=== PATIENT | male | born 1950 | race Caucasian/White ===

== ENCOUNTER → 2018-04-21 19:35 | Outpatient (CLI) | payer MEDICARE, SELFPAY ==
[2018-04-21 11:25] VITALS: BMI 24.0
[2018-04-21 19:42] LABS: Absolute Lymphocyte Count 1.43 X10^3/ul (0.83-4.51); Absolute Neutrophil Count 2.9 X10^3/uL (2.0-7.7); Basophil# 0.02 X10^3/uL; Basophil% 0.4 % (0-1); Eosinophil# 0.09 X10^3/uL; Eosinophils% 1.8 % (0-5); Hematocrit 44.3 % (40-54); Hemoglobin 14.5 g/dl (13.0-16.5); Lymphocyte # 1.43 X10^3/ul (4.0); Lymphocyte % 28.2 % (19-41); Mean Corp Hgb Conc 32.7 g/gl (32-36); Mean Corpuscular Hgb 29.1 pg (27.0-32.0); Mean Platelet Vol. 9.9 fl (6.2-12.0); Monocyte# 0.58 X10^3/uL; Monocyte% 11.4 % (0-10); Neutrophil # 2.93 X10^3/uL (2.7-7.7); Neutrophil % 57.8 % (47-70); Platelet Count 171 K/mm3 (150-450); RBC Distribution Width CV 12.4 % (11.6-14.6); RBC Distribution Width SD 39.4 fl (35.1-43.9); Red Blood Count 4.98 M/mm3 (4.6-6.2); White Blood Count 5.1 K/mm3 (4.4-11.0)
[2018-04-21 19:46] LABS: POSITIVE COUNT NO; POSITIVE DIFFERENTIAL NO; POSITIVE MORPHOLOGY NO
[2018-04-21 20:10] LABS: ALB/GLOB Ratio 1.3 RATIO (0.9-2.4); AST(SGOT) 25 U/L (15-37); Alanine Aminotransfer ALT/SGPT 36 U/L (16-61); Albumin, Serum 4.1 g/dL (3.2-5.0); Alkaline Phosphatase 85 U/L (45-117); Anion Gap 8 (5-15); BUN 16 mg/dL (7-18); BUN/Creat Ratio 10.7 RATIO (10-20); Calcium,Total 8.9 mg/dL (8.5-10.1); Chloride 105 mmol/L (98-107); Cholesterol 156 mg/dL (200); Creatinine, Serum 1.49 mg/dL (0.70-1.30); EST Glomerular Filtration Rate 50 mL/min (>60); Est Glom Filt Rate - Afr Amer 60 mL/min (>60); Globulin 3.2 g/dL (2.2-4.2); Glucose 101 mg/dL (74-106); High Density Lipoprotein 38 mg/dL; PSA,Total - Annual Screen 3.44 ng/mL (0.00-4.00); Potassium 4.5 mmol/L (3.5-5.1); Protein, Total 7.3 g/dL (6.4-8.2); Sodium Level 142 mmol/L (136-145); Triglycerides 148 mg/dL; Very Low Density Lipoprotein 30 mg/dL (5-40)
== END ==
PROVIDERS: Visit Provider Nurse Practitioner
DX: Z12.5 Encounter for screening for malignant neoplasm of prostate (principal); R35.0 Frequency of micturition; I10 Essential (primary) hypertension
CPT/HCPCS: 80053; 80061; 84153; 85025; G0103

== ENCOUNTER → 2018-07-18 | Outpatient (CLI) | payer MEDICARE, SELFPAY ==
[2018-05-19 12:24] VITALS: BMI 24.3
--- NOTE | 2018-07-18 10:24 | NEURO ---
NCS and/or EMG Patient Report Ordering Doctor: Saranya Bennett DATE OF SERVICE: 07/18/18 This is a left upper extremity EMG and nerve conduction study performed on this 67-year-old male who is right-handed but has had left-sided symptoms for 2 to 3 years including pain numbness tingling and burning which awakens the patient at night. This causes difficulty lying flat. There is also a history of rotator cuff repair on the left and a history of diabetes however this appears to be well controlled. He says all fingers are affected. Left upper extremity sensory and motor nerve conduction studies performed. The median motor and sensory distal latency is moderate to severely prolonged with severe reduction of amplitude and conduction velocity. The ulnar motor and sensory and radial sensory response is unremarkable. The median F wave is prolonged. Left upper extremity needle electromyography is performed. Muscles evaluate included the first interosseous, abductor pollicis brevis, brachial radialis, biceps, triceps and deltoid muscles. The abductor pollicis brevis muscle did demonstrate large motor units with early recruitment, increased insertional activity and 1+ fibrillation potentials. All other muscles including other C8 muscles demonstrated normal insertional activity with absence of pathologic spontaneous activity, normal motor unit recruitment pattern amplitude was otherwise noted. Impression: This is an abnormal elective physiologic study of left upper extremity consistent with severe carpal tunnel syndrome at the left wrist.
== END | disposition home or self-care (01) ==
LOC: PSN 06:47
PROVIDERS: Family Provider Nurse Practitioner; PCP Nurse Practitioner; Referring Provider Nurse Practitioner; Visit Provider Nurse Practitioner
DX: M79.2 Neuralgia and neuritis, unspecified (principal); R20.0 Anesthesia of skin
CPT/HCPCS: 95886; 95909

== ENCOUNTER → 2018-07-31 | Outpatient (CLI) | payer MEDICARE, SELFPAY ==
[2018-07-31 10:31] VITALS: BMI 24.3
--- NOTE | 2018-07-31 10:40 | RAD_ITS ---
STUDY: X-RAY - CERVICAL SPINE REASON FOR EXAM: Male, 67 years old. Neck pain. TECHNIQUE: 4 view(s) of the cervical spine were obtained. COMPARISON: None FINDINGS: Normal anterior atlantoaxial articulation. Normal odontoid process. Straightening of normal cervical lordosis compatible with muscle spasm or patient positioning. No significant motion in flexion or extension. Disc space narrowing C3-C4 to C6-C7 with small marginal osteophytes at several levels. Multilevel uncovertebral joint hypertrophy. The soft tissue structures are unremarkable. RAD/Cerv Spine 4 or 5 Views IMPRESSION: Multilevel degenerative changes of the cervical spine. No significant motion in flexion or extension. Electronically Signed: Carloz Patterson MD at 5:31 EDT , Service support ,
== END | disposition home or self-care (01) ==
LOC: HPRAD 10:39
PROVIDERS: Family Provider Nurse Practitioner; PCP Nurse Practitioner; Referring Provider Orthopaedic Surgery; Visit Provider Orthopaedic Surgery
DX: M54.2 Cervicalgia (principal); R20.0 Anesthesia of skin
CPT/HCPCS: 72050

== ENCOUNTER → 2019-09-11 20:52 | Outpatient (CLI) | payer MEDICARE, SELFPAY ==
[2019-09-11 15:21] VITALS: BMI 22.9
[2019-09-11 21:10] LABS: Absolute Lymphocyte Count 1.61 X10^3/uL (0.83-4.51); Absolute Neutrophil Count 3.8 X10^3/uL (2.0-7.7); Basophil# 0.03 X10^3/uL; Basophil% 0.5 % (0-1); Eosinophil# 0.11 X10^3/uL; Eosinophils% 1.8 % (0-5); Hematocrit 43.1 % (40-54); Lymphocyte # 1.61 X10^3/ul (4.0); Lymphocyte % 26.5 % (19-41); Mean Corp Hgb Conc 32.5 g/dL (32-36); Mean Corpuscular Hgb 29.3 pg (27.0-32.0); Mean Corpuscular Volume 90.2 fL (80-94); Mean Platelet Vol. 10.6 fl (6.2-12.0); Monocyte# 0.53 X10^3/uL; Monocyte% 8.7 % (0-10); NRBC Flagged by Analyzer 0 % (0-5); Neutrophil # 3.77 X10^3/uL (2.7-7.7); Neutrophil % 62.2 % (47-70); Platelet Count 155 K/mm3 (150-450); RBC Distribution Width CV 12.3 % (11.6-14.6); RBC Distribution Width SD 40.9 fl (35.1-43.9); Red Blood Count 4.78 M/mm3 (4.6-6.2); White Blood Count 6.1 K/mm3 (4.4-11.0)
[2019-09-11 21:26] LABS: ALB/GLOB Ratio 1.4 RATIO (0.9-2.4); AST(SGOT) 19 U/L (15-37); Alanine Aminotransfer ALT/SGPT 41 U/L (16-61); Albumin, Serum 4.1 g/dL (3.2-5.0); Alkaline Phosphatase 72 U/L (45-117); Anion Gap 4 (5-15); BUN 16 mg/dL (7-18); BUN/Creat Ratio 15.1 RATIO (10-20); Calcium,Total 9.1 mg/dL (8.5-10.1); Chloride 109 mmol/L (98-107); Cholesterol 162 mg/dL (200); Creatinine, Serum 1.06 mg/dL (0.70-1.30); EST Glomerular Filtration Rate 74 mL/min (>60); Est Glom Filt Rate - Afr Amer 89 mL/min (>60); Glucose 122 mg/dL (74-106); High Density Lipoprotein 35 mg/dL; Potassium 3.9 mmol/L (3.5-5.1); Protein, Total 7.1 g/dL (6.4-8.2); Sodium Level 141 mmol/L (136-145); Triglycerides 328 mg/dL; Very Low Density Lipoprotein 66 mg/dL (5-40)
== END ==
PROVIDERS: PCP Nurse Practitioner; Referring Provider Nurse Practitioner; Visit Provider Nurse Practitioner
DX: I10 Essential (primary) hypertension (principal)
CPT/HCPCS: 80053; 80061; 85025

== ENCOUNTER → 2020-10-30 | Outpatient (CLI) | payer MEDICARE, OTHER, SELFPAY ==
[2020-10-30 23:37] LABS: Absolute Lymphocyte Count 1.31 X10^3/uL (0.83-4.51); Absolute Neutrophil Count 5.5 X10^3/uL (2.0-7.7); Basophil# 0.05 X10^3/uL; Basophil% 0.7 % (0-1); Eosinophil# 0.05 X10^3/uL; Eosinophils% 0.7 % (0-5); Hematocrit 42.9 % (40-54); Hemoglobin 14.2 g/dL (13.0-16.5); Lymphocyte # 1.31 X10^3/ul (0.83-4.51); Lymphocyte % 17.8 % (19-41); Mean Corp Hgb Conc 33.1 g/dL (32-36); Mean Corpuscular Hgb 29.8 pg (27.0-32.0); Mean Corpuscular Volume 89.9 fL (80-94); Mean Platelet Vol. 9.9 fl (6.2-12.0); Monocyte# 0.41 X10^3/uL; Monocyte% 5.6 % (0-10); NRBC Flagged by Analyzer 0 % (0-5); Neutrophil % 74.8 % (47-70); Platelet Count 156 K/mm3 (150-450); RBC Distribution Width CV 12.3 % (11.6-14.6); Red Blood Count 4.77 M/mm3 (4.6-6.2); White Blood Count 7.4 K/mm3 (4.4-11.0)
[2020-10-31 00:04] LABS: ALB/GLOB Ratio 1.1 RATIO (0.9-2.4); AST(SGOT) 20 U/L (15-37); Alanine Aminotransfer ALT/SGPT 44 U/L (16-61); Albumin, Serum 3.8 g/dL (3.2-5.0); Alkaline Phosphatase 75 U/L (45-117); Anion Gap 3 (5-15); BUN 22 mg/dL (7-18); BUN/Creat Ratio 21.6 RATIO (10-20); Calcium,Total 8.7 mg/dL (8.5-10.1); Chloride 105 mmol/L (98-107); Cholesterol 151 mg/dL (200); Creatinine, Serum 1.02 mg/dL (0.70-1.30); EST Glomerular Filtration Rate 77 mL/min (>60); Est Glom Filt Rate - Afr Amer 93 mL/min (>60); Globulin 3.6 g/dL (2.2-4.2); Glucose 194 mg/dL (74-106); High Density Lipoprotein 47 mg/dL; PSA,Total- Diagnostic 4.31 ng/mL (0.0-4.0); Potassium 4.2 mmol/L (3.5-5.1); Protein, Total 7.4 g/dL (6.4-8.2); Sodium Level 137 mmol/L (136-145); Triglycerides 117 mg/dL; Very Low Density Lipoprotein 23 mg/dL (5-40)
== END | disposition home or self-care (01) ==
PROVIDERS: PCP Nurse Practitioner; Referring Provider Nurse Practitioner; Visit Provider Nurse Practitioner
DX: I10 Essential (primary) hypertension (principal); E11.65 Type 2 diabetes mellitus with hyperglycemia; R35.0 Frequency of micturition
CPT/HCPCS: 80053; 80061; 83036; 84153; 85025

== ENCOUNTER → 2021-11-16 | Outpatient (CLI) | payer MEDICARE, OTHER, SELFPAY ==
[2021-11-16 22:30] LABS: Absolute Lymphocyte Count 1.71 X10^3/uL (0.83-4.51); Absolute Neutrophil Count 4.4 X10^3/uL (2.0-7.7); Basophil# 0.04 X10^3/uL; Basophil% 0.6 % (0-1); Eosinophil# 0.07 X10^3/uL; Hematocrit 42.9 % (40-54); Hemoglobin 14.3 g/dL (13.0-16.5); Lymphocyte # 1.71 X10^3/ul (0.83-4.51); Lymphocyte % 24.7 % (19-41); Mean Corp Hgb Conc 33.3 g/dL (32-36); Mean Corpuscular Hgb 30.2 pg (27.0-32.0); Mean Corpuscular Volume 90.5 fL (80-94); Mean Platelet Vol. 10.4 fl (6.2-12.0); Monocyte# 0.57 X10^3/uL; Monocyte% 8.2 % (0-10); NRBC Flagged by Analyzer 0 % (0-5); Neutrophil # 4.43 X10^3/uL (2.7-7.7); Neutrophil % 64.2 % (47-70); Platelet Count 164 K/mm3 (150-450); RBC Distribution Width CV 12.2 % (11.6-14.6); RBC Distribution Width SD 40.5 fl (35.1-43.9); Red Blood Count 4.74 M/mm3 (4.6-6.2); White Blood Count 6.9 K/mm3 (4.4-11.0)
[2021-11-16 22:55] LABS: ALB/GLOB Ratio 1.1 RATIO (0.9-2.4); AST(SGOT) 18 U/L (15-37); Alanine Aminotransfer ALT/SGPT 36 U/L (16-61); Alkaline Phosphatase 97 U/L (45-117); Anion Gap 7 (5-15); BUN 26 mg/dL (7-18); BUN/Creat Ratio 22.6 RATIO (10-20); Chloride 105 mmol/L (98-107); Cholesterol 175 mg/dL (200); Creatinine, Serum 1.15 mg/dL (0.70-1.30); EST Glomerular Filtration Rate 67 mL/min (>60); Est Glom Filt Rate - Afr Amer 81 mL/min (>60); Globulin 3.6 g/dL (2.2-4.2); Glucose 112 mg/dL (74-106); High Density Lipoprotein 38 mg/dL; PSA,Total - Annual Screen 5.96 ng/mL (0.00-4.00); Potassium 4.5 mmol/L (3.5-5.1); Protein, Total 7.6 g/dL (6.4-8.2); Sodium Level 139 mmol/L (136-145); Thyroid Stim Hormone (TSH) 4.63 uIU/mL (0.358-3.74); Triglycerides 248 mg/dL; Very Low Density Lipoprotein 50 mg/dL (5-40)
== END | disposition home or self-care (01) ==
PROVIDERS: PCP Nurse Practitioner; Visit Provider Nurse Practitioner
DX: I10 Essential (primary) hypertension (principal); E11.65 Type 2 diabetes mellitus with hyperglycemia; R97.20 Elevated prostate specific antigen [PSA]
CPT/HCPCS: 80053; 80061; 84153; 84443; 85025; G0103

== ENCOUNTER → 2022-01-11 | Outpatient (CLI) | payer MEDICARE, OTHER, SELFPAY ==
[2022-01-11 23:45] LABS: PSA,Total- Diagnostic 7.03 ng/mL (0.0-4.0); Thyroid Stim Hormone (TSH) 2.06 uIU/mL (0.358-3.74)
[2022-01-14 15:29] LABS: PSA, Free 0.67 ng/mL; PSA, Free % 11.7 % (.)
== END | disposition home or self-care (01) ==
PROVIDERS: PCP Nurse Practitioner; Visit Provider Nurse Practitioner
DX: R35.0 Frequency of micturition (principal); E11.65 Type 2 diabetes mellitus with hyperglycemia; E03.9 Hypothyroidism, unspecified; R97.20 Elevated prostate specific antigen [PSA]
CPT/HCPCS: 84153; 84154; 84443

== ENCOUNTER → 2023-01-06 | Outpatient (CLI) | payer MEDICARE, OTHER, SELFPAY ==
[2023-01-06 21:34] LABS: Absolute Lymphocyte Count 1.85 X10^3/uL (0.83-4.51); Absolute Neutrophil Count 4.2 X10^3/uL (2.0-7.7); Basophil# 0.05 X10^3/uL; Basophil% 0.7 % (0-1); Eosinophil# 0.29 X10^3/uL; Eosinophils% 4.2 % (0-5); Hematocrit 43.7 % (40-54); Hemoglobin 14.2 g/dL (13.0-16.5); Lymphocyte # 1.85 X10^3/ul (0.83-4.51); Lymphocyte % 26.7 % (19-41); Mean Corp Hgb Conc 32.5 g/dL (32-36); Mean Corpuscular Hgb 29.5 pg (27.0-32.0); Mean Corpuscular Volume 90.9 fL (80-94); Mean Platelet Vol. 10.2 fl (6.2-12.0); Monocyte# 0.52 X10^3/uL; Monocyte% 7.5 % (0-10); NRBC Flagged by Analyzer 0 % (0-5); Neutrophil # 4.16 X10^3/uL (2.7-7.7); Platelet Count 181 K/mm3 (150-450); RBC Distribution Width CV 12.6 % (11.6-14.6); RBC Distribution Width SD 42.3 fl (35.1-43.9); Red Blood Count 4.81 M/mm3 (4.6-6.2); White Blood Count 6.9 K/mm3 (4.4-11.0)
[2023-01-06 21:55] LABS: ALB/GLOB Ratio 1.1 RATIO (0.9-2.4); AST(SGOT) 29 U/L (15-37); Alanine Aminotransfer ALT/SGPT 61 U/L (16-61); Alkaline Phosphatase 86 U/L (45-117); Anion Gap 4 (5-15); BUN 22 mg/dL (7-18); BUN/Creat Ratio 21.6 RATIO (10-20); Calcium,Total 9.1 mg/dL (8.5-10.1); Chloride 107 mmol/L (98-107); Cholesterol 255 mg/dL (200); Creatinine, Serum 1.02 mg/dL (0.70-1.30); EST Glomerular Filtration Rate 76 mL/min (>60); Est Glom Filt Rate - Afr Amer 92 mL/min (>60); Globulin 3.5 g/dL (2.2-4.2); Glucose 113 mg/dL (74-106); High Density Lipoprotein 37 mg/dL; Magnesium 2.3 mg/dL (1.6-2.6); Potassium 4.7 mmol/L (3.5-5.1); Protein, Total 7.5 g/dL (6.4-8.2); Sodium Level 140 mmol/L (136-145); Thyroid Stim Hormone (TSH) 4.13 uIU/mL (0.358-3.74); Triglycerides 389 mg/dL; Very Low Density Lipoprotein 78 mg/dL (5-40)
[2023-01-06 22:30] LABS: Hemoglobin A1c 6.1 % (3.8-5.6)
== END | disposition home or self-care (01) ==
PROVIDERS: PCP Nurse Practitioner; Referring Provider Nurse Practitioner; Visit Provider Nurse Practitioner
DX: E11.65 Type 2 diabetes mellitus with hyperglycemia (principal); G25.81 Restless legs syndrome; E03.9 Hypothyroidism, unspecified; I10 Essential (primary) hypertension
CPT/HCPCS: 80053; 80061; 83036; 83735; 84443; 85025

== ENCOUNTER → 2023-03-24 | Outpatient (CLI) | payer MEDICARE, OTHER, SELFPAY ==
--- OUTSIDE RECORDS SUMMARY | 2023-03-24 20:52 | XMS RPT_ITS | CCD ---
Author Name Unknown Address [address] [place] [address] Organization [facility] Care Team Providers Care 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 Name Role Phone Donald AGENCY CASHIER.Jerel EID Primary Care Provide r Radha Lazo DO Unavailable None, No PCP Unavailable Unavailable Unavailable Unavailable Donald AGENCY CASHIER.Jerel EID Primary Care Provide r Radha Lazo DO Unavailable Jerel Clemens Unavailable [phone] Donald AGENCY CASHIER.Jerel EID Primary Care Provide r YUSUF ODEN Referring Unavailable Donald, . Jerel L Primary Care Unavailab YUSUF Salazar Attending Unavailable Donald, Ms. Beaver L Primary Care Unavailab thuan Clemens, Ms. Beaver L Referring Unavailab YUSUF Salazar Attending Unavailable YUSUF ODEN Referring Unavailable YUSUF ODEN Attending Unavailable YUSUF ODEN Attending Unavailable YUSUF ODEN Attending Unavailable PCP, Pt States None Referring Unavailable Donald AGENCY CASHIER-Jerel EID Primary Care Provide r ALFREDO MARIE Attending Unavail able Zeina Chaparro Referring Unavailable Zeina Chaparro Attending Unavailable HANNAH WAY Attending Unavailable JEREL CLEMENS Primary Care Unavailable BRAYDON TELLEZ Attending Unavailable ERIN COE Referring Unavailable BRAYDON TELLEZ Referring Unavailable DESI NICOLAS Attending Unavailable DESI NICOLAS Referring Unavailable Allergies Allergy Classification Reported Allergen(s) Allergy Type Date of Onset Reaction(s) Facility (12 sources) Acetaminophen / HYDROcodone; Translations: [HYDROCODONE-ACETA MINOPHEN] Drug Allergy 1 Other: See Comments, Unknown [facility] (15 sources) Acetaminophen / oxyCODONE; Translations: [Percocet TABS] Drug Allergy 1 Intolerance, Unknown [facility] (12 sources) traMADol; Translations: [TRAMADOL HCL] Drug Allergy 1 Intolerance, Unknown [facility] (2 sources) Acetaminophen / HYDROcodone; Translations: [Vicodin TABS] Drug Allergy KF-Nfpuqcw-Su rma 411 DO Work Phone: (2 sources) Acetaminophen / traMADol; Translations: [traMADol-Acetamin ophen TABS] Drug Allergy [facility]Zuddhg[facility]-No rma 411 DO Work Phone: Medications Current Medications Medication Drug Class(es) Dates Sig (Normalized) Sig (Original) polyethylene glycol 3350 204376 mg / potassium chloride 2970 mg / sodium bicarbonate 6740 mg / sodium chloride 5860 mg / sodium sulfate 44335 mg powder for oral solution (1 source) Osmotic Laxative Start: 12-08-2022 End: 12-08-2022 peg 3350-Electrolytes (GOLYTELY) 236-22.74-6.74 -5.86 gram suspension Indications: Colon cancer screening Take 4,000 mL by mouth one time only for 1 dose. Refer to printed prep instructions from your provider. 4000 mL 0 12/08/2022 12/08/2022 Active Completed/Discontinued Medications Medication Drug Class(es) Dates Sig (Normalized) Sig (Original) ascorbic acid 500 mg chewable tablet (2 sources) Vitamin C Ascorbic Acid (STRAWBERRY C) 500 mg chew Take by mouth. 0 Active Problems Active Problems Problem Classification Problem Date Documented Date Episodic/Chronic Anxiety disorders (1 source) Anxiety disorder, unspecified; Translations: [Anxiety] Onset: 03-15-2023 Chronic Diabetes mellitus with complications (10 sources) Type 2 diabetes mellitus; Translations: [Type 2 diabetes mellitus with diabetic polyneuropathy] Onset: 12-20-2021 Chronic Diabetes mellitus without complication (1 source) Latent autoimmune diabetes mellitus in adult; Translations: [Other specified diabetes mellitus without complications] Onset: 12-02-2022 12-08-2022 Chronic Disorders of lipid metabolism (6 sources) Hyperlipidemia; Translations: [Hyperlipidemia, unspecified] Onset: 02-09-2012 02-09-2012 Chronic Esophageal disorders (1 source) Gastroesophageal reflux disease; Translations: [Gastro-esophageal reflux disease without esophagitis] 01-02-2023 Chronic Essential hypertension (6 sources) Hypertensive disorder; Translations: [Essential (primary) hypertension] Onset: 10-18-2010 10-18-2010 Chronic Headache; including migraine (6 sources) Migraine with aura; Translations: [Migraine with aura, not intractable, without status migrainosus] Onset: 05-16-2012 05-16-2012 Chronic Miscellaneous mental health disorders (1 source) Globus sensation; Translations: [Globus sensation] Onset: 02-17-2023 Chronic Non-Hodgkin`s lymphoma (2 sources) Unspecified B-cell lymphoma, extranodal and solid organ sites; Translations: [Cutaneous B-cell lymphoma (HCC)] Onset: 03-07-2023 Chronic Other endocrine disorders (6 sources) Male hypogonadism; Translations: [Testicular hypofunction] Onset: 10-20-2011 10-20-2011 Chronic Other male genital disorders (3 sources) Male erectile dysfunction, unspecified; Translations: [Erectile dysfunction] Onset: 12-08-2022 12-08-2022 Chronic Other nervous system disorders (9 sources) Mortons neuroma of right foot; Translations: [Lesion of plantar nerve, right lower limb] Onset: 12-20-2021 Chronic Other nutritional; endocrine; and metabolic disorders (6 sources) Metabolic syndrome X; Translations: [Metabolic syndrome] Onset: 02-09-2012 02-09-2012 Chronic Other screening for suspected conditions (not mental disorders or infectious disease) (8 sources) Raised prostate specific antigen; Translations: [Elevated prostate specific antigen [PSA]] Onset: 02-05-2022 Episodic Other upper respiratory disease (6 sources) Allergic rhinitis; Translations: [Allergic rhinitis, unspecified] Onset: 10-18-2010 10-18-2010 Chronic Other upper respiratory disease (1 source) Feeling of lump in throat; Translations: [Globus sensation] 12-08-2022 Episodic Residual codes; unclassified (6 sources) Obstructive sleep apnea syndrome; Translations: [Obstructive sleep apnea (adult) (pediatric)] Onset: 02-07-2012 02-07-2012 Chronic Thyroid disorders (1 source) Hypothyroidism; Translations: [Hypothyroidism, unspecified] Onset: 12-02-2022 12-08-2022 Chronic Past or Other Problems Problem Classification Problem Date Documented Date Episodic/Chronic Calculus of urinary tract (6 sources) Kidney stone; Translations: [Calculus of kidney] Onset: 1 10-18-2010 Episodic Diabetes mellitus without complication (6 sources) Impaired fasting glycemia; Translations: [Impaired fasting glucose] Onset: 2 02-09-2012 Episodic Malaise and fatigue (6 sources) Fatigue; Translations: [Other fatigue] Onset: 2 10-20-2011 Episodic Mycoses (6 sources) Onychomycosis; Translations: [Tinea unguium] Onset: 2 Episodic Other connective tissue disease (9 sources) Capsulitis of metatarsophalangeal joint of right foot; Translations: [Other enthesopathy of right foot and ankle] Onset: 2 Episodic Other connective tissue disease (9 sources) Pain in right foot; Translations: [Pain in right foot] Onset: 2 Episodic Other injuries and conditions due to external causes (6 sources) Corneal foreign body; Translations: [Foreign body in cornea, unspecified eye, initial encounter] Onset: 7 04-22-2016 Episodic Other skin disorders (6 sources) Asteatosis cutis; Translations: [Xerosis cutis] Onset: 2 Episodic Residual codes; unclassified (6 sources) Family history of diabetes mellitus; Translations: [Family history of diabetes mellitus] Onset: 1 02-15-2021 Episodic Residual codes; unclassified (6 sources) Family history of prostate cancer; Translations: [Family history of malignant neoplasm of prostate] Onset: 2 10-20-2011 Episodic Results Test Name Value Interpretation Reference Range Facil ity Vital Signs Date Time Vital Sign Value Performing Clinician Facility 03-24-2022 08:16-0500 Body weight 72.58 kg Jerel Clemens Work Phone: QL-Vxwuqwn-Axwxhgh nd Work Phone: 03-24-2022 08:16-0500 Diastolic blood pressure 84 mm[Hg] Jerel Clemens Work Phone: HV-Zyfouff-Xpvmkoy nd Work Phone: 03-24-2022 08:16-0500 Heart rate 64 /min Jerel Clemens Work Phone: DT-Lhkxckl-Nivjuly nd Work Phone: 03-24-2022 08:16-0500 Systolic blood pressure 138 mm[Hg] Jerel Clemens Work Phone: PJ-Ixfmumy-Jccpqda nd Work Phone: 01-21-2022 09:59-0500 Body height 175.3 cm Yusuf Luo DPM Work Phone: [facility] 01-21-2022 09:59-0500 Body temperature 98.6 [degF] Yusuf Luo DPM Work Phone: [facility] 01-21-2022 09:59-0500 Body weight 77.11 kg Yusuf Luo DPM Work Phone: [facility] 01-18-2022 10:42-0500 Body temperature 96.3 [degF] No PCP None KL-Hcvucfb-Jyix a 411 DO Work Phone: 01-18-2022 10:42-0500 Body weight 68.04 kg No PCP None BJ-Zjgmvfv-Raior 411 DO Work Phone: 01-18-2022 10:42-0500 Diastolic blood pressure 68 mm[Hg] No PCP None SY-Ghjjhde-Adsgu 411 DO Work Phone: 01-18-2022 10:42-0500 Heart rate 64 /min No PCP None WE-Roimbfr-Kwqgu 411 DO Work Phone: 01-18-2022 10:42-0500 Systolic blood pressure 124 mm[Hg] No PCP None TY-Yycgvou-Eixsj 411 DO Work Phone: 12-29-2021 08:28-0500 Body height 175.3 cm Yusuf Luo DPM Work Phone: [facility] 12-29-2021 08:28-0500 Body temperature 98.91 [degF] Yusuf Luo DPM Work Phone: [facility] 12-29-2021 08:28-0500 Body weight 77.11 kg Yusuf Luo DPM Work Phone: [facility] 12-20-2021 11:18-0400 Body height 175.3 cm Yusuf Luo DPM Work Phone: [facility] 12-20-2021 11:18-0400 Body temperature 98.4 [degF] Yusuf Luo DPM Work Phone: [facility] 12-20-2021 11:18-0400 Body weight 77.11 kg Yusuf Luo DPM Work Phone: [facility] Encounters Encounter Date Encounter Type Care Provider Facility Start: 03-15-2023 End: 03-16-2023 ambulatory DESI NICOLAS Facility:[facility] Start: 03-15-2023 End: 03-16-2023 ambulatory DESI NICOLAS Facility:[facility] Start: 03-07-2023 End: 03-08-2023 ambulatory BRAYDON TELLEZ Facility:[facility] Start: 03-07-2023 End: 03-07-2023 ambulatory BRAYDON Huynh ROSALINDA Facility:[facility] Start: 02-17-2023 End: 02-17-2023 ambulatory ALFREDO SULLIVAN Facility:[facility] Start: 01-05-2023 End: 01-05-2023 Office outpatient visit 15 minutes Yusuf Oden MD Work Phone: [facility] Procedures Date Procedure Procedure Detail Performing Clinician Start: 11-16-2022 Follow-up visit Start: 03-31-2022 Follow-up visit Start: 02-17-2022 Follow-up visit Start: 11-28-2016 Colonoscopy Yusuf dietrich DPM Work Phone: Plan of Treatment Date Care Activity Detail Author Start: 11-10-2023 Annual PCP Team Chronic Disease Visit Annual PCP Team Chronic Disease Visit [facility] Start: 01-04-2023 3 comp foot exam completed DIABETIC FOOT EXAM [facility] Start: 10-21-2022 Influenza vaccination [facility] Start: 03-31-2022 VANESSA, Provider: Yusuf Oden, Status: Shamir, Time: 1:20 PM VANESSA, Provider: Yusuf Oden, Status: Shamir, Time: 1:20 PM EW-Sfowhdr-Gigkeezof Work Phone: Start: 02-20-2022 ADVANCE DIRECTIVE DISCUSSION ADVANCE DIRECTIVE DISCUSSION [facility] Start: 02-20-2022 DEPRESSION ASSESSMENT DEPRESSION ASSESSMENT [facility] Start: 02-17-2022 VANESSA, Provider: Yusuf Oden, Status: Shamir, Time: 9:50 AM VANESSA, Provider: Yusuf Oden, Status: Pen, Time: 9:50 AM HU-Pllhyui-Dsyhm 411 DO Work Phone: Start: 10-21-2021 Influenza vaccination INFLUENZA (#1) [facility] Start: 05-23-2021 Urine microalbumin profile [facility] Start: 02-20-2021 ADVANCE DIRECTIVE DISCUSSION ADVANCE DIRECTIVE DISCUSSION [facility] Start: 02-20-2021 DEPRESSION ASSESSMENT DEPRESSION ASSESSMENT [facility] Start: 11-28-2017 Colonoscopy COLONOSCOPY [facility] Start: 11-28-2017 COLORECTAL CANCER SCREENING COLORECTAL CANCER SCREENING [facility] Start: 06-22-2015 Hepatitis B surface antibody level LDL CHOLESTEROL [facility] Start: 12-22-2014 Hemoglobin A1c/Hemoglobin.total in Blood HBA1C [facility] Start: 2010 Hepatitis B Vaccine (1 of 3 - Risk 3-dose series) Hepatitis B Vaccine (1 of 3 - Risk 3-dose series) [facility] Start: 2010 RSV Vaccine (1 - 1-dose 60+ series) RSV Vaccine (1 - 1-dose 60+ series) [facility] Start: 2000 SHINGRIX VACCINE (1 of 2) SHINGRIX VACCINE (1 of 2) [facility] Start: 2000 Zoster Vaccines (1 of 2) Zoster Vaccines (1 of 2) [facility] Start: 12-26-1995 COLOGUARD (FIT-DNA) COLOGUARD (FIT-DNA) [facility] Start: 12-26-[address] COLONOGRAPHY [facility] Start: 12-26-1995 FECAL OCCULT BLOOD FECAL OCCULT BLOOD [facility] Start: 12-26-1995 SIGMOIDOSCOPY SIGMOIDOSCOPY [facility] Start: 1972 DTaP/Tdap/Td Vaccines (1 - Tdap) DTaP/Tdap/Td Vaccines (1 - Tdap) [facility] Start: 1969 Urine screening for protein Diabetes: Urine Protein Screening [facility] Start: 1968 ANNUAL PCP TEAM CHRONIC DISEASE VISIT ANNUAL PCP TEAM CHRONIC DISEASE VISIT [facility] Start: 1968 BP CONTROLLED (<130/80) BP CONTROLLED (<130/80) [facility] Start: 1968 Hepatitis C screening Hepatitis C Screening [facility] Start: 1960 3 comp foot exam completed DIABETIC FOOT EXAM [facility] Start: 1960 Diabetic foot examination Diabetes: Foot Exam [facility] Start: 1960 Glaucoma screening Diabetes: Retinopathy Screening [facility] Start: 1960 Hepatitis B screening URINE ALBUMIN:CREATININE RATIO [facility] Start: 1960 Hepatitis C antibody, confirmatory test DILATED RETINAL EXAM [facility] Start: 1956 Pneumococcal Vaccine: 65+ (1 - PCV) Pneumococcal Vaccine: 65+ (1 - PCV) [facility] Start: 1956 Pneumococcal Vaccine: 65+ Years (1 - PCV) Pneumococcal Vaccine: 65+ Years (1 - PCV) [facility] Start: 1956 PNEUMOCOCCAL: 65+ (1 - PCV) PNEUMOCOCCAL: 65+ (1 - PCV) [facility] Start: 06-25-1951 COVID-19 VACCINE (#1) COVID-19 VACCINE (#1) [facility] Start: 1950 Cyanocobalamin vitamin b-12 Vitamin B-12 [facility] Start: 1950 Diabetes: Celiac Disease Screening Diabetes: Celiac Disease Screening [facility] Start: 1950 Hemoglobin A1c measurement Diabetes: Hemoglobin A1C [facility] Start: 1950 Lipid panel Lipid Panel [facility] Start: 1950 Medicare Annual Wellness Visit Medicare Annual Wellness Visit (AWV) [facility] Start: 1950 Screening for malignant neoplasm of colon [facility] Start: 1950 Thyroid stimulating hormone measurement TSH Level [facility] End: 12-09-2023 EGD DIAGNOSTIC EGD DIAGNOSTIC Endoscopy Routine Globus sensation 1 Occurrences starting 12/08/2022 until 12/09/2023 [facility] Work Phone: Immunizations Immunization Date Immunization Notes Care Provider Fa cili 12-20-2019 influenza, high dose seasonal, preservative-free Zeina LEWIS-Tamiko Work Phone: [facility] 12-20-2019 influenza virus vacc ine, unspecified formulation Zeina LEWIS-Tamiko Work Phone: [facility] 05-24-2011 tetanus toxoid, redu tiffanie diphtheria toxoid, and acellular pertussis vaccine, adsorbed Yusuf Luo DPM Work Phone: [facility] Payers Date Payer Category Payer Unknown [id number] 2017 Medicare [id number] 2017 Medicare [id number] 2016 Unknown [id number] 1950 Unknown [id number] [id number]. [id number] 1950 Unknown [id number] [id number]. [id number] 1950 Unknown [id number] 2.16. [id number] 1950 Unknown [id number] 2.16. [id number] 1950 Unknown [id number] 2.16. [id number] Self-pay [id number] Social History Date Type Detail Facility Start: 10-19-2011 Tobacco smoking status NHIS Never smoked tobacco [facility] Start: 10-19-2011 Tobacco use and exposure Smokeless tobacco non-user [facility] Start: 12-20-2021 End: 11-09-2022 Alcohol intake Current drinker of alcohol (finding) [facility] Start: 12-20-2021 End: 08-22-2022 Alcohol intake [facility] Start: 03-18-2013 Alcohol Comment occasionally [facility] Start: 1950 Sex Assigned At Not on file [facility] Start: 01-04-2022 End: 01-14-2022 Exposure to SARS-CoV-2 (event) Not sure [facility] Start: 08-22-2022 End: 11-08-2022 [facility] [employer] [facility] Has the Ongo, IMANIN, or water [employer] threatened to shut off services in your home in past 12Mo No [facility] Do you belong to any clubs or organizations such as mu-ism groups, unions, fraternal or athletic groups, or school groups? Yes [facility] How often do you att end meetings of the clubs or organizations you belong to? Patient refused [facility] Are you now , , , , never or living with a partner? Living with partner [facility] Do you feel stress - tense, restless, nervous, or anxious, or unable to sleep at night because your mind is troubled all the time - these days [OSQ] Not at all [facility] (I/We) worried whesevero er (my/our) food would run out before (I/we) got money to buy more. Never true [facility] The food that (I/we) bought just didn't last, and (I/we) didn't have money to get more. DK or Refused [facility] Tobacco smoking stat us WVIS Tobacco smoking consumption unknown [facility] Work Phone: Medical Equipment Procedure Code Equipment Code Equipment Origin al Text Equipment Identifier Dates Start: 07-16-2014 Clinical Notes 10-20-2011 to 03-15-2023 Yusuf Oden MD - 01/05/2023 8:10 AM ESTPatient InstructionsZeina Chaparro PA-C - 12/08/2022 12:22 PM Abram Luo DPM - 01/21/2022 10:04 AM EST Note Date & Type Note Facility 03-15-2023 Note HNO ID: [id number] Author: DESI NICOLAS APRN.CNP Service: ? Author Type: Nurse Practitioner Type: Procedures Filed: 03/15/2023 10:27 Note Text: BEDSIDE PROCEDURE NOTE BONE MARROW BIOPSY Performed by: Desi Nicolas APRN.AMBULANCE DISPATCHER Authorized by: Desi Nicolas APRN.CNP Where was Patient When this Procedure was Performed [facility] Ambulatory Informed Consent Consent Obtained: Written [place] Protocol A moment to CARE was completed. SIGN IN Personnel directly involved with the procedure wore the appropriate PPE. Special Equipment: Yes (Power Drill) Patient/Surrogate Stated/Verified: Patient name, Date of , Relevant allergies and Intended procedure TIME OUT Intended patient and procedure match the source document(s). Consent documented and matches the intended procedure. Relevant labs, photos, and/or imaging studies have been reviewed. Correct side/site marked and visible. Medications required for procedure verified. No fire risk assessment and interventions applicable. No implant(s) inserted. Pre-procedure Details: The area was prepped with povidone Iodine (Betadine) and allowed to dry. A sterile partial body drape was applied following the usual aseptic technique. Medications: Local Anesthesia (see MAR): Lidocaine 2% (5 mL) Procedure Details: Patient Position: Left lateral decubitus Aspiration Laterality: Unilateral Aspiration Site: Right posterior superior iliac crest Biopsy Laterality: Unilateral Biopsy Site: Right posterior sperior iliac crest . Hubsphere biopsy system was used. Using aseptic technique, bone marrow aspiration was performed. A touch prep was taken. Core biopsy was obtained 1.1 cm. The core biopsy was confirmed. Pressure dressing applied to Bone Marrow site(s). Hemostasis maintained. Assisting Clinician(s): Kasey (Dunamu) Tatiana AVELAR Post-procedure Details: Patient tolerated the procedure well with no immediate complications Immediate Complications: None Estimated Blood Loss: none Specimens Sent: bone marrow analysis, bone marrow chromosome analysis, flow cytometry and DNA extraction Teaching Complete: Bone Marrow Biopsy Post-procedure teaching complete Post-procedure care was reviewed and explained. Patient instructed to communicate complaints of redness, swelling, increased or unresolved pain, bleeding chills, bruising, and/or fever. Patient verbalized understanding. SIGN OUT All instruments, equipment, possible retained foreign bodies accounted for. SIGNATURE: Desi Nicolas APRN.CNP PATIENT NAME: Jennifer Fraser DATE: March 15, 2023 TIME: 10:15 AM [facility] 03-15-2023 Note HNO ID: [id number] Author: DESI NICOLAS APRN.CNP Service: ? Author Type: Nurse Practitioner Type: Progress Notes Filed: 03/15/2023 10:27 Note Text: UNIVERSAL PROTOCOL / SAFETY CHECKLIST Procedure to be Performed: Bone marrow biopsy and aspirate Sign In: A Moment of CARE was completed. Personnel directly involved with the procedure wore the appropriate PPE (Personal Protective Equipment). Special equipment: On control drill Patient/Surrogate Stated/Verified: PATIENT VERIFIED(optional for EMERGENT procedures): Patient name, Date of , Relevant allergies, and The intended procedure Time Out Communication: Intended patient and procedure match the source documents. Consent documented and matches the intended procedure. Relevant labs, photos, and/or imaging studies have been reviewed. Correct side/site marked and visible. Medications required for procedure verified. No fire risk assessment and interventions applicable. No implant(s) inserted. Sign Out: SIGN OUT (optional for EMERGENT procedures): All specimen containers correctly labeled. All instruments, equipment, possible retained foreign bodies accounted for. Post-procedure follow-up management communicated and Plan of Care Visit completed when applicable. Desi Nicolas APRN.CNP March 15, 2023 10:06 AM [facility] 03-07-2023 Note HNO ID: [id number] Author: BRAYDON TELLEZ MD Service: ? Author Type: Physician Type: Progress Notes Filed: 03/07/2023 10:55 Note Text: Jennifer Fraser is a 72 year old male who has been sent by Erin Gomez MD for my opinion regarding gastric MALT lymphoma. My final recommendations will be communicated back to the requesting physician by way of shared Medical record or letter via US mail. History of Present Illness: 72 year old male who has been sent by Erin Gomez MD for my opinion regarding gastric MALT lymphoma. He has had gastric pain at [facility] for years aggravated by spicy foods treated with Pepto-Bismol. He also had throat irritation/hoarseness. He lost about 10 pounds in 2021. He is eating healthy now-several small meals. EGD/colon performed 02/17/[address] Coe. Per Dr. Coe: Treatment for H pylori was sent to his preferred pharmacy 02/24/23: bismuth subsalicylate 262 mg po qid; doxycycline hyclate 100 mg po bid; metronidazole 250 mg po qid; pantoprazole 40 mg po bid. The patient did not take bismuth subsalicylate (only a few doses b/o he is diabetic. Cardiology referral also placed, given atrial fibrillation noted during the procedure. PAST MEDICAL HISTORY Diagnosis Date Allergic rhinitis 10/18/2010 Diabetes mellitus (HCC) 2014 HTN (hypertension) 10/18/2010 Migraine with visual aura 05/16/2012 Renal stone 2009 Sleep apnea PAST SURGICAL HISTORY Procedure Laterality Date EXERCISE STRESS TEST WITH NUCLEAR IMAGES PANEL 2013 abnormal execise stress NUCLEAR EXERCISE STRESS TEST 2013 normal PAST SURGICAL HISTORY OF 2 arthroscopies of the L knee, and open surgeries for intrinsic derangement PAST SURGICAL HISTORY OF removal of renal stone ( not sure of the method) PAST SURGICAL HISTORY OF fibula-tibiaotomy of the L PAST SURGICAL HISTORY OF right knee arthroscopy and reconstruction RECONSTRUCTION ROTATOR CUFF AVULSION CHRONIC 07/2010 left Current Outpatient Medications Medication Sig pantoprazole DR (PROTONIX) 40 mg tablet Take 1 tablet by mouth two times a day for 10 days. bismuth subsalicylate (PEPTO-BISMOL) 262 mg chewable tablet Take 1 tablet by mouth four times daily for 10 days. doxycycline hyclate (VIBRAMYCIN) 100 mg capsule Take 1 capsule by mouth two times a day for 10 days. metroNIDAZOLE (FLAGYL) 250 mg tablet Take 1 tablet by mouth four times daily for 10 days. Ascorbic Acid (STRAWBERRY C) 500 mg chew Take by mouth. cholecalciferol, vitamin D3, (VITAMIN D3 ORAL) Take 2,000 Units by mouth once daily. VITAMIN K2 ORAL Take by mouth. multivit with iron,hematinic (SUPER B-COMPLEX ORAL) Take by mouth. OTC NUTRITIONAL SUPPLEMENT once daily. QC Turmeric Apolic Acid Bererdine with Cylon Cinnamon Zinc MCT Oil blood sugar diagnostic (BLOOD GLUCOSE TEST) test strip Use as instructed twice daily 250.0 Blood-Glucose Meter misc 1 Each once daily. Lancets lancets Use as instructed once daily 250.0 metFORMIN (GLUCOPHAGE) 500 mg tablet Take 1 tablet by mouth daily with breakfast. No current facility-administered medications for this visit. 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 FAMILY HISTORY Problem Relation Age of Onset Blood Disease Mother leukemia--age 53 Cancer Mother removal of a large tumor from the abdomen Prostate Cancer Father to the bone. at age 84 None Sister Diabetes Brother Diabetes Father Carotid occlusion Diabetes Sister Review Of Systems: All systems reviewed with pertinent positives and negatives as outlined in the HPI. Physical Examination: BP 131/81 Pulse 63 Ht 175.3 cm (5' 9 ) Wt 68.9 kg (152 lb) SpO2 98% BMI 22.45 kg/m? PHYSICAL EXAMINATION: General appearance: Well appearing, alert, in no acute distress, well-hydrated, well nourished. Skin: Skin color, texture, turgor normal, no suspicious rashes or lesions Head: Normocephalic, no masses, lesions, tenderness or abnormalities Eyes: Anicteric sclera. Pupils equal round and reactive to light. Extraocular movements intact. Oropharynx: Lips, mucosa, and tongue normal, teeth and gums normal, oropharynx normal Neck: Supple, no adenopathy; thyroid symmetric, normal size Lungs: Lungs clear to auscultation. No wheezing, rhonchi, rales. Heart: RRR without murmur, gallop, or rubs. Abdomen: soft, non-tender. Bowel sounds normal. No masses, organomegaly Extremities: No deformities, edema, skin discoloration, clubbing or cyanosis. (more content not included)... [facility] [place] 01-05-2023 History of Present illness Narrative Virtual or Telephone Consent A telephone visit (audio only) between the patient (at the originating site) and the provider (at the distant site) was utilized to provide this telehealth service. Verbal consent was requested and obtained from Jennifer Fraser on this date, 01/05/23 for a telehealth visit. HPI 72 y.o. male presents today with elevated PSA. Was put on cipro last year when PSa was initially high. Family history includes father had prostate ca at 83 and bone marrow ca. Denies any urinary concerns. He is diabetic. PVR 93cc. ED are adequate, on and off, would like to try medication for this. Will start him on Sildenafil 100mg. Seen for consult 01/18/22. 03/24/22 - Did not get an MRI because he is claustrophobic. ExoDx was obtained instead. 03/31/22 - seen over [facility]. in [place] currently ExoDx 03/2021 24 PSA history 03/2022 - 4.1 12/2021 - 7.03 (11% free) 10/2021 - 5.96 01/05/2023 - seen [facility] via [facility] for a psa check. Doing well. Lab Results Component Value Date PSA 5.27 (H) 11/18/2022 PSA 4.11 (H) 03/24/2022 Current Medications: Current Outpatient Medications Medication Sig Dispense Refill sildenafil (Viagra) 100 mg tablet Take 1 tablet (100 mg) by mouth once daily. 1 HOUR BEFORE NEEDED No current facility-administered medications for this visit. Active Problems: Jennifer Fraser is a 72 y.o. male with the following Problems and Medications. Patient Active Problem List Diagnosis Diabetes 1.5, managed as type 2 ([facility]) Elevated PSA Erectile dysfunction Hypothyroidism Current Outpatient Medications Medication Sig Dispense Refill sildenafil (Viagra) 100 mg tablet Take 1 tablet (100 mg) by mouth once daily. 1 HOUR BEFORE NEEDED No current facility-administered medications for this visit. PMH: No past medical history on file. PSH: No past surgical history on file. FMH: No family history on file. Allergies: Allergies Allergen Reactions Oxycodone-Acetaminophen Unknown Physical Exam: General: Well developed, well nourished, alert and cooperative, appears in no acute distress Eyes: Non-injected conjunctiva, sclera clear, no proptosis Cardiac: Extremities appear well perfused. No edema, cyanosis or pallor. Lungs: Breathing is easy, non-labored. Speaking in clear and complete sentences. Normal diaphragmatic movement. MSK: Ambulatory with steady gait, unassisted Neuro: alert and oriented to person, place and time Psych: Demonstrates good judgement and reason, without hallucinations, abnormal affect or abnormal behaviors. Skin: no obvious lesions, no rashes. Assesment/Plan PSA up from earlier this year, down from year prior. Clearly some degree of artifactual elevation, but cannot definitively rule out a prostate cancer at this time with elevation since 03/2022. Will check again in 6 mo and see back over [facility] at that time. Scribe Attestation By signing my name below, I, Jessica Jack , Scribe attest that this documentation has been prepared under the direction and in the presence of Yusuf Oden MD. documented in this encounter [facility] Work Phone: 12-08-2022 Note HNO ID: [id number] Author: Zeina Chaparro PA-C Service: ? Author Type: Physician Sand Caster Apprentice Type: Progress Notes Filed: 12/08/2022 1:05 PM Note Text: VIRTUAL VISIT NEW PATIENT NAME: Jennifer Fraser [facility] NO: [id number] DATE: 12/08/2022 REASON FOR VISIT Jennifer Fraser [id number] 1950 has requested a video telemedicine initial consultation at the request of Self. Jennifer Fraser verbalized informed consent to proceed with the video telemedicine initial consultation. Jennifer Fraser was informed that the details of this video visit would be recorded as part of their electronic medical record. My recommendations will be conveyed to the consulting provider by way of shared electronic medical record, fax, or U.S. Mail. Patient location at time of call: [place] This visit was conducted as a virtual visit. I have communicated my name and active licensure. The patient's identity and physical location were verified at the time of this visit. Either the patient or their legal enrollment eligibility representative has been informed of the risks and benefits of -- and alternatives to -- treatment through a remote evaluation and consents to proceed with the evaluation remotely. No chief complaint on file. PRESENTING COMPLAINT Jennifer Fraser is a 71 year old male with PMHx of Migraines, DM2, HTN, HLD, ALLISON who presents for colonoscopy and EGD consult. Patient due for screening colonoscopy. States he saw PCP recently and mentioned feeling burning/coughing sensation in his throat with coffee or other triggers. Denies dysphagia or odynphagia. Denies smoking, reports occasional etoh use and denies illicit drug use. Denies family hx of GI malignancy. Denies heartburn/reflux. Denies chronic NSAID use. Denies fevers/chills, chest pain, sob, n/v, abdominal pain, hematemesis, hematochezia, melena or unintentional weight loss at this time. Colonoscopy 11/2016: - Three diminutive polyps in the rectum and in the transverse colon, removed with a cold biopsy forceps. Resected and retrieved. - One 5 mm polyp in the ascending colon, removed with a cold snare. Resected and retrieved. - Internal hemorrhoids. Bx: 1. Colon, ascending, polypectomy (A) - Tubular adenoma. 2. Colon, transverse, polyps x 2, polypectomies (B) - Multiple fragments of adenoma. 3. Rectum, polypectomy (C) - Hyperplastic polyp. Bx: 1. Colon, ascending, polypectomy (A) - Tubular adenoma. 2. Colon, transverse, polyps x 2, polypectomies (B) - Multiple fragments of tubular adenoma. 3. Rectum, polypectomy (C) - Hyperplastic polyp Answers submitted by the patient for this visit: Review of Systems Gastroenterology (Submitted on 12/01/2022) Fever: No Chills: No Night Sweats: No Unitentional Weight Change: No A Cough: Yes Difficulty Breathing: No Chest Pain: No Belly pain: No A feeling of fullness or have belly pain after eating: No Food getting stuck in your throat or chest after eating: No Nausea - that is, a feeling like you could vomit: No Regurgitation - that is, food or liquid coming back up into your throat or mouth without vomiting, or feel burning behind your breast bone: No Loss of appetite: No To throw up or vomit: No Blood in your stools: No Black tarry stools: No Loose or watery stools: No The feeling like you need to empty your bowels right away - that is, feel as if you would have an accident: No Bowel incontinence - that is, have an accident because you cannot make it to the bathroom in time: No Problems with straining while having bowel movements , hard or lumpy stools, or feel unfinished (that you have not passed all your stool): No Pain in rectum or anus during bowel movements: No Problems with jaundice - that is, yellow discoloration of your skin or eyes, now or in the past: No Problems with having to flush the toilet more than two times due to oily stool, or see stool floating with oil: No CURRENT MEDICATIONS Current Outpatient Medications Medication Sig Dispense Refill Ascorbic Acid (STRAWBERRY C) 500 mg chew Take by mouth. cholecalciferol, vitamin D3, (VITAMIN D3 ORAL) Take 2,000 Units by mouth once daily. VITAMIN K2 ORAL Take by mouth. multivit with iron,hematinic (SUPER B-COMPLEX ORAL) Take by mouth. OTC NUTRITIONAL SUPPLEMENT once daily. QC Turmeric Apolic Acid Bererdine with Cylon Cinnamon Zinc MCT Oil blood sugar diagnostic (BLOOD GLUCOSE TEST) test strip Use as instructed twice daily 250.0 2 Bottle 11 Blood-Glucose Meter misc 1 Each once daily. 1 Each 0 Lancets lancets Use as instructed once daily 250.0 100 Each 3 metFORMIN (GLUCOPHAGE) 500 mg tablet Take 1 tablet by mouth daily with breakfast. 30 tablet 11 No current facility-administered medications for this visit. Percocet [Oxycodone-Acetaminophen], Ultram [Tramadol Hcl], and Vicodin [Hydrocodone-Acetaminophen] Recent Labs: CBC: WBC (k/uL) Date Value 08/06/2014 5.22 06/21/2014 6.56 Hematocrit (%) (more content not included)... [facility] 12-08-2022 Instructions Zeina Chaparro PA-C - 12/08/2022 12:43 PM EDT Images from the original note were not included. Please call [phone] to schedule your EGD and colonoscopy Please apple picker your colonoscopy prep at your earliest convenience Bowel Preparation Instructions for: Golytely, Nulytely, Trilyte or Colyte (polyethylene glycol 3350 and electrolytes) IF YOU DO NOT FOLLOW THESE DIRECTIONS, YOUR COLONOSCOPY WILL BE CANCELLED. [place] Instructions: Your bowel must be empty so that your doctor can clearly view your colon. Follow all of the instructions in this handout EXACTLY as they are written. Do NOT eat any solid food the ENTIRE day before your colonoscopy. Drink only clear liquids. Buy your bowel preparation at least 5 days before your colonoscopy. TRANSPORTATION on the Day of Your Exam A responsible person MUST be present with you at Check In prior to your colonoscopy and REMAIN in the endoscopy area until you are discharged. You are NOT ALLOWED to drive, take a taxi or bus, or leave the Endoscopy Center ALONE. If you do not have a responsible cdl team truck driver (family member or friend) with you to take you home, your exam cannot be done with sedation and will be cancelled. Please bring a list of all of your current medications, including any Over-the Counter medications with you. Medications If you take insulin, diabetic medications or blood thinners such as Coumadin (warfarin), Plavix (clopidogrel), Ticlid (ticlopidine hydrochloride), Agrylin (anagrelide), Xarelto (Rivaroxaban), Pradaxa (Dabigatran), Eliquis (Apixaban), and Effient (Prasugrel). You MUST call the doctors who orders those medicines for instructions on altering the dosage before your colonoscopy. All other medications should be taken the day of the exam with a sip of water including ASPIRIN. Five (5) Days Before Your Colonoscopy Do NOT take medicines that stop diarrhea - such as Imodium, Kaopectate, or Pepto Bismol. Do NOT take fiber supplements - such as Metamucil, Citrucel, or Perdiem. Do NOT take products that contain iron - such as multi-vitamins (the label lists what is in the products). Do NOT take Vitamin E. Buy the prescription bowel preparation solution at your local pharmacy or drugstore pharmacy. 01/2019 Bowel Preparation Instructions for: Golytely, Nulytely, Trilyte or Colyte (polyethylene glycol 3350 and electrolytes) Three (3) Days Before Your Colonoscopy Do NOT eat high-fiber foods - such as popcorn, beans, seeds (flax, sunflower, quinoa), multigrain bread, nuts, salad/vegetables, or fresh and dried fruit. One (1) Day Before Your Colonoscopy Only drink clear liquids the ENTIRE DAY before your colonoscopy. Do NOT eat any solid foods. Drink at least 8 ounces of clear liquids every hour after waking up. The clear liquids you can drink include: Clear Liquid (NO RED LIQUIDS) DO NOT DRINK Gatorade, Pedialyte or Powerade Clear broth or bouillon Coffee or tea (no milk or non-dairy creamer) Carbonated and non-carbonated soft drinks Dilip-Aid or other fruit flavored drinks Strained fruit juices (no pulp) Jell-O, popsicles, hard candy Water Alcohol Milk or non-dairy creamers Noodles or vegetables in soup Juice with pulp Liquid you cannot see through Do not use tobacco/vaping products The bowel preparation solution will be consumed in two parts. Mix the solution the evening before your colonoscopy and refrigerate before drinking. You may add the flavor pack that came with the bowel preparation. Do NOT add ice, sugar or any other flavorings to the solution. Part 1 At 6:00 PM - Evening before your colonoscopy Drink an 8-oz glass of bowel preparation every 10 minutes for a total of 8 glasses. You may continue to drink clear liquids until midnight. Part 2 On the day of your colonoscopy you may drink clear liquids up to (three) 3 hours before your procedure. 4 1/2 hours before your colonoscopy Drink an 8-oz glass of bowel preparation every 10 minutes for a total of 8 glasses. Fifteen (15) minutes later, drink an 8-oz glass of clear liquids every 15 minutes for a total of 2 glasses. You may continue to drink clear liquids up to (three) 3 hours before your exam. 2 01/2019 documented in this encounter [facility] 12-08-2022 History of Present illness Narrative VIRTUAL VISIT NEW PATIENT NAME: Jennifer Fraser [facility] NO: [id number] DATE: 12/08/2022 REASON FOR VISIT Jennifer Fraser [id number] 1950 has requested a video telemedicine initial consultation at the request of Self. Jennifer Fraser verbalized informed consent to proceed with the video telemedicine initial consultation. Jennifer Fraser was informed that the details of this video visit would be recorded as part of their electronic medical record. My recommendations will be conveyed to the consulting provider by way of shared electronic medical record, fax, or U.S. Mail. Patient location at time of call: [place] This visit was conducted as a virtual visit. I have communicated my name and active licensure. The patient's identity and physical location were verified at the time of this visit. Either the patient or their legal enrollment eligibility representative has been informed of the risks and benefits of -- and alternatives to -- treatment through a remote evaluation and consents to proceed with the evaluation remotely. No chief complaint on file. PRESENTING COMPLAINT Jennifer Fraser is a 71 year old male with PMHx of Migraines, DM2, HTN, HLD, ALLISON who presents for colonoscopy and EGD consult. Patient due for screening colonoscopy. States he saw PCP recently and mentioned feeling burning/coughing sensation in his throat with coffee or other triggers. Denies dysphagia or odynphagia. Denies smoking, reports occasional etoh use and denies illicit drug use. Denies family hx of GI malignancy. Denies heartburn/reflux. Denies chronic NSAID use. Denies fevers/chills, chest pain, sob, n/v, abdominal pain, hematemesis, hematochezia, melena or unintentional weight loss at this time. Colonoscopy 11/2016: - Three diminutive polyps in the rectum and in the transverse colon, removed with a cold biopsy forceps. Resected and retrieved. - One 5 mm polyp in the ascending colon, removed with a cold snare. Resected and retrieved. - Internal hemorrhoids. Bx: 1. Colon, ascending, polypectomy (A) - Tubular adenoma. 2. Colon, transverse, polyps x 2, polypectomies (B) - Multiple fragments of adenoma. 3. Rectum, polypectomy (C) - Hyperplastic polyp. Bx: 1. Colon, ascending, polypectomy (A) - Tubular adenoma. 2. Colon, transverse, polyps x 2, polypectomies (B) - Multiple fragments of tubular adenoma. 3. Rectum, polypectomy (C) - Hyperplastic polyp Answers submitted by the patient for this visit: Review of Systems Gastroenterology (Submitted on 12/01/2022) Fever: No Chills: No Night Sweats: No Unitentional Weight Change: No A Cough: Yes Difficulty Breathing: No Chest Pain: No Belly pain: No A feeling of fullness or have belly pain after eating: No Food getting stuck in your throat or chest after eating: No Nausea - that is, a feeling like you could vomit: No Regurgitation - that is, food or liquid coming back up into your throat or mouth without vomiting, or feel burning behind your breast bone: No Loss of appetite: No To throw up or vomit: No Blood in your stools: No Black tarry stools: No Loose or watery stools: No The feeling like you need to empty your bowels right away - that is, feel as if you would have an accident: No Bowel incontinence - that is, have an accident because you cannot make it to the bathroom in time: No Problems with straining while having bowel movements , hard or lumpy stools, or feel unfinished (that you have not passed all your stool): No Pain in rectum or anus during bowel movements: No Problems with jaundice - that is, yellow discoloration of your skin or eyes, now or in the past: No Problems with having to flush the toilet more than two times due to oily stool, or see stool floating with oil: No CURRENT MEDICATIONS Current Outpatient Medications Medication Sig Dispense Refill Ascorbic Acid (STRAWBERRY C) 500 mg chew Take by mouth. cholecalciferol, vitamin D3, (VITAMIN D3 ORAL) Take 2,000 Units by mouth once daily. VITAMIN K2 ORAL Take by mouth. multivit with iron,hematinic (SUPER B-COMPLEX ORAL) Take by mouth. OTC NUTRITIONAL SUPPLEMENT once daily. QC Turmeric Apolic Acid Bererdine with Cylon Cinnamon Zinc MCT Oil blood sugar diagnostic (BLOOD GLUCOSE TEST) test strip Use as instructed twice daily 250.0 2 Bottle 11 Blood-Glucose Meter misc 1 Each once daily. 1 Each 0 Lancets lancets Use as instructed once daily 250.0 100 Each 3 metFORMIN (GLUCOPHAGE) 500 mg tablet Take 1 tablet by mouth daily with breakfast. 30 tablet 11 No current facility-administered medications for this visit. Percocet [Oxycodone-Acetaminophen], Ultram [Tramadol Hcl], and Vicodin [Hydrocodone-Acetaminophen] Recent Labs: CBC: WBC (k/uL) Date Value 08/06/2014 5.22 06/21/2014 6.56 Hematocrit (%) Date Value 08/06/2014 41.6 MCV (fL) Date Value 08/06/2014 87.8 Platelet Count (k/uL) Date Value 08/06/2014 173 Lymph% (%) Date Value 08/06/2014 27.6 Hepatic Function Panel: Albumin (g/dL) Date Value 06/21/2014 4.0 Bilirubin, Total (mg/dL) Date Value 06/21/2014 0.6 Alkaline Phosphatase (U/L) Date Value 06/21/2014 73 AST (U/L) Date Value 06/21/2014 29 ALT (U/L) Date Value 06/21/2014 33 Protein, Total (g/dL) Date Value 06/21/2014 7.0 PAST MEDICAL HISTORY PAST MEDICAL HISTORY Diagnosis Date Allergic rhinitis 10/18/2010 Diabetes mellitus (HCC) 2014 HTN (hypertension) 10/18/2010 Migraine with visual aura 05/16/2012 Renal stone 2009 Sleep apnea PAST SURGICAL HISTORY PAST SURGICAL HISTORY Procedure Laterality Date EXERCISE STRESS TEST WITH NUCLEAR IMAGES PANEL 2014 abnormal execise stress NUCLEAR EXERCISE STRESS TEST 2014 normal PAST SURGICAL HISTORY OF 2 arthroscopies of the L knee, and open surgeries for intrinsic derangement PAST SURGICAL HISTORY OF removal of renal stone ( not sure of the method) PAST SURGICAL HISTORY OF fibula-tibiaotomy of the L PAST SURGICAL HISTORY OF right knee arthroscopy and reconstruction RECONSTRUCTION ROTATOR CUFF AVULSION CHRONIC 07/2010 left FAMILY HISTORY FAMILY HISTORY Problem Relation Age of Onset Blood Disease Mother leukemia--age 53 Cancer Mother removal of a large tumor from the abdomen Prostate Cancer Father to the bone. at age 84 None Sister Diabetes Brother Diabetes Father Carotid occlusion Diabetes Sister SOCIAL HISTORY Social History Tobacco Use Smoking status: Never Smokeless tobacco: Never Vaping Use Vaping Use: Never used Substance Use Topics Alcohol use: Yes Alcohol/week: 35.0 standard drinks of alcohol Types: 14 Cans of Beer (12oz) per week Comment: occasionally Drug use: No ROS EyesNegative for vision changes, diplopia or epiphora. Ears, Mouth, nose, throat:No problems Cardiovascular: No Problems Respiratory: Negative for cough, wheezing and shortness of breath Gastrointestinal : SEE HPI Genitourinary: Negative Musuloskeletal: Normal Integumentary: no rashes, lesions, or jaundice Neurological: No history of neurologic problems Endocrine: Negative for cold or heat intolerance, polyuria, polydipsia and goiter. Psychiatric: Cooperative and agreeable Allergic/ Immunologic: Negative All others negative PHYSICAL EXAMINATION Unable to perform, patient unable to connect to video on zoom Assessment IMPRESSION Jennifer Fraser is a 71 year old male with PMHx of Migraines, DM2, HTN, HLD, ALLISON who presents for colonoscopy and EGD consult. Patient due for screening colonoscopy. Also mentions globus sensation? When drinking coffee, reports significant sinus issues, unsure if related to post nasal drip though PCP referred for EGD in addition. NO reflux. No chronic NSAID use. No other acute GI complaints at this time. PLAN EGD and colonoscopy ordered Risks/benefits/procedure discussed Red flags for in person care discussed Follow up prn I spent a total of 25 minutes on the date of the service which included [id number] patient care, completing clinical documentation, counseling and educating the patient/family/caregiver, and ordering medications, tests, or procedures. Zeina Chaparro PA-C December 08, 2022 12:29 PM documented in this encounter [facility] 11-09-2022 Note HNO ID: [id number] Author: Hannah Way MD Service: ? Author Type: Physician Type: Progress Notes Filed: 11/09/2022 10:57 AM Note Text: Jennifer Fraser is a 71 year old male who presents for wants to be part of the [facility] study Sees an provider in the [place] of [facility] Traveled here as a friend mentioned about the diabetes study being done here Is interested as patient is looking to try and get a cgm He is only no once a day metformin His last a1c was 6 He watches his diet closely Denies any other reason for being seen here in [place] He has had diabetes for the last 10yrs Current Outpatient Medications on File Prior to Visit Medication Sig Ascorbic Acid (STRAWBERRY C) 500 mg chew Take by mouth. cholecalciferol, vitamin D3, (VITAMIN D3 ORAL) Take 2,000 Units by mouth once daily. VITAMIN K2 ORAL Take by mouth. multivit with iron,hematinic (SUPER B-COMPLEX ORAL) Take by mouth. OTC NUTRITIONAL SUPPLEMENT once daily. QC Turmeric Apolic Acid Bererdine with Cylon Cinnamon Zinc MCT Oil blood sugar diagnostic (BLOOD GLUCOSE TEST) test strip Use as instructed twice daily 250.0 Blood-Glucose Meter misc 1 Each once daily. Lancets lancets Use as instructed once daily 250.0 metFORMIN (GLUCOPHAGE) 500 mg tablet Take 1 tablet by mouth daily with breakfast. tobramycin (TOBREX) 0.3 % ophthalmic solution ibuprofen (MOTRIN) 800 mg tablet Take 1 tablet by mouth every 8 hours as needed for Pain. (Patient not taking: Reported on 11/09/2022) No current facility-administered medications on file prior to visit. BP 130/72 Pulse 60 Ht 174 cm (5' 8.5 ) Wt 69.4 kg (153 lb) BMI 22.93 kg/m? PHYSICAL EXAM: General Appearance: Well appearing, alert, in no acute distress, well-hydrated, well nourished. ASSESSMENT/PLAN: 1. Type 2 diabetes mellitus with peripheral neuropathy (HCC) - ICD9: 250.60, 357.2, ICD10: E11.42 Patient advised that the study has stopped recruiting patient at this point Discussed that he does have a well controlled diabetes and he is doing what he is supposed to do and cgm is not indicated He will continue to Follow up with his [place] provider Hannah Way MD . [facility] 01-21-2022 History of Present illness Narrative Patient: Jennifer Fraser Date: January 21, 2022 PCP: Jerel Clemens APRN.AMBULANCE DISPATCHER Subjective: Jennifer Fraser is a 71 year old male who presents for dispensing of diabetic shoes and custom molded inserts. Patient admits to regular care with his PCP and states his fasting blood glucose was 120mg/dL this morning. Patient denies paresthesias in the bl feet. Patient admits to n/v/f/c/sob/cp/abdominal pain, and denies any other lower extremity complaints. Past Medical History: PAST MEDICAL HISTORY Diagnosis Date Allergic rhinitis 10/18/2010 Diabetes mellitus (HCC) 2015 HTN (hypertension) 10/18/2010 Migraine with visual aura 05/16/2012 Renal stone 2009 Sleep apnea Past Surgical History: PAST SURGICAL HISTORY Procedure Laterality Date EXERCISE STRESS TEST WITH NUCLEAR IMAGES PANEL 2014 abnormal execise stress NUCLEAR EXERCISE STRESS TEST 2014 normal PAST SURGICAL HISTORY OF 2 arthroscopies of the L knee, and open surgeries for intrinsic derangement PAST SURGICAL HISTORY OF removal of renal stone ( not sure of the method) PAST SURGICAL HISTORY OF fibula-tibiaotomy of the L PAST SURGICAL HISTORY OF right knee arthroscopy and reconstruction RECONSTRUCTION ROTATOR CUFF AVULSION CHRONIC 07/2010 left Allergies: Percocet [Oxycodone-Acetaminophen], Percocet [Oxycodone-Acetaminophen], Ultram [Tramadol Hcl], Ultram [Tramadol Hcl], Vicodin [Hydrocodone-Acetaminophen], and Vicodin [Hydrocodone-Acetaminophen] Current Outpatient Medications Medication Sig atorvastatin (LIPITOR) 40 mg tablet ibuprofen (MOTRIN) 600 mg tablet lisinopril (ZESTRIL, PRINIVIL) 5 mg tablet LORazepam (ATIVAN) 0.5 mg tab metFORMIN (GLUCOPHAGE) 500 mg tablet tobramycin (TOBREX) 0.3 % ophthalmic solution ibuprofen (MOTRIN) 800 mg tablet Take 1 tablet by mouth every 8 hours as needed for Pain. blood sugar diagnostic (BLOOD GLUCOSE TEST) test strip Use as instructed twice daily 250.0 Blood-Glucose Meter misc 1 Each once daily. Lancets lancets Use as instructed once daily 250.0 metFORMIN (GLUCOPHAGE) 500 mg tablet Take 1 tablet by mouth daily with breakfast. atorvastatin (LIPITOR) 40 mg tablet Take 1 tablet by mouth once daily. aspirin, enteric coated (ECOTRIN LOW STRENGTH) 81 mg EC tablet Take 1 tablet by mouth once daily. lisinopril (ZESTRIL, PRINIVIL) 5 mg tablet Take 1 tablet by mouth once daily. fluticasone 50 mcg/actuation nasal spray Use 2 Sprays in each nostril daily at bedtime. No current facility-administered medications for this visit. Review of Systems Constitutional: Negative for fatigue, fever and unexpected weight change. Respiratory: Negative for cough, shortness of breath and wheezing. Cardiovascular: Negative for chest pain, palpitations and leg swelling. Gastrointestinal: Negative for diarrhea, nausea and vomiting. Endocrine: Negative for cold intolerance, heat intolerance, polydipsia and polyuria. Musculoskeletal: Positive for arthralgias and back pain. Negative for gait problem. Skin: Negative for rash and wound. Neurological: Negative for dizziness, syncope, weakness and headaches. Objective: Physical Exam Temp 37 C (98.6 F) Ht 175.3 cm (5' 9 ) Wt 77.1 kg (170 lb) BMI 25.10 kg/m BMI 25.10 kg/(m^2) DP and PT arteries palpable 1+/4+. CFT< 5 seconds. Skin temperature is Warm to cool. Negative hair growth. Skin is thin and shiny. Mild xerosis to bl lower extremities. 1+ pitting edema to bl lower extremities. Vibratory sensation diminished to hallucal IPJ bl. Protective sensation intact as tested to bl lower extremities with 5.07 [place] monofilament. Positive samia's sign 3rd interspace right foot Range of motion to the ankle joint, subtalar joint, midtarsal joint, and 1st metatarsophalangeal joint is reduced bilateral. Muscle strength against resistance to all lower extremity mm. groups supplying the foot and ankle is 5/5 bilateral. Minimal pain on palpation with focal edema sub 3rd and 4th MPJ right foot. Minimal pain on palpation 3rd interspace between 3rd and 4th Metatarsals distally right foot. Toenails 1-5 bl are discolored, elongated, and thickened, and clinically consistent with onychomycosis. Webspaces 1-4 bl are clean, dry, and intact. No interdigital maceration, no masses, no open lesions. There is certification of therapeutic necessity from the physician managing the patient s diabetes within the last three months in the chart as well as documentation of a physician visit in the past six months that documents presence of Medicare qualifying conditions. The inserts comply with all [facility] requirements for custom molded inserts and they are noted to have total contact between the plantar surface of patient foot, including the arch and the inserts. There is adequate space between the end of the longest toe and the distal end of the shoes, no excessive pressure on the tops or side of the feet and no heel slippage. Procedures: - Dispensed one pair diabetic shoes with three pair custom molded inserts Hemoglobin A1C (%) Date Value 06/21/2014 7.5 Assessment: Saha neuroma, right (primary encounter diagnosis) Capsulitis of metatarsophalangeal (mtp) joint of right foot Pain in right foot Type 2 diabetes mellitus with peripheral neuropathy (hcc) Plan: -Patient examined and evaluated -Diabetic shoes and inserts noted to fit well. Patient indicated that the shoes and inserts were comfortable. -Fitting performed today of depth shoes and custom molded inserts to prevent diabetic ulceration. Proper use and care was reviewed. All questions were answered. The shoes and inserts are suitable for the patient s condition and not substandard. No guarantees were given. Precautions were reviewed. Written instructions, warranty information and a copy of the current [employer] Supplier Standards was provided. -Instructed to contact our office if any foot problems or issues with new diabetic shoes and/or inserts develop before next visit. Return for Appointment as previously scheduled. Yusuf Luo DPM documented in this encounter [facility] 01-04-2022 History of Present illness Narrative Patient: Jennifer Fraser Date: January 04, 2022 PCP: Jerel Clemens APRN.AMBULANCE DISPATCHER Subjective: Jennifer Fraser is a 71 year old male who presents for follow up pain to the right forefoot as well diabetic foot exam and discolored, thickened, elongated toenails. Patient states he has followed all instructions for the right foot pain and this pain is now 1/10. He also states the nails are causing pain and pressure in shoe gear, and is unable to safely manage these nails on their own. Patient admits to regular care with his PCP and states his fasting blood glucose was 125mg/dL this morning. Patient denies paresthesias in the bl feet. Patient admits to n/v/f/c/sob/cp/abdominal pain, and denies any other lower extremity complaints. Past Medical History: PAST MEDICAL HISTORY Diagnosis Date Allergic rhinitis 10/18/2010 Diabetes mellitus (HCC) 2015 HTN (hypertension) 10/18/2010 Migraine with visual aura 05/16/2012 Renal stone 2009 Sleep apnea Past Surgical History: PAST SURGICAL HISTORY Procedure Laterality Date EXERCISE STRESS TEST WITH NUCLEAR IMAGES PANEL 2014 abnormal execise stress NUCLEAR EXERCISE STRESS TEST 2013 normal PAST SURGICAL HISTORY OF 2 arthroscopies of the L knee, and open surgeries for intrinsic derangement PAST SURGICAL HISTORY OF removal of renal stone ( not sure of the method) PAST SURGICAL HISTORY OF fibula-tibiaotomy of the L PAST SURGICAL HISTORY OF right knee arthroscopy and reconstruction RECONSTRUCTION ROTATOR CUFF AVULSION CHRONIC 07/2010 left Allergies: Percocet [Oxycodone-Acetaminophen], Percocet [Oxycodone-Acetaminophen], Ultram [Tramadol Hcl], Ultram [Tramadol Hcl], Vicodin [Hydrocodone-Acetaminophen], and Vicodin [Hydrocodone-Acetaminophen] Current Outpatient Medications Medication Sig atorvastatin (LIPITOR) 40 mg tablet ibuprofen (MOTRIN) 600 mg tablet lisinopril (ZESTRIL, PRINIVIL) 5 mg tablet LORazepam (ATIVAN) 0.5 mg tab metFORMIN (GLUCOPHAGE) 500 mg tablet tobramycin (TOBREX) 0.3 % ophthalmic solution ibuprofen (MOTRIN) 800 mg tablet Take 1 tablet by mouth every 8 hours as needed for Pain. blood sugar diagnostic (BLOOD GLUCOSE TEST) test strip Use as instructed twice daily 250.0 Blood-Glucose Meter misc 1 Each once daily. Lancets lancets Use as instructed once daily 250.0 metFORMIN (GLUCOPHAGE) 500 mg tablet Take 1 tablet by mouth daily with breakfast. atorvastatin (LIPITOR) 40 mg tablet Take 1 tablet by mouth once daily. aspirin, enteric coated (ECOTRIN LOW STRENGTH) 81 mg EC tablet Take 1 tablet by mouth once daily. lisinopril (ZESTRIL, PRINIVIL) 5 mg tablet Take 1 tablet by mouth once daily. fluticasone 50 mcg/actuation nasal spray Use 2 Sprays in each nostril daily at bedtime. No current facility-administered medications for this visit. Review of Systems Constitutional: Negative for fatigue, fever and unexpected weight change. Respiratory: Negative for cough, shortness of breath and wheezing. Cardiovascular: Negative for chest pain, palpitations and leg swelling. Gastrointestinal: Negative for diarrhea, nausea and vomiting. Endocrine: Negative for cold intolerance, heat intolerance, polydipsia and polyuria. Musculoskeletal: Positive for arthralgias and back pain. Negative for gait problem. Skin: Negative for rash and wound. Neurological: Negative for dizziness, syncope, weakness and headaches. Objective: Physical Exam Temp 37.2 C (98.9 F) Ht 175.3 cm (5' 9 ) Wt 77.1 kg (170 lb) BMI 25.10 kg/m BMI 25.10 kg/(m^2) DP and PT arteries palpable 1+/4+. CFT< 5 seconds. Skin temperature is Warm to cool. Negative hair growth. Skin is thin and shiny. Mild xerosis to bl lower extremities. 1+ pitting edema to bl lower extremities. Vibratory sensation diminished to hallucal IPJ bl. Protective sensation intact as tested to bl lower extremities with 5.07 [place] monofilament. Positive samia's sign 3rd interspace right foot Range of motion to the ankle joint, subtalar joint, midtarsal joint, and 1st metatarsophalangeal joint is reduced bilateral. Muscle strength against resistance to all lower extremity mm. groups supplying the foot and ankle is 5/5 bilateral. Minimal pain on palpation with focal edema sub 3rd and 4th MPJ right foot. Minimal pain on palpation 3rd interspace between 3rd and 4th Metatarsals distally right foot. Toenails 1-5 bl are discolored, elongated, and thickened, and clinically consistent with onychomycosis. Webspaces 1-4 bl are clean, dry, and intact. No interdigital maceration, no masses, no open lesions. Procedures: - Toenails 1-5 bl sharply debrided in length and thickness without incident: Meets Q9 - Patients feet measured, foam impressions of bilateral feet taken, and ordered one pair diabetic shoes with three pair custom molded inserts Hemoglobin A1C (%) Date Value 06/21/2014 7.5 Assessment: Onychomycosis (primary encounter diagnosis) Xerosis of skin Saha neuroma, right Capsulitis of metatarsophalangeal (mtp) joint of right foot Pain in right foot Type 2 diabetes mellitus with peripheral neuropathy (hcc) Plan: Comprehensive Diabetic lower extremity examination and evaluation was performed. All findings and treatment recommendations were reviewed with the patient and family member/healthcare network consultant (if present). A detailed history and examination was obtained. I reviewed all pertinent Lab results, Diagnostic & imaging results, Other practitioners charts, and took into consideration Labs or diagnostics that need to be performed. Reviewed the extensive management options for diagnosis or treatment of the above conditions. - Patient is a candidate for the diabetic shoe program at this time, and is educated of the benefits of joining the diabetic shoe program. -patient educated of the etiology of nail fungus. Treatment options of nail fungus explained in detail including risks and benefits. Deferred Lamisil, Penlac, Topical Anitfungals, and an over the counter topical antifungal. -Patient defers biopsy at this point -I reviewed the importance of daily lower extremity inspections and the need for the patient to contact the office with any changes or injury that might occur. Patient is to continue with daily lower extremity inspections and tight blood glucose control. -Patient instructed to use OTC lotion to bl lower extremities daily, and avoid application to webspace's -Patient instructed not to go barefoot and to wear good supportive shoe gear. -patient capsulitis and neuroma pain significantly improved -patient instructed to continue rest, ice, elevate -patient to continue use shoes as modified with felt met pad offloading at all times ambulating -patient WBAT -patient instructed not to go barefoot -Instructed to contact our office if any lower extremity problems develop before next visit Return in about 9 weeks (around 03/08/2022). Yusuf Luo DPM documented in this encounter [facility] 12-20-2021 History of Present illness Narrative Patient: Jennifer Fraser Date: December 20, 2021 PCP: Jerel Clemens APRN.AMBULANCE DISPATCHER Subjective: Jennifer Fraser is a 70 year old male who presents for pain to the right forefoot. Patient states this pain has been present for 15 years, and rates the pain as 6/10 on the pain scale. Patient states the pain is worse with with regular activity, and alleviated by rest. Patient denies injury that preceded this pain. Patient admits to use of OTC topical pain medication with minimal improvement. Patient admits to n/v/f/c/sob/cp/abdominal pain, and denies any other lower extremity complaints. Past Medical History: PAST MEDICAL HISTORY Diagnosis Date Allergic rhinitis 10/18/2010 Diabetes mellitus (HCC) 2015 HTN (hypertension) 10/18/2010 Migraine with visual aura 05/16/2012 Renal stone 2009 Sleep apnea Past Surgical History: PAST SURGICAL HISTORY Procedure Laterality Date EXERCISE STRESS TEST WITH NUCLEAR IMAGES PANEL 2014 abnormal execise stress NUCLEAR EXERCISE STRESS TEST 2014 normal PAST SURGICAL HISTORY OF 2 arthroscopies of the L knee, and open surgeries for intrinsic derangement PAST SURGICAL HISTORY OF removal of renal stone ( not sure of the method) PAST SURGICAL HISTORY OF fibula-tibiaotomy of the L PAST SURGICAL HISTORY OF right knee arthroscopy and reconstruction RECONSTRUCTION ROTATOR CUFF AVULSION CHRONIC 07/2010 left Allergies: Percocet [Oxycodone-Acetaminophen], Percocet [Oxycodone-Acetaminophen], Ultram [Tramadol Hcl], Ultram [Tramadol Hcl], Vicodin [Hydrocodone-Acetaminophen], and Vicodin [Hydrocodone-Acetaminophen] Current Outpatient Medications Medication Sig atorvastatin (LIPITOR) 40 mg tablet ibuprofen (MOTRIN) 600 mg tablet lisinopril (ZESTRIL, PRINIVIL) 5 mg tablet LORazepam (ATIVAN) 0.5 mg tab metFORMIN (GLUCOPHAGE) 500 mg tablet tobramycin (TOBREX) 0.3 % ophthalmic solution ibuprofen (MOTRIN) 800 mg tablet Take 1 tablet by mouth every 8 hours as needed for Pain. blood sugar diagnostic (BLOOD GLUCOSE TEST) test strip Use as instructed twice daily 250.0 Blood-Glucose Meter misc 1 Each once daily. Lancets lancets Use as instructed once daily 250.0 metFORMIN (GLUCOPHAGE) 500 mg tablet Take 1 tablet by mouth daily with breakfast. atorvastatin (LIPITOR) 40 mg tablet Take 1 tablet by mouth once daily. aspirin, enteric coated (ECOTRIN LOW STRENGTH) 81 mg EC tablet Take 1 tablet by mouth once daily. lisinopril (ZESTRIL, PRINIVIL) 5 mg tablet Take 1 tablet by mouth once daily. fluticasone 50 mcg/actuation nasal spray Use 2 Sprays in each nostril daily at bedtime. No current facility-administered medications for this visit. Review of Systems Constitutional: Negative for fatigue, fever and unexpected weight change. Respiratory: Negative for cough, shortness of breath and wheezing. Cardiovascular: Negative for chest pain, palpitations and leg swelling. Gastrointestinal: Negative for diarrhea, nausea and vomiting. Endocrine: Negative for cold intolerance, heat intolerance, polydipsia and polyuria. Musculoskeletal: Positive for arthralgias and back pain. Negative for gait problem. Skin: Negative for rash and wound. Neurological: Negative for dizziness, syncope, weakness and headaches. Objective: Physical Exam Temp 36.9 C (98.4 F) Ht 175.3 cm (5' 9 ) Wt 77.1 kg (170 lb) BMI 25.10 kg/m BMI 25.10 kg/(m^2) DP and PT arteries palpable 1+/4+. CFT< 5 seconds. Skin temperature is Warm to cool. Negative hair growth. Skin is thin and shiny. Mild xerosis to bl lower extremities. 1+ pitting edema to bl lower extremities. Epicritic sensation grossly intact. Positive samia's sign 3rd interspace right foot Range of motion to the ankle joint, subtalar joint, midtarsal joint, and 1st metatarsophalangeal joint is reduced bilateral. Muscle strength against resistance to all lower extremity mm. groups supplying the foot and ankle is 5/5 bilateral. Pain on palpation with focal edema sub 3rd and 4th MPJ right foot. Pain on palpation 3rd interspace between 3rd and 4th Metatarsals distally right foot. Toenails 1-5 bl are discolored, elongated, and thickened. Webspaces 1-4 bl are clean, dry, and intact. No interdigital maceration, no masses, no open lesions. Procedures: - Patient elected to proceed with an injection to the 3rd MPJ capsule today. The risks, benefits, and alternatives to this were discussed. All questions were answered and no guarantee were given. Under aseptic technique an injection was given using a mixture of 0.25 cc 1% lidocaine plain, 0.5cc of Dexamethasone Sodium Phosphate 4mg/mL, and 0.25cc of kenalog 40. This was tolerated well without complications. Injection # 1 to this area. - Patient elected to proceed with an injection to the 3rd interspace saha neuroma today. The risks, benefits, and alternatives to this were discussed. All questions were answered and no guarantee were given. Under aseptic technique an injection was given using a mixture of 0.25 cc 1% lidocaine plain, 0.5cc of Dexamethasone Sodium Phosphate 4mg/mL, and 0.25cc of kenalog 40. This was tolerated well without complications. Injection # 1 to this area. - felt metatarsal pads added to underside of ladle liner in shoes for offloading Hemoglobin A1C (%) Date Value 06/21/2014 7.5 Assessment: Saha neuroma, right (primary encounter diagnosis) Capsulitis of metatarsophalangeal (mtp) joint of right foot Pain in right foot Plan: -patient examined and evaluated -patient was educated on the diagnosis etiology and treatment options -patient elected to have injection performed as noted above, patient will monitor for any possible complications as instructed including but not limited to post injection steroid flare. -patient instructed to rest, ice, elevate -patient to use shoes as modified with felt met pad offloading at all times ambulating -patient WBAT -patient instructed not to go barefoot -Instructed to contact our office if any lower extremity problems develop before next visit Return in about 1 week (around 12/27/2021). Yusuf Luo DPM documented in this encounter [facility] 03-24-2021 History of Present illness Narrative 71 years old male presents today with elevated PSA. Was put on cipro last year when PSa was initially high. Family history includes father had prostate ca at 83 and bone marrow ca. Denies any urinary concerns. He is diabetic. PVR 93cc. ED are adequate, on and off, would like to try medication for this. Will start him on Sildenafil 100mg. Seen for consult 01/18/22.03/24/22 - Did not get an MRI because he is claustrophobic. ExoDx was obtained instead.ExoDx 03/2021 24PSA gplxpyr14/2022 - 7.03 (11% free)10/2021 - 5.96 [id number] Work Phone: documented as of this encounter (statuses as of 12/20/2021) [facility] History of Past illness Narrative* Problem Noted Date Resolved Date Low serum cortisol level 10/20/2011 013 documented as of this encounter (statuses as of 01/04/2022) [facility] History of Past illness Narrative* Problem Noted Date Resolved Date Low serum cortisol level 10/20/2011 013 documented as of this encounter (statuses as of 01/21/2022) [facility] History of Past illness Narrative* Problem Noted Date Resolved Date Low serum cortisol level 10/20/2011 013 documented as of this encounter (statuses as of 05/02/2022) [facility] History of Past illness Narrative* Problem Noted Date Diagnosed Date Resolved Date Low serum cortisol level 10/20/2011 documented as of this encounter (statuses as of 12/08/2022) [address]30-2012 History of Past illness Narrative* Problem Noted Date Diagnosed Date Resolved Date Low serum cortisol level 10/20/2011 documented as of this encounter (statuses as of 01/04/2023) [facility] Diagnosis Saha neuroma, right- Primary Capsulitis of metatarsophalangeal (MTP) joint of right foot Pain in right foot Pain in limb Type 2 diabetes mellitus with peripheral neuropathy (HCC) [facility] Diagnosis Onychomycosis- Primary Dermatophytosis of nail Xerosis of skin Other specified disease of sebaceous glands Saha neuroma, right Capsulitis of metatarsophalangeal (MTP) joint of right foot Pain in right foot Pain in limb Type 2 diabetes mellitus with peripheral neuropathy (HCC) [facility] Diagnosis Saha neuroma, right- Primary Capsulitis of metatarsophalangeal (MTP) joint of right foot Pain in right foot Pain in limb Type 2 diabetes mellitus with peripheral neuropathy (HCC) [facility] Diagnosis Colon cancer screening- Primary Special screening for malignant neoplasms, colon Globus sensation Gastrointestinal malfunction arising from mental factors documented in this encounter [facility] note* Diagnosis Gastroesophageal reflux disease, unspecified whether esophagitis present- Primary documented in this encounter [facility] note* Diagnosis Elevated PSA- Primary Elevated prostate specific antigen (PSA) documented in this encounter [facility] Work Phone: Reason for referral (narrative)* Outpatient Procedure (Routine) - Pending Review Specialty Diagnoses / Procedures Referred By Yesi farooq Referred To [facility] Diagnoses Colon cancer screening Procedures COLONOSCOPY SCREENING COLONOSCOPY FLX DX W/COLLJ SPEC WHEN PFRMD Zeina Chaparro PA-C [address] [id number] [facility] [place] [facility] [place] [address] Referral ID Status Reason Start Date Expiration Date Visits Requested Visits Authorized [id number] Pending Review Auto-Generat ed Referral 3 12/09/2023 1 1 * Outpatient Procedure (Routine) - Pending Review Specialty Diagnoses / Procedures Referred By Yesi farooq Referred To Contact [facility] Diagnoses Globus sensation Procedures EGD DIAGNOSTIC ESOPHAGOGASTRODUODENOSC OPY TRANSORAL DIAGNOSTIC Zeina Chaparro PA-C [address] [place] [address] [facility] [place] [address] [place] [address] Referral ID Status Reason Start Date Expiration Date Visits Requested Visits Authorized [id number] Pending Review Auto-Generat ed Referral 3 12/09/2023 1 1 [facility] Summary Purpose Family History No Family History Records FoundNo Family History Records FoundNo Family History Records FoundNo Family History Records FoundNo Family History Records Found Advance Directives No Advanced Directives Records FoundNo Advanced Directives Records FoundNo Advanced Directives Records FoundNo Advanced Directives Records FoundNo Advanced Directives Records Found Chief Complaint * FUV * ED, ExoDx Additional Source Comments (unrecognized sect ion and content) No Status Records FoundNo Status Records FoundNo Status Records FoundNo Status Records FoundNo Status Records Found INFORMATION SOURCE (unrecogn ized section and content) DATE CREATED AUTHOR AUTHOR'S ORGANIZ ATION 11/25/2022 [employer] DATE CREATED AUTHOR AUTHOR'S ORGANIZ ATION 11/25/2022 [facility] DATE CREATED AUTHOR AUTHOR'S ORGANIZ ATION 03/17/2023 [facility] DATE CREATED AUTHOR AUTHOR'S ORGANIZ ATION 03/23/2023 [facility] Source Comments (unrecognize d section and content) In the event this informatio n is protected by the Federal Confidentiality of Alcohol and Drug Abuse Patient Records regulations: The Federal rules restrict any use of the information to criminally investigate or prosecute any alcohol or drug abuse patient.[facility] the event this information is protected by the Federal Confidentiality of Alcohol and Drug Abuse Patient Records regulations: The Federal rules restrict any use of the information to criminally investigate or prosecute any alcohol or drug abuse patient.[facility] the event this information is protected by the Federal Confidentiality of Alcohol and Drug Abuse Patient Records regulations: The Federal rules restrict any use of the information to criminally investigate or prosecute any alcohol or drug abuse patient.[facility] the event this information is protected by the Federal Confidentiality of Alcohol and Drug Abuse Patient Records regulations: The Federal rules restrict any use of the information to criminally investigate or prosecute any alcohol or drug abuse patient.[facility] the event this information is protected by the Federal Confidentiality of Alcohol and Drug Abuse Patient Records regulations: The Federal rules restrict any use of the information to criminally investigate or prosecute any alcohol or drug abuse patient.[facility] the event this information is protected by the Federal Confidentiality of Alcohol and Drug Abuse Patient Records regulations: The Federal rules restrict any use of the information to criminally investigate or prosecute any alcohol or drug abuse patient.[facility] Care Teams (unrecognized sec tion and content) 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 Relationship Specialty Start Date End Date Jerel Clemens, AGENCY CASHIER.AMBULANCE DISPATCHER PCP - General Family Medicine 04/22/16 [place] [address] [place] [address] Internal Medicine 04/22/16 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 Relationship Specialty Start Date End Date Jerel Clemens, AGENCY CASHIER.AMBULANCE DISPATCHER PCP - General Family Medicine 04/22/16 [place] [address] [place] [address] Internal Medicine 04/22/16 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 Relationship Specialty Start Date End Date Jerel Clemens, AGENCY CASHIER.AMBULANCE DISPATCHER [address] [address] PCP - General Family Medicine 04/22/16 [place] [address] [place] [address] Internal Medicine 04/22/16 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 Relationship Specialty Start [place] [address] [place] [address] Internal Medicine 04/22/16 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 Relationship Specialty Start [place] [address] [place] [address] Internal Medicine 04/22/16 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 Relationship Specialty Start Date End Date Donald Jerel Bee, AGENCY CASHIER-RAGINI [address] [facility] [place] [address] PCP - General 03/24/22 Reason for Visit (unrecogniz ed section and content) Reason Comments colonoscopy consultation FOR RECORDS PERTAINING TO PATIENTS WHO ARE OR HAVE BEEN ENROLLED IN A CHEMICAL DEPENDENCY/SUBSTANCEABUSE PROGRAM, SOME INFORMATION MAY BE OMITTED. This clinical summary was aggregated from multiple sources. Caution should be exercised in using it in the provision of clinical care. This summary normalizes information from multiple sources, and as a consequence, information in this document may materially change the coding, format and clinical context of patient data. In addition, data may be omitted in some cases. CLINICAL DECISIONS SHOULD BE BASED ON THE PRIMARY CLINICAL RECORDS. [employer] [facility]. provides no warranty or guarantee of the accuracy or completeness of information in this document.
[2023-03-24 21:34] LABS: Thyroid Stim Hormone (TSH) 1.16 uIU/mL (0.358-3.74)
== END | disposition home or self-care (01) ==
PROVIDERS: PCP Nurse Practitioner; Referring Provider Nurse Practitioner; Visit Provider Nurse Practitioner
DX: E03.9 Hypothyroidism, unspecified (principal)
CPT/HCPCS: 84443

== ENCOUNTER → 2023-08-22 | Outpatient (CLI) | payer MEDICARE, OTHER, SELFPAY ==
[2023-08-22 21:06] LABS: Thyroid Stim Hormone (TSH) 2.22 uIU/mL (0.358-3.74)
[2023-08-22 21:29] LABS: Hemoglobin A1c 5.8 % (3.8-5.6)
== END | disposition home or self-care (01) ==
PROVIDERS: PCP Nurse Practitioner; Visit Provider Nurse Practitioner
DX: E11.65 Type 2 diabetes mellitus with hyperglycemia (principal); E03.9 Hypothyroidism, unspecified
CPT/HCPCS: 83036; 84443

== ENCOUNTER → 2023-11-21 | Outpatient (CLI) | payer MEDICARE, OTHER, SELFPAY ==
[2023-11-21 21:50] LABS: Absolute Lymphocyte Count 1.44 X10^3/uL (0.83-4.51); Absolute Neutrophil Count 3.9 X10^3/uL (2.0-7.7); Basophil# 0.03 X10^3/uL; Basophil% 0.5 % (0-1); Eosinophils% 1.7 % (0-5); Hematocrit 40.6 % (40-54); Lymphocyte # 1.44 X10^3/ul (0.83-4.51); Lymphocyte % 23.8 % (19-41); Mean Corpuscular Volume 90.4 fL (80-94); Mean Platelet Vol. 10.3 fl (6.2-12.0); Monocyte# 0.51 X10^3/uL; Monocyte% 8.4 % (0-10); NRBC Flagged by Analyzer 0 % (0-5); Neutrophil # 3.93 X10^3/uL (2.7-7.7); Neutrophil % 65.1 % (47-70); Platelet Count 167 K/mm3 (150-450); RBC Distribution Width CV 12.3 % (11.6-14.6); RBC Distribution Width SD 40.7 fl (35.1-43.9); Red Blood Count 4.49 M/mm3 (4.6-6.2)
[2023-11-21 22:20] LABS: Hemoglobin A1c 5.9 % (3.8-5.6)
[2023-11-21 22:21] LABS: ALB/GLOB Ratio 1.1 RATIO (0.9-2.4); AST(SGOT) 24 U/L (15-37); Alanine Aminotransfer ALT/SGPT 54 U/L (16-61); Albumin, Serum 3.9 g/dL (3.2-5.0); Alkaline Phosphatase 84 U/L (45-117); Anion Gap 4 (5-15); BUN 32 mg/dL (7-18); BUN/Creat Ratio 32.4 RATIO (10-20); Calcium,Total 9.8 mg/dL (8.5-10.1); Chloride 108 mmol/L (98-107); Cholesterol 171 mg/dL (200); Creatinine, Serum 0.99 mg/dL (0.70-1.30); EST Glomerular Filtration Rate 79 mL/min (>60); Est Glom Filt Rate - Afr Amer 96 mL/min (>60); Globulin 3.5 g/dL (2.2-4.2); Glucose 117 mg/dL (74-106); High Density Lipoprotein 36 mg/dL; Potassium 4.4 mmol/L (3.5-5.1); Protein, Total 7.4 g/dL (6.4-8.2); Sodium Level 140 mmol/L (136-145); Triglycerides 204 mg/dL; Very Low Density Lipoprotein 41 mg/dL (5-40)
== END | disposition home or self-care (01) ==
LOC: LABSPEC 21:31
PROVIDERS: PCP Nurse Practitioner; Referring Provider Nurse Practitioner; Visit Provider Nurse Practitioner
DX: E03.9 Hypothyroidism, unspecified (principal); E11.65 Type 2 diabetes mellitus with hyperglycemia; R97.20 Elevated prostate specific antigen [PSA]; E78.5 Hyperlipidemia, unspecified
CPT/HCPCS: 80053; 80061; 83036; 84153; 84443; 85025; G0103

== ENCOUNTER → 2024-03-28 | Outpatient (CLI) | payer MEDICARE, OTHER, SELFPAY ==
[2024-03-28 23:19] LABS: PSA,Total- Diagnostic 7.97 ng/mL (0.0-4.0)
== END | disposition home or self-care (01) ==
PROVIDERS: PCP Nurse Practitioner; Referring Provider Nurse Practitioner; Visit Provider Nurse Practitioner
DX: E03.9 Hypothyroidism, unspecified (principal); R89.7 Abnormal histological findings in specimens from other organs, systems and tissues; R97.20 Elevated prostate specific antigen [PSA]
CPT/HCPCS: 84153; 84443

== ENCOUNTER → 2024-08-21 | Outpatient (CLI) | payer MEDICARE, OTHER, SELFPAY ==
[2024-08-21 23:07] LABS: PSA,Total- Diagnostic 8.56 ng/mL (0.00-4.00)
== END | disposition home or self-care (01) ==
PROVIDERS: PCP Nurse Practitioner; Referring Provider Nurse Practitioner; Visit Provider Nurse Practitioner
DX: E11.65 Type 2 diabetes mellitus with hyperglycemia (principal); R89.7 Abnormal histological findings in specimens from other organs, systems and tissues; R97.20 Elevated prostate specific antigen [PSA]; E03.9 Hypothyroidism, unspecified
CPT/HCPCS: 83036; 84153; 84443

== ENCOUNTER → 2024-11-26 | Outpatient (CLI) | payer MEDICARE, OTHER, SELFPAY ==
[2024-11-26 22:46] LABS: Hematocrit 40.1 % (40-54); Hemoglobin 13.4 g/dL (13.0-16.5); Immature Granulocytes Count 0.030 X10^3/uL (0.0-0.0); Mean Corp Hgb Conc 33.4 g/dL (32-36); Mean Corpuscular Volume 87.9 fL (80-94); Mean Platelet Vol. 10.1 fl (6.2-12.0); NRBC Flagged by Analyzer 0 % (0-5); Platelet Count 171 K/mm3 (150-450); RBC Distribution Width CV 12.2 % (11.6-14.6); RBC Distribution Width SD 39.4 fl (35.1-43.9); Red Blood Count 4.56 M/mm3 (4.6-6.2); White Blood Count 6.6 K/mm3 (4.4-11.0)
[2024-11-26 23:08] LABS: AST(SGOT) 21 U/L (<=37); Alanine Aminotransfer ALT/SGPT 25 U/L (<=46); Albumin, Serum 4.5 g/dL (3.4-4.8); Alkaline Phosphatase 69 U/L (40-129); Anion Gap 11 (5-15); BUN 19 mg/dL (4-19); BUN/Creat Ratio 21.3 RATIO (10-20); Calcium,Total 9.7 mg/dL (7.6-11.0); Carbon Dioxide 26.6 mmol/L (21.0-32.0); Chloride 102 mmol/L (98-108); Cholesterol 217 mg/dL (<=200); Globulin 3.1 g/dL (2.2-4.2); Glucose 104 mg/dL (70-99); Low Density Lipoprotein Calc. 144 mg/dL; PSA,Total - Annual Screen 10.40 ng/mL (0.02-4.00); Potassium 4.4 mmol/L (3.3-5.1); Triglycerides 167 mg/dL; Very Low Density Lipoprotein 33 mg/dL (5-40); cholesterol:hdl ratio screen 5.44
== END | disposition home or self-care (01) ==
PROVIDERS: PCP Nurse Practitioner; Visit Provider Nurse Practitioner
DX: E11.65 Type 2 diabetes mellitus with hyperglycemia (principal); E78.5 Hyperlipidemia, unspecified; R97.20 Elevated prostate specific antigen [PSA]; E03.9 Hypothyroidism, unspecified; Z12.5 Encounter for screening for malignant neoplasm of prostate
CPT/HCPCS: 80053; 80061; 83036; 84153; 84443; 85025; G0103

== ENCOUNTER → 2025-01-01 | Outpatient (CLI) | payer MEDICARE, OTHER, SELFPAY | END | disposition home or self-care (01) | PROVIDERS: PCP Nurse Practitioner; Referring Provider Nurse Practitioner; Visit Provider Nurse Practitioner | DX: E03.9 Hypothyroidism, unspecified (principal) | CPT/HCPCS: 84443 ==

== ENCOUNTER 2025-01-28 21:52 | Outpatient (CLI) | payer MEDICARE, OTHER, SELFPAY ==
--- OUTSIDE RECORDS SUMMARY | 2025-01-28 21:56 | XMS RPT_ITS | CCD ---
Author Organization [facility] Care Team Providers Care Operating Room Rn Name Role Phone Donald COLD STRIP ROLLER.Jerel EID L Primary Care Provide r [place] GUEVARA, Radha Unavailable None, No PCP Unavailable Unavailable Unavailable Unavailable Donald COLD STRIP ROLLER.RAGINI, Jerel L Primary Care Provide r [place] GUEVARA, Radha Unavailable Jerel Bennett Unavailable [phone] Donald COLD STRIP ROLLER.RAGINI Jerel L Primary Care Provide r YUSUF BUSBY Referring Unavailable Bennett, . Jerel L Primary Care Unavailab YUSUF Salazar Attending Unavailable Bennett, . Jerel L Primary Care Unavailab le Bennett, . Jerel L Referring Unavailab YUSUF Salazar Attending Unavailable KEHINDE, YUSUF Referring Unavailable KEHINDE, YUSUF Attending Unavailable KEHINDE, YUSUF Attending Unavailable KEHINDE, YUSUF Attending Unavailable PCP, Pt States None Referring Unavailable Bennett COLD STRIP ROLLER-RAGINI, Jerel L Primary Care Provide r BRAYDON TELLEZ Referring Unavailable BRAYDON TELLEZ Referring Unavailable Bennett COLD STRIP ROLLER.RAGINI Jerel L Primary Care Provide r Iris Nava MD Unavailable Braydon Tellez MD Unavailable Unavailable Donald EID Jerel L Primary Care Provider Donald COLD STRIP ROLLER.RAGINI Jerel L Primary Care Provide r Lopez Hollis MD Unavailable Jerel Bennett CNP Primary Care Provider BENNETT, JEREL L Primary Care Unavailable BENNETT, JERLE L Primary Care Unavailable BRAYDON TELLEZ Attending Unavailable ERIN RIVERA Referring Unavailable BRAYDON TELLEZ Referring Unavailable KORIN NICOLAS Attending Unavailable KORIN NICOLAS Referring Unavailable Bennett COLD STRIP ROLLER-YARD CALLER, Jerel L Primary Care Provide r BENNETT, JEREL L Primary Care Unavailable CEFERINO LOPEZ Attending Unavailable YUSUF BUSBY Referring Unavailable BENNETT, JEREL L Referring Unavailable BENNETT, JEREL L Primary Care Unavailable IRIS NAVA Attending Unavailable BENNETT, JEREL L Primary Care Unavailable SELF, SELF Referring Unavailable IRIS NAVA Attending Unavailable Bennett COLD STRIP ROLLER-YARD CALLER, Jerel L Primary Care Provide r Bennett DESK MAKER-C, Jerel Primary Care Provider [phone] Donald DESK MAKER-C, Jerel Attending Provider Donald DESK MAKER-C, Jerel Referring Provider BRAYDON TELLEZ Attending Unavailable BENNETT, JEREL L Primary Care Unavailable YUSUF DEAN Referring Unavailable BENNETT, JEREL L Primary Care Unavailable Erin Rivera Referring Unavailable BENNETT, JEREL L Primary Care Unavailable BEV GAYTAN Attending Unavailable Erin Rivera Referring Unavailable BENNETT, JEREL L Primary Care Unavailable BRAYDON TELLEZ Referring Unavailable BENNETT, JEREL L Primary Care Unavailable BRAYDON TELLEZ Attending Unavailable BENNETT, JEREL L Primary Care Unavailable ADRYAN ROGEL Attending Unavailable BRAYDON TELLEZ Referring Unavailable BENNETT, JEREL L Primary Care Unavailable BENNETT, JEREL L Primary Care Unavailable [place] COLD STRIP ROLLER - YARD CALLER, Marion Primary Care Provider PALACIOS Attending Unavailable MARION FRITZ Primary Care Unavailable YUSUF BUSBY Referring Unavailable BENNETT, JEREL L Primary Care Unavailable YUSUF BUSBY Attending Unavailable BENNETT, JEREL L Primary Care Unavailable YUSUF BUSBY Attending Unavailable BENNETT, JEREL L Primary Care Unavailable RUSSELL GALE Admitting Unavailable RUSSELL GALE Attending Unavailable BENNETT, JEREL L Primary Care Unavailable YUSUF BUSBY Attending Unavailable BENNETT, JEREL L Primary Care Unavailable KEHINDE, RIKA Attending Unavailable BENNETT, JEREL L Primary Care Unavailable Bennett DESK MAKER, Jerel Primary Care Unavailable Bennett DESK MAKER, Jerel Referring Unavailable Bennett DESK MAKER, Jerel Attending Unavailable Bennett DESK MAKER, Jerel Primary Care Unavailable Bennett DESK MAKER, Jerel Referring Unavailable Bennett DESK MAKER, Jerel Attending Unavailable Bennett DESK MAKER, Jerel Attending Unavailable Bennett DESK MAKER, Jerel Primary Care Unavailable Allergies Allergy Classification Reported Allergen(s) Allergy Type Date of Onset Reaction(s) Facility Acetaminophen / HYDROcodone (2 sources) Acetaminophen / HYDROcodone Drug Allergy 1 Other: See Comments [facility] Acetaminophen / oxyCODONE (2 sources) Acetaminophen / oxyCODONE Drug Allergy 1 Intolerance [facility] Opioid Agonists (2 sources) traMADol Drug Allergy 1 Intolerance [facility] (15 sources) HYDROcodone; Translations: [HYDROCODONE] Drug Allergy 8 Anxiety, Rash, Unknown [facility] (5 sources) oxyCODONE Drug Allergy 9 rash [facility] (17 sources) traMADol; Translations: [TRAMADOL] Drug Allergy 1 Rash, Dizzy/Vertigo, Anxiety, Dizziness or Vertigo [facility] (20 sources) Acetaminophen / HYDROcodone; Translations: [HYDROCODONE-ACET AMINOPHEN] Drug Allergy 1 Other: See Comments, Unknown, Hives, Rash [facility] (20 sources) Acetaminophen / oxyCODONE; Translations: [Percocet TABS] Drug Allergy 1 Intolerance, Unknown, Rash, Anxiety, Dizziness or Vertigo [facility] (20 sources) traMADol; Translations: [TRAMADOL HCL] Drug Allergy 1 Intolerance, Unknown [facility] (2 sources) Acetaminophen / HYDROcodone; Translations: [Vicodin TABS] Drug Allergy NQ-Iklgtzl-Ug rma 411 DO Work Phone: (2 sources) Acetaminophen / traMADol; Translations: [traMADol-Acetami nophen TABS] Drug Allergy JK-Wdhzgmr-Qk rma 411 DO Work Phone: (3 sources) guaiFENesin / HYDROcodone Drug Allergy 4 Dizzy/Vertigo [facility] Work Phone: (3 sources) Kdc:Ci Pigment Blue 63+Acetaminophen+ Oxycodone Propensity to adverse reactions to drug 4 Dizzy/Vertigo [facility] (1 source) HYDROcodone Drug Allergy 9 [facility] (1 source) oxyCODONE Drug Allergy 9 [facility] (1 source) traMADol Drug Allergy 9 [facility] Rep[facility] Medications Current Medications Medication Drug Class(es) Dates Sig (Normalized) Sig (Original) Apple Cider Vinegar (20 sources) APPLE CIDER VINE GAR ORAL Take by mouth. Active APPLE CIDER VINE GAR ORAL Take by mouth. 0 Active B Tnvguus-Trnxlq-BW (SUPER B -COMPLEX) CAPS (1 source) B Complex-Biotin -FA (SUPER B-COMPLEX) CAPS Take by mouth Active Barberry-Oreg Grape-Goldense al (BERBERINE COMPLEX) 200-200-50 MG CAPS (1 source) Barberry-Oreg Gr ape-Goldenseal (BERBERINE COMPLEX) 200-200-50 MG CAPS Take by mouth Active BLUEBERRY (20 sources) BLUEBERRY Active BLUEBERRY C/sourcherry/celery/grape se ed (TART ACOSTA ORAL) (20 sources) C/sourcherry/vin marcin/grape seed (TART ACOSTA ORAL) Take by mouth. Active C/sourcherry/vin marcin/grape seed (TART ACOSTA ORAL) Take by mouth. 0 Active calcium chloride 0.0014 meq/ml / potassium chloride 0.004 meq/ml / sodium chloride 0.103 meq/ml / sodium lactate 0.028 meq/ml injectable solution (3 sources) Start: 11-14-2023 take 100 mL intravenously every hour 100 mL/hr, intravenous, Continuous, Starting on Mon11/14/23 at 0930, Recovery (only) Start: 07-24-2023 End: 07-25-2023 lactated ringers iv infusion cholecalciferol, vitD3,/vit K2 (VITAMIN D3-VITAMIN K2 ORAL) (20 sources) cholecalciferol, vitD3,/vit K2 (VITAMIN D3-VITAMIN K2 ORAL) Take by mouth. Active cholecalciferol, vitD3,/vit K2 (VITAMIN D3-VITAMIN K2 ORAL) Take by mouth. 0 Active cinnamon bark 500 mg oral capsule (5 sources) Start: 11-29-2017 Cinnamon Bark (Cinnamon) 500 mg capsule Active mg PO 0 November 29, 2017 12:00am diazePAM 5 mg oral tablet (3 sources) Benzodiazepine Start: 09-05-2024 diazePAM (Valium) 5 mg tablet Indications: Prostate CA (Multi) Take 1 tablet (5 mg) by mouth 1 time if needed for anxiety for up to 1 dose. 30 mins prior to MRI 1 tablet 09/05/2024 Active docosahexaenoic acid/epa (FISH OIL ORAL) (6 sources) docosahexaenoic acid/epa (FISH OIL ORAL) Take by mouth. Active enteric contrast (will be provided with radiology test) (1 source) Start: 09-06-2024 End: 09-07-2024 enteric contrast (will be provided with radiology test) For CT CHESTABD/PEL W IVCON Routine order Administer, As Directed One Time Only, via Oral, Rectal, both Oral and Rectal, Enteric Tube, Stoma or Indwelling Catheter, Enteric Contrast as designated per enteric contrast guidelines 1 each 09/06/2024 09/07/2024 Active fluticasone propionate 0.05 mg/actuat metered dose nasal spray (5 sources) Corticosteroid Start: 03-12-2024 take 2 spray(s) nasal route twice daily fluticasone (FLONASE) 50 MCG/ACT nasal spray 2 sprays by Nasal route 2 times daily To each nostril 03/12/2024 Active Start: 04-23-2012 take 2 spray(s) nasa l route once daily at bedtime fluticasone 50 mcg/actuation nasal spray Indications: Allergic rhinitis Use 2 Sprays in each nostril daily at bedtime. 1 Bottle 12 04/23/2012 Active Comment on above: Use 2 Sprays in each nostril daily at bedtime. 0.5 ml HYDROmorphone hydrochloride 1 mg/ml prefilled syringe (2 sources) Opioid Agonist Start: 11-14-2023 0.5 mg, intravenous, Every 5 min PRN, pain severe (7-10), first line, Starting on Mon11/14/23 at 0902, Recovery (only), Max total of 4 mg regardless of dose. Start: 11-14-2023 0.2 mg, intrav enous, Every 5 min PRN, pain moderate (4-6), first line, Starting on Mon11/14/23 at 0902, Recovery (only), Max total of 4 mg regardless of dose. iv contrast (will be provided with radiology test) (1 source) Start: 09-06-2024 End: 09-07-2024 iv contrast (will be provided with radiology test) CT Chest ABD/PEL-Inject, intravenously, once for 1 dose.No IV access, insert saline lock prior to the beginning of sedation, infusion, injection of imaging exam. Discontinue saline lock post exam. If Pt. has a central line or IVAD, may access for administration according to line specific nursing protocol. Once exam is complete flush line and de-access according to line specific nursing protocol in the CT contrast administration guidelines link. 1 each 09/06/2024 09/07/2024 Active 1 ml ketorolac tromethamine 15 mg/ml cartridge (2 sources) Nonsteroidal Anti-inflammatory Drug, Cyclooxygenase Inhibitor Start: 09-16-2024 15 mg, IntraVENous, ONCE, 1 dose, On Mon09/16/24 at 2130, Do not administer for more than 5 days. Start: 09-16-2024 take 1 tablet by catrachito th every six hours as needed for pain ketorolac (TORADOL) 10 MG tablet Take 1 tablet by mouth every 6 hours as needed for Pain 20 tablet 09/16/2024 Active levothyroxine sodium 0.05 mg oral tablet (20 sources) l-Thyroxine Start: 11-23-2021 End: 11-27-2023 take 1 tablet by mouth once daily levothyroxine (SYNTHROID) 50 MCG tablet Take 1 tablet by mouth Daily 04/01/2023 Active Comment on above: Take 50 mcg by mouth once daily. lidocaine 0.05 mg/mg medicated patch (1 source) Antiarrhythmic, Amide Local Anesthetic Start: 09-16-2024 apply 1 dose transdermal route once daily lidocaine (LIDODERM) 5 % Place 1 patch onto the skin daily 12 hours on, 12 hours off. 30 patch 09/16/2024 Active LORazepam 0.5 mg oral tablet (5 sources) Benzodiazepine Start: 03-29-2023 End: 03-30-2023 LORazepam (ATIVAN) 0.5 mg Indications: Anxiety Take 1 tablet by mouth as needed (You may take one tablet 60-90 minutes before the PET scan, you may repeat this dose 15-30 minutes prior to the scan if you are still experiencing anxiety with the PET scan. Please take with water only.) for up to 2 doses. Do not start before March 29, 2023. 2 tablet 0 03/29/2023 03/30/2023 Active Start: 04-19-2016 LORazepam (ATI VAN) 0.5 mg tab Comment on above: Take 1 tablet by catrachito th as needed (You may take one tablet 60- 90 minutes before the PET scan, you may repeat this dose 15-30 minutes prior to the scan if you are still experiencing anxiety with the PET scan. Please take with water only.) for up to 2 doses. Do not start before March 29, 2023. Magnesium (1 source) Magnesium 400 MG TABS Take by mouth Active multivit, calcium and minerals-vitamin D3-herbal#181 1,000 unit tablet (4 sources) Start: 11-29-2017 take 1 tablet by mouth once daily multivit, calcium and minerals-vitamin D3-herbal#181 1,000 unit tablet Active UNIT PO DAILY November 28, 2017 11:00pm Start: 11-29-2017 take 1 tablet by catrachito th once daily multivit, calcium and minerals-vitamin D3-herbal#181 1,000 unit tablet Active UNIT PO DAILY November 29, 2017 12:00am Multivit,Ca,Nji-W4-Okihuz #1 81 1,000 unit tablet (1 source) Start: 11-29-2017 Multivit,Ca,Mi n-D3-Herbal #181 1,000 unit tablet Active U PO DAILY 0 November 29, 2017 12:00am OTC NUTRITIONAL SUPPLEMENT (20 sources) OTC NUTRITIONAL SUPPLEMENT once daily. QC Turmeric Apolic Acid Bererdine with Cylon Cinnamon Zinc MCT Oil Active OTC NUTRITIONAL SUPPLEMENT once daily. QC Turmeric Apolic Acid Bererdine with Cylon Cinnamon Zinc MCT Oil 0 Active Comment on above: once daily. QC Turme paulette Apolic Acid Bererdine with Cylon Cinnamon Zinc MCT Oil oxyCODONE hydrochloride 5 mg oral tablet (2 sources) Opioid Agonist Start: 024 take 1 tablet by mouth every four hours as needed 5 mg, oral, Every 4 hours PRN, pain severe (7-10), second line, Starting on Mon11/14/23 at 0902, Recovery (only), When able to take oral medications., If ordered PRN for pain, nurse is permitted to administer this medication for higher pain scores based on patient preference? Yes oxygen (O2) therapy (1 source) Start: 024 inhalation, Continuous PRN - O2/gases, other, Starting on Mon11/14/23 at 09, Recovery (only), Device: Nasal Cannula, Rate in liters per minute: 2 LPM, Keep O2 Sat Above: 92% polyethylene glycol 3350 826842 mg / potassium chloride 2970 mg / sodium bicarbonate 6740 mg / sodium chloride 5860 mg / sodium sulfate 43910 mg powder for oral solution (1 source) Osmotic Laxative Start: End: peg 3350-Electrolytes (GOLYTELY) 236-22.74-6.74 -5.86 gram suspension Indications: Colon cancer screening Take 4,000 mL by mouth one time only for 1 dose. Refer to printed prep instructions from your provider. 4000 mL 0 12/08/2022 12/08/2022 Active Comment on above: Take 4,000 mL by catrachito one time only for 1 dose. Refer to printed prep instructions from your provider. promethazine (Phenergan) 6.25 mg in sodium chloride 0.9% 50 mL IV (1 source) Start: 6.25 mg, intravenous, Administer over 15 Minutes, Once as needed, Nausea/vomiting, second line, Starting on Mon11/14/23 at 0902, For 1 dose, Recovery (only) sildenafil 100 mg oral tablet (12 sources) Phosphodiesterase 5 Inhibitor Start: take 1 tablet by mouth once daily sildenafil (Viagra) 100 mg tablet Take 1 tablet (100 mg) by mouth once daily. 1 HOUR BEFORE NEEDED 01/18/2022 Active Turmeric extract (7 sources) turmeric (QC TUMERIC COMPLEX) 500 MG CAPS Take by mouth Active TURMERIC ORAL Ta ke by mouth. Active VITAMIN B COMPLEX ORAL (20 sources) VITAMIN B COMPLE X ORAL Take by mouth. Active VITAMIN B COMPLE X ORAL Take by mouth. 0 Active vitamin e 450 mg oral capsule (7 sources) take 1 capsule by mo [facility] once daily vitamin E 450 mg (1000 unit) capsule Take 100 Units by mouth once daily. Active zinc sulfate 66 mg oral tablet (1 source) Zinc Sulfate 66 MG TABS Take by mouth Active Completed/Discontinued Medications Medication Drug Class(es) Dates Sig (Normalized) Sig (Original) liana green (5 sources) Start: 09-11-2019 End: 08-22-2023 liana green Discontinued PO 0 September 11, 2019 12:00am August 22, 2023 3:34pm Start: 09-11-2019 liana green Act jovan PO September 10, 2019 11:00pm Start: 09-11-2019 liana green Act jovan PO September 11, 2019 12:00am amoxicillin 875 mg / clavulanate 125 mg oral tablet (5 sources) Penicillin-class Antibacterial Start: 11-14-2018 End: 09-11-2019 Amoxicillin-Pot Clavulanate 875-125 mg tablet Discontinued 1 {tbl} PO TWICE A DAY November 14, 2018 12:00am September 11, 2019 3:27pm Start: 11-14-2018 End: 09-11-2019 take 1 tablet by mouth twice daily Amoxicillin-Pot Clavulanate Discontinued 1 TABLET PO TWICE A DAY November 13, 2018 11:00pm September 11, 2019 2:27pm ascorbic acid 500 mg oral tablet (20 sources) Vitamin C Start: 10-30-2017 End: 11-29-2017 take 1 tablet by mouth once daily Ascorbic Acid (Vitamin C) 500 mg tablet Discontinued 500 mg PO DAILY October 30, 2017 12:00am November 29, 2017 3:27pm take 1 tablet by [facility] once daily ascorbic acid (Vitamin C) 1,000 mg tablet Take 1 tablet (1,000 mg) by mouth once daily. Active Bioflavonoid Pro ducts (VITAMIN C) CHEW Take by mouth Active ascorbic acid (V ITAMIN C ORAL) Take by mouth. Active End: 06-13-2023 Ascorbic Acid (STRAWBERRY C) 500 mg chew Take by mouth. 0 06/13/2023 Discontinued ascorbic acid (V ITAMIN C ORAL) Take by mouth. 0 Active Comment on above: Take by mouth. aspirin 81 mg delayed release oral tablet (4 sources) Platelet Aggregation Inhibitor, Nonsteroidal Anti-inflammatory Drug Start: 05-27-20 15 take 1 tablet by mouth once daily aspirin, enteric coated (ECOTRIN LOW STRENGTH) 81 mg EC tablet Indications: Newly diagnosed diabetes (HCC) Take 1 tablet by mouth once daily. 0 07/16/2014 Active Comment on above: Take 1 tablet by [facility] once daily. atorvastatin 40 mg oral tablet (20 sources) HMG-CoA Reductase Inhibitor Start: 07-17-19 End: 11-17-19 take 1 tablet by mouth once daily Atorvastatin 40 mg tablet Discontinued 40 mg PO DAILY 90 0 September 20, 2019 12:00am November 16, 2021 3:34pm Comment on above: Take 1 tablet by catrachito once daily. azithromycin 250 mg oral tablet (1 source) Macrolide Antimicrobial Start: 03-28-19 End: 04-02-19 take 2 tablets by mouth once daily, then take 1 tablet by mouth once daily at mealtime Azithromycin 250 mg tablet Discontinued 250 mg PO daily 6 5 0 March 28, 2024 1:00am April 01, 2024 1:00am April 02, 2024 1:09am 2 po qd for 1 day then 1 po qd for 4 days with food or after eating bismuth subsalicylate 262 mg chewable tablet (4 sources) Bismuth Start: 02-24-19 End: 06-13-19 take 1 tablet by mouth four times daily bismuth subsalicylate (PEPTO-BISMOL) 262 mg chewable tablet Indications: Helicobacter pylori infection Take 1 tablet by mouth four times daily for 10 days. 40 tablet 0 02/24/2023 06/13/2023 Discontinued Comment on above: Take 1 tablet by [facility] four times daily for 10 days. Blood Sugar Diagnostic (12 sources) Start: 05-12-19 End: 11-17-19 Blood Sugar Diagnostic Discontinued 0 .ROUTE .MEDSUPPLY 180 May 11, 2021 7:06pm November 16, 2021 2:51pm 2 x a day for BS checks Start: 05-11-2021 End: 11-16-2021 Blood Sugar Diagnostic Disco ntinued 0 .ROUTE .MEDSUPPLY 180 May 11, 2021 8:06pm November 16, 2021 3:51pm 2 x a day for BS checks Start: 11-06-2020 End: 05-11-2021 Blood Sugar Diagnostic Disco ntinued 0 .ROUTE .MEDSUPPLY 180 November 06, 2020 4:44pm May 11, 2021 7:06pm 2 x a day for BS checks Start: 11-06-2020 End: 05-11-2021 Blood Sugar Diagnostic Disco ntinued 0 .ROUTE .MEDSUPPLY 180 November 06, 2020 5:44pm May 11, 2021 8:06pm 2 x a day for BS checks Start: 10-30-2017 End: 11-16-2021 Blood Sugar Diagnostic Disco ntinued 0 .ROUTE .MEDSUPPLY October 29, 2017 11:00pm November 16, 2021 2:50pm As directed Start: 10-30-2017 End: 11-16-2021 Blood Sugar Diagnostic Disco ntinued 0 .ROUTE .MEDSUPPLY October 30, 2017 12:00am November 16, 2021 3:50pm As directed Blood-Glucose Meter misc (11 sources) Start: 07-16-2014 End: 06-13-2023 Blood-Glucose Meter misc Ind ications: Newly diagnosed diabetes (HCC) 1 Each once daily. 1 Each 0 07/16/2014 06/13/2023 Discontinued Start: 07-16-2014 Blood-Glucose Meter misc Indications: Newly diagnosed diabetes (HCC) 1 Each once daily. 1 Each 0 07/16/2014 Active Comment on above: 1 Each once daily. cefTRIAXone 1000 mg injection (2 sources) Cephalosporin Antibacterial Start: 10-18-2023 End: 10-18-2023 cefTRIAXone (Rocephin) vial 1 g Start: 10-18-2023 End: 10-18-2023 1 g, intramuscular, Once, On Mon10/18/23 at 1145, For 1 dose, For IV use, Suspected Indication (Select all that apply): Medical Prophylaxis, Indications: Medical Prophylaxis cefuroxime 500 mg oral tablet (5 sources) Cephalosporin Antibacterial Start: 11-29-2017 End: 12-09-2017 take 1 tablet by mouth every twelve hours Cefuroxime Axetil 500 mg tablet Discontinued 500 mg PO Q12H November 29, 2017 12:00am December 08, 2017 12:00am December 09, 2017 12:09am cholecalciferol, vitamin D3, (VITAMIN D3 ORAL) (7 sources) End: 06-13-2023 take 2000 [IU] by mouth once daily cholecalciferol, vitamin D3, (VITAMIN D3 ORAL) Take 2,000 Units by mouth once daily. 0 06/13/2023 Discontinued take 2000 [IU] by mouth once shashank ly cholecalciferol, vitamin D3, (VITAMIN D3 ORAL) Take 2,000 Units by mouth once daily. 0 Active Comment on above: Take 2,000 Units by mouth once daily. ciprofloxacin 500 mg oral tablet (9 sources) Quinolone Antimicrobial Start: 11-24-19 End: 01-12-20 take 1 tablet by mouth twice daily Ciprofloxacin Hcl (Cipro) 500 mg tablet Discontinued 500 mg PO TWICE A DAY 60 0 November 23, 2021 12:00am January 11, 2022 5:04pm Start: 11-03-2020 End: 11-24-2020 take 1 tablet by mouth twice daily Ciprofloxacin Hcl 500 mg tablet Discontinued 500 mg PO TWICE A DAY 42 21 0 November 03, 2020 12:00am November 23, 2020 12:00am November 24, 2020 12:01am clarithromycin 500 mg oral tablet (5 sources) Macrolide Antimicrobial Start: 01-01-2018 End: 07-31-2018 take 1 tablet by mouth twice daily Clarithromycin 500 mg tablet Discontinued 500 mg PO TWICE A DAY 20 0 January 01, 2018 1:00am July 31, 2018 10:33am gabapentin 100 mg oral capsule (5 sources) Anti-epileptic Agent Start: 11-12-2018 End: 09-11-2019 take 2 capsules by mouth three times daily Gabapentin 100 mg capsule Discontinued 200 mg PO THREE TIMES A DAY 180 0 November 12, 2018 12:00am September 11, 2019 3:27pm Start: 11-12-2018 End: 09-11-2019 take 200 mg by mouth three times daily Gabapentin Discontinued 200 MG PO THREE TIMES A DAY 180 November 11, 2018 11:00pm September 11, 2019 2:27pm gadoterate meglumine (Dotarem) 0.5 mmol/mL contrast injection 13.5 mL (1 source) Start: 10-23-2024 End: 10-23-2024 13.5 mL (rounded from 13.6 mL = 0.2 mL/kg 68 kg Order-specific weight), intravenous, Once in imaging, Starting on Mon10/23/24 at 0858, For 1 dose, Administer undiluted as rapid I.V. bolus injection ibuprofen 600 mg oral tablet (8 sources) Nonsteroidal Anti-inflammatory Drug Start: 12-28-2015 ibuprofen (MOTRIN ) 600 mg tablet Start: 09-16-2014 take 1 tablet by catrachito every eight hours as needed for pain ibuprofen (MOTRIN) 800 mg tablet Indications: Migraine with visual aura Take 1 tablet by mouth every 8 hours as needed for Pain. 90 tablet 3 09/16/2014 Active Comment on above: Take 1 tablet by catrachtio every 8 hours as needed for Pain. iopamidol (ISOVUE-370) 76 % injection 75 mL (1 source) Start: 025 End: take 1 dose intravenously once 75 mL, IntraVENous, IMG ONCE PRN, 1 dose, Starting on Mon09/16/24 at 2114, Until Mon09/16/24 at 2116, Other lisinopril 5 mg oral tablet (20 sources) Angiotensin Converting Enzyme Inhibitor Start: 015 End: take 1 tablet by mouth once daily Lisinopril 5 mg tablet Discontinued 5 mg PO DAILY 90 September 11, 2019 3:29pm November 16, 2021 3:34pm Comment on above: Take 1 tablet by catrachito once daily. magnesium oxide 400 mg oral capsule (5 sources) Start: 018 End: take 1 capsule by mouth once daily Magnesium Oxide 400 mg capsule Discontinued 400 mg PO DAILY November 29, 2017 12:00am July 31, 2018 10:33am metFORMIN hydrochloride 500 mg oral tablet (20 sources) Biguanide Start: 017 End: take 1 tablet by mouth twice daily Metformin 500 mg tablet Discontinued 500 mg PO TWICE A DAY 180 November 05, 2020 12:27pm November 16, 2021 3:35pm Start: 07-16-2014 End: 06-13-2023 take 1 tablet by mouth once daily Metformin 500 mg tablet Discontinued 500 mg PO DAILY 90 November 16, 2021 3:48pm November 14, 2022 4:42pm Comment on above: Take 1 tablet by catrachito daily with breakfast. multivit with iron,hematinic (SUPER B-COMPLEX ORAL) (7 sources) End: 06-13-2023 multivit with iron,hematinic (SUPER B-COMPLEX ORAL) Take by mouth. 0 06/13/2023 Discontinued multivit with ir on,hematinic (SUPER B-COMPLEX ORAL) Take by mouth. 0 Active Comment on above: Take by mouth. 2 ml ondansetron 2 mg/ml injection (2 sources) Serotonin-3 Receptor Antagonist Start: 09-16-2024 End: 09-16-2024 4 mg, IntraVENous, ONCE, 1 dose, On Mon09/16/24 at 2130 Start: 11-14-2023 4 mg, intraven ous, Once as needed, nausea/vomiting, first line, Starting on Mon11/14/23 at 0902, For 1 dose, Recovery (only), When administering via IV Push, administer over 3-5 minutes. pantoprazole 40 mg delayed release oral tablet (8 sources) Proton Pump Inhibitor Start: 02-24-2023 End: 06-13-2023 take 1 tablet by mouth twice daily pantoprazole DR (PROTONIX) 40 mg tablet Take 1 tablet by mouth two times a day for 14 days. 28 tablet 0 03/07/2023 06/13/2023 Discontinued Comment on above: Take 1 tablet by catrachito th two times a day for 10 days. Take 1 tablet by catrachito th two times a day for 14 days. predniSONE 10 mg oral tablet (5 sources) Start: 05-19-2018 End: 05-27-2018 take 2 tablets by mouth twice daily as needed, then take 1 tablet by mouth twice daily as needed, then take 0.5 tablet by mouth once daily as needed Prednisone 10 mg tablet Discontinued 20 mg PO TWICE A DAY as needed for numbness 30 4 May 19, 2018 12:00am May 26, 2018 12:00am May 27, 2018 12:07am 2 po bid 4D,1 po bid for 4 D, 1 po qd for 4D 1/2 po qd for2 D Start: 05-19-2018 End: 05-27-2018 Prednisone Discontinued 20 M G PO TWICE A DAY 30 4 May 18, 2018 11:00pm May 26, 2018 11:07pm 2 po bid 4D,1 po bid for 4 D, 1 po qd for 4D 1/2 po qd for2 D tobramycin 3 mg/ml ophthalmic solution (4 sources) Aminoglycoside Antibacterial Start: 04-20-2016 tobramycin (TOBREX) 0.3 % ophthalmic solution TUMERIC W/50MG RICARDO (5 sources) Start: 11-29-2017 End: 07-31-2018 TUMERIC W/50MG RICARDO Discontinued PO 0 November 29, 2017 12:00am July 31, 2018 10:33am Start: 11-29-2017 End: 07-31-2018 TUMERIC W/50MG RICARDO Discon tinued PO November 28, 2017 11:00pm July 31, 2018 9:33am Start: 11-29-2017 End: 07-31-2018 TUMERIC W/50MG RICARDO Discon tinued PO November 29, 2017 12:00am July 31, 2018 10:33am VITAMIN K2 ORAL (7 sources) End: 06-13-2023 VITAMIN K2 ORAL Take by mout h. 0 06/13/2023 Discontinued VITAMIN K2 ORAL Take by mouth. 0 Active Comment on above: Take by mouth. 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-12-2024 Chronic Cardiac dysrhythmias (1 source) Atrial fibrillation; Translations: [Unspecified atrial fibrillation] 06-13-2023 Chronic Coagulation and hemorrhagic disorders (20 sources) Platelet count below reference range; Translations: [Thrombocytopenia, unspecified] Onset: 4 04-06-2023 Chronic Diabetes mellitus with complications (20 sources) Type II diabetes mellitus uncontrolled; Translations: [Uncontrolled type 2 diabetes mellitus] Onset: 2 Chronic Diabetes mellitus without complication (14 sources) Latent autoimmune diabetes mellitus in adult; Translations: [Other specified diabetes mellitus without complications] Onset: 3 Resolved: 5 12-08-2022 Chronic Disorders of lipid metabolism (20 sources) Hyperlipidemia; Translations: [Hyperlipidemia, unspecified] Onset: 2 02-09-2012 Chronic Esophageal disorders (1 source) Gastroesophageal reflux disease; Translations: [Gastro-esophageal reflux disease without esophagitis] 01-02-2023 Chronic Essential hypertension (20 sources) Hypertensive disorder; Translations: [Essential (primary) hypertension] Onset: 1 10-18-2010 Chronic Genitourinary symptoms and ill-defined conditions (5 sources) Increased frequency of urination; Translations: [Frequency of micturition] 10-30-2020 Episodic Headache; including migraine (20 sources) Migraine with aura; Translations: [Migraine with aura, not intractable, without status migrainosus] Onset: 3 05-16-2012 Chronic Heart valve disorders (1 source) Heart murmur; Translations: [Cardiac murmur, unspecified] 03-31-2023 Episodic Intestinal infection (9 sources) Infection caused by Helicobacter pylori; Translations: [Other specified bacterial intestinal infections] Onset: 5 04-06-2023 Episodic Mycoses (20 sources) Onychomycosis; Translations: [Tinea unguium] Onset: 2 Episodic Neoplasms of unspecified nature or uncertain behavior (5 sources) Monoclonal gammopathy of uncertain significance; Translations: [Monoclonal gammopathy] Onset: 5 07-06-2023 Chronic Non-Hodgkin`s lymphoma (20 sources) B-cell lymphoma (clinical); Translations: [Unspecified B-cell lymphoma, extranodal and solid organ sites] Onset: 4 03-29-2023 Chronic Osteoarthritis (19 sources) 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; Translations: [Primary osteoarthritis, right ankle and foot] Onset: 4 09-08-2023 Chronic Other acquired deformities (17 sources) Equinus contracture of the ankle; Translations: [Contracture, unspecified ankle] Onset: 4 12-15-2023 Chronic Other connective tissue disease (20 sources) Pain in right foot; Translations: [Pain in right foot] Onset: 2 Episodic Other connective tissue disease (20 sources) Pain of toes of bilateral feet; Translations: [Pain in right toe(s)] Onset: 4 08-01-2023 Episodic Other ear and sense organ disorders (5 sources) Impacted cerumen; Translations: [Impacted cerumen, bilateral] 11-29-2017 Episodic Other ear and sense organ disorders (1 source) Hearing loss of right ear; Translations: [Impacted cerumen, right ear] 06-03-2024 Episodic Other endocrine disorders (20 sources) Male hypogonadism; Translations: [Testicular hypofunction] Onset: 2 10-20-2011 Chronic Other gastrointestinal disorders (3 sources) Dysphagia; Translations: [Dysphagia, unspecified] 11-15-2022 Episodic Other hereditary and degenerative nervous system conditions (3 sources) Restless legs; Translations: [Restless legs syndrome] 01-06-2023 Chronic Other infections; including parasitic (1 source) History of Helicobacter pylori infection; Translations: [Personal history of other infectious and parasitic diseases] 02-26-2024 Episodic Other lower respiratory disease (5 sources) Cough; Translations: [Cough] 01-01-2018 Episodic Other male genital disorders (16 sources) Male erectile dysfunction, unspecified; Translations: [Erectile dysfunction] Onset: 3 12-08-2022 Chronic Other nervous system disorders (20 sources) Mortons neuroma of right foot; Translations: [Lesion of plantar nerve, right lower limb] Onset: 2 Chronic Other nervous system disorders (10 sources) Numbness of upper limb; Translations: [Anesthesia of skin] 11-12-2018 Episodic Other nutritional; endocrine; and metabolic disorders (20 sources) Metabolic syndrome X; Translations: [Metabolic syndrome] Onset: 2 02-09-2012 Chronic Other nutritional; endocrine; and metabolic disorders (3 sources) Abnormal weight loss; Translations: [Abnormal weight loss] 11-15-2022 Episodic Other skin disorders (20 sources) Asteatosis cutis; Translations: [Xerosis cutis] Onset: 2 Episodic Other upper respiratory disease (20 sources) Allergic rhinitis; Translations: [Allergic rhinitis, unspecified] Onset: 1 10-18-2010 Chronic Other upper respiratory disease (1 source) Feeling of lump in throat; Translations: [Globus sensation] 12-08-2022 Episodic Other upper respiratory infections (5 sources) Maxillary sinusitis; Translations: [Chronic maxillary sinusitis] 11-14-2018 Chronic Naomi-; endo-; and myocarditis; cardiomyopathy (except that caused by tuberculosis or sexually transmitted disease) (1 source) Heart valve disorder; Translations: [Endocarditis, valve unspecified] 03-31-2023 Chronic Residual codes; unclassified (20 sources) Obstructive sleep apnea syndrome; Translations: [Obstructive sleep apnea (adult) (pediatric)] Onset: 2 02-07-2012 Chronic Residual codes; unclassified (1 source) Pain; Translations: [Pain, unspecified] 10-03-2023 Episodic Spondylosis; intervertebral disc disorders; other back problems (6 sources) Neck pain; Translations: [Cervicalgia] 05-19-2018 Episodic Superficial injury; contusion (1 source) Subungual hematoma of great toe of left foot; Translations: [Contusion of left great toe with damage to nail, initial encounter] 02-23-2024 Episodic Thyroid disorders (20 sources) Hypothyroidism; Translations: [Hypothyroidism, unspecified] Onset: 3 12-08-2022 Chronic Unclassified (1 source) Radiology NM Onset: 4 Unclassified (1 source) MALT lymphoma (HCC); Translations: [MALT lymphoma (HCC)] Onset: 4 Unclassified (1 source) MALT (mucosa associated lymphoid tissue); Translations: [MALT (mucosa associated lymphoid tissue)] Onset: 4 Unclassified (1 source) MALT lymphoma; Translations: [MALT lymphoma] Onset: 4 Unclassified (1 source) Low back pain, unspecified; Translations: [Low back pain, unspecified] Onset: 5 Past or Other Problems Problem Classification Problem Date Documented Date Episodic/Chronic Calculus of urinary tract (20 sources) Kidney stone; Translations: [Calculus of kidney] Onset: 1 10-18-2010 Episodic Diabetes mellitus without complication (20 sources) Impaired fasting glycemia; Translations: [Impaired fasting glucose] Onset: 2 02-09-2012 Episodic Malaise and fatigue (20 sources) Fatigue; Translations: [Other fatigue] Onset: 2 10-20-2011 Episodic Mood disorders (1 source) Mood disorders Onset: 5 04-08-2024 Other connective tissue disease (20 sources) Capsulitis of metatarsophalangeal joint of right foot; Translations: [Other enthesopathy of right foot and ankle] Onset: 2 Episodic Other injuries and conditions due to external causes (20 sources) Corneal foreign body; Translations: [Foreign body in cornea, unspecified eye, initial encounter] Onset: 7 04-22-2016 Episodic Other screening for suspected conditions (not mental disorders or infectious disease) (20 sources) Raised prostate specific antigen; Translations: [Elevated prostate specific antigen [PSA]] Onset: 2 Resolved: 3 Episodic Comment on above: Wound was unable to differentiate. And the rest were Milford's scores of 6 Residual codes; unclassified (20 sources) Family history of diabetes mellitus; Translations: [Family history of diabetes mellitus] Onset: 1 02-15-2021 Episodic Residual codes; unclassified (20 sources) Family history of prostate cancer; Translations: [Family history of malignant neoplasm of prostate] Onset: 2 10-20-2011 Episodic Residual codes; unclassified (1 source) Pain, unspecified; Translations: [Pain] Onset: 4 Episodic Unclassified (5 sources) FIBULA TIBIA OSTEOTOMY FOR BOW LEGGEDNESS 09-20-2021 Unclassified (5 sources) L KNEE SURERY 09-20-2021 Unclassified (5 sources) LIPSOTRIPSY 200609-20-2021 Unclassified (5 sources) R KNEE RECONSTRUCTION 09-20-2021 Unclassified (5 sources) ekg wnl 09-20-2021 Comment on above: 2013 Unclassified (5 sources) rotator cuff 09-20-2021 Unclassified (5 sources) sleep apnea unable to use machine done by Dr Chris Vega 09-20-2021 Unclassified (5 sources) Onset: 5 Resolved: 5 06-06-2024 Results Test Name Value Interpretation Reference Range Facility CBC W/Diff, Automatedon 10-0 Absolute Lymph 1.42 X10 3/uL Normal 0.83-4.51 [facility] Comment on above: Performed By: #### L [id number], L500.4100, L501.9520, L501.9985, L100.0100, L500.4050 #### [facility] [address] [place], [address] Absolute Neut 4.5 X10 3/uL Normal 2.0-7.7 [facility] Comment on above: Performed By: #### L [id number], L500.4100, L501.9520, L501.9985, L100.0100, L500.4050 #### [facility] [address] [place], [address] Basophils/100 WBC (Bld) 0.5 % Normal 0-1 [facility] Comment on above: Performed By: #### L [id number], L500.4100, [id number], L501.9985, L100.0100, L500.4050 #### [facility] [address] [place], [address] Eosinophils/100 WBC (Bld) 1.1 % Normal 0-5 [facility] Comment on above: Performed By: #### L [id number], L500.4100, [id number], L501.9985, L100.0100, L500.4050 #### [facility] [address] [place], [address] Erythrocyte distribution width (RBC) [Ratio] 12.2 % Normal 11.6-14.6 [facility] Comment on above: Performed By: #### L [id number], L500.4100, L501.9520, L501.9985, L100.0100, L500.4050 #### [facility] [address] [place], [address] Hematocrit (Bld) [Volume fraction] 40.1 % Normal 40-54 [facility] Comment on above: Performed By: #### L [id number], L500.4100, L501.9520, L501.9985, L100.0100, L500.4050 #### [facility] [address] [place], [address] Hemoglobin (Bld) [Mass/Vol] 13.4 g/dL Normal 13.0-16.5 [facility] Comment on above: Performed By: #### L [id number], L500.4100, L501.9520, L501.9985, L100.0100, L500.4050 #### [facility] [address] [place], [address] IG% 0.500 Normal 0.0-0.9 [facility] Comment on above: Result Comment: IG% - Immature Granulocytes (promyelocytes, myelocytes and metamyelocytes) > 1% indicates that a LEFT SHIFT is Present. Performed By: #### L [id number], L500.4100, L501.9520, L501.9985, L100.0100, L500.4050 #### [facility] [address] [place], [address] Lymphocytes/100 WBC (Bld) 21.7 % Normal 19-41 [facility] Comment on above: Performed By: #### L [id number], L500.4100, L501.9520, L501.9985, L100.0100, L500.4050 #### [facility] [address] [place], [address] MCH (RBC) [Entitic mass] 29.4 pg Normal 27.0-32.0 [facility] Comment on above: Performed By: #### L [id number], L500.4100, L501.9520, L501.9985, L100.0100, L500.4050 #### [facility] [address], [address] MCHC (RBC) [Mass/Vol] 33.4 g/dL Normal 32-36 [facility] Comment on above: Performed By: #### L [id number], L500.4100, L501.9520, L501.9985, L100.0100, L500.4050 #### [facility] [address] [place], [address] MCV (RBC) [Entitic vol] 87.9 fL Normal 80-94 [facility] Comment on above: Performed By: #### L [id number], L500.4100, L501.9520, L501.9985, L100.0100, L500.4050 #### [facility] [address] [place], [address] Monocytes/100 WBC (Bld) 7.8 % Normal 0-10 [facility] Comment on above: Performed By: #### L [id number], L500.4100, L501.9520, L501.9985, L100.0100, L500.4050 #### [facility] [address] [place], [address] Neutrophils/100 WBC (Bld) 68.4 % Normal 47-70 [facility] Comment on above: Performed By: #### L [id number], L500.4100, L501.9520, L501.9985, L100.0100, L500.4050 #### [facility] [address] [place], [address] Nucleated RBC (Bld) [#/Vol] 0 10*3/uL Normal 0-5 [facility] Comment on above: Performed By: #### L [id number], L500.4100, L501.9520, L501.9985, L100.0100, L500.4050 #### [facility] [address] [place], [address] Platelet mean volume (Bld) [Entitic vol] 10.1 fL Normal 6.2-12.0 [facility] Comment on above: Performed By: #### L [id number], L500.4100, L501.9520, L501.9985, L100.0100, L500.4050 #### [facility] [address] [place], [address] Platelets (Bld) [#/Vol] 171 10*3/uL Normal 150-450 [facility] Comment on above: Performed By: #### L [id number], L500.4100, L501.9520, L501.9985, L100.0100, L500.4050 #### [facility] [address] [place], [address] RBC (Bld) [#/Vol] 4.56 10*6/uL Low 4.6-6.[address] [facility] Comment on above: Performed By: #### L [id number], L500.4100, L501.9520, L501.9985, L100.0100, L500.4050 #### [facility] [address] [place], [address] RDW SD 39.4 fl Normal 35.1-43.9 [facility] Comment on above: Performed By: #### L [id number], L500.4100, L501.9520, L501.9985, L100.0100, L500.4050 #### [facility] [address] [place], [address] WBC (Bld) [#/Vol] 6.6 10*3/uL Normal 4.4-11.0 [facility] Comment on above: Performed By: #### L [id number], L500.4100, L501.9520, L501.9985, L100.0100, L500.4050 #### [facility] [address] [place], [address] Comprehensive Metabolic Prof ilon 11-26-2024 Albumin [Mass/Vol] 4.5 g/dL Normal 3.4-4.8 [facility] Comment on above: Performed By: #### L [id number], L500.4100, L501.9520, L501.9985, L100.0100, L500.4050 #### [facility] [address] [place], [address] Albumin/Globulin [Mass ratio] 1.4 {ratio} Normal 0.9-2.4 [facility] Comment on above: Performed By: #### L [id number], L500.4100, L501.9520, L501.9985, L100.0100, L500.4050 #### [facility] [address] [place], [address] ALK PHOS 69 U/L Normal 40-129 [facility] Comment on above: Performed By: #### L 501.9910, L500.4100, L501.9520, L501.9985, L100.0100, L500.4050 #### [facility] [address] [place], [address] ALT [Catalytic activity/Vol] 25 U/L Normal <=46 [facility] Comment on above: Performed By: #### L [id number], L500.4100, L501.9520, L501.9985, L100.0100, L500.4050 #### [facility] [address] [place], [address] AST [Catalytic activity/Vol] 21 U/L Normal <=37 [facility] Comment on above: Performed By: #### L 501.9910, L500.4100, L501.9520, L501.9985, L100.0100, L500.4050 #### [facility] [address] [place], [address] Bilirubin [Mass/Vol] 0.48 mg/dL Normal 0.00-1.30 [facility] Comment on above: Performed By: #### L 501.9910, L500.4100, L501.9520, L501.9985, L100.0100, L500.4050 #### [facility] [address] [place], [address] BUN/CRE 21.3 RATIO High 10-20 [facility] Comment on above: Performed By: #### L 501.9910, L500.4100, L501.9520, L501.9985, L100.0100, L500.4050 #### [facility] [address] [place], [address] Calcium [Mass/Vol] 9.7 mg/dL Normal 7.6-11.0 [facility] Comment on above: Performed By: #### L 501.9910, L500.4100, L501.9520, L501.9985, L100.0100, L500.4050 #### [facility] [address] [place], [address] Chloride [Moles/Vol] 102 mmol/L Normal 98-108 [facility] Comment on above: Performed By: #### L 501.9910, L500.4100, L501.9520, L501.9985, L100.0100, L500.4050 #### [facility] [address] [place], [address] CO2 [Moles/Vol] 26.6 mmol/L Normal 21.0-32.0 [facility] Comment on above: Performed By: #### L 501.9910, L500.4100, L501.9520, L501.9985, L100.0100, L500.4050 #### [facility] [address] [place], [address] Creatinine [Mass/Vol] 0.89 mg/dL Normal 0.70-1.20 [facility] Comment on above: Performed By: #### L 501.9910, L500.4100, L501.9520, L501.9985, L100.0100, L500.4050 #### [facility] [address] [place], [address] GAP 11 Normal 5-15 [facility] Comment on above: Performed By: #### L 501.9910, L500.4100, L501.9520, L501.9985, L100.0100, L500.4050 #### [facility] [address] [place], [address] GFR/1.73 sq M.predicted among non-blacks MDRD (S/P/Bld) [Vol rate/Area] 90 mL/min/{1.73_m2} Normal >60 [facility] Comment on above: Result Comment: mL/m in/1.73m2 CKD-EPI Creatinine Equation (2020) Performed By: #### L [id number], L500.4100, L501.9520, L501.9985, L100.0100, L500.4050 #### [facility] [address] [place], [address] Globulin (S) [Mass/Vol] 3.1 g/dL Normal 2.2-4.2 [facility] Comment on above: Performed By: #### L 501.9910, L500.4100, L501.9520, L501.9985, L100.0100, L500.4050 #### [facility] [address] [place], [address] Glucose [Mass/Vol] 104 mg/dL High 70-99 [facility] Comment on above: Performed By: #### L 501.9910, L500.4100, L501.9520, L501.9985, L100.0100, L500.4050 #### [facility] [address] [place], [address] Potassium [Moles/Vol] 4.4 mmol/L Normal 3.3-5.1 [facility] Comment on above: Performed By: #### L 501.9910, L500.4100, L501.9520, L501.9985, L100.0100, L500.4050 #### [facility] [address] [place], [address] Sodium [Moles/Vol] 139 mmol/L Normal 133-145 [facility] Comment on above: Performed By: #### L 501.9910, L500.4100, L501.9520, L501.9985, L100.0100, L500.4050 #### [facility] [address] [place], [address] T PROT 7.5 g/dL Normal 5.9-8.4 [facility] Comment on above: Performed By: #### L 501.9910, L500.4100, L501.9520, L501.9985, L100.0100, L500.4050 #### [facility] [address] [place], [address] Urea nitrogen [Mass/Vol] 19 mg/dL Normal 4-19 [facility] Comment on above: Performed By: #### L 501.9910, L500.4100, L501.9520, L501.9985, L100.0100, L500.4050 #### [facility] [address] [place], [address] Hemoglobin A1con 11-26-2024 HbA1c (Bld) [Mass fraction] 6.1 % High <=5.6 [facility] Comment on above: Result Comment: Norm al < 5.7 % Prediabetic 5.7 - 6.4 % Diabetic >or= 6.5 % Please note range changes. Performed By: #### L 501.9985, L501.9940, L501.9520 #### [facility] [address] [place], [address] Lipid Profileon 11-26-2024 CHOL:HDL 5.44 Normal [facility] Comment on above: Performed By: #### L [id number], L500.4100, L501.9520, L501.9985, L100.0100, L500.4050 #### [facility] [address] [place], [address] Cholesterol [Mass/Vol] 217 mg/dL High <=200 [facility] Comment on above: Result Comment: Chol esterol level, Desirable <200 mg/dL Borderline high cholesterol 200-239 mg/dL High cholesterol >=240 mg/dL Recommendations of the NCEP Adult Treatment Panel for the following risk-cutoff thresholds for the [place] population. Performed By: #### L 501.9910, L500.4100, L501.9520, L501.9985, L100.0100, L500.4050 #### [facility] [address] [place], [address] Cholesterol in HDL [Mass/Vol] 40 mg/dL Normal [facility] Comment on above: Result Comment: Anna onal Cholesterol Education Program (NCEP) guidelines: <40 mg/dL: Low HDL-cholesterol (major risk factor for CHD) >= 60 mg/dL: High HDL-cholesterol (negative risk factor for CHD) HDL-cholesterol is affected by a number of factors, e.g. smoking, exercise, hormones, sex and age. Performed By: #### L [id number], L500.4100, L501.9520, L501.9985, L100.0100, L500.4050 #### [facility] [address] [place], [address] Cholesterol in LDL [Mass/Vol] 144 mg/dL Normal [facility] Comment on above: Result Comment: Bord llqnsz=363-584 mg/dL Higher Oilo=036 mg/dL or greater Friedwald Equation for LDL-C Performed By: #### L 501.9910, L500.4100, L501.9520, L501.9985, L100.0100, L500.4050 #### [facility] [address] [place], [address] Cholesterol in VLDL [Mass/Vol] 33 mg/dL Normal 5-40 [facility] Comment on above: Performed By: #### L 501.9910, L500.4100, L501.9520, L501.9985, L100.0100, L500.4050 #### [facility] [address] [place], [address] Triglyceride [Mass/Vol] 167 mg/dL Normal [facility] Comment on above: Result Comment: The drugs N-Acetylcysteine and Metamizole may falsely depress this assay. Normal range: <150 mg/dL Borderline High: 150-199 mg/dL High: 200-499 mg/dL Very High: >500 mg/dL Performed By: #### L 501.9910, L500.4100, L501.9520, L501.9985, L100.0100, L500.4050 #### [facility] [address] [place], [address] PSA,Total - Annual Screenon 11-26-2024 PSA,TOT SCREEN 10.40 ng/mL High 0.02-4.00 [facility] Comment on above: Result Comment: This test was performed using the [employer] tPSA method. Measured values of a patient??sample can vary depending on the testing procedure used. PSA values determined on patient samples by different testing procedures cannot be used interchangeably. If there is a change in PSA assays while monitoring therapy, sequential testing should be performed to confirm baseline values. Performed By: #### L 501.9910, L500.4100, L501.9520, L501.9985, L100.0100, L500.4050 #### [facility] [address] [place], [address] Thyroid Stim Hormone (TSH)on 11-26-2024 TSH 1.170 uIU/mL Normal 0.300-4.200 [facility] Comment on above: Performed By: #### L 501.9910, L500.4100, L501.9520, L501.9985, L100.0100, L500.4050 #### [facility] [address] [place], [address] MR PROSTATE WITH BESSY BOUNDAR IES IF PIRADS 3 OR ABOVEon 10-23-2024 MR PROSTATE WITH BESSY BOUNDARIES IF PIRADS 3 OR ABOVE Interpreted By: Ravin Devi, and Shahana Melgar STUDY: MR PROSTATE WITH BESSY BOUNDARIES IF PIRADS 3 OR ABOVE; 10/23/2024 10:15 am INDICATION: Signs/Symptoms:Elevated PSA. PSA 8.29 ,R97.20 Elevated prostate specific antigen (PSA) COMPARISON: None. ACCESSION NUMBER(S): [id number] ORDERING CLINICIAN: YUSUF BUSBY TECHNIQUE: Multiplanar MRI of the pelvis was obtained including axial, sagittal and coronal T2 weighted SSFSE, axial and sagittal T2 FSE, axial DWI, pre and post gadolinium dynamic T1 GRE sequences. Multiparametric analysis was performed. 13.5 ML of Dotarem was administered intravenously without immediate complications. FINDINGS: PROSTATE VOLUME: The prostate measures 4.9 x 3.8 x 3.3 cm in [id number], anterior-posterior and craniocaudal dimension. Prostate weight is estimated at 32.2g. PSA density is 0.258 ng/mL/g. PROSTATE PARENCHYMA: There is heterogeneous enlargement of the transition zone, consistent with benign prostatic hyperplasia. The peripheral zone is diffusely heterogenous on T2WI, with bilateral polygonal and wedge-shaped T2-hypointense areas, that show no signs of abnormally restricted diffusion (PI-RADS 2). There is no evidence of clinically significant neoplasm. EXTRACAPSULAR EXTENSION: None. SEMINAL VESICLES: Within normal limits. PELVIC LYMPH NODES: No abnormally enlarged pelvic lymph nodes are identified. PERITONEUM: No free or loculated fluid collections are evident in the pelvis. OTHER ORGANS: Diverticulosis of the sigmoid colon without evidence to suggest acute diverticulitis. There is mild circumferential thickening of the bladder, with prominent trabeculation, likely sequela of chronic outlet obstruction. BONES: No focal lesions are noted in the bone. Exam Quality: Is T2WI weighted imaging of diagnostic quality: Yes. T2WI assessment: Adequate. Is DWI of diagnostic quality: Yes. DWI assessment: Adequate. Is DCE of diagnostic quality: Yes. DCE assessment: Adequate. PI-QUAL score: All sequences are of optimal diagnostic quality Comments: IMPRESSION: 1. There is no evidence of clinically significant neoplasm. 2. BPH changes of the transition zone. Diffuse non nodular hypointensities within the peripheral zone, without evidence of focally restricted diffusion ( PI-RADS 2). PI-RADS 2 - Low (clinically significant cancer is unlikely to be present). I personally reviewed the images/study and I agree with the findings as stated above by resident physician, Dr. Ramón Harkins. MACRO: None Signed by: Ravin Devi 10/24/2024 6:46 PM Dictation workstation: [id number] [facility] CBC W Auto Differential pane l (Bld)on 09-16-2024 Basophils (Bld) [#/Vol] 0 10*3/uL 0.0 - 0.2 K/uL [facility] MCH (RBC) [Entitic mass] 30 pg 27.0 - 31.3 pg [facility] MCHC (RBC) [Mass/Vol] 33.3 % 33.0 - 37.0 % [facility] Segmented neutrophils/100 WBC (Bld) 77.7 % [facility] CBC With Platelet and Differ entialon 09-16-2024 Basophils (Bld) [#/Vol] 0.0 10*3/uL Normal 0.0-0.2 [facility] Comment on above: Performed By: #### C BCWD #### [facility] [address] [facility] [address] Basophils/100 WBC (Bld) 0.3 % Normal [facility] Comment on above: Performed By: #### C BCWD #### [facility] [address] [place] [address] Eosinophils (Bld) [#/Vol] 0.1 10*3/uL Normal 0.0-0.7 [facility] Comment on above: Performed By: #### C BCWD #### [facility] [address] [place] [address] Eosinophils/100 WBC (Bld) 0.6 % Normal [facility] Comment on above: Performed By: #### C BCWD #### [facility] [address] [place] [address] Erythrocyte distribution width (RBC) [Ratio] 12.3 % Normal 11.5-14.5 [facility] Comment on above: Performed By: #### C BCWD #### [facility] [address] [place] [address] Hematocrit (Bld) [Volume fraction] 40.8 % Low 42.0-52.0 [facility] Comment on above: Performed By: #### C BCWD #### [facility] [address] [place] [address] Hemoglobin (Bld) [Mass/Vol] 13.6 g/dL Low 14.0-18.0 [facility] Comment on above: Performed By: #### C BCWD #### [facility] [address] [place] [address] Lymphocytes (Bld) [#/Vol] 1.2 10*3/uL Normal 1.0-4.8 [facility] Comment on above: Performed By: #### C BCWD #### [facility] [address] [place] [address] Lymphocytes/100 WBC (Bld) 12.6 % Normal [facility] Comment on above: Performed By: #### C BCWD #### [facility] [address] [place] [address] MCH (RBC) [Entitic mass] 30.0 pg Normal 27.0-31.3 [facility] Comment on above: Performed By: #### C BCWD #### [facility] [address] [place] [address] MCHC 33.3 % Normal 33.0-37.0 [facility] Comment on above: Performed By: #### C BCWD #### [facility] [address] [place] [address] MCV (RBC) [Entitic vol] 89.9 fL Normal 79.0-92.2 [facility] Comment on above: Performed By: #### C BCWD #### [facility] [address] [place] [address] Monocytes (Bld) [#/Vol] 0.8 10*3/uL Normal 0.2-0.8 [facility] Comment on above: Performed By: #### C BCWD #### [facility] [address] [place] [address] Monocytes/100 WBC (Bld) 8.4 % Normal [facility] Comment on above: Performed By: #### C BCWD #### [facility] [address] [place] [address] Neutrophils (Bld) [#/Vol] 7.5 10*3/uL Critically high 1.4-6.5 [facility] Comment on above: Performed By: #### C BCWD #### [facility] [address] [place] [address] Neutrophils/100 WBC (Bld) 77.7 % Normal [facility] Comment on above: Performed By: #### C BCWD #### [facility] [address] [place] [address] Platelets (Bld) [#/Vol] 166 10*3/uL Normal 130-400 [facility] Comment on above: Performed By: #### C BCWD #### [facility] [address] [place] [address] RBC (Bld) [#/Vol] 4.54 10*6/uL Low 4.70-6.10 [facility] Comment on above: Performed By: #### C BCWD #### [facility] [address] [place] [address] WBC (Bld) [#/Vol] 9.7 10*3/uL Normal 4.8-10.8 [facility] Comment on above: Performed By: #### C BCWD #### [facility] [address] [place] [address] CT ABDOMEN PELVIS W IV CONTR Jimmy 09-16-2024 CT ABDOMEN PELVIS W IV CONTRAST EXAMINATION: CT OF THE ABDOMEN AND PELVIS WITH CONTRAST 09/16/2024 9:16 pm TECHNIQUE: CT of the abdomen and pelvis was performed with the administration of intravenous contrast. Multiplanar reformatted images are provided for review. Automated exposure control, iterative reconstruction, and/or weight based adjustment of the mA/kV was utilized to reduce the radiation dose to as low as reasonably achievable. COMPARISON: None. HISTORY: ORDERING SYSTEM PROVIDED HISTORY: LLQ abd pain, extends into L flank TECHNOLOGIST PROVIDED HISTORY: Additional Contrast?->None Reason for exam:->LLQ abd pain, extends into L flank Decision Support Exception - unselect if not a suspected or confirmed emergency medical condition->Emergency Medical Condition (MA) What reading provider will be dictating this exam?->CRC FINDINGS: Lower Chest: Visualized portion of the lower chest demonstrates no acute abnormality. Organs: The liver, gallbladder, spleen, pancreas, adrenals are within normal limits. Bilateral kidneys are grossly unremarkable. No hydronephrosis. No radiopaque renal stone. GI/Bowel: There is no evidence of bowel obstruction. No evidence of abnormal bowel wall thickening or distension. The appendix is normal. Pelvis: The urinary bladder is mildly distended. The prostate is unremarkable. Peritoneum/Retroperiton eum: No evidence of ascites or free air. No evidence of lymphadenopathy. Aorta is normal in caliber. Bones/Soft Tissues: No acute abnormality of the visualized osseous structures. No focal soft tissue abnormality. IMPRESSION: No acute intra-abdominal or pelvic process. Interpreted by: Rafaela Campuzano MD Signed by: Rafaela Campuzano MD 09/16/24 Final result Normal [facility] CT Abdomen and Pelvis W cont rast Vagras 09-16-2024 No acute intra-abdominal or pelvic process. [facility] RADIOLOGY EXAMINATION: CT OF THE ABDOMEN AND PELVIS WITH CONTRAST 09/16/2024 9:16 pm TECHNIQUE: CT of the abdomen and pelvis was performed with the administration of intravenous contrast. Multiplanar reformatted images are provided for review. Automated exposure control, iterative reconstruction, and/or weight based adjustment of the mA/kV was utilized to reduce the radiation dose to as low as reasonably achievable. COMPARISON: None. HISTORY: ORDERING SYSTEM PROVIDED HISTORY: LLQ abd pain, extends into L flank TECHNOLOGIST PROVIDED HISTORY: Additional Contrast?->None Reason for exam:->LLQ abd pain, extends into L flank Decision Support Exception - unselect if not a suspected or confirmed emergency medical condition->Emergency Medical Condition (MA) What reading provider will be dictating this exam?->CRC FINDINGS: Lower Chest: Visualized portion of the lower chest demonstrates no acute abnormality. Organs: The liver, gallbladder, spleen, pancreas, adrenals are within normal limits. Bilateral kidneys are grossly unremarkable. No hydronephrosis. No radiopaque renal stone. GI/Bowel: There is no evidence of bowel obstruction. No evidence of abnormal bowel wall thickening or distension. The appendix is normal. Pelvis: The urinary bladder is mildly distended. The prostate is unremarkable. Peritoneum/Retroperiton eum: No evidence of ascites or free air. No evidence of lymphadenopathy. Aorta is normal in caliber. Bones/Soft Tissues: No acute abnormality of the visualized osseous structures. No focal soft tissue abnormality. [facility] Rafaela Campuzano MD - 09/16/2024 EXAMINATION: CT OF THE ABDOMEN AND PELVIS WITH CONTRAST 09/16/2024 9:16 pm TECHNIQUE: CT of the abdomen and pelvis was performed with the administration of intravenous contrast. Multiplanar reformatted images are provided for review. Automated exposure control, iterative reconstruction, and/or weight based adjustment of the mA/kV was utilized to reduce the radiation dose to as low as reasonably achievable. COMPARISON: None. HISTORY: ORDERING SYSTEM PROVIDED HISTORY: LLQ abd pain, extends into L flank TECHNOLOGIST PROVIDED HISTORY: Additional Contrast?->None Reason for exam:->LLQ abd pain, extends into L flank Decision Support Exception - unselect if not a suspected or confirmed emergency medical condition->Emergency Medical Condition (MA) What reading provider will be dictating this exam?->CRC FINDINGS: Lower Chest: Visualized portion of the lower chest demonstrates no acute abnormality. Organs: The liver, gallbladder, spleen, pancreas, adrenals are within normal limits. Bilateral kidneys are grossly unremarkable. No hydronephrosis. No radiopaque renal stone. GI/Bowel: There is no evidence of bowel obstruction. No evidence of abnormal bowel wall thickening or distension. The appendix is normal. Pelvis: The urinary bladder is mildly distended. The prostate is unremarkable. Peritoneum/Retroperiton eum: No evidence of ascites or free air. No evidence of lymphadenopathy. Aorta is normal in caliber. Bones/Soft Tissues: No acute abnormality of the visualized osseous structures. No focal soft tissue abnormality. IMPRESSION: No acute intra-abdominal or pelvic process. [facility] Radiology Study observation (narrative) [facility] CT Abdomen and Pelvis W cont rast IVOrdered By: Rafaela Campuzano on 09-16-2024 [facility] Work Phone: Comprehensive Metabolic Pane teofilo 09-16-2024 Anion gap [Moles/Vol] 10 mmol/L Normal 9-15 [facility] Comment on above: Performed By: #### C MP #### [facility] [address] [place] [address] Albumin [Mass/Vol] 4.4 g/dL Normal 3.5-4.6 [facility] Comment on above: Performed By: #### C MP #### [facility] [address] [place] [address] ALP [Catalytic activity/Vol] 76 U/L Normal 35-104 [facility] Comment on above: Performed By: #### C MP #### [facility] [address] [place] [address] ALT [Catalytic activity/Vol] 17 U/L Normal 0-41 [facility] Comment on above: Performed By: #### C MP #### [facility] [address] [place] [address] AST [Catalytic activity/Vol] 15 U/L Normal 0-40 [facility] Comment on above: Performed By: #### C MP #### [facility] [address] [place] [address] Bilirubin [Mass/Vol] 0.4 mg/dL Normal 0.2-0.7 [facility] Comment on above: Performed By: #### C MP #### [facility] [address] [place] [address] Calcium [Mass/Vol] 9.2 mg/dL Normal 8.5-9.9 [facility] Comment on above: Performed By: #### C MP #### [facility] [address] [place] [address] Chloride [Moles/Vol] 102 mmol/L Normal 95-107 [facility] Comment on above: Performed By: #### C MP #### [facility] [address] [place] [address] CO2 [Moles/Vol] 25 mmol/L Normal 20-31 [facility] Comment on above: Performed By: #### C MP #### [facility] [address] [place] [address] Creatinine [Mass/Vol] 0.96 mg/dL Normal 0.70-1.20 [facility] Comment on above: Performed By: #### C MP #### [facility] [address] [place] [address] GFR 83.1 Normal >60 [facility] Comment on above: Result Comment: Buffyi atric calculator link https://www.kidney.org/professionals/kdoqi/gfr_calculatorped Effective Nov 22, 2021 These results are not intended for use in patients <18 years of age. eGFR results are calculated without a race factor using the 2020 CKD-EPI equation. Careful clinical correlation is recommended, particularly when comparing to results calculated using previous equations. The CKD-EPI equation is less accurate in patients with extremes of muscle mass, extra-renal metabolism of creatinine, excessive creatinine ingestion, or following therapy that affects renal tubular secretion. Performed By: #### C MP #### [facility] [address] [place] [address] Globulin (S) [Mass/Vol] 2.7 g/dL Normal 2.3-3.5 [facility] Comment on above: Performed By: #### C MP #### [facility] [address] [place] [address] Glucose [Mass/Vol] 124 mg/dL Critically high 70-99 [facility] Comment on above: Performed By: #### C MP #### [facility] [address] [place] [address] Potassium [Moles/Vol] 4.7 mmol/L Normal 3.4-4.9 [facility] Comment on above: Performed By: #### C MP #### [facility] [address] [place] [address] Protein [Mass/Vol] 7.1 g/dL Normal 6.3-8.0 [facility] Comment on above: Performed By: #### C MP #### [facility] [address] [place] [address] Sodium [Moles/Vol] 137 mmol/L Normal 135-144 [facility] Comment on above: Performed By: #### C MP #### [facility] [address] [place] [address] Urea nitrogen [Mass/Vol] 24 mg/dL Critically high 8-23 [facility] Comment on above: Performed By: #### C MP #### [facility] [address] [place] [address] Comprehensive metabolic 2000 panelon 09-16-2024 Albumin [Mass/Vol] 4.4 g/dL 3.5 - 4.6 g/dL [facility] ALP [Catalytic activity/Vol] 76 U/L 35 - 104 U/L [facility] ALT [Catalytic activity/Vol] 17 U/L 0 - 41 U/L [facility] AST [Catalytic activity/Vol] 15 U/L 0 - 40 U/L [facility] Bilirubin [Mass/Vol] 0.4 mg/dL 0.2 - 0 .7 mg/dL [facility] Calcium [Mass/Vol] 9.2 mg/dL 8.5 - 9.9 mg/dL [facility] Chloride [Moles/Vol] 102 mmol/L [facility] CO2 [Moles/Vol] 25 mmol/L [facility] Creatinine [Mass/Vol] 0.96 mg/dL 0.70 - 1.20 mg/dL [facility] GFR/1.73 sq M.predicted among non-blacks MDRD (S/P/Bld) [Vol rate/Area] 83.1 mL/min/{1.73_m2} 60 - PINF [facility] Comment on above: Pediatric calculator link https://www.kidney.org/professionals/kdoqi/gfr_calculatorped Effective Nov 22, 2021 These results are not intended for use in patients <18 years of age. eGFR results are calculated without a race factor using the 2020 CKD-EPI equation. Careful clinical correlation is recommended, particularly when comparing to results calculated using previous equations. The CKD-EPI equation is less accurate in patients with extremes of muscle mass, extra-renal metabolism of creatinine, excessive creatinine ingestion, or following therapy that affects renal tubular secretion. Globulin (S) [Mass/Vol] 2.7 g/dL 2.3 - 3.5 g/dL [facility] Glucose [Mass/Vol] 124 mg/dL High 70 - 99 mg/dL [facility] Interpretation and review of laboratory results Abnormal [facility] Potassium [Moles/Vol] 4.7 mmol/L [facility] Protein [Mass/Vol] 7.1 g/dL 6.3 - 8.0 g/dL [facility] Sodium [Moles/Vol] 137 mmol/L [facility] Urea nitrogen [Mass/Vol] 24 mg/dL High 8 - 23 mg/dL [facility] Lactic Acidon 09-16-2024 Lactate (BldV) [Moles/Vol] 1.0 mmol/L 0.5 - 2.2 mmol/L [facility] Lactate [Moles/Vol] 1.0 mmol/L Normal 0.5-2.2 [facility] Comment on above: Performed By: #### L ACID #### [facility] [address] [place] [address] Lipaseon 09-16-2024 Lipase [Catalytic activity/Vol] 21 U/L 12 - 95 U/L [facility] Lipase [Catalytic activity/Vol] 21 U/L Normal 12-95 [facility] Comment on above: Performed By: #### L IPAS #### [facility] [address] [place] [address] No Panel Informationon 09-16 Interpretation and review of laboratory results Abnormal [facility] Urinalysis with Reflex to Cu ltureon 09-16-2024 Glucose Test strip (U) [Mass/Vol] Negative Negative mg/dL [facility] Ketones (U) [Mass/Vol] TRACE Abnormal Negative mg/dL [facility] Protein (U) [Mass/Vol] Negative Negative mg/dL [facility] Urine Reflex to Culture Not Indicated [facility] Urobilinogen Qn (U) 0.2 NINF [facility] Urinalysis, reflex to cultur emil 09-16-2024 Bilirubin Ql (U) Negative Normal Negative [facility] Comment on above: Performed By: #### U AR #### [facility] [address] [place] [address] Clarity (U) Clear Normal Clear [facility] Comment on above: Performed By: #### U AR #### [facility] [address] [place] [address] Color (U) Yellow Normal Straw/Baldwin [facility] Comment on above: Performed By: #### U AR #### [facility] [address] [place] [address] Glucose Ql (U) Negative Normal Negative [facility] Comment on above: Performed By: #### U AR #### [facility] [address] [place] [address] Hemoglobin Ql (U) Negative Normal Negative [facility] Comment on above: Performed By: #### U AR #### [facility] [address] [place] [address] Ketones Ql (U) TRACE Abnormal Negative [facility] Comment on above: Performed By: #### U AR #### [facility] [address] [place] [address] Leukocyte esterase Test strip Ql (U) Negative Normal Negative [facility] Comment on above: Performed By: #### U AR #### [facility] [address] [place] [address] Nitrite Ql (U) Negative Normal Negative [facility] Comment on above: Performed By: #### U AR #### [facility] [address] [place] [address] pH (U) 5.5 [pH] Normal 5.0-9.0 [facility] Comment on above: Performed By: #### U AR #### [facility] [address] [place] [address] Protein Ql (U) Negative Normal Negative [facility] Comment on above: Performed By: #### U AR #### [facility] [address] [place] [address] Specific gravity (U) [Rel density] 1.014 Normal 1.005-1.03 [facility] Comment on above: Performed By: #### U AR #### [facility] [address] [place] [address] Urine Reflexed to Culture Not Indicated Normal [facility] Comment on above: Performed By: #### U AR #### [facility] [address] [place] [address] Urobilinogen Qn (U) 0.2 {Bonnie'U}/dL Normal < 2.0 [facility] Comment on above: Performed By: #### U AR #### [facility] [address] [place] [address] CNOVSPon 09-06-2024 CNOVSP Visit (SP) Office ([facility]) JENNIFER TIDWELL ([id number]) [address] [facility] Date Time Provider Department 09/06/24 9:20 AM BRAYDON TELLEZ [facility] During your visit today, we recorded the following information about you: Temperature Pulse Respiration Blood pressure 97.5 degrees 57/minute 16/minute 120/74 Weight 69.6 kg Braydon Tellez MD 09/06/2024 9:54 AM Signed HEMATOLOGY/ONCOLOGY Jennifer Tidwell returns for a follow up EGD/colon performed 02/17/[address] Rivera who ordered Treatment for H pylori 02/24/23: bismuth subsalicylate 262 mg po qid; doxycycline hyclate 100 mg po bid; metronidazole 250 mg po qid; pantoprazole 40 mg po bid. The patient did not take bismuth subsalicylate (only a few doses b/o he is diabetic); therefore he then took Clarithromycin triple therapy 03/07/23. Cardiology referral for atrial fibrillation noted during the procedure. He states he has new diagnosis of prostate cancer [place] 3+3 in October 2023, Dr. Busby (). He is on surveillance. Interim history: Denies bleeding, CP, abdominal pain, headaches, fevers, night sweats or unwanted weight loss. No nausea, vomiting, diarrhea or GI bleed. PMHx, PSHX, FHx and ROS are documented in Epic. All of these were reviewed and verified with patient. Review Of Systems: All systems reviewed with pertinent positives and negatives as outlined in the HPI. Physical Examination: On exam, he appears to be comfortable, in no acute distress. Vitals: see above. Alert and oriented x3. Heart with regular rhythm. No enlarged lymphadenopathy. Abdomen is soft. No hepatosplenomegaly. Lower extremities: No edema. Neuro exam: Nonfocal Labs: 09/02/24 MPA: IgG kappa; UMPA: negative; Latest Reference Range AND Units 03/07/23 11:32 07/06/23 12:05 09/02/24 09:04 M-Protein Concentration <=0.00 g/dL 0.42 (H) 0.37 (H) 0.43 (H) Latest Reference Range AND Units 02/16/24 11:21 09/02/24 09:04 WBC 3.70 - 11.00 k/uL 6.63 5.82 RBC 4.20 - 6.00 m/uL 4.79 4.69 Hemoglobin 13.0 - 17.0 g/dL 14.3 13.7 Hematocrit 39.0 - 51.0 % 42.5 41.9 Platelet Count 150 - 400 k/uL 164 139 (L) MCV 80.0 - 100.0 fL 88.7 89.3 MCH 26.0 - 34.0 pg 29.9 29.2 MCHC 30.5 - 36.0 g/dL 33.6 32.7 MPV 9.0 - 12.7 fL 9.4 9.4 RDW-CV 11.5 - 15.0 % 12.8 12.5 DTYPE Auto Auto Neut% % 62.1 63.1 Abs Neut (ANC) 1.45 - 7.50 k/uL 4.12 3.67 Lymph% % 26.2 24.7 Abs Lymph 1.00 - 4.00 k/uL 1.74 1.44 Rhea% % 8.9 8.6 Abs Rhea <0.87 k/uL 0.59 0.50 Eosin% % 1.7 1.9 Abs Eosin <0.46 k/uL 0.11 0.11 Baso% % 0.5 0.7 Abs Baso <0.11 k/uL 0.03 0.04 Latest Reference Range AND Units 02/16/24 11:21 09/02/24 09:04 Sodium 136 - 144 mmol/L 138 140 Potassium 3.7 - 5.1 mmol/L 4.5 4.7 Chloride 98 - 107 mmol/L 105 106 CO2 22 - 30 mmol/L 30 30 BUN 9 - 24 mg/dL 27 (H) 22 Creatinine 0.73 - 1.22 mg/dL 1.00 0.96 Glucose 74 - 99 mg/dL 121 (H) 124 (H) Protein, Total 6.3 - 8.0 g/dL 6.3 - 8.0 g/dL 7.1 6.5 7.0 Calcium 8.5 - 10.2 mg/dL 9.7 9.7 Albumin 3.9 - 4.9 g/dL 4.4 4.3 Bilirubin, Total 0.2 - 1.3 mg/dL 0.7 0.6 Alkaline Phosphatase 38 - 113 U/L 59 56 ALT 10 - 54 U/L 43 16 AST 14 - 40 U/L 27 14 Anion Gap 8 - 15 mmol/L 3 (L) 4 (L) eGFR >=60 mL/min/1.73m? 79 83 03/15/23 Bone marrow, aspirate, touch imprint, clot section and core biopsy: - Normocellular marrow (30%) with trilineage hematopoiesis. - Adequate megakaryocytes. - Stainable iron present without ring sideroblasts. - Plasma cell hyperplasia with slightly increased kappa:lambda ratio (see comment). - No evidence of marrow involvement by lymphoma (see comment). There is no evidence of involvement by a lymphoproliferative disorder or abnormal blast population. Correlation with the clinical and bone marrow histopathologic findings is suggested. 02/17/23 A. 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 - Gastric antral mucosa with chronic active gastritis. - Positive for H. pylori microorganisms (morphologically confirmed on ANDREY sections). Interphase fluorescence in situ hybridization (FISH) was negative for a rearrangement involving the MALT1 gene (18q21.32). Diagnosis Comment ANDREY-stained sections in part A reveal gastric antral mucosa with chronic active gastritis and a diffuse vaguely nodular lymphoid infiltrate composed of small mature lymphocytes with abundant cytoplasm, slightly irregular nuclear contours, and intermixed plasma cells. Multifocally, these lymphocytes are infiltrating mucus glands, compatible with lymphoepithelial lesions. H. pylori organisms are also identified on the ANDREY section. Immunohistochemical stains were performed at [facility] on block A1. A significant majority (80%) of the lymphocytes are atypical B cells, positive for CD20 and CD43. CD3 and CD5 highlight (more content not included)... Normal [facility] CBC W Auto Differential pane l (Bld)on 09-02-2024 Basophils (Bld) [#/Vol] 0.04 10*3/uL Normal <0.11 [facility] Comment on above: Order Comment: Speci men Type: BLOOD SPECIMENOrdering Facility: [facility] Address: [address] [place] [address] Performed By: #### 5 7021-8 ####[facility] LABCLIA [id number] [place] [address] [place] Basophils/100 WBC (Bld) 0.7 % Normal [facility] Comment on above: Order Comment: Speci men Type: BLOOD SPECIMENOrdering Facility: [facility] Address: [address] [place] [address] Performed By: #### 5 7021-8 ####[facility] LABCLIA [id number] [place] [address] [place] Differential cell count method Nom (Bld) Auto Normal [facility] Comment on above: Order Comment: Speci men Type: BLOOD SPECIMENOrdering Facility: [facility] Address: [address] [place] [address] Performed By: #### 5 7021-8 ####[facility]ENTERP[facility] LABCLIA [id number] [place] [id number] [place] Eosinophils (Bld) [#/Vol] 0.11 10*3/uL Normal <0.46 [facility] Comment on above: Order Comment: Speci men Type: BLOOD SPECIMENOrdering Facility: [facility] Address: [address] [place] [address] Performed By: #### 5 7021-8 ####[facility]ENTER[facility] LABCLIA [id number] [place] [id number] [place] Eosinophils/100 WBC (Bld) 1.9 % Normal [facility] Comment on above: Order Comment: Speci men Type: BLOOD SPECIMENOrdering Facility: [facility] Address: [address] [place] [address] Performed By: #### 5 7021-8 ####MERRY [facility] LABCLIA [id number] [place] [address] [place] Erythrocyte distribution width (RBC) [Ratio] 12.5 % Normal 11.5-15.0 [facility] Comment on above: Order Comment: Speci men Type: BLOOD SPECIMENOrdering Facility: [facility] Address: [address] [place] [address] Performed By: #### 5 7021-8 ####[facility] LABIA [id number] [place] [id number] [place] Hematocrit (Bld) [Volume fraction] 41.9 % Normal 39.0-51.0 [facility] Comment on above: Order Comment: Speci men Type: BLOOD SPECIMENOrdering Facility: [facility] Address: [address] [place] [address] Performed By: #### 5 7021-8 ####[facility]ENTERP[facility] LABIA [id number] [place] [id number] [place] Hemoglobin (Bld) [Mass/Vol] 13.7 g/dL Normal 13.0-17.0 [facility] Comment on above: Order Comment: Speci men Type: BLOOD SPECIMENOrdering Facility: [facility] Address: [address] [place] [address] Performed By: #### 5 7021-8 ####[facility] LABIA [id number] [place] [id number] [place] Immature granulocytes (Bld) [#/Vol] 0.06 10*3/uL Normal <0.10 [facility] Comment on above: Order Comment: Speci men Type: BLOOD SPECIMENOrdering Facility: [facility] Address: [address] [place] [address] Performed By: #### 5 7021-8 ####[facility] LABIA [id number] [place] [id number] [place] Immature granulocytes/100 WBC (Bld) 1.0 % Normal [facility] Comment on above: Order Comment: Speci men Type: BLOOD SPECIMENOrdering Facility: [facility] Address: [address] [place] [address] Performed By: #### 5 7021-8 ####[facility]ENTERP[facility]et [facility] LABCLIA [id number] [place] [address] [place] Lymphocytes (Bld) [#/Vol] 1.44 10*3/uL Normal 1.00-4.00 [facility] Comment on above: Order Comment: Speci men Type: BLOOD SPECIMENOrdering Facility: [facility] Address: [address] [place] [address] Performed By: #### 5 7021-8 ####[facility] LABIA [id number] [place] [id number] [place] Lymphocytes/100 WBC (Bld) 24.7 % Normal [facility] Comment on above: Order Comment: Speci men Type: BLOOD SPECIMENOrdering Facility: [facility] Address: [address] [place] [address] Performed By: #### 5 7021-8 ####[facility]ENTERP[facility]et [facility] LABIA [id number] [place] [id number] [place] MCH (RBC) [Entitic mass] 29.2 pg Normal 26.0-34.0 [facility] Comment on above: Order Comment: Speci men Type: BLOOD SPECIMENOrdering Facility: [facility] Address: [address] [place] [address] Performed By: #### 5 7021-8 ####[facility] LABIA [id number] [place] [address] [place] MCHC (RBC) [Mass/Vol] 32.7 g/dL Normal 30.5-36.0 [facility] Comment on above: Order Comment: Speci men Type: BLOOD SPECIMENOrdering Facility: [facility] Address: [address] [place] [address] Performed By: #### 5 7021-8 ####[facility]ERT [facility] LABCLIA [id number] [place] [id number] [place] MCV (RBC) [Entitic vol] 89.3 fL Normal 80.0-100.0 [facility] Comment on above: Order Comment: Speci men Type: BLOOD SPECIMENOrdering Facility: [facility] Address: [address] [place] [address] Performed By: #### 5 7021-8 ####[facility] LABCLIA [id number] [place] [id number] [place] Monocytes (Bld) [#/Vol] 0.50 10*3/uL Normal <0.87 [facility] Comment on above: Order Comment: Speci men Type: BLOOD SPECIMENOrdering Facility: [facility] Address: [address] [place] [address] Performed By: #### 5 7021-8 ####[facility] LABIA [id number] [place] [id number] [place] Monocytes/100 WBC (Bld) 8.6 % Normal [facility] Comment on above: Order Comment: Speci men Type: BLOOD SPECIMENOrdering Facility: [facility] Address: [address] [place] [address] Performed By: #### 5 7021-8 ####[facility] LABIA [id number] [place] [id number] [place] Neutrophils (Bld) [#/Vol] 3.67 10*3/uL Normal 1.45-7.50 [facility] Comment on above: Order Comment: Speci men Type: BLOOD SPECIMENOrdering Facility: [facility] Address: [address] [place] [address] Performed By: #### 5 7021-8 ####[facility] LABIA [id number] [place] [id number] [place] Neutrophils/100 WBC (Bld) 63.1 % Normal [facility] Comment on above: Order Comment: Speci men Type: BLOOD SPECIMENOrdering Facility: [facility] Address: [address] [place] [address] Performed By: #### 5 7021-8 ####[facility] LABCLIA [id number] [place] [address] [place] Nucleated RBC (Bld) [#/Vol] 10*3/uL Normal <0.01 [facility] Comment on above: Order Comment: Speci men Type: BLOOD SPECIMENOrdering Facility: [facility] Address: [address] [place] [address] Performed By: #### 5 7021-8 ####[facility] LABIA [id number] [place] [id number] [place] Nucleated RBC/100 WBC (Bld) [Ratio] 0.0 /100 WBC Normal [facility] Comment on above: Order Comment: Speci men Type: BLOOD SPECIMENOrdering Facility: [facility] Address: [address] [place] [address] Performed By: #### 5 7021-8 ####[facility]ENTERPuneet [facility] LABIA [id number] [place] [id number] [place] Platelet mean volume (Bld) [Entitic vol] 9.4 fL Normal 9.0-12.7 [facility] Comment on above: Order Comment: Speci men Type: BLOOD SPECIMENOrdering Facility: [facility] Address: [address] [place] [address] Performed By: #### 5 7021-8 ####[facility]ENTERPuneet [facility] LABIA [id number] [place] [address] [place] Platelets (Bld) [#/Vol] 139 10*3/uL Low 150-400 [facility] Comment on above: Order Comment: Speci men Type: BLOOD SPECIMENOrdering Facility: [facility] Address: [address] [place] [address] Performed By: #### 5 7021-8 ####[facility] LABCLIA [id number] [place] [address] [place] RBC (Bld) [#/Vol] 4.69 10*6/uL Normal 4.20-6.00 [facility] Comment on above: Order Comment: Speci men Type: BLOOD SPECIMENOrdering Facility: [facility] Address: [address] [place] [address] Performed By: #### 5 7021-8 ####MERRY [facility] LABCLIA [id number] [place] [address] [place] WBC (Bld) [#/Vol] 5.82 10*3/uL Normal 3.70-11.00 [facility] Comment on above: Order Comment: Speci men Type: BLOOD SPECIMENOrdering Facility: [facility] Address: [address] [place] [address] Performed By: #### 5 7021-8 ####[facility] LABCLIA [id number] [place] [id number] [place] Comprehensive metabolic 2000 panelon 09-02-2024 Albumin [Mass/Vol] 4.3 g/dL Normal 3.9-4.9 [facility] Comment on above: Order Comment: Speci men Type: BLOOD SPECIMEN [facility]ing Facility: [facility] Address: [address] [place] [address] Performed By: #### 5 7021-8 #### MERRY [facility] LAB CLIA [id number] [address] [place] [address] [place] ALP [Catalytic activity/Vol] 56 U/L Normal 38-113 [facility] Comment on above: Order Comment: Speci men Type: BLOOD SPECIMEN [facility]ing Facility: [facility] Address: [address] [place] [address] Performed By: #### 5 7021-8 #### [facility]HCLEOPATRAT [facility] LAB CLIA [id number] [address] [place] [address] [place] ALT [Catalytic activity/Vol] 16 U/L Normal 10-54 [facility] Comment on above: Order Comment: Speci men Type: BLOOD SPECIMEN [facility]ing Facility: [facility] Address: [address] [place] [address] Performed By: #### 5 7021-8 #### AMHRAINER [facility] LAB CLIA [id number] [address] [place] [address] [place] Anion gap [Moles/Vol] 4 mmol/L Low 8-15 [facility] Comment on above: Order Comment: Speci men Type: BLOOD SPECIMEN [facility]ing Facility: [facility] Address: [address] [place] [address] Performed By: #### 5 7021-8 #### [facility] LAB CLIA [id number] [address] [place] [address] [place] AST [Catalytic activity/Vol] 14 U/L Normal 14-40 [facility] Comment on above: Order Comment: Speci men Type: BLOOD SPECIMEN [facility]ing Facility: [facility] Address: [address] [place] [address] Performed By: #### 5 7021-8 #### [facility] LAB CLIA [id number] [address] [place] [address] [place] Bilirubin [Mass/Vol] 0.6 mg/dL Normal 0.2-1.3 [facility] Comment on above: Order Comment: Speci men Type: BLOOD SPECIMEN [facility]ing Facility: [facility] Address: [address] [place] [address] Performed By: #### 5 7021-8 #### [facility] LAB CLIA [id number] [address] [place] [address] [place] Calcium [Mass/Vol] 9.7 mg/dL Normal 8.5-10.2 [facility] Comment on above: Order Comment: Speci men Type: BLOOD SPECIMEN [facility]ing Facility: [facility] Address: [address] [place], [place] [address] Performed By: #### 5 7021-8 #### [facility] LAB CLIA [id number] [address] [place] [address] [place] Chloride [Moles/Vol] 106 mmol/L Normal 98-107 [facility] Comment on above: Order Comment: Speci men Type: BLOOD SPECIMEN [facility]ing Facility: [facility] Address: [address] [place] [address] Performed By: #### 5 7021-8 #### [facility] CLIA [id number] [address] [place] [address] [place] CO2 [Moles/Vol] 30 mmol/L Normal 22-30 [facility] Comment on above: Order Comment: Speci men Type: BLOOD SPECIMEN [facility]ing Facility: [facility] Address: [address] [place] [address] Performed By: #### 5 7021-8 #### [facility] CLIA [id number] [address] [place] [address] [place] Creatinine [Mass/Vol] 0.96 mg/dL Normal 0.73-1.22 [facility] Comment on above: Order Comment: Speci men Type: BLOOD SPECIMEN [facility]ing Facility: [facility] Address: [address] [place] [address] Performed By: #### 5 7021-8 #### [facility] CLIA [id number] [address] [place] [address] [place] Creatinine and Glomerular filtration rate.predicted panel (S/P/Bld) 83 mL/min/1.73m??? Normal >=60 [facility] Comment on above: Order Comment: Speci men Type: BLOOD SPECIMEN Ordering Facility: [facility] Address: [address] [place] [address] Result Comment: Tami mated Glomerular Filtration Rate (eGFR) is calculated using the 2020 CKD-EPI creatinine equation. This equation utilizes serum creatinine, sex, and age as parameters. The creatinine assay has traceable calibration to isotope dilution-mass spectrometry. Refer to KDIGO guidelines for clinical interpretation. In patients with unstable renal function, e.g. those with acute kidney injury, the eGFR may not accurately reflect actual GFR. Performed By: #### 5 7021-8 #### AMHERST [facility] CLIA [id number] [address] [place] [address] [place] Glucose [Mass/Vol] 124 mg/dL High 74-99 [facility] Comment on above: Order Comment: Speci men Type: BLOOD SPECIMEN [facility]ing Facility: [facility] Address: [address] [place], [place] [address] Result Comment: The [place] Diabetes Association (ADA) provides guidance for cutoff values for fasting glucose and random glucose. The ADA defines fasting as no caloric intake for at least 8 hours. Fasting plasma glucose results between 100 to 125 mg/dL indicate increased risk for diabetes (prediabetes). Fasting plasma glucose results greater than or equal to 126 mg/dL meet the criteria for diagnosis of diabetes. In the absence of unequivocal hyperglycemia, results should be confirmed by repeat testing. In a patient with classic symptoms of hyperglycemia or hyperglycemic crisis, random plasma glucose results greater than or equal to 200 mg/dL meet the criteria for diagnosis of diabetes. Reference: Standards of Medical Care in Diabetes 2016, [place] [employer] Association. Diabetes Care. 2016.39(Suppl 1). Performed By: #### 5 7021-8 #### [facility]ITAL[facility]OP[facility]RAT [facility] CLIA [id number] [address] [place] [address] [place] Potassium [Moles/Vol] 4.7 mmol/L Normal 3.7-5.1 [facility] Comment on above: Order Comment: Sachini men Type: BLOOD SPECIMEN Ordering Facility: [facility] Address: [address] [place] [address] Performed By: #### 5 7021-8 #### [facility]ST [facility] CLIA [id number] [address] [place] [address] [place] Protein [Mass/Vol] 7.0 g/dL Normal 6.3-8.0 [facility] Comment on above: Order Comment: Speci men Type: BLOOD SPECIMEN Ordering Facility: [facility] Address: [address] [place], [place] [address] Performed By: #### 5 7021-8 #### [facility] CLIA [id number] [address] [place], [place] [address] [place] Sodium [Moles/Vol] 140 mmol/L Normal 136-144 [facility] Comment on above: Order Comment: Speci men Type: BLOOD SPECIMEN [facility]ing Facility: [facility] Address: [address] [place] [address] Performed By: #### 5 7021-8 #### [facility] CLIA [id number] [address] [place] [address] [place] [facility] Urea nitrogen [Mass/Vol] 22 mg/dL Normal 9-24 [facility] Comment on above: Order Comment: Speci men Type: BLOOD SPECIMEN Ordering Facility: [facility] Address: [address] [place] [address] Performed By: #### 5 7021-8 #### [facility] CLIA [id number] [address] [place] [address] IMMUNOFIXATION SCREEN, SERUM on 09-02-2024 INTERPRETATION (MPA) Normal [facility] Comment on above: Order Comment: Speci men Type: BLOOD SPECIMEN Ordering Facility: [facility] Address: [address] [place] [address] Result Comment: Atyp ical restricted bands are present in the IgG and kappa regions. Consistent with IgG kappa monoclonal gammopathy. Poorly defined region of restricted mobility in IgM and kappa lanes. Pattern is less well defined or fainter than typically seen in monoclonal gammopathy. This could represent either an atypical presentation of polyclonal immunoglobulins or the presence of a low level IgM kappa monoclonal gammopathy. Performed By: #### 5 7021-8 #### [facility] CLIA [id number] [address] [place] [address] [facility] MPA RESULT M protein is present. Abnormal No M p rotein is identified. [facility] Comment on above: Order Comment: Speci men Type: BLOOD SPECIMEN Ordering Facility: [facility] Address: [address] [place], [place] [address] Performed By: #### 5 7021-8 #### [facility] CLIA [id number] [address] [place] [address] STAFF REVIEW (MPA) Reviewed by Dr. Luisito Gonzalez MD Normal [facility] Comment on above: Order Comment: Speci men Type: BLOOD SPECIMEN Ordering Facility: [facility] Address: [address] [place] [address] Performed By: #### 5 7021-8 #### [facility] CLIA [id number] [address] [place], [place] [address] [place] IMMUNOGLOBULINS,IGG,IGA,IGMo n 09-02-2024 IgA [Mass/Vol] 124 mg/dL Normal 70-400 [facility] Comment on above: Order Comment: Speci men Type: BLOOD SPECIMEN Ordering Facility: [facility] Address: [address] [place] [address] Performed By: #### 5 7021-8 #### [facility] CLIA [id number] [address] [place] [address] [place] IgG [Mass/Vol] 1041 mg/dL Normal 700-1600 [facility] Comment on above: Order Comment: Speci men Type: BLOOD SPECIMEN Ordering Facility: [facility] Address: [address] [place] [address] Performed By: #### 5 7021-8 #### [facility] CLIA [id number] [address] [place] [address] [place] IgM [Mass/Vol] 105 mg/dL Normal 40-230 [facility] Comment on above: Order Comment: Speci men Type: BLOOD SPECIMEN Ordering Facility: [facility] Address: [address] [place] [address] Performed By: #### 5 7021-8 #### [facility] CLIA [id number] [address] [place], [place] [address] [place] KAPPA/RAJPUT,FREE,SERon 2024 Immunoglobulin light chains.kappa.free (S) [Mass/Vol] 21.9 mg/L High 3.3-19.4 [facility] Comment on above: Order Comment: Speci men Type: BLOOD SPECIMEN Ordering Facility: [facility] Address: [address] [place] [address] Result Comment: Rare ly, increased serum free light chains levels may not be detected or accurately quantified due to prozone phenomenon or in high viscosity samples using this immunoturbidimetric assay. Correlation with other laboratory results and clinical findings is recommended. The [place] Free Light Chain was performed using the Binding Site Optilite immunoturbidimetric method. Result obtained with different assay methods or kits cannot be used interchangeably. Performed By: #### 5 7021-8 #### [facility] CLIA [id number] [address] [place], [place] [address] [place] Immunoglobulin light chains.kappa/Immunogl obulin light chains.lambda (S) [Mass ratio] 2.23 High 0.26-1.65 [facility] Comment on above: Order Comment: Speci men Type: BLOOD SPECIMEN Ordering Facility: [facility] Address: [address] [place] [address] Performed By: #### 5 7021-8 #### [facility] CLIA [id number] [address] [place] [address] [place] Immunoglobulin light chains.lambda.free [Mass/Vol] 9.8 mg/L Normal 5.7-26.3 [facility] Comment on above: Order Comment: Speci men Type: BLOOD SPECIMEN Ordering Facility: [facility] Address: [address] [place] [address] Result Comment: Rare ly, increased serum free light chains levels may not be detected or accurately quantified due to prozone phenomenon or in high viscosity samples using this immunoturbidimetric assay. Correlation with other laboratory results and clinical findings is recommended. The [place] Free Light Chain was performed using the Binding Site Optilite immunoturbidimetric method. Result obtained with different assay methods or kits cannot be used interchangeably. Performed By: #### 5 7021-8 #### [facility] CLIA [id number] [address] [place], [place] [address] [place] MONOCLONAL PROT UR W/INTERPo n 09-02-2024 STAFF REVIEW ([facility] Reviewed by Dr. Luisito Gonzalez MD [facility] Comment on above: Order Comment: Speci men Type: URINE SPECIMENOrdering Facility: [facility] Address: [address] [place] [address] Performed By: #### U RMPA ####[facility] [id number] [place] [address] [place] UMPA RESULT No M protein is identified. Normal No M protein is identified. [facility] Comment on above: Order Comment: Speci men Type: URINE SPECIMENOrdering Facility: [facility] Address: [address] [place] [address] Performed By: #### U RMPA ####[facility] [id number] [place] [address] [place] PROTEIN ELECTROPHORESIS SERU M (P)on 09-02-2024 Albumin [Mass/Vol] 4.18 g/dL Normal 3.43-5.41 [facility] Comment on above: Order Comment: Speci men Type: BLOOD SPECIMEN Ordering Facility: [facility] Address: [address] [place] [address] Performed By: #### 5 7021-8 #### [facility] CLIA [id number] [address] [place] [address] [place] Alpha 1 globulin Elph [Mass/Vol] 0.30 g/dL Normal 0.18-0.43 [facility] Comment on above: Order Comment: Speci men Type: BLOOD SPECIMEN Ordering Facility: [facility] Address: [address] [place] [address] Performed By: #### 5 7021-8 #### [facility] CLIA [id number] [address] [place] [address] [place] Alpha 2 globulin Elph [Mass/Vol] 0.52 g/dL Normal 0.42-0.98 [facility] Comment on above: Order Comment: Speci men Type: BLOOD SPECIMEN Ordering Facility: [facility] Address: [address] [place] [address] Performed By: #### 5 7021-8 #### [facility] CLIA [id number] [address] [place] [address] [place] Beta globulin Elph [Mass/Vol] 0.63 g/dL Normal 0.61-1.17 [facility] Comment on above: Order Comment: Speci men Type: BLOOD SPECIMEN Ordering Facility: [facility] Address: [address] [place] [address] Performed By: #### 5 7021-8 #### [facility] CLIA [id number] [address] [place] [address] [place] Gamma globulin Elph [Mass/Vol] 0.87 g/dL Normal 0.53-1.51 [facility] Comment on above: Order Comment: Speci men Type: BLOOD SPECIMEN Ordering Facility: [facility] Address: [address] [place] [address] Performed By: #### 5 7021-8 #### [facility] CLIA [id number] [address] [place] [address] [place] INTERPRETATION COMMENT FOR PROTEIN ELECTROPHORESIS See separate immunofixation report for characterization of monoclonal gammopathy. Normal [facility] Comment on above: Order Comment: Speci men Type: BLOOD SPECIMEN Ordering Facility: [facility] Address: [address] [place] [address] Performed By: #### 5 7021-8 #### [facility] CLIA [id number] [address] [place] [address] [place] M-PROTEIN LOCATION Gamma Fraction 1 Normal [facility] Comment on above: Order Comment: Speci men Type: BLOOD SPECIMEN Ordering Facility: [facility] Address: [address] [place] [address] Performed By: #### 5 7021-8 #### [facility] CLIA [id number] [address] [place], [place] [address] [place] Protein Fractions [Interp] An M protein is identified on protein electrophoresis. Abnormal No definitive M protein is identified on protein electrophore sis. [facility] Comment on above: Order Comment: Speci men Type: BLOOD SPECIMEN Ordering Facility: [facility] Address: [address] [place] [address] Performed By: #### 5 7021-8 #### [facility] CLIA [id number] [address] [place] [address] [place] Protein.monoclonal Elph [Mass/Vol] 0.43 g/dL High <=0.00 [facility] Comment on above: Order Comment: Speci men Type: BLOOD SPECIMEN Ordering Facility: [facility] Address: [address] [place] [address] Performed By: #### 5 7021-8 #### [facility] CLIA [id number] [address] [place] [address] [place] SPE STAFF REVIEW Reviewed by Dr. Luisito Gonzalez MD [facility] Comment on above: Order Comment: Speci men Type: BLOOD SPECIMEN Ordering Facility: [facility] Address: [address] [place] [address] Performed By: #### 5 7021-8 #### [facility] CLIA [id number] [address] [place] [address] [place] Prot SerPl-mCncon 09-02-2024 Protein [Mass/Vol] 6.5 g/dL Normal 6.3-8.0 [facility] Comment on above: Order Comment: Speci men Type: BLOOD SPECIMENOrdering Facility: [facility] Address: [address] [place] [address] Performed By: #### 2 885-2 ####[facility] [id number] [address] [place] Prot Ur-mCncon 09-02-2024 Protein (U) [Mass/Vol] mg/dL Normal 0-20 [facility] Comment on above: Order Comment: Speci men Type: BLOOD SPECIMEN Ordering Facility: [facility] Address: [address] [place] [address] Performed By: #### 5 7021-8 #### [facility] CLIA [id number] [address] [place] [address] [place] URINE PROTEIN ELECTROPHORESI S RANDOM (P)on 09-02-2024 Albumin Elph (U) [Mass fraction] 43.60 % Normal [facility] Comment on above: Order Comment: Speci men Type: BLOOD SPECIMEN Ordering Facility: [facility] Address: [address] [place] [address] Performed By: #### 5 7021-8 #### [facility] CLIA [id number] [address] [place] [address] [place] Alpha 1 globulin Elph (U) [Mass fraction] 7.19 % Normal [facility] Comment on above: Order Comment: Speci men Type: BLOOD SPECIMEN Ordering Facility: [facility] Address: [address] [place] [address] Performed By: #### 5 7021-8 #### [facility] CLIA [id number] [address] [place] [address] [place] Alpha 2 globulin Elph (U) [Mass fraction] 17.99 % Normal [facility] Comment on above: Order Comment: Speci men Type: BLOOD SPECIMEN Ordering Facility: [facility] Address: [address] [place] [address] Performed By: #### 5 7021-8 #### [facility] CLIA [id number] [address] [place] [address] [place] Beta globulin Elph (U) [Mass fraction] 21.44 % Normal [facility] Comment on above: Order Comment: Speci men Type: BLOOD SPECIMEN Ordering Facility: [facility] Address: [address] [place] [address] Performed By: #### 5 7021-8 #### [facility] CLIA [id number] [address] [place] [address] [place] Gamma globulin Elph (U) [Mass fraction] 9.78 % Normal [facility] Comment on above: Order Comment: Speci men Type: BLOOD SPECIMEN Ordering Facility: [facility] Address: [address] [place] [address] Performed By: #### 5 7021-8 #### [facility] CLIA [id number] [address] [place] [address] [place] Protein Fractions Elph Edward (U) [Interp] No definitive M protein is identified on protein electrophoresis. Normal No definitive M protein is identified on protein electrophore sis. [facility] Comment on above: Order Comment: Speci men Type: BLOOD SPECIMEN Ordering Facility: [facility] Address: [address] [place] [address] Performed By: #### 5 7021-8 #### [facility] CLIA [id number] [address] [place] [address] STAFF REVIEW (URINE ELECTRO) Reviewed by Dr. Rita Gonzalez MD Normal [facility] Comment on above: Order Comment: Speci men Type: BLOOD SPECIMEN Ordering Facility: [facility] Address: [address] [place] [address] Performed By: #### 5 7021-8 #### [facility] CLIA [id number] [address] [place] [address] [place] PSA, TOTALon 08-30-2024 PSA, TOTAL 7.83 ng/mL High < OR = 4.00 [facility] Comment on above: Order Comment: FASTI NG:NO FASTING: NO Result Comment: The total PSA value from this assay system is standardized against the WHO standard. The test result will be approximately 20% lower when compared to the equimolar-standardized total PSA ([place]). Comparison of serial PSA results should be interpreted with this fact in mind. This test was performed using the Siemens chemiluminescent method. Values obtained from different assay methods cannot be used interchangeably. PSA levels, regardless of value, should not be interpreted as absolute evidence of the presence or absence of disease. Performed By: #### 5 363 #### [facility] [address], [address] [place] [address] Plaque Maker: Lucien Morocho MD Hemoglobin A1con 08-21-2024 HbA1c (Bld) [Mass fraction] 6.0 % High <=5.6 [facility] Comment on above: Result Comment: Norm al < 5.7 % Prediabetic 5.7 - 6.4 % Diabetic >or= 6.5 % Please note range changes. Performed By: #### L 501.9985, L501.9940, L501.9520 #### [facility] [address] [place], [place], [id number] Hemoglobin A1c percentageOrd ered By: Jerel Bennett on 08-21-2024 HbA1c (Bld) [Mass fraction] 6.0 % High <5.7 [facility] Comment on above: Normal < 5.7 % Predi abetic 5.7 - 6.4 % Diabetic >or= 6.5 % Please note range changes. PSA,Total- Diagnosticon PSA, DIAGNOSTIC 8.56 ng/mL High 0.00-4.00 [facility] Comment on above: Result Comment: This test was performed using the [employer] tPSA method. Measured values of a patient??sample can vary depending on the testing procedure used. PSA values determined on patient samples by different testing procedures cannot be used interchangeably. If there is a change in PSA assays while monitoring therapy, sequential testing should be performed to confirm baseline values. Performed By: #### L 501.9985, L501.9940, L501.9520 #### [facility] [address] [facility] [address] [place], [place], [address] TSH DL <= 0.005 mIU/L QnOrde red By: Jerel Bennett on 08-21-2024 TSH Qn 1.450 uIU/mL 0.300-4.200 [facility] Thyroid Stim Hormone (TSH)on 08-21-2024 TSH 1.450 uIU/mL Normal 0.300-4.200 [facility] Comment on above: Performed By: #### L 501.9985, L501.9940, L501.9520 #### [facility] [address] [facility] [address] [place], [place], [id number] ANES POSTPROC EVALon 08-12-2 025 ANES POSTPROC EVAL HNO ID: [id number] Author: MARCIAL GREGORIO MD Service: ? 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 PACU/ICU Patient Condition: stable. Neurological Status: aware and responsive. Pulmonary Status: breathing comfortably on supplemental oxygen Airway Control: returned to baseline unsupported. Cardiovascular Status: stable. Pain Management: clinically adequate Postoperative Hydration: acceptable. Intraoperative Events: no significant anesthesia events Post Operative Nausea/Vomiting Status: no significant post operative nausea or vomiting Recommendation: continue current plan of care, further care per PACU/ICU/floor team and pain control. Anesthesia Observations No Documentation SIGNATURE: Marcial Gregorio MD PATIENT NAME: Jennifer Tidwell DATE: August 12, 2024 TIME: 2:21 PM CSN: [id number] Normal [facility] ANES PRE-OPon 08-12-2024 ANES PRE-OP HNO ID: [id number] Author: MARCIAL GREGORIO MD Service: ? Author Type: Anesthesiologist Type: Anesthesia Preprocedure Evaluation Filed: 08/12/2024 12:09 Note Text: ANESTHESIOLOGY DAY OF SURGERY NOTE : 1950 Procedure Information Date/Time: 08/12/24 1300 Scheduled providers: Erin Rivera MD; Adryan Rogel APRN.GLOBE MOUNTER Procedure: EGD DIAGNOSTIC Location: Gastroenterology Estimated body mass index is 22.89 kg/m? as calculated from the following: Height as of 08/05/24: 175.3 cm (5' 9). Weight as of 08/05/24: 70.3 kg (155 lb). Most recent hematocrit and potassium results: Hematocrit 42.5 02/16/2024 Potassium 4.5 02/16/2024 Relevant Problems ANESTHESIA (+) ALLISON (obstructive sleep apnea) CARDIO (+) HTN (hypertension) (+) Migraine with visual aura ENDO (+) Hypothyroidism -RENAL (+) Renal stone NEURO-PSYCH (+) Migraine with visual aura PULMONARY (+) ALLISON (obstructive sleep apnea) Other (+) Arthritis of right foot (+) Capsulitis of metatarsophalangeal (MTP) joint of right foot I - PHYSICAL EVALUATION AIRWAY Patient intubated: No. Tracheostomy tube not present Mallampati: II. TM distance: >3 FB. Neck ROM: full ROM without neurological symptoms. Mouth opening: adequate. Short neck: no. Thick neck: no II - ANESTHESIA PLAN ASA Score: 3 Anesthetic Plan: MAC NPO Status: adequate Beta Dalia Monitoring Plan Monitoring plan: standard ASA. Post Procedure Analgesic Plan Postoperative analgesic plan: multimodal analgesia. Informed Consent Anesthetic risks, benefits, alternatives, personnel and consent discussed: yes. Patient / Responsible Alliance Party agrees to proceed: yes Patient / Surrogate agrees to blood products: blood products not planned DNR status not reviewed with patient and/or family prior to surgery. Significant changes in the patient condition since the History and Physical, not otherwise documented in primary service progress note: no. Potential Anesthesia issues that may suggest increased risk of complications or contraindication to planned procedure: none. No vitals data found for the desired time range. Outpatient Medications as of 08/12/2024 Medication Sig cholecalciferol, vitD3,/vit K2 (VITAMIN D3-VITAMIN K2 ORAL) Take by mouth. ascorbic acid (VITAMIN C ORAL) Take by mouth. C/sourcherry/celery/gra pe seed (TART ACOSTA ORAL) Take by mouth. BLUEBERRY APPLE CIDER VINEGAR ORAL Take by mouth. VITAMIN B COMPLEX ORAL Take by mouth. levothyroxine (SYNTHROID) 50 mcg tablet Take 50 mcg by mouth once daily. OTC NUTRITIONAL SUPPLEMENT once daily. QC Turmeric Apolic Acid Bererdine with Cylon Cinnamon Zinc MCT Oil No current facility-administered medications on file as of 08/12/2024. I have interviewed and examined the patient. I have reviewed the medical record and/or the pre-anesthesia evaluation, pertinent labs, and test results. This contains updated information obtained within 48 hours of Surgery/Procedure. SIGNATURE: Marcial Gregorio MD PATIENT NAME: Jennifer Tidwell DATE: August 12, 2024 TIME: 12:09 PM CSN: [id number] Normal [facility] EGD Study observation Narrat iveon 08-12-2024 [facility] Radiology Study observation (narrative) [facility] GLUCOSE, BLOOD (POC)on 08-12 Glucose [Mass/Vol] 132 mg/dL Abnormal 74 - 99 mg/dL [facility] Comment on above: Location:[place] [address] The Accu-Chek Inform II glucose meter has not been approved for testing on patients receiving intensive medical intervention or therapy and results from this point of care glucose test should not be used for patient management decisions in these cases. Inaccurate results may also occur from other interfering factors, such as N-acetylcysteine (blood concentrations of greater than 5mg/dL), galactose, extremes of hematocrit (<10 or >65), or high doses of ascorbic acid (vitamin C) greater than 3mg/dL. Consider alternate testing mechanisms (e.g. core lab, blood gas instrument) in the above situations. Interpretation and review of laboratory results Abnormal [facility] Glucose [Mass/Vol] 133 mg/dL Abnormal 74 - 99 mg/dL [facility] Comment on above: Location:[place] [address] The Accu-Chek Inform II glucose meter has not been approved for testing on patients receiving intensive medical intervention or therapy and results from this point of care glucose test should not be used for patient management decisions in these cases. Inaccurate results may also occur from other interfering factors, such as N-acetylcysteine (blood concentrations of greater than 5mg/dL), galactose, extremes of hematocrit (<10 or >65), or high doses of ascorbic acid (vitamin C) greater than 3mg/dL. Consider alternate testing mechanisms (e.g. core lab, blood gas instrument) in the above situations. Interpretation and review of laboratory results Abnormal [facility] HISTORY PHYSICALon HISTORY PHYSICAL HNO ID: [id number] Author: ERIN RIVERA MD Service: General Surgery Author Type: Physician Type: H&P Filed: 08/12/2024 12:30 Note Text: ENDOSCOPY HISTORY AND PHYSICAL EXAM Jennifer Tidwell [id number] Subjective HPI: This is a 72 year old male who presents for endoscopy. He has a history of hypertension, diabetes and sleep apnea. He was evaluated outpatient gastroenterology clinic in fall 2022 for a complaint of burning/coughing sensation in his throat with coffee or other triggers but without dysphagia or odynophagia. An EGD in 01/2023 demonstrated H pylori infection and mild MALT lymphoma. He was treated for MALT lymphoma. He has had surveillance EGD in 07/2023, and 01/2024. He returns for surveillance EGD PAST ANESTHESIA HISTORY: stomach cramps with fentanyl PAST MEDICAL HISTORY Diagnosis Date Allergic rhinitis 10/18/2010 Atrial fibrillation (HCC) Diabetes mellitus type 2 (HCC) 02/20/2014 HTN (hypertension) 10/18/2010 Hyperlipidemia MALT lymphoma (HCC) Gastric Migraine with visual aura 05/16/2012 Obstructive sleep apnea Cannot tolerate CPAP Renal stone 02/21/2008 PAST SURGICAL HISTORY Procedure Laterality Date EGD EXERCISE STRESS TEST WITH NUCLEAR IMAGES PANEL 02/20/2013 abnormal execise stress NUCLEAR EXERCISE STRESS TEST 02/20/2013 normal PAST SURGICAL HISTORY OF 2 arthroscopies of the L knee, and open surgeries for intrinsic derangement PAST SURGICAL HISTORY OF removal of renal stone ( not sure of the method) PAST SURGICAL HISTORY OF fibula-tibiaotomy of the L PAST SURGICAL HISTORY OF right knee arthroscopy and reconstruction RECONSTRUCTION ROTATOR CUFF AVULSION CHRONIC 07/21/2010 left Prior to Admission medications as of 08/12/24 1218 Medication Sig Last Dose Taking cholecalciferol, vitD3,/vit K2 (VITAMIN D3-VITAMIN K2 ORAL) Take by mouth. ascorbic acid (VITAMIN C ORAL) Take by mouth. C/sourcherry/celery/gra pe seed (TART ACOSTA ORAL) Take by mouth. BLUEBERRY APPLE CIDER VINEGAR ORAL Take by mouth. VITAMIN B COMPLEX ORAL Take by mouth. levothyroxine (SYNTHROID) 50 mcg tablet Take 50 mcg by mouth once daily. OTC NUTRITIONAL SUPPLEMENT once daily. QC Turmeric Apolic Acid Bererdine with Cylon Cinnamon Zinc MCT Oil ALLERGIES Allergen Reactions Percocet [Oxycodone* Intolerance Ultram [Tramadol Hc* Intolerance Vicodin [Hydrocodon* Other: See Comments Objective PHYSICAL EXAM: The remainder of the physical exam is noncontributory. AIRWAY: LUNGS: Lungs clear to auscultation CARDIAC: Regular rhythm,Regular rate Assessment/Plan ASA Class: Active Problems: * No active hospital problems. * Resolved Problems: * No resolved hospital problems. * Medication and Non-Pharmacologic VTE Prophylaxis/Anticoagula nts VTE Prophylaxis: not indicated for procedure Provisional Diagnosis/Treatment Plan: EGD with biopsy Consent has been signed Sedation Goal: Anesthesia Erin Rivera MD 08/12/2024 12:30 PM Normal [facility] NURSING PROGon 08-12-2024 NURSING PROG HNO ID: [id number] Author: SAMANTHA VARGAS RN Service: ? Author Type: Registered Nurse Type: Nursing Progress Note Filed: 08/12/2024 13:16 Note Text: AMBULATORY PATIENT EDUCATION NOTE TOPIC: GI PROCEDURES: Esophagogastroduodenosc opy(EGD) with or without biopies based on clinical findings, removal of polyps or lesions READINESS TO LEARN INSTRUCTION PROVIDED TO: Patient and family member COGNITIVE ABILITY: Alert and oriented PTED MOTIVATION TO LEARN: Interested FAMILY SUPPORT: High - Very involved in pt care IPATIENT LEARNS BEST BY: Individual Instruction Written Instruction - Hand-outs Verbal Instruction FACTORS AFFECTING LEARNING: None PHYSICAL LIMITATIONS AFFECTING LEARNING: None LEARNING RESPONSE METHOD OF INSTRUCTION: Individual instruction PATIENT / FAMILY RESPONSE: Verbalizes understanding of: WORSENING CONDITION-Signs and symptoms of a worsening condition that warrant a call to the physician FOLLOW-UP PLAN: Patient instructed to call with any further issues Recommend - Recommend continued instruction and follow up as directed Contact information given. SUPPLEMENTAL MATERIAL: Procedure Discharge Instructions REFERRAL (RECOMMENDATION): None Electronically Signed By: Samantha Vragas RN Normal [facility] NURSING PROG HNO ID: [id number] Author: SARITA SAUCEDA RN Service: Gastroenterology Author Type: Registered Nurse Type: Nursing Progress Note Filed: 08/12/2024 12:20 Note Text: PRE OP LEARNING ASSESSMENT PROCEDURE/SURGERY: GI PROCEDURES: EGD READINESS TO LEARN COGNITIVE ABILITY: Alert and oriented MOTIVATION TO LEARN: Eager Interested FAMILY SUPPORT: High - Very involved in pt care PATIENT LEARNS BEST BY: Individual Instruction Written Instruction - Hand-outs Verbal Instruction FACTORS AFFECTING LEARNING: None PHYSICAL LIMITATIONS AFFECTING LEARNING: None Electronically Signed By: SARITA Sauceda RN In Department: GASTROENTEROLOGY Normal [facility] Pathology biopsy report Edward (Tiss)on 08-12-2024 AP DISCLAIMER Normal [facility] Comment on above: Order Comment: Speci men Type: TISSUE SPECIMENOrdering Facility: [facility] Address: [address] [place] [address] Result Comment: Sulma alejandre Developed Test (LDT) Disclaimer: Performance characteristics of immunohistochemical, immunofluorescent, and chromogenic in-situ hybridization tests have been determined by the performing laboratory within [facility] Path[facility] and Laboratory Medicine Department ([facility], [facility], [facility], [facility], [facility], [facility], or [facility]) in a manner consistent with CLIA requirements. One or more of these tests may not have been cleared or approved by the FDA. [facility] is regulated under CLIA as qualified to perform high-complexity testing. These tests are used for clinical purposes. These should not be regarded as investigational or for research. Positive and negative controls stain appropriately. Performed By: #### 6 6121-5 ####[facility] [id number] [place] [address] [place] CASE REPORT Normal [facility] Comment on above: Order Comment: Speci men Type: TISSUE SPECIMENOrdering Facility: [facility] Address: [address] [place] [address] Result Comment: Surg [facility] Pathology Report Case: [id number] Authorizing Provider: Erin Rivera MD Collected: 08/12/2024 12:48 PM Ordering Location: Gastroenterology Received: 08/12/2024 06:01 PM Pathologist: Radha Todd MD Specimens: A) - Stomach, Antrum, Biopsy, Less Curvature, Hx MALT lymphoma B) - Stomach, Antrum, Biopsy, Greater curvature, Hx MALT lymphoma C) - Stomach, Biopsy, Incisura, Hx MALT lymphoma D) - Stomach, Fundus, Biopsy, Greater Curvature, Hx MALT Lymphoma E) - Stomach, Fundus, Biopsy, Less Curvature, Hx MALT lymphoma Performed By: #### 6 6121-5 ####[facility] [id number] [address] DIAGNOSIS COMMENT Normal [facility] Comment on above: Order Comment: Speci yolette Type: TISSUE SPECIMENOrdering Facility: [facility] Address: [address] [place] [address] Result Comment: Ther e is no morphologic evidence of Helicobacter pylori organisms. The findings overall are most consistent with complete histologic remission according to the RADHA histological criteria. Reference: Ebenezer Morrison, Samira KERR, Nato Morrison, et al. RADHA histological scoring system for post-treatment biopsies of patients with gastric MALT lymphoma is feasible and reliable in routine practice. Br J Haematol. 2013;160(1):47-52. Performed By: #### 6 6121-5 ####[id number] [address] FINAL DIAGNOSIS Normal [facility] Comment on above: Order Comment: Speccarolyn de la vega Type: TISSUE SPECIMENOrdering Facility: [facility] Address: [address] [place] [address] Result Comment: A. S tomach, antrum, lesser curvature, biopsy: - Reactive gastropathy with rare plasma cells, lamina propria fibrosis, and focal intestinal metaplasia, negative for dysplasia. B. Stomach, antrum, greater curvature, biopsy: - Reactive gastropathy with rare plasma cells, lamina propria fibrosis, and focal intestinal metaplasia, negative for dysplasia. C. Stomach, incisura, biopsy: - Reactive gastropathy with a single small lymphoid aggregate, negative for intestinal metaplasia. D. Stomach, fundus, grater curvature, biopsy: - Reactive gastropathy with no significant inflammation, negative for intestinal metaplasia. E. Stomach, fundus, lesser curvature, biopsy: - Oxyntic mucosa with mild reactive change and no significant inflammation, negative for intestinal metaplasia. - See comment. at 1641 EDT Performed By: #### 6 6121-5 ####[facility] [id number] [address] OF [facility] FINAL PERFORMING LAB Normal [facility] Comment on above: Order Comment: Speci men Type: TISSUE SPECIMENOrdering Facility: [facility] Address: [address] [place] [address] Result Comment: Diag nostic interpretation performed at: [facility], [address] [place] [address], [facility] [place] [address] CLIA# [id number] Publishing Manager: Ramiro Gutierrez MD Performed By: #### 6 6121-5 ####[facility] [id number] [address] [place] GROSS DESCRIPTION Normal [facility] Comment on above: Order Comment: Speci men Type: TISSUE SPECIMENOrdering Facility: [facility] Address: [address] [place] [address] Result Comment: A. S tomach, Antrum, Biopsy Received in formalin are two pieces of wright, soft tissue aggregating to 0.8 x 0.2 x 0.2 cm. Totally submitted in one cassette. B. Stomach, Antrum, Biopsy Received in formalin are two pieces of wright, soft tissue aggregating to 0.7 x 0.2 x 0.1 cm. Totally submitted in one cassette. C. Stomach, Biopsy Received in formalin is one piece of wright, soft tissue measuring 0.7 x 0.2 x 0.1 cm. Totally submitted in one cassette. D. Stomach, Fundus, Biopsy Received in formalin are multiple pieces of wright, soft tissue aggregating to 1.3 x 0.2 x 0.2 cm. Totally submitted in one cassette. E. Stomach, Fundus, Biopsy Received in formalin are two pieces of wright, soft tissue aggregating to 0.7 x 0.1 x 0.1 cm. Totally submitted in one cassette. Gross examination performed at [facility], [address] [place] [address] FFS 08/13/2024 12:10 AM Performed By: #### 6 6121-5 ####[facility] [id number] [place] [id number] [place] NURSING PROGon 08-05-2024 NURSING PROG HNO ID: [id number] Author: VLADIMIR SARAVIA RN Service: ? Author Type: Registered Nurse Type: Nursing Progress Note Filed: 08/05/2024 17:05 Note Text: Attempted to reach the patient at the contact number that they provided [phone] (home) . Unable to speak with patient so without identifying the patient the following information was left on their voice mail: Date of procedure, location and report time A message was left informing the patient/patient senior sales representative they must have a responsible adult accompany them to their procedure; and remain in the endoscopy area until they are discharged. Failure to have a responsible adult accompany the patient to their procedure appointment prevents the use of sedation or anesthesia for their procedure; and can result in cancellation of the procedure NPO instructions were reviewed. Instructions to contact their primary care provider regarding their medications and which medications to stop in preparation for their procedure Instructions to completely read and follow the written instructions that they recieved regarding their procedure. Number to call with questions or concerns [phone] Number to call to cancel their procedure [phone] Vladimir Saravia RN Normal [facility] PSA, TOTALon 05-21-2024 PSA, TOTAL 8.29 ng/mL High < OR = 4.00 [facility] Comment on above: Order Comment: FASTI NG:NO FASTING: NO Result Comment: The total PSA value from this assay system is standardized against the WHO standard. The test result will be approximately 20% lower when compared to the equimolar-standardized total PSA (Jacklyn Pritesh). Comparison of serial PSA results should be interpreted with this fact in mind. This test was performed using the Siemens chemiluminescent method. Values obtained from different assay methods cannot be used interchangeably. PSA levels, regardless of value, should not be interpreted as absolute evidence of the presence or absence of disease. Performed By: #### 5 363 #### [facility] [address], [address] [place] [address] Plaque Maker: Lucien Morocho MD SURG PATH REQUESTon 03-29-19 Case Report Normal [place] Comment on above: Result Comment: Surg ical Pathology Report Case: [id number] Authorizing Provider: DOMINIC Vigil Collected: 03/29/2024 11:04 AM [facility] Received: 03/29/2024 11:04 AM SHANIA Pathologist: Em Casanova MD Specimen: SURG PATH, Prostate biopsies Performed By: #### S URGP #### [facility] (DEFAULT) [address] [place] [address] Gross Description Normal [facility] Comment on above: Result Comment: The following material(s) are received from [facility], [address] [place] [address] with an identifying Surgical Pathology Report: 24 H&E slide(s), 5 non-H&E slide(s) labeled [id number]. Subsequently received on April 19, 2024 from the same facility are 5 unstained (C1) slides marked [id number], which are submitted to the [facility] histology/IHC laboratory for staining. Outside pathology materials are returned in sixty (60) days under separate cover with our number recorded on them. Grosser for this case was: Zainab Weathers Performed By: #### S URGP #### [facility] (DEFAULT) [address] [place] [address] Microscopic Description Normal [place] Comment on above: Result Comment: A mi croscopic examination was performed. All controls show appropriate reactivity. All immunohistochemistry (IHC), in situ hybridization (GASTON), and histochemical tests were developed by and are performed at the [facility] Clinical Laboratory, Histology and IHC Lab, [address] [place] [address]. All Immunofluorescent (IF) tests were developed by and are performed at the [facility] Laboratory, Renal Division, [address] [place] [address]. All tests reported here, except for PD-L1, have not been cleared by or approved by the US Food and Drug Administration (FDA). The laboratory is regulated under CLIA as qualified to perform high-complexity testing. The tests are used for clinical purposes. They should not be regarded as investigational or for research. Performed By: #### S URGP #### [facility] (DEFAULT) [address] [place] [address], [place] [address] Pathologic Diagnosis Normal [place] Comment on above: Result Comment: Outs franklin Slides: [id number] (11/14/23) Prostate, needle biopsy, left paramedian apex: Prostatic adenocarcinoma, Carlos score 3+3=6, involving 1 of 1 core and 7% of the tissue Prostate, needle biopsy, left paramedian base: Prostatic adenocarcinoma, Carlos score 3+4=7, involving 1 of 1 core and 30% of the tissue (5% of the tumor is Milford pattern 4) Prostate, needle biopsy, left posterior apex: Prostatic adenocarcinoma, Milford score 3+4=7, involving 1 of 1 core and 20% of the tissue (5% of the tumor is Milford pattern 4) Immunohistochemical results: positive AMACR; negative p63, CK5 Prostate, needle biopsy, left posterior base: Prostatic adenocarcinoma, Carlos score 3+3=6, involving 1 of 1 core and 5% of the tissue Prostate, needle biopsy, left lateral: Prostate tissue with no significant pathologic change Prostate, needle biopsy, left anterior: Prostate tissue with no significant pathologic change Prostate, needle biopsy, right paramedian apex: Prostate tissue with no significant pathologic change Prostate, needle biopsy, right paramedian base: Small focus of atypical glands suspicious for prostatic adenocarcinoma Prostate, needle biopsy, right posterior apex: Prostate tissue with no significant pathologic change Prostate, needle biopsy, right posterior base: Prostate tissue with no significant pathologic change Prostate, needle biopsy, right lateral: Prostate tissue with no significant pathologic change Prostate, needle biopsy, right anterior: Prostate tissue with no significant pathologic change Comment: PSA 6.57 ng/mL on 09/05/2023 per the electronic medical record. Dr. Amaya has reviewed senior sales representative slides. at 1232 EST Performed By: #### S URGP #### [facility] (DEFAULT) [address] [place] [address] Professional Interpretation Performed at: [facility] Comment on above: Result Comment: [facility] For Immediate Release to Patient's [facility]? Yes [address] [address] Performed By: #### S URGP #### [facility] (DEFAULT) [address] [address] PSA,Total- Diagnosticon 02- PSA, DIAGNOSTIC 7.97 ng/mL High 0.0-4.0 [facility] Comment on above: Result Comment: This test was performed using the TPSA assay method for the [employer] chemistry system. Values obtained with different assay methods cannot be used interchangably. When changing PSA assays in the course of monitoring a patient, additional sequential testing should be carried out to confirm baseline values. Performed By: #### L 501.9940, L501.9520 #### [facility] [address] [place], [address] Thyroid Stim Hormone (TSH)on 03-28-2024 TSH 3.340 uIU/mL Normal 0.358-3.740 [facility] Comment on above: Performed By: #### L 501.9940, L501.9520 #### [facility] [address] [place], [address] UR Microalbumin/Creatinine R atio Randomon 03-13-2024 Microalbumin/creatini ne Ratio see below Normal 0.0-30.0 [facility] Comment on above: Result Comment: - UR Microalbumin concentration is less than 1.2 mg/dL. - Unable to calculate Microalbumin/Creatinine Ratio without a Microalbumin concentration. Performed By: #### U MACR #### [facility] [address] [place] [address] UR Creatinine Random 64.7 mg/dL Normal Not [facility] Comment on above: Performed By: #### U MACR #### [facility] [address] [place] [address] UR Microalbumin Random <1.20 Normal Not [facility] Comment on above: Performed By: #### U MACR #### [facility] [address] [place] [address] CNOVSPon 02-19-2024 CNOVSP Visit (SP) Office ([facility]) JENNIFER TIDWELL ([id number]) [address] [facility] Date Time Provider Department 02/19/24 11:50 AM BRAYDON TELLEZ During your visit today, we recorded the following information about you: Temperature Pulse Respiration Blood pressure 97.5 degrees 61/minute 16/minute 139/68 Weight 70.7 kg Braydon Tellez MD 02/19/2024 3:52 PM Signed HEMATOLOGY/ONCOLOGY Jennifer Tidwell returns for a follow up EGD/colon performed 02/17/[address] Rivera who ordered Treatment for H pylori 02/24/23: bismuth subsalicylate 262 mg po qid; doxycycline hyclate 100 mg po bid; metronidazole 250 mg po qid; pantoprazole 40 mg po bid. The patient did not take bismuth subsalicylate (only a few doses b/o he is diabetic); therefore he then took Clarithromycin triple therapy 03/07/23. Cardiology referral for atrial fibrillation noted during the procedure. He states he has new diagnosis of prostate cancer Carlos 3+3 in October 2023, Dr. Busby (). He is on surveillance. Interim history: Denies bleeding, CP, abdominal pain, headaches, fevers, night sweats or unwanted weight loss. No nausea, vomiting, diarrhea or GI bleed. PMHx, PSHX, FHx and ROS are documented in Psychiatric. All of these were reviewed and verified with patient. Father had prostate cancer and DM. Denies FH of breast, ovarian, pancreatic cancer. Review Of Systems: All systems reviewed with pertinent positives and negatives as outlined in the HPI. Physical Examination: BP 139/68 Pulse 61 Temp 36.4 ?C (97.5 ?F) (Temporal) Resp 16 Wt 70.7 kg (155 lb 12.1 oz) SpO2 99% BMI 23.00 kg/m? On exam, he appears to be comfortable, in no acute distress. Vitals: see above. Alert and oriented x3. Heart with regular rhythm. No enlarged lymphadenopathy. Abdomen is soft. No hepatosplenomegaly. Lower extremities: No edema. Neuro exam: Nonfocal Labs: Latest Reference Range AND Units Most Recent Interpretation (MPA) Atypical restricted bands are present in the IgG and kappa regions. Consistent with IgG kappa monoclonal gammopathy. 07/06/23 12:05 Interpretation (Prot Electro) No definitive M protein is identified on protein electrophoresis. An M protein is identified on protein electrophoresis. ! 07/06/23 12:05 Interpretation (Urine Electro) No definitive M protein is identified on protein electrophoresis. No definitive M protein is identified on protein electrophoresis. 07/06/23 12:30 Interpretation Comment for Protein Electrophoresis See separate immunofixation report for characterization of monoclonal gammopathy. 07/06/23 12:05 K/L Ratio, Serum 0.26 - 1.65 1.89 (H) 07/06/23 12:05 [place] Free, Serum 3.3 - 19.4 mg/L 20.4 (H) 07/06/23 12:05 Lambda Free, Serum 5.7 - 26.3 mg/L 10.8 07/06/23 12:05 MPA Result No M protein is identified. M protein is present. ! 07/06/23 12:05 M-Protein Concentration <=0.00 g/dL 0.37 (H) 07/06/23 12:05 03/15/23 Bone marrow, aspirate, touch imprint, clot section and core biopsy: - Normocellular marrow (30%) with trilineage hematopoiesis. - Adequate megakaryocytes. - Stainable iron present without ring sideroblasts. - Plasma cell hyperplasia with slightly increased kappa:lambda ratio (see comment). - No evidence of marrow involvement by lymphoma (see comment). There is no evidence of involvement by a lymphoproliferative disorder or abnormal blast population. Correlation with the clinical and bone marrow histopathologic findings is suggested. 02/17/23 A. 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 - Gastric antral mucosa with chronic active gastritis. - Positive for H. pylori microorganisms (morphologically confirmed on ANDREY sections). Interphase fluorescence in situ hybridization (FISH) was negative for a rearrangement involving the MALT1 gene (18q21.32). Diagnosis Comment ANDREY-stained sections in part A reveal gastric antral mucosa with chronic active gastritis and a diffuse vaguely nodular lymphoid infiltrate composed of small mature lymphocytes with abundant cytoplasm, slightly irregular nuclear contours, and intermixed plasma cells. Multifocally, these lymphocytes are infiltrating mucus glands, compatible with lymphoepithelial lesions. H. pylori organisms are also identified on the ANDREY section. Immunohistochemical stains were performed at [facility] on block A1. A significant majority (80%) of the lymphocytes are atypical B cells, positive for CD20 and CD43. CD3 and CD5 highlight far fewer, scattered background T lymphocytes. FISH testing for a MALT1 rearrangement Addendum Interphase fluorescence in situ hybridization (FISH) was negative for a rearrangement involving the MALT1 gene (18q21.32). 02/17/23 EGD: Impression: - Normal hypopharyn (more content not included)... Normal [facility] CBC W Auto Differential pane l (Bld)on 02-16-2024 Basophils (Bld) [#/Vol] 0.03 10*3/uL Normal <0.11 [facility] Comment on above: Order Comment: Speci men Type: BLOOD SPECIMEN Ordering Facility: [facility] Address: [address] [place] [address] Performed By: #### 5 7021-8 #### [facility] CLIA [id number] [address] [place] [address] [place] Basophils/100 WBC (Bld) 0.5 % Normal [facility] Comment on above: Order Comment: Speci men Type: BLOOD SPECIMEN Ordering Facility: [facility] Address: [address] [place] [address] Performed By: #### 5 7021-8 #### [facility] CLIA [id number] [address] [place] [address] [place] Differential cell count method Nom (Bld) Auto Normal [facility] Comment on above: Order Comment: Speci men Type: BLOOD SPECIMEN Ordering Facility: [facility] Address: [address] [place] [address] Performed By: #### 5 7021-8 #### [facility] CLIA [id number] [address] [place] [address] [place] Eosinophils (Bld) [#/Vol] 0.11 10*3/uL Normal <0.46 [facility] Comment on above: Order Comment: Speci men Type: BLOOD SPECIMEN Ordering Facility: [facility] Address: [address] [place] [address] Performed By: #### 5 7021-8 #### [facility] CLIA [id number] [address] [place], [place] [address] [place] Eosinophils/100 WBC (Bld) 1.7 % Normal [facility] Comment on above: Order Comment: Speci men Type: BLOOD SPECIMEN Ordering Facility: [facility] Address: [address] [place] [address] Performed By: #### 5 7021-8 #### [facility] CLIA [id number] [address] [place] [address] [place] Erythrocyte distribution width (RBC) [Ratio] 12.8 % Normal 11.5-15.0 [facility] Comment on above: Order Comment: Speci men Type: BLOOD SPECIMEN Ordering Facility: [facility] Address: [address] [place] [address] Performed By: #### 5 7021-8 #### [facility] CLIA [id number] [address] [place] [address] [place] Hematocrit (Bld) [Volume fraction] 42.5 % Normal 39.0-51.0 [facility] Comment on above: Order Comment: Speci men Type: BLOOD SPECIMEN Ordering Facility: [facility] Address: [address] [place] [address] Performed By: #### 5 7021-8 #### [facility] CLIA [id number] [address] [place] [address] [place] Hemoglobin (Bld) [Mass/Vol] 14.3 g/dL Normal 13.0-17.0 [facility] Comment on above: Order Comment: Speci men Type: BLOOD SPECIMEN Ordering Facility: [facility] Address: [address] [place] [address] Performed By: #### 5 7021-8 #### [facility] CLIA [id number] [address] [place] [address] [place] Immature granulocytes (Bld) [#/Vol] 0.04 10*3/uL Normal <0.10 [facility] Comment on above: Order Comment: Speci men Type: BLOOD SPECIMEN Ordering Facility: [facility] Address: [address] [place] [address] Performed By: #### 5 7021-8 #### [facility] CLIA [id number] [address] [place] [address] [place] Immature granulocytes/100 WBC (Bld) 0.6 % Normal [facility] Comment on above: Order Comment: Speci men Type: BLOOD SPECIMEN Ordering Facility: [facility] Address: [address] [place] [address] Performed By: #### 5 7021-8 #### [facility] CLIA [id number] [address] [place] [address] [place] Lymphocytes (Bld) [#/Vol] 1.74 10*3/uL Normal 1.00-4.00 [facility] Comment on above: Order Comment: Speci men Type: BLOOD SPECIMEN Ordering Facility: [facility] Address: [address] [place] [address] Performed By: #### 5 7021-8 #### [facility] CLIA [id number] [address] [place] [address] [place] Lymphocytes/100 WBC (Bld) 26.2 % Normal [facility] Comment on above: Order Comment: Speci men Type: BLOOD SPECIMEN Ordering Facility: [facility] Address: [address] [place] [address] Performed By: #### 5 7021-8 #### [facility] CLIA [id number] [address] [place], [place] [address] [place] MCH (RBC) [Entitic mass] 29.9 pg Normal 26.0-34.0 [facility] Comment on above: Order Comment: Speci men Type: BLOOD SPECIMEN Ordering Facility: [facility] Address: [address] [place] [address] Performed By: #### 5 7021-8 #### [facility] CLIA [id number] [address] [place] [address] [place] MCHC (RBC) [Mass/Vol] 33.6 g/dL Normal 30.5-36.0 [facility] Comment on above: Order Comment: Speci men Type: BLOOD SPECIMEN Ordering Facility: [facility] Address: [address] [place] [address] Performed By: #### 5 7021-8 #### [facility] CLIA [id number] [address] [place] [address] [place] MCV (RBC) [Entitic vol] 88.7 fL Normal 80.0-100.0 [facility] Comment on above: Order Comment: Speci men Type: BLOOD SPECIMEN Ordering Facility: [facility] Address: [address] [place] [address] Performed By: #### 5 7021-8 #### [facility] CLIA [id number] [address] [place] [address] [place] Monocytes (Bld) [#/Vol] 0.59 10*3/uL Normal <0.87 [facility] Comment on above: Order Comment: Speci men Type: BLOOD SPECIMEN Ordering Facility: [facility] Address: [address] [place] [address] Performed By: #### 5 7021-8 #### [facility] CLIA [id number] [address] [place] [address] [facility] Monocytes/100 WBC (Bld) 8.9 % Normal [facility] Comment on above: Order Comment: Speci men Type: BLOOD SPECIMEN Ordering Facility: [facility] Address: [address] [place] [address] Performed By: #### 5 7021-8 #### [facility] CLIA [id number] [address] [place] [address] [place] Neutrophils (Bld) [#/Vol] 4.12 10*3/uL Normal 1.45-7.50 [facility] Comment on above: Order Comment: Speci men Type: BLOOD SPECIMEN Ordering Facility: [facility] Address: [address] [place] [address] Performed By: #### 5 7021-8 #### [facility] CLIA [id number] [address] [place] [address] [place] Neutrophils/100 WBC (Bld) 62.1 % Normal [facility] Comment on above: Order Comment: Speci men Type: BLOOD SPECIMEN Ordering Facility: [facility] Address: [address] [place] [address] Performed By: #### 5 7021-8 #### [facility] CLIA [id number] [address] [place] [address] [place] Nucleated RBC (Bld) [#/Vol] 10*3/uL Normal <0.01 [facility] Comment on above: Order Comment: Speci men Type: BLOOD SPECIMEN Ordering Facility: [facility] Address: [address] [place] [address] Performed By: #### 5 7021-8 #### [facility] CLIA [id number] [address] [place] [address] [place] Nucleated RBC/100 WBC (Bld) [Ratio] 0.0 /100 WBC Normal [facility] Comment on above: Order Comment: Speci men Type: BLOOD SPECIMEN Ordering Facility: [facility] Address: [address] [place] [address] Performed By: #### 5 7021-8 #### [facility] CLIA [id number] [address] [place] [address] [place] Platelet mean volume (Bld) [Entitic vol] 9.4 fL Normal 9.0-12.7 [facility] Comment on above: Order Comment: Speci men Type: BLOOD SPECIMEN Ordering Facility: [facility] Address: [address] [place] [address] Performed By: #### 5 7021-8 #### [facility] CLIA [id number] [address] [place] [id number] [place] [address] [place] Platelets (Bld) [#/Vol] 164 10*3/uL Normal 150-400 [facility] Comment on above: Order Comment: Speci men Type: BLOOD SPECIMEN Ordering Facility: [facility] Address: [address] [place] [address] Performed By: #### 5 7021-8 #### [facility] CLIA [id number] [address] [place] [address] [place] RBC (Bld) [#/Vol] 4.79 10*6/uL Normal 4.20-6.00 [facility] Comment on above: Order Comment: Speci men Type: BLOOD SPECIMEN Ordering Facility: [facility] Address: [address] [place] [address] Performed By: #### 5 7021-8 #### [facility] CLIA [id number] [address] [place] [address] [place] WBC (Bld) [#/Vol] 6.63 10*3/uL Normal 3.70-11.00 [facility] Comment on above: Order Comment: Speci men Type: BLOOD SPECIMEN Ordering Facility: [facility] Address: [address] [place] [address] Performed By: #### 5 7021-8 #### [facility] CLIA [id number] [address] [place] [address] [facility] [place] Comprehensive metabolic 2000 panelon 02-16-2024 Albumin [Mass/Vol] 4.4 g/dL Normal 3.9-4.9 [facility] Comment on above: Order Comment: Speci men Type: BLOOD SPECIMEN Ordering Facility: [facility] Address: [address] [place] [address] Performed By: #### 5 7021-8 #### [facility] CLIA [id number] [address] [place] [address] [place] ALP [Catalytic activity/Vol] 59 U/L Normal 38-113 [facility] Comment on above: Order Comment: Speci men Type: BLOOD SPECIMEN Ordering Facility: [facility] Address: [address] [place] [address] Performed By: #### 5 7021-8 #### [facility] CLIA [id number] [address] [place] [address] [place] ALT [Catalytic activity/Vol] 43 U/L Normal 10-54 [facility] Comment on above: Order Comment: Speci men Type: BLOOD SPECIMEN Ordering Facility: [facility] Address: [address] [place] [address] Performed By: #### 5 7021-8 #### [facility] CLIA [id number] [address] [place] [address] [place] Anion gap [Moles/Vol] 3 mmol/L Low 8-15 [facility] Comment on above: Order Comment: Speci men Type: BLOOD SPECIMEN Ordering Facility: [facility] Address: [address] [place] [address] Performed By: #### 5 7021-8 #### [facility] CLIA [id number] [address] [place] [address] [place] AST [Catalytic activity/Vol] 27 U/L Normal 14-40 [facility] Comment on above: Order Comment: Speci men Type: BLOOD SPECIMEN Ordering Facility: [facility] Address: [address] [place] [address] Performed By: #### 5 7021-8 #### [facility] CLIA [id number] [address] [place], [place] [address] [place] Bilirubin [Mass/Vol] 0.7 mg/dL Normal 0.2-1.3 [facility] Comment on above: Order Comment: Speci men Type: BLOOD SPECIMEN Ordering Facility: [facility] Address: [address] [place] [address] Performed By: #### 5 7021-8 #### [facility] CLIA [id number] [address] [place] [address] [place] Calcium [Mass/Vol] 9.7 mg/dL Normal 8.5-10.2 [facility] Comment on above: Order Comment: Speci men Type: BLOOD SPECIMEN Ordering Facility: [facility] Address: [address] [place] [address] Performed By: #### 5 7021-8 #### [facility] CLIA [id number] [address] [place] [address] [place] Chloride [Moles/Vol] 105 mmol/L Normal 98-107 [facility] Comment on above: Order Comment: Speci men Type: BLOOD SPECIMEN Ordering Facility: [facility] Address: [address] [place] [address] Performed By: #### 5 7021-8 #### [facility] CLIA [id number] [address] [place] [address] [place] CO2 [Moles/Vol] 30 mmol/L Normal 22-30 [facility] Comment on above: Order Comment: Speci men Type: BLOOD SPECIMEN Ordering Facility: [facility] Address: [address] [place] [id number] Performed By: #### 5 7021-8 #### [facility] CLIA [id number] [address] [place] [address] [place] Creatinine [Mass/Vol] 1.00 mg/dL Normal 0.73-1.22 [facility] Comment on above: Order Comment: Speci men Type: BLOOD SPECIMEN Ordering Facility: [facility] Address: [address] [place] [address] Performed By: #### 5 7021-8 #### [facility] CLIA [id number] [address] [place] [address] [place] Creatinine and Glomerular filtration rate.predicted panel (S/P/Bld) 79 mL/min/1.73m??? Normal >=60 [facility] Comment on above: Order Comment: [place] de [place] vega Type: BLOOD SPECIMEN Ordering Facility: [facility] Address: [address] [place] [address] Result Comment: Tami mated Glomerular Filtration Rate (eGFR) is calculated using the 2020 CKD-EPI creatinine equation. This equation utilizes serum creatinine, sex, and age as parameters. The creatinine assay has traceable calibration to isotope dilution-mass spectrometry. Refer to KDIGO guidelines for clinical interpretation. In patients with unstable renal function, e.g. those with acute kidney injury, the eGFR may not accurately reflect actual GFR. Performed By: #### 5 7021-8 #### [facility] CLIA [id number] [address] [place] [address] [place] Glucose [Mass/Vol] 121 mg/dL High 74-99 [facility] Comment on above: Order Comment: [place] Type: BLOOD SPECIMEN Ordering Facility: [facility] Address: [address] [place] [address] Result Comment: The [place] Diabetes Association (ADA) provides guidance for cutoff values for fasting glucose and random glucose. The ADA defines fasting as no caloric intake for at least 8 hours. Fasting plasma glucose results between 100 to 125 mg/dL indicate increased risk for diabetes (prediabetes). Fasting plasma glucose results greater than or equal to 126 mg/dL meet the criteria for diagnosis of diabetes. In the absence of unequivocal hyperglycemia, results should be confirmed by repeat testing. In a patient with classic symptoms of hyperglycemia or hyperglycemic crisis, random plasma glucose results greater than or equal to 200 mg/dL meet the criteria for diagnosis of diabetes. Reference: Standards of Medical Care in Diabetes 2016, [place] [employer] Association. Diabetes Care. 2016.39(Suppl 1). Performed By: #### 5 7021-8 #### [facility] CLIA [id number] [address] [place] [address] [place] Potassium [Moles/Vol] 4.5 mmol/L Normal 3.7-5.1 [facility] Comment on above: Order Comment: [place] ve[place] Type: BLOOD SPECIMEN Ordering Facility: [facility] Address: [address] [place] [address] Performed By: #### 5 7021-8 #### [facility] CLIA [id number] [address] [place], [place] [address] [place] Protein [Mass/Vol] 7.1 g/dL Normal 6.3-8.0 [facility] Comment on above: Order Comment: Speci men Type: BLOOD SPECIMEN Ordering Facility: [facility] Address: [address] [place] [address] Performed By: #### 5 7021-8 #### [facility] CLIA [id number] [address] [place], [place] [address] [place] Sodium [Moles/Vol] 138 mmol/L Normal 136-144 [facility] Comment on above: Order Comment: Speci men Type: BLOOD SPECIMEN Ordering Facility: [facility] Address: [facility] [place] [address] Performed By: #### 5 7021-8 #### [facility] CLIA [id number] [address] [place] [address] [place] Urea nitrogen [Mass/Vol] 27 mg/dL High 9-24 [facility] Comment on above: Order Comment: Speci men Type: BLOOD SPECIMEN Ordering Facility: [facility] Address: [facility] [place] [address] Performed By: #### 5 7021-8 #### [facility] CLIA [id number] [address] [place], [place] [address] [place] ANES POSTPROC EVALon 024 ANES POSTPROC EVAL HNO ID: [id number] Author: BEV GAYTAN MD Service: ? Author Type: Anesthesiologist Type: Anesthesia Postprocedure Evaluation Filed: 02/05/2024 16:40 Note Text: POST ANESTHESIA EVALUATION NOTE : 1950 Procedure Summary Date: 02/05/24 Room / Location: Gastroenterology Anesthesia Start: 1331 Anesthesia Stop: 1406 Procedure: EGD DIAGNOSTIC Diagnosis: MALT lymphoma (Surveillance procedure) Scheduled Providers: Erin Rivera MD; Drew Johnsno APRN.GLOBE MOUNTER; Bev Gaytan MD Responsible Provider: Bev Gaytan MD Anesthesia Type: general ASA Status: 3 Anesthesia Type: general Airway Type: anesthesia mask, supplemental O2 Last Vitals Vitals Value Taken Time BP 109/62 02/05/24 1420 Temp 36.5 ?C (97.7 ?F) 02/05/24 1406 HR SpO2 61 02/05/24 1423 Resp 16 02/05/24 1420 SpO2 98 % 02/05/24 1423 Vitals shown include unfiled device data. Post Anesthesia Patient Status Patient Evaluation: PACU. PACU/ICU Patient Condition: stable. Neurological Status: aware and responsive. Pulmonary Status: breathing comfortably on supplemental oxygen Airway Control: returned to baseline unsupported. Cardiovascular Status: stable. Pain Management: clinically adequate Postoperative Hydration: acceptable. Intraoperative Events: no significant anesthesia events Post Operative Nausea/Vomiting Status: no significant post operative nausea or vomiting Recommendation: continue current plan of care and further care per PACU/ICU/floor team. Anesthesia Observations No Documentation SIGNATURE: Bev Gaytan MD PATIENT NAME: Jennifer Tidwell DATE: February 05, 2024 TIME: 4:40 PM CSN: [id number] Normal [facility] ANES PRE-OPon 02-05-2024 ANES PRE-OP HNO ID: [id number] Author: BEV GAYTAN MD Service: ? Author Type: Anesthesiologist Type: Anesthesia Preprocedure Evaluation Filed: 02/05/2024 13:22 Note Text: ANESTHESIOLOGY DAY OF SURGERY NOTE : 1950 Procedure Information Date/Time: 02/05/24 1300 Scheduled providers: Erin Rivera MD; Drew Johnson APRN.GLOBE MOUNTER; Bev Gaytan MD Procedure: EGD DIAGNOSTIC Location: Gastroenterology Estimated body mass index is 22.45 kg/m? as calculated from the following: Height as of this encounter: 175.3 cm (5' 9). Weight as of this encounter: 68.9 kg (152 lb). Most recent hematocrit and potassium results: Hematocrit 41.6 07/06/2023 Potassium 4.7 07/06/2023 Relevant Problems ANESTHESIA (+) ALLISON (obstructive sleep apnea) CARDIO (+) HTN (hypertension) (+) Migraine with visual aura ENDO (+) Hypothyroidism -RENAL (+) Renal stone NEURO-PSYCH (+) Migraine with visual aura PULMONARY (+) ALLISON (obstructive sleep apnea) Other (+) Arthritis of right foot (+) Capsulitis of metatarsophalangeal (MTP) joint of right foot I - PHYSICAL EVALUATION AIRWAY Patient intubated: No. Tracheostomy tube not present Mallampati: I. TM distance: >3 FB. Neck ROM: full ROM without neurological symptoms. Mouth opening: adequate. Short neck: no. Thick neck: no DENTAL Dentures, upper: partial. Dentures, lower: partial. Additional exam findings: no II - ANESTHESIA PLAN ASA Score: 3 Anesthetic Plan: general Airway type: anesthesia mask Beta Dalia Monitoring Plan Monitoring plan: standard ASA. Post Procedure Analgesic Plan Informed Consent Anesthetic risks, benefits, alternatives, personnel and consent discussed: yes. Patient / Responsible Alliance Party agrees to proceed: yes Patient / Surrogate agrees to blood products: Yes Significant changes in the patient condition since the History and Physical, not otherwise documented in primary service progress note: no. Vitals Value Taken Time BP 120/81 02/05/24 1253 Pulse 71 02/05/24 1253 Resp 16 02/05/24 1253 Temp 36.4 ?C (97.5 ?F) 02/05/24 1253 SpO2 98 % 02/05/24 1253 Outpatient Medications as of 02/05/2024 Medication Sig cholecalciferol, vitD3,/vit K2 (VITAMIN D3-VITAMIN K2 ORAL) Take by mouth. ascorbic acid (VITAMIN C ORAL) Take by mouth. C/sourcherry/celery/gra pe seed (TART ACOSTA ORAL) Take by mouth. BLUEBERRY APPLE CIDER VINEGAR ORAL Take by mouth. VITAMIN B COMPLEX ORAL Take by mouth. levothyroxine (SYNTHROID) 50 mcg tablet Take 50 mcg by mouth once daily. OTC NUTRITIONAL SUPPLEMENT once daily. QC Turmeric Apolic Acid Bererdine with Cylon Cinnamon Zinc MCT Oil Facility-Administered Medications as of 02/05/2024 Medication Dose Route Frequency lidocaine (PF) 10 mg/mL (1 %) 1-2 mg injection (XYLOCAINE) 0.1-0.2 mL INTRADERMAL PRN lactated ringers iv infusion 30 mL/hr INTRAVENOUS CONTINUOUS I have interviewed and examined the patient. I have reviewed the medical record and/or the pre-anesthesia evaluation, pertinent labs, and test results. This contains updated information obtained within 48 hours of Surgery/Procedure. SIGNATURE: Bev Gaytan MD PATIENT NAME: Jennifer Tidwell DATE: February 05, 2024 TIME: 1:22 PM CSN: [id number] Normal [facility] EGD Study observation Narrat iveon 02-05-2024 [facility] Radiology Study observation (narrative) [facility] GLUCOSE, BLOOD (POC)on 02-04 Glucose [Mass/Vol] 109 mg/dL Abnormal 74 - 99 mg/dL [facility] Comment on above: Location:[facility], [address] [place] [address] The Accu-Chek Inform II glucose meter has not been approved for testing on patients receiving intensive medical intervention or therapy and results from this point of care glucose test should not be used for patient management decisions in these cases. Inaccurate results may also occur from other interfering factors, such as N-acetylcysteine (blood concentrations of greater than 5mg/dL), galactose, extremes of hematocrit (<10 or >65), or high doses of ascorbic acid (vitamin C) greater than 3mg/dL. Consider alternate testing mechanisms (e.g. core lab, blood gas instrument) in the above situations. Interpretation and review of laboratory results Abnormal [facility] HISTORY PHYSICALon HISTORY PHYSICAL HNO ID: [id number] Author: ERIN RIVERA MD Service: General Surgery Author Type: Physician Type: H&P Filed: 02/05/2024 13:12 Note Text: ENDOSCOPY HISTORY AND PHYSICAL EXAM Jennifer Tidwell [id number] Subjective HPI: This is a 72 year old male who presents for endoscopy. He has a history of hypertension, diabetes and sleep apnea. He was evaluated outpatient gastroenterology clinic in fall 2022 for a complaint of burning/coughing sensation in his throat with coffee or other triggers but without dysphagia or odynophagia. An EGD in 01/2023 demonstrated H pylori infection and mild MALT lymphoma. He is due for surveillance endoscopy. PAST ANESTHESIA HISTORY: stomach cramps with fentanyl PAST MEDICAL HISTORY Diagnosis Date Allergic rhinitis 10/18/2010 Atrial fibrillation (HCC) Diabetes mellitus type 2 (HCC) 02/20/2014 HTN (hypertension) 10/18/2010 Hyperlipidemia MALT lymphoma Gastric Migraine with visual aura 05/16/2012 Obstructive sleep apnea Cannot tolerate CPAP Renal stone 02/21/2008 PAST SURGICAL HISTORY Procedure Laterality Date EGD EXERCISE STRESS TEST WITH NUCLEAR IMAGES PANEL 02/20/2013 abnormal execise stress NUCLEAR EXERCISE STRESS TEST 02/20/2013 normal PAST SURGICAL HISTORY OF 2 arthroscopies of the L knee, and open surgeries for intrinsic derangement PAST SURGICAL HISTORY OF removal of renal stone ( not sure of the method) PAST SURGICAL HISTORY OF fibula-tibiaotomy of the L PAST SURGICAL HISTORY OF right knee arthroscopy and reconstruction RECONSTRUCTION ROTATOR CUFF AVULSION CHRONIC 07/21/2010 left Prior to Admission medications as of 02/05/24 1311 Medication Sig Last Dose Taking cholecalciferol, vitD3,/vit K2 (VITAMIN D3-VITAMIN K2 ORAL) Take by mouth. ascorbic acid (VITAMIN C ORAL) Take by mouth. C/sourcherry/celery/gra pe seed (TART ACOSTA ORAL) Take by mouth. BLUEBERRY APPLE CIDER VINEGAR ORAL Take by mouth. VITAMIN B COMPLEX ORAL Take by mouth. levothyroxine (SYNTHROID) 50 mcg tablet Take 50 mcg by mouth once daily. OTC NUTRITIONAL SUPPLEMENT once daily. QC Turmeric Apolic Acid Bererdine with Cylon Cinnamon Zinc MCT Oil ALLERGIES Allergen Reactions Percocet [Oxycodone* Intolerance Ultram [Tramadol Hc* Intolerance Vicodin [Hydrocodon* Other: See Comments Objective PHYSICAL EXAM: The remainder of the physical exam is noncontributory. AIRWAY: LUNGS: Lungs clear to auscultation CARDIAC: Regular rhythm, Assessment/Plan ASA Class: Active Problems: * No active hospital problems. * Resolved Problems: * No resolved hospital problems. * Medication and Non-Pharmacologic VTE Prophylaxis/Anticoagula nts VTE Prophylaxis: not indicated for procedure Provisional Diagnosis/Treatment Plan: EGD with biopsy Consent has been signed Sedation Goal: Anesthesia Erin Rivera MD 02/05/2024 1:12 PM Normal [facility] NURSING PROGon 02-05-2024 NURSING PROG HNO ID: [id number] Author: AFRICA COFFEY, RN Service: Nursing Author Type: Registered Nurse Type: Nursing Progress Note Filed: 02/05/2024 14:11 Note Text: AMBULATORY PATIENT EDUCATION NOTE TOPIC: GI PROCEDURES: Esophagogastroduodenosc opy(EGD) with or without biopies based on clinical findings, removal of polyps or lesions READINESS TO LEARN INSTRUCTION PROVIDED TO: Patient, readness to learn accessed prior to procedure and Family member COGNITIVE ABILITY: Alert and oriented PTED MOTIVATION TO LEARN: Interested FAMILY SUPPORT: High - Very involved in pt care IPATIENT LEARNS BEST BY: Individual Instruction Written Instruction - Hand-outs Verbal Instruction FACTORS AFFECTING LEARNING: None PHYSICAL LIMITATIONS AFFECTING LEARNING: None LEARNING RESPONSE METHOD OF INSTRUCTION: Individual instruction PATIENT / FAMILY RESPONSE: Verbalizes understanding of: WORSENING CONDITION-Signs and symptoms of a worsening condition that warrant a call to the physician FOLLOW-UP PLAN: Patient instructed to call with any further issues Recommend - Recommend continued instruction and follow up as directed Contact information given. SUPPLEMENTAL MATERIAL: Procedure Discharge Instructions REFERRAL (RECOMMENDATION): None Electronically Signed By: Africa Coffey RN Normal [facility] NURSING PROG HNO ID: [id number] Author: JUVENTINO BILL LPN Service: Gastroenterology Author Type: LICENSED NURSE Type: Nursing Progress Note Filed: 02/05/2024 12:55 Note Text: PRE OP LEARNING ASSESSMENT PROCEDURE/SURGERY: GI PROCEDURES: EGD READINESS TO LEARN COGNITIVE ABILITY: Alert and oriented MOTIVATION TO LEARN: Eager FAMILY SUPPORT: High - Very involved in pt care PATIENT LEARNS BEST BY: Individual Instruction FACTORS AFFECTING LEARNING: None PHYSICAL LIMITATIONS AFFECTING LEARNING: None Electronically Signed By: Juventino Bill LPN In Department: GASTROENTEROLOGY Normal [facility] SURGICAL PATHOLOGYon CASE REPORT Normal [facility] Comment on above: Order Comment: Speci men Type: TISSUE SPECIMENOrdering Facility: [facility] Address: [address] [place] [address] Result Comment: Surg ica Pathology Report Case: [id number] Authorizing Provider: Erin Rivera MD Collected: 02/05/2024 01:42 PM Ordering Location: Gastroenterology Received: 02/05/2024 05:49 PM Pathologist: Bernard Horton MD Specimens: A) - Stomach, Antrum, Biopsy, Antrum Lesser Curve B) - Stomach, Antrum, Biopsy, Antrum Greater Curve C) - Stomach, Biopsy, Gastric Body Greater Curvature D) - Stomach, Biopsy, Gastric Body Lesser Curve E) - Stomach, Biopsy, Incisura F) - Stomach, Biopsy, Gastric Body Adjacent to Ulcer Performed By: #### S ####[facility] [id number] [address] DIAGNOSIS COMMENT Normal [facility] Comment on above: Order Comment: Speci men Type: TISSUE SPECIMENOrdering Facility: [facility] Address: [address] [place] [address] Result Comment: A-F. 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 There is no morphologic evidence of lymphoma in these biopsies. F. A gastrin stain is positive, confirming the presence of antral mucosa. A chromogranin stain highlights a normal distribution of endocrine cells within the antrum. An immunostain for Helicobacter is negative. Laboratory Developed Test (LDT) Disclaimer: Performance characteristics of immunohistochemical, immunofluorescent and chromogenic in-situ hybridization tests have been determined by the performing laboratory within [facility]???s Jennifer [facility] ([facility], [facility], [facility], [facility], [facility], [facility], or [facility]) in a manner consistent with CLIA requirements. One or more of these tests have not been cleared or approved by the FDA. [facility] is regulated under CLIA as qualified to perform high-complexity testing. These tests are used for clinical purposes. They should not be regarded as investigational or for research. Positive and negative controls stain appropriately. Performed By: #### S ####[facility] [id number] [address] FINAL DIAGNOSIS Normal [facility] Comment on above: Order Comment: Speci men Type: TISSUE SPECIMENOrdering Facility: [facility] Address: [address] [place] [address] Result Comment: Duy S tomach, antrum, lesser curve, biopsy: - Antral mucosa with reactive gastropathy. - No morphologic evidence of Helicobacter. B. Stomach, antrum, greater curve, biopsy: - Antral mucosa with reactive gastropathy. - No morphologic evidence of Helicobacter. C. Stomach, body, greater curvature, biopsy: - Corpus mucosa with patchy chronic inactive gastritis. - No morphologic evidence of Helicobacter. D. Stomach, body, lesser curve, biopsy: - Corpus mucosa with patchy chronic inactive gastritis. - No morphologic evidence of Helicobacter. E. Stomach, incisura, biopsy: - Antral mucosa with chronic inactive gastritis. - No morphologic evidence of Helicobacter. F. Stomach, 'body adjacent to ulcer,' biopsy: - Antral mucosa with reactive changes. - No morphologic evidence of Helicobacter. Performed By: #### S ####[facility] [id number] [place] [address] [place] [facility] FINAL PERFORMING LAB Normal [facility] Comment on above: Order Comment: Speci men Type: TISSUE SPECIMENOrdering Facility: [facility] Address: [address] [place] [address] Result Comment: Diag nostic interpretation performed at [facility], [address] [place] [address] CLIA# [id number] Publishing Manager: Ramiro Gutierrez M.D. Performed By: #### S ####[facility] [id number] [address] STATES [place] [facility] GROSS DESCRIPTION Normal [facility] Comment on above: Order Comment: Speci men Type: TISSUE SPECIMENOrdering Facility: [facility] Address: [address] [place] [address] Result Comment: A. S tomach, Antrum, Biopsy Received in formalin are two pieces of wright, soft tissue aggregating to 0.8 x 0.3 x 0.1 cm. Totally submitted in one cassette. B. Stomach, Antrum, Biopsy Received in formalin is one piece of wright, soft tissue measuring 0.4 x 0.3 x 0.1 cm. Totally submitted in one cassette. C. Stomach, Biopsy Received in formalin are two pieces of wright, soft tissue aggregating to 0.9 x 0.2 x 0.1 cm. Totally submitted in one cassette. D. Stomach, Biopsy Received in formalin are two pieces of wright, soft tissue aggregating to 0.8 x 0.3 x 0.1 cm. Totally submitted in one cassette. E. Stomach, Biopsy Received in formalin are two pieces of wright, soft tissue aggregating to 0.8 x 0.3 x 0.1 cm. Totally submitted in one cassette. F. Stomach, Biopsy Received in formalin are two pieces of wright, soft tissue aggregating to 0.9 x 0.2 x 0.1 cm. Totally submitted in one cassette. DB February 05, 2024 7:19 PM Gross examination performed at [facility], [facility] [place] [address] Performed By: #### S ####[facility] [id number] [id number] [place] [address] [place] HISTORY PHYSICALon HISTORY PHYSICAL HNO ID: [id number] Author: KAIT MONTIEL APRN.YARD CALLER Service: ? Author Type: Nurse Practitioner Type: H&P Filed: 02/01/2024 13:09 Note Text: [facility] HISTORY AND PHYSICAL EXAMINATION SERVICE DATE: 02/01/2024 SERVICE TIME: 12:52 PM Patient has been identified by name and date of : Yes Reason for contact: PACC visit Accompanied by: Self This is a virtual visit using [employer] Supervisor Video Call. It required patient-provider interaction for the medical decision making as documented below. I have communicated my name and active licensure. The patient's identity and physical location were verified at the time of this visit. Either the patient or their legal senior sales representative has been informed of the risks and benefits of and alternatives to treatment through a remote evaluation and consents to proceed with the evaluation remotely. PRIMARY CARE PHYSICIAN: Jerel Bennett APRN.YARD CALLER REASON FOR VISIT: Jennifer Tidwell is a 73 year old male who is scheduled for at the request of Dr. Erin Rivera for consultation. My final recommendation will be communicated back to the requesting physician by way of shared medical record or letter. 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 Following with gastro and oncology Prostate cancer (HCC) Assessment: Milford 6/grade group 1 pT1c adenocarcinoma the prostate Follows with Dr. Busby at -- active surveillance currently Franco Activity Status Index: METS: Walk indoors, such as around the house (1.75 METs) Do light work around the house, such as dusting or washing dishes (2.70 METs) Take care of self; that is eating, dressing, bathing, using the toilet (2.75 METs) Walk a block or two on level ground (2.75 METs) Do moderate work around the house, such as vacuuming, sweeping floors, or carrying in groceries (3.50 METs) Do yardwork, such as raking leaves, weeding, or pushing a power mower (4.50 METs) Climb a flight of stairs or walk up a hill (5.50 METs) Do heavy work around the house, such as scrubbing floors, lifting or moving heavy furniture (8.00 METs) DASI Score: 31.45 Patient denies any chest pain or undue shortness of breath with the above physical activity. Clinical Frailty Scale: 3. Well, with treated comorbid disease STOP-Bang Score: STOP-Bang Score: (+ ALLISON- does not use CPAP ) [id number] Score: Age: 65-74 Sex: male Diabetes history: Yes [id number] Score: ANESTHESIA FINDINGS: Intubation History: No history of difficult intubation Significant Anesthesia Considerations: none Airway History: No history of difficult airway I - PHYSICAL EVALUATION AIRWAY Patient intubated: No. Tracheostomy tube not present Mallampati: II. TM distance: >3 FB. Neck ROM: full ROM without neurological symptoms. Mouth opening: adequate. Short neck: no. Thick neck: no DENTAL Dentures, upper: partial. Dentures, lower: partial. II - ANESTHESIA PLAN Anesthetic plan additional comments: *PACC/TCI - anesthesia choice. Beta Dalia Monitoring Plan Post Procedure Analgesic Plan Prepared for surgery: This patient is optimally prepared for surgery. CONSULTS: Patient does not require consults for optimization at this time. The Following Tests/Procedures Have Been Initiated: No orders of the defined types were placed in this encounter. Planned Anesthetic: Per anesthesia choice Subjective CHIEF COMPLAINT: Pre-op visit HPI: 73 year old male with gastric MALT associated with lymphoma seen on biopsy 02/17/2023. EGD with biopsy-negative for NHL on 07/24/[address] Rivera. Scheduled for repeat biopsy for evaluation REVIEW OF SYSTEMS: PAIN ASSESSMENT: General: No weight loss, malaise or fevers. Neuro: No history of TIA's, stroke, COUNTY SUPERVISOR tumor, impaired sensorium, hemiplegia, paraplegia or quadraplegia. No neurological symptoms or problems. Respiratory: No history of current cough or dyspnea, or pneumonia in the past 6 weeks. No history of respiratory/pulmonary symptoms or problems. + ALLISON - does not use CPAP Cardiovascular: Negative for Recent DE, CAD, Chest Pain Hx of AFIB during previous EGD GI: See HPI : + prostate cancer - monitored by urology Endocrine: Diabetes Mellitus with diet control Hematology: No history of bleeding or clotting disorder. Pt is not taking anti-coagulation or platelet medications. No history of hematological symptoms or problems. Oncology: See HPI Implanted Devices: No Psych: No history of psychiatr (more content not included)... Normal [facility] NURSING PROGon 01-29-2024 NURSING PROG HNO ID: [id number] Author: JAYNE MARTINEZ RN Service: ? Author Type: Registered Nurse Type: Nursing Progress Note Filed: 01/29/2024 10:45 Note Text: GI Pre-Procedure Spoke with patient: Yes Confirmed date scheduled and patient report time: Yes Procedure Planned:Esophagogastrod uodenoscopy(EGD) with or without biopies based on clinical findings, removal of polyps or lesions Is the patient on blood thinners?no Procedure Instructions given to patient: Yes, and they verbalized their understanding of instructions given Patient instructed to have family/friend present for procedure transport home:Patient/patient senior sales representative was told that if they do not have a responsible adult accompany them to their procedure; and remain in the endoscopy area until they are discharged; that their procedure cannot be done with sedation or anesthesia and may be cancelled. and They verbalized their understanding and agree to have a responsible adult accompany the patient to their procedure and remain in the endoscopy area. Any barriers to Patient learning: Patient/Patient Hide Grader responded appropriately on phone. Type of instruction given: Verbal by telephone contact. Normal [facility] Glucose Test strip manual (B ld) [Mass/Vol]on 11-14-2023 Glucose [Mass/Vol] 113 mg/dL High 74 - 99 mg/dL [facility] Interpretation and review of laboratory results Abnormal [facility] Glucose [Mass/Vol] 113 mg/dL High 74-99 [facility] Comment on above: Performed By: #### 2 341-6 #### LEYLA AGUILAR ([id number]) [facility] ([facility]) [address] [place] [address] Glucose [Mass/Vol] 103 mg/dL High 74 - 99 mg/dL [facility] Interpretation and review of laboratory results Abnormal [facility] Glucose [Mass/Vol] 103 mg/dL High 74-99 [facility] Comment on above: Performed By: #### 2 341-6 #### LEYLA AGUILAR ([id number]) [facility] ([facility]) [address] [place] [address] Surgical pathology studyon 0 11-14-2023 Surgical pathology study Pathology report.total SEE COMMENT Surgical Pathology Case: [id number] Authorizing Provider: Russell Gale MD Collected: 11/14/2023 0852 Ordering Location: [facility] Received: 11/14/2023 1015 Pathologist: Anna De La Rosa MD Specimens: A) - PROSTATE NEEDLE BIOPSY LEFT, Left Paramedian Freedom B) - PROSTATE NEEDLE BIOPSY LEFT, Left Paramedian Base C) - PROSTATE NEEDLE BIOPSY LEFT, Left Posterior Freedom D) - PROSTATE NEEDLE BIOPSY LEFT, Left Posterior Base E) - PROSTATE NEEDLE BIOPSY LEFT, Left Lateral F) - PROSTATE NEEDLE BIOPSY LEFT, Left Anterior G) - PROSTATE NEEDLE BIOPSY RIGHT, Right Paramedian Freedom H) - PROSTATE NEEDLE BIOPSY RIGHT, Right Paramedian Base I) - PROSTATE NEEDLE BIOPSY RIGHT, Right Posterior Freedom J) - PROSTATE NEEDLE BIOPSY RIGHT, Right Posterior Base K) - PROSTATE NEEDLE BIOPSY RIGHT, Right Lateral L) - PROSTATE NEEDLE BIOPSY RIGHT, Right Anterior Path report.final diagnosis SEE COMMENT A. PROSTATE, NEEDLE BIOPSY, LEFT PARAMEDIAN APEX: -- Prostatic adenocarcinoma, Milford score 3+3=6, Grade Group 1, involving 1 of 1 core and approximately 5% of the overall specimen. See note. Note: PIN4 immunostain cocktail (including p63, [id number] and AMACR) shows loss of basal cells, confirming the diagnosis of adenocarcinoma. B. PROSTATE, NEEDLE BIOPSY, LEFT PARAMEDIAN BASE: -- Discontinuous foci of prostatic adenocarcinoma, Carlos score 3+3=6, Grade Group 1, involving 1 of 1 core and approximately 50% of the overall specimen. See note. Note: PIN4 immunostain cocktail (including p63, [id number] and AMACR) shows loss of basal cells, confirming the diagnosis of adenocarcinoma. C. PROSTATE, NEEDLE BIOPSY, LEFT POSTERIOR APEX: -- Prostatic tissue with no evidence of malignancy. D. PROSTATE, NEEDLE BIOPSY, LEFT POSTERIOR BASE: -- Minute focus of prostatic adenocarcinoma, Carlos score 3+3=6, Grade Group 1, involving 1 of 1 core and less than 5% of the overall specimen. See note. Note: PIN4 immunostain cocktail (including p63, [id number] and AMACR) shows loss of basal cells, confirming the diagnosis of adenocarcinoma. E. PROSTATE, NEEDLE BIOPSY, LEFT LATERAL: -- Prostatic tissue with no evidence of malignancy. F. PROSTATE, NEEDLE BIOPSY, LEFT ANTERIOR: -- Prostatic tissue with no evidence of malignancy. G. PROSTATE, NEEDLE BIOPSY, RIGHT PARAMEDIAN APEX: -- Prostatic tissue with no evidence of malignancy. H. PROSTATE, NEEDLE BIOPSY, RIGHT PARAMEDIAN BASE: -- Rare atypical glands, suspicious for adenocarcinoma. See note. Note: A small focus of atypical glands is identified and is devoid of basal cells by immunohistochemistry (PIN4 cocktail including p63, [id number] and AMACR). Although atypical, there is insufficient evidence to establish a definitive diagnosis of adenocarcinoma. I. PROSTATE, NEEDLE BIOPSY, RIGHT POSTERIOR APEX: -- Prostatic tissue with no evidence of malignancy. J. PROSTATE, NEEDLE BIOPSY, RIGHT POSTERIOR BASE: -- Prostatic tissue with no evidence of malignancy. K. PROSTATE, NEEDLE BIOPSY, RIGHT LATERAL: -- Prostatic tissue with no evidence of malignancy. See note. Note: PIN4 immunostain cocktail (including p63, [id number] and AMACR) shows preserved basal cells, confirming the above diagnosis. L. PROSTATE, NEEDLE BIOPSY, RIGHT ANTERIOR: -- Prostatic tissue with no evidence of malignancy. Laboratory comment By the signature on this report, the individual or group listed as making the Final Interpretation/Diagnosi s certifies that they have reviewed this case. Path report.relevant Hx SEE COMMENT Pre-op diagnosis: Elevated PSA [R97.20] Path report.gross observation SEE COMMENT A: Received in formalin, labeled with the patient's name and hospital number and L, paramedian apex, is one cylindrical fragment of wright soft tissue measuring 1.5 cm, in length by less than 0.1 cm in diameter. The specimen is submitted in toto in one cassette. BMG/SBS B: Received in formalin, labeled with the patient's name and hospital number and L, paramedian base, is one cylindrical fragment of wright soft tissue measuring 1.8 cm, in length by less than 0.1 cm in diameter. The specimen is submitted in toto in one cassette. BMG/SBS C: Received in formalin, labeled with the patient's name and hospital number and left posterior apex, is one cylindrical fragment of wright soft tissue measuring 1.6 cm, in length by less than 0.1 cm in diameter. The specimen is submitted in toto in one cassette. BMG/SBS D: Received in formalin, labeled with the patient's name and hospital number and L, left posterior base, is one cylindrical fragment of wright soft tissue measuring 1.7 cm, in length by less than 0.1 cm in diameter. The specimen is submitted in toto in one cassette. BMG/SBS E: Received in formalin, labeled with the patient's name and hospital number and L, left lateral, are two cylindrical fragments of wright soft tissue me (more content not included)... [facility] Comment on above: Order Comment: Pre-o p diagnosis: Elevated PSA [R97.20] XR FOOT 3V AP/LAT/OBL BILon 10-03-2023 XR FOOT 3V AP/LAT/OBL SU * * *Final Report* * * DATE OF EXAM: Oct 03 2023 11:03AM LNX [id number] - XR FOOT 3V AP/LAT/OBL SU / PROCEDURE REASON: Pain * * * * Physician Interpretation * * * * FOOT RADIOGRAPHS - BILATERAL HISTORY: Pain TECHNOLOGIST PROVIDED HISTORY (if applicable): chronic su foot pain rt worse plantar aspect of forefoot unsteady gait TECHNIQUE: XR FOOT 3V AP/LAT/OBL SU COMPARISON: None available RESULT: Bone mineralization appears normal. Right foot: There are no visualized articular erosions in the foot. No focal bony abnormality is identified. Joint spaces are preserved, and there is no soft tissue swelling. Left foot: There are no visualized articular erosions in the foot. No focal bony abnormality is identified. Joint spaces are preserved, and there is no soft tissue swelling. Bilateral pes planus and calcaneal spurs IMPRESSION: 1. No acute radiographic abnormality of the bilateral feet Solid Plasterer: [facility] Transcribe Date/Time: Oct 03 2023 12:17P Dictated by : J CARLOS BARROSO MD This examination was interpreted and the report reviewed and electronically signed by: J CARLOS BARROSO MD on Oct 03 2023 12:18PM EST [id number] Normal [facility] XR Foot - bilateral AP and L ateral and obliqueon 10-03-2023 IMPRESSION: 1. No acute radiographic abnormality of the bilateral feet Solid Plasterer: [facility] Transcribe Date/Time: Oct 03 2023 12:17P Dictated by : J CARLOS BARROSO MD This examination was interpreted and the report reviewed and electronically signed by: J CARLOS BARROSO MD on Oct 03 2023 12:18PM EST DIVISION OF RADIOLOGY * * *Final Report* * * DATE OF EXAM: Oct 03 2023 11:03AM LNX 5555 - XR FOOT 3V AP/LAT/OBL SU / PROCEDURE REASON: Pain * * * * Physician Interpretation * * * * FOOT RADIOGRAPHS - BILATERAL HISTORY: Pain TECHNOLOGIST PROVIDED HISTORY (if applicable): chronic su foot pain rt worse plantar aspect of forefoot unsteady gait TECHNIQUE: XR FOOT 3V AP/LAT/OBL SU COMPARISON: None available RESULT: Bone mineralization appears normal. Right foot: There are no visualized articular erosions in the foot. No focal bony abnormality is identified. Joint spaces are preserved, and there is no soft tissue swelling. Left foot: There are no visualized articular erosions in the foot. No focal bony abnormality is identified. Joint spaces are preserved, and there is no soft tissue swelling. Bilateral pes planus and calcaneal spurs DIVISION OF RADIOLOGY Provider, Yue Dickerson - 10/03/2023 * * *Final Report* * * DATE OF EXAM: Oct 03 2023 11:03AM LNX 5555 - XR FOOT 3V AP/LAT/OBL SU / PROCEDURE REASON: Pain * * * * Physician Interpretation * * * * FOOT RADIOGRAPHS - BILATERAL HISTORY: Pain TECHNOLOGIST PROVIDED HISTORY (if applicable): chronic su foot pain rt worse plantar aspect of forefoot unsteady gait TECHNIQUE: XR FOOT 3V AP/LAT/OBL SU COMPARISON: None available RESULT: Bone mineralization appears normal. Right foot: There are no visualized articular erosions in the foot. No focal bony abnormality is identified. Joint spaces are preserved, and there is no soft tissue swelling. Left foot: There are no visualized articular erosions in the foot. No focal bony abnormality is identified. Joint spaces are preserved, and there is no soft tissue swelling. Bilateral pes planus and calcaneal spurs IMPRESSION IMPRESSION: 1. No acute radiographic abnormality of the bilateral feet Solid Plasterer: MARCO A Transcribe Date/Time: Oct 03 2023 12:17P Dictated by : J CARLOS BARROSO MD This examination was interpreted and the report reviewed and electronically signed by: J CARLOS BARROSO MD on Oct 03 2023 12:18PM [facility] Radiology Study observation (narrative) [facility] XR Foot - bilateral AP and L ateral and obliqueOrdered By: [facility] Provider on 10-03-2023 [facility]BET Information SystemsIsaura) JENNIFER TIDWELL ([id number]) [address] [facility] Date Time Provider Department 09/12/23 ERIN RIVERA During your visit today, we recorded the following information about you: Rajesh Ramos 09/12/2023 1:14 PM Signed Pt called state that insurance advise him that they was not going to pay for the anesthesia and he needs to get a not from Dr. Rivera office say when he needed anesthesia. Return call [phone] Latisha Webster RN 09/14/2023 12:42 PM Signed [facility] COORDINATION TELEPHONE ENCOUNTER CC returned patient's call to address request for letter supporting medical necessity for anesthesia for most recent EGD. Number given to patient for endoscopy to speak with their billing team. Staff message sent to Dr. Rivera to request a letter of medical necessity. Latisha DUONG, RN DDSI/[facility] Surgical Tight Barrel Inspector Allergies As of Date: 09/12/2023 Noted Allergy Reaction PERCOCET (OXYCODONE-ACETAMINOPHE N)10/18/2010 5 - Intolerance ULTRAM (TRAMADOL HCL) 10/18/2010 5 - Intolerance VICODIN (HYDROCODONE-ACETAMINOP HE*10/18/2010 14 - Other: See Comments Date Reviewed: 09/08/2023 Reviewed by: Katt Jimenez DPM - Fully Assessed Reason for Visit: Patient Question [1437] Prescriptions as of 09/14/2023 - cholecalciferol, vitD3,/vit K2 (VITAMIN D3-VITAMIN K2 ORAL) Take by mouth. - ascorbic acid (VITAMIN C ORAL) Take by mouth. - C/sourcherry/celery/gra pe seed (TART ACOSTA ORAL) Take by mouth. - BLUEBERRY - APPLE CIDER VINEGAR ORAL Take by mouth. - VITAMIN B COMPLEX ORAL Take by mouth. - levothyroxine (SYNTHROID) 50 mcg tablet Take 50 mcg by mouth once daily. - OTC NUTRITIONAL SUPPLEMENT once daily. QC Turmeric Apolic Acid Bererdine with Cylon Cinnamon Zinc MCT Oil Meds Comments as of 05/29/2014: saline nasal spray, multi vitamin plus minerals and herbs Problem List As Of Date 09/12/2023 Noted Resolved Allergic rhinitis [J30.9] 10/18/2010 Renal stone [N20.0] 10/18/2010 FH: diabetes mellitus [Z83.3] 10/18/2010 HTN (hypertension) [I10] 10/18/2010 Hypogonadism male [E29.1] 10/20/2011 Fatigue [R53.83] 10/20/2011 Low serum cortisol level [R79.89] 10/20/2011 05/16/2012 Family history of prostate cancer [Z80.42] 10/20/2011 ALLISON (obstructive sleep apnea) [G47.33] 02/07/2012 Impaired fasting glucose [R73.01] 02/09/2012 Other and unspecified hyperlipidemia [E78.5] 02/09/2012 Metabolic syndrome [E88.810] 02/09/2012 Migraine with visual aura [G43.109] 05/16/2012 Corneal foreign body [T15.00XA] 04/22/2016 Haskins neuroma, 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] 12/20/2021 Capsulitis of metatarsophalangeal (MTP) joint o*12/20/2021 Pain in right foot [M79.671] 12/20/2021 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 Values obtained with different assay methods must not be used interchangeably. This test was performed at [facility] using the [employer] PSA assay is a two-site immunoenzymatic sandwich assay. The assay is approved for measurement of prostate-specific antigen (PSA)in serum and may be used in conjunction with a digital rectal examination in men 50 years and older as an aid in detection of prostate cancer. 0-Rhbst-yzxrnezhr inhibitors (e.g. Proscar, Finasteride, Avodart, Dutasteride and Dominique) for the treatment of BPH have been shown to lower PSA levels by an average of 50% after 6 months of treatment. Performed By: #### 2 857-1 #### LUIS FERNANOD DIAS ([id number]) [facility] ([facility]) [address] [place] [address] CBC AND ELECTRONIC DIFFon Basophils (Bld) [#/Vol] 0.04 10*3/uL 0.00 - 0.09 K/uL [facility] Basophils/100 WBC (Bld) 0.6 % [facility] Differential cell count method Nom (Bld) Electronic Differential [facility] Eosinophils (Bld) [#/Vol] 0.15 10*3/uL 0.00 - 0.48 K/uL [facility] Eosinophils/100 WBC (Bld) 2.3 % [facility] Erythrocyte distribution width (RBC) [Ratio] 12.1 % 10.9 - 14.3 % [facility] Hematocrit (Bld) [Volume fraction] 41.9 % 39.6 - 48.8 % [facility] Hemoglobin (Bld) [Mass/Vol] 13.6 g/dL 13.4 - 16.8 g/dL [facility] Immature granulocytes (Bld) [#/Vol] K/uL NINF - 0.07 K/uL [facility] Immature granulocytes/100 WBC (Bld) 0.5 % [facility] Lymphocytes (Bld) [#/Vol] 1.49 10*3/uL 0.83 - 3.57 K/uL [facility] Lymphocytes/100 WBC (Bld) 22.6 % [facility] MCH (RBC) [Entitic mass] 28.9 pg 26.1 - 33.3 pg [facility] MCHC (RBC) [Mass/Vol] 32.5 g/dL 31.9 - 36.5 g/dL [facility] MCV (RBC) [Entitic vol] 89.1 fL 79.0 - 94.5 fL [facility] Monocytes (Bld) [#/Vol] 0.65 10*3/uL 0.24 - 0.93 K/uL [facility] Monocytes/100 WBC (Bld) 9.8 % [facility] Neutrophils (Bld) [#/Vol] 4.24 10*3/uL 1.57 - 6.19 K/uL [facility] Nucleated RBC/100 WBC (Bld) [Ratio] 0.0 % NINF [facility] Platelet mean volume (Bld) [Entitic vol] 9.6 fL 8.7 - 12.3 fL [facility] Platelets (Bld) [#/Vol] 151 10*3/uL 146 - 337 K/uL [facility] RBC (Bld) [#/Vol] 4.70 10*6/uL [facility] Segmented neutrophils/100 WBC (Bld) 64.2 % [facility] WBC (Bld) [#/Vol] 6.60 10*3/uL 3.73 - 10. 10 K/uL [facility] Basophils (Bld) [#/Vol] 0.04 10*3/uL Normal 0.00-0.09 [place] Comment on above: Order Comment: [place] Performed By: #### L [id number] #### [facility] (DEFAULT) [address] [address] Basophils/100 WBC (Bld) 0.6 % Normal [place] Comment on above: Order Comment: [place] Performed By: #### L [id number] #### [facility] (DEFAULT) [address] [address] DIFF STATUS Electronic Differential Normal [place] Comment on above: Order Comment: [place] Performed By: #### L [id number] #### [facility] (DEFAULT) [address] [place] [address] Eosinophils (Bld) [#/Vol] 0.15 10*3/uL Normal 0.00-0.48 [place] Comment on above: Order Comment: [place] Performed By: #### L [id number] #### [facility] (DEFAULT) [address] [address] Eosinophils/100 WBC (Bld) 2.3 % Normal [place] Comment on above: Order Comment: [place] Performed By: #### L [id number] #### [facility] (DEFAULT) [address] [place] [address]01 Hematocrit (Bld) [Volume fraction] 41.9 % Normal 39.6-48.8 [place] Comment on above: Order Comment: [place] Performed By: #### L [id number] #### [facility] (DEFAULT) [address] [place] [address]371 Hemoglobin (Bld) [Mass/Vol] 13.6 g/dL Normal 13.4-16.8 [place] Comment on above: Order Comment: [place] Performed By: #### L AB980 #### [facility] (DEFAULT) [address] [place] [address] 78252 Immature Grans % 0.5 % Normal [facility] Comment on above: Order Comment: [place] Performed By: #### L AB980 #### [facility] (DEFAULT) [address] [place] [address] Immature Grans Absolute < Normal <=0.07 [place] Comment on above: Order Comment: [place] Performed By: #### L [id number] #### [facility] (DEFAULT) [address] [place] [address] 25987 Lymphocytes (Bld) [#/Vol] 1.49 10*3/uL Normal 0.83-3.57 [place] Comment on above: Order Comment: [place] Performed By: #### L AB980 #### [facility] (DEFAULT) [address] [place] [address]13 Lymphocytes/100 WBC (Bld) 22.6 % Normal [place] Comment on above: Order Comment: [place] Performed By: #### L AB980 #### [facility] (DEFAULT) [address] [place] [address] 22178 MCV (RBC) [Entitic vol] 89.1 fL Normal 79.0-94.5 [place] Comment on above: Order Comment: [place] Performed By: #### L AB980 #### [facility] (DEFAULT) [address] [place] [address] 87974 Mean Cell Hgb 28.9 pg Normal 26.1-33.3 [place] Comment on above: Order Comment: [place] Performed By: #### L AB980 #### [facility] (DEFAULT) [address] [place] [address] 21984 Mean Cell Hgb Conc 32.5 g/dL Normal 31.9-36.5 [facility] Comment on above: Order Comment: [place] Performed By: #### L AB980 #### [facility] (DEFAULT) [address] [place] [address]24 Monocytes (Bld) [#/Vol] 0.65 10*3/uL Normal 0.24-0.93 [place] Comment on above: Order Comment: [place] Performed By: #### L AB980 #### [facility] (DEFAULT) [address] [place] [address] 28636 Monocytes/100 WBC (Bld) 9.8 % Normal [place] Comment on above: Order Comment: [place] Performed By: #### L [id number] #### [facility] (DEFAULT) [address] [address] Nucleated RBC 0.0 /100 WBC Normal <=0.2 [facility] Comment on above: Order Comment: [place] Performed By: #### L [id number] #### [facility] (DEFAULT) [address] [place] [address] 04287 Platelet mean volume (Bld) [Entitic vol] 9.6 fL Normal 8.7-12.3 [place] Comment on above: Order Comment: [place] Performed By: #### L [id number] #### [facility] (DEFAULT) [address] [place] [address] 21368 Platelets (Bld) [#/Vol] 151 10*3/uL Normal 146-337 [place] Comment on above: Order Comment: [place] Performed By: #### L [id number] #### [facility] (DEFAULT) [address] [place] [address] 41878 RBC (Bld) [#/Vol] 4.70 10*6/uL Normal 4.38-5.83 [place] Comment on above: Order Comment: [place] Performed By: #### L [id number] #### [facility] (DEFAULT) [address] [place] [address] 11056 RBC Distribution 12.1 % Normal 10.9-14.3 [facility] Comment on above: Order Comment: [place] Performed By: #### L [id number] #### [facility] (DEFAULT) [address] [place] [address] 95693 Segs + Bands Auto 64.2 % Normal [facility] Comment on above: Order Comment: [place] Performed By: #### L [id number] #### [facility] (DEFAULT) [address] [place] [address] 38916 Segs + Bands,Absolute Auto 4.24 K/uL Normal 1.57-6.19 [place] Comment on above: Order Comment: [place] Performed By: #### L [id number] #### [facility] (DEFAULT) [address] [place] [address] 99873 WBC (Bld) [#/Vol] 6.60 10*3/uL Normal 3.73-10.10 [place] Comment on above: Order Comment: [place] Performed By: #### L [id number] #### [facility] (DEFAULT) [address] [place] [address] 05691 COMPREHENSIVE METABOLIC PANE Teofilo 08-16-2023 Albumin [Mass/Vol] 4.4 g/dL 3.5 - 5.0 g/dL [facility] ALP [Catalytic activity/Vol] 52 U/L 32 - 126 U/L [facility] ALT [Catalytic activity/Vol] 22 U/L 10 - 52 U/L [facility] Anion gap [Moles/Vol] 8 mmol/L 7 - 17 mmol/L [facility] AST [Catalytic activity/Vol] 19 U/L 10 - 39 U/L [facility] Bilirubin [Mass/Vol] 0.8 mg/dL NINF - 1.5 mg/dL [facility] Calcium [Mass/Vol] 10.3 mg/dL 8.6 - 10. 5 mg/dL [facility] Chloride [Moles/Vol] 105 mmol/L 98 - 10 8 mmol/L [facility] CO2 [Moles/Vol] 30 mmol/L 21 - 31 mmol/L [facility] Creatinine [Mass/Vol] 0.98 mg/dL 0.70 - 1.30 mg/dL [facility] eGFR, CKD-EPI, Male 82 - PINF [facility] Comment on above: Reported eGFR is bas ed on the CKD-EPI 2020 equation using creatinine, age, and sex. Glucose [Mass/Vol] 116 mg/dL High 70 - 99 mg/dL [facility] Interpretation and review of laboratory results Abnormal [facility] Osmolality Calc [Osmolality] 295 [facility] Potassium [Moles/Vol] 4.1 mmol/L 3.5 - 5.0 mmol/L [facility] Protein [Mass/Vol] 7.2 g/dL 6.4 - 8.3 g/dL [facility] Sodium [Moles/Vol] 139 mmol/L 135 - 145 mmol/L [facility] Urea nitrogen [Mass/Vol] 20 mg/dL 7 - 25 mg/dL [facility] Urea nitrogen/Creatinine [Mass ratio] 20 mg/mg [facility] Albumin [Mass/Vol] 4.4 g/dL Normal 3.5-5.0 [facility] Comment on above: Order Comment: [place] Performed By: #### L DO, CMPN #### [facility] (DEFAULT) [address] [place] [address] ALP [Catalytic activity/Vol] 52 U/L Normal 32-126 [place] Comment on above: Order Comment: [place] Performed By: #### L DO, CMPN #### [facility] (DEFAULT) [address] [place] [address] 26605 ALT [Catalytic activity/Vol] 22 U/L Normal 10-52 [place] Comment on above: Order Comment: [place] Performed By: #### L DO, CMPN #### [facility] (DEFAULT) [address] [place] [address] 28715 Anion gap [Moles/Vol] 8 mmol/L Normal 7-17 [facility] Comment on above: Order Comment: [place] Performed By: #### L DO, CMPN #### [facility] (DEFAULT) [address] [place] [address] 97551 AST [Catalytic activity/Vol] 19 U/L Normal 10-39 [place] Comment on above: Order Comment: [place] Performed By: #### L DO, CMPN #### [facility] (DEFAULT) [address] [place] [address] 50940 Bilirubin [Mass/Vol] 0.8 mg/dL Normal <1.5 [place] Comment on above: Order Comment: [place] Performed By: #### L DO, CMPN #### [facility] (DEFAULT) [address] [place] [address] 55471 Calcium [Mass/Vol] 10.3 mg/dL Normal 8.6-10.5 [facility] Comment on above: Order Comment: [place] Performed By: #### L DO, CMPN #### [facility] (DEFAULT) [address] [place] [address] 23372 Chloride [Moles/Vol] 105 mmol/L Normal 98-108 [place] Comment on above: Order Comment: [place] Performed By: #### L DO, CMPN #### [facility] (DEFAULT) [address] [place] [address]12 CO2 [Moles/Vol] 30 mmol/L Normal 21-31 [facility] Comment on above: Order Comment: [place] Performed By: #### L DO, CMPN #### [facility] (DEFAULT) [address] [place] [address]24 Creatinine [Mass/Vol] 0.98 mg/dL Normal 0.70-1.30 [facility] Comment on above: Order Comment: [place] Performed By: #### L DO, CMPN #### [facility] (DEFAULT) [address] [place] [address] 47888 GFR/1.73 sq M.predicted among non-blacks MDRD (S/P/Bld) [Vol rate/Area] 82 mL/min/{1.73_m2} Normal >=60 [place] Comment on above: Order Comment: [place] Result Comment: Repo rted eGFR is based on the CKD-EPI 2020 equation using creatinine, age, and sex. Performed By: #### L DO, CMPN #### [facility] (DEFAULT) [address] [place] [address]11 Glucose [Mass/Vol] 116 mg/dL High 70-99 [facility] Comment on above: Order Comment: [place] Performed By: #### L DO, CMPN #### [facility] (DEFAULT) [address] [place] [address] 04876 Osmolality [Osmolality] 295 mosm/kg Normal 278-305 [place] Comment on above: Order Comment: [place] Performed By: #### L DO, CMPN #### [facility] (DEFAULT) [address] [place] [address] 37947 Potassium [Moles/Vol] 4.1 mmol/L Normal 3.5-5.0 [facility] Comment on above: Order Comment: [place] Performed By: #### L DO, CMPN #### [facility] (DEFAULT) [address] [place] [address] 16178 Protein [Mass/Vol] 7.2 g/dL Normal 6.4-8.3 [facility] Comment on above: Order Comment: [place] Performed By: #### L DO, CMPN #### [facility] (DEFAULT) [address] [place] [address] 81467 Sodium [Moles/Vol] 139 mmol/L Normal 135-145 [facility] Comment on above: Order Comment: [place] Performed By: #### L DO, CMPN #### [facility] (DEFAULT) [address] [place] [address] 93751 Urea nitrogen [Mass/Vol] 20 mg/dL Normal 7-25 [place] Comment on above: Order Comment: [place] Performed By: #### L DO, CMPN #### [facility] (DEFAULT) [address] [place] [address] 43316 Urea nitrogen/Creatinine [Mass ratio] 20 mg/mg Normal [place] Comment on above: Order Comment: [place] Performed By: #### L DO, CMPN #### [facility] (DEFAULT) [address] [place] [address] 35305 LACTATE DEHYDROGENASEon 07-22 Interpretation and review of laboratory results Normal [facility] LDH Lactate to pyruvate reaction [Catalytic activity/Vol] 147 U/L 100 - 190 U/L [facility] LD Total 147 U/L Normal 100-190 [place] Comment on above: Order Comment: [place] Performed By: #### L DO, CMPN #### [facility] (DEFAULT) [address] [place] [id number] No Panel Informationon 08-15 [facility] EGD Study observation Narrat iveon 07-24-2023 [facility] Radiology Study observation (narrative) [facility] GLUCOSE, BLOOD (POC)on 07-23 Glucose [Mass/Vol] 117 mg/dL Abnormal 74 - 99 mg/dL [facility] Comment on above: Location:[facility], [address] [place] [address], [id number] The Accu-Chek Inform II glucose meter has not been approved for testing on patients receiving intensive medical intervention or therapy and results from this point of care glucose test should not be used for patient management decisions in these cases. Inaccurate results may also occur from other interfering factors, such as N-acetylcysteine (blood concentrations of greater than 5mg/dL), galactose, extremes of hematocrit (<10 or >65), or high doses of ascorbic acid (vitamin C) greater than 3mg/dL. Consider alternate testing mechanisms (e.g. core lab, blood gas instrument) in the above situations. Interpretation and review of laboratory results Abnormal [facility] Prostate specific Agon 07-17 Prostate specific Ag [Mass/Vol] 6.17 ng/mL High <=4.00 [facility] Comment on above: Order Comment: The DA requires that the method used for PSA assay be reported to the physician. Values obtained with different assay methods must not be used interchangeably. This test was performed at [facility] using the [employer] PSA assay is a two-site immunoenzymatic sandwich assay. The assay is approved for measurement of prostate-specific antigen (PSA)in serum and may be used in conjunction with a digital rectal examination in men 50 years and older as an aid in detection of prostate cancer. 9-Cajpk-lgppaxsfd inhibitors (e.g. Proscar, Finasteride, Avodart, Dutasteride and Dominique) for the treatment of BPH have been shown to lower PSA levels by an average of 50% after 6 months of treatment. Performed By: #### 2 [id number] #### LUIS FERNANDO DIAS ([id number]) [facility] ([facility]) [address] [place] [address] CBC W Auto Differential pane l (Bld)on 07-06-2023 Basophils (Bld) [#/Vol] 0.03 10*3/uL [facility] Basophils/100 WBC (Bld) 0.4 % [facility] Differential cell count method Nom (Bld) Auto [facility] Eosinophils (Bld) [#/Vol] 0.09 10*3/uL [facility] Eosinophils/100 WBC (Bld) 1.3 % [facility] Erythrocyte distribution width (RBC) [Ratio] 12.4 % 11.5 - 15.0 % [facility] Hematocrit (Bld) [Volume fraction] 41.6 % 39.0 - 51.0 % [facility] Hemoglobin (Bld) [Mass/Vol] 14.2 g/dL 13.0 - 17.0 g/dL [facility] Immature granulocytes (Bld) [#/Vol] 0.04 10*3/uL [facility] Immature granulocytes/100 WBC (Bld) 0.6 % [facility] Lymphocytes (Bld) [#/Vol] 1.58 10*3/uL [facility] Lymphocytes/100 WBC (Bld) 23.5 % [facility] MCH (RBC) [Entitic mass] 30.0 pg 26.0 - 34.0 pg [facility] MCHC (RBC) [Mass/Vol] 34.1 g/dL 30.5 - 36.0 g/dL [facility] MCV (RBC) [Entitic vol] 87.8 fL 80.0 - 100.0 fL [facility] Monocytes (Bld) [#/Vol] 0.60 10*3/uL [facility] Monocytes/100 WBC (Bld) 8.9 % [facility] Neutrophils (Bld) [#/Vol] 4.37 10*3/uL [facility] Neutrophils/100 WBC (Bld) 65.3 % [facility] Nucleated RBC (Bld) [#/Vol] [facility] Nucleated RBC/100 WBC (Bld) [Ratio] 0.0 % /100 WBC [facility] Platelet mean volume (Bld) [Entitic vol] 9.0 fL 9.0 - 12.7 fL [facility] Platelets (Bld) [#/Vol] 164 10*3/uL [facility] RBC (Bld) [#/Vol] 4.74 10*6/uL 4.20 - 6.0 0 m/uL [facility] WBC (Bld) [#/Vol] 6.71 10*3/uL [facility] Comprehensive metabolic 2000 panelon 07-06-2023 Albumin [Mass/Vol] 4.6 g/dL 3.9 - 4.9 g/dL [facility] ALP [Catalytic activity/Vol] 61 U/L 38 - 113 U/L [facility] ALT [Catalytic activity/Vol] 21 U/L 10 - 54 U/L [facility] Anion gap [Moles/Vol] 7 mmol/L Low 9 - 18 mmol/L [facility] AST [Catalytic activity/Vol] 18 U/L 14 - 40 U/L [facility] Bilirubin [Mass/Vol] 0.7 mg/dL 0.2 - 1 .3 mg/dL [facility] Calcium [Mass/Vol] 9.9 mg/dL 8.5 - 10. 2 mg/dL [facility] Chloride [Moles/Vol] 102 mmol/L 97 - 10 5 mmol/L [facility] CO2 [Moles/Vol] 29 mmol/L 22 - 30 mmol/L [facility] Creatinine [Mass/Vol] 1.06 mg/dL 0.73 - 1.22 mg/dL [facility] GFR/1.73 sq M.predicted among non-blacks MDRD (S/P/Bld) [Vol rate/Area] 75 mL/min/{1.73_m2} - PINF [facility] Comment on above: Estimated Glomerular Filtration Rate (eGFR) is calculated using the 2020 CKD-EPI creatinine equation. This equation utilizes serum creatinine, sex, and age as parameters. The creatinine assay has traceable calibration to isotope dilution-mass spectrometry. Refer to KDIGO guidelines for clinical interpretation. In patients with unstable renal function, e.g. those with acute kidney injury, the eGFR may not accurately reflect actual GFR. Glucose [Mass/Vol] 109 mg/dL High 74 - 99 mg/dL [facility] Comment on above: The [place] Diab[employer] Association (ADA) provides guidance for cutoff values for fasting glucose and random glucose. The ADA defines fasting as no caloric intake for at least 8 hours. Fasting plasma glucose results between 100 to 125 mg/dL indicate increased risk for diabetes (prediabetes). Fasting plasma glucose results greater than or equal to 126 mg/dL meet the criteria for diagnosis of diabetes. In the absence of unequivocal hyperglycemia, results should be confirmed by repeat testing. In a patient with classic symptoms of hyperglycemia or hyperglycemic crisis, random plasma glucose results greater than or equal to 200 mg/dL meet the criteria for diagnosis of diabetes. Reference: Standards of Medical Care in Diabetes 2016, [place] [employer]. Diabetes Care. 2016.39(Suppl 1). Interpretation and review of laboratory results Abnormal [facility] Potassium [Moles/Vol] 4.7 mmol/L 3.7 - 5.1 mmol/L [facility] Protein [Mass/Vol] 7.0 g/dL 6.3 - 8.0 g/dL [facility] Sodium [Moles/Vol] 138 mmol/L 136 - 144 mmol/L [facility] Urea nitrogen [Mass/Vol] 26 mg/dL High 9 - 24 mg/dL [facility] BETA 2 MICROGLOBULIN SERUMOr dered By: Analy Perdue on 06-01-2023 [id number] [Mass/Vol] 1.65 ug/mL 0.80 - 2.34 mg/L [facility] Interpretation and review of laboratory results Normal [facility] BETA 2 MICROGLOBULIN SERUMon 05-31-2023 Beta 2 Microglobulin 1.65 mg/L Normal 0.80-2.34 [place] Comment on above: Performed By: #### B 2M #### [facility] (DEFAULT) [address] [place] [address] CBC AND ELECTRONIC DIFFon Basophils (Bld) [#/Vol] K/uL 0.00 - 0.09 K/uL [facility] Basophils/100 WBC (Bld) 0.5 % [facility] Differential cell count method Nom (Bld) Electronic Differential [facility] Eosinophils (Bld) [#/Vol] 0.10 10*3/uL 0.00 - 0.48 K/uL [facility] Eosinophils/100 WBC (Bld) 1.6 % [facility] Erythrocyte distribution width (RBC) [Ratio] 12.7 % 10.9 - 14.3 % [facility] Hematocrit (Bld) [Volume fraction] 43.1 % 39.6 - 48.8 % [facility] Hemoglobin (Bld) [Mass/Vol] 14.3 g/dL 13.4 - 16.8 g/dL [facility] Immature granulocytes (Bld) [#/Vol] 0.04 10*3/uL NINF - 0.07 K/uL [facility] Immature granulocytes/100 WBC (Bld) 0.6 % [facility] Lymphocytes (Bld) [#/Vol] 1.35 10*3/uL 0.83 - 3.57 K/uL [facility] Lymphocytes/100 WBC (Bld) 21.8 % [facility] MCH (RBC) [Entitic mass] 29.4 pg 26.1 - 33.3 pg [facility] MCHC (RBC) [Mass/Vol] 33.2 g/dL 31.9 - 36.5 g/dL [facility] MCV (RBC) [Entitic vol] 88.7 fL 79.0 - 94.5 fL [facility] Monocytes (Bld) [#/Vol] 0.45 10*3/uL 0.24 - 0.93 K/uL [facility] Monocytes/100 WBC (Bld) 7.3 % [facility] Neutrophils (Bld) [#/Vol] 4.23 10*3/uL 1.57 - 6.19 K/uL [facility] Nucleated RBC/100 WBC (Bld) [Ratio] 0.0 % [facility] Platelet mean volume (Bld) [Entitic vol] 9.2 fL 8.7 - 12.3 fL [facility] Platelets (Bld) [#/Vol] 153 10*3/uL 146 - 337 K/uL [facility] RBC (Bld) [#/Vol] 4.86 10*6/uL [facility] Segmented neutrophils/100 WBC (Bld) 68.2 % [facility] WBC (Bld) [#/Vol] 6.20 10*3/uL 3.73 - 10. 10 K/uL [facility] Abs Baso Auto < Normal 0.00-0.09 [place] Comment on above: Performed By: #### L AB980 #### [facility] (DEFAULT) [address] [place] [address] Basophils/100 WBC (Bld) 0.5 % Normal [place] Comment on above: Performed By: #### L AB980 #### [facility] (DEFAULT) [address] [address] DIFF STATUS Electronic Differential Normal [place] Comment on above: Performed By: #### L AB980 #### [facility] (DEFAULT) [address] [address] Eosinophils (Bld) [#/Vol] 0.10 10*3/uL Normal 0.00-0.48 [place] Comment on above: Performed By: #### L AB980 #### [facility] (DEFAULT) [address] [address] Eosinophils/100 WBC (Bld) 1.6 % Normal [place] Comment on above: Performed By: #### L AB980 #### [facility] (DEFAULT) [address] [address] Hematocrit (Bld) [Volume fraction] 43.1 % Normal 39.6-48.8 [place] Comment on above: Performed By: #### L AB980 #### [facility] (DEFAULT) [address] [address] Hemoglobin (Bld) [Mass/Vol] 14.3 g/dL Normal 13.4-16.8 [place] Comment on above: Performed By: #### L AB980 #### [facility] (DEFAULT) [address] [address] Immature Grans % 0.6 % Normal [facility] Comment on above: Performed By: #### L AB980 #### [facility] (DEFAULT) [address] [address] Immature Grans Absolute 0.04 K/uL Normal <=0.07 [place] Comment on above: Performed By: #### L AB980 #### [facility] (DEFAULT) [address] [address] Lymphocytes (Bld) [#/Vol] 1.35 10*3/uL Normal 0.83-3.57 [place] Comment on above: Performed By: #### L AB980 #### [facility] (DEFAULT) [address] [address] Lymphocytes/100 WBC (Bld) 21.8 % Normal [place] Comment on above: Performed By: #### L AB980 #### [facility] (DEFAULT) [address] [address] MCV (RBC) [Entitic vol] 88.7 fL Normal 79.0-94.5 [place] Comment on above: Performed By: #### L AB980 #### [facility] (DEFAULT) [address] [address] Mean Cell Hgb 29.4 pg Normal 26.1-33.3 [place] Comment on above: Performed By: #### L AB980 #### [facility] (DEFAULT) [address] [address] Mean Cell Hgb Conc 33.2 g/dL Normal 31.9-36.5 [facility] Comment on above: Performed By: #### L AB980 #### [facility] (DEFAULT) [address] [address] Monocytes (Bld) [#/Vol] 0.45 10*3/uL Normal 0.24-0.93 [place] Comment on above: Performed By: #### L AB980 #### [facility] (DEFAULT) [address] [address] Monocytes/100 WBC (Bld) 7.3 % Normal [place] Comment on above: Performed By: #### L AB980 #### [facility] (DEFAULT) [address] [address] Nucleated RBC 0.0 /100 WBC Normal <=0.2 [facility] Comment on above: Performed By: #### L AB980 #### [facility] (DEFAULT) [address] [place] [address] Platelet mean volume (Bld) [Entitic vol] 9.2 fL Normal 8.7-12.3 [place] Comment on above: Performed By: #### L AB980 #### [facility] (DEFAULT) [address] [place] [address] Platelets (Bld) [#/Vol] 153 10*3/uL Normal 146-337 [place] Comment on above: Performed By: #### L AB980 #### [facility] (DEFAULT) [address] [address] RBC (Bld) [#/Vol] 4.86 10*6/uL Normal 4.38-5.83 [place] Comment on above: Performed By: #### L AB980 #### [facility] (DEFAULT) [address] [place] [address] RBC Distribution 12.7 % Normal 10.9-14.3 [facility] Comment on above: Performed By: #### L AB980 #### [facility] (DEFAULT) [address] [address] Segs + Bands Auto 68.2 % Normal [facility] Comment on above: Performed By: #### L AB980 #### [facility] (DEFAULT) [address] [place] [address] Segs + Bands,Absolute Auto 4.23 K/uL Normal 1.57-6.19 [place] Comment on above: Performed By: #### L AB980 #### [facility] (DEFAULT) [address] [place] [address] WBC (Bld) [#/Vol] 6.20 10*3/uL Normal 3.73-10.10 [place] Comment on above: Performed By: #### L AB980 #### [facility] (DEFAULT) [address] [place] [address] COMPREHENSIVE METABOLIC PANE Teofilo 04-10-2024 Albumin [Mass/Vol] 4.8 g/dL 3.5 - 5.0 g/dL [facility] ALP [Catalytic activity/Vol] 62 U/L 32 - 126 U/L [facility] ALT [Catalytic activity/Vol] 31 U/L 10 - 52 U/L [facility] Anion gap [Moles/Vol] 10 mmol/L 7 - 17 mmol/L [facility] AST [Catalytic activity/Vol] 24 U/L 10 - 39 U/L [facility] Bilirubin [Mass/Vol] 0.8 mg/dL NINF - 1.5 mg/dL [facility] Calcium [Mass/Vol] 10.2 mg/dL 8.6 - 10. 5 mg/dL [facility] Chloride [Moles/Vol] 103 mmol/L 98 - 10 8 mmol/L [facility] CO2 [Moles/Vol] 29 mmol/L 21 - 31 mmol/L [facility] Creatinine [Mass/Vol] 0.98 mg/dL 0.70 - 1.30 mg/dL [facility] eGFR, CKD-EPI, Male 82 - PINF [facility] Comment on above: Reported eGFR is bas ed on the CKD-EPI 2020 equation using creatinine, age, and sex. Glucose [Mass/Vol] 127 mg/dL High 70 - 99 mg/dL [facility] Interpretation and review of laboratory results Abnormal [facility] Osmolality Calc [Osmolality] 296 [facility] Potassium [Moles/Vol] 4.4 mmol/L 3.5 - 5.0 mmol/L [facility] Protein [Mass/Vol] 7.7 g/dL 6.4 - 8.3 g/dL [facility] Sodium [Moles/Vol] 138 mmol/L 135 - 145 mmol/L [facility] Urea nitrogen [Mass/Vol] 25 mg/dL 7 - 25 mg/dL [facility] Urea nitrogen/Creatinine [Mass ratio] 26 mg/mg [facility] Albumin [Mass/Vol] 4.8 g/dL Normal 3.5-5.0 [facility] Comment on above: Performed By: #### C MPN, LDO #### [facility] (DEFAULT) [address] [place] [address] ALP [Catalytic activity/Vol] 62 U/L Normal 32-126 [place] Comment on above: Performed By: #### C MPN, LDO #### [facility] (DEFAULT) [address] [place] [address] ALT [Catalytic activity/Vol] 31 U/L Normal 10-52 [place] Comment on above: Performed By: #### C MPN, LDO #### [facility] (DEFAULT) [address] [place] [address] Anion gap [Moles/Vol] 10 mmol/L Normal 7-17 [facility] Comment on above: Performed By: #### C MPN, LDO #### [facility] (DEFAULT) [address] [place] [address] AST [Catalytic activity/Vol] 24 U/L Normal 10-39 [place] Comment on above: Performed By: #### C MPN, LDO #### [facility] (DEFAULT) [address] [place] [address] Bilirubin [Mass/Vol] 0.8 mg/dL Normal <1.5 [place] Comment on above: Performed By: #### C MPN, LDO #### [facility] (DEFAULT) [address] [place] [address] Calcium [Mass/Vol] 10.2 mg/dL Normal 8.6-10.5 [facility] Comment on above: Performed By: #### C MPN, LDO #### [facility] (DEFAULT) [address] [place] [address] Chloride [Moles/Vol] 103 mmol/L Normal 98-108 [place] Comment on above: Performed By: #### C MPN, LDO #### [facility] (DEFAULT) [address] [place] [address] CO2 [Moles/Vol] 29 mmol/L Normal 21-31 [facility] Comment on above: Performed By: #### C MPN, LDO #### [facility] (DEFAULT) [address] [place] [address] Creatinine [Mass/Vol] 0.98 mg/dL Normal 0.70-1.30 [facility] Comment on above: Performed By: #### C MPN, LDO #### [facility] (DEFAULT) [address] [place] [address] GFR/1.73 sq M.predicted among non-blacks MDRD (S/P/Bld) [Vol rate/Area] 82 mL/min/{1.73_m2} Normal >=60 [place] Comment on above: Result Comment: Repo rted eGFR is based on the CKD-EPI 2020 equation using creatinine, age, and sex. Performed By: #### C MPN, LDO #### [facility] (DEFAULT) [address] [place] [address] Glucose [Mass/Vol] 127 mg/dL High 70-99 [facility] Comment on above: Performed By: #### C MPN, LDO #### [facility] (DEFAULT) [address] [place] [address] Osmolality [Osmolality] 296 mosm/kg Normal 278-305 [place] Comment on above: Performed By: #### C MPN, LDO #### [facility] (DEFAULT) [address] [place] [address] Potassium [Moles/Vol] 4.4 mmol/L Normal 3.5-5.0 [facility] Comment on above: Performed By: #### C MPN, LDO #### [facility] (DEFAULT) [address] [place] [address] Protein [Mass/Vol] 7.7 g/dL Normal 6.4-8.3 [facility] Comment on above: Performed By: #### C MPN, LDO #### [facility] (DEFAULT) [address] [place] [address] Sodium [Moles/Vol] 138 mmol/L Normal 135-145 [facility] Comment on above: Performed By: #### C MPN, LDO #### [facility] (DEFAULT) [address] [place] [address] Urea nitrogen [Mass/Vol] 25 mg/dL Normal 7-25 [place] Comment on above: Performed By: #### C MPN, LDO #### [facility] (DEFAULT) [address] [place] [address] Urea nitrogen/Creatinine [Mass ratio] 26 mg/mg Normal [place] Comment on above: Performed By: #### C MPN, LDO #### [facility] (DEFAULT) [address] [place] [address] LACTATE DEHYDROGENASEon - Interpretation and review of laboratory results Normal [facility] LDH Lactate to pyruvate reaction [Catalytic activity/Vol] 165 U/L 100 - 190 U/L [facility] LD Total 165 U/L Normal 100-190 [place] Comment on above: Performed By: #### C MPN, LDO #### [facility] (DEFAULT) [address] [place] [address] No Panel Informationon 05-30 [facility] NM PET/CT WHOLE BODY INITon 03-29-2023 NM PET/CT WHOLE BODY INIT * * *Final Report* * * DATE OF EXAM: Mar 29 2023 10:08AM [facility] 0061 - NM PET/CT WHOLE BODY INIT / PROCEDURE REASON: 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 INDICATION: Initial treatment strategy. TECHNIQUE: Radiotracer was administered IV followed about 60 minutes later by PET imaging from eyes to proximal thighs. Free breathing, low dose CT of the same body region was acquired without IV contrast for attenuation correction and anatomic localization. * CT Dose-Length Product (DLP): 282 mGy*cm * CT Dose Reduction Employed: Yes * Blood glucose (mg/dL): - * Dose (mCi): 11.2 * Radiotracer: [id number] COMPARISON: No previous FDG PET/CT available CORRELATION: No relevant imaging available RESULTS: REFERENCES: SUV reference values: * Blood pool (descending aorta) activity: SUVmax 2.5 * Background liver activity: SUVmax 2.8; SUVmean 2.1 Knitted Garment Finisher (topogram) images: No additional findings. Notes and limitations: * Standardized uptake values (SUVs) are normalized to patient body weight and indicate the highest activity concentration (SUVmax) at a given site of pathology but can be variable and are not absolute. * Physiologic/non-neoplas tic uptake is common in the brain, extraocular muscles, oral cavity, tonsils, salivary glands, vocal cords, myocardium, liver, GI tract, urinary tract, and bone marrow among others. Certain regions and organ systems can have more intense uptake, which could confound or obscure some pathology. * Unenhanced imaging is limited for the evaluation of some pathology and the acquired CT was not designed to produce, and cannot replace, diagnostic CT scan quality. * PET-CT is often not sensitive for pulmonary nodules less than 8 mm. HEAD AND NECK: Head (imaged): No abnormal uptake. Left maxillary sinus mucus retention cyst. Neck and Lymph Nodes: No abnormal uptake. Thyroid: No abnormal uptake. CHEST: Lungs and Airways: No abnormal uptake. Pleura and Pericardium: No abnormal uptake. Cardiovascular: No abnormal uptake. Coronary and aortic calcifications. Mediastinum and Lymph Nodes: No abnormal uptake. ABDOMEN AND PELVIS: Hepatobiliary: No abnormal uptake. Spleen: No abnormal uptake. Pancreas: No abnormal uptake. Adrenals: No abnormal uptake. Urinary Tract: No abnormal uptake. GI Tract: No abnormal uptake. Specifically, no suspicious focus of FDG uptake in the stomach. No measurable gastric lesion. Colonic diverticulosis. Peritoneum: No abnormal uptake. No ascites. Vasculature: No abnormal uptake. Atherosclerotic calcifications without an abdominal aortic aneurysm. Retroperitoneum and Lymph Nodes: No abnormal uptake. Pelvis: No abnormal uptake. MUSCULOSKELETAL: Osseous: No abnormal uptake. Degenerative changes. Prominent Schmorl's node L3 superior endplate with mild associated degenerative/inflammato ry FDG uptake. Soft Tissues: No abnormal uptake. There is retained radiotracer along the right antecubital injection site and vein. IMPRESSION: HEAD/NECK: * No FDG avid neoplastic process. CHEST: * No FDG avid neoplastic process. ABDOMEN/PELVIS: * No FDG avid neoplastic process. Specifically, no FDG avid gastric abnormality is apparent. MUSCULOSKELETAL: * No FDG avid neoplastic process. Solid Plasterer: PSCB Transcribe Date/Time: Mar 30 2023 8:39A Dictated by : ERIN DUEAÑS MD This examination was interpreted and the report reviewed and electronically signed by: ANUJA JIMENES MD on Mar 30 2023 11:04AM EST [id number] Normal [facility] Serum or plasma thyroid stim ulating hormone (TSH) measurement (units/volume)Ordered By: Jerel Bennett on 03-24-2023 TSH Qn 1.16 uIU/mL 0.358-3.74 [facility] BONE MARROW ANALYSISon 03-15 CASE REPORT [facility] Comment on above: Order Comment: Keaton de la vega Type: BLOOD SPECIMEN Ordering Facility: [facility] Address: [address] [place] [address] Result Comment: Bone Marrow Pathology Report Case: [id number] Authorizing Provider: Braydon Tellez MD Collected: 03/15/2023 09:22 AM Ordering Location: Hematology/Medical Received: 03/15/2023 11:49 AM Oncology Pathologist: Mike Carlin MD Specimens: A) - BONE MARROW ASPIRATE RIGHT POSTERIOR ILIAC CREST B) - BONE MARROW BIOPSY RIGHT POSTERIOR ILIAC CREST C) - BONE MARROW CLOT RIGHT POSTERIOR ILIAC CREST Performed By: #### L [id number] #### 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 Flow cytometry of the marrow aspirate showed no evidence of an abnormal T- or monoclonal B-lymphocyte population or increased blasts. Immunostains for CD138 and kappa and lambda cytoplasmic immunoglobulin were performed on the core biopsy to better quantify plasma cells and evaluate for clonality, and showed scattered CD138+ plasma cells estimated at 5% of cellularity; the plasma cells are polytypic with a slightly increased kappa:lambda ratio. A low level kappa-restricted plasma cell population as may be seen with monoclonal gammopathy of undetermined significance cannot be ruled out. Please correlate with other clinical, laboratory and radiographic findings to further classify this process. Immunostains for CD3 and CD20 were performed on the core biopsy to rule out lymphoid infiltrates, and showed scattered small CD3+ T-cells and scattered small CD20+ B-cells distributed as single cells in normal numbers. There is no evidence of marrow involvement by lymphoma. Laboratory Developed Test (LDT) Disclaimer: Performance characteristics of immunohistochemical, immunofluorescent and chromogenic in-situ hybridization tests have been determined by the performing laboratory within [facility]???s Jennifer Vizcarra [facility] Pathology and Laboratory Medicine [facility] ([facility], [facility], [facility], [facility], [facility], [facility], or [facility]) in a manner consistent with CLIA requirements. One or more of these tests have not been cleared or approved by the FDA. [facility] is regulated under CLIA as qualified to perform high-complexity testing. These tests are used for clinical purposes. They should not be regarded as investigational or for research. Positive and negative controls stain appropriately. Performed By: #### L [id number] #### [facility] CLIA [id number] [address] [facility] DESK [id number] [address] [place] FINAL DIAGNOSIS [facility] Comment on above: Order Comment: Speci men Type: BLOOD SPECIMEN Ordering Facility: [facility] Address: [address] [place] [address] Result Comment: A-C. Bone marrow, aspirate, touch imprint, clot section and core biopsy: - Normocellular marrow (30%) with trilineage hematopoiesis. - Adequate megakaryocytes. - Stainable iron present without ring sideroblasts. - Plasma cell hyperplasia with slightly increased kappa:lambda ratio (see comment). - No evidence of marrow involvement by lymphoma (see comment). KST/ 03/16/2023 Performed By: #### L [id number] #### [facility] CLIA [id number] [address] [place] [address] FINAL PERFORMING LAB [facility] Comment on above: Order Comment: Speci men Type: BLOOD SPECIMEN Ordering Facility: [facility] Address: [address] [place] [address] Result Comment: Diag nostic interpretation performed at [facility], [address] [place] [address] CLIA# [id number] Publishing Manager: Ramiro Gutierrez M.D. Performed By: #### L [id number] #### [facility] CLIA [id number] [address] [place] [address] GROSS DESCRIPTION [facility] Comment on above: Order Comment: Speci men Type: BLOOD SPECIMEN Ordering Facility: [facility] Address: [address] [place] [address] Result Comment: A. B ONE MARROW ASPIRATE RIGHT POSTERIOR ILIAC CREST Received are air-dried bone marrow aspirate smears. Submitted for light microscopy. B. BONE MARROW BIOPSY RIGHT POSTERIOR ILIAC CREST Received in formalin is one segment of cylindrical tissue measuring 1.4 x 0.3 x 0.3 cm, wright-brown and of a firm consistency. Totally submitted in one cassette after decalcification. C. BONE MARROW CLOT RIGHT POSTERIOR ILIAC CREST Received in formalin is one segment of red, hemorrhagic material measuring 2.0 x 1.0 x 0.8 cm. Totally submitted in one cassette. Performed By: #### L [id number] #### [facility] CLIA [id number] [facility] [address] [facility] MICROSCOPIC DESCRIPTION [facility] Comment on above: Order Comment: Speci men Type: BLOOD SPECIMEN Ordering Facility: [facility] Address: [address] [place] [address] Result Comment: NAOMI PHERAL BLOOD: CBC (03/15/2023) Differential Count WBC 6.06 k/uL Neutrophil 71.0% Hemoglobin 14.4 g/dL Lymphocyte 19.5% MCV 89.0 fL Monocyte 7.3% RDW-CV 12.0% Eosinophil 1.2% Platelet Count 144 k/uL Basophil 0.5% Immature granulocyte 0.5% Morphology/Interpretation: The slide was not available for review. There is mild thrombocytopenia. BONE MARROW ASPIRATE: Result Normal Range 0 % Blasts 0-2 1 % Promyelocytes 1-5 61 % Myelos/Metas/Bands/Segs 32-72 0 % Eosinophils 1-6 0 % Basophils 0-1 1 % Monocytes 0-4 26 % Erythroid precursors 13-37 5 % Lymphocytes 7-23 6 % Plasma cells 0-2 Myeloid/Erythro (1.5-4): 2.4 Cells counted: 300. Iron stain result: Stainable iron is present without ring sideroblasts. Specimen Quality: Spicular, cellular. Megakaryocytes: Present, with normal morphology. Erythropoiesis: Progressive maturation. Granulopoiesis: Progressive maturation. BONE MARROW BIOPSY: Adequacy: Adequate. Cellularity: Normal for age (30%). ME ratio: Normal. Hematopoiesis: Trilineage maturation. Megakaryocytes: Adequate. Megakaryocyte morphology: Normal. Lymphoid infiltrate: None present. Bone trabeculae: Normal. CLOT SECTION: Marrow particles: Few. Morphology: Similar to biopsy. ANCILLARY TESTS: Flow cytometry: Performed. Cytogenetics: Pending. FISH: NA. Molecular: Buffy coat stored. Note: Immunohistochemical stains were performed in addition to flow cytometry in this case to further characterize the hematolymphoid elements in the context of cell morphology and tissue architecture. Discrepancies between flow cytometric results and morphology can occur due to sampling differences, preferential loss of specific cell populations, or hemodilution. KST/ 03/16/2023 Performed By: #### L [id number] #### [facility] CLIA [id number] [address] [facility] DES[id number] [place] [address] [place] BONE MARROW CHROMOSOME ANALo n 03-15-2023 CHROMOSOME BM [facility] Comment on above: Order Comment: Order ing Facility: [facility] Address: [address] [place] [address] Result Comment: Sulma alejandre Accession Number: [id number] Doctor: BRAYDON TELLEZ Pathologist: [facility] No: [id number] Clinical diagnosis: B-cell Lymphoma Specimen Type: Bone Marrow Received Date: 03/15/2023 Number of cells counted: 20 Number of cells analyzed: 20 Number of cells karyotyped: 20 Banding resolution: 400 Banding method: G-banding DIAGNOSIS: 45,X,-Y[12]/46,XY[8] INTERPRETATION: Abnormal, male karyotype COMMENT: Ten metaphase cells were analyzed from the culture stimulated with ODN and ten metaphase cells were analyzed from the 24 hour unstimulated culture. A mixture of apparently normal cells and an abnormal clone was observed. Eight out of the 20 cells analyzed showed a 46,XY karyotype. In the remaining twelve cells there was an abnormal clone characterized by the loss of the Y chromosome. Loss of the Y chromosome has been reported in several myeloid diseases, but it is also associated with normal aging. Studies have suggested that when loss of the Y chromosome is seen in 75-100% of cells analyzed (PMID: [id number]), it is more likely to be associated with disease. Loss of the Y chromosome was observed in 60% of the cells analyzed in this 72-year-old individual and it is likely, therefore, that it is an age-related phenomenon. Clinical and pathologic correlation is recommended. As reviewed by Mike Carlin MD Performed by [facility] Pathology and Laboratory Medicine [facility] Division of Molecular Pathology [facility], [address] [facility] [place] [address] Toll free: Performed By: #### C [facility] #### [facility] CLIA [id number] [address] [facility] [place] [address] [place] CBC W Auto Differential pane l (Bld)on 03-15-2023 Basophils (Bld) [#/Vol] 0.03 10*3/uL Normal <0.11 [facility] Comment on above: Order Comment: Speci men Type: BLOOD SPECIMEN Ordering Facility: [facility] Address: [address] [place] [address] Performed By: #### L [id number] #### [facility] CLIA [id number] [address] [place] [address] [place] Basophils/100 WBC (Bld) 0.5 % [facility] Comment on above: Order Comment: Speci men Type: BLOOD SPECIMEN Ordering Facility: [facility] Address: [address] [place] [address] Performed By: #### L [id number] #### [facility] CLIA [id number] [address] [place] [address] [place] Differential cell count method Nom (Bld) Auto Normal [facility] Comment on above: Order Comment: Speci men Type: BLOOD SPECIMEN Ordering Facility: [facility] Address: [address] [place] [address] Performed By: #### L [id number] #### [facility] CLIA [id number] [address] [place] [address] [place] Eosinophils (Bld) [#/Vol] 0.07 10*3/uL Normal <0.46 [facility] Comment on above: Order Comment: Speci men Type: BLOOD SPECIMEN Ordering Facility: [facility] Address: [address] [place] [address] Performed By: #### L [id number] #### [facility] CLIA [id number] [address] [place] [address] [place] Eosinophils/100 WBC (Bld) 1.2 % [facility] Comment on above: Order Comment: Speci men Type: BLOOD SPECIMEN Ordering Facility: [facility] Address: [address] [place] [address] Performed By: #### L [id number] #### [facility] CLIA [id number] [address] [place] [address] [place] Erythrocyte distribution width (RBC) [Ratio] 12.0 % Normal 11.5-15.0 [facility] Comment on above: Order Comment: Speci men Type: BLOOD SPECIMEN Ordering Facility: [facility] Address: [address] [place] [address] Performed By: #### L [id number] #### [facility] CLIA [id number] [address] [place] [address] [place] Hematocrit (Bld) [Volume fraction] 43.5 % Normal 39.0-51.0 [facility] Comment on above: Order Comment: Speci men Type: BLOOD SPECIMEN Ordering Facility: [facility] Address: [address] [place] [address] Performed By: #### L [id number] #### [facility] CLIA [id number] [address] [place] [address] [place] Hemoglobin (Bld) [Mass/Vol] 14.4 g/dL Normal 13.0-17.0 [facility] Comment on above: Order Comment: Speci men Type: BLOOD SPECIMEN Ordering Facility: [facility] Address: [address] [place] [address] Performed By: #### L [id number] #### [facility] CLIA [id number] [address] [place] [address] [place] Immature granulocytes (Bld) [#/Vol] 0.03 10*3/uL Normal <0.10 [facility] Comment on above: Order Comment: Speci men Type: BLOOD SPECIMEN Ordering Facility: [facility] Address: [address] [place] [address] Performed By: #### L [id number] #### [facility] CLIA [id number] [address] [place] [address] [place] Immature granulocytes/100 WBC (Bld) 0.5 % Normal [facility] Comment on above: Order Comment: Speci men Type: BLOOD SPECIMEN Ordering Facility: [facility] Address: [address] [place] [address] Performed By: #### L [id number] #### [facility] CLIA [id number] [address] [place] [address] [place] Lymphocytes (Bld) [#/Vol] 1.18 10*3/uL Normal 1.00-4.00 [facility] Comment on above: Order Comment: Speci men Type: BLOOD SPECIMEN Ordering Facility: [facility] Address: [address] [place] [address] Performed By: #### L [id number] #### [facility] CLIA [id number] [address] [place] [address] [place] Lymphocytes/100 WBC (Bld) 19.5 % Normal [facility] Comment on above: Order Comment: Speci men Type: BLOOD SPECIMEN Ordering Facility: [facility] Address: [address] [place] [address] Performed By: #### L [id number] #### [facility] CLIA [id number] [address] [place] [address] [place] MCH (RBC) [Entitic mass] 29.4 pg Normal 26.0-34.0 [facility] Comment on above: Order Comment: Speci men Type: BLOOD SPECIMEN Ordering Facility: [facility] Address: [address] [place] [address] Performed By: #### L [id number] #### [facility] CLIA [id number] [address] [place] [address] [place] MCHC (RBC) [Mass/Vol] 33.1 g/dL Normal 30.5-36.0 [facility] Comment on above: Order Comment: Speci men Type: BLOOD SPECIMEN Ordering Facility: [facility] Address: [address] [place] [address] Performed By: #### L [id number] #### [facility] CLIA [id number] [address] [place] [address] [place] MCV (RBC) [Entitic vol] 89.0 fL Normal 80.0-100.0 [facility] Comment on above: Order Comment: Speci men Type: BLOOD SPECIMEN Ordering Facility: [facility] Address: [address] [place] [address] Performed By: #### L [id number] #### [facility] CLIA [id number] [address] [place] [address] [place] Monocytes (Bld) [#/Vol] 0.44 10*3/uL Normal <0.87 [facility] Comment on above: Order Comment: Speci men Type: BLOOD SPECIMEN Ordering Facility: [facility] Address: [address] [place] [address] Performed By: #### L [id number] #### [facility] CLIA [id number] [address] [place] [address] [place] Monocytes/100 WBC (Bld) 7.3 % Normal [facility] Comment on above: Order Comment: Speci men Type: BLOOD SPECIMEN Ordering Facility: [facility] Address: [address] [place] [address] Performed By: #### L [id number] #### [facility] CLIA [id number] [address] [place] [address] [place] Neutrophils (Bld) [#/Vol] 4.31 10*3/uL Normal 1.45-7.50 [facility] Comment on above: Order Comment: Speci men Type: BLOOD SPECIMEN Ordering Facility: [facility] Address: [address] [place] [address] Performed By: #### L [id number] #### [facility] CLIA [id number] [address] [place] [address] [place] Neutrophils/100 WBC (Bld) 71.0 % Normal [facility] Comment on above: Order Comment: Speci men Type: BLOOD SPECIMEN Ordering Facility: [facility] Address: [address] [place] [address] Performed By: #### L [id number] #### [facility] CLIA [id number] [address] [place] [address] [place] Nucleated RBC (Bld) [#/Vol] 10*3/uL Normal <0.01 [facility] Comment on above: Order Comment: Speci men Type: BLOOD SPECIMEN Ordering Facility: [facility] Address: [address] [place] [address] Performed By: #### L [id number] #### [facility] CLIA [id number] [address] [place] [address] [place] Nucleated RBC/100 WBC (Bld) [Ratio] 0.0 /100 WBC Normal [facility] Comment on above: Order Comment: Speci men Type: BLOOD SPECIMEN Ordering Facility: [facility] Address: [address] [place] [address] Performed By: #### L [id number] #### [facility] CLIA [id number] [address] [place] [address] [place] Platelet mean volume (Bld) [Entitic vol] 10.0 fL Normal 9.0-12.7 [facility] Comment on above: Order Comment: Speci men Type: BLOOD SPECIMEN Ordering Facility: [facility] Address: [address] [place] [address] Performed By: #### L [id number] #### [facility] CLIA [id number] [address] [place] [address] [place] Platelets (Bld) [#/Vol] 144 10*3/uL Low 150-400 [facility] Comment on above: Order Comment: Speci men Type: BLOOD SPECIMEN Ordering Facility: [facility] Address: [address] [place] [address] Performed By: #### L [id number] #### [facility] CLIA [id number] [address] [place] [address] [place] RBC (Bld) [#/Vol] 4.89 10*6/uL Normal 4.20-6.00 [facility] Comment on above: Order Comment: Speci men Type: BLOOD SPECIMEN Ordering Facility: [facility] Address: [address] [place] [id number] Performed By: #### L [id number] #### [facility] CLIA [id number] [address] [place] [address] [place] WBC (Bld) [#/Vol] 6.06 10*3/uL Normal 3.70-11.00 [facility] Comment on above: Order Comment: Speci men Type: BLOOD SPECIMEN Ordering Facility: [facility] Address: [address] [facility] [address] Performed By: #### L [id number] #### [facility] CLIA [id number] [address] [place] CNOVSPon 03-15-2023 CNOVSP Visit (SP) Office ([place]) JENNIFER TIDWELL ([id number]) [address] [facility] Date Time Provider Department 03/15/23 8:30 AM KORIN NICOLAS During your visit today, we recorded the following information about you: Pulse Respiration Blood pressure Weight 73/minute 19/minute 117/74 70 kg Korin Nicolas, COLD STRIP ROLLER.YARD CALLER 03/15/2023 9:55 AM Addendum Bone Marrow Aspiration and Biopsy Discharge Instructions Care of the Biopsy/Aspiration Site Leave your pressure bandage on for 24 hours. Keep it clean and dry. You may carefully remove the dressing after 24 hours to shower. Do not scrub at the procedure site. Allow the soapy water just to run over and then pat the area dry. Apply a dry Band-Aid to the area until a scab forms, usually in 3-4 days. Do not use any ointments on the area. Do not take a bath, sit in a hot tub, or go swimming for 48 hours. If bleeding occurs, hold firm pressure to the area for 10 minutes. If bleeding does not stop, call our office ([phone], option 1). If it is after 5 pm go to the nearest emergency room. Some bruising at the site is to be expected. Take Tylenol 650 mg every four hours as needed for discomfort. Do not take any aspirin-containing medications or non-steroidal medications (like Ibuprofen or Aleve) for 24 hours following the procedure. If pain is not controlled with Tylenol, call our office ([phone], option 1). You may continue all previous medications as ordered. Call your doctor for: Excessive bleeding A temperature great than 100.5 degrees Fahrenheit Swelling Drainage What is H. pylori infection? -- Helicobacter pylori infection occurs when a type of bacteria called H. pylori infects a person's stomach. Many people have H. pylori infection. In some cases, H. pylori infection can lead to problems that can cause symptoms. These problems can include: ?Open sores, called ulcers, on the lining of a person's stomach or duodenum - The duodenum is the first part of the small intestine (figure 1). ?Stomach cancer These conditions can sometimes cause pain or discomfort in the upper belly, nausea, or vomiting. Doctors do not know why H. pylori infection leads to problems in some people and not others. What are the symptoms of H. pylori infection? -- Most people with H. pylori infection have no symptoms. But people who have ulcers can have symptoms that are caused by the ulcers. Common symptoms of ulcers can include: ?Pain or discomfort in the upper belly ?Feeling full after eating a small amount of food ?Not feeling hungry ?Nausea or vomiting ?Dark or black-colored bowel movements ?Feeling more tired than usual Not all ulcers are caused by H. pylori infection. For example, people can get ulcers from taking certain pain-relieving medicines. But if you have the symptoms listed above, let your doctor or nurse know. Is there a test for H. pylori infection? -- Yes. Doctors can do different tests to diagnose H. pylori infection. These can include: ?Blood tests ?Breath tests - These tests measure substances in a person's breath after they drink a special liquid. ?Stool tests - These are tests to check a sample of a bowel movement, or stool, for H. pylori infection. ?Biopsy - For this test, a doctor takes a small piece of tissue from the lining of the stomach. Then, they look at the tissue under a microscope. A doctor can do a biopsy during an endoscopy. An endoscopy is a procedure that lets a doctor look at the inside lining of the esophagus, stomach, and duodenum. Should I be tested for H. pylori infection? -- You should be tested for H. pylori infection if you have symptoms and: ?Have an ulcer in the stomach or duodenum ?Have had ulcers in the past ?Have had stomach cancer ?Need to take an antiinflammatory medicine or aspirin for a long time Doctors also sometimes test people with symptoms who have never had an ulcer. How is H. pylori infection treated? -- H. pylori infection is treated with medicines. Most people need to take 3 or more medicines for 2 weeks. These can include: ?Medicines to reduce the amount of acid that the stomach makes - This can help cure the infection and help ulcers heal. ?Different types of antibiotics People who are diagnosed with H. pylori infection should get treated, because treatment can: ?Help ulcers heal ?Keep ulcers from coming back ?Reduce the chance that an ulcer will get worse or lead to cancer Follow all of your doctor's instructions about taking your medicines. Let your doctor or nurse know if you have any side effects or problems with your medicines. What happens after treatment? -- After treatment, most people have follow-up tests to check that the H. pylori infection went away. Follow-up tests can include: ?Breath tests ?Lab tests that check a sample of a bowel movement ?Upper en (more content not included)... [facility] DNA EXTRACTION BONE MARROW ( BUFFY COAT)on 03-15-2023 DNA EXTRACTION BONE MARROW (BUFFY COAT) [facility] Comment on above: Order Comment: Speci men Type: BONE MARROW SPECIMEN Ordering Facility: [facility] Address: [address] [facility] [place] [address] Result Comment: This specimen was received and successfully processed for future DNA purification should molecular testing be needed. Specimens will be available for 3 years from date of collection. To order testing on this specimen for [facility] patients, please place an Psychiatric order for DNA and RNA Clinical Testing ([id number]). To order testing for patients outside of the [facility] system, please request DNA and RNA for Clinical Testing, order code [id number]. If additional paperwork is required for testing, please send completed forms via secure email to [facility] . Performed By: #### N UCBUF #### [facility] CLIA [id number] [address] [place] [address] FLOW CYTOMETRY FOR LEUKEMIA/ LYMPHOMA (FCLL) PERFORMABLEon 03-15-2023 FLOW CYTOMETRY ORDER STATUS See Results in chart under F case ID [facility] Comment on above: Order Comment: Speccarolyn de la vega Type: BLOOD SPECIMEN Ordering Facility: [facility] Address: [address] [place] [address] Performed By: #### L [id number] #### [facility] CLIA [id number] [address] [place] [address] FLOW CYTOMETRY FOR LEUKEMIA/ LYMPHOMA (FCLL) REFLEXon 03-15-2023 DIAGNOSIS COMMENT [facility] Comment on above: Order Comment: Keaton de la vega Type: BLOOD SPECIMEN Ordering Facility: [facility] Address: [address] [place] [address] Result Comment: This assay is not designed to detect minimal residual disease, plasma cell neoplasms, or myeloid antigen maturational patterns. This test was developed and its performance characteristics determined by [facility]'s Jennifer JSara [facility] Pathology and Laboratory Medicine [facility] ([facility]). It has not been cleared or approved by the FDA. -[facility] is regulated under CLIA as qualified to perform high-complexity testing. This test is used for clinical purposes. It should not be regarded as investigational or for research. Performed By: #### L [id number] #### [facility] CLIA [id number] [address] [place] [address] [facility]FORM[facility] Comment on above: Order Comment: Sachini yolette Type: BLOOD SPECIMEN Ordering Facility: [facility] Address: [address] [place] [address] Result Comment: Diag nostic interpretation performed at [facility], [address] [place] [address] CLIA# [id number] Publishing Manager: Ramiro Gutierrez M.D. Performed By: #### L [id number] #### [facility] CLIA [id number] [facility] [place] [address] [place] FLOW CYTOMETRY RESULTS Normal [facility] Comment on above: Order Comment: Speci men Type: BLOOD SPECIMEN Ordering Facility: [facility] Address: [address] [place] [address] Result Comment: Spec imen type: Bone Marrow Aspirate. Viability: 98%. Flow Cytometry Bone Marrow Immunophenotyping Marker Normal Cell Type Result (Lymphocytes) CD3 T-cells Normal Pattern CD4 T-cell subset Normal Pattern CD5 T-cells Normal Pattern CD7 T/NK-cells Normal Pattern CD8 T-cell subset Normal Pattern CD13 Myeloid Normal Pattern CD16/56 NK cells Normal Pattern CD19 B-cells Normal Pattern CD34 Blasts Normal Pattern CD45 Walter-leukocyte Normal Pattern kappa/lambda B-cells Polytypic Flow cytometric analysis of the bone marrow aspirate reveals that 18% of total events have the CD45 and light scatter properties of lymphocytes. The lymphocytes are composed of T-cells (57%, CD4:CD8 ratio = 1.97), NK cells (30%), and polytypic B-cells (8% with a kappa:lambda ratio of 1.19). Granulocytic elements are 69% of events. Blasts are not increased. KST/ 03/16/2023 Performed By: #### L [id number] #### [facility] IA [id number] [address] [place] [address] [place] GROSS DESCRIPTION A. Bone Marrow Normal [facility] Comment on above: Order Comment: Speci men Type: BLOOD SPECIMEN Ordering Facility: [facility] Address: [address] [place] [address] Result Comment: RECE IVED 3 MLS BONE MARROW IN HEPARIN Performed By: #### L [id number] #### [facility] IA [id number] [address] [place] [address] [place] INTERPRETATION Normal [facility] Comment on above: Order Comment: Speci [facility] Type: BLOOD SPECIMEN Ordering Facility: [facility] Address: [address] [place] [address] Result Comment: Ther e is no evidence of involvement by a lymphoproliferative disorder or abnormal blast population. Correlation with the clinical and bone marrow histopathologic findings is suggested. Performed By: #### L [id number] #### [facility] CLIA [id number] [address] [facility] [place] [place] [address] [place] CBC W Auto Differential pane l (Bld)on 03-07-2023 Basophils (Bld) [#/Vol] 0.04 10*3/uL Normal <0.11 [facility] Comment on above: Order Comment: Speci men Type: BLOOD SPECIMEN Ordering Facility: [facility] Address: [address] [place] [address] Performed By: #### 5 7021-8 #### [facility] CLIA [id number] [address] [place] [address] [place] Basophils/100 WBC (Bld) 0.7 % Normal [facility] Comment on above: Order Comment: Speci men Type: BLOOD SPECIMEN Ordering Facility: [facility] Address: [address] [place] [address] Performed By: #### 5 7021-8 #### [facility] CLIA [id number] [address] [place] [address] [place] Differential cell count method Nom (Bld) Auto Normal [facility] Comment on above: Order Comment: Speci men Type: BLOOD SPECIMEN Ordering Facility: [facility] Address: [address] [place] [address] Performed By: #### 5 7021-8 #### [facility] CLIA [id number] [address] [place] [address] [place] Eosinophils (Bld) [#/Vol] 0.09 10*3/uL Normal <0.46 [facility] Comment on above: Order Comment: Speci men Type: BLOOD SPECIMEN Ordering Facility: [facility] Address: [address] [place] [address] Performed By: #### 5 7021-8 #### [facility] CLIA [id number] [address] [place] [address] [place] Eosinophils/100 WBC (Bld) 1.6 % Normal [facility] Comment on above: Order Comment: Speci men Type: BLOOD SPECIMEN Ordering Facility: [facility] Address: [address] [place] [address] Performed By: #### 5 7021-8 #### [facility] CLIA [id number] [address] [place] [address] [place] Erythrocyte distribution width (RBC) [Ratio] 12.1 % Normal 11.5-15.0 [facility] Comment on above: Order Comment: Speci men Type: BLOOD SPECIMEN Ordering Facility: [facility] Address: [address] [place] [address] Performed By: #### 5 7021-8 #### [facility] CLIA [id number] [address] [place] [address] [place] Hematocrit (Bld) [Volume fraction] 44.7 % Normal 39.0-51.0 [facility] Comment on above: Order Comment: Speci men Type: BLOOD SPECIMEN Ordering Facility: [facility] Address: [address] [place] [address] Performed By: #### 5 7021-8 #### [facility] CLIA [id number] [address] [place] [address] [place] Hemoglobin (Bld) [Mass/Vol] 14.7 g/dL Normal 13.0-17.0 [facility] Comment on above: Order Comment: Speci men Type: BLOOD SPECIMEN Ordering Facility: [facility] Address: [address] [place] [address] Performed By: #### 5 7021-8 #### [facility] CLIA [id number] [address] [place] [address] [place] Immature granulocytes (Bld) [#/Vol] 10*3/uL Normal <0.10 [facility] Comment on above: Order Comment: Speci men Type: BLOOD SPECIMEN Ordering Facility: [facility] Address: [address] [place] [address] Performed By: #### 5 7021-8 #### [facility] CLIA [id number] [address] [place] [address] [place] Immature granulocytes/100 WBC (Bld) 0.4 % Normal [facility] Comment on above: Order Comment: Speci men Type: BLOOD SPECIMEN Ordering Facility: [facility] Address: [address] [place] [address] Performed By: #### 5 7021-8 #### [facility] CLIA [id number] [address] [place] [address] [place] Lymphocytes (Bld) [#/Vol] 1.15 10*3/uL Normal 1.00-4.00 [facility] Comment on above: Order Comment: Speci men Type: BLOOD SPECIMEN Ordering Facility: [facility] Address: [address] [place] [address] Performed By: #### 5 7021-8 #### [facility] IA [id number] [address] [place] [address] [place] Lymphocytes/100 WBC (Bld) 20.9 % Normal [facility] Comment on above: Order Comment: Speci men Type: BLOOD SPECIMEN Ordering Facility: [facility] Address: [address] [place] [address] Performed By: #### 5 7021-8 #### [facility] IA [id number] [address] [place] [address] [place] MCH (RBC) [Entitic mass] 29.4 pg Normal 26.0-34.0 [facility] Comment on above: Order Comment: Speci men Type: BLOOD SPECIMEN Ordering Facility: [facility] Address: [address] [place] [address] Performed By: #### 5 7021-8 #### [facility] CLIA [id number] [address] [place] [address] [place] MCHC (RBC) [Mass/Vol] 32.9 g/dL Normal 30.5-36.0 [facility] Comment on above: Order Comment: Speci men Type: BLOOD SPECIMEN Ordering Facility: [facility] Address: [address] [place] [address] Performed By: #### 5 7021-8 #### [facility] CLIA [id number] [address] [place] [address] [place] MCV (RBC) [Entitic vol] 89.4 fL Normal 80.0-100.0 [facility] Comment on above: Order Comment: Speci men Type: BLOOD SPECIMEN Ordering Facility: [facility] Address: [address] [place] [address] Performed By: #### 5 7021-8 #### [facility] CLIA [id number] [address] [place] [address] [place] Monocytes (Bld) [#/Vol] 0.57 10*3/uL Normal <0.87 [facility] Comment on above: Order Comment: Speci men Type: BLOOD SPECIMEN Ordering Facility: [facility] Address: [address] [place] [address] Performed By: #### 5 7021-8 #### [facility] CLIA [id number] [address] [place] [address] [place] Monocytes/100 WBC (Bld) 10.4 % Normal [facility] Comment on above: Order Comment: Speci men Type: BLOOD SPECIMEN Ordering Facility: [facility] Address: [address] [place] [address] Performed By: #### 5 7021-8 #### [facility] IA [id number] [address] [place] [address] [place] Neutrophils (Bld) [#/Vol] 3.62 10*3/uL Normal 1.45-7.50 [facility] Comment on above: Order Comment: Speci men Type: BLOOD SPECIMEN Ordering Facility: [facility] Address: [address] [place] [address] Performed By: #### 5 7021-8 #### [facility] CLIA [id number] [address] [place] [address] [place] Neutrophils/100 WBC (Bld) 66.0 % Normal [facility] Comment on above: Order Comment: Speci men Type: BLOOD SPECIMEN Ordering Facility: [facility] Address: [address] [facility] [place] [address] Performed By: #### 5 7021-8 #### [facility] CLIA [id number] [address] [place], [place] [address] [place] Nucleated RBC (Bld) [#/Vol] 10*3/uL Normal <0.01 [facility] Comment on above: Order Comment: Speci men Type: BLOOD SPECIMEN Ordering Facility: [facility] Address: [address] [place] [address] Performed By: #### 5 7021-8 #### [facility] CLIA [id number] [address] [place], [place] [address] [place] Nucleated RBC/100 WBC (Bld) [Ratio] 0.0 /100 WBC Normal [facility] Comment on above: Order Comment: Speci men Type: BLOOD SPECIMEN Ordering Facility: [facility] Address: [address] [place] [address] Performed By: #### 5 7021-8 #### [facility] CLIA [id number] [address] [place] [address] [place] Platelet mean volume (Bld) [Entitic vol] 9.9 fL Normal 9.0-12.7 [facility] Comment on above: Order Comment: Speci men Type: BLOOD SPECIMEN Ordering Facility: [facility] Address: [address] [place] [address] Performed By: #### 5 7021-8 #### [facility] CLIA [id number] [address] [place], [place] [address] [place] Platelets (Bld) [#/Vol] 151 10*3/uL Normal 150-400 [facility] Comment on above: Order Comment: Speci men Type: BLOOD SPECIMEN Ordering Facility: [facility] Address: [address] [place] [address] Performed By: #### 5 7021-8 #### [facility] CLIA [id number] [address] [place], [place] [address] [place] RBC (Bld) [#/Vol] 5.00 10*6/uL Normal 4.20-6.00 [facility] Comment on above: Order Comment: Speccarolyn de la vega Type: BLOOD SPECIMEN Ordering Facility: [facility] Address: [address] [place] [address] Performed By: #### 5 7021-8 #### [facility] [id number] [address] [place], [place] [address] [place] WBC (Bld) [#/Vol] 5.49 10*3/uL Normal 3.70-11.00 [facility] Comment on above: Order Comment: Speci men Type: BLOOD SPECIMEN Ordering Facility: [facility] Address: [address] [place] [address] Performed By: #### 5 7021-8 #### [facility] [id number] [address] [place], [place] [address] [facility] CNOVSPon 03-07-2023 CNOVSP Visit (SP) Office ([place]) JENNIFER TIDWELL ([id number]) [address] [facility] Date Time Provider Department 03/07/23 9:30 AM BRAYDON TELLEZ During your visit today, we recorded the following information about you: Pulse Blood pressure Weight Height 63/minute 131/81 68.9 kg 1.753 m Braydon Tellez MD 03/07/2023 10:55 AM Signed Jennifer Tidwell is a 72 year old male who [...] small meals. EGD/colon performed 02/17/[address] Rivera[address] Per Dr. Rivera: Treatment for H pylori was sent to [...] facility-administered medications for this visit. 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 Drink beer or bourbon-occasionally He smoked when [...] 131/81 Pulse 63 Ht 175.3 cm (5' 9) Wt 68.9 kg (152 lb) SpO2 98% [...] normal Neck: Supple, no adenopathy; thyroid symmetric, (more content not included)... Normal [facility] Comprehensive metabolic 2000 panelon 03-07-2023 Albumin [Mass/Vol] 4.4 g/dL Normal 3.9-4.9 [facility] Comment on above: Order Comment: Speci men Type: BLOOD SPECIMEN Ordering Facility: [facility] Address: [address] [place] [address] Performed By: #### 2 4323-8 #### [facility] CLIA [id number] [address] [place] [address] [place] ALP [Catalytic activity/Vol] 64 U/L Normal 38-113 [facility] Comment on above: Order Comment: Speci men Type: BLOOD SPECIMEN Ordering Facility: [facility] Address: [address] [place] [address] Performed By: #### 2 4323-8 #### [facility] CLIA [id number] [address] [place] [address] [place] ALT [Catalytic activity/Vol] 26 U/L Normal 10-54 [facility] Comment on above: Order Comment: Speci men Type: BLOOD SPECIMEN Ordering Facility: [facility] Address: [address] [place] [address] Performed By: #### 2 4323-8 #### [facility] CLIA [id number] [address] [place] [address] STATES [facility] Anion gap [Moles/Vol] 9 mmol/L Normal 9-18 [facility] Comment on above: Order Comment: Speci men Type: BLOOD SPECIMEN Ordering Facility: [facility] Address: [address] [place] [address] Performed By: #### 2 4323-8 #### [facility] CLIA [id number] [address] [place] [address] STATES [facility] AST [Catalytic activity/Vol] 22 U/L Normal 14-40 [facility] Comment on above: Order Comment: Speci men Type: BLOOD SPECIMEN Ordering Facility: [facility] Address: [address] [place] [address] Performed By: #### 2 4323-8 #### [facility] CLIA [id number] [address] [place] [address] [place] Bilirubin [Mass/Vol] 0.5 mg/dL Normal 0.2-1.3 [facility] Comment on above: Order Comment: Speci men Type: BLOOD SPECIMEN Ordering Facility: [facility] Address: [address] [place] [address] Performed By: #### 2 4323-8 #### [facility] CLIA [id number] [address] [place] [address] [place] Calcium [Mass/Vol] 9.4 mg/dL Normal 8.5-10.2 [facility] Comment on above: Order Comment: Speci men Type: BLOOD SPECIMEN Ordering Facility: [facility] Address: [address] [place] [address] Performed By: #### 2 4323-8 #### [facility] CLIA [id number] [address] [place] [address] [place] Chloride [Moles/Vol] 104 mmol/L Normal 97-105 [facility] Comment on above: Order Comment: Speci men Type: BLOOD SPECIMEN Ordering Facility: [facility] Address: [address] [place] [address] Performed By: #### 2 4323-8 #### [facility] CLIA [id number] [address] [place] [address] [place] CO2 [Moles/Vol] 26 mmol/L Normal 22-30 [facility] Comment on above: Order Comment: Speci men Type: BLOOD SPECIMEN Ordering Facility: [facility] Address: [address] [place] [address] Performed By: #### 2 4323-8 #### [facility] CLIA [id number] [address] [place] [address] [place] Creatinine [Mass/Vol] 1.00 mg/dL Normal 0.73-1.22 [facility] Comment on above: Order Comment: Speci men Type: BLOOD SPECIMEN Ordering Facility: [facility] Address: [address] [place] [address] Performed By: #### 2 4323-8 #### [facility] CLIA [id number] [address] [place] [address] [place] Creatinine and Glomerular filtration rate.predicted panel (S/P/Bld) 80 mL/min/1.73m??? Normal >=60 [facility] Comment on above: Order Comment: Speci men Type: BLOOD SPECIMEN Ordering Facility: [facility] Address: [address] [place] [address] Result Comment: Tami mated Glomerular Filtration Rate (eGFR) is calculated using the 2020 CKD-EPI creatinine equation. This equation utilizes serum creatinine, sex, and age as parameters. The creatinine assay has traceable calibration to isotope dilution-mass spectrometry. Refer to KDIGO guidelines for clinical interpretation. In patients with unstable renal function, e.g. those with acute kidney injury, the eGFR may not accurately reflect actual GFR. Performed By: #### 2 4323-8 #### [facility] CLIA [id number] [address] [place] [id number] [place] Glucose [Mass/Vol] 125 mg/dL High 74-99 [facility] Comment on above: Order Comment: Keaton de la vega Type: BLOOD SPECIMEN Ordering Facility: [facility] Address: [address] [place] [address] Result Comment: The [place] Diabetes Association (ADA) provides guidance for cutoff values for fasting glucose and random glucose. The ADA defines fasting as no caloric intake for at least 8 hours. Fasting plasma glucose results between 100 to 125 mg/dL indicate increased risk for diabetes (prediabetes). Fasting plasma glucose results greater than or equal to 126 mg/dL meet the criteria for diagnosis of diabetes. In the absence of unequivocal hyperglycemia, results should be confirmed by repeat testing. In a patient with classic symptoms of hyperglycemia or hyperglycemic crisis, random plasma glucose results greater than or equal to 200 mg/dL meet the criteria for diagnosis of diabetes. Reference: Standards of Medical Care in Diabetes 2016, [employer]. Diabetes Care. 2016.39(Suppl 1). Performed By: #### 2 4323-8 #### [facility] CLIA [id number] [address] [place], [place] [id number] [place] Potassium [Moles/Vol] 4.5 mmol/L Normal 3.7-5.1 [facility] Comment on above: Order Comment: Keaton de la vega Type: BLOOD SPECIMEN Ordering Facility: [facility] Address: [address] [place] [address] Performed By: #### 2 4323-8 #### [facility] CLIA [id number] [address] [place], [place] [id number] [place] Protein [Mass/Vol] 7.2 g/dL Normal 6.3-8.0 [facility] Comment on above: Order Comment: Speci men Type: BLOOD SPECIMEN Ordering Facility: [facility] Address: [address] [place] [address] Performed By: #### 2 4323-8 #### [facility] [place] [id number] [address] [place], [place] [address] [place] Sodium [Moles/Vol] 139 mmol/L Normal 136-144 [facility] Comment on above: Order Comment: Speci men Type: BLOOD SPECIMEN Ordering Facility: [facility] Address: [address] [place] [address] Performed By: #### 2 4323-8 #### [facility] [place] [id number] [address] [place], [place] [address] [place] Urea nitrogen [Mass/Vol] 26 mg/dL High 9-24 [facility] Comment on above: Order Comment: Keaton yolette Type: BLOOD SPECIMEN Ordering Facility: [facility] Address: [address] [place] [address] Performed By: #### 2 4323-8 #### [facility] [place] [id number] [address] [place], [place] [address] [place] HBV core Ab Ser Qlon 024 HBV core Ab Ql (S) Negative Normal Negative [facility] Comment on above: Order Comment: Keaton yolette Type: BLOOD SPECIMEN Ordering Facility: [facility] Address: [address] [place] [address] Result Comment: No e vidence of current or past infection with Hepatitis B virus. Should recent infection be suspected, repeat testing may be considered 3-4 weeks after this draw. Performed By: #### 1 6933-4, 5195-3, 53389-6 #### [facility] CLIA [id number] [address] [facility] [id number] [place] [address] [place] HBV surface Ab Ql (S)on 02-20 HBV surface Ab Qn (S) <8.00 Normal [facility] Comment on above: Order Comment: Speci yolette Type: BLOOD SPECIMEN Ordering Facility: [facility] Address: [address] [place] [address] Result Comment: <8 m IU/mL: No serological evidence of immunity to Hepatitis B Virus. >/= 8 to <12 mIU/mL: No serological evidence of immunity to Hepatitis B Virus. >/= 12 mIU/mL: Consistent with serological evidence of immunity to Hepatitis B Virus. Performed By: #### 1 6933-4, 5195-3, 77344-9 #### [facility] CLIA [id number] [address] [place] [address] [place] HBV surface Ab Ser Qlon 02-20 HBV surface Ab Ql (S) Negative Normal [facility] Comment on above: Order Comment: Speci men Type: BLOOD SPECIMEN Ordering Facility: [facility] Address: [address] [place] [address] Result Comment: No s erological evidence of immunity to Hepatitis B Virus. Performed By: #### 1 6933-4, 5195-3, 32317-6 #### [facility] CLIA [id number] [address] [place] [address] [place] HBV surface Ag Ser Qlon 02-20 HBV surface Ag Ql (S) Negative Normal Negative [facility] Comment on above: Order Comment: Speci men Type: BLOOD SPECIMEN Ordering Facility: [facility] Address: [address] [place] [address] Performed By: #### 1 6933-4, 5195-3, 90871-6 #### [facility] CLIA [id number] [address] [place] [address] [facility] HCV Ab Ser Qlon 03-07-2023 HCV Ab Ql (S) Negative Normal Negative [facility] Comment on above: Order Comment: Speci men Type: BLOOD SPECIMEN Ordering Facility: [facility] Address: [address] [place] [address] Result Comment: The result suggests no evidence of active infection with Hepatitis C virus. Should recent infection be suspected, repeat testing may be considered 4-6 weeks after this draw. Performed By: #### L [id number] #### [facility] CLIA [id number] [address] [place] [address] [place] LDH SerPl-cCncon 03-07-2023 LDH [Catalytic activity/Vol] 181 U/L Normal 135-225 [facility] Comment on above: Order Comment: Speci men Type: BLOOD SPECIMEN Ordering Facility: [facility] Address: [address] [place] [address] Performed By: #### L [id number] #### [facility] CLIA [id number] [address] [place] [address] [place] PROTEIN ELECTROPHORESIS SERU M (P)on 03-07-2023 Albumin [Mass/Vol] 4.60 g/dL Normal 3.43-5.41 [facility] Comment on above: Order Comment: Speci men Type: BLOOD SPECIMEN Ordering Facility: [facility] Address: [address] [place] [address] Performed By: #### L [id number] #### [facility] CLIA [id number] [address] [place] [address] [place] Alpha 1 globulin Elph [Mass/Vol] 0.26 g/dL Normal 0.18-0.43 [facility] Comment on above: Order Comment: Speci men Type: BLOOD SPECIMEN Ordering Facility: [facility] Address: [address] [place] [address] Performed By: #### L [id number] #### [facility] CLIA [id number] [address] [place] [address] [place] Alpha 2 globulin Elph [Mass/Vol] 0.52 g/dL Normal 0.42-0.98 [facility] Comment on above: Order Comment: Speci men Type: BLOOD SPECIMEN Ordering Facility: [facility] Address: [address] [place] [address] Performed By: #### L [id number] #### [facility] CLIA [id number] [address] [place] [address] [place] Beta globulin Elph [Mass/Vol] 0.55 g/dL Low 0.61-1.17 [facility] Comment on above: Order Comment: Speci men Type: BLOOD SPECIMEN Ordering Facility: [facility] Address: [address] [place] [address] Performed By: #### L [id number] #### [facility] CLIA [id number] [address] [place] [address] [place] Gamma globulin Elph [Mass/Vol] 0.96 g/dL Normal 0.53-1.51 [facility] Comment on above: Order Comment: Speci men Type: BLOOD SPECIMEN Ordering Facility: [facility] Address: [address] [place] [address] Performed By: #### L [id number] #### [facility] CLIA [id number] [facility] [place] [address] [place] INTERPRETATION COMMENT FOR PROTEIN ELECTROPHORESIS Recommend monoclonal protein analysis to further characterize the M protein. [facility] Comment on above: Order Comment: Speci men Type: BLOOD SPECIMEN Ordering Facility: [facility] Address: [address] [place] [address] Performed By: #### L [id number] #### [facility] CLIA [id number] [address] [place] [address] [place] M-PROTEIN LOCATION Gamma Fraction 1 Normal [facility] Comment on above: Order Comment: Speci men Type: BLOOD SPECIMEN Ordering Facility: [facility] Address: [address] [place] [address] Performed By: #### L [id number] #### [facility] CLIA [id number] [facility] [place] [address] [place] Protein Fractions [Interp] An M protein is identified on protein electrophoresis. Abnormal No definitive M protein is identified on protein electrophore sis. [facility] Comment on above: Order Comment: Speci men Type: BLOOD SPECIMEN Ordering Facility: [facility] Address: [address] [place] [address] Performed By: #### L [id number] #### [facility] CLIA [id number] [address] [place] [address] [place] Protein.monoclonal Elph [Mass/Vol] 0.42 g/dL High <=0.00 [facility] Comment on above: Order Comment: Speci men Type: BLOOD SPECIMEN Ordering Facility: [facility] Address: [address] [place] [address] Performed By: #### L [id number] #### [facility] CLIA [id number] [address] [place] [address] [place] SPE STAFF REVIEW Reviewed by Jane Mcconnell M.D., Ph.D [facility] Comment on above: Order Comment: Speci men Type: BLOOD SPECIMEN Ordering Facility: [facility] Address: [address] [place] [address] Performed By: #### L [id number] #### [facility] CLIA [id number] [address] [place] [address] [place] Prot SerPl-mCncon 03-07-2023 Protein [Mass/Vol] 6.9 g/dL Normal 6.3-8.0 [facility] Comment on above: Order Comment: Speci men Type: BLOOD SPECIMEN Ordering Facility: [facility] Address: [address] [place] [address] Performed By: #### L [id number] #### [facility] CLIA [id number] [address] [place] [address] [place] Absolute lymphocyte countOrd ered By: Jerel Bennett on 01-06-2023 Lymphocytes Auto (Unsp spec) [#/Vol] 1.85 10*3/uL 0.83-4.51 [facility] Basophil percentageOrdered B y: Jerel Bennett on 01-06-2023 Basophils/100 WBC (Bld) 0.7 % 0-1 [facility] Bilirubin [Mass/Vol] 0.40 mg/dL 0.20-1.00 [facility] Comment on above: For patients on eltr ombopag therapy, use of Dimension Pearson TBIL is not recommended. Chloride [Moles/Vol] 107 mmol/L 98-107 [facility] Cholesterol [Mass/Vol] 255 mg/dL <200 [facility] Comment on above: <200 mg/dL Desirable 200-240 mg/dL Borderline >240 mg/dL High Risk Eosinophils/100 WBC (Bld) 4.2 % 0-5 [facility] Glucose [Mass/Vol] 113 mg/dL 74-106 [facility] Comment on above: Fasting Glucose resu lt from 100 to 125 mg/dL suggests IMPAIRED HOMEOSTASIS per A.D.A. criteria. Neutrophils (Bld) [#/Vol] 4.2 10*3/uL 2.0-7.7 [facility] Neutrophils/100 WBC (Bld) 60.0 % 47-70 [facility] Potassium [Moles/Vol] 4.7 mmol/L 3.5-5.1 [facility] Protein [Mass/Vol] 7.5 g/dL 6.4-8.2 [facility] Sodium [Moles/Vol] 140 mmol/L 136-145 [facility] Triglyceride [Mass/Vol] 389 mg/dL <199 [facility] Comment on above: The drugs N-Acetylcy steine and Metamizole may falsely depress this assay.Serum Triglycerides Reference Interval Normal <150 mg/dL Borderline high 150 - 199 mg/dL High 200 - 499 mg/dL Very High > or = 500 mg/dL WBC (Bld) [#/Vol] 6.9 10*3/uL 4.4-11.0 [facility] Blood erythrocytes count (nu mber/volume)Ordered By: Jerel Bennett on 01-06-2023 RBC (Bld) [#/Vol] 4.81 10*6/uL 4.6-6.[address] [facility] Blood hemoglobin measurement (mass/volume)Ordered By: Jerel Bennett on 01-06-2023 Hemoglobin (Bld) [Mass/Vol] 14.2 g/dL 13.0-16.5 [facility] Blood lymphocytes/100 leukoc ytesOrdered By: Jerel Bennett on 01-06-2023 Lymphocytes/100 WBC (Bld) 26.7 % 19-41 [facility] Blood monocytes/100 leukocyt esOrdered By: Jerel Bennett on 01-06-2023 Monocytes/100 WBC (Bld) 7.5 % 0-10 [facility] Blood platelet mean volumeOr dered By: Jerel Bennett on 01-06-2023 Platelet mean volume (Bld) [Entitic vol] 10.2 fL 6.2-12.0 [facility] Determination of erythrocyte mean corpuscular volume (MCV)Ordered By: Jerel Bennett on 01-06-2023 MCV (RBC) [Entitic vol] 90.9 fL 80-94 [facility] Hematocrit Auto (Bld) [Volum e fraction]Ordered By: Jerel Bennett on 01-06-2023 Hematocrit (Bld) [Volume fraction] 43.7 % 40-54 [facility] Laboratory - Chemistry and C hemistry - challengeOrdered By: Jerelhector Bennett on 01-06-2023 ALP [Catalytic activity/Vol] 86 U/L 45-117 [facility] ALT [Catalytic activity/Vol] 61 U/L 16-61 [facility] CO2 [Moles/Vol] 29.0 mmol/L 21.0-32.0 [facility] Globulin (S) [Mass/Vol] 3.5 g/dL 2.2-4.2 [facility] Magnesium [Mass/Vol] 2.3 mg/dL 1.6-2.6 [facility] Urea nitrogen/Creatinine [Mass ratio] 21.6 mg/mg 10-20 [facility] Laboratory - Hematology and Cell countsOrdered By: Jerel Bennett on 01-06-2023 Erythrocyte distribution width (RBC) [Entitic vol] 42.3 fL 35.1-43.9 [facility] Erythrocyte distribution width (RBC) [Ratio] 12.6 % 11.6-14.6 [facility] Immature granulocytes/100 WBC (Bld) 0.900 % 0.0-0.9 [facility] Comment on above: IG% - Immature Granu locytes (promyelocytes, myelocytes and metamyelocytes) > 1% indicates that a LEFT SHIFT is Present. MCH (RBC) [Entitic mass] 29.5 pg 27.0-32.0 [facility] Nucleated RBC/100 WBC (Bld) [Ratio] 0 % 0-5 [facility] [Mass/Vol]Or dered By: Jerel Bennett on 01-06-2023 MCHC (RBC) [Mass/Vol] 32.5 g/dL 32-36 [facility] No Panel InformationOrdered By: Jerel Bennett on 01-06-2023 Estimated GFR (MDRD) Amer 92 mL/min >60 [facility] Comment on above: GFR Calc Estimated GFR (MDRD) Non-Af Amer 76 mL/min >60 [facility] Comment on above: Non- GFR Calc Thyroid Stimulating Hormone (TSH) 4.13 uIU/mL 0.358-3.74 [facility] Platelets bldOrdered By: Bhargav Bennett on 01-06-2023 Platelets (Bld) [#/Vol] 181 10*3/uL 150-450 [facility] Serum or plasma albumin jasper urement (mass/volume)Ordered By: Jerel Bennett on 01-06-2023 Albumin [Mass/Vol] 4.0 g/dL 3.2-5.0 [facility] Serum or plasma albumin/glob ulin mass ratioOrdered By: Jerel Bennett on 01-06-2023 Albumin/Globulin [Mass ratio] 1.1 {ratio} 0.9-2.4 [facility] Serum or plasma calcium jasper urement (mass/volume)Ordered By: Jerel Bennett on 01-06-2023 Calcium [Mass/Vol] 9.1 mg/dL 8.5-10.1 [facility] Serum or plasma cholesterol in HDL measurement (mass/volume)Ordered By: Jerel Bennett on 01-06-2023 Cholesterol in HDL [Mass/Vol] 37 mg/dL >40 [facility] Comment on above: The drugs N-Acetylcy steine and Metamizole may falsely depress this assay. Reference Range HDL <40 mg/dL Low HDL Cholesterol HDL >or= 60 mg/dL High HDL Cholesterol Serum or plasma cholesterol in VLDL measurement (mass/volume)Ordered By: Jerel Bennett on 01-06-2023 Cholesterol in VLDL [Mass/Vol] 78 mg/dL 5-40 [facility] Serum or plasma creatinine m easurement (mass/volume)Ordered By: Jerel Bennett on 01-06-2023 Creatinine [Mass/Vol] 1.02 mg/dL 0.70-1.30 [facility] Comment on above: The validity of the calculated GFR & GFRAA in patients over 70 years has not been determined. Clinical correlation is essential. Serum or plasma low density lipoprotein (LDL) cholesterol measurement (mass/volume)Ordered By: Jerel Bennett on 01-06-2023 Cholesterol in LDL [Mass/Vol] 140 mg/dL 0-130 [facility] Serum or plasma urea nitroge n measurement (mass/volume)Ordered By: Jerle Bennett on 01-06-2023 Urea nitrogen [Mass/Vol] 22 mg/dL 7-18 [facility] Thin prep Papanicolaou smear with manual screeningOrdered By: Jerel Bennett on 01-06-2023 Thin prep Papanicolaou smear with manual screening 29 U/L 15-37 [facility] Thin prep Papanicolaou smear with manual screening 4 5-15 [facility] Whole blood hemoglobin A1c/t otal hemoglobin ratio (mass fraction)Ordered By: Jerel Bennett on 01-06-2023 HbA1c (Bld) [Mass fraction] 6.1 % 3.8-5.6 [facility] Comment on above: Normal < 5.7 % Predi abetic 5.7 - 6.4 % Diabetic >or= 6.5 % Please note range changes. PROSTATE SPECIFIC AGon 11-18 Prostate specific Ag [Mass/Vol] 5.27 ng/mL High 0.00 - 4.00 [facility] Comment on above: Result Comment: The FDA requires that the method used for PSA assay be reported to the physician. Values obtained with different assay methods must not be used interchangeably. This test was performed at [facility] using the [employer] PSA assay is a two-site immunoenzymatic sandwich assay. The assay is approved for measurement of prostate-specific antigen (PSA)in serum and may be used in conjunction with a digital rectal examination in men 50 years and older as an aid in detection of prostate cancer. 8-Wyvnb-ljoxsgstq inhibitors (e.g. Proscar, Finasteride, Avodart, Dutasteride and Dominique) for the treatment of BPH have been shown to lower PSA levels by an average of 50% after 6 months of treatment. Performed By: #### P #### [address] [id number] Laboratory - Hematology and Cell countson 11-14-2022 HbA1c (Bld) [Mass fraction] 6.0 % 4.2-6.3 [facility] Office Visit (Urology)on Follow-up visit Diagnoses/Problems Assessed Elevated PSA (790.93) (R97.20) Patient Discussion/Summary PSA has come down significantly, very reassuring. He would like to keep a close eye on things given his family hx. Will get a PSA in 6 mo and see over that time via [facility]. I spent 12 minutes of dedicated EANDM time, including preparation and review of records/notes/data, time spent with patient/family, and documentation Chief Complaint A telephone visit (audio only) between the patient (at the originating site) and the provider (at the distant site) was utilized to provide this telehealth service. Verbal consent was requested and obtained from JENNIFER TIDWELL on this date, 03/31/2022 01:20 PM , for a telehealth visit. ePSA History of Present I[age]bue24 years old male presents today with elevated [...] was obtained instead. 03/31/22 - seen over [facility]. in [place] currently ExoDx 03/2021 24 PSA history 03/2022 - 4.1 12/2021 - 7.03 (11% free) 10/2021 - 5.96 Active Problems Problems Elevated PSA (790.93) (R97.20) Erectile dysfunction (607.84) (N52.9) Allergies Medication Percocet TABS Recorded By: Brii Barajas; 01/18/2022 10:47:19 AM traMADol-Acetaminophen TABS Recorded By: Brii Barajas; 01/18/2022 10:47:51 AM Vicodin TABS Recorded By: Brii Barajas; 01/18/2022 10:47:19 AM Current Meds Medication NameInstruction Sildenafil Citrate 100 MG Oral TabletTAKE 1 TABLET DAILY 1 HOUR BEFORE NEEDED Signatures Electronically signed by : Yusuf Busby MD; Mar 31 2022 1:29PM EST (Author) Normal [facility] Office Visit (Urology)on Follow-up visit Diagnoses/Problems Assessed Elevated PSA (790.93) (R97.20) Orders Elevated PSA Prostate Specific Antigen; Status:In Progress - Specimen/Data Collected; Done: 24Mar2022 Perform:Lab Services - Lab To Draw (Blood Test); Due:22Jun2022;Ordered; For:Elevated PSA; Ordered By:Yusuf Busby; Patient Discussion/Summary Discussed his PSA trend, I recommend proceeding with repeat PSa since it has been about 3 months. If it continues to rise, will then get a biopsy. If the PSa stays the same or goes down, will hold off. He will get his PSA test done today. Will follow up with results in 1 week over V By signing my name below, I, Ileana Espinosaibe, attest that this documentation has been prepared under the direction and in the presence of Dr. Yusuf Busby. All medical record entries made by the Scribe were at my direction and personally dictated by me. I have reviewed the chart and agree that the record accurately reflects my personal performance of the history, physical exam, discussion and plan. Chief Complaint [facility] ED, ExoDx History of Present Ok[place]31 years old male presents today with elevated [...] he is claustrophobic. ExoDx was obtained instead. ExoDx 03/2021 24 PSA history 12/2021 - 7.03 (11% free) 10/2021 - 5.96 Active Problems Problems Elevated PSA (790.93) (R97.20) Erectile dysfunction (607.84) (N52.9) Allergies Medication Percocet TABS Recorded By: Brii Barajas; 01/18/2022 10:47:19 AM traMADol-Acetaminophen TABS Recorded By: Brii Barajas; 01/18/2022 10:47:51 AM Vicodin TABS Recorded By: Brii Barajas; 01/18/2022 10:47:19 AM Current Meds Medication NameInstruction Sildenafil Citrate 100 MG Oral TabletTAKE 1 TABLET DAILY 1 HOUR BEFORE NEEDED Signatures Electronically signed by : Yusuf Busby MD; Mar 24 2022 9:08AM EST (Author) Normal [facility] PROSTATE SPECIFIC AGon 03-24 Prostate specific Ag [Mass/Vol] 4.11 ng/mL High 0.00 - 4.00 [facility] Comment on above: Result Comment: The FDA requires that the method used for PSA assay be reported to the physician. Values obtained with different assay methods must not be used interchangeably. This test was performed at [facility] using the [employer] PSA assay is a two-site immunoenzymatic sandwich assay. The assay is approved for measurement of prostate-specific antigen (PSA)in serum and may be used in conjunction with a digital rectal examination in men 50 years and older as an aid in detection of prostate cancer. 6-Eajdl-zhwyeiwdv inhibitors (e.g. Proscar, Finasteride, Avodart, Dutasteride and Dominique) for the treatment of BPH have been shown to lower PSA levels by an average of 50% after 6 months of treatment. Performed By: #### P SA #### [address] [id number] Prostate Specific Antigenon 03-24-2022 Prostate specific Ag [Mass/Vol] 4.11 ng/mL above high threshold See Below [facility] Work Phone: Comment on above: Reference Range: 0.0 0 - 4.00The FDA requires that the method used for PSA assay be reported to the physician. Values obtained with different assay methods must not be used interchangeably. This testwas performed at [facility] using the [employer] PSA assay is a two-site immunoenzymatic sandwich assay. The assay is approved for measurement of prostate-specific antigen (PSA)in serum and may be used in conjunction with a digital rectal examination in men 50 years and older as an aid in detection of prostate cancer.7-Jhwks-kbllatkpb inhibitors (e.g. Proscar, Finasteride, Avodart, Dutasteride and Dominique) for the treatment of BPH have been shown to lower PSA levels by an average of 50% after 6 months of treatment. Tobacco Screening.on 023 Fall risk assessment a) No falls within the last year [facility]-Aiejtkr-Pr avelina Work Phone: Tobacco use status CPHS b) No JE-Dcakuor-Nl [employer] Work Phone: IO Ultrasound, measurement p ost-void resid urine and/or bl cap; no imagon 01-18-2022 IO Ultrasound, measurement post-void resid urine and/or bl cap; no imag 93 mL BS-Dilncok-Ms rma 411 DO Work Phone: Office Visit (Urology)on Follow-up visit Diagnoses/Problems Assessed Elevated PSA (790.93) (R97.20) Erectile dysfunction (607.84) (N52.9) Orders Elevated PSA MRI Prostate Screening (Self Pay Exam); Status:Hold For - Scheduling,Retrospectiv e By Protocol Authorization; Requested for:18Jan2022; Perform: Radiology Services Imaging; Due:[id number]; Last Updated By:Ani Sena; 01/18/2022 11:23:36 AM;Ordered; For:Elevated PSA; Ordered By:Yusuf Busby; Radiologist to Determine Optimal Study : Y Does the patient have a Cochlear Implant, Pacemaker, Defibrilator, Pacing Wire, Brain Aneurysm Clip, Implanted Nerve or Bone Graft Simulator, Implanted Breast Tissue Technology Architect, Glucose Monitor, or Neulasta Device? : No What are the patient's signs and symptoms? : elevated PSA Erectile dysfunction Start: Sildenafil Citrate 100 MG Oral Tablet; TAKE 1 TABLET DAILY 1 HOUR BEFORE NEEDED Rx By: Yusuf Busby; Dispense: 30 Days ; #:30 Tablet; Refill: 11;For: Erectile dysfunction; VANGIE = N; Verified Transmission to [employer] [facility]; Last Updated By: Jacob Dick; 01/18/2022 11:31:53 AM Health Maintenance IO Ultrasound, measurement post-void resid urine and/or bl cap; no imag; Status:Resulted - Requires Verification,Retrospect jovan Authorization; Done: 18Jan2022 10:54AM Performed:In Office; Due:[id number]; Last Updated By:Brii Barajas; 01/18/2022 10:55:45 AM;Ordered; For:Health Maintenance; Ordered By:Yusuf Busby; Patient Discussion/Summary I reviewed the AUA guideline on the early detection of prostate cancer with the patient. I discussed that PSA screening, or early detection, is done for the purpose of reducing prostate cancer mortality. I reviewed the possible causes for elevated PSA, including inflammation, infection, prostate cancer, etc. His PSA is elevated from baseline and persistently elevated on follow up testing. Given his expected life expectancy over 15 years, I recommended we proceed with further evaluation with TRUS biopsy, either preceded by an MRI or without pre-biopsy MRI. I reviewed the literature regarding pre-biopsy MRI to increase the yield of clinically significant prostate cancers on biopsy and potentially avoid an unnecessary biopsy. We discussed the risks of biopsy including infection, bleeding, retention. We discussed the risk of transient hematuria, hematochezia, and hematospermia. He would like to proceed with MRI, discussed possible out of pocket cost. For ED, he would like to try medication. Will start him on sildenafil 100mg prn. s/e and contraindication to nitrates discussed. Will follow up in 1 month over [facility] to reassess and discuss results. By signing my name below, I, Vince Espinosa, attest that this documentation has been prepared under the direction and in the presence of Dr. Yusuf Busby. All medical record entries made by the Scribmei were at my direction and personally dictated by me. I have reviewed the chart and agree that the record accurately reflects my personal performance of the history, physical exam, discussion and plan. Chief Complaint evaluate psa History of Present Knnfokd52 years old male presents today with elevated PSA. Was put on cipro last year when PSa was initially high. Family history includes father had prostate ca at 83 and bone marrow ca. Denies any urinary concerns. He is diabetic. PVR 93cc. ED are adequate, on and off, would like to try medication for this. PSA history 12/2021 - 7.03 (11% free) 10/2021 - 5.96 Active Problems Problems Elevated PSA (790.93) (R97.20) Erectile dysfunction (607.84) (N52.9) Allergies Medication Percocet TABS Recorded By: Brii Barajas; 01/18/2022 10:47:19 AM traMADol-Acetaminophen TABS Recorded By: Brii Barajas; 01/18/2022 10:47:51 AM Vicodin TABS Recorded By: Brii Barajas; 01/18/2022 10:47:19 AM Vitals Vital Signs Recorded: 18Jan2022 10:42AM Soruwggptxm15.3 F Heart Rate64 [id number] Klvldtdpo23 Kmtmrd445 lb Physical Exam 1. Constitutional: Vitals reviewed as above, NAD, Well-developed, Well-nourished 2. Respiratory: Unlabored breathing, no audible wheezes, no use of accessory muscles 3. Cardiovascular: No JVD, extremities perfused, no edema 4. Abdomen: Soft, non-tender, non-distended, no masses or hernia. No CVA tenderness. 5. Skin: no visible lesions, plaque, rashes, jaundice 6. Neuro: Gait normal, no focal neurologic deficit 7. Psychiatric: Mood and affect normal and appropriate, alert and oriented 8. : Phallus: normal Circumcised phallus, no lesions, no plaques. Meatus: Orthotopic and patent. Testes: Right Side - Testicle descended, without tenderness or mass. Epididymis is normal, non-tender. No hydrocele. No varicocele. Left Side - Testicle descended, without tenderness or mass. Epididymis is normal, non-tender. No hydrocele. No varicocele. Scrotum: No lesions or erythema. Inguinal canal: No hernia or tenderness. Prostate: Grade 3, asymmetric enlargement on L, but not firm Results/Data IO Ultrasou (more content not included)... Normal [facility] No Panel Informationon 01-11 Percent Free Prostate Specific Ag 0.67 ng/mL N/A [facility] Work Phone: Comment on above: Roxy ECLIA methodol ogy. Prostate Specific Ag, Ultra-Sensitv 5.740 ng/mL 0.000-4.000 [facility] Work Phone: Comment on above: Roxy ECLIA methodol ogy.According to the [place] [employer], Serum PSAshould decrease and remain at undetectable levels afterradical prostatectomy. The AUA defines biochemicalrecurrence as an initial PSA value 0.200 ng/mL or greaterfollowed by a subsequent confirmatory PSA value 0.200 ng/mLor greater. Values obtained with different assay methods orkits cannot be used interchangeably. Results cannot beinterpreted as absolute evidence of the presence or absenceof malignant disease. Prostate Specific Antigen Total 7.03 ng/mL 0.0-4.0 [facility] Work Phone: Comment on above: This test was perfor med using the TPSA assay method for [employer] chemistry system. Values obtained with differentassay methods cannot be used interchangably.When changing PSA assays in the course of monitoring apatient, additional sequential testing should be carriedout to confirm baseline values. Thyroid Stimulating Hormone (TSH) 2.06 uIU/mL 0.358-3.74 [facility] Work Phone: Serum or plasma free prostat e specific antigen/total prostate specific antigen ratioon 01-11-2022 Free PSA/Total PSA [Mass fraction] 11.7 % . [facility] Work Phone: Comment on above: The table below list s the probability of prostate cancer formen with non-suspicious GAIL results and total PSA between4 and 10 ng/mL, by patient age (Shelia et al, RENETTA 1998,[id number]). % Free PSA 50-64 yr 65-75 yr 0.00-10.00% 56% 55% 10.01-15.00% 24% 35% 15.01-20.00% 17% 23% 20.01-25.00% 10% 20% >25.00% 5% 9%Please note: Shelia et al did not make specific recommendations regarding the use of percent free PSA for any other population of men.Performed at: [facility] [id number] Director: Andrade Walker PhD, Phone: [phone] Absolute lymphocyte counton 11-16-2021 Lymphocytes Auto (Unsp spec) [#/Vol] 1.71 10*3/uL 0.83-4.51 [facility] Work Phone: Basophil percentageon 2021 Basophils/100 WBC (Bld) 0.6 % 0-1 [facility] Work Phone: Bilirubin [Mass/Vol] 0.40 mg/dL 0.20-1.00 [facility] Work Phone: Comment on above: For patients on eltr ombopag therapy, use of Dimension Pearson TBIL is not recommended. Chloride [Moles/Vol] 105 mmol/L 98-107 [facility] Work Phone: Cholesterol [Mass/Vol] 175 mg/dL <200 [facility] Work Phone: Comment on above: <200 mg/dL Desirable 200-240 mg/dL Borderline >240 mg/dL High Risk Eosinophils/100 WBC (Bld) 1.0 % 0-5 [facility] Work Phone: Glucose [Mass/Vol] 112 mg/dL 74-106 [facility] Work Phone: Comment on above: Fasting Glucose resu lt from 100 to 125 mg/dL suggests IMPAIRED HOMEOSTASIS per A.D.A. criteria. Neutrophils (Bld) [#/Vol] 4.4 10*3/uL 2.0-7.7 [facility] Work Phone: Neutrophils/100 WBC (Bld) 64.2 % 47-70 [facility] Work Phone: Potassium [Moles/Vol] 4.5 mmol/L 3.5-5.1 [facility] Work Phone: Protein [Mass/Vol] 7.6 g/dL 6.4-8.2 [facility] Work Phone: Sodium [Moles/Vol] 139 mmol/L 136-145 [facility] Work Phone: Triglyceride [Mass/Vol] 248 mg/dL <199 [facility] Work Phone: Comment on above: The drugs N-Acetylcy steine and Metamizole may falsely depress this assay.Serum Triglycerides Reference Interval Normal <150 mg/dL Borderline high 150 - 199 mg/dL High 200 - 499 mg/dL Very High > or = 500 mg/dL WBC (Bld) [#/Vol] 6.9 10*3/uL 4.4-11.0 [facility] Work Phone: Blood erythrocytes count (nu mber/volume)on 11-16-2021 RBC (Bld) [#/Vol] 4.74 10*6/uL 4.6-6.[address] [facility] Work Phone: Blood hemoglobin measurement (mass/volume)on 11-16-2021 Hemoglobin (Bld) [Mass/Vol] 14.3 g/dL 13.0-16.5 [facility] Work Phone: Blood lymphocytes/100 leukoc yteson 11-16-2021 Lymphocytes/100 WBC (Bld) 24.7 % 19-41 [facility] Work Phone: Blood monocytes/100 leukocyt eson 11-16-2021 Monocytes/100 WBC (Bld) 8.2 % 0-10 [facility] Work Phone: Blood platelet mean volumeon 11-16-2021 Platelet mean volume (Bld) [Entitic vol] 10.4 fL 6.2-12.0 [facility] Work Phone: Determination of erythrocyte mean corpuscular volume (MCV)on 11-16-2021 MCV (RBC) [Entitic vol] 90.5 fL 80-94 [facility] Work Phone: Hematocrit Auto (Bld) [Volum e fraction]on 11-16-2021 Hematocrit (Bld) [Volume fraction] 42.9 % 40-54 [facility] Work Phone: Laboratory - Chemistry and C hemistry - challengeon 11-16-2021 ALP [Catalytic activity/Vol] 97 U/L 45-117 [facility] Work Phone: ALT [Catalytic activity/Vol] 36 U/L 16-61 [facility] Work Phone: CO2 [Moles/Vol] 27.0 mmol/L 21.0-32.0 [facility] Work Phone: Globulin (S) [Mass/Vol] 3.6 g/dL 2.2-4.2 [facility] Work Phone: Urea nitrogen/Creatinine [Mass ratio] 22.6 mg/mg 10-20 [facility] Work Phone: [phone] Laboratory - Hematology and Cell countson 11-16-2021 HbA1c (Bld) [Mass fraction] 5.9 % 4.2-6.3 [facility] Work Phone: Erythrocyte distribution width (RBC) [Entitic vol] 40.5 fL 35.1-43.9 [facility] Work Phone: Erythrocyte distribution width (RBC) [Ratio] 12.2 % 11.6-14.6 [facility] Work Phone: Immature granulocytes/100 WBC (Bld) 1.300 % 0.0-0.9 [facility] Work Phone: Comment on above: IG% - Immature Granu locytes (promyelocytes, myelocytes and metamyelocytes) > 1% indicates that a LEFT SHIFT is Present. MCH (RBC) [Entitic mass] 30.2 pg 27.0-32.0 [facility] Work Phone: Nucleated RBC/100 WBC (Bld) [Ratio] 0 % 0-5 [facility] Work Phone: MCHC Auto (RBC) [Mass/Vol]on 11-16-2021 MCHC (RBC) [Mass/Vol] 33.3 g/dL 32-36 [facility] Work Phone: No Panel Informationon 11-16 Estimated GFR (MDRD) Amer 81 mL/min >60 [facility] Work Phone: Comment on above: GFR Calc Estimated GFR (MDRD) Non-Af Amer 67 mL/min >60 [facility] Work Phone: Comment on above: Non- GFR Calc Prostate Specific Antigen Screen 5.96 ng/mL 0.00-4.00 [facility] Work Phone: Comment on above: This test was perfor med using the TPSA assay method for [employer] chemistry system. Values obtained with differentassay methods cannot be used interchangably.When changing PSA assays in the course of monitoring apatient, additional sequential testing should be carriedout to confirm baseline values. Thyroid Stimulating Hormone (TSH) 4.63 uIU/mL 0.358-3.74 [facility] Work Phone: Platelets bldon 11-16-2021 Platelets (Bld) [#/Vol] 164 10*3/uL 150-450 [facility] Work Phone: Serum or plasma albumin jasper urement (mass/volume)on 11-16-2021 Albumin [Mass/Vol] 4.0 g/dL 3.2-5.0 [facility] Work Phone: Serum or plasma albumin/glob ulin mass ratioon 11-16-2021 Albumin/Globulin [Mass ratio] 1.1 {ratio} 0.9-2.4 [facility] Work Phone: Serum or plasma calcium jasper urement (mass/volume)on 11-16-2021 Calcium [Mass/Vol] 9.0 mg/dL 8.5-10.1 [facility] Work Phone: Serum or plasma cholesterol in HDL measurement (mass/volume)on 11-16-2021 Cholesterol in HDL [Mass/Vol] 38 mg/dL >40 [facility] Work Phone: Comment on above: The drugs N-Acetylcy steine and Metamizole may falsely depress this assay. Reference Range HDL <40 mg/dL Low HDL Cholesterol HDL >or= 60 mg/dL High HDL Cholesterol Serum or plasma cholesterol in VLDL measurement (mass/volume)on 11-16-2021 Cholesterol in VLDL [Mass/Vol] 50 mg/dL 5-40 [facility] Work Phone: Serum or plasma creatinine m easurement (mass/volume)on 11-16-2021 Creatinine [Mass/Vol] 1.15 mg/dL 0.70-1.30 [facility] Work Phone: Comment on above: The validity of the calculated GFR & GFRAA in patients over 70 years has not been determined. Clinical correlation is essential. Serum or plasma low density lipoprotein (LDL) cholesterol measurement (mass/volume)on 11-16-2021 Cholesterol in LDL [Mass/Vol] 87 mg/dL 0-130 [facility] Work Phone: Serum or plasma urea nitroge n measurement (mass/volume)on 11-16-2021 Urea nitrogen [Mass/Vol] 26 mg/dL 7-18 [facility] Work Phone: Thin prep Papanicolaou smear with manual screeningon 11-16-2021 Thin prep Papanicolaou smear with manual screening 18 U/L 15-37 [facility] Work Phone: Thin prep Papanicolaou smear with manual screening 7 5-15 [facility] Work Phone: Amb Office-Progress Notes-Pr ovideron 11-30-2020 Amb Office-Progress Notes-Provider Patient: JENNIFER TIDWELL Age: 69 years Sex: Male : 1950 Associated Diagnoses: None Author: GWENDOLYN PAVON, GEN Visit Information Visit type: Scheduled follow-up. Accompanied by: No one. Source of history: Self. Referral source: Self. History limitation: None. Chief Complaint Referred by Jerel Bennett for cardiovascular evaluation. Patient was told to have a heart murmur and was advised to be evaluated. He denies any cardiac symptoms and very active, rides bike 15 miles in a stretch approximately every other day. He is known to have hypertension hyperlipidemia and type 2 diabetes mellitus but with the diet and exercise he stopped taking lisinopril and atorvastatin and only taking half tablet of Metformin. His blood test which was done recently revealed hemoglobin A1c of 6 and normal lipid profile. Patient is a non-smoker and does not consume alcohol. Father had enlarged heart but no other family history of coronary artery disease. Chart and medications reviewed. Review of Systems Constitutional: No fever, No chills, No sweats. Eye: Negative. Ear/Nose/Mouth/Throat: Negative. Respiratory: No shortness of breath, No cough. Cardiovascular: No chest pain, No syncope. Gastrointestinal: No nausea, No vomiting. Genitourinary: Negative. Gynecologic Hematology/Lymphatics: No bruising tendency, No bleeding tendency. Endocrine: Negative. Musculoskeletal: Negative. Integumentary: No rash, No abrasions. Psychiatric: No anxiety, No depression. Health Status Allergies: Allergies (2) Active Reaction Hydrocodone-PPA None Documented traMADol None Documented Current medications: Home Medications (1) Active metFORMIN 500 mg oral tablet 500 mg = 1 tabs, ORAL, BID Problem list: Active Problems (4) Hypertension Mixed hyperlipidemia due to type 2 diabetes mellitus ALLISON (obstructive sleep apnea) Type 2 diabetes mellitus Histories Past Medical History: No qualifying data available Family History: Brother Diabetes.. Sister Diabetes.. Father Diabetes.. High blood pressure.... Procedure history: No active procedure history items have been selected or recorded. Social History Social & Psychosocial History Social History Alcohol Current Substance Abuse Denies Substance Abuse Tobacco Denies Tobacco Use Psychosocial History No active psychosocial history has been recorded. Physical Examination Temperature 97.8 (14:36) Systolic Blood Pressure 120 (14:47) Diastolic Blood Pressure 70 (14:47) Pulse 57 (14:36) SpO2 No result Respiratory Rate No result VS/Measurements Documented vital signs, Vital Signs (last 24 hrs) Last Charted Heart Rate Apical L 57bpm (NOV 30 14:36) SBP 120 mmHg (NOV 30 14:47) DBP 70 mmHg (NOV 30 14:47) BMI 22.2 (NOV 30 14:36) General: Alert and oriented, No acute distress. Skin: No cyanosis, Not jaundiced. Eye: Normal conjunctiva. HENT: Normocephalic. Neck: Supple, Non-tender, No carotid bruit, No jugular venous distention, No lymphadenopathy, No thyromegaly. Respiratory: Symmetrical chest wall expansion, No chest wall tenderness. Breath sounds: Bilateral, Anterior, Posterior, No wheezing, No crackles present. Cardiovascular: Normal rate, Regular rhythm, No murmur, No gallop, Good pulses equal in all extremities, Normal peripheral perfusion, No edema. Gastrointestinal: Soft, Non-tender, Normal bowel sounds, No organomegaly. Genitourinary: No costovertebral angle tenderness. Lymphatics: No lymphadenopathy neck, axilla, groin. Musculoskeletal: Normal range of motion, Normal strength, No tenderness, No deformity. Integumentary: Warm. Neurologic: Alert, Oriented, No focal deficits. Psychiatric: Cooperative, Normal judgment. Review / Management No qualifying data available Impression and Plan 1. Blood pressure is controlled without any medications. 2. Hyperlipidemia good control with the diet and exercise. 3. Type 2 diabetes mellitus good control. 4. No cardiac murmur heard. Plan. 1. ECG done today normal sinus rhythm with heart rate of 57 and within normal limits. 2. Reassured the patient, has normal cardiovascular examination. 3. No further cardiac work-up needed at this point. 4. Follow-up appointment with me as needed. Normal [facility] Discharge Educationon 2020 Discharge Education Diabetes and Endocrinology Diabetes: Basic Care Regular tests and vaccinations can help you stay healthy and prevent problems caused by your diabetes. Ask your doctor about what care you need and what to expect. A1c This blood test checks your average blood sugar for the past 3 months. It can help keep track of long-term control of your blood sugar levels. Most doctors think the A1c test is the best way to see how well you are controlling diabetes. You may get tested when you are first diagnosed with diabetes and then 2 or more times a year after that. You do not have to go without eating before getting an A1c test. Foot inspection Over time, high blood sugar can damage the nerves in your feet and blood vessels all through your body, and affect how well you fight infection. Treating a minor foot injury early can keep it from becoming a serious problem. Inspect your feet at least one time a day with a mirror. If you cannot see well, have someone help you. Check for discolored skin, blisters, peeling or broken skin, corns, calluses, moisture, sores, and ingrown toenails. Note any areas that tingle or are numb. Ask your doctor to check your feet during each visit. He or she may notice a foot problem you have missed. If you have any questions about a foot problem, call your doctor right away. Your hands also can be easily injured. To protect them, use pot holders and avoid hot water when cooking. Always check the temperature of your bath or shower with a part of your body that has normal temperature sensation, such as your elbow. Do not use your feet to check the temperature. Foot exam You'll need a foot exam by your doctor at least one time a year. Your doctor will check whether you can sense light touch or pressure. If you cannot feel anything in certain spots, you may be at higher risk for a sore (ulcer) on your foot. Dilated eye exam Everyone with diabetes should have regular eye exams (also called dilated retinal exams). Diabetes can lead to eye problems that cause vision loss or blindness. By the time you notice any vision problems, your eyes may already be seriously damaged. This exam can help detect symptoms early, and early treatment may help protect your vision. If you have diabetes, have this test every year, or more often if your doctor says to. If your eye exam results are normal, your doctor may consider follow-up exams every 2 years instead of every year. Cholesterol and triglyceride test Your doctor will want to routinely check the amount of fat, or cholesterol, in your blood. High cholesterol raises your risk of a heart attack and stroke. People who have diabetes are at high risk for heart disease. And a person who has diabetes and high cholesterol has an even greater risk. The level of triglycerides, another type of fat, may be higher in patients with diabetes. This may cause serious problems such as damage to the pancreas (pancreatitis). The link between high triglycerides and heart disease is not as clear. Albumin test This is a urine test that can detect kidney damage caused by diabetes. Microalbuminuria means you have small amounts of albumin in your urine. This is an early sign that you may have a problem with your kidneys. You may need more than one test to find out how well your kidneys are working. The [place] [employer] recommends yearly urine tests for people with diabetes. ? With type 2 diabetes, you should have the test when first diagnosed, and then each year. ? With type 1 diabetes, you should have the test each year starting 5 years after diagnosis. ? If you have either type of diabetes and are , you may need testing. Your doctor also may want to measure how well your kidneys are filtering blood. This is called glomerular filtration rate (GFR). Your doctor may give you a yearly creatinine test to estimate your GFR. Creatinine is a chemical that builds up in your blood when your kidneys are not working well. Your doctor may have you collect your urine for a 24-hour period. Dental exam If you have diabetes, you need to take good care of your mouth to avoid problems such as infections or gum disease. Have a dental exam every 6 months, or more often if your doctor or dentist says to. If you have any problems with your teeth or gums, talk to your dentist. Vaccines Certain vaccines are recommended for people who have diabetes: ? Flu shot. A yearly dose prepares your body to fight the flu (influenza) virus if you are exposed. If you are older or your immune system is not working well, the vaccine may not work as well. But even if the vaccine does not stop you from getting the flu, you may not be as sick if you do get it. ? Pneumococcal vaccine. Two different types of pneumococcal shots are recommended for people ages 65 and older. People younger than 65 may need only one type of vaccine. People with diabetes, especially those with heart or kidney disease, are at high risk for serious problems, hospitalizatio (more content not included)... Normal [facility] Provider Letter - Ambulatory on 11-30-2020 Provider Letter - Ambulatory JEREL BENNETT, [address] [place] [address] RE: JENNIFER TIDWELL - 1950 Dear JEREL BENNETT This document is confidential and intended solely for the use of the individual or entity to which they are addressed. If you are not the named addressee, please disregard and do not disseminate, distribute or copy this information. If you are not the intended recipient you are notified that any disclosure of this information and its contents are strictly prohibited. If you have any questions about this document, please contact the office. Sincerely, GWENDOLYN PAVON, [facility] The following document(s) were included in the letter: November 30, 2020 14:47:00 EDT - (11/30/2020) Cardiology Office Note with BMI Normal [facility] Vital Signs Date Time Vital Sign Value Performing Clinician Facility 09-16-2024 18:06-0400 Body height 175.3 cm [facility] 09-16-2024 18:06-0400 Body mass index (BMI) [Ratio] 22.15 kg/m2 Th[facility] 09-16-2024 18:06-0400 Body temperature 97.59 [degF] [facility] 09-16-2024 18:06-0400 Body weight 68.04 kg Th[facility] 09-16-2024 18:06-0400 Diastolic blood pressure 70 mm[Hg] Thacker MD Work [facility]: [facility] [facility] 09-16-2024 18:06-0400 Heart rate 68 /min Thacker MD Work Phone: [facility] 09-16-2024 18:06-0400 Respiratory rate 20 /min Thacker MD Work Phone: [facility] 09-16-2024 18:06-0400 SaO2% (BldA) [Mass fraction] 97 % Thacker MD Work Phone: [facility] 09-16-2024 18:06-0400 Systolic blood pressure 121 mm[Hg] Thacker MD Work Phone: [facility] 09-13-2024 09:01-0400 Body height 175.3 cm Yusuf Dean DPM Work Phone: [facility] 09-13-2024 09:01-0400 Body mass index (BMI) [Ratio] 22.59 kg/m2 Yusuf Dean DPM Work Phone: [facility] 09-13-2024 09:01-0400 Body temperature 98.6 [degF] Yusuf Dean DPM Work Phone: [facility] 09-13-2024 09:01-0400 Body weight 69.4 kg Yusuf Dean DPM Work Phone: [facility] 09-06-2024 08:59-0400 Body mass index (BMI) [Ratio] 22.66 kg/m2 Braydon Tellez MD Work Phone: [facility] 09-06-2024 08:59-0400 Body temperature 97.5 [degF] Braydon Tellez MD Work Phone: [facility] 09-06-2024 08:59-0400 Body weight 69.6 kg Braydon Tellez MD Work Phone: [facility] 09-06-2024 08:59-0400 Diastolic blood pressure 74 mm[Hg] Braydon Tellez MD Work Phone: [facility] 09-06-2024 08:59-0400 Heart rate 57 /min Braydon Tellez MD Work Phone: [facility] 09-06-2024 08:59-0400 Respiratory rate 16 /min Braydon Tellez MD Work Phone: [facility] 09-06-2024 08:59-0400 SaO2% (BldA) [Mass fraction] 96 % Braydon Tellez MD Work Phone: [facility] 09-06-2024 08:59-0400 Systolic blood pressure 120 mm[Hg] Braydon Tellez MD Work Phone: [facility] 08-21-2024 15:35-0400 Body height 177.8 cm Jerel RAMOS Work Phone: [facility] 08-12-2024 13:30-0400 Diastolic blood pressure 58 mm[Hg] Erin Rivera MD Work Phone: [facility] 08-12-2024 13:30-0400 Heart rate 53 /min Erin Rivera MD Work Phone: [facility] 08-12-2024 13:30-0400 Respiratory rate 18 /min Erin Rivera MD Work Phone: [facility] 08-12-2024 13:30-0400 SaO2% (BldA) [Mass fraction] 96 % Erin Rivera MD Work Phone: [facility] 08-12-2024 13:30-0400 Systolic blood pressure 110 mm[Hg] Erin Rivera MD Work Phone: [facility] 08-12-2024 13:07-0400 Body temperature 96.8 [degF] Erin Rivera MD Work Phone: [facility] 08-12-2024 12:20-0400 Body height 175.3 cm Erin Rivera MD Work Phone: [facility] 08-12-2024 12:20-0400 Body mass index (BMI) [Ratio] 22.89 kg/m2 Erin Rivrea MD Work Phone: [facility] 08-12-2024 12:20-0400 Body weight 70.31 kg Erin Rivera MD Work Phone: [facility] 07-05-2024 08:57-0400 Body height 175.3 cm Yusuf Dean DPM Work Phone: [facility] 07-05-2024 08:57-0400 Body mass index (BMI) [Ratio] 22.89 kg/m2 Yusuf Dean DPM Work Phone: [facility] 07-05-2024 08:57-0400 Body temperature 98.6 [degF] Yusuf Dean DPM Work Phone: [facility] 07-05-2024 08:57-0400 Body weight 70.31 kg Yusuf Dean DPM Work Phone: [facility] 06-03-2024 15:49-0400 Body mass index (BMI) [Ratio] 21.5 kg/m2 Jerel RAMOS Work Phone: [facility] 06-03-2024 15:49-0400 Body temperature 97.7 [degF] Jerel Bennett DESK MAKER-C Work Phone: [facility] 06-03-2024 15:49-0400 Body weight 68.03 kg Jerel Bennett [employer]C Work Phone: [facility] 06-03-2024 15:49-0400 Diastolic blood pressure 70 mm[Hg] Jerel Bennett [employer]C Work Phone: [facility] 06-03-2024 15:49-0400 Heart rate 63 /min Jerel Bennett [employer] Work Phone: [facility] 06-03-2024 15:49-0400 Respiratory rate 18 /min Jerel Bennett [employer]C Work Phone: [facility] 06-03-2024 15:49-0400 SaO2% (BldA) [Mass fraction] 97 % Jerel Bennett [employer]C Work Phone: [facility] 06-03-2024 15:49-0400 Systolic blood pressure 136 mm[Hg] Jerel Bennett [employer]C Work Phone: [facility] 04-26-2024 09:32-0500 Body height 175.3 cm Yusuf Dean DPM Work Phone: [facility] 04-26-2024 09:32-0500 Body mass index (BMI) [Ratio] 22.89 kg/m2 Yusuf Dean DPM Work Phone: [facility] 04-26-2024 09:32-0500 Body temperature 97.9 [degF] Yusuf Dean DPM Work Phone: [facility] 04-26-2024 09:32-0500 Body weight 70.31 kg Yusuf Dean DPM Work Phone: [facility] 04-08-2024 13:24-0500 Body height 175.3 cm Ceferino Lopez MD Work Phone: [facility] 04-08-2024 13:24-0500 Body mass index (BMI) [Ratio] 22.06 kg/m2 Ceferino Lopez MD Work Phone: [facility] 04-08-2024 13:24-0500 Body weight 67.77 kg Ceferino Lopez MD Work Phone: [facility] 04-08-2024 13:24-0500 Diastolic blood pressure 68 mm[Hg] Ceferino Lopez MD Work Phone: [facility] 04-08-2024 13:24-0500 Heart rate 75 /min Ceferino Lopez MD Work Phone: [facility] 04-08-2024 13:24-0500 Respiratory rate 18 /min Ceferino Lopez MD Work Phone: [facility] 04-08-2024 13:24-0500 SaO2% (BldA) [Mass fraction] 97 % Ceferino Lopez MD Work Phone: [facility] 04-08-2024 13:24-0500 Systolic blood pressure 121 mm[Hg] Ceferino Lopez MD Work Phone: [facility] 02-19-2024 11:31-0500 Body mass index (BMI) [Ratio] 23 kg/m2 Braydon Tellez MD Work Phone: [facility] 02-19-2024 11:31-0500 Body temperature 97.5 [degF] Braydon Tellez MD Work Phone: [facility] 02-19-2024 11:31-0500 Body weight 70.65 kg Braydon Tellez MD Work Phone: [facility] 02-19-2024 11:31-0500 Diastolic blood pressure 68 mm[Hg] Braydon Tellez MD Work Phone: [facility] 02-19-2024 11:31-0500 Heart rate 61 /min Braydon Tellez MD Work Phone: [facility] 02-19-2024 11:31-0500 Respiratory rate 16 /min Braydon Tellez MD Work Phone: [facility] 02-19-2024 11:31-0500 SaO2% (BldA) [Mass fraction] 99 % Braydon Tellez MD Work Phone: [facility] 02-19-2024 11:31-0500 Systolic blood pressure 139 mm[Hg] Braydon Tellez MD Work Phone: [facility] 02-16-2024 14:22-0500 Body height 175.3 cm Yusuf Dean DPM Work Phone: [facility] 02-16-2024 14:22-0500 Body mass index (BMI) [Ratio] 22.45 kg/m2 Yusuf Dean DPM Work Phone: [facility] 02-16-2024 14:22-0500 Body temperature 98.1 [degF] Yusuf Dean DPM Work Phone: [facility] 02-16-2024 14:22-0500 Body weight 68.95 kg Yusuf Dean DPM Work Phone: [facility] 02-05-2024 14:20-0500 Diastolic blood pressure 62 mm[Hg] Erin Rivera MD Work Phone: [facility] 02-05-2024 14:20-0500 Heart rate 68 /min Erin Rivera MD Work Phone: [facility] 02-05-2024 14:20-0500 Respiratory rate 16 /min Erin Rivera MD Work Phone: [facility] 02-05-2024 14:20-0500 SaO2% (BldA) [Mass fraction] 97 % Erin Rivera MD Work Phone: [facility] 02-05-2024 14:20-0500 Systolic blood pressure 109 mm[Hg] Erin Rivera MD Work Phone: [facility] 02-05-2024 14:06-0500 Body temperature 97.7 [degF] Erin Rivera MD Work Phone: [facility] 02-05-2024 12:53-0500 Body height 175.3 cm Erin Rivera MD Work Phone: [facility] 02-05-2024 12:53-0500 Body mass index (BMI) [Ratio] 22.45 kg/m2 Erin Rivera MD Work Phone: [facility] 02-05-2024 12:53-0500 Body weight 68.95 kg Erin Rivera MD Work Phone: [facility] 02-01-2024 12:52-0500 Body height 175.3 cm [facility] 02-01-2024 12:52-0500 Body mass index (BMI) [Ratio] 22.45 kg/m2 [facility] 02-01-2024 12:52-0500 Body weight 68.95 kg [facility] 02-01-2024 12:52-0500 Respiratory rate 18 /min [facility] 12-13-2023 08:26-0400 Body height 175.3 cm Yusuf Dean DPM Work Phone: [facility] 12-13-2023 08:26-0400 Body mass index (BMI) [Ratio] 23.33 kg/m2 Yusuf Dean DPM Work Phone: [facility] 12-13-2023 08:26-0400 Body temperature 97.2 [degF] Yusuf Dean DPM Work Phone: [facility] 12-13-2023 08:26-0400 Body weight 71.67 kg Yusuf Dean DPM Work Phone: [facility] 11-14-2023 09:30-0400 Body temperature 97.7 [degF] Russell Gale MD Work Phone: [facility] 11-14-2023 09:30-0400 Diastolic blood pressure 69 mm[Hg] Russell Gale MD Work Phone: [facility] 11-14-2023 09:30-0400 Heart rate 67 /min Russell Gale MD Work Phone: [facility] 11-14-2023 09:30-0400 Respiratory rate 15 /min Russell Gale MD Work Phone: [facility] 11-14-2023 09:30-0400 SaO2% (BldA) [Mass fraction] 97 % Russell Gale MD Work Phone: [facility] 11-14-2023 09:30-0400 Systolic blood pressure 125 mm[Hg] Russell Gale MD Work Phone: [facility] 11-14-2023 07:31-0400 Body height 175.3 cm Russell Gale MD Work Phone: [facility] 11-14-2023 07:31-0400 Body mass index (BMI) [Ratio] 22.11 kg/m2 Russell Gale MD Work Phone: [facility] 11-14-2023 07:31-0400 Body weight 67.9 kg Russell Gale MD Work Phone: [facility] 11-13-2023 07:55-0400 Body height 175.3 cm Yusuf PATELM Work Phone: [facility] 11-13-2023 07:55-0400 Body mass index (BMI) [Ratio] 23.33 kg/m2 Yusuf PATELM Work Phone: [facility] 11-13-2023 07:55-0400 Body temperature 98.6 [degF] Yusuf PATELM Work Phone: [facility] 11-13-2023 07:55-0400 Body weight 71.67 kg Yusuf PATELM Work Phone: [facility] 09-28-2023 14:47-0400 Body height 175.3 cm Yusuf Dean DPM Work Phone: [facility] 09-28-2023 14:47-0400 Body mass index (BMI) [Ratio] 23.33 kg/m2 Yusuf Dean DPM Work Phone: [facility] 09-28-2023 14:47-0400 Body temperature 98.6 [degF] Yusuf Dean DPM Work Phone: [facility] 09-28-2023 14:47-0400 Body weight 71.67 kg Yusuf Dean DPM Work Phone: [facility] 09-08-2023 14:18-0400 Body height 175.3 cm Katt Fernandezlson DPM Work Phone: [facility] 09-08-2023 14:18-0400 Body mass index (BMI) [Ratio] 23.33 kg/m2 Katt Nichelson DPM Work Phone: [facility] 09-08-2023 14:18-0400 Body temperature 98.6 [degF] Katt Nichelson DPM Work Phone: [facility] 09-08-2023 14:18-0400 Body weight 71.67 kg Katt Nichelson DPM Work Phone: [facility] 08-16-2023 10:41-0400 Body height 175.3 cm Iris Nava MD Work Phone: [facility] 08-16-2023 10:41-0400 Body mass index (BMI) [Ratio] 23.67 kg/m2 Iris Nava MD Work Phone: [facility] 08-16-2023 10:41-0400 Body temperature 97.81 [degF] Iris Nava MD Work Phone: [facility] 08-16-2023 10:41-0400 Body weight 72.71 kg Iris Nava MD Work Phone: [facility] 08-16-2023 10:41-0400 Diastolic blood pressure 66 mm[Hg] Iris Nava MD Work Phone: [facility] 08-16-2023 10:41-0400 Heart rate 55 /min Iris Nava MD Work Phone: [facility] 08-16-2023 10:41-0400 Respiratory rate 16 /min Iris Nava MD Work Phone: [facility] 08-16-2023 10:41-0400 SaO2% (BldA) [Mass fraction] 98 % Iris Nava MD Work Phone: [facility] 08-16-2023 10:41-0400 Systolic blood pressure 145 mm[Hg] Iris Nava MD Work Phone: [facility] 08-03-2023 11:07-0400 Body mass index (BMI) [Ratio] 23.46 kg/m2 Braydon Tellez MD Work Phone: [facility] 08-03-2023 11:07-0400 Body temperature 97 [degF] Braydon Tellez MD Work Phone: [facility] 08-03-2023 11:07-0400 Body weight 72.05 kg Braydon Tellez MD Work Phone: [facility] 08-03-2023 11:07-0400 Diastolic blood pressure 67 mm[Hg] Braydon Tellez MD Work Phone: [facility] 08-03-2023 11:07-0400 Heart rate 55 /min Braydon Tellez MD Work Phone: [facility] 08-03-2023 11:07-0400 SaO2% (BldA) [Mass fraction] 97 % Braydon Tellez MD Work Phone: [facility] 08-03-2023 11:07-0400 Systolic blood pressure 143 mm[Hg] Braydon Tellez MD Work Phone: [facility] 07-26-2023 11:22-0400 Body height 175.3 cm Yusuf Dean DPM Work Phone: [facility] 07-26-2023 11:22-0400 Body mass index (BMI) [Ratio] 23.63 kg/m2 Yusuf Dean DPM Work Phone: [facility] 07-26-2023 11:22-0400 Body temperature 98.71 [degF] Yusuf Dean DPM Work Phone: [facility] 07-26-2023 11:22-0400 Body weight 72.58 kg Yusuf Dean DPM Work Phone: [facility] 07-24-2023 14:10-0400 Heart rate 51 /min Erin Rivera MD Work Phone: [facility] 07-24-2023 14:10-0400 SaO2% (BldA) [Mass fraction] 97 % Erin Rivera MD Work Phone: [facility] 07-24-2023 14:00-0400 Diastolic blood pressure 55 mm[Hg] Erin Rivera MD Work Phone: [facility] 07-24-2023 14:00-0400 Respiratory rate 18 /min Erin Rivera MD Work Phone: [facility] 07-24-2023 14:00-0400 Systolic blood pressure 100 mm[Hg] Erin Rivera MD Work Phone: [facility] 07-24-2023 13:36-0400 Body temperature 97.2 [degF] Erin Rivera MD Work Phone: [facility] 07-06-2023 11:27-0400 Diastolic blood pressure 73 mm[Hg] Braydon Tellez MD Work Phone: [facility] 07-06-2023 11:27-0400 Systolic blood pressure 130 mm[Hg] Braydon Tellez MD Work Phone: [facility] 07-06-2023 11:26-0400 Body mass index (BMI) [Ratio] 23.7 kg/m2 Braydon Tellez MD Work Phone: [facility] 07-06-2023 11:26-0400 Body weight 72.8 kg Braydon Tellez MD Work Phone: [facility] 06-13-2023 10:32-0400 Diastolic blood pressure 74 mm[Hg] Lopez Hollis MD Work Phone: [facility] 06-13-2023 10:32-0400 Systolic blood pressure 135 mm[Hg] Lopez Hollis MD Work Phone: [facility] 06-13-2023 10:27-0400 Body height 175.3 cm Lopez Hollis MD Work Phone: [facility] 06-13-2023 10:27-0400 Body mass index (BMI) [Ratio] 22.74 kg/m2 Lopez Hollis MD Work Phone: [facility] 06-13-2023 10:27-0400 Body weight 69.85 kg Lopez Hollis MD Work Phone: [facility] 06-13-2023 10:27-0400 Heart rate 55 /min Lopez Hollis MD Work Phone: [facility] 06-13-2023 10:27-0400 SaO2% (BldA) [Mass fraction] 97 % Lopez Hollis MD Work Phone: [facility] 06-12-2023 17:13-0400 Body height 175.3 cm Yusuf Dean DPM Work Phone: [facility] 06-12-2023 17:13-0400 Body mass index (BMI) [Ratio] 22.89 kg/m2 Yusuf Dean DPM Work Phone: [facility] 06-12-2023 17:13-0400 Body temperature 98.1 [degF] Yusuf PATELM Work Phone: [facility] 06-12-2023 17:13-0400 Body weight 70.31 kg Yusuf Dean DPM Work Phone: [facility] 05-31-2023 10:07-0400 Body height 175.3 cm Iris Nava MD Work Phone: [facility] 05-31-2023 10:07-0400 Body mass index (BMI) [Ratio] 23.69 kg/m2 Iris Nava MD Work Phone: [facility] 05-31-2023 10:07-0400 Body temperature 97.7 [degF] Iris Nava MD Work Phone: [facility] 05-31-2023 10:07-0400 Body weight 72.76 kg Iris Nava MD Work Phone: [facility] 05-31-2023 10:07-0400 Diastolic blood pressure 67 mm[Hg] Iris Nava MD Work Phone: [facility] 05-31-2023 10:07-0400 Heart rate 51 /min Iris Nava MD Work Phone: [facility] 05-31-2023 10:07-0400 Respiratory rate 18 /min Iris Nava MD Work Phone: [facility] 05-31-2023 10:07-0400 SaO2% (BldA) [Mass fraction] 98 % Iris Nava MD Work Phone: [facility] 05-31-2023 10:07-0400 Systolic blood pressure 141 mm[Hg] Iris Nava MD Work Phone: [facility] 05-23-2023 14:49-0400 Body height 175.3 cm Yusuf Dean DPM Work Phone: [facility] 05-23-2023 14:49-0400 Body temperature 98.2 [degF] Yusuf Dean DPM Work Phone: [facility] 05-23-2023 14:49-0400 Body weight 70.31 kg Yusuf Dean DPM Work Phone: [facility] 04-06-2023 11:06-0500 Diastolic blood pressure 78 mm[Hg] Braydon Tellez MD Work Phone: [facility] 04-06-2023 11:06-0500 Heart rate 53 /min Braydon Tellez MD Work Phone: [facility] 04-06-2023 11:06-0500 SaO2% (BldA) [Mass fraction] 98 % Braydon Tellez MD Work Phone: [facility] 04-06-2023 11:06-0500 Systolic blood pressure 162 mm[Hg] Braydon Tellez MD Work Phone: [facility] 04-06-2023 11:02-0500 Body weight 70.65 kg Braydon Tellez MD Work Phone: [facility] 03-24-2023 12:52-0500 Body height 177.8 cm [facility] 03-24-2023 12:52-0500 Body mass index (BMI) [Ratio] 22.4 kg/m2 [facility] 03-24-2023 12:52-0500 Body temperature 97.2 [degF] [facility] 03-24-2023 12:52-0500 Body weight 70.76 kg [facility] 03-24-2023 12:52-0500 Diastolic blood pressure 80 mm[Hg] [facility] 03-24-2023 12:52-0500 Heart rate 80 /min [facility] 03-24-2023 12:52-0500 Respiratory rate 18 /min [facility] 03-24-2023 12:52-0500 SaO2% (BldA) [Mass fraction] 96 % [facility] 03-24-2023 12:52-0500 Systolic blood pressure 100 mm[Hg] [facility] 01-06-2023 15:58-0500 Body height 177.8 cm [facility] 01-06-2023 15:58-0500 Body mass index (BMI) [Ratio] 23.3 kg/m2 [facility] 01-06-2023 15:58-0500 Body temperature 97.7 [degF] [facility] 01-06-2023 15:58-0500 Body weight 73.93 kg [facility] 01-06-2023 15:58-0500 Diastolic blood pressure 60 mm[Hg] [facility] 01-06-2023 15:58-0500 Heart rate 59 /min [facility] 01-06-2023 15:58-0500 Respiratory rate 18 /min [facility] 01-06-2023 15:58-0500 SaO2% (BldA) [Mass fraction] 96 % [facility] 01-06-2023 15:58-0500 Systolic blood pressure 118 mm[Hg] [facility] 11-14-2022 16:26-0400 Body mass index (BMI) [Ratio] 22.4 kg/m2 [facility] 11-14-2022 16:26-0400 Body temperature 97.9 [degF] [facility] 11-14-2022 16:26-0400 Body weight 70.76 kg [facility] 11-14-2022 16:26-0400 Diastolic blood pressure 80 mm[Hg] [facility] 11-14-2022 16:26-0400 Heart rate 61 /min [facility] 11-14-2022 16:26-0400 Respiratory rate 18 /min [facility] 11-14-2022 16:26-0400 SaO2% (BldA) [Mass fraction] 96 % [facility] 11-14-2022 16:26-0400 Systolic blood pressure 138 mm[Hg] [facility] 03-24-2022 08:16-0500 Body weight 72.58 kg Jerel Bennett Work Phone: [facility]Fisah[facility]Ythjlwzo [facility] Work Phone: 03-24-2022 08:16-0500 Diastolic blood pressure 84 mm[Hg] Jerel Bennett Work Phone: [facility]Exmnwka[facility]Ritdxyft [facility] Work Phone: 03-24-2022 08:16-0500 Heart rate 64 /min Jerel Bennett Work Phone: DX[facility]Jfhpugh-Iqqsaago d Work Phone: 03-24-2022 08:16-0500 Systolic blood pressure 138 mm[Hg] Jerel Bennett Work Phone: XZ-Rvyelzr-Oeolxmty d Work Phone: 01-21-2022 09:59-0500 Body height 175.3 cm Yusuf Dean DPM Work Phone: [facility] 01-21-2022 09:59-0500 Body temperature 98.6 [degF] Yusuf Dean DPM Work Phone: [facility] 01-21-2022 09:59-0500 Body weight 77.11 kg Yusuf Dean DPM Work Phone: [facility] 01-18-2022 10:42-0500 Body temperature 96.3 [degF] No PCP None PX-Djxplyt-Jqlm a 411 DO Work Phone: 01-18-2022 10:42-0500 Body weight 68.04 kg No PCP None QX-Qlaakov-Hbnrr 411 DO Work Phone: 01-18-2022 10:42-0500 Diastolic blood pressure 68 mm[Hg] No PCP None FF-Lmfxazl-Lonhz 411 DO Work Phone: 01-18-2022 10:42-0500 Heart rate 64 /min No PCP None DB-Dmqdcha-Shkul 411 DO Work Phone: 01-18-2022 10:42-0500 Systolic blood pressure 124 mm[Hg] No PCP None CT-Biyshrr-Dlygc 411 DO Work Phone: 01-10-2022 19:40-0500 Body height 177.8 cm [facility] Work Phone: 01-10-2022 19:40-0500 Body mass index (BMI) [Ratio] 21.8 kg/m2 [facility] Work Phone: 01-10-2022 19:40-0500 Body temperature 97.5 [degF] [facility] Work Phone: 01-10-2022 19:40-0500 Body weight 68.94 kg [facility] Work Phone: 01-10-2022 19:40-0500 Diastolic blood pressure 70 mm[Hg] [facility] Work Phone: 01-10-2022 19:40-0500 Heart rate 59 /min [facility] Work Phone: 01-10-2022 19:40-0500 Respiratory rate 18 /min [facility] Work Phone: 01-10-2022 19:40-0500 SaO2% (BldA) [Mass fraction] 96 % [facility] Work Phone: 01-10-2022 19:40-0500 Systolic blood pressure 128 mm[Hg] [facility] Work Phone: 12-29-2021 08:28-0500 Body height 175.3 cm Yusuf Dean DPM Work Phone: [facility] 12-29-2021 08:28-0500 Body temperature 98.91 [degF] Yusuf Dean DPM Work Phone: [facility] 12-29-2021 08:28-0500 Body weight 77.11 kg Yusuf Dean DPM Work Phone: [facility] 12-20-2021 11:18-0400 Body height 175.3 cm Yusuf Dean DPM Work Phone: [facility] 12-20-2021 11:18-0400 Body temperature 98.4 [degF] Yusuf Dean DPM Work Phone: [facility] 12-20-2021 11:18-0400 Body weight 77.11 kg Yusuf Dean DPM Work Phone: [facility] 11-16-2021 15:14-0400 Body height 177.8 cm [facility] Work Phone: 11-16-2021 15:14-0400 Body mass index (BMI) [Ratio] 21.9 kg/m2 [facility] Work Phone: 11-16-2021 15:14-0400 Body temperature 97.5 [degF] [facility] Work Phone: 11-16-2021 15:14-0400 Body weight 69.39 kg [facility] Work Phone: 11-16-2021 15:14-0400 Diastolic blood pressure 60 mm[Hg] [facility] Work Phone: 11-16-2021 15:14-0400 Heart rate 56 /min [facility] Work Phone: 11-16-2021 15:14-0400 Respiratory rate 18 /min [facility] Work Phone: 11-16-2021 15:14-0400 SaO2% (BldA) [Mass fraction] 97 % [facility] Work Phone: 11-16-2021 15:14-0400 Systolic blood pressure 128 mm[Hg] [facility] Work Phone: Encounters Encounter Date Encounter Type Care Provider Facility Start: 11-26-2024 End: 11-26-2024 ambulatory Jerel Bennett NP Facility:[facility] Start: 10-31-2024 End: 10-31-2024 Office outpatient visit 25 minutes Yusuf Busby MD Work Phone: [facility] Comment on above: Elevated PSA; Prostate CA (Multi) Start: 10-31-2024 End: 10-31-2024 ambulatory YUSUF BUSBY [facility] Start: 10-23-2024 End: 10-23-2024 Subsequent hospital visit by physician Monica Mri 1 [facility] Comment on above: Elevated PSA Start: 10-23-2024 End: 10-23-2024 ambulatory YUSUF Young KEHINDE [facility] Start: 09-16-2024 End: 09-16-2024 Emergency department patient visit Palacios MD [facility] Comment on above: Abdominal pain, unsp ecified abdominal location (Primary Dx); Acute left-sided low back pain, unspecified whether sciatica present Start: 09-13-2024 End: 09-13-2024 Patient encounter procedure Yusuf Dean DPM Work Phone: [facility] Comment on above: Onychomycosis (Prima ry Dx); Xerosis of skin; Capsulitis of metatarsophalangeal (MTP) joint of right foot; Haskins neuroma, right; Pain in right foot; Pain in toes of both feet; Equinus contracture of ankle; Type 2 diabetes mellitus with peripheral neuropathy (HCC) Start: 09-06-2024 End: 09-06-2024 Patient encounter procedure Braydon Tellez MD Work Phone: Hematology/Medical Oncology Start: 09-06-2024 End: 09-06-2024 ambulatory Braydon Tellez MD Work Phone: Hematology/Medical Oncology Comment on above: H. 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); Prostate cancer managed with active surveillance (HCC) Start: 09-05-2024 End: 09-05-2024 Office outpatient visit 25 minutes Yusuf Busby MD Work Phone: [facility] Comment on above: Prostate CA (Multi) (Primary Dx); Elevated PSA Start: 09-05-2024 End: 09-05-2024 ambulatory YUSUF BUSBY [facility] Start: 09-02-2024 End: 09-02-2024 ambulatory JEREL BENNETT Facility:[facility] Start: 08-21-2024 End: 08-21-2024 ambulatory Jerel Bennett [employer] Work Phone: -Laboratory Specimen Start: 08-21-2024 End: 08-21-2024 Patient encounter procedure Jerel Bennett [employer] -Laboratory Specimen Work Phone: Start: 08-21-2024 End: 08-21-2024 ambulatory Jerel Bennett NP Facility:[facility] Start: 08-12-2024 ambulatory ADRYAN SINANHcetor Facility:[facility] Start: 08-12-2024 End: 08-12-2024 Subsequent hospital visit by physician Erin Rivera MD Work Phone: Gastroenterology Comment on above: 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] Start: 08-05-2024 End: 08-05-2024 ambulatory Vladimir Saravia RN Gastroenterology Start: 07-05-2024 End: 07-05-2024 Patient encounter procedure Yusuf Dean DPM Work Phone: [facility] Comment on above: Onychomycosis (Prima ry Dx); Xerosis of skin; Capsulitis of metatarsophalangeal (MTP) joint of right foot; Haskins neuroma, right; Pain in right foot; Pain in toes of both feet; Equinus contracture of ankle; Type 2 diabetes mellitus with peripheral neuropathy (HCC) Start: 06-06-2024 End: 06-06-2024 Office outpatient visit 25 minutes Yusuf Busby MD Work Phone: [facility] Comment on above: Prostate CA (Multi) Start: 06-06-2024 End: 06-06-2024 ambulatory YUSUF Young KEHINDE [facility] Start: 04-26-2024 End: 04-26-2024 Patient encounter procedure Yusuf Dean DPM Work Phone: [facility] Comment on above: Onychomycosis (Prima ry Dx); Xerosis of skin; Capsulitis of metatarsophalangeal (MTP) joint of right foot; Haskins neuroma, right; Pain in right foot; Pain in toes of both feet; Equinus contracture of ankle; Type 2 diabetes mellitus with peripheral neuropathy (HCC) Start: 04-08-2024 End: 04-08-2024 Office outpatient new 45 minutes Ceferino Lopez MD Work Phone: Division of Urological Surgery at [facility] Comment on above: Prostate cancer (Ruth roya Dx) Start: 04-08-2024 ambulatory JEREL Smith ity:PRANAY Start: 03-28-2024 End: 03-28-2024 ambulatory Jerel Bennett NP Facility:[facility] Start: 02-26-2024 End: 02-26-2024 Orders Only Erin Rivera MD Work Phone: General Surgery Comment on above: MALT lymphoma (Prima ry Dx); History of Helicobacter pylori infection Start: 02-23-2024 End: 02-23-2024 Patient encounter procedure Yusuf Dean DPM Work Phone: [employer] Comment on above: Onychomycosis (Prima ry Dx); Xerosis of skin; Capsulitis of metatarsophalangeal (MTP) joint of right foot; Haskins neuroma, right; Pain in right foot; Pain in toes of both feet; Equinus contracture of ankle; Type 2 diabetes mellitus with peripheral neuropathy (HCC); Subungual hematoma of great toe of left foot, initial encounter Start: 02-19-2024 End: 02-19-2024 ambulatory Braydon Tellez MD Work Phone: Hematology/Medical Oncology Comment on above: H. 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, unspecified B-cell lymphoma type (HCC); Prostate cancer managed with active surveillance (HCC) Start: 02-19-2024 End: 02-19-2024 Patient encounter procedure Braydon Tellez MD Work Phone: Hematology/Medical Oncology Start: 02-16-2024 End: 02-16-2024 ambulatory BRAYDON TELLEZ Facility:[facility] Start: 02-05-2024 End: 02-05-2024 ambulatory BEV GAYTAN Facility:[facility] Start: 02-05-2024 End: 02-05-2024 Subsequent hospital visit by physician Erin Rivera MD Work Phone: Gastroenterology Comment on above: 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] Start: 02-01-2024 End: 02-01-2024 Admission to establishment [facility] Start: 02-01-2024 End: 02-01-2024 ambulatory Erin Rivera Facility:[facility] Start: 02-01-2024 End: 02-01-2024 Anesthesia consultation [facility] Pre Anesthesia Comment on above: Pre-op evaluation (P rimary Dx); Type 2 diabetes mellitus with peripheral neuropathy (HCC); ALLISON (obstructive sleep apnea); Acquired hypothyroidism; MALT (mucosa associated lymphoid tissue); Prostate cancer (HCC) Start: 02-01-2024 Encounter for other preprocedural examination BRAYDON TELLEZ [facility] Start: 02-01-2024 End: 02-01-2024 Preprocedural examination done [facility] Work Phone: Start: 12-15-2023 End: 12-15-2023 Patient encounter procedure Yusuf Dean DPM Work Phone: [facility] Comment on above: Onychomycosis (Prima ry Dx); Xerosis of skin; Capsulitis of metatarsophalangeal (MTP) joint of right foot; Haskins neuroma, right; Pain in right foot; Pain in toes of both feet; Equinus contracture of ankle; Type 2 diabetes mellitus with peripheral neuropathy (HCC) Start: 12-07-2023 End: 12-07-2023 Office outpatient visit 40 minutes Yusuf Busby MD Work Phone: [facility] Comment on above: Prostate CA (Multi) Start: 12-07-2023 End: 12-07-2023 ambulatory YUSUF BUSYB [facility] Start: 11-14-2023 End: 11-14-2023 ambulatory RUSSELL GALE [facility] Start: 11-14-2023 End: 11-14-2023 Subsequent hospital visit by physician Russell Gale MD Work Phone: [facility] [place] Comment on above: Elevated PSA Start: 11-13-2023 End: 11-13-2023 Patient encounter procedure Yusuf Dean DPM Work Phone: [facility] Comment on above: Capsulitis of metata rsophalangeal (MTP) joint of right foot (Primary Dx); Haskins neuroma, right; Xerosis of skin; Pain in right foot; Type 2 diabetes mellitus with peripheral neuropathy (HCC); Onychomycosis; Arthritis of right foot; Pain in toes of both feet Start: 10-18-2023 End: 10-18-2023 Patient encounter procedure Yusuf Busby MD Work Phone: [facility] Comment on above: Elevated PSA Start: 10-03-2023 End: 10-03-2023 ambulatory Maida Davis RT(R) Radiology Comment on above: Radiology XR Start: 10-03-2023 End: 10-03-2023 Patient encounter procedure Maida Davis RT(R) Radiology Comment on above: Onychomycosis (Prima ry Dx); Xerosis of skin; Arthritis of right foot; Pain in right foot; Pain in toes of both feet; Type 2 diabetes mellitus with peripheral neuropathy (HCC) Start: 10-03-2023 End: 10-03-2023 Subsequent hospital visit by physician Eileen [facility] Comment on above: Pain [R52] Start: 09-12-2023 Telephone encounter Erin boss MD Work Phone: General Surgery Comment on above: Patient Question Start: 09-08-2023 End: 09-08-2023 Patient encounter procedure Katt Jimenez DPM Work Phone: [facility] Comment on above: Osteoarthritis of ri ght ankle and foot (Primary Dx); Type 2 diabetes mellitus with peripheral neuropathy (HCC) Start: 09-07-2023 End: 09-07-2023 Office outpatient visit 25 minutes Yusuf Busby MD Work Phone: [facility] Comment on above: Elevated PSA (Primar y Dx) Start: 09-05-2023 End: 09-05-2023 ambulatory JEREL BENNETT [facility] Start: 08-16-2023 End: 08-16-2023 Office outpatient visit 25 minutes Iris Nava MD Work Phone: Division of Hematology & Oncology at 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 pylori infection; Type 2 diabetes mellitus with peripheral neuropathy (HCC); MGUS (monoclonal gammopathy of unknown significance); Platelets decreased (HCC) Start: 08-03-2023 End: 08-03-2023 Patient encounter procedure Braydon Tellez MD Work Phone: Hematology/Medical Oncology Start: 08-01-2023 End: 08-01-2023 Patient encounter procedure Yusuf Dean DPM Work Phone: [facility] Comment on above: Onychomycosis (Prima ry Dx); Xerosis of skin; Capsulitis of metatarsophalangeal (MTP) joint of right foot; Haskins neuroma, right; Pain in right foot; Pain in toes of both feet; Type 2 diabetes mellitus with peripheral neuropathy (HCC) Start: 07-24-2023 End: 07-24-2023 Subsequent hospital visit by physician Erin Rivera MD Work Phone: Gastroenterology Comment on above: 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] Start: 07-19-2023 Telephone encounter Pema Young Gastroenterology Comment on above: Patient Question (Pr ep ) Start: 07-19-2023 End: 07-19-2023 Office outpatient visit 15 minutes Yusuf Busby MD Work Phone: [facility] Comment on above: Elevated PSA (Primar y Dx) Start: 07-18-2023 End: 07-18-2023 ambulatory JEREL Bee [facility] Start: 07-06-2023 End: 07-06-2023 ambulatory Braydon Tellez MD Work Phone: Hematology/Medical Oncology Comment on above: 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 pylori infection; MGUS (monoclonal gammopathy of unknown significance) Start: 07-06-2023 End: 07-06-2023 Patient encounter procedure Braydon Tellez MD Work Phone: Hematology/Medical Oncology Start: 06-26-2023 End: 06-26-2023 Nursing evaluation of patient and report Nurse Gi [facility] 2 Work Phone: Gastroenterology Comment on above: H. pylori infection (Primary Dx); 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, unspecified B-cell lymphoma type (HCC) Start: 06-14-2023 End: 06-14-2023 Patient encounter procedure Yusuf Dean DPM Work Phone: [facility] Comment on above: Xerosis of skin (Ruth roya Dx); Type 2 diabetes mellitus with peripheral neuropathy (HCC) Start: 06-13-2023 End: 06-13-2023 Patient encounter procedure Lopez Hollis MD Work Phone: Cardiology Comment on above: Atrial fibrillation, unspecified type (HCC) Start: 05-31-2023 End: 05-31-2023 Office outpatient new 60 minutes Iris Nava MD Work Phone: Division of Hematology & Oncology at [facility] Comment on above: 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, unspecified B-cell lymphoma type (HCC) [C85.19] Start: 03-27-2023 Colonoscopy normal [facility] Comment on above: 2022 2 polyps but fo und lymphoma normal EGD Start: 03-24-2023 End: 03-24-2023 ambulatory [facility] Work Phone: Start: 03-24-2023 End: 03-24-2023 Patient encounter procedure [facility] Spec[facility] Work Phone: Start: 03-15-2023 End: 03-15-2023 ambulatory KORIN NICOLAS Facility:[facility] Start: 03-15-2023 End: 03-15-2023 ambulatory KORIN NICOLAS Facility:[facility] Start: 03-07-2023 End: 03-07-2023 ambulatory [facility] Facility:[facility] Start: 03-07-2023 End: 03-07-2023 ambulatory [facility] Facility:[facility] Start: 01-06-2023 End: 01-06-2023 ambulatory [facility] Work Phone: Start: 01-06-2023 End: 01-06-2023 Patient encounter procedure [facility] Work Phone: Start: 01-05-2023 End: 01-05-2023 Office outpatient visit 15 minutes Yusuf Busby MD Work Phone: [facility] Comment on above: Elevated PSA (Primar y Dx) Start: 01-02-2023 Orders Only Erin Rivera MD Work Phone: [facility] Comment on above: Gastroesophageal ref lux disease, unspecified whether esophagitis present (Primary Dx) Start: 12-08-2022 End: 12-08-2022 ambulatory Zeina Krysta LWEIS-Tamiko Work Phone: Gastroenterology Comment on above: Colon cancer screeni ng (Primary Dx); Globus sensation Start: 12-08-2022 End: 12-08-2022 Telemedicine consultation with patient Zeina Krysta LEWIS-C Work Phone: [facility] Start: 03-31-2022 ambulatory YUSUF BUSBY Facility:[id number] Start: 03-24-2022 Office outpatient vi sit 15 minutes Jerel Bennett Work Phone: [facility] Work Phone: Start: 03-24-2022 ambulatory Ms. Jerel Bennett Facility:[id number] Start: 02-17-2022 ambulatory YUSUF BUSBY Facility:[id number] Start: 02-05-2022 ambulatory YUSUF BUSBY Facility:[facility] Start: 01-21-2022 End: 01-21-2022 Patient encounter procedure Yusuf Dean DPM Work Phone: [facility] Comment on above: Haskins neuroma righ t (Primary Dx); Capsulitis of metatarsophalangeal (MTP) joint of right foot; Pain in right foot; Type 2 diabetes mellitus with peripheral neuropathy (HCC) Start: 01-19-2022 Chart Update No PCP None [facility] 411 DO Work Phone: Start: 01-18-2022 ambulatory YUSUF BUSBY Facility:[id number] Start: 01-14-2022 Telephone encounter Ramakrishna graham DO Work Phone: Internal Medicine [facility] Comment on above: Patient Question Start: 01-11-2022 End: 01-11-2022 ambulatory [facility] Work Phone: Start: 01-11-2022 End: 01-11-2022 Patient encounter procedure [facility] Spec[facility] Start: 01-04-2022 End: 01-04-2022 Patient encounter procedure Yusuf Dean DPM Work Phone: [employer] Comment on above: Onychomycosis (Prima ry Dx); Xerosis of skin; Haskins neuroma, right; Capsulitis of metatarsophalangeal (MTP) joint of right foot; Pain in right foot; Type 2 diabetes mellitus with peripheral neuropathy (HCC) Start: 12-20-2021 End: 12-20-2021 Patient encounter procedure Yusuf Dean DPM Work Phone: [employer] Comment on above: Haskins neuroma, righ t (Primary Dx); Capsulitis of metatarsophalangeal (MTP) joint of right foot; Pain in right foot; Type 2 diabetes mellitus with peripheral neuropathy (HCC) Start: 11-16-2021 End: 11-16-2021 ambulatory [facility] Work Phone: Start: 11-16-2021 End: 11-16-2021 Patient encounter procedure [facility] Specimen Start: 10-30-2020 Patient encounter status [facility] Procedures Date Procedure Procedure Detail Performing Clinician Start: 10-23-2024 Mri pelvis w/o & w/contrast material Yusuf Busby MD Work Phone: Start: 09-16-2024 Ecg routine ecg w/least 12 lds w/i&r Palacios MD Work Phone: Start: 09-16-2024 Urnls dip stick/tablet rgnt auto w/o microscopy Kaitlyn Nobles DESK MAKER-C Work Phone: Start: 09-16-2024 Ct abdomen & pelvis w/contrast material Kaitlyn Nobles DESK MAKER-C Work Phone: Start: 09-16-2024 Comprehensive metabolic panel Kaitlyn Solomon [employer]K [employer]KER-C Work Phone: Start: 08-21-2024 Assay of prostate specific antigen total Jerel Bennett [employer] MAKER-C Work Phone: Comment on above: This test was performed using the [employer] tPSA method. Measured values of a patient sample can vary depending on the testing procedure used. PSA values determined on patient samples by different testing procedures cannot be used interchangeably. If there is a change in PSA assays while monitoring therapy, sequential testing should be performed to confirm baseline values. Start: 08-12-2024 Esophagogastroduodenoscopy transoral diagnostic Braydon Tellez MD Work Phone: Start: 08-12-2024 End: 08-12-2024 Gluc bld gluc mntr dev cleared fda spec home use Adryan Rogel APRN.[employer] Work Phone: Start: 02-05-2024 Esophagogastroduodenoscopy transoral diagnostic Erin Rivera MD Work Phone: Start: 02-05-2024 Gluc bld gluc mntr dev cleared fda spec home use Bev Gaytan MD Work Phone: Start: 11-14-2023 Glucose quantitative blood xcpt reagent strip Russell Gale MD Work Phone: Start: 11-14-2023 PULSE OXIMETRY, CONTINUOUS Allan locke MD Work Phone: Start: 11-14-2023 Glucose quantitative blood xcpt reagent strip Russell Gale MD Work Phone: Start: 10-03-2023 Radex foot complete minimum 3 views Yusuf Dean DPM Work Phone: Start: 08-16-2023 CBC AND ELECTRONIC DIFF Nitza E Bradac h C[employer]IP [employer] CALLER Work Phone: Start: 08-16-2023 Complete blood count with white cell differential, automated Nitza Mei Bradach C[employer] STRIP RO[employer]ER[employer]ARD CALLER Work Phone: Start: 08-16-2023 Comprehensive metabolic panel Nitza E Bradach COLD STRIP RO[employer]ER-YARD CALLER Work Phone: Start: 07-24-2023 Esophagogastroduodenoscopy transoral diagnostic Zeina Chaparro PA-C Work Phone: Start: 07-24-2023 Gluc bld gluc mntr dev cleared fda spec home use Aníbal Martinez MD Work Phone: Start: 05-31-2023 Beta-2 microglobulin Iris Nava MD Work Phone: Start: 05-31-2023 CBC AND ELECTRONIC DIFF Iris samaniego MD Work Phone: Start: 05-31-2023 Complete blood count with white cell differential, automated Iris Nava MD Work Phone: Start: 05-31-2023 Comprehensive metabolic panel Iris Nava MD Work Phone: Start: 02-17-2023 Colonoscopy [facility] Work Phone: Start: 11-16-2022 Follow-up visit Start: 03-31-2022 Follow-up visit Start: 02-17-2022 Follow-up visit Start: 11-28-2016 Colonoscopy Yusuf Dean DPAmina Work Phone: Plan of Treatment Date Care Activity Detail Author Start: 02-17-2033 Screening for malignant neoplasm of colon [facility] Start: 11-28-2026 Screening for malignant neoplasm of colon [facility] Start: 2025 RSV High Risk: (Elderly (60+) or Population) (1 - 1-dose 75+ series) RSV High Risk: (Elderly (60+) or Population) (1 - 1-dose 75+ series) [facility] Start: 09-16-2025 GFR test (Diabetes, CKD 3-4, OR last GFR 15-59) GFR test (Diabetes, CKD 3-4, OR last GFR 15-59) [facility] [employer] Start: 04-26-2025 Diabetic foot examination Diabetic Foot Exam [facility] [facility] Start: 03-13-2025 Hepatitis B screening Urine Albumin:Creatinine Ratio [facility] Start: 03-13-2025 Urine screening for protein [facility] Start: 03-13-2025 End: 03-13-2025 ambulatory 03/13/2025 9:20 AM EST Visit (SP) Office Hematology/Medical Oncology [address] [place], [place] [id number] [place] [address] [place] [address] ISAAC jeffers/Rosalinda Hematology/Medical Oncology Comment on above: ISAAC jeffers/Rosalinda Start: 03-12-2025 Depression Screen Depression Screen [facility] Start: 03-12-2025 Hemoglobin A1c measurement A1C test (Diabetic or Prediabetic) [facility] Start: 03-09-2025 End: 06-08-2025 CBC W Auto Differential panel - Blood COMPLETE BLOOD COUNT AND DIFFERENTIAL Lab Routine MGUS (monoclonal gammopathy of unknown significance) 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, unspecified B-cell lymphoma type (HCC) Expected: 03/09/2025 (Approximate), Expires: 06/08/2025 [facility] Work Phone: Comment on above: Expected: 03/09/2025 (Approximate), Expi res: 06/08/2025 Start: 03-09-2025 End: 06-08-2025 Comprehensive metabolic 2000 panel - Serum or Plasma COMPREHENSIVE METABOLIC PANEL Lab Routine MGUS (monoclonal gammopathy of unknown significance) 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, unspecified B-cell lymphoma type (HCC) Expected: 03/09/2025 (Approximate), Expires: 06/08/2025 [facility] Comment on above: Expected: 03/09/2025 (Approximate), Expi res: 06/08/2025 Start: 03-09-2025 End: 06-08-2025 IMMUNOGLOBULINS,IGG,IGA, IGM IMMUNOGLOBULINS,IGG,IGA ,IGM Lab Routine MGUS (monoclonal gammopathy of unknown significance) 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, unspecified B-cell lymphoma type (HCC) Expected: 03/09/2025 (Approximate), Expires: 06/08/2025 [facility] Comment on above: Expected: 03/09/2025 (Approximate), Expi res: 06/08/2025 Start: 03-09-2025 End: 06-08-2025 KAPPA/RAJPUT,FREE,SER KAPPA/RAJPUT,FREE,SER Lab Routine MGUS (monoclonal gammopathy of unknown significance) 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, unspecified B-cell lymphoma type (HCC) Expected: 03/09/2025 (Approximate), Expires: 06/08/2025 [facility] Comment on above: Expected: 03/09/2025 (Approximate), Expi res: 06/08/2025 Start: 03-09-2025 End: 06-08-2025 MONOCLONAL PROT UR W/INTERP MONOCLONAL PROT UR W/INTERP Lab Routine MGUS (monoclonal gammopathy of unknown significance) 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, unspecified B-cell lymphoma type (HCC) Expected: 03/09/2025 (Approximate), Expires: 06/08/2025 [facility] Comment on above: Expected: 03/09/2025 (Approximate), Expi res: 06/08/2025 Start: 03-09-2025 End: 06-08-2025 MONOCLONAL PROTEIN, SERUM (BLOOD) MONOCLONAL PROTEIN, SERUM (BLOOD) Lab Routine MGUS (monoclonal gammopathy of unknown significance) 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, unspecified B-cell lymphoma type (HCC) Expected: 03/09/2025 (Approximate), Expires: 06/08/2025 [facility] Comment on above: Expected: 03/09/2025 (Approximate), Expi res: 06/08/2025 Start: 03-09-2025 End: 06-08-2025 PROTEIN ELECT RND UR W/INTERP PROTEIN ELECT RND UR W/INTERP Lab Routine MGUS (monoclonal gammopathy of unknown significance) 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, unspecified B-cell lymphoma type (HCC) Expected: 03/09/2025 (Approximate), Expires: 06/08/2025 [facility] Comment on above: Expected: 03/09/2025 (Approximate), Expi res: 06/08/2025 Start: 03-09-2025 End: 06-08-2025 PROTEIN ELECTROPHORESIS SERUM W/INTERP PROTEIN ELECTROPHORESIS SERUM W/INTERP Lab Routine MGUS (monoclonal gammopathy of unknown significance) 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, unspecified B-cell lymphoma type (HCC) Expected: 03/09/2025 (Approximate), Expires: 06/08/2025 [facility] Comment on above: Expected: 03/09/2025 (Approximate), Expi res: 06/08/2025 Start: 03-06-2025 End: 03-06-2025 Patient encounter procedure Radiology Comment on above: B-cell lymphoma of extranodal site exclu ding spleen and other solid organs, unsp... Start: 03-06-2025 End: 03-06-2025 Telemedicine consultation with patient 03/06/2025 9:10 AM EST Telemedicine [facility] [address] [place] [address] Yusuf Busby MD [facility]- 3rd floor of the [facility] [address] [place] [address] [facility] Start: 03-06-2025 End: 03-06-2025 ambulatory 03/06/2025 8:45 AM EST Results Only [place] [facility] Laboratory [address] [place] [address] labs [place] [facility] Laboratory Comment on above: labs Start: 02-10-2025 End: 02-10-2025 Patient encounter procedure 02/10/2025 1:00 PM EST Appointment Gastroenterology [address] [address] Erin Rivera MD [address] [place], [place] [id number] 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 Gastroenterology Comment on above: B-cell lymphoma of extranodal site exclu ding spleen and other solid organs, unsp... Start: 01-30-2025 End: 10-31-2025 Prostate specific Ag [Mass/volume] in Serum or Plasma Prostate Specific Antigen Lab Routine Prostate CA (Multi) Expected: 01/30/2025 (Approximate), Expires: 10/31/2025 [facility] Service Area Work Phone: Comment on above: Expected: 01/30/2025 (Approximate), Expi res: 10/31/2025 Start: 11-22-2024 End: 11-22-2024 Patient encounter procedure 11/22/2024 9:00 AM EDT Office Visit [facility] [address] [facility] [address] [place] [address] Yusuf Dean, ROMA [address] [facility] [address] [place] [address] rfc [facility] Comment on above: rfc Start: 10-31-2024 End: 10-31-2024 Telemedicine consultation with patient 10/31/2024 9:10 AM EDT Telemedicine [facility] [address] [place] [address] Yusuf Busby MD [facility]- 3rd floor of the [facility] [address] [place] [address] [facility] Start: 10-21-2024 Influenza vaccination [facility] Start: 09-20-2024 Influenza vaccination Flu vaccine (#1) [facility] Start: 09-13-2024 End: 09-13-2024 Patient encounter procedure [facility] Comment on above: dispense shoes Start: 09-09-2024 Hemoglobin A1c measurement HbA1C [facility] Start: 09-06-2024 End: 09-06-2024 ambulatory 09/06/2024 9:20 AM EDT Visit (SP) Office Hematology/Medical Oncology [address] [place], [place] [id number] [place] [address] [place], [place] [id number] OV in 6 months Hematology/Medical Oncology Comment on above: OV in 6 months Start: 09-05-2024 End: 09-05-2025 MR Prostate MR prostate with bessy boundaries if pirads 3 or above Imaging Routine Elevated PSA Expected: 09/05/2024 (Approximate), Expires: 09/05/2025 [facility] Service Area Work Phone: Comment on above: Expected: 09/05/2024 (Approximate), Expi res: 09/05/2025 Start: 09-05-2024 End: 09-05-2024 Telemedicine consultation with patient 09/05/2024 9:00 AM EDT Telemedicine [facility] [address] [place] [address] Yusuf Busby MD [facility]- 3rd floor of the [facility] [address] [place] [address] [facility] Start: 09-02-2024 End: 09-02-2024 ambulatory 09/02/2024 10:15 AM EDT Results Only [facility] [address] [place] [address] labs prior [facility] Comment on above: labs prior Start: 08-26-2024 End: 08-26-2024 Patient encounter procedure Gastroenterology Comment on above: MALT lymphoma [C88.40] Start: 08-25-2024 End: 02-25-2025 EGD DIAGNOSTIC EGD DIAGNOSTIC Endoscopy Routine MALT lymphoma History of Helicobacter pylori infection Expected: 08/25/2024, Expires: 02/25/2025 [facility] Work Phone: Comment on above: Expected: 08/25/2024, Expires: Start: 08-19-2024 End: 11-18-2024 CBC W Auto Differential panel - Blood COMPLETE BLOOD COUNT AND DIFFERENTIAL Lab Routine MGUS (monoclonal gammopathy of unknown significance) Expected: 08/19/2024 (Approximate), Expires: 11/18/2024 [facility] Work Phone: Comment on above: Expected: 08/19/2024 (Approximate), Expi res: 11/18/2024 Start: 08-19-2024 End: 11-18-2024 Comprehensive metabolic 2000 panel - Serum or Plasma COMPREHENSIVE METABOLIC PANEL Lab Routine MGUS (monoclonal gammopathy of unknown significance) Expected: 08/19/2024 (Approximate), Expires: 11/18/2024 [facility] Comment on above: Expected: 08/19/2024 (Approximate), Expi res: 11/18/2024 Start: 08-19-2024 End: 11-18-2024 IMMUNOGLOBULINS,IGG,IGA, IGM IMMUNOGLOBULINS,IGG,IGA ,IGM Lab Routine MGUS (monoclonal gammopathy of unknown significance) Expected: 08/19/2024 (Approximate), Expires: 11/18/2024 [facility] Comment on above: Expected: 08/19/2024 (Approximate), Expi res: 11/18/2024 Start: 08-19-2024 End: 11-18-2024 KAPPA/RAJPUT,FREE,SER KAPPA/RAJPUT,FREE,SER Lab Routine MGUS (monoclonal gammopathy of unknown significance) Expected: 08/19/2024 (Approximate), Expires: 11/18/2024 [facility] Comment on above: Expected: 08/19/2024 (Approximate), Expi res: 11/18/2024 Start: 08-19-2024 End: 11-18-2024 MONOCLONAL PROT UR W/INTERP MONOCLONAL PROT UR W/INTERP Lab Routine MGUS (monoclonal gammopathy of unknown significance) Expected: 08/19/2024 (Approximate), Expires: 11/18/2024 [facility] Comment on above: Expected: 08/19/2024 (Approximate), Expi res: 11/18/2024 Start: 08-19-2024 End: 11-18-2024 MONOCLONAL PROTEIN, SERUM (BLOOD) MONOCLONAL PROTEIN, SERUM (BLOOD) Lab Routine MGUS (monoclonal gammopathy of unknown significance) Expected: 08/19/2024 (Approximate), Expires: 11/18/2024 [facility] Comment on above: Expected: 08/19/2024 (Approximate), Expi res: 11/18/2024 Start: 08-19-2024 End: 11-18-2024 PROTEIN ELECT RND UR W/INTERP PROTEIN ELECT RND UR W/INTERP Lab Routine MGUS (monoclonal gammopathy of unknown significance) Expected: 08/19/2024 (Approximate), Expires: 11/18/2024 [facility] Comment on above: Expected: 08/19/2024 (Approximate), Expi res: 11/18/2024 Start: 08-19-2024 End: 11-18-2024 PROTEIN ELECTROPHORESIS SERUM W/INTERP PROTEIN ELECTROPHORESIS SERUM W/INTERP Lab Routine MGUS (monoclonal gammopathy of unknown significance) Expected: 08/19/2024 (Approximate), Expires: 11/18/2024 [facility] Comment on above: Expected: 08/19/2024 (Approximate), Expi res: 11/18/2024 Start: 08-19-2024 End: 08-19-2024 ambulatory 08/19/2024 11:30 AM EDT Visit (SP) Office Hematology/Medical Oncology [address] [place] [address] [place] [address] [place] [address] OV in 6 months Hematology/Medical Oncology Comment on above: OV in 6 months Start: 08-12-2024 End: 08-12-2024 Patient encounter procedure Gastroenterology Comment on above: EGD 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 [address]th [place] [phone] Iris Nava MD [address] [place] [address] Division of Hematology & Oncology at [facility] Start: 07-05-2024 End: 07-05-2024 Patient encounter procedure 07/05/2024 9:00 AM EDT Office Visit CP [facility] [address] [facility] [place] [address] Yusuf Dean DPM [address] [facility] [place] [address] [facility] Start: 06-06-2024 End: 06-06-2025 Prostate specific Ag [Mass/volume] in Serum or Plasma Prostate Specific Antigen Lab Routine Prostate CA (Multi) Expected: 06/06/2024 (Approximate), Expires: 06/06/2025 [facility] Service Area Work Phone: Comment on above: Expected: 06/06/2024 (Approximate), Expi res: 06/06/2025 Start: 06-06-2024 End: 06-06-2024 Patient encounter procedure 06/06/2024 11:20 AM EDT Office Visit [facility] [address] [place] [address] Yusuf Busby MD [facility]- 3rd floor of the [facility] [address] [place] [address] [facility] Start: 05-21-2024 End: 12-06-2024 Prostate specific Ag [Mass/volume] in Serum or Plasma PSA Lab Routine Prostate CA (Multi) Expected: 05/21/2024 (Approximate), Expires: 12/06/2024 [facility] Service Area Work Phone: Comment on above: Expected: 05/21/2024 (Approximate), Expi res: 12/06/2024 Start: 05-05-2024 Annual Wellness Visit (Medicare) Annual Wellness Visit (Medicare) [facility] Start: 04-26-2024 End: 04-26-2024 Patient encounter procedure 04/26/2024 10:00 AM EST Office Visit CP [facility] [address] [facility] [place] [address] Yusuf Dean, DPM [address] [facility] [place] [address] [facility] Start: 03-16-2024 Diabetic foot examination Diabetic Foot Exam [facility] Start: 03-15-2024 BP Controlled (<130/80) BP Controlled (<130/80) [facility] in Start: 02-23-2024 End: 02-23-2024 Patient encounter procedure [facility] Comment on above: also fitting for shoes Start: 02-21-2024 Advance Directive Discussion Advance Directive Discussion [facility] Start: 02-19-2024 End: 02-19-2024 ambulatory 02/19/2024 11:50 AM EST Visit (SP) Office Hematology/Medical Oncology [address] [place] [address] [place] [address] [place] [address] Return in about 6 months (around 02/02/2024). Hematology/Medical Oncology Comment on above: Return in about 6 months (around 024). Start: 02-18-2024 Screening for malignant neoplasm of colon [facility] Start: 02-16-2024 End: 02-16-2024 ambulatory 02/16/2024 11:10 AM EST Visit (SP) Office Hematology/Medical Oncology [address] [place] [address] [place] [address] [place] [address] Return in about 6 months (around 02/02/2024). Hematology/Medical Oncology Comment on above: Return in about 6 months (around 024). 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, unspecified B-cell lymphoma type (HCC) Expected: 02/02/2024, Expires: 05/03/2024 [facility] Comment on above: Expected: 02/02/2024, Expires: Start: 12-15-2023 End: 12-15-2023 Patient encounter procedure 12/15/2023 9:00 AM EDT Office Visit CP [facility] [address] [facility] [place] [address] Yusuf Dean DPM [address] [facility] [place] [address] also follow up right foot pain [facility] Comment on above: also follow up right foot pain Start: 12-07-2023 End: 12-07-2023 Patient encounter procedure 12/07/2023 11:30 AM EDT Office Visit [facility] [address] [place] [address] Yusuf Busby MD [facility]- 3rd floor of the [facility] [address] [place], [place] [id number] [facility] Start: 12-06-2023 End: 12-06-2023 Patient encounter procedure 12/06/2023 9:30 AM EDT Office Visit [facility] [address] [facility] [place] [address] Yusuf Dean DPM [address] [facility] [place] [address] [facility] Start: 11-14-2023 End: 11-14-2023 Prostate needle biopsy any approach Biopsy Prostate Elevated PSA 11/14/2023 8:40 AM EDT [facility] Start: 11-10-2023 Annual PCP Team Chronic Disease Visit Annual PCP Team Chronic Disease Visit [facility] Start: 11-02-2023 End: 11-02-2023 Patient encounter procedure 11/02/2023 11:30 AM EDT Office Visit [facility] [address] [place] [address] Yusuf Busby MD [facility] 3rd floor of [facility] [address] [place] [address] [facility] Start: 10-22-2023 Covid-19 Vaccine ( season) Covid-19 Vaccine () [facility] Start: 10-22-2023 Influenza vaccination [facility] Start: 10-03-2023 End: 10-03-2023 Patient encounter procedure 10/03/2023 9:30 AM EDT Office Visit CP [facility] [address] [facility] [place] [address] Yusuf Dean, ROMA [address] [facility] [place] [address] [facility] Start: 08-18-2023 End: 08-18-2023 ambulatory 08/18/2023 3:00 PM EDT [facility] Cardiology [address] [place] [address] Lopez Hollis MD [address] [place] [address] Dx: HEART MURMUR; Atrial fibrillation, unspecified type Cardiology Comment on above: Dx: HEART MURMUR; Atrial fibrillation, u nspecified type Start: 08-16-2023 End: 08-16-2023 Patient encounter procedure 08/16/2023 11:00 AM EDT Office Visit Division of Hematology & Oncology at [facility] [address] [place] [address] Iris Nava MD [address] [place] [address] Division of Hematology & Oncology at [facility] Start: 08-03-2023 End: 08-03-2023 ambulatory 08/03/2023 11:10 AM EDT Visit (SP) Office Hematology/Medical Oncology [address] [place] [address] [place] [address] [place] [address] Return in about 4 weeks (around 08/03/2023). Hematology/Medical Oncology Comment on above: Return in about 4 weeks (around ). Start: 08-01-2023 End: 08-01-2023 Patient encounter procedure 08/01/2023 9:30 AM EDT Office Visit CP [facility] [address] [facility] [place] [address] Yusuf Dean DPM [address] [facility] [place] [address] [facility] Start: 07-24-2023 End: 07-24-2023 Patient encounter procedure 07/24/2023 1:30 PM EDT Appointment Gastroenterology [address] [address] Erin Rivera MD [address] [place] [address] MALT lymphoma Gastroenterology Comment on above: MALT lymphoma Start: 07-06-2023 End: 10-05-2023 MONOCLONAL PROT UR W/[facility] Comment on above: Expected: 07/06/2023, Expires: Start: 07-06-2023 End: 10-05-2023 MONOCLONAL PROTEIN, SERUM (BLOOD) [facility] Comment on above: Expected: 07/06/2023, Expires: Start: 07-06-2023 End: 10-05-2023 PROTEIN ELECT RND UR W/[facility] Work Phone: Comment on above: Expected: 07/06/2023, Expires: Start: 07-06-2023 End: 10-05-2023 PROTEIN ELECTROPHORESIS SERUM W/[facility] Comment on above: Expected: 07/06/2023, Expires: Start: 07-06-2023 End: 07-06-2023 ambulatory 07/06/2023 11:10 AM EDT Visit (SP) Office Hematology/Medical Oncology [address] [place] [address] [place] [address] [place] [address] H pylori Breath test and stool test now and in 3 months Hematology/Medical Oncology Comment on above: H pylori Breath test and stool test now and in 3 months Start: 07-05-2023 End: 10-04-2023 CBC W Auto Differential panel - Blood CBC + DIFF Lab Routine 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 pylori infection Platelets decreased (HCC) Expected: 07/05/2023 (Approximate), Expires: 10/04/2023 [facility] Work Phone: Comment on above: Expected: 07/05/2023 (Approximate), Expi res: 10/04/2023 Start: 07-03-2023 End: 07-03-2023 ambulatory 07/03/2023 7:30 AM EDT Results Only [facility] [address] [place] [address] lab [facility] Comment on above: lab Start: 06-26-2023 End: 06-26-2023 Nursing evaluation of patient and report 06/26/2023 8:00 AM EDT Nurse Visit Gastroenterology [address] [address] 2, Nurse Gi Lab [address] [address] 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 Gastroenterology Comment on above: B-cell lymphoma of extranodal site exclu ding spleen and other solid organs, unsp... 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 pylori infection Expected: 04/06/2023, Expires: 07/06/2023 [facility] Work Phone: Comment on above: Expected: 04/06/2023, Expires: Start: 02-20-2023 Advance Directive Discussion Advance Directive Discussion [facility] Start: 02-20-2023 Behavioral Health Screening Behavioral Health Screening [facility] Start: 02-20-2023 Depression Assessment Depression Assessment [facility] [facility] Start: 01-04-2023 3 comp foot exam completed DIABETIC FOOT EXAM [facility] Start: 10-21-2022 Covid-19 Vaccine ( season) Covid-19 Vaccine (2022- season) [facility] Start: 10-21-2022 Influenza vaccination Influenza Vaccine (#1) [facility] Start: 03-31-2022 VANESSA, Provider: Yusuf Busby, Status: Pen, Time: 1:20 PM VANESSA, Provider: Yusuf Busby, Status: Pen, Time: 1:20 PM [id number] Work Phone: Start: 02-20-2022 ADVANCE DIRECTIVE DISCUSSION ADVANCE DIRECTIVE DISCUSSION [facility] Start: 02-20-2022 DEPRESSION ASSESSMENT DEPRESSION ASSESSMENT [facility] Start: 02-17-2022 VANESSA, Provider: Yusuf Busby, Status: Pen, Time: 9:50 AM VANESSA, Provider: Yusuf Busby, Status: Pen, Time: 9:50 AM [id number] Work Phone: Start: 10-21-2021 Influenza vaccination INFLUENZA (#1) [facility] Start: 05-23-2021 DTaP/Tdap/Td vaccine (2 - Td or Tdap) DTaP/Tdap/Td vaccine (2 - Td or Tdap) [facility] Start: 05-23-2021 DTaP/Tdap/Td Vaccines (2 - Td or Tdap) DTaP/Tdap/Td Vaccines (2 - Td or Tdap) [facility] Start: 05-23-2021 Tetanus vaccination TETANUS [facility] Start: 05-23-2021 Urine microalbumin profile [facility] Start: 02-20-2021 ADVANCE DIRECTIVE DISCUSSION ADVANCE DIRECTIVE DISCUSSION [facility] Start: 02-20-2021 DEPRESSION ASSESSMENT DEPRESSION ASSESSMENT [facility] Start: 11-28-2017 Colonoscopy COLONOSCOPY [facility] Start: 11-28-2017 COLORECTAL CANCER SCREENING COLORECTAL CANCER SCREENING [facility] Start: 11-28-2017 Screening for malignant neoplasm of colon COLORECTAL CANCER SCREENING DISCUSSION [facility] Start: 03-23-2017 Medicare Annual Wellness Visit Medicare Annual Wellness Visit [facility] Start: 12-26-2015 Abdominal aortic aneurysm screening ABDOMINAL AORTIC ANEURYSM HIGH RISK SCREEN [facility] Start: 06-22-2015 Hepatitis B surface antibody level LDL CHOLESTEROL [facility] Start: 12-22-2014 Hemoglobin A1c measurement HbA1C [facility] Start: 12-22-2014 Hemoglobin A1c/Hemoglobin.total in Blood HBA1C [facility] Start: 2010 Hepatitis B Vaccine (1 of 3 - Risk 3-dose series) Hepatitis B Vaccine (1 of 3 - Risk 3-dose series) [facility] Start: 2010 Respiratory Syncytial Virus (RSV) or age 60 yrs+ (1 - Risk 60-74 years 1-dose series) Respiratory Syncytial Virus (RSV) or age 60 yrs+ (1 - Risk 60-74 years 1-dose series) [facility] Start: 2010 RSV High Risk: (Elderly (60+) or Population) (1 - Risk 60-74 years 1-dose series) RSV High Risk: (Elderly (60+) or Population) (1 - Risk 60-74 years 1-dose series) [facility] Start: 2010 RSV patients and/or patients aged 60+ years (1 - 1-dose 60+ series) RSV patients and/or patients aged 60+ years (1 - 1-dose 60+ series) [facility] Start: 2010 RSV Vaccine (1 - 1-dose 60+ series) RSV Vaccine (1 - 1-dose 60+ series) [facility] Start: 2010 RSV Vaccine (1 - Risk 60-74 years 1-dose series) RSV Vaccine (1 - Risk 60-74 years 1-dose series) [facility] Start: 2000 Prostate specific antigen measurement PROSTATE CANCER SCREENING DISCUSSION [facility] Start: 2000 SHINGRIX VACCINE (1 of 2) SHINGRIX VACCINE (1 of 2) [facility] Start: 2000 Zoster Vaccines (1 of 2) Zoster Vaccines (1 of 2) [facility] Start: 12-26-1995 COLOGUARD (FIT-DNA) COLOGUARD (FIT-DNA) [facility] Start: 12-26-[address] COLONOGRAPHY [facility] Start: 12-26-1995 FECAL OCCULT BLOOD FECAL OCCULT BLOOD [facility] Start: 12-26-1995 Screening for malignant neoplasm of colon [facility] Start: 12-26-1995 SIGMOIDOSCOPY SIGMOIDOSCOPY [facility] Start: 1990 Lipid panel LIPID SCREENING [facility] Start: 1990 Prostate specific antigen measurement Prostate Specific Antigen (PSA) Screening or Monitoring [facility] Start: 1972 DTaP/Tdap/Td Vaccines (1 - Tdap) DTaP/Tdap/Td Vaccines (1 - Tdap) [facility] Start: 1969 Pneumococcal 50+ years Vaccine (1 of 2 - PCV) Pneumococcal 50+ years Vaccine (1 of 2 - PCV) [facility] Start: 1969 Pneumococcal vaccination [facility] Start: 1969 Pneumococcal Vaccine: 50+ (1 of 2 - PCV) Pneumococcal Vaccine: 50+ (1 of 2 - PCV) [facility] Start: 1969 Shingles vaccine (1 of 2) Shingles vaccine (1 of 2) [facility] Start: 1969 Shingrix Vaccine (1 of 2) Shingrix Vaccine (1 of 2) [facility] Start: 1969 Urine screening for protein Diabetes: Urine Protein Screening [facility] Start: 1969 Zoster vaccine hzv live for subcutaneous use ZOSTER (SHINGLES) VACCINE (1 of 2) [facility] Start: 1969 Zoster Vaccines (1 of 2) Zoster Vaccines (1 of 2) [facility] Start: 1968 ANNUAL PCP TEAM CHRONIC DISEASE VISIT ANNUAL PCP TEAM CHRONIC DISEASE VISIT [facility] Start: 1968 Anxiety Screening Anxiety Screening [facility] Start: 1968 BP CONTROLLED (<130/80) BP CONTROLLED (<130/80) [facility] Start: 1968 Depression Screening Depression Screening [facility] Start: 1968 Glaucoma screening Diabetic retinal exam [facility] Start: 1968 Hepatitis C screening [facility] Start: 1960 3 comp foot exam completed DIABETIC FOOT EXAM [facility] Start: 1960 Diabetic foot examination [facility] Start: 1960 Glaucoma screening [facility] Start: 1960 Hepatitis B screening URINE ALBUMIN:CREATININE RATIO [facility] Start: 11-05-1961 Hepatitis C antibody, confirmatory test DILATED RETINAL EXAM [facility] Start: 1960 Lipid panel Lipids Bon [facility] Start: 1956 Pneumococcal vaccination PNEUMOCOCCAL VACCINE SERIES (1 of 2 - PCV) [facility] Start: 1956 Pneumococcal Vaccine: 65+ (1 - PCV) Pneumococcal Vaccine: 65+ (1 - PCV) [facility] Start: 1956 Pneumococcal Vaccine: 65+ (1 of 2 - PCV) Pneumococcal Vaccine: 65+ (1 of 2 - PCV) [facility] Start: 1956 Pneumococcal Vaccine: 65+ Years (1 - PCV) Pneumococcal Vaccine: 65+ Years (1 - PCV) [facility] Start: 1956 Pneumococcal Vaccine: 65+ Years (1 of 2 - PCV) Pneumococcal Vaccine: 65+ Years (1 of 2 - PCV) [facility] Start: 1956 PNEUMOCOCCAL: 65+ (1 - PCV) PNEUMOCOCCAL: 65+ (1 - PCV) [facility] Start: 12-26-1955 COVID-19 VACCINE (#1) COVID-19 VACCINE (#1) [facility] Start: 12-26-1951 MMR Vaccines (1 of 1 - Standard series) MMR Vaccines (1 of 1 - Standard series) [facility] Start: [birth year]25-1951 COVID-19 VACCINE (#1) COVID-19 VACCINE (#1) [facility] Start: 1950 Cyanocobalamin vitamin b-12 Vitamin B-12 [facility] Start: 1950 Diabetes: Celiac Disease Screening Diabetes: Celiac Disease Screening [facility] Start: 1950 Hemoglobin A1c measurement Diabetes: Hemoglobin A1C [facility] Start: 1950 Hepatitis C screening HEPATITIS C VIRUS SCREENING [facility] Start: 1950 Lipid panel Lipid Panel [facility] Start: 1950 Medicare Annual Wellness Visit Medicare Annual Wellness Visit (AWV) [facility] Start: 1950 Screening for malignant neoplasm of colon [facility] Start: 1950 Thyroid stimulating hormone measurement [facility] End: 11-14-2023 Blood type and Indirect antibody screen panel - Blood Type And Screen Lab STAT STAT (Lab) for 1 Occurrences starting 11/14/2023 until 11/14/2023 [facility] Work Phone: Comment on above: STAT (Lab) for 1 Occurrences starting until 11/14/2023 End: 10-06-2025 CT Abdomen and Pelvis W contrast IV CT ABD/PEL W IVCON Radiology Routine 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, unspecified B-cell lymphoma type (HCC) 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) Prostate cancer managed with active surveillance (HCC) 1 Occurrences starting 09/06/2024 until 10/06/2025 [facility] Comment on above: 1 Occurrences starting 09/06/2024 until 10/06/2025 End: 10-06-2025 CT Chest W contrast IV CT CHEST W IVCON Radiology Routine 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, unspecified B-cell lymphoma type (HCC) 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) Prostate cancer managed with active surveillance (HCC) 1 Occurrences starting 09/06/2024 until 10/06/2025 [facility] Comment on above: 1 Occurrences starting 09/06/2024 until 10/06/2025 End: 03-31-2024 ECG COMPLETE ECG COMPLETE ECG Routine Heart murmur Heart valve disorder 1 Occurrences starting 03/31/2023 until 03/31/2024 [facility] Work Phone: Comment on above: 1 Occurrences starting 03/31/2023 until 03/31/2024 End: 03-31-2024 Echocardiography ECHO Cardiology Routine Heart murmur Heart valve disorder 1 Occurrences starting 03/31/2023 until 03/31/2024 [facility] Work Phone: Comment on above: 1 Occurrences starting 03/31/2023 until 03/31/2024 End: 12-09-2023 EGD DIAGNOSTIC EGD DIAGNOSTIC Endoscopy Routine Globus sensation 1 Occurrences starting 12/08/2022 until 12/09/2023 [facility] Work Phone: Comment on above: 1 Occurrences starting 12/08/2022 until 12/09/2023 End: 08-08-2024 EGD DIAGNOSTIC EGD DIAGNOSTIC Endoscopy Routine MALT lymphoma (HCC) 1 Occurrences starting 08/09/2023 until 08/08/2024 [facility] Work Phone: Comment on above: 1 Occurrences starting 08/09/2023 until 08/08/2024 End: 08-18-2024 EGD DIAGNOSTIC EGD DIAGNOSTIC Endoscopy Routine 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) 1 Occurrences starting 08/19/2023 until 08/18/2024 [facility] Work Phone: Comment on above: 1 Occurrences starting 08/19/2023 until 08/18/2024 End: 09-06-2025 EGD DIAGNOSTIC EGD DIAGNOSTIC Endoscopy Routine 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, unspecified B-cell lymphoma type (HCC) 1 Occurrences starting 09/06/2024 until 09/06/2025 [facility] Comment on above: 1 Occurrences starting 09/06/2024 until 09/06/2025 EKG 12 Lead EKG 12 Lead ECG STAT 09/16/2024 10:38 PM EDT [facility] End: 11-14-2023 Glucose [Mass/volume] in Serum or Plasma POCT Glucose Point of Care Testing - Docked Device Routine Once (Lab) for 1 Occurrences starting 11/14/2023 until 11/14/2023 [facility] Work Phone: Comment on above: Once (Lab) for 1 Occurrences starting until 11/14/2023 Helicobacter pylori [Quantitative] in Stomach by urea breath test BREATH TEST FOR HELICOBACTER PYLORI Lab Routine 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 pylori infection Ordered: 04/06/2023 [facility] Work Phone: Comment on above: Ordered: 04/06/2023 MR Prostate MR prostate with bessy boundaries if pirads 3 or above Imaging Routine Elevated PSA 10/23/2024 10:15 AM EDT [facility] Work Phone: OUTSIDE VENDOR CARDI AC OUTPATIENT EXTENDED RHYTHM RECORDING (WITHOUT TELEMETRY) OUTSIDE VENDOR CARDIAC OUTPATIENT EXTENDED RHYTHM RECORDING (WITHOUT TELEMETRY) Holter Routine Atrial fibrillation, unspecified type (HCC) Ordered: 06/13/2023 [facility] Work Phone: Comment on above: Ordered: 06/13/[address] attenuation whole body NM PET/CT WHOLE BODY INITIAL Radiology Routine 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 Work Phone: Comment on above: Once for 1 Occurrences starting 11/14/19 until 11/14/2023 End: 12-09-2023 Screening colonoscopy COLONOSCOPY SCREENING Endoscopy Routine Colon cancer screening 1 Occurrences starting 12/08/2022 until 12/09/2023 [facility] Work Phone: Comment on above: 1 Occurrences starting 12/08/2022 until 12/09/2023 SURGICAL PATHOLOGY [facility] Work Phone: Comment on above: Release Upon Ordering for 1 Occurrences starting 07/24/2023, 1 completed SURGICAL PATHOLOGY [facility] Work Phone: Comment on above: Release Upon Ordering for 1 Occurrences starting 02/05/2024, 1 completed Surgical pathology study Surgica l Pathology Exam Pathology and Cytology Routine Elevated PSA Release Upon Ordering for 1 Occurrences starting 11/14/2023 [facility] Work Phone: Comment on above: Release Upon Ordering for 1 Occurrences starting 11/14/2023 Tissue Pathology bio psy report [facility] Work Phone: Comment on above: Release Upon Ordering for 1 Occurrences starting 08/12/2024, 1 completed End: 11-01-2024 XR Foot - right AP and Lateral and oblique XR FOOT GENERAL 3V AP/LAT/OBL RIGHT Radiology Routine Arthritis of right foot 1 Occurrences starting 10/03/2023 until 11/01/2024 [facility] Work Phone: Comment on above: 1 Occurrences starting 10/03/2023 until 11/01/2024 [facility] Immunizations Immunization Date Immunization Notes Care Provider [facility] 12-20-2019 influenza, high dose seasonal, preservative-free Zeina Mukhdomi PA-C Work Phone: [facility] 12-20-2019 Influenza, High-dose Seasonal, Quadrivalent, Preservative Free Iris Nava MD Work Phone: [facility] 12-20-2019 influenza virus vaccine, unspecified formulation Zeina Mukhdomi PA-C Work Phone: [facility] 05-24-2011 tetanus toxoid, redu tiffanie diphtheria toxoid, and acellular pertussis vaccine, adsorbed Yusuf Dean DPM Work Phone: [facility] Payers Date Payer Category Payer Self-pay [id number] 2021 Private Health Insurance MMO MED ICARE SUPPLEMENT [id number] 2020 Managed Care (unspecified) MEDICARE SUPPLEMENT [id number] 2020 Unknown [id number] 2017 Medicare [id number] 2016 Unknown [id number]. [id number] 2015 Medicare [id number] 1950 Unknown [id number] 2.840.1.050836.3.579.2. 356 1950 Unknown [id number] 2.0.1.217471.3.579.2. 356 1950 Unknown [id number] 2.16840.1.534605.3.579.2. 356 1950 Unknown [id number] 2.16840.1.173265.3.579.2. 356 1950 Unknown [id number] 2.16840.1.670515.3.579.2. 356 1950 Unknown [id number] 2.16.840.1.310967.3.579.2. 1245 1950 Unknown [id number] 2.16.840.1.030876.3.579.2. 1245 1950 Unknown [id number] 2.16.840.1.349886.3.579.2. 594 1950 Unknown [id number] 2.16.840.1.822070.3.579.2. 594 1950 Unknown [id number] 2.16.840.1.465360.3.579.2. 594 1950 Unknown [id number] 2.16.840.1.344385.3.579.2. 182 1950 Unknown [id number] 2.16.840.1.289946.3.579.2. 1246 1950 Unknown [id number] 2.16.840.1.850203.3.579.2. 1242 1950 Unknown [id number] 2.16.840.1.591539.3.579.2. 1242 1950 Unknown [id number] 2.16.840.1.592402.3.579.2. 1242 1950 Unknown [id number] 2.16.840.1.124583.3.579.2. 1242 1950 Unknown [id number] 2.16.840.1.214460.3.579.2. 1242 Self-pay [id number] Unknown [id number] Unknown [facility] ADV [id number] Unknown [id number] 2.16.840.1.583845.3.579.2. 462 Unknown [id number] 2.16.840.1.514286.3.579.2. 462 Unknown [id number] 2.16.840.1.464329.3.579.2. 462 Social History Date Type Detail Facility Start: 09-12-2019 End: 04-15-2022 Tobacco smoking status CTIS Unknown if ever smoked [facility] Start: 1950 Sex Assigned At Male [facility] Start: 10-19-2011 End: 10-18-2023 Tobacco smoking status NHIS Never smoked tobacco [facility] Start: 10-19-2011 End: 10-18-2023 Tobacco use and exposure Smokeless tobacco non-user [facility] Start: 12-20-2021 End: 10-24-2024 Alcohol intake Current drinker of alcohol (finding) [facility] Start: 12-20-2021 End: 06-06-2024 Alcohol intake [facility] Start: 03-18-2013 Alcohol Comment occasionally [facility] Start: 1950 Sex Assigned At Not on file [facility] Start: 01-04-2022 End: 06-06-2024 Exposure to SARS-CoV-2 (event) Not sure [facility] Start: 11-08-2022 End: 06-06-[address] [employer] [facility] Has the [employer], or [employer] threatened to shut off services in your home in past 12Mo No [facility] Do you belong to any clubs or organizations such as jainism groups, unions, fraternal or athletic groups, or school groups? Yes [facility] Start: 01-15-2022 How often do you attend meetings of the clubs or organizations you belong to? Patient refused [facility] Are you now , , , , never or living with a partner? Living with partner [facility] Do you feel stress - tense, restless, nervous, or anxious, or unable to sleep at night because your mind is troubled all the time - these days [OSQ] Not at all [facility] (I/We) worried cristian er (my/our) food would run out before (I/we) got money to buy more. Never true [facility] The food that (I/we) bought just didn't last, and (I/we) didn't have money to get more. DK or Refused [facility] Start: 05-31-2023 End: 04-08-2024 Tobacco smoking status NHIS Ex-smoker [facility] Start: 02-20-1969 End: 02-20-1970 History of tobacco use Current smoker [facility] Start: 02-20-1969 End: 02-20-1970 History of tobacco use Cigarette Smoker [facility] Start: 05-30-2023 Gender identity Identifies as male gender (finding) [facility] Start: 05-30-2023 Sexual orientation Heterosexual (finding) [facility] Start: 06-13-2023 End: 09-13-2024 Alcohol intake Ex-drinker (finding) [facility] Start: 03-31-2023 End: 03-12-2024 Sex Male (finding) [facility] Start: 09-04-2024 Alcohol Comment Social drinker [facility] Work Phone: How often to you hav e a drink containing alcohol? Never Bon [facility] Medical Equipment Procedure Code Equipment Code Equipment Origin al Text Equipment Identifier Dates Blood Sugar Diagnostic (Onetouch Ultra Test) strip Start: 11-16-2021 Blood Sugar Diagnostic (Onetouch Ultra Blue Test Strip) strip Start: 10-30-2017 End: 11-03-2017 Blood Sugar Diagnostic (Onetouch Ultra Blue Test Strip) strip Start: 11-03-2017 End: 02-22-2019 Blood Sugar Diagnostic (Onetouch Ultra Blue Test Strip) strip Start: 02-22-2019 End: 02-19-2020 Blood Sugar Diagnostic (Onetouch Ultra Blue Test Strip) strip Start: 02-19-2020 End: 11-05-2020 Blood Sugar Diagnostic (Onetouch Ultra Blue Test Strip) strip Start: 11-05-2020 End: 11-06-2020 [id number], [id number] Start: 07-16-2014 End: 06-13-2023 Comment on above: Use as instructed tw ice daily 250.0 Use as instructed on ce daily 250.0 Blood Sugar Diagnostic (Onetouch Ultra Test) strip Start: 11-16-2021 Blood Sugar Diagnostic (Onetouch Ultra Blue Test Strip) strip Start: 10-30-2017 End: 11-03-2017 Blood Sugar Diagnostic (Onetouch Ultra Blue Test Strip) strip Start: 11-03-2017 End: 02-22-2019 Blood Sugar Diagnostic (Onetouch Ultra Blue Test Strip) strip Start: 02-22-2019 End: 02-19-2020 Blood Sugar Diagnostic (Onetouch Ultra Blue Test Strip) strip Start: 02-19-2020 End: 11-05-2020 Blood Sugar Diagnostic (Onetouch Ultra Blue Test Strip) strip Start: 11-05-2020 End: 11-06-2020 Blood Sugar Diagnostic (Onetouch Ultra Test) strip Start: 11-17-2022 Blood Sugar Diagnostic (Onetouch Ultra Blue Test Strip) strip Start: 10-30-2017 End: 11-03-2017 Blood Sugar Diagnostic (Onetouch Ultra Blue Test Strip) strip Start: 11-03-2017 End: 02-22-2019 Blood Sugar Diagnostic (Onetouch Ultra Blue Test Strip) strip Start: 02-22-2019 End: 02-19-2020 Blood Sugar Diagnostic (Onetouch Ultra Blue Test Strip) strip Start: 02-19-2020 End: 11-05-2020 Blood Sugar Diagnostic (Onetouch Ultra Blue Test Strip) strip Start: 11-05-2020 End: 11-06-2020 Blood Sugar Diagnostic (Onetouch Ultra Test) strip Start: 11-16-2021 End: 07-01-2022 Blood Sugar Diagnostic (Onetouch Ultra Test) strip Start: 07-01-2022 End: 07-01-2022 Blood Sugar Diagnostic (Onetouch Ultra Test) strip Start: 07-01-2022 End: 07-05-2022 Blood Sugar Diagnostic (Onetouch Ultra Test) strip Start: 07-05-2022 End: 07-22-2022 Blood Sugar Diagnostic (Onetouch Ultra Test) strip Start: 07-22-2022 End: 11-17-2022 Blood Sugar Diagnostic (Onetouch Ultra Test) strip Start: 11-17-2022 Blood Sugar Diagnostic (Onetouch Ultra Blue Test Strip) strip Start: 10-30-2017 End: 11-03-2017 Blood Sugar Diagnostic (Onetouch Ultra Blue Test Strip) strip Start: 11-03-2017 End: 02-22-2019 Blood Sugar Diagnostic (Onetouch Ultra Blue Test Strip) strip Start: 02-22-2019 End: 02-19-2020 Blood Sugar Diagnostic (Onetouch Ultra Blue Test Strip) strip Start: 02-19-2020 End: 11-05-2020 Blood Sugar Diagnostic (Onetouch Ultra Blue Test Strip) strip Start: 11-05-2020 End: 11-06-2020 Blood Sugar Diagnostic (Onetouch Ultra Test) strip Start: 11-16-2021 End: 07-01-2022 Blood Sugar Diagnostic (Onetouch Ultra Test) strip Start: 07-01-2022 End: 07-01-2022 Blood Sugar Diagnostic (Onetouch Ultra Test) strip Start: 07-01-2022 End: 07-05-2022 Blood Sugar Diagnostic (Onetouch Ultra Test) strip Start: 07-05-2022 End: 07-22-2022 Blood Sugar Diagnostic (Onetouch Ultra Test) strip Start: 07-22-2022 End: 11-17-2022 Blood Sugar Diagnostic (Onetouch Ultra Test) strip Start: 11-21-2023 Blood Sugar Diagnostic (Onetouch Ultra Blue Test Strip) strip Start: 10-30-2017 End: 11-03-2017 Blood Sugar Diagnostic (Onetouch Ultra Blue Test Strip) strip Start: 11-03-2017 End: 02-22-2019 Blood Sugar Diagnostic (Onetouch Ultra Blue Test Strip) strip Start: 02-22-2019 End: 02-19-2020 Blood Sugar Diagnostic (Onetouch Ultra Blue Test Strip) strip Start: 02-19-2020 End: 11-05-2020 Blood Sugar Diagnostic (Onetouch Ultra Blue Test Strip) strip Start: 11-05-2020 End: 11-06-2020 Blood Sugar Diagnostic (Onetouch Ultra Test) strip Start: 11-16-2021 End: 07-01-2022 Blood Sugar Diagnostic (Onetouch Ultra Test) strip Start: 07-01-2022 End: 07-01-2022 Blood Sugar Diagnostic (Onetouch Ultra Test) strip Start: 07-01-2022 End: 07-05-2022 Blood Sugar Diagnostic (Onetouch Ultra Test) strip Start: 07-05-2022 End: 07-22-2022 Blood Sugar Diagnostic (Onetouch Ultra Test) strip Start: 07-22-2022 End: 11-17-2022 Blood Sugar Diagnostic (Onetouch Ultra Test) strip Start: 11-17-2022 End: 11-21-2023 Blood Sugar Diagnostic strip Start: 10-30-2017 End: 11-16-2021 Blood Sugar Diagnostic strip Start: 11-06-2020 End: 05-11-2021 Blood Sugar Diagnostic strip Start: 05-11-2021 End: 11-16-2021 Functional Status Date Assessment Result Facility 06-06-2024 Patient [facility] ionnaire 2 item (PHQ-2) [Reported] [facility] Work Phone: 08-06-2014 Are you deaf, or do you have serious difficulty hearing No 08/06/2014 2:40 PM EDT Romi Sweet MA No [facility] 08-06-2014 Are you blind, or do you have serious difficulty seeing, even when wearing glasses No 08/06/2014 2:40 PM EDT Romi Sweet MA No [facility] 08-06-2014 Do you have serious difficulty walking or climbing stairs No 08/06/2014 2:40 PM EDT Romi Sweet MA No [facility] 08-06-2014 Do you have difficul ty dressing or bathing No 08/06/2014 2:40 PM EDT Romi Sweet MA No [facility] 08-06-2014 Because of a physica l, mental, or emotional condition, do you have difficulty doing errands alone such as visiting a physician's office or shopping No 08/06/2014 2:40 PM EDT Romi Sweet MA No [facility] Mental Status Date Assessment Result Facility 08-06-2014 Because of a physica l, mental, or emotional condition, do you have serious difficulty concentrating, remembering, or making decisions Yes 08/06/2014 2:40 PM EDT Romi Sweet MA Yes [facility] Clinical Notes 10-20-2011 to 10-31-2024 Yusuf Busby MD - 10/31/2024 9:10 AM EDTDeidrecharYusuf Hartman DPM - 09/13/2024 9:14 AM Meri Parikh - 09/13/2024 9:01 AM EDT Note Date & Type Note Facility 10-31-2024 History of Present illness Narrative HPI 73 y.o. 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 Family history includes father [...] was obtained instead. 03/31/22 - seen over [facility]. in [place] currently ExoDx 03/2021 PSA history 03/2022 - 4.1 12/2021 - 7.03 (11% free) 10/2021 - 5.96 01/05/2023 - seen today via thv for a psa check. Doing well. 07/19/23 - seen over th to review 6mo PSA. 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 Also now with afib. 09/07/23 - seen back over [facility]V to discuss recent PSA. No blood thinners; afib was worked up with a Holter monitor, echo and no anticoagulation recommended. 10/18/23 -here for biopsy. Risks, effects, alternatives discussed. He did receive IM ceftriaxone. Bx aborted 03/24 patient discomfort 11/14/23 - TP prostate bx in OR with Dr. Gale. Path - Gl 6 L posterior base (5% of specimen), L paramedian base (50% of specimen), L paramedian apex (5% of specimen) 12/07/23 -here to discuss pathology. Did well with biopsy. 06/06/24 - Doing well overall. Here to review PSA. 09/05/24 - Seen today over telehealth, performed this visit using real-time telehealth tools, including an audio/video connection between Jennifer Tidwell at home and Yusuf Busby MD at [facility]. Consent for telemedicine visit was obtained. Doing well overall. Here to review PSA. Path reviewed at [facility], upgrade to Gl 3+4, tumor was 30% of specimen, pattern 4 under 5% 10/23/24 MRI prostate 1. There is no evidence of clinically significant neoplasm. PIRADS 2 2. Prostate weight is estimated at 32.2g. PSAd is 0.258 ng/mL/g. 10/31/24 - Seen today over telehealth, performed this visit using real-time telehealth tools, including an audio/video connection between Jennifer Tidwell at home and Yusuf Busby MD at [facility]. Consent for telemedicine visit was obtained. Doing well, here to review MRI. PSA 03/2024 - 7.9 Lab Results Component Value Date PSA 7.83 (H) 08/29/2024 PSA 8.29 (H) 05/21/2024 PSA 6.57 (H) 09/05/2023 PSA 6.17 (H) 07/18/2023 PSA 5.27 (H) 11/18/2022 Current Medications: Current Medications[1] Active Problems: Jennifer Tidwell is a 73 y.o. male with the following Problems and Medications. Problem List[2] Current Medications[3] PMH: Medical History[4] PSH: Surgical History[5] FMH: Family History[6] SHx: Social History[7] Allergies: RX Allergies[8] Assessment/Plan We reviewed his MRI showing no concerning lesions, PSAd is high but his PSA has always been high. Will continue with active surveillance for now, if PSA continues to rise, will then consider doing a biopsy. FU 4 mo over with PSA prior. Scribe Attestation By signing my name below, I, Chalino Crowder, Ileanaibmei, attest that this documentation has been prepared under the direction and in the presence of Yusuf Busby MD. [1] Current Outpatient Medications Medication Sig Dispense Refill APPLE CIDER VINEGAR ORAL Take by mouth. ascorbic acid (Vitamin C) 1,000 mg tablet Take 1 tablet (1,000 mg) by mouth once daily. diazePAM (Valium) 5 mg tablet Take 1 tablet (5 mg) by mouth 1 time if needed for anxiety for up to 1 dose. 30 mins prior to MRI 1 tablet 0 docosahexaenoic acid/epa (FISH OIL ORAL) Take by mouth. levothyroxine (Synthroid, Levoxyl) 50 mcg tablet Take 1 tablet (50 mcg) by mouth early in the morning.. Take on an empty stomach at the same time each day, either 30 to 60 minutes prior to breakfast sildenafil (Viagra) 100 mg tablet Take 1 tablet (100 mg) by mouth once daily. 1 HOUR BEFORE NEEDED TURMERIC ORAL Take by mouth. vitamin E 450 mg (1000 unit) capsule Take 100 Units by mouth once daily. No current facility-administered medications for this visit. [2] Patient Active Problem List Diagnosis Diabetes 1.5, managed as type 2 (Multi) Elevated PSA Erectile dysfunction Hypothyroidism [3] Current Outpatient Medications Medication Sig Dispense Refill APPLE CIDER VINEGAR ORAL Take by mouth. ascorbic acid (Vitamin C) 1,000 mg tablet Take 1 tablet (1,000 mg) by mouth once daily. diazePAM (Valium) 5 mg tablet Take 1 tablet (5 mg) by mouth 1 time if needed for anxiety for up to 1 dose. 30 mins prior to MRI 1 tablet 0 docosahexaenoic acid/epa (FISH OIL ORAL) Take by mouth. levothyroxine (Synthroid, Levoxyl) 50 mcg tablet Take 1 tablet (50 mcg) by mouth early in the morning.. Take on an empty stomach at the same time each day, either 30 to 60 minutes prior to breakfast sildenafil (Viagra) 100 mg tablet Take 1 tablet (100 mg) by mouth once daily. 1 HOUR BEFORE NEEDED TURMERIC ORAL Take by mouth. vitamin E 450 mg (1000 unit) capsule Take 100 Units by mouth once daily. No current facility-administered medications for this visit. [4] Past Medical History: Diagnosis Date Atrial fib/flutter, transient (Multi) DM (diabetes mellitus) (Multi) Elevated PSA November 2021 Hypothyroidism Kidney stone October 2008 Lymphoma Prostate cancer (Multi) November 2023 Sleep apnea November 2008 [5] Past Surgical History: Procedure Laterality Date CARPAL TUNNEL RELEASE Bilateral CATARACT EXTRACTION Bilateral COLONOSCOPY ELBOW Right ESOPHAGOGASTRODUODENOSCOPY KIDNEY STONE SURGERY October 2008 KNEE Left x4 KNEE Right x3 LITHOTRIPSY August 1999 ROTATOR CUFF REPAIR Left VASECTOMY [6] Family History Problem Relation Name Age of Onset Cancer Father Vince Tidwell Hypertension Father Vince Tidwell Hypertension Father Vince Tidwell [7] Social History Tobacco Use Smoking status: Never Smokeless tobacco: Never Substance Use Topics Alcohol use: Yes Alcohol/week: 2.0 standard drinks of alcohol Types: 2 Cans of beer per week Comment: Social drinker Drug use: Never [8] Allergies Allergen Reactions Hydrocodone Anxiety Oxycodone-Acetaminophen Anxiety Tramadol Anxiety documented in this encounter [facility] Work Phone: 09-16-2024 Hospital Discharge instructions Palacios MD - 09/16/2024 10:56 PM EDT Return for fever, worsening symptoms. Follow-up with your doctor. Thank you. The following attachments cannot be sent through Care Everywhere.Back Pain (Singaporean)Abdominal Pain (Singaporean)documented in this encounter [facility] 09-13-2024 History of Present illness Narrative Patient: Jennifer Tidwell Date: September 13, 2024 PCP: Jerel Bennett APRN.YARD CALLER LDOS: 07/21/2024 Subjective: Jennifer Tidwell is a 73 year old Type II DM male who presents with discolored, thickened, elongated toenails. He states the nails are causing pain and pressure in shoe gear, and is unable to safely manage these nails on their own. Patient also follows up for capsulitis and haskins neuroma right foot today. Patient states he has folllowed all home instructions however states the pain has slowly improved. Patient admits to regular care with his PCP and states his fasting blood glucose was unchecked this morning. Patient denies paresthesias in the bl feet. Patient also admits to some fasciculation and cramping in both lower extremities which has worsened since starting exercising; patient states this is more noticeable in the evenings. Patient lastly presents for dispensing of diabetic shoes with custom molded inserts. Patient admits to n/v/f/c/sob/cp/abdominal pain, and denies any other lower extremity complaints. Past Medical History: PAST MEDICAL HISTORY Diagnosis Date Allergic rhinitis 10/18/2010 Atrial fibrillation (HCC) Diabetes mellitus type 2 (HCC) 02/20/2014 HTN (hypertension) 10/18/2010 Hyperlipidemia MALT lymphoma (HCC) Gastric Migraine with visual aura 05/16/2012 Obstructive sleep apnea Cannot tolerate CPAP Renal stone 02/21/2008 Past Surgical History: PAST SURGICAL HISTORY Procedure Laterality Date EGD EXERCISE STRESS TEST WITH NUCLEAR IMAGES PANEL 02/20/2013 abnormal execise stress NUCLEAR EXERCISE STRESS TEST 02/20/2013 normal PAST SURGICAL HISTORY OF 2 arthroscopies of the L knee, and open surgeries for intrinsic derangement PAST SURGICAL HISTORY OF removal of renal stone ( not sure of the method) PAST SURGICAL HISTORY OF fibula-tibiaotomy of the L PAST SURGICAL HISTORY OF right knee arthroscopy and reconstruction RECONSTRUCTION ROTATOR CUFF AVULSION CHRONIC 07/21/2010 left Allergies: Percocet [Oxycodone-Acetaminophen], Ultram [Tramadol Hcl], and Vicodin [Hydrocodone-Acetaminophen] Current Outpatient Medications Medication Sig cholecalciferol, vitD3,/vit K2 (VITAMIN D3-VITAMIN K2 ORAL) Take by mouth. ascorbic acid (VITAMIN C ORAL) Take by mouth. C/sourcherry/celery/grape seed (TART ACOSTA ORAL) Take by mouth. BLUEBERRY APPLE CIDER VINEGAR ORAL Take by mouth. VITAMIN B COMPLEX ORAL Take by mouth. levothyroxine (SYNTHROID) 50 mcg tablet Take 50 mcg by mouth once daily. OTC NUTRITIONAL SUPPLEMENT once daily. QC Turmeric Apolic Acid Bererdine with Cylon Cinnamon Zinc MCT Oil No current facility-administered medications for this visit. [...] C (98.6 F) Ht 175.3 cm (5' 9) Wt 69.4 kg (153 lb) BMI 22.59 kg/m BMI 22.59 kg/(m^2) DP and PT arteries palpable 1+/4+. CFT< 5 seconds. Skin temperature is Warm to cool from tibial tuberosity to the distal digits bl. Negative hair growth. Skin is thin and [...] the foot and ankle is 5/5 bilateral. Mild pain on palpation with focal edema sub 3rd and 4th MPJ right foot. Minimal pain on palpation 3rd interspace between 3rd and 4th Metatarsals distally right foot. Ankle equinus deformity is moderate and noted to Both feet. Unable to dorsiflex the foot at the level of the ankle joint relative to the leg 10 degrees with knee straight. Unable to dorsiflex the foot at the level of the ankle joint relative to the leg 10 degrees with knee bent to 90 degrees. Toenails 1,2,3,4,5 left and 1,2,3,4,5 right are discolored, elongated, and thickened, and clinically consistent with onychomycosis. Subungual hematoma to the left hallux toenail with 6mm proximal clear growth noted and no onycholysis. Webspaces 1-4 bl are clean, dry, and intact. No interdigital maceration, no masses, no open lesions. XRAY RIGHT FOOT 10/03/2023 IMPRESSION: 1. No acute radiographic abnormality of the bilateral feet There is certification of therapeutic necessity from the physician managing the patient s diabetes within the last three months in the chart as well as documentation of a physician visit in the past six months that documents presence of Medicare qualifying conditions. The inserts comply with all [facility] requirements for custom molded inserts and they are noted to have total contact between the plantar surface of patient foot, including the arch and the inserts. There is adequate space between the end of the longest toe and the distal end of the shoes, no excessive pressure on the tops or side of the feet and no heel slippage. 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 -patient educated on the possible etiology treatment of fasciculation after starting exercise program -continue with with stretching as instructed and follow the hand out daily -start EBM M8 and instructed to keep journal of symptoms -if continues follow with PCP for further systemic evaluation -will monitor from podiatry standpoint -Diabetic shoes and inserts noted to fit [...] shoes and/or inserts develop before next visit. -patient again educated on the etiology and treatment of neuroma and capsulitis -radiographs reviewed and no significant abnormalities noted -patient capsulitis and neuroma pain gradually improving -patient instructed to continue rest, ice, elevate PRN -defers EBM C4 topical broad spectrum CBD due to cost -patient defers injection at this time -continue stretching as instructed today for ankle equinus -patient to continue diabetic shoes with custom diabetic insoles with additional met pad added -patient WBAT -patient instructed not to go barefoot -Instructed to contact our office if any lower extremity problems develop before next visit Return in about 9 weeks (around 11/15/2024). Yusuf Dean DPM Patient unable to verify meds. Advised to bring med list to next visit. Meri Rajput documented in this encounter [facility] 09-06-2024 History of Present illness Narrative Images from the original note were not included. HEMATOLOGY/ONCOLOGY Jennifer Tidwell returns for a follow up EGD/colon performed 02/17/[address] Rivera who ordered Treatment for H pylori 02/24/23: bismuth subsalicylate 262 mg po qid; doxycycline hyclate 100 mg po bid; metronidazole 250 mg po qid; pantoprazole 40 mg po bid. The patient did not take bismuth subsalicylate (only a few doses b/o he is diabetic); therefore he then took Clarithromycin triple therapy 03/07/23. Cardiology referral for atrial fibrillation noted during the procedure. He states he has new diagnosis of prostate cancer [place] 3+3 in October 2023, Dr. Busby (). He is on surveillance. Interim history: Denies bleeding, CP, abdominal pain, headaches, fevers, night sweats or unwanted weight loss. No nausea, vomiting, diarrhea or GI bleed. PMHx, PSHX, FHx and ROS are documented in Epic. All of these were reviewed and verified with patient. Review Of Systems: All systems reviewed with pertinent positives and negatives as outlined in the HPI. Physical Examination: On exam, he appears to be comfortable, in no acute distress. Vitals: see above. Alert and oriented x3. Heart with regular rhythm. No enlarged lymphadenopathy. Abdomen is soft. No hepatosplenomegaly. Lower extremities: No edema. Neuro exam: Nonfocal Labs: 09/02/24 MPA: IgG kappa; UMPA: negative; Latest Reference Range & Units 03/07/23 11:32 07/06/23 12:05 09/02/24 09:04 M-Protein Concentration <=0.00 g/dL 0.42 (H) 0.37 (H) 0.43 (H) Latest Reference Range & Units 02/16/24 11:21 09/02/24 09:04 WBC 3.70 - 11.00 k/uL 6.63 5.82 RBC 4.20 - 6.00 m/uL 4.79 4.69 Hemoglobin 13.0 - 17.0 g/dL 14.3 13.7 Hematocrit 39.0 - 51.0 % 42.5 41.9 Platelet Count 150 - 400 k/uL 164 139 (L) MCV 80.0 - 100.0 fL 88.7 89.3 MCH 26.0 - 34.0 pg 29.9 29.2 MCHC 30.5 - 36.0 g/dL 33.6 32.7 MPV 9.0 - 12.7 fL 9.4 9.4 RDW-CV 11.5 - 15.0 % 12.8 12.5 DTYPE Auto Auto Neut% % 62.1 63.1 Abs Neut (ANC) 1.45 - 7.50 k/uL 4.12 3.67 Lymph% % 26.2 24.7 Abs Lymph 1.00 - 4.00 k/uL 1.74 1.44 Rhea% % 8.9 8.6 Abs Rhea <0.87 k/uL 0.59 0.50 Eosin% % 1.7 1.9 Abs Eosin <0.46 k/uL 0.11 0.11 Baso% % 0.5 0.7 Abs Baso <0.11 k/uL 0.03 0.04 Latest Reference Range & Units 02/16/24 11:21 09/02/24 09:04 Sodium 136 - 144 mmol/L 138 140 Potassium 3.7 - 5.1 mmol/L 4.5 4.7 Chloride 98 - 107 mmol/L 105 106 CO2 22 - 30 mmol/L 30 30 BUN 9 - 24 mg/dL 27 (H) 22 Creatinine 0.73 - 1.22 mg/dL 1.00 0.96 Glucose 74 - 99 mg/dL 121 (H) 124 (H) Protein, Total 6.3 - 8.0 g/dL 6.3 - 8.0 g/dL 7.1 6.5 7.0 Calcium 8.5 - 10.2 mg/dL 9.7 9.7 Albumin 3.9 - 4.9 g/dL 4.4 4.3 Bilirubin, Total 0.2 - 1.3 mg/dL 0.7 0.6 Alkaline Phosphatase 38 - 113 U/L 59 56 ALT 10 - 54 U/L 43 16 AST 14 - 40 U/L 27 14 Anion Gap 8 - 15 mmol/L 3 (L) 4 (L) eGFR >=60 mL/min/1.73m 79 83 03/15/23 Bone marrow, aspirate, touch imprint, clot section and core biopsy: - Normocellular marrow (30%) with trilineage hematopoiesis. - Adequate megakaryocytes. - Stainable iron present without ring sideroblasts. - Plasma cell hyperplasia with slightly increased kappa:lambda ratio (see comment). - No evidence of marrow involvement by lymphoma (see comment). There is no evidence of involvement by a lymphoproliferative disorder or abnormal blast population. Correlation with the clinical and bone marrow histopathologic findings is suggested. 02/17/23 A. 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 - Gastric antral mucosa with chronic active gastritis. - Positive for H. pylori microorganisms (morphologically confirmed on H&E sections). Interphase fluorescence in situ hybridization (FISH) was negative for a rearrangement involving the MALT1 gene (18q21.32). Diagnosis Comment H&E-stained sections in part A reveal gastric antral mucosa with chronic active gastritis and a diffuse vaguely nodular lymphoid infiltrate composed of small mature lymphocytes with abundant cytoplasm, slightly irregular nuclear contours, and intermixed plasma cells. Multifocally, these lymphocytes are infiltrating mucus glands, compatible with lymphoepithelial lesions. H. pylori organisms are also identified on the H&E section. Immunohistochemical stains were performed at [facility] on block A1. A significant majority (80%) of the lymphocytes are atypical B cells, positive for CD20 and CD43. CD3 and CD5 highlight far fewer, scattered background T lymphocytes. FISH testing for a MALT1 rearrangement Addendum Interphase fluorescence in situ hybridization (FISH) was negative for a rearrangement involving the MALT1 gene ([id number]). 02/17/23 EGD: Impression: - Normal hypopharynx. - No gross lesions in the upper third of the esophagus and in the middle third of the esophagus. - Z-line regular, 41 cm from the incisors. - Erythematous mucosa in the gastric body and greater curvature of the gastric antrum. Biopsied. - No gross lesions in the duodenal bulb, in the first portion of the duodenum, in the second portion of the duodenum and in the third portion of the duodenum. - Gastroesophageal flap valve classified as Hill Grade I (prominent fold, tight to endoscope). 02/17/23 colonoscopy: Impression: - Stool in the ascending colon and in the cecum. - Diverticulosis in the recto-sigmoid colon, in the sigmoid colon, in the descending colon and in the ascending colon. - One less than 5 mm, non-bleeding polyp in the sigmoid colon, removed piecemeal using a cold biopsy forceps. Resected and retrieved. - The examination was otherwise normal on direct and retroflexion views. 07/24/23 EGD Impression: - Normal hypopharynx. - Z-line regular, 40 cm from the incisors. - Small sliding hiatal hernia. - Erythematous mucosa in the anterior wall of the gastric antrum. - Clear gastric fluid. - No gross lesions in the duodenal bulb, in the first portion of the duodenum and in the second portion of the duodenum. - Gastroesophageal flap valve classified as Hill Grade I (prominent fold, tight to endoscope). - Five biopsies were obtained on the greater curvature of the gastric body, on the lesser curvature of the gastric body, at the incisura, on the greater curvature of the gastric antrum and on the lesser curvature of the gastric antrum. 07/24/23 SURGICAL PATHOLOGY: [id number] negative for H pylori and for lymphoma A. Antrum, greater curvature, biopsy: -Antral mucosa with chronic inactive gastritis -Negative for Helicobacter pylori B. Antrum, lesser curvature, biopsy: -Antral mucosa with chronic inactive gastritis C. Incisura, biopsy: -Oxyntic mucosa with no diagnostic alteration D. Stomach body greater curvature, biopsy: -Oxyntic mucosa with no diagnostic alteration E. Stomach, body lesser curvature, biopsy: -Oxyntic mucosa with no diagnostic alteration Helicobacter pylori stain was obtained and is negative 02/05/24 SURGICAL PATHOLOGY: [id number] negative for H pylori and for lymphoma FINAL DIAGNOSIS A. Stomach, antrum, lesser curve, biopsy: - Antral mucosa with reactive gastropathy. - No morphologic evidence of Helicobacter. B. Stomach, antrum, greater curve, biopsy: - Antral mucosa with reactive gastropathy. - No morphologic evidence of Helicobacter. C. Stomach, body, greater curvature, biopsy: - Corpus mucosa with patchy chronic inactive gastritis. - No morphologic evidence of Helicobacter. D. Stomach, body, lesser curve, biopsy: - Corpus mucosa with patchy chronic inactive gastritis. - No morphologic evidence of Helicobacter. E. Stomach, incisura, biopsy: - Antral mucosa with chronic inactive gastritis. - No morphologic evidence of Helicobacter. F. Stomach, 'body adjacent to ulcer,' biopsy: - Antral mucosa with reactive changes. - No morphologic evidence of Helicobacter. Diagnosis Comment A-F. 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 There is no morphologic evidence of lymphoma in these biopsies. F. A gastrin stain is positive, confirming the presence of antral mucosa. A chromogranin stain highlights a normal distribution of endocrine cells within the antrum. An immunostain for Helicobacter is negative. 02/05/24 EGD: Impression: - Normal oropharynx. - No gross lesions in the upper third of the esophagus and in the middle third of the esophagus. - Z-line regular, 41 cm from the incisors. - Bilious gastric fluid. - Gastric mucosal atrophy. - Non-bleeding gastric ulcer with a clean ulcer base (Anthony Class III). Biopsied. - No gross lesions in the duodenal bulb, in the first portion of the duodenum and in the second portion of the duodenum. - Gastroesophageal flap valve classified as Hill Grade I (prominent fold, tight to endoscope). - Five biopsies were obtained on the greater curvature of the gastric body, on the lesser curvature of the gastric body, at the incisura, on the greater curvature of the gastric antrum and on the lesser curvature of the gastric antrum. 02/05/24 Diagnosis Comment A-F. 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 There is no morphologic evidence of lymphoma in these biopsies. F. A gastrin stain is positive, confirming the presence of antral mucosa. A chromogranin stain highlights a normal distribution of endocrine cells within the antrum. An immunostain for Helicobacter is negative. 08/12/24 Diagnosis Comment There is no morphologic evidence of Helicobacter pylori organisms. The findings overall are most consistent with complete histologic remission according to the RADHA histological criteria. 03/24/22 11/18/22 05/21/24 08/29/24 Component -- -- 8.29 High 7.83 High PSA, TOTAL 4.11 High 5.27 High -- -- PSA Imaging Studies: 03/30/23 PET: HEAD/NECK: * No FDG avid neoplastic process. CHEST: * No FDG avid neoplastic process. ABDOMEN/PELVIS: * No FDG avid neoplastic process. Specifically, no FDG avid gastric abnormality is apparent. MUSCULOSKELETAL: * No FDG avid neoplastic process. 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 Interphase fluorescence in situ hybridization (FISH) was negative for a rearrangement involving the MALT1 gene (18q21.32). 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 An immunostain for Helicobacter is negative. He has new diagnosis of prostate cancer under active surveillance with Dr. Busby (urology) at . 11/14/23 Prostatic adenocarcinoma, Milford score 3+3=6, Grade Group 1 in 3/12 biopsies Recurrent LUQ pain for > 1 year, every few weeks, last 15 minutes, improved with stretching, up to 5-7/10 pain. Plan: Cardiology applying Ziopatch MPA, UMPA, SPEP, UPEP, kappa/lambda now and 6 months Restage at 6 month with endoscopy/biopsy, for H. pylori/lymphoma after antibiotics Cardiology Dr. Hollis EGD with biopsy-negative for NHL on 07/24/[address] Rivera UpToDate: We typically perform endoscopy with biopsies every three months until a histologic complete response (CR) is attained, and then perform endoscopy every six months for at least the first two years and then suggest endoscopy every 18 months and as clinically indicated. Surveillance can stop in asymptomatic patients once two sequential endoscopies show no abnormalities on biopsy. Surveillance endoscopy evaluates for recurrence and for gastric adenocarcinoma; surveillance is especially important for those with persistent chronic gastritis that may have components of gastric atrophy or gastric/intestinal metaplasia. 6 month OV after endoscopy; if negative in 02/13 (2 years) he can stop EGD. CT cap prior to return b/o LUQ pain. Braydon Tellez M.D. (Elements copied from my previous note, have been reviewed and updated where appropriate, and all reflect current assessment and medical decision making from today's encounter.) Medical Decision Making: Problems: Moderate: 2+ stable chronic illnesses Data: Unique test result(s) reviewed: 3+ Unique test(s) ordered: 3+ Risk: Low: Low risk from testing/treatment Moderate: Moderate risk from testing/treatment Medical Decision Making Level: 4 - Moderate Cc: No ref. provider found Jerel Bennett APRN.RAGINI RAJPUT, BREANNA MATTHEW, EMELYN SAAVEDRA documented in this encounter [facility] 09-06-2024 Note HNO ID: [id number] Author: BRAYDON TELLEZ MD Service: ? Author Type: Physician Type: Progress Notes Filed: 09/06/2024 09:54 Note Text: HEMATOLOGY/ONCOLOGY Jennifer Tidwell returns for a follow up EGD/colon performed 02/17/[address] Rivera who ordered Treatment for H pylori 02/24/23: bismuth subsalicylate 262 mg po qid; doxycycline hyclate 100 mg po bid; metronidazole 250 mg po qid; pantoprazole 40 mg po bid. The patient did not take bismuth subsalicylate (only a few doses b/o he is diabetic); therefore he then took Clarithromycin triple therapy 03/07/23. Cardiology referral for atrial fibrillation noted during the procedure. He states he has new diagnosis of prostate cancer Carlos 3+3 in October 2023, Dr. Busby (). He is on surveillance. Interim history: Denies bleeding, CP, abdominal pain, headaches, fevers, night sweats or unwanted weight loss. No nausea, vomiting, diarrhea or GI bleed. PMHx, PSHX, FHx and ROS are documented in Epic. All of these were reviewed and verified with patient. Review Of Systems: All systems reviewed with pertinent positives and negatives as outlined in the HPI. Physical Examination: On exam, he appears to be comfortable, in no acute distress. Vitals: see above. Alert and oriented x3. Heart with regular rhythm. No enlarged lymphadenopathy. Abdomen is soft. No hepatosplenomegaly. Lower extremities: No edema. Neuro exam: Nonfocal Labs: 09/02/24 MPA: IgG kappa; UMPA: negative; Latest Reference Range AND Units 03/07/23 11:32 07/06/23 12:05 09/02/24 09:04 M-Protein Concentration <=0.00 g/dL 0.42 (H) 0.37 (H) 0.43 (H) Latest Reference Range AND Units 02/16/24 11:21 09/02/24 09:04 WBC 3.70 - 11.00 k/uL 6.63 5.82 RBC 4.20 - 6.00 m/uL 4.79 4.69 Hemoglobin 13.0 - 17.0 g/dL 14.3 13.7 Hematocrit 39.0 - 51.0 % 42.5 41.9 Platelet Count 150 - 400 k/uL 164 139 (L) MCV 80.0 - 100.0 fL 88.7 89.3 MCH 26.0 - 34.0 pg 29.9 29.2 MCHC 30.5 - 36.0 g/dL 33.6 32.7 MPV 9.0 - 12.7 fL 9.4 9.4 RDW-CV 11.5 - 15.0 % 12.8 12.5 DTYPE Auto Auto Neut% % 62.1 63.1 Abs Neut (ANC) 1.45 - 7.50 k/uL 4.12 3.67 Lymph% % 26.2 24.7 Abs Lymph 1.00 - 4.00 k/uL 1.74 1.44 Rhea% % 8.9 8.6 Abs Rhea <0.87 k/uL 0.59 0.50 Eosin% % 1.7 1.9 Abs Eosin <0.46 k/uL 0.11 0.11 Baso% % 0.5 0.7 Abs Baso <0.11 k/uL 0.03 0.04 Latest Reference Range AND Units 02/16/24 11:21 09/02/24 09:04 Sodium 136 - 144 mmol/L 138 140 Potassium 3.7 - 5.1 mmol/L 4.5 4.7 Chloride 98 - 107 mmol/L 105 106 CO2 22 - 30 mmol/L 30 30 BUN 9 - 24 mg/dL 27 (H) 22 Creatinine 0.73 - 1.22 mg/dL 1.00 0.96 Glucose 74 - 99 mg/dL 121 (H) 124 (H) Protein, Total 6.3 - 8.0 g/dL 6.3 - 8.0 g/dL 7.1 6.5 7.0 Calcium 8.5 - 10.2 mg/dL 9.7 9.7 Albumin 3.9 - 4.9 g/dL 4.4 4.3 Bilirubin, Total 0.2 - 1.3 mg/dL 0.7 0.6 Alkaline Phosphatase 38 - 113 U/L 59 56 ALT 10 - 54 U/L 43 16 AST 14 - 40 U/L 27 14 Anion Gap 8 - 15 mmol/L 3 (L) 4 (L) eGFR >=60 mL/min/1.73m? 79 83 03/15/23 Bone marrow, aspirate, touch imprint, clot section and core biopsy: - Normocellular marrow (30%) with trilineage hematopoiesis. - Adequate megakaryocytes. - Stainable iron present without ring sideroblasts. - Plasma cell hyperplasia with slightly increased kappa:lambda ratio (see comment). - No evidence of marrow involvement by lymphoma (see comment). There is no evidence of involvement by a lymphoproliferative disorder or abnormal blast population. Correlation with the clinical and bone marrow histopathologic findings is suggested. 02/17/23 A. 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 - Gastric antral mucosa with chronic active gastritis. - Positive for H. pylori microorganisms (morphologically confirmed on ANDREY sections). Interphase fluorescence in situ hybridization (FISH) was negative for a rearrangement involving the MALT1 gene (18q21.32). Diagnosis Comment ANDREY-stained sections in part A reveal gastric antral mucosa with chronic active gastritis and a diffuse vaguely nodular lymphoid infiltrate composed of small mature lymphocytes with abundant cytoplasm, slightly irregular nuclear contours, and intermixed plasma cells. Multifocally, these lymphocytes are infiltrating mucus glands, compatible with lymphoepithelial lesions. H. pylori organisms are also identified on the ANDREY section. Immunohistochemical stains were performed at [facility] on block A1. A significant majority (80%) of the lymphocytes are atypical B cells, positive for CD20 and CD43. CD3 and CD5 highlight far fewer, scattered background T lymphocytes. FISH testing for a MALT1 rearrangement Addendum Interphase fluorescence in situ hybridization (FISH) was negative for a rearrangement involving the MALT1 gene (18q21.32). 02/17/23 EGD: Impression: - Normal hypopharynx. - No gross lesions in the upp (more content not included)... [facility] 09-05-2024 History of Present illness Narrative HPI 73 y.o. 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 Family history includes father [...] was obtained instead. 03/31/22 - seen over [facility]. in [place] currently ExoDx 03/2021 PSA history 03/2022 - 4.1 12/2021 - 7.03 (11% free) 10/2021 - 5.96 01/05/2023 - seen today via thv for a psa check. Doing well. 07/19/23 - seen over th to review 6mo PSA. 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 Also now with afib. 09/07/23 - seen back over [facility] to discuss recent PSA. No blood thinners; afib was worked up with a Holter monitor, echo and no anticoagulation recommended. 10/18/23 -here for biopsy. Risks, effects, alternatives discussed. He did receive IM ceftriaxone. Bx aborted 03/24 patient discomfort 11/14/23 - TP prostate bx in OR with Dr. Gale. Path - Gl 6 L posterior base (5% of specimen), L paramedian base (50% of specimen), L paramedian apex (5% of specimen) 12/07/23 -here to discuss pathology. Did well with biopsy. 06/06/24 - Doing well overall. Here to review PSA. 09/05/24 - Seen today over telehealth, performed this visit using real-time telehealth tools, including an audio/video connection between Jennifer Tidewll at home and Yusuf Busby MD at [facility]. Consent for telemedicine visit was obtained. Doing well overall. Here to review PSA. Path reviewed at [facility], upgrade to Gl 3+4, tumor was 30% of specimen, pattern 4 under 5% PSA 03/2024 - 7.9 Lab Results Component Value Date PSA 7.83 (H) 08/29/2024 PSA 8.29 (H) 05/21/2024 PSA 6.57 (H) 09/05/2023 PSA 6.17 (H) 07/18/2023 PSA 5.27 (H) 11/18/2022 Current Medications: Current Medications[1] Active Problems: Jennifer Tidwell is a 73 y.o. male with the following Problems and Medications. Problem List[2] Current Medications[3] PMH: Medical History[4] PSH: Surgical History[5] FMH: Family History[6] SHx: Social History[7] Allergies: RX Allergies[8] Assessment/Plan PSA came back down slightly, again has been fluctuating. I recommend MRI, possibly with Valium if he is able to do it. We discussed his path reviewed at [facility], upgraded to Gl 3+4 under 5% pattern 4. Technically upgraded, but very minimal pattern 4. FU in 6 weeks with MRI prior. Scribe Attestation By signing my name below, I, Vince Espinosa, attest that this documentation has been prepared under the direction and in the presence of Yusuf Busby MD. [1] Current Outpatient Medications Medication Sig Dispense Refill APPLE CIDER VINEGAR ORAL Take by mouth. ascorbic acid (Vitamin C) 1,000 mg tablet Take 1 tablet (1,000 mg) by mouth once daily. diazePAM (Valium) 5 mg tablet Take 1 tablet (5 mg) by mouth 1 time if needed for anxiety for up to 1 dose. 30 mins prior to MRI 1 tablet 0 docosahexaenoic acid/epa (FISH OIL ORAL) Take by mouth. levothyroxine (Synthroid, Levoxyl) 50 mcg tablet Take 1 tablet (50 mcg) by mouth early in the morning.. Take on an empty stomach at the same time each day, either 30 to 60 minutes prior to breakfast sildenafil (Viagra) 100 mg tablet Take 1 tablet (100 mg) by mouth once daily. 1 HOUR BEFORE NEEDED TURMERIC ORAL Take by mouth. vitamin E 450 mg (1000 unit) capsule Take 100 Units by mouth once daily. No current facility-administered medications for this visit. [2] Patient Active Problem List Diagnosis Diabetes 1.5, managed as type 2 (Multi) Elevated PSA Erectile dysfunction Hypothyroidism [3] Current Outpatient Medications Medication Sig Dispense Refill APPLE CIDER VINEGAR ORAL Take by mouth. ascorbic acid (Vitamin C) 1,000 mg tablet Take 1 tablet (1,000 mg) by mouth once daily. diazePAM (Valium) 5 mg tablet Take 1 tablet (5 mg) by mouth 1 time if needed for anxiety for up to 1 dose. 30 mins prior to MRI 1 tablet 0 docosahexaenoic acid/epa (FISH OIL ORAL) Take by mouth. levothyroxine (Synthroid, Levoxyl) 50 mcg tablet Take 1 tablet (50 mcg) by mouth early in the morning.. Take on an empty stomach at the same time each day, either 30 to 60 minutes prior to breakfast sildenafil (Viagra) 100 mg tablet Take 1 tablet (100 mg) by mouth once daily. 1 HOUR BEFORE NEEDED TURMERIC ORAL Take by mouth. vitamin E 450 mg (1000 unit) capsule Take 100 Units by mouth once daily. No current facility-administered medications for this visit. [4] Past Medical History: Diagnosis Date Atrial fib/flutter, transient (Multi) DM (diabetes mellitus) (Multi) Elevated PSA November 2021 Hypothyroidism Kidney stone October 2008 Lymphoma Prostate cancer (Multi) November 2023 Sleep apnea November 2008 [5] Past Surgical History: Procedure Laterality Date CARPAL TUNNEL RELEASE Bilateral CATARACT EXTRACTION Bilateral COLONOSCOPY ELBOW Right ESOPHAGOGASTRODUODENOSCOPY KIDNEY STONE SURGERY October 2008 KNEE Left x4 KNEE Right x3 LITHOTRIPSY August 1999 ROTATOR CUFF REPAIR Left VASECTOMY [6] Family History Problem Relation Name Age of Onset Cancer Father Vince Tidwell Hypertension Father Vince Tidwell Hypertension Father Vince Tidwell [7] Social History Tobacco Use Smoking status: Never Smokeless tobacco: Never Substance Use Topics Alcohol use: Yes Alcohol/week: 2.0 standard drinks of alcohol Types: 2 Cans of beer per week Comment: Social drinker Drug use: Never [8] Allergies Allergen Reactions Hydrocodone Anxiety Oxycodone-Acetaminophen Anxiety Tramadol Anxiety documented in this encounter [facility] Work Phone: 08-12-2024 Nurse Note AMBULATORY PATIENT EDUCATION NOTE TOPIC: GI PROCEDURES: Esophagogastroduodenoscopy(EGD) with or without biopies based on clinical findings, removal of polyps or lesions READINESS TO LEARN INSTRUCTION PROVIDED TO: Patient and family member COGNITIVE ABILITY: Alert and oriented PTED MOTIVATION TO LEARN: Interested FAMILY SUPPORT: High - Very involved in pt care IPATIENT LEARNS BEST BY: Individual Instruction Written Instruction - Hand-outs Verbal Instruction FACTORS AFFECTING LEARNING: None PHYSICAL LIMITATIONS AFFECTING LEARNING: None LEARNING RESPONSE METHOD OF INSTRUCTION: Individual instruction PATIENT / FAMILY RESPONSE: Verbalizes understanding of: WORSENING CONDITION-Signs and symptoms of a worsening condition that warrant a call to the physician FOLLOW-UP PLAN: Patient instructed to call with any further issues Recommend - Recommend continued instruction and follow up as directed Contact information given. SUPPLEMENTAL MATERIAL: Procedure Discharge Instructions REFERRAL (RECOMMENDATION): None Electronically Signed By: Samantha Vargas RN [facility] 08-12-2024 Nurse Note AMBULATORY PATIENT EDUCATION NOTE TOPIC: GI PROCEDURES: Esophagogastroduodenoscopy(EGD) with or without biopies based on clinical findings, removal of polyps or lesions READINESS TO LEARN INSTRUCTION PROVIDED TO: Patient and family member COGNITIVE ABILITY: Alert and oriented PTED MOTIVATION TO LEARN: Interested FAMILY SUPPORT: High - Very involved in pt care IPATIENT LEARNS BEST BY: Individual Instruction Written Instruction - Hand-outs Verbal Instruction FACTORS AFFECTING LEARNING: None PHYSICAL LIMITATIONS AFFECTING LEARNING: None LEARNING RESPONSE METHOD OF INSTRUCTION: Individual instruction PATIENT / FAMILY RESPONSE: Verbalizes understanding of: WORSENING CONDITION-Signs and symptoms of a worsening condition that warrant a call to the physician FOLLOW-UP PLAN: Patient instructed to call with any further issues Recommend - Recommend continued instruction and follow up as directed Contact information given. SUPPLEMENTAL MATERIAL: Procedure Discharge Instructions REFERRAL (RECOMMENDATION): None Electronically Signed By: Samantha Vargas RN PRE OP LEARNING ASSESSMENT PROCEDURE/SURGERY: GI PROCEDURES: EGD READINESS TO LEARN COGNITIVE ABILITY: Alert and oriented MOTIVATION TO LEARN: Eager Interested FAMILY SUPPORT: High - Very involved in pt care PATIENT LEARNS BEST BY: Individual Instruction Written Instruction - Hand-outs Verbal Instruction FACTORS AFFECTING LEARNING: None PHYSICAL LIMITATIONS AFFECTING LEARNING: None Electronically Signed By: SARITA Sauceda RN In Department: GASTROENTEROLOGY documented in this encounter [facility] 08-12-2024 Note Q3 Patient Name: Jennifer Tidwell Procedure Date: 08/12/2024 12:28 PM Date of : 1950 Admit Type: Outpatient Age: 73 Gender: Male Note Status: Finalized Attending MD: Erin Rivera , , [id number] Procedure: Upper GI endoscopy Indications: Follow-up of MALT lymphoma due to H. pylori Providers: Erin Rivera Patient Profile: This is a 73 year old male. Refer to note in patient chart for documentation of history and physical. Referring Physician: Braydon Tellez (Referring MD) Medicines: Monitored Anesthesia Care Complications: No immediate complications. Requesting Provider: Procedure: Pre-Anesthesia Assessment: - Prior to the procedure, a History and Physical was performed, and patient medications and allergies were reviewed. The patient is competent. The risks and benefits of the procedure and the sedation options and risks were discussed with the patient. All questions were answered and informed consent was obtained. Patient identification and proposed procedure were verified by the physician, the nurse and the welding robot operator in the pre-procedure area in the endoscopy suite. Mental Status Examination: alert and oriented. Airway Examination: normal oropharyngeal airway and neck mobility. Respiratory Examination: clear to auscultation. CV Examination: normal. Prophylactic Antibiotics: The patient does not require prophylactic antibiotics. Prior Anticoagulants: The patient has taken no anticoagulant or antiplatelet agents. After reviewing the risks and benefits, the patient was deemed in satisfactory condition to undergo the procedure. The anesthesia plan was to use monitored anesthesia care (MAC). Immediately prior to administration of medications, the patient was re-assessed for adequacy to receive sedatives. The heart rate, respiratory rate, oxygen saturations, blood pressure, adequacy of pulmonary ventilation, and response to care were monitored throughout the procedure. The physical status of the patient was re-assessed after the procedure. After obtaining informed consent, the endoscope was passed under direct vision. Throughout the procedure, the patient's blood pressure, pulse, and oxygen saturations were monitored continuously. The Endoscope was introduced through the mouth, and advanced to the second part of duodenum. The upper GI endoscopy was accomplished without difficulty. The patient tolerated the procedure well. Moderate Sedation: MAC anesthesia was administered by the anesthesia team. Findings: The hypopharynx was normal. The Z-line was regular and was found 40 cm from the incisors. Diffuse moderately congested mucosa was found in the entire examined stomach. Diffuse moderately erythematous mucosa without bleeding was found in the entire examined stomach. Five biopsies were obtained with cold forceps for histology Jocelynn protocol for mappring, given history of MALT lympoma on the greater curvature of the gastric body, on the lesser curvature of the gastric body, at the incisura, on the greater curvature of the gastric antrum and on the lesser curvature of the gastric antrum. Diffuse mildly congested mucosa without active bleeding and with no stigmata of bleeding was found in the duodenal bulb, in the first portion of the duodenum and in the second portion of the duodenum. The gastroesophageal flap valve was visualized endoscopically and classified as Hill Grade I (prominent fold, tight to endoscope). Impression: - Normal hypopharynx. - Z-line regular, 40 cm from the incisors. - Congestive gastropathy. - Erythematous mucosa in the stomach. - Congested duodenal mucosa. - Gastroesophageal flap valve classified as Hill Grade I (prominent fold, tight to endoscope). - Five biopsies were obtained (more content not included)... [facility] 08-12-2024 History and physical note ENDOSCOPY HISTORY AND PHYSICAL EXAM Jennifer Fenton Yaw [id number] Subjective HPI: This is a 72 year old male who presents for endoscopy. He has a history of hypertension, diabetes and sleep apnea. He was evaluated outpatient gastroenterology clinic in fall 2022 for a complaint of burning/coughing sensation in his throat with coffee or other triggers but without dysphagia or odynophagia. An EGD in 01/2023 demonstrated H pylori infection and mild MALT lymphoma. He was treated for MALT lymphoma. He has had surveillance EGD in 07/2023, and 01/2024. He returns for surveillance EGD PAST ANESTHESIA HISTORY: stomach cramps with fentanyl PAST MEDICAL HISTORY Diagnosis Date Allergic rhinitis 10/18/2010 Atrial fibrillation (HCC) Diabetes mellitus type 2 (HCC) 02/20/2014 HTN (hypertension) 10/18/2010 Hyperlipidemia MALT lymphoma (HCC) Gastric Migraine with visual aura 05/16/2012 Obstructive sleep apnea Cannot tolerate CPAP Renal stone 02/21/2008 PAST SURGICAL HISTORY Procedure Laterality Date EGD EXERCISE STRESS TEST WITH NUCLEAR IMAGES PANEL 02/20/2013 abnormal execise stress NUCLEAR EXERCISE STRESS TEST 02/20/2013 normal PAST SURGICAL HISTORY OF 2 arthroscopies of the L knee, and open surgeries for intrinsic derangement PAST SURGICAL HISTORY OF removal of renal stone ( not sure of the method) PAST SURGICAL HISTORY OF fibula-tibiaotomy of the L PAST SURGICAL HISTORY OF right knee arthroscopy and reconstruction RECONSTRUCTION ROTATOR CUFF AVULSION CHRONIC 07/21/2010 left Prior to Admission medications as of 08/12/24 1218 Medication Sig Last Dose Taking cholecalciferol, vitD3,/vit K2 (VITAMIN D3-VITAMIN K2 ORAL) Take by mouth. ascorbic acid (VITAMIN C ORAL) Take by mouth. C/sourcherry/celery/grape seed (TART ACOSTA ORAL) Take by mouth. BLUEBERRY APPLE CIDER VINEGAR ORAL Take by mouth. VITAMIN B COMPLEX ORAL Take by mouth. levothyroxine (SYNTHROID) 50 mcg tablet Take 50 mcg by mouth once daily. OTC NUTRITIONAL SUPPLEMENT once daily. QC Turmeric Apolic Acid Bererdine with Cylon Cinnamon Zinc MCT Oil ALLERGIES Allergen Reactions Percocet [Oxycodone* Intolerance Ultram [Tramadol Hc* Intolerance Vicodin [Hydrocodon* Other: See Comments Objective PHYSICAL EXAM: The remainder of the physical exam is noncontributory. AIRWAY: LUNGS: Lungs clear to auscultation CARDIAC: Regular rhythm,Regular rate Assessment/Plan ASA Class: Active Problems: * No active hospital problems. * Resolved Problems: * No resolved hospital problems. * Medication and Non-Pharmacologic VTE Prophylaxis/Anticoagulants VTE Prophylaxis: not indicated for procedure Provisional Diagnosis/Treatment Plan: EGD with biopsy Consent has been signed Sedation Goal: Anesthesia Erin Rivera MD 08/12/2024 12:30 PM [facility] 08-12-2024 History and physical note ENDOSCOPY HISTORY AND PHYSICAL EXAM Jennifer Tiwdell [id number] Subjective HPI: This is a 72 year old male who presents for endoscopy. He has a history of hypertension, diabetes and sleep apnea. He was evaluated outpatient gastroenterology clinic in fall 2022 for a complaint of burning/coughing sensation in his throat with coffee or other triggers but without dysphagia or odynophagia. An EGD in 01/2023 demonstrated H pylori infection and mild MALT lymphoma. He was treated for MALT lymphoma. He has had surveillance EGD in 07/2023, and 01/2024. He returns for surveillance EGD PAST ANESTHESIA HISTORY: stomach cramps with fentanyl PAST MEDICAL HISTORY Diagnosis Date Allergic rhinitis 10/18/2010 Atrial fibrillation (HCC) Diabetes mellitus type 2 (HCC) 02/20/2014 HTN (hypertension) 10/18/2010 Hyperlipidemia MALT lymphoma (HCC) Gastric Migraine with visual aura 05/16/2012 Obstructive sleep apnea Cannot tolerate CPAP Renal stone 02/21/2008 PAST SURGICAL HISTORY Procedure Laterality Date EGD EXERCISE STRESS TEST WITH NUCLEAR IMAGES PANEL 02/20/2013 abnormal execise stress NUCLEAR EXERCISE STRESS TEST 02/20/2013 normal PAST SURGICAL HISTORY OF 2 arthroscopies of the L knee, and open surgeries for intrinsic derangement PAST SURGICAL HISTORY OF removal of renal stone ( not sure of the method) PAST SURGICAL HISTORY OF fibula-tibiaotomy of the L PAST SURGICAL HISTORY OF right knee arthroscopy and reconstruction RECONSTRUCTION ROTATOR CUFF AVULSION CHRONIC 07/21/2010 left Prior to Admission medications as of 08/12/24 1218 Medication Sig Last Dose Taking cholecalciferol, vitD3,/vit K2 (VITAMIN D3-VITAMIN K2 ORAL) Take by mouth. ascorbic acid (VITAMIN C ORAL) Take by mouth. C/sourcherry/celery/grape seed (TART ACOSTA ORAL) Take by mouth. BLUEBERRY APPLE CIDER VINEGAR ORAL Take by mouth. VITAMIN B COMPLEX ORAL Take by mouth. levothyroxine (SYNTHROID) 50 mcg tablet Take 50 mcg by mouth once daily. OTC NUTRITIONAL SUPPLEMENT once daily. QC Turmeric Apolic Acid Bererdine with Cylon Cinnamon Zinc MCT Oil ALLERGIES Allergen Reactions Percocet [Oxycodone* Intolerance Ultram [Tramadol Hc* Intolerance Vicodin [Hydrocodon* Other: See Comments Objective PHYSICAL EXAM: The remainder of the physical exam is noncontributory. AIRWAY: LUNGS: Lungs clear to auscultation CARDIAC: Regular rhythm,Regular rate Assessment/Plan ASA Class: Active Problems: * No active hospital problems. * Resolved Problems: * No resolved hospital problems. * Medication and Non-Pharmacologic VTE Prophylaxis/Anticoagulants VTE Prophylaxis: not indicated for procedure Provisional Diagnosis/Treatment Plan: EGD with biopsy Consent has been signed Sedation Goal: Anesthesia Erin Rivera MD 08/12/2024 12:30 PM documented in this encounter [facility] 08-12-2024 Note Q3 Patient Name: Jennifer Tidwell Procedure Date: 08/12/2024 12:28 PM Date of : 1950 Admit Type: Outpatient Age: 73 Gender: Male Note Status: Finalized Attending MD: Erin Rivera , , [id number] Procedure: Upper GI endoscopy Indications: Follow-up of MALT lymphoma due to H. pylori Providers: Erin Rivera Patient Profile: This is a 73 year old male. Refer to note in patient chart for documentation of history and physical. Referring Physician: Braydon Tellez (Referring MD) Medicines: Monitored Anesthesia Care Complications: No immediate complications. Requesting Provider: Procedure: Pre-Anesthesia Assessment: - Prior to the procedure, a History and Physical was performed, and patient medications and allergies were reviewed. The patient is competent. The risks and benefits of the procedure and the sedation options and risks were discussed with the patient. All questions were answered and informed consent was obtained. Patient identification and proposed procedure were verified by the physician, the nurse and the welding robot operator in the pre-procedure area in the endoscopy suite. Mental Status Examination: alert and oriented. Airway Examination: normal oropharyngeal airway and neck mobility. Respiratory Examination: clear to auscultation. CV Examination: normal. Prophylactic Antibiotics: The patient does not require prophylactic antibiotics. Prior Anticoagulants: The patient has taken no anticoagulant or antiplatelet agents. After reviewing the risks and benefits, the patient was deemed in satisfactory condition to undergo the procedure. The anesthesia plan was to use monitored anesthesia care (MAC). Immediately prior to administration of medications, the patient was re-assessed for adequacy to receive sedatives. The heart rate, respiratory rate, oxygen saturations, blood pressure, adequacy of pulmonary ventilation, and response to care were monitored throughout the procedure. The physical status of the patient was re-assessed after the procedure. After obtaining informed consent, the endoscope was passed under direct vision. Throughout the procedure, the patient's blood pressure, pulse, and oxygen saturations were monitored continuously. The Endoscope was introduced through the mouth, and advanced to the second part of duodenum. The upper GI endoscopy was accomplished without difficulty. The patient tolerated the procedure well. Moderate Sedation: MAC anesthesia was administered by the anesthesia team. Findings: The hypopharynx was normal. The Z-line was regular and was found 40 cm from the incisors. Diffuse moderately congested mucosa was found in the entire examined stomach. Diffuse moderately erythematous mucosa without bleeding was found in the entire examined stomach. Five biopsies were obtained with cold forceps for histology Jocelynn protocol for mappring, given history of MALT lympoma on the greater curvature of the gastric body, on the lesser curvature of the gastric body, at the incisura, on the greater curvature of the gastric antrum and on the lesser curvature of the gastric antrum. Diffuse mildly congested mucosa without active bleeding and with no stigmata of bleeding was found in the duodenal bulb, in the first portion of the duodenum and in the second portion of the duodenum. The gastroesophageal flap valve was visualized endoscopically and classified as Hill Grade I (prominent fold, tight to endoscope). Impression: - Normal hypopharynx. - Z-line regular, 40 cm from the incisors. - Congestive gastropathy. - Erythematous mucosa in the stomach. - Congested duodenal mucosa. - Gastroesophageal flap valve classified as Hill Grade I (prominent fold, tight to endoscope). - Five biopsies were obtained on the greater curvature of the gastric body, on the lesser curvature of the gastric body, at the incisura, on the greater curvature of the gastric antrum and on the lesser curvature of the gastric antrum. Estimated Blood Loss: Estimated blood loss was minimal. Estimated blood loss was minimal. Recommendation: - Patient has a contact number available for emergencies. The signs and symptoms of potential delayed complications were discussed with the patient. Return to normal activities tomorrow. Written discharge instructions were provided to the patient. - Resume previous diet. - The patient is not currently taking anticoagulant or antiplatelet agents. - Await pathology results. - Discharge patient to home. Procedure Code(s): --- Professional --- 95169 Diagnosis Code(s): --- Professional --- K31.89 C88.40 B96.81 CPT copyright 2020 [employer]. All rights reserved. Attending Participation: I personally performed the entire procedure. Scope In: 12:45:34 PM Scope Out: 12:58:[address] Erin Rivera, 08/12/2024 1:03:29 PM This report has (more content not included)... [facility] 08-12-2024 Nurse Note PRE OP LEARNING ASSESSMENT PROCEDURE/SURGERY: GI PROCEDURES: EGD READINESS TO LEARN COGNITIVE ABILITY: Alert and oriented MOTIVATION TO LEARN: Eager Interested FAMILY SUPPORT: High - Very involved in pt care PATIENT LEARNS BEST BY: Individual Instruction Written Instruction - Hand-outs Verbal Instruction FACTORS AFFECTING LEARNING: None PHYSICAL LIMITATIONS AFFECTING LEARNING: None Electronically Signed By: SARITA Sauceda RN In Department: GASTROENTEROLOGY [facility] 08-05-2024 Nurse Note Attempted to reach the patient at the contact number that they provided [phone] (home) . Unable to speak with patient so without identifying the patient the following information was left on their voice mail: Date of procedure, location and report time A message was left informing the patient/patient senior sales representative they must have a responsible adult accompany them to their procedure; and remain in the endoscopy area until they are discharged. Failure to have a responsible adult accompany the patient to their procedure appointment prevents the use of sedation or anesthesia for their procedure; and can result in cancellation of the procedure NPO instructions were reviewed. Instructions to contact their primary care provider regarding their medications and which medications to stop in preparation for their procedure Instructions to completely read and follow the written instructions that they recieved regarding their procedure. Number to call with questions or concerns [phone] Number to call to cancel their procedure [phone] Vladimir Saravia RN [facility] 08-05-2024 Nurse Note Attempted to reach the patient at the contact number that they provided [phone] (home) . Unable to speak with patient so without identifying the patient the following information was left on their voice mail: Date of procedure, location and report time A message was left informing the patient/patient senior sales representative they must have a responsible adult accompany them to their procedure; and remain in the endoscopy area until they are discharged. Failure to have a responsible adult accompany the patient to their procedure appointment prevents the use of sedation or anesthesia for their procedure; and can result in cancellation of the procedure NPO instructions were reviewed. Instructions to contact their primary care provider regarding their medications and which medications to stop in preparation for their procedure Instructions to completely read and follow the written instructions that they recieved regarding their procedure. Number to call with questions or concerns [phone] Number to call to cancel their procedure [phone] Vladimir Saravia RN documented in this encounter [facility] 07-05-2024 History of Present illness Narrative Patient: Jennifer Tidwell Date: July 05, 2024 PCP: Jerel Bennett APRN.YARD CALLER LDOS: 11/21/2023 Subjective: Jennifer Tidwell is a 73 year old Type II DM male who presents with discolored, thickened, elongated toenails. He states the nails are causing pain and pressure in shoe gear, and is unable to safely manage these nails on their own. Patient also follows up for capsulitis and haskins neuroma right foot today. Patient states he has folllowed all home instructions however states the pain has slowly improved. Patient admits to regular care with his PCP and states his fasting blood glucose was unchecked this morning. Patient denies paresthesias in the bl feet. Patient also admits to some fasciculation and cramping in both lower extremities which has worsened since starting exercising; patient states this is more noticeable in the evenings. Patient admits to n/v/f/c/sob/cp/abdominal pain, and denies any other lower extremity complaints. Past Medical History: PAST MEDICAL HISTORY Diagnosis Date Allergic rhinitis 10/18/2010 Atrial fibrillation (HCC) Diabetes mellitus type 2 (HCC) 02/20/2014 HTN (hypertension) 10/18/2010 Hyperlipidemia MALT lymphoma Gastric Migraine with visual aura 05/16/2012 Obstructive sleep apnea Cannot tolerate CPAP Renal stone 02/21/2008 Past Surgical History: PAST SURGICAL HISTORY Procedure Laterality Date EGD EXERCISE STRESS TEST WITH NUCLEAR IMAGES PANEL 02/20/2013 abnormal execise stress NUCLEAR EXERCISE STRESS TEST 02/20/2013 normal PAST SURGICAL HISTORY OF 2 arthroscopies of the L knee, and open surgeries for intrinsic derangement PAST SURGICAL HISTORY OF removal of renal stone ( not sure of the method) PAST SURGICAL HISTORY OF fibula-tibiaotomy of the L PAST SURGICAL HISTORY OF right knee arthroscopy and reconstruction RECONSTRUCTION ROTATOR CUFF AVULSION CHRONIC 07/21/2010 left Allergies: Percocet [Oxycodone-Acetaminophen], Ultram [Tramadol Hcl], and Vicodin [Hydrocodone-Acetaminophen] Current Outpatient Medications Medication Sig cholecalciferol, vitD3,/vit K2 (VITAMIN D3-VITAMIN K2 ORAL) Take by mouth. ascorbic acid (VITAMIN C ORAL) Take by mouth. C/sourcherry/celery/grape seed (TART ACOSTA ORAL) Take by mouth. BLUEBERRY APPLE CIDER VINEGAR ORAL Take by mouth. VITAMIN B COMPLEX ORAL Take by mouth. levothyroxine (SYNTHROID) 50 mcg tablet Take 50 mcg by mouth once daily. OTC NUTRITIONAL SUPPLEMENT once daily. QC Turmeric Apolic Acid Bererdine with Cylon Cinnamon Zinc MCT Oil No current facility-administered medications for this visit. [...] C (98.6 F) Ht 175.3 cm (5' 9) Wt 70.3 kg (155 lb) BMI 22.89 kg/m BMI 22.89 kg/(m^2) DP and PT arteries palpable 1+/4+. [...] the foot and ankle is 5/5 bilateral. Mild pain on palpation with focal edema sub 3rd and 4th MPJ right foot. Minimal pain on palpation 3rd interspace between 3rd and 4th Metatarsals distally right foot. Ankle equinus deformity is moderate and noted to Both feet. Unable to dorsiflex the foot at the level of the ankle joint relative to the leg 10 degrees with knee straight. Unable to dorsiflex the foot at the level of the ankle joint relative to the leg 10 degrees with knee bent to 90 degrees. Toenails 1-5 bl are discolored, elongated, and thickened, and clinically consistent with onychomycosis. Subungual hematoma to the left hallux toenail with 6mm proximal clear growth noted and no onycholysis. Webspaces 1-4 bl are clean, dry, and intact. No interdigital maceration, no masses, no open lesions. XRAY RIGHT FOOT 10/03/2023 IMPRESSION: 1. 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 -patient educated on the possible etiology treatment of fasciculation after starting exercise program -start with stretching as instructed and follow the hand out daily -if no improvement start EBM M8 -if continues follow with PCP for further systemic evaluation -will monitor from podiatry standpoint -patient again educated on the etiology and treatment of neuroma and capsulitis -radiographs reviewed and no significant abnormalities noted -patient capsulitis and neuroma pain gradually improving -patient instructed to continue rest, ice, elevate PRN -defers EBM C4 topical broad spectrum CBD due to cost -patient defers injection at this time -continue stretching as instructed today for ankle equinus -patient to continue diabetic shoes with custom diabetic insoles with additional met pad added -patient WBAT -patient instructed not to go barefoot -Instructed to contact our office if any lower extremity problems develop before next visit Return in about 9 weeks (around 09/06/2024). Yusuf Dean DPM documented in this encounter [facility] 06-06-2024 History of Present illness Narrative HPI 73 y.o. 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 Family history includes father [...] was obtained instead. 03/31/22 - seen over [facility]. in [place] currently [facility] 03/2021 PSA history 03/2022 - 4.1 12/2021 - 7.03 (11% free) 10/2021 - 5.96 01/05/2023 - seen today via [facility]v for a psa check. Doing well. 07/19/23 - seen over th to review 6mo PSA. 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 Also now with afib. 09/07/23 - seen back over [facility] to discuss recent PSA. No blood thinners; afib was worked up with a Holter monitor, echo and no anticoagulation recommended. 10/18/23 -here for biopsy. Risks, effects, alternatives discussed. He did receive IM ceftriaxone. Bx aborted 03/24 patient discomfort 11/14/23 - TP prostate bx in OR with Dr. Gale. Path - Gl 6 L posterior base (5% of specimen), L paramedian base (50% of specimen), L paramedian apex (5% of specimen) 12/07/23 -here to discuss pathology. Did well with biopsy. 06/06/24 - Doing well overall. Here to review PSA PSA 03/2024 - 7.9 Lab Results Component Value Date PSA 8.29 (H) 05/21/2024 PSA 6.57 (H) 09/05/2023 PSA 6.17 (H) 07/18/2023 PSA 5.27 (H) 11/18/2022 PSA 4.11 (H) 03/24/2022 Current Medications: Current Outpatient Medications Medication Sig Dispense Refill APPLE CIDER VINEGAR ORAL Take by mouth. ascorbic acid (Vitamin C) 1,000 mg tablet Take 1 tablet (1,000 mg) by mouth once daily. docosahexaenoic acid/epa (FISH OIL ORAL) Take by mouth. levothyroxine (Synthroid, Levoxyl) 50 mcg tablet Take 1 tablet (50 mcg) by mouth early in the morning.. Take on an empty stomach at the same time each day, either 30 to 60 minutes prior to breakfast sildenafil (Viagra) 100 mg tablet Take 1 tablet (100 mg) by mouth once daily. 1 HOUR BEFORE NEEDED TURMERIC ORAL Take by mouth. vitamin E 450 mg (1000 unit) capsule Take 100 Units by mouth once daily. No current facility-administered medications for this visit. Active Problems: Jennifer Tidwell is a 73 y.o. male with the following Problems and Medications. Patient Active Problem List Diagnosis Diabetes 1.5, managed as type 2 (Multi) Elevated PSA Erectile dysfunction Hypothyroidism Current Outpatient Medications Medication Sig Dispense Refill APPLE CIDER VINEGAR ORAL Take by mouth. ascorbic acid (Vitamin C) 1,000 mg tablet Take 1 tablet (1,000 mg) by mouth once daily. docosahexaenoic acid/epa (FISH OIL ORAL) Take by mouth. levothyroxine (Synthroid, Levoxyl) 50 mcg tablet Take 1 tablet (50 mcg) by mouth early in the morning.. Take on an empty stomach at the same time each day, either 30 to 60 minutes prior to breakfast sildenafil (Viagra) 100 mg tablet Take 1 tablet (100 mg) by mouth once daily. 1 HOUR BEFORE NEEDED TURMERIC ORAL Take by mouth. vitamin E 450 mg (1000 unit) capsule Take 100 Units by mouth once daily. No current facility-administered medications for this visit. PMH: Past Medical History: Diagnosis Date Atrial fib/flutter, transient (Multi) DM (diabetes mellitus) (Multi) Hypothyroidism Lymphoma PSH: Past Surgical History: Procedure Laterality Date CARPAL TUNNEL RELEASE Bilateral CATARACT EXTRACTION Bilateral COLONOSCOPY ELBOW Right ESOPHAGOGASTRODUODENOSCOPY KNEE Left x4 KNEE Right x3 LITHOTRIPSY ROTATOR CUFF REPAIR Left FMH: No family history on file. SHx: Social History Tobacco Use Smoking status: Never Smokeless tobacco: Never Substance Use Topics Alcohol use: Not Currently Drug use: Never Allergies: Allergies Allergen Reactions Hydrocodone Anxiety Oxycodone-Acetaminophen Anxiety Tramadol Anxiety Assessment/Plan PSA continues to rise, has been fluctuating. Given low risk manager quality improvement on biopsy in 10/2023, I recommend re-checking PSA in 3 months. As per patient, he had his pathology reviewed at [facility], which showed Gl 3+4. Discussed will stick to the plan of action and continue with surveillance for now. If PSA continues to rise, will repeat MRI at that point. FU in 3 months over TH with PSA prior. Scribe Attestation By signing my name below, I, Chalino Crowder, Slavae, attest that this documentation has been prepared under the direction and in the presence of Yusuf Busby MD. documented in this encounter [facility] Work Phone: 06-03-2024 Evaluation note Diagnosis Onset Date Resolution Abnormal prostate biopsy acute June 03, 2024 3:15pm Hearing loss of right ear due to cerumen impaction acute June 03, 2024 3:15pm Diabetes type 2, uncontrolled acute August 21, 2024 3:11pm Elevated PSA acute August 21 3:11pm Hypothyroidism acute August 21, 2024 3:11pm [facility] Work Phone: 1(135) 759-377903-07-2025 History of Present illness Narrative* Yusuf Dean, ROMA - 04/26/2024 9:35 AM EST Patient: Jennifer Tidwell Date: April 26, 2024 PCP: Jerel Bennett APRN.YARD CALLER LDOS: 11/21/2023 Subjective: Jennifer Tidwell is a 73 year old Type II DM male who presents for diabetic foot exam andwith discolored, thickened, elongated toenails. He states the nails are causing pain and pressure in shoe gear, and is unable to safely manage these nails on their own. Patient also follows up for capsulitis and haskins neuroma right foot today. Patient states he has folllowed all home instructions however states the pain has slowly improved. Patient admits to regular care with his PCP and states his fasting blood glucose was 101mg/dL this morning. Patient denies paresthesias in the bl feet. Patient admits to n/v/f/c/sob/cp/abdominal pain, and denies any other lower extremity complaints. Past Medical History: PAST MEDICAL HISTORY Diagnosis Date Allergic rhinitis 10/18/2010 Atrial fibrillation (HCC) Diabetes mellitus type 2 (HCC) 02/20/2014 HTN (hypertension) 10/18/2010 Hyperlipidemia MALT lymphoma Gastric Migraine with visual aura 05/16/2012 Obstructive sleep apnea Cannot tolerate CPAP Renal stone 02/21/2008 Past Surgical History: PAST SURGICAL HISTORY Procedure Laterality Date EGD EXERCISE STRESS TEST WITH NUCLEAR IMAGES PANEL 02/20/2013 abnormal execise stress NUCLEAR EXERCISE STRESS TEST 02/20/2013 normal PAST SURGICAL HISTORY OF 2 arthroscopies of the L knee, and open surgeries for intrinsic derangement PAST SURGICAL HISTORY OF removal of renal stone ( not sure of the method) PAST SURGICAL HISTORY OF fibula-tibiaotomy of the L PAST SURGICAL HISTORY OF right knee arthroscopy and reconstruction RECONSTRUCTION ROTATOR CUFF AVULSION CHRONIC 07/21/2010 left Allergies: Percocet [Oxycodone-Acetaminophen], Ultram [Tramadol Hcl], and Vicodin [Hydrocodone-Acetaminophen] Current Outpatient Medications Medication Sig cholecalciferol, vitD3,/vit K2 (VITAMIN D3-VITAMIN K2 ORAL) Take by mouth. ascorbic acid (VITAMIN C ORAL) Take by mouth. C/sourcherry/celery/grape seed (TART ACOSTA ORAL) Take by mouth. BLUEBERRY APPLE CIDER VINEGAR ORAL Take by mouth. VITAMIN B COMPLEX ORAL Take by mouth. levothyroxine (SYNTHROID) 50 mcg tablet Take 50 mcg by mouth once daily. OTC NUTRITIONAL SUPPLEMENT once daily. QC Turmeric Apolic Acid Bererdine with Cylon Cinnamon Zinc MCT Oil No current facility-administered medications for this visit. [...] weakness and headaches. Objective: Physical Exam Temp 36.6 C (97.9 F) Ht 175.3 cm (5' 9) Wt 70.3 kg (155 lb) BMI 22.89 kg/m BMI 22.89 kg/(m^2) DP and PT arteries palpable 1+/4+. [...] the foot and ankle is 5/5 bilateral. Mild pain on palpation with focal edema sub 3rd and 4th MPJ right foot. Minimal pain on palpation 3rd interspace between 3rd and 4th Metatarsals distally right foot. Ankle equinus deformity is moderate and noted to Both feet. Unable to dorsiflex the foot at the level of the ankle joint relative to the leg 10 degrees with knee straight. Unable to dorsiflex the foot at the level of the ankle joint relative to the leg 10 degrees with knee bent to 90 degrees. Toenails 1-5 bl are discolored, elongated, and thickened, and clinically consistent with onychomycosis. Subungual hematoma to the left hallux toenail with 2mm proximal clear growth noted and no onycholysis. Webspaces 1-4 bl are clean, dry, and intact. No interdigital maceration, no masses, no open lesions. XRAY RIGHT FOOT 10/03/2023 IMPRESSION: 1. 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 All findings and treatment recommendations were reviewed with the patient and family member/health care facility administrator (if present). Adetailed history and examination was obtained. I reviewed all pertinent Lab results, Diagnostic & imaging results, Other practitioners charts, and took into consideration Labs or diagnostics thatneed to be performed. Reviewed the extensive management options for diagnosis or treatment of the above conditions. -patient educated of the etiology of nail [...] occur. Patient is to continue with daily lowerextremity inspections and tight blood glucose control. -Patient instructed to use OTC lotion to bl lower extremities daily for xerosis management, and avoid application to webspace's -Patient instructed not to go barefoot and to wear good supportive shoe gear. -patient educated on the etiology and treatment of subungual hematoma -no treatment at this time and resolving on its own -will monitor -patient again educated on the etiology and treatment of neuroma and capsulitis -radiographs reviewed and no significant abnormalities noted -patient capsulitis and neuroma pain gradually improving -patient instructed to continue rest, ice, elevate PRN -defers EBM C4 topical broad spectrum CBD due to cost -patient defers injection at this time -continue stretching as instructed today for ankle equinus -patient to continue diabetic shoes with custom diabetic insoles with additional met pad added -patient WBAT -patient instructed not to go barefoot -Instructed to contact our office if any lower extremity problems develop before next visit Return in about 9 weeks (around 06/28/2024). Yusuf Dean DPM documented in this encounterGrand [facility] History of Present illness Narrative* Laury Monge APRN-YARD CALLER - 04/08/2024 1:30 PM EST HPI 73 y.o. male presents for a second opinion of his recently diagnosed prostate cancer. Hx elevated PSA since 05/2022. No MRI d/t claustrophobia. ExoDx 03/2023 = 24 (>15.6 = higher risk of HG CaP). PSA 6.57 on 09/05/2023. Biopsy attempted in the office with Dr. Busby but he could not tolerate. He underwent prostate biopsy 11/14/[address] Russell Gale on the OR (transperineal) and pathology showed Milford 3+3=6 in 3 of 12 cores, (5- 50%). Dr. Busby recommended . Plans for PSA/visit in 6 months. He would like to go to the OR for any subsequent biopsies. [facility] path review: in process. Denies LUTS, GH, UTI, dysuria, pain or unintentional weight loss. Erections: moderate confidence in erections. No concerns. +hx stones 2008 - required LL. Hx MALT lymphoma dx 01/2023. He underwent a bone marrow biopsy on 03/15/23 which demonstrated no evidence of lymphomatous involvement and has undergone PET on 03/29/2023: no mets. EGD 02/15/2024: no evidence of lymphoma. Next visit in [address] Tolbert (cardio) 01/2023 - annual visits - Afib noted during colonoscopy. This was evaluated with holter monitor. He does not take oral anticoagulation. Family history of prostate cancer: father, dx at age 80's and treated with ADT. He presents today with his significant other. 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 -Prior Abdominal Surgery: no -Anticoagulation: no -History of Bleeding with Prior Surgery: no -History of Glaucoma: no IPSS: International Prostate Symptom Score (I-PSS) Incomplete emptying: Not at all Frequency: Not at all Intermittency: Not at all Urgency: Not at all Weak stream: Not at all Straining: Not at all Nocturia: 1 time Total AUA score: 1 Quality of life due to urinary symptoms Rate current urinary condition: Pleased, ROMAIN: ROMAIN Survey Confidence to get and keep an erection?: Moderate Sexual stimulation - how often erections hard enough for penetration?: Most times (much more than half the time) How often maintain erection after penetration?: Most times (much more than half the time) Difficulty to maintain erection to intercourse completion?: Slightly difficult Leary satisfactory for you?: Most times (much more than half the time) Total ROMAIN score: 19 Past Medical History: He has a past medical history of Arthritis, Atrial fib/flutter, transient, DM2 (diabetes mellitus, type 2), HTN (hypertension), Hyperlipidemia, Hypothyroidism (11/2011), Lymphoma, and Prostate cancer. Past Surgical History: He has a past surgical history that includes arthroscopy knee (Right); acl reconstruction (Right); osteotomy fibula tibia (Left); release carpal tunnel (Bilateral); rotator cuff repair (Left); and lithotripsy. Medications: He has a current medication list which includes the following prescription(s): levothyroxine. Allergies: He is allergic to hydrocodone-guaifenesin, kdc:ci pigment blue 63+acetaminophen+oxycodone, hydrocodone-acetaminophen, oxycodone-acetaminophen, and tramadol. Social History He reports that he quit smoking about 54 years ago. His smoking use included cigarettes. He startedsmoking about 55 years ago. He has a 0.5 pack-year smoking history. He has never used smokeless tobacco. He reports current alcohol use of about 3.0 standard drinks of alcohol per week. He reports that he does not use drugs. Family History: He family history includes Diabetes in his brother, father, and sister; Hypertension in his father;Leukemia (age of onset: 52) in his mother; Prostate Cancer (age of onset: 83) in his father. Review of Systems Constitutional: Negative for fever, chills Cardiovascular: Negative for chest pain. Respiratory: Negative for shortness of breath. Gastrointestinal: Negative for nausea, abdominal pain Genitourinary: see HPI Musculoskeletal: Negative for back pain and joint pain. Physical Exam BP 121/68 (BP Location: Right arm, BP Position: Sitting) Pulse 75 Resp 18 Ht 1.753 m (5' 9) Wt 67.8 kg (149 lb 6.4 oz) SpO2 97% BMI 22.06 kg/m Smoking Status Former Constitutional: NAD, WDWN. Pulmonary/Chest: Respirations are even and non-labored bilaterally. Diagnostic Tests Lab Results Component Value Date GLUCOSE 116 (H) 08/16/2023 Lab Results Component Value Date CREATSERUM 0.98 08/16/2023 CREATSERUM 0.98 05/31/2023 No results found for: PSA PSA @ OSH 6.57 09/05/2023 6.17 07/18/2023 5.27 11/18/2022 4.11 03/24/2022 Radiographic Studies: 11/14/2023 (PSA 6.57): [place] 3+3=6 in 3 of 12 cores, (5-50%) A. PROSTATE, NEEDLE BIOPSY, LEFT PARAMEDIAN APEX: -- Prostatic adenocarcinoma, Carlos score 3+3=6, Grade Group 1, involving 1 of 1 core and approximately 5% of the overall specimen. See note. Note: PIN4 immunostain cocktail (including p63, [id number] and AMACR) shows loss of basal cells, confirming the diagnosis of adenocarcnoma. B. PROSTATE, NEEDLE BIOPSY, LEFT PARAMEDIAN BASE: -- Discontinuous foci of prostatic adenocarcinoma, Carlos score 3+3=6, Grade Group 1, involving 1 of 1 core and approximately 50% of the overall specimen. See note. Note: PIN4 immunostain cocktail (including p63, [id number] and AMACR) shows loss of basal cells, confirming the diagnosis of adenocarcinoma. C. PROSTATE, NEEDLE BIOPSY, LEFT POSTERIOR APEX: -- Prostatic tissue with no evidence of malignancy. D. PROSTATE, NEEDLE BIOPSY, LEFT POSTERIOR BASE: -- Minute focus of prostatic adenocarcinoma, [place] score 3+3=6, Grade Group 1, involving 1 of 1 core and less than 5% of the overall specimen. See note. E. PROSTATE, NEEDLE BIOPSY, LEFT LATERAL: -- Prostatic tissue with no evidence of malignancy. F. PROSTATE, NEEDLE BIOPSY, LEFT ANTERIOR: -- Prostatic tissue with no evidence of malignancy. G. PROSTATE, NEEDLE BIOPSY, RIGHT PARAMEDIAN APEX: -- Prostatic tissue with no evidence of malignancy. H. PROSTATE, NEEDLE BIOPSY, RIGHT PARAMEDIAN BASE: -- Rare atypical glands, suspicious for adenocarcinoma. See note. I. PROSTATE, NEEDLE BIOPSY, RIGHT POSTERIOR APEX: -- Prostatic tissue with no evidence of malignancy. J. PROSTATE, NEEDLE BIOPSY, RIGHT POSTERIOR BASE: -- Prostatic tissue with no evidence of malignancy. K. PROSTATE, NEEDLE BIOPSY, RIGHT LATERAL: -- Prostatic tissue with no evidence of malignancy. See note. L. PROSTATE, NEEDLE BIOPSY, RIGHT ANTERIOR: -- Prostatic tissue with no evidence of malignancy. Assessment 73 y.o. male who presented with an elevated PSA to PSA 6.57 on 09/05/2023. He underwent prostate biopsy 11/14/[address] Russell Gale and pathology showed Carlos 3+3=6 in 3 of 12 cores, (5-50%). He has low risk clinically localized prostate cancer. He was counseled extensively on the nature of his cancer and his treatment options including activesurveillance, surgical, and radiation-based options were discussed. He was given detailed information regarding the short term and shelter advantages and disadvantages of each treatment option. Including detailed discussion of the urinary, sexual and bowel complications. I told the patient given his low risk features I could not be certain whether this cancer will affect him in his lifetime. Hewould be a good candidate for active surveillance. After discussing this in great detail, the patient decided he would like to pursue this route. We discussed the lack of consensus on the follow-up protocol for active surveillance, but that I typically have patients follow up for a repeat biopsy in1 year. If he shows any signs of disease progression, we would consider initiating treatment at that time. We also discussed when any cancer is not treated, the possibility exists that it could progress from localized curable disease to metastatic incurable disease.He has decided to proceed with active surveillance. Recommended repeat biopsy in ~ Oct 2024. Plan -Patient to call. * Eri Nicole RN - 04/08/2024 1:30 PM EST The patient presents with his for a second opinion re: his recently diagnosed prostate cancer. PMH of possible gastric (MALT) lymphoma, for which he saw Dr. Iris Nava on 08/16/2023, DM (diet controlled), HTN, HLD, and hypothyroid. He now follows locally with oncologist Dr. Tellez. Weight fluctuates a few pounds - appetite good, as is energy. Denies GH, dysuria, UTI. Eri Nicole RN * Ceferino Lopez MD - 04/08/2024 1:30 PM EST I saw and evaluated the patient with DOMINIC Howard. I provided a substantive portion of the care for this patient. I personally performed all aspects of the medical decision making for this encounter. I have reviewed and verified this documentation and it accurately reflects our care. [facility] NoteRequest received for second opinion consultation by Laury Monge APRN-RAGINI. Prostate cancer. Preoperative Diagnosis/Clinical History: Elevated PSA [R97.20].[place]ervilleComment on above:Performed By: #### SURGP #### [facility] (DEFAULT) [address] [id number] History of Present illness Narrative* Yusuf Dean DPM - 02/23/2024 9:25 AM EST Patient: Jennifer Tidwell Date: February 23, 2024 PCP: Jerel Bennett APRN.YARD CALLER Subjective: Jennifer Tidwell is a 73 year old Type II DM male who presents with discolored, thickened, elongated toenails. He states the nails are causing pain and pressure in shoe gear, and is unable to safely manage these nails on their own. Patient also follows up for capsulitis and haskins neuromaright foot today. Patient states he has folllowed all home instructions however states the pain hasnot improved. Patient also admits to dropping item on his left great toe and has bruising under thenail, however states the pain has subsided and denies any loosening to the toenail. Patient admits to regular care with his PCP and states his fasting blood glucose was 101mg/dL this morning. Patientdenies paresthesias in the bl feet. Patient admits to n/v/f/c/sob/cp/abdominal pain, and denies any other lower extremity complaints. Past Medical History: PAST MEDICAL HISTORY Diagnosis Date Allergic rhinitis 10/18/2010 Atrial fibrillation (HCC) Diabetes mellitus type 2 (HCC) 02/20/2014 HTN (hypertension) 10/18/2010 Hyperlipidemia MALT lymphoma Gastric Migraine with visual aura 05/16/2012 Obstructive sleep apnea Cannot tolerate CPAP Renal stone 02/21/2008 Past Surgical History: PAST SURGICAL HISTORY Procedure Laterality Date EGD EXERCISE STRESS TEST WITH NUCLEAR IMAGES PANEL 02/20/2013 abnormal execise stress NUCLEAR EXERCISE STRESS TEST 02/20/2013 normal PAST SURGICAL HISTORY OF 2 arthroscopies of the L knee, and open surgeries for intrinsic derangement PAST SURGICAL HISTORY OF removal of renal stone ( not sure of the method) PAST SURGICAL HISTORY OF fibula-tibiaotomy of the L PAST SURGICAL HISTORY OF right knee arthroscopy and reconstruction RECONSTRUCTION ROTATOR CUFF AVULSION CHRONIC 07/21/2010 left Allergies: Percocet [Oxycodone-Acetaminophen], Ultram [Tramadol Hcl], and Vicodin [Hydrocodone-Acetaminophen] Current Outpatient Medications Medication Sig cholecalciferol, vitD3,/vit K2 (VITAMIN D3-VITAMIN K2 ORAL) Take by mouth. ascorbic acid (VITAMIN C ORAL) Take by mouth. C/sourcherry/celery/grape seed (TART ACOSTA ORAL) Take by mouth. BLUEBERRY APPLE CIDER VINEGAR ORAL Take by mouth. VITAMIN B COMPLEX ORAL Take by mouth. levothyroxine (SYNTHROID) 50 mcg tablet Take 50 mcg by mouth once daily. OTC NUTRITIONAL SUPPLEMENT once daily. QC Turmeric Apolic Acid Bererdine with Cylon Cinnamon Zinc MCT Oil No current facility-administered medications for this visit. [...] weakness and headaches. Objective: Physical Exam Temp 36.7 C (98.1 F) Ht 175.3 cm (5' 9) Wt 68.9 kg (152 lb) BMI 22.45 kg/m BMI 22.45 kg/(m^2) DP and PT arteries palpable 1+/4+. [...] the foot and ankle is 5/5 bilateral. Moderate pain on palpation with focal edema sub 3rd and 4th MPJ right foot. Minimal pain on palpation 3rd interspace between 3rd and 4th Metatarsals distally right foot. Ankle equinus deformity is moderate and noted to Both feet. Unable to dorsiflex the footat the level of the ankle joint relative to the leg 10 degrees with knee straight. Unable to dorsiflex the foot at the level of the ankle joint relative to the leg 10 degrees with knee bent to 90 degrees. ] Toenails 1-5 bl are discolored, elongated, and thickened, and clinically consistent with onychomycosis. Subungual hematoma to the left hallux toenail approximally 50% affected, no onycholysis noted, no ecchymosis to surrounding soft tissue, no openings, no SOI. Webspaces 1-4 bl are clean, dry, and intact. No interdigital maceration, no masses, no open lesions. XRAY RIGHT FOOT 10/03/2023 IMPRESSION: 1. 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 Patient is to continue with daily lowerextremity inspections and tight blood glucose control. -Patient instructed to use OTC lotion to bl lower extremities daily for xerosis management, and avoid application to webspace's -Patient instructed not to go barefoot and to wear good supportive shoe gear. -patient educated on the etiology and treatment of subungual hematoma -no treatment at this time however patient will monitor closely at home as instructed and RTC immediately if any issues noted as discussed - patient educated on the signs and symptoms of infection, and instructed to call the office and/orpresent the the ED if noted. -patient again educated on the etiology and treatment of neuroma and capsulitis -radiographs reviewed and no significant abnormalities noted -patient capsulitis and neuroma pain continues -patient instructed to continue rest, ice, elevate PRN -defers EBM C4 topical broad spectrum CBD due to cost -patient defers injection at this time -continue stretching as instructed today for ankle equinus -patient to continue diabetic shoes with custom diabetic insoles with additional met pad added -patient WBAT -patient instructed not to go barefoot -Instructed to contact our office if any lower extremity problems develop before next visit Return in about 9 weeks (around 04/26/2024). Yusuf Dean DPM documented in this encounterGrand [facility]12-30-[facility] History of Present illness Narrative* Braydon Tellez MD - 02/19/2024 11:50 AM EST HEMATOLOGY/ONCOLOGY Jennifer Tidwell returns for a follow up EGD/colon performed 02/17/[address] Rivera who ordered Treatment for H pylori 02/24/23: bismuth subsalicylate 262 mg po qid; doxycycline hyclate 100 mg po bid; metronidazole 250 mg po qid; [id number] mg po bid. The patient did not take bismuth subsalicylate (only a few doses b/o he is diabetic);therefore he then took Clarithromycin triple therapy 03/07/23. Cardiology referral for atrial fibrillation noted during the procedure. He states he has new diagnosis of prostate cancer Milford 3+3 in October 2023, Dr. Busby (). He is on surveillance. Interim history: Denies bleeding, CP, abdominal pain, headaches, fevers, night sweats or unwanted weight loss. No nausea, vomiting, diarrhea or GI bleed. PMHx, PSHX, FHx and ROS are documented in [facility]. All of these were reviewed and verified with patient. Father had prostate cancer and DM. Denies FH of breast, ovarian, pancreatic cancer. Review Of Systems: All systems reviewed with pertinent positives and negatives as outlined in the HPI. Physical Examination: BP 139/68 Pulse 61 Temp 36.4 C (97.5 F) (Temporal) Resp 16 Wt 70.7 kg (155 lb 12.1 oz) SpO2 99% BMI 23.00 kg/m On exam, he appears to be comfortable, in no acute distress. Vitals: see above. Alert and oriented x3. Heart with regular rhythm. No enlarged lymphadenopathy. Abdomen is soft. No hepatosplenomegaly. Lower extremities: No edema. Neuro exam: Nonfocal Labs: Latest Reference Range & Units Most Recent Interpretation (MPA) Atypical restricted bands are present in the IgG and kappa regions. Consistentwith IgG kappa monoclonal gammopathy. 07/06/23 12:05 Interpretation (Prot Electro) No definitive M protein is identified on protein electrophoresis. An M protein is identified on protein electrophoresis. ! 07/06/23 12:05 Interpretation (Urine Electro) No definitive M protein is identified on protein electrophoresis. Nodefinitive M protein is identified on protein electrophoresis. 07/06/23 12:30 Interpretation Comment for Protein Electrophoresis See separate immunofixation report for characterization of monoclonal gammopathy. 07/06/23 12:05 K/L Ratio, Serum 0.26 - 1.65 1.89 (H) 07/06/23 12:05 [place] Free, Serum 3.3 - 19.4 mg/L 20.4 (H) 07/06/23 12:05 Lambda Free, Serum 5.7 - 26.3 mg/L 10.8 07/06/23 12:05 MPA Result No M protein is identified. M protein is present. ! 07/06/23 12:05 M-Protein Concentration <=0.00 g/dL 0.37 (H) 5/16/24 12:05 03/15/23 Bone marrow, aspirate, touch imprint, clot section and core biopsy: - Normocellular marrow (30%) with trilineage hematopoiesis. - Adequate megakaryocytes. - Stainable iron present without ring sideroblasts. - Plasma cell hyperplasia with slightly increased kappa:lambda ratio (see comment). - No evidence of marrow involvement by lymphoma (see comment). There is no evidence of involvement by a lymphoproliferative disorder or abnormal blast population.Correlation with the clinical and bone marrow histopathologic findings is suggested. 02/17/23 A. 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 - Gastric antral mucosa with chronic active gastritis. - Positive for H. pylori microorganisms (morphologically confirmed on H&E sections). Interphase fluorescence in situ hybridization (FISH) was negative for a rearrangement involving theMALT1 gene (18q21.32). Diagnosis Comment H&E-stained sections in part A reveal gastric antral mucosa with chronic active gastritis and adiffuse vaguely nodular lymphoid infiltrate composed of small mature lymphocytes with abundant cytoplasm, slightly irregular nuclear contours, and intermixed plasma cells. Multifocally, these lymphocytes are infiltrating mucus glands, compatible with lymphoepithelial lesions. H. pylori organisms are also identified on the H&E section. Immunohistochemical stains were performed at [facility] on block A1. A significant majority (80%) of the lymphocytes are atypical B cells, positive for CD20 and CD43. CD3 and CD5 highlight far fewer, scattered background T lymphocytes. FISH testing for a MALT1 rearrangement Addendum Interphase fluorescence in situ hybridization (FISH) was negative for a rearrangement involving theMALT1 gene (18q21.32). 02/17/23 EGD: Impression: - Normal hypopharynx. - No gross lesions in the upper third of the esophagus and in the middle third of the esophagus. - Z-line regular, 41 cm from the incisors. - Erythematous mucosa in the gastric body and greater curvature of the gastric antrum. Biopsied. - No gross lesions in the duodenal bulb, in the first portion of the duodenum, in the second portion of the duodenum and in the third portion of the duodenum. - Gastroesophageal flap valve classified as Hill Grade I (prominent fold, tight to endoscope). 02/17/23 colonoscopy: Impression: - Stool in the ascending colon and in the cecum. - Diverticulosis in the recto-sigmoid colon, in the sigmoid colon, in the descending colon and in the ascending colon. - One less than 5 mm, non-bleeding polyp in the sigmoid colon, removed piecemeal using a cold biopsy forceps. Resected and retrieved. - The examination was otherwise normal on direct and retroflexion views. 07/24/23 EGD Impression: - Normal hypopharynx. - Z-line regular, 40 cm from the incisors. - Small sliding hiatal hernia. - Erythematous mucosa in the anterior wall of the gastric antrum. - Clear gastric fluid. - No gross lesions in the duodenal bulb, in the first portion of the duodenum and in the second portion of the duodenum. - Gastroesophageal flap valve classified as Hill Grade I (prominent fold, tight to endoscope). - Five biopsies were obtained on the greater curvature of the gastric body, on the lesser curvature of the gastric body, at the incisura, on the greater curvature of the gastric antrum and on the lesser curvature of the gastric antrum. 07/24/23 SURGICAL PATHOLOGY: [id number] A. Antrum, greater curvature, biopsy: -Antral mucosa with chronic inactive gastritis -Negative for Helicobacter pylori B. Antrum, lesser curvature, biopsy: -Antral mucosa with chronic inactive gastritis C. Incisura, biopsy: -Oxyntic mucosa with no diagnostic alteration D. Stomach body greater curvature, biopsy: -Oxyntic mucosa with no diagnostic alteration E. Stomach, body lesser curvature, biopsy: -Oxyntic mucosa with no diagnostic alteration Helicobacter pylori stain was obtained and is negative 02/05/24 SURGICAL PATHOLOGY: [id number] FINAL DIAGNOSIS A. Stomach, antrum, lesser curve, biopsy: - Antral mucosa with reactive gastropathy. - No morphologic evidence of Helicobacter. B. Stomach, antrum, greater curve, biopsy: - Antral mucosa with reactive gastropathy. - No morphologic evidence of Helicobacter. C. Stomach, body, greater curvature, biopsy: - Corpus mucosa with patchy chronic inactive gastritis. - No morphologic evidence of Helicobacter. D. Stomach, body, lesser curve, biopsy: - Corpus mucosa with patchy chronic inactive gastritis. - No morphologic evidence of Helicobacter. E. Stomach, incisura, biopsy: - Antral mucosa with chronic inactive gastritis. - No morphologic evidence of Helicobacter. F. Stomach, 'body adjacent to ulcer,' biopsy: - Antral mucosa with reactive changes. - No morphologic evidence of Helicobacter. Diagnosis Comment A-F. 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 There is no morphologic evidence of lymphoma in these biopsies. F. A gastrin stain is positive, confirming the presence of antral mucosa. A chromogranin stain highlights a normal distribution of endocrine cells within the antrum. An immunostain for Helicobacter is negative. 02/05/24 EGD: Impression: - Normal oropharynx. - No gross lesions in the upper third of the esophagus and in the middle third of the esophagus. - Z-line regular, 41 cm from the incisors. - Bilious gastric fluid. - Gastric mucosal atrophy. - Non-bleeding gastric ulcer with a clean ulcer base (Anthony Class III). Biopsied. - No gross lesions in the duodenal bulb, in the first portion of the duodenum and in the second portion of the duodenum. - Gastroesophageal flap valve classified as Hill Grade I (prominent fold, tight to endoscope). - Five biopsies were obtained on the greater curvature of the gastric body, on the lesser curvature of the gastric body, at the incisura, on the greater curvature of the gastric antrum and on the lesser curvature of the gastric antrum. Imaging Studies: 03/30/23 PET: HEAD/NECK: * No FDG avid neoplastic process. CHEST: * No FDG avid neoplastic process. ABDOMEN/PELVIS: * No FDG avid neoplastic process. Specifically, no FDG avid gastric abnormality is apparent. MUSCULOSKELETAL: * No FDG avid neoplastic process. 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 Interphase fluorescence in situ hybridization (FISH) was negative for a rearrangement involving theMALT1 gene (18q21.32). 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 An immunostain for Helicobacter is negative. He has new diagnosis of prostate cancer under surveillance with Dr. Busby at . Plan: Cardiology applying [employer] MPA, UMPA, SPEP, UPEP, kappa/lambda now and 6 months Restage at 6 month with endoscopy/biopsy, for H. pylori/lymphoma after antibiotics Cardiology Dr. Hollis EGD with biopsy-negative for NHL on 07/24/[address] Rivera UpToDate: We typically perform endoscopy with biopsies every three months until a histologic complete response (CR) is attained, and then perform endoscopy every six months for at least the first twoyears and then suggest endoscopy every 18 months and as clinically indicated. Surveillance can stopin asymptomatic patients once two sequential endoscopies show no abnormalities on biopsy. Surveillance endoscopy evaluates for recurrence and for gastric adenocarcinoma; surveillance is especially important for those with persistent chronic gastritis that may have components of gastric atrophy or ga stric/intestinal metaplasia. 6 month OV after endoscopy Braydon Tellez M.D. (Elements copied from my previous note, have been reviewed and updated where appropriate, and all reflect current assessment and medical decision making from today's encounter.) Medical Decision Making: Data: Unique test result(s) reviewed: 3+ Unique test(s) ordered: 3+ Medical Decision Making Level: 1 - N/A Cc: No ref. provider found Jerel Bennett APRN.RAGINI RAJPUT, BREANNA MATTHEW, EMELYN SAAVEDRA documented in this encounterGrand Lake [facility] NoteHNO ID: [id number] Author: BRAYDON TELLEZ MD Service: ? Author Type: Physician Type: Progress Notes Filed: 02/19/2024 15:52 Note Text: HEMATOLOGY/ONCOLOGY Jennifer Tidwell returns for a follow up EGD/colon performed 02/17/[address] Rivera who ordered Treatment for H pylori 02/24/23: bismuth subsalicylate 262 mg po qid; doxycycline hyclate 100 mg po bid; metronidazole 250 mg po qid; pantoprazole 40 mg po bid. The patient did not take bismuth subsalicylate (only a few doses b/o he is diabetic); therefore he then took Clarithromycin triple therapy 03/07/23. Cardiology referral for atrial fibrillation noted during the procedure. He states he has new diagnosis of prostate cancer [place] 3+3 in October 2023, Dr. Busby (). He is on surveillance. Interim history: Denies bleeding, CP, abdominal pain, headaches, fevers, night sweats or unwanted weight loss. No nausea, vomiting, diarrhea or GI bleed. PMHx, PSHX, FHx and ROS are documented in [facility]. All of these were reviewed and verified with patient. Father had prostate cancer and DM. Denies FH of breast, ovarian, pancreatic cancer. Review Of Systems: All systems reviewed with pertinent positives and negatives as outlined in the HPI. Physical Examination: BP 139/68 Pulse 61 Temp 36.4 ?C (97.5 ?F) (Temporal) Resp 16 Wt 70.7 kg (155 lb 12.1 oz) SpO2 99% BMI 23.00 kg/m? On exam, he appears to be comfortable, in no acute distress. Vitals: see above. Alert and oriented x3. Heart with regular rhythm. No enlarged lymphadenopathy. Abdomen is soft. No hepatosplenomegaly. Lower extremities: No edema. Neuro exam: Nonfocal Labs: Latest Reference Range AND Units Most Recent Interpretation (MPA) Atypical restricted bands are present in the IgG and kappa regions. Consistent with IgG kappa monoclonal gammopathy. 07/06/23 12:05 Interpretation (Prot Electro) No definitive M protein is identified on protein electrophoresis. An M protein is identified on protein electrophoresis. ! 07/06/23 12:05 Interpretation (Urine Electro) No definitive M protein is identified on protein electrophoresis. No definitive M protein is identified on protein electrophoresis. 07/06/23 12:30 Interpretation Comment for Protein Electrophoresis See separate immunofixation report for characterization of monoclonal gammopathy. 07/06/23 12:05 K/L Ratio, Serum 0.26 - 1.65 1.89 (H) 07/06/23 12:05 [place] Free, Serum 3.3 - 19.4 mg/L 20.4 (H) 07/06/23 12:05 Lambda Free, Serum 5.7 - 26.3 mg/L 10.8 07/06/23 12:05 MPA Result No M protein is identified. M protein is present. ! 07/06/23 12:05 M-Protein Concentration <=0.00 g/dL 0.37 (H) 07/06/23 12:05 03/15/23 Bone marrow, aspirate, touch imprint, clot section and core biopsy: - Normocellular marrow (30%) with trilineage hematopoiesis. - Adequate megakaryocytes. - Stainable iron present without ring sideroblasts. - Plasma cell hyperplasia with slightly increased kappa:lambda ratio (see comment). - No evidence of marrow involvement by lymphoma (see comment). There is no evidence of involvement by a lymphoproliferative disorder or abnormal blast population. Correlation with the clinical and bone marrow histopathologic findings is suggested. 02/17/23 A. 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 - Gastric antral mucosa with chronic active gastritis. - Positive for H. pylori microorganisms (morphologically confirmed on ANDREY sections). Interphase fluorescence in situ hybridization (FISH) was negative for a rearrangement involving the MALT1 gene (18q21.32). Diagnosis Comment ANDREY-stained sections in part A reveal gastric antral mucosa with chronic active gastritis and a diffuse vaguely nodular lymphoid infiltrate composed of small mature lymphocytes with abundant cytoplasm, slightly irregular nuclear contours, and intermixed plasma cells. Multifocally, these lymphocytes are infiltrating mucus glands, compatible with lymphoepithelial lesions. H. pylori organisms are also identified on the ANDREY section. Immunohistochemical stains were performed at [facility] on block A1. A significant majority (80%) of the lymphocytes are atypical B cells, positive for CD20 and CD43. CD3 and CD5 highlight far fewer, scattered background T lymphocytes. FISH testing for a MALT1 rearrangement Addendum Interphase fluorescence in situ hybridization (FISH) was negative for a rearrangement involving the MALT1 gene (18q21.32). 02/17/23 EGD: Impression: - Normal hypopharynx. - No gross lesions in the upper third of the esophagus and in the middle third of the esophagus. - Z-line regular, 41 cm from the incisors. - Erythematous mucosa in the gastric body and greater curvature of the gastric antrum. Biopsied. - No gross lesions in the duodenal bulb, in the first portion (more content not included)...[facility]12-16-[facility] Nurse Note* Africa Coffey RN - 02/05/2024 2:11 PM EST AMBULATORY PATIENT EDUCATION NOTE TOPIC: GI PROCEDURES: Esophagogastroduodenoscopy(EGD) with or without biopies based on clinical findings, removal of polyps or lesions READINESS TO LEARN INSTRUCTION PROVIDED TO: Patient, readness to learn accessed prior to procedure and Family member COGNITIVE ABILITY: Alert and oriented PTED MOTIVATION TO LEARN: Interested FAMILY SUPPORT: High - Very involved in pt care IPATIENT LEARNS BEST BY: Individual Instruction Written Instruction - Hand-outs Verbal Instruction FACTORS AFFECTING LEARNING: None PHYSICAL LIMITATIONS AFFECTING LEARNING: None LEARNING RESPONSE METHOD OF INSTRUCTION: Individual instruction PATIENT / FAMILY RESPONSE: Verbalizes understanding of: WORSENING CONDITION- Signs and symptoms of aworsening condition that warrant a call to the physician FOLLOW-UP PLAN: Patient instructed to call with any further issues Recommend - Recommend continued instruction and follow up as directed Contact information given. SUPPLEMENTAL MATERIAL: Procedure Discharge Instructions REFERRAL (RECOMMENDATION): None [facility]12-16-[facility] Nurse Note* Africa Coffey RN - 02/05/2024 2:11 PM EST AMBULATORY PATIENT EDUCATION NOTE TOPIC: GI PROCEDURES: Esophagogastroduodenoscopy(EGD) with or without biopies based on clinical findings, removal of polyps or lesions READINESS TO LEARN INSTRUCTION PROVIDED TO: Patient, readness to learn accessed prior to procedure and Family member COGNITIVE ABILITY: Alert and oriented PTED MOTIVATION TO LEARN: Interested FAMILY SUPPORT: High - Very involved in pt care IPATIENT LEARNS BEST BY: Individual Instruction Written Instruction - Hand-outs Verbal Instruction FACTORS AFFECTING LEARNING: None PHYSICAL LIMITATIONS AFFECTING LEARNING: None LEARNING RESPONSE METHOD OF INSTRUCTION: Individual instruction PATIENT / FAMILY RESPONSE: Verbalizes understanding of: WORSENING CONDITION- Signs and symptoms of aworsening condition that warrant a call to the physician FOLLOW-UP PLAN: Patient instructed to call with any further issues Recommend - Recommend continued instruction and follow up as directed Contact information given. SUPPLEMENTAL MATERIAL: Procedure Discharge Instructions REFERRAL (RECOMMENDATION): None * Juventino Bill LPN - 02/05/2024 12:54 PM EST PRE OP LEARNING ASSESSMENT PROCEDURE/SURGERY: GI PROCEDURES: EGD READINESS TO LEARN COGNITIVE ABILITY: Alert and oriented MOTIVATION TO LEARN: Eager FAMILY SUPPORT: High - Very involved in pt care PATIENT LEARNS BEST BY: Individual Instruction FACTORS AFFECTING LEARNING: None PHYSICAL LIMITATIONS AFFECTING LEARNING: None Electronically Signed By: Juventino Bill LPN In Department: GASTROENTEROLOGY documented in this encounterGrand Lake [facility]12-[facility] NoteQ3 Patient Name: Jennifer Tidwell Procedure Date: 02/05/2024 1:28 PM Date of : 1950 Admit Type: Outpatient Age: 73 Gender: Male Note Status: Finalized Attending MD: Erin Rivera , , [id number] Procedure: Upper GI endoscopy Indications: Surveillance procedure, , for personal history of MALT lymphoma Providers: Erin Rivera Patient Profile: This is a 73 year old male. Refer to note in patient chart for documentation of history and physical. Referring Physician: Erin Rivera (Referring MD) Medicines: Monitored Anesthesia Care Complications: No immediate complications. Requesting Provider: Procedure: Pre-Anesthesia Assessment: - Prior to the procedure, a History and Physical was performed, and patient medications and allergies were reviewed. The patient is competent. The risks and benefits of the procedure and the sedation options and risks were discussed with the patient. All questions were answered and informed consent was obtained. Patient identification and proposed procedure were verified by the physician, the nurse and the welding robot operator in the pre-procedure area in the endoscopy suite. Mental Status Examination: alert and oriented. Airway Examination: normal oropharyngeal airway and neck mobility. Respiratory Examination: clear to auscultation. CV Examination: normal. Prophylactic Antibiotics: The patient does not require prophylactic antibiotics. Prior Anticoagulants: The patient has taken no anticoagulant or antiplatelet agents. ASA Grade Assessment: II - A patient with mild systemic disease. After reviewing the risks and benefits, the patient was deemed in satisfactory condition to undergo the procedure. The anesthesia plan was to use monitored anesthesia care (MAC). Immediately prior to administration of medications, the patient was re-assessed for adequacy to receive sedatives. The heart rate, respiratory rate, oxygen saturations, blood pressure, adequacy of pulmonary ventilation, and response to care were monitored throughout the procedure. The physical status of the patient was re-assessed after the procedure. After obtaining informed consent, the endoscope was passed under direct vision. Throughout the procedure, the patient's blood pressure, pulse, and oxygen saturations were monitored continuously. The Endoscope was introduced through the mouth, and advanced to the second part of duodenum. The upper GI endoscopy was accomplished without difficulty. The patient tolerated the procedure well. Moderate Sedation: MAC anesthesia was administered by the anesthesia team. Findings: The oropharynx was normal. No gross lesions were noted in the upper third of the esophagus and in the middle third of the esophagus. The Z-line was regular and was found 41 cm from the incisors. Bilious fluid was found in the gastric body. Patchy atrophic mucosa was found in the gastric antrum. One non-bleeding superficial gastric ulcer with a clean ulcer base (Anthony Class III) was found on the posterior wall of the gastric body. The lesion was less than one mm in largest dimension. Biopsies were taken with a cold forceps for histology. Verification of patient identification for the specimen was done using the patient's name and date. Estimated blood loss was minimal. Bottle label was F. No gross lesions were noted in the duodenal bulb, in the first portion of the duodenum and in the second portion of the duodenum. The gastroesophageal flap valve was visualized endoscopically and classified as Hill Grade I (prominent fold, tight to endoscope). Five biopsies were obtained with cold forceps for histology and Helicobacter pylori testing given history of MALT lymphoma on the greater curvature of the gastric body, on the lesser curvature of the gastric body, at the incisura, on the greater curvature (more content not included)...[id number] NoteQ3 Patient Name: Jennifer Tidwell Procedure Date: 02/05/2024 1:28 PM Date of : 1950 Admit Type: Outpatient Age: 73 Gender: Male Note Status: Finalized Attending MD: Erin Rivera , , [id number] Procedure: Upper GI endoscopy Indications: Surveillance procedure, , for personal history of MALT lymphoma Providers: Erin Rivera Patient Profile: This is a 73 year old male. Refer to note in patient chart for documentation of history and physical. Referring Physician: Erin Rivera (Referring MD) Medicines: Monitored Anesthesia Care Complications: No immediate complications. Requesting Provider: Procedure: Pre-Anesthesia Assessment: - Prior to the procedure, a History and Physical was performed, and patient medications and allergies were reviewed. The patient is competent. The risks and benefits of the procedure and the sedation options and risks were discussed with the patient. All questions were answered and informed consent was obtained. Patient identification and proposed procedure were verified by the physician, the nurse and the welding robot operator in the pre-procedure area in the endoscopy suite. Mental Status Examination: alert and oriented. Airway Examination: normal oropharyngeal airway and neck mobility. Respiratory Examination: clear to auscultation. CV Examination: normal. Prophylactic Antibiotics: The patient does not require prophylactic antibiotics. Prior Anticoagulants: The patient has taken no anticoagulant or antiplatelet agents. ASA Grade Assessment: II - A patient with mild systemic disease. After reviewing the risks and benefits, the patient was deemed in satisfactory condition to undergo the procedure. The anesthesia plan was to use monitored anesthesia care (MAC). Immediately prior to administration of medications, the patient was re-assessed for adequacy to receive sedatives. The heart rate, respiratory rate, oxygen saturations, blood pressure, adequacy of pulmonary ventilation, and response to care were monitored throughout the procedure. The physical status of the patient was re-assessed after the procedure. After obtaining informed consent, the endoscope was passed under direct vision. Throughout the procedure, the patient's blood pressure, pulse, and oxygen saturations were monitored continuously. The Endoscope was introduced through the mouth, and advanced to the second part of duodenum. The upper GI endoscopy was accomplished without difficulty. The patient tolerated the procedure well. Moderate Sedation: MAC anesthesia was administered by the anesthesia team. Findings: The oropharynx was normal. No gross lesions were noted in the upper third of the esophagus and in the middle third of the esophagus. The Z-line was regular and was found 41 cm from the incisors. Bilious fluid was found in the gastric body. Patchy atrophic mucosa was found in the gastric antrum. One non-bleeding superficial gastric ulcer with a clean ulcer base (Anthony Class III) was found on the posterior wall of the gastric body. The lesion was less than one mm in largest dimension. Biopsies were taken with a cold forceps for histology. Verification of patient identification for the specimen was done using the patient's name and date. Estimated blood loss was minimal. Bottle label was F. No gross lesions were noted in the duodenal bulb, in the first portion of the duodenum and in the second portion of the duodenum. The gastroesophageal flap valve was visualized endoscopically and classified as Hill Grade I (prominent fold, tight to endoscope). Five biopsies were obtained with cold forceps for histology and Helicobacter pylori testing given history of MALT lymphoma on the greater curvature of the gastric body, on the lesser curvature of the gastric body, at the incisura, on the greater curvature of the gastric antrum and on the lesser curvature of the gastric antrum. The pathology specimen was placed into Bottles Numbered A-E. Impression: - Normal oropharynx. - No gross lesions in the upper third of the esophagus and in the middle third of the esophagus. - Z-line regular, 41 cm from the incisors. - Bilious gastric fluid. - Gastric mucosal atrophy. - Non-bleeding gastric ulcer with a clean ulcer base (Anthony Class III). Biopsied. - No gross lesions in the duodenal bulb, in the first portion of the duodenum and in the second portion of the duodenum. - Gastroesophageal flap valve classified as Hill Grade I (prominent fold, tight to endoscope). - Five biopsies were obtained on the greater curvature of the gastric body, on the lesser curvature of the gastric body, at the incisura, on the greater curvature of the gastric antrum and on the lesser curvature of the gastric antrum. Estimated Blood Loss: Estimated blood loss was minimal. Recommendation: - Patient has a contact number available for antione (more content not included)...[facility]12[facility] History and physical note* Erin Rivera MD - 02/05/2024 1:00 PM EST ENDOSCOPY HISTORY AND PHYSICAL EXAM Jennifer Jossy [place] [id number] Subjective HPI: This is a 72 year old male who presents for endoscopy. He has a history of hypertension, diabetes and sleep apnea. He was evaluated outpatient gastroenterology clinic in fall 2022 for a complaint of burning/coughing sensation in his throat with coffee or other triggers but without dysphagia or odynophagia. An EGDin 01/2023 demonstrated H pylori infection and mild MALT lymphoma. He is due for surveillance endoscopy. PAST ANESTHESIA HISTORY: stomach cramps with fentanyl PAST MEDICAL HISTORY Diagnosis Date Allergic rhinitis 10/18/2010 Atrial fibrillation (HCC) Diabetes mellitus type 2 (HCC) 02/20/2014 HTN (hypertension) 10/18/2010 Hyperlipidemia MALT lymphoma Gastric Migraine with visual aura 05/16/2012 Obstructive sleep apnea Cannot tolerate CPAP Renal stone 02/21/2008 PAST SURGICAL HISTORY Procedure Laterality Date EGD EXERCISE STRESS TEST WITH NUCLEAR IMAGES PANEL 02/20/2013 abnormal execise stress NUCLEAR EXERCISE STRESS TEST 02/20/2013 normal PAST SURGICAL HISTORY OF 2 arthroscopies of the L knee, and open surgeries for intrinsic derangement PAST SURGICAL HISTORY OF removal of renal stone ( not sure of the method) PAST SURGICAL HISTORY OF fibula-tibiaotomy of the L PAST SURGICAL HISTORY OF right knee arthroscopy and reconstruction RECONSTRUCTION ROTATOR CUFF AVULSION CHRONIC 07/21/2010 left Prior to Admission medications as of 02/05/24 1311 Medication Sig Last Dose Taking cholecalciferol, vitD3,/vit K2 (VITAMIN D3-VITAMIN K2 ORAL) Take by mouth. ascorbic acid (VITAMIN C ORAL) Take by mouth. C/sourcherry/celery/grape seed (TART ACOSTA ORAL) Take by mouth. BLUEBERRY APPLE CIDER VINEGAR ORAL Take by mouth. VITAMIN B COMPLEX ORAL Take by mouth. levothyroxine (SYNTHROID) 50 mcg tablet Take 50 mcg by mouth once daily. OTC NUTRITIONAL SUPPLEMENT once daily. QC Turmeric Apolic Acid Bererdine with Cylon Cinnamon Zinc MCT Oil ALLERGIES Allergen Reactions Percocet [Oxycodone* Intolerance Ultram [Tramadol Hc* Intolerance Vicodin [Hydrocodon* Other: See Comments Objective PHYSICAL EXAM: The remainder of the physical exam is noncontributory. AIRWAY: LUNGS: Lungs clear to auscultation CARDIAC: Regular rhythm, Assessment/Plan ASA Class: Active Problems: * No active hospital problems. * Resolved Problems: * No resolved hospital problems. * Medication and Non-Pharmacologic VTE Prophylaxis/Anticoagulants VTE Prophylaxis: not indicated for procedure Provisional Diagnosis/Treatment Plan: EGD with biopsy Consent has been signed Sedation Goal: Anesthesia Erin Rivera MD 02/05/2024 1:12 PM [facility]12-16-2024 History and physical note* Erin Rivera MD - 02/05/2024 1:00 PM EST ENDOSCOPY HISTORY AND PHYSICAL EXAM Jennifer Tidwell [id number] Subjective HPI: This is a 72 year old male who presents for endoscopy. He has a history of hypertension, diabetes and sleep apnea. He was evaluated outpatient gastroenterology clinic in fall 2022 for a complaint of burning/coughing sensation in his throat with coffee or other triggers but without dysphagia or odynophagia. An EGDin 01/2023 demonstrated H pylori infection and mild MALT lymphoma. He is due for surveillance endoscopy. PAST ANESTHESIA HISTORY: stomach cramps with fentanyl PAST MEDICAL HISTORY Diagnosis Date Allergic rhinitis 10/18/2010 Atrial fibrillation (HCC) Diabetes mellitus type 2 (HCC) 02/20/2014 HTN (hypertension) 10/18/2010 Hyperlipidemia MALT lymphoma Gastric Migraine with visual aura 05/16/2012 Obstructive sleep apnea Cannot tolerate CPAP Renal stone 02/21/2008 PAST SURGICAL HISTORY Procedure Laterality Date EGD EXERCISE STRESS TEST WITH NUCLEAR IMAGES PANEL 02/20/2013 abnormal execise stress NUCLEAR EXERCISE STRESS TEST 02/20/2013 normal PAST SURGICAL HISTORY OF 2 arthroscopies of the L knee, and open surgeries for intrinsic derangement PAST SURGICAL HISTORY OF removal of renal stone ( not sure of the method) PAST SURGICAL HISTORY OF fibula-tibiaotomy of the L PAST SURGICAL HISTORY OF right knee arthroscopy and reconstruction RECONSTRUCTION ROTATOR CUFF AVULSION CHRONIC 07/21/2010 left Prior to Admission medications as of 02/05/24 1311 Medication Sig Last Dose Taking cholecalciferol, vitD3,/vit K2 (VITAMIN D3-VITAMIN K2 ORAL) Take by mouth. ascorbic acid (VITAMIN C ORAL) Take by mouth. C/sourcherry/celery/grape seed (TART ACOSTA ORAL) Take by mouth. BLUEBERRY APPLE CIDER VINEGAR ORAL Take by mouth. VITAMIN B COMPLEX ORAL Take by mouth. levothyroxine (SYNTHROID) 50 mcg tablet Take 50 mcg by mouth once daily. OTC NUTRITIONAL SUPPLEMENT once daily. QC Turmeric Apolic Acid Bererdine with Cylon Cinnamon Zinc MCT Oil ALLERGIES Allergen Reactions Percocet [Oxycodone* Intolerance Ultram [Tramadol Hc* Intolerance Vicodin [Hydrocodon* Other: See Comments Objective PHYSICAL EXAM: The remainder of the physical exam is noncontributory. AIRWAY: LUNGS: Lungs clear to auscultation CARDIAC: Regular rhythm, Assessment/Plan ASA Class: Active Problems: * No active hospital problems. * Resolved Problems: * No resolved hospital problems. * Medication and Non-Pharmacologic VTE Prophylaxis/Anticoagulants VTE Prophylaxis: not indicated for procedure Provisional Diagnosis/Treatment Plan: EGD with biopsy Consent has been signed Sedation Goal: Anesthesia Erin Rivera MD 02/05/2024 1:12 PM [facility]* Juventino Bill LPN - 02/05/2024 12:54 PM EST PRE OP LEARNING ASSESSMENT PROCEDURE/SURGERY: GI PROCEDURES: EGD READINESS TO LEARN COGNITIVE ABILITY: Alert and oriented MOTIVATION TO LEARN: Eager FAMILY SUPPORT: High - Very involved in pt care PATIENT LEARNS BEST BY: Individual Instruction FACTORS AFFECTING LEARNING: None PHYSICAL LIMITATIONS AFFECTING LEARNING: None Electronically Signed By: Juventino Bill LPN In Department: GASTROENTEROLOGY [facility]12-12-2024 Instructions* Patient Instructions* Kait Montiel APRN.YARD CALLER - 02/01/2024 1:00 PM EST Images from the original note were not included. [facility] PATIENT PREOPERATIVE INSTRUCTIONS Erin Rivera MD scheduled you for your procedure at this surgery center: [facility] Scheduling Office: [phone] --[address] [place] [address]. Please read below carefully for your personalized instructions. Arrival Time for Surgery: - The Surgery Center or hospital where you are having surgery will call the afternoon before surgery (or Monday for Monday surgery) with a scheduled arrival time. - If you have not heard by 4 pm, please contact the surgery center above. Please be aware that emergency situations arise, which may delay or change your surgical time. If this happens, we will notify you as soon as possible and regret any inconvenience. Dietary Restrictions: - No solid food after midnight. - You may have 12 ounces of clear liquids (water, clear juices such as apple juice or gatorade, carbonated beverages, clear tea, black coffee, jello) until 2 hours before scheduled arrival at facility. Medications: Unless instructed differently below, stay on all of your medications until your surgery. Approved medications to take the morning of surgery with a sip of water: Levothyroxine If you are currently using a [id number] injectable or oral medication for diabetes or weight loss such as Dulaglutide (Trulicity), Exenatide (Byetta, Bydureon), Liraglutide (Victoza, Saxenda), Semaglutide (Ozempic, Wegovy, Rybelsus), or Tirzepatide (Mounjaro), the medicine should be stopped at least 7 days before surgery. These medicines can cause food to remain in your stomach for a very longtime and increase the risks from surgery and anesthesia. Not stopping the medication for a long enough time may result in your surgery being rescheduled. If you take any medications for erectile dysfunction-Cialis (Tadalafil), Levitra, Staxyn (Vardenafil) Viagra (Sildenenafil please do not take these for 48 hours before surgery. If you start any new medications after today's visit, please contact the surgeon's office. Blood Thinning Medications: - Stop NSAIDS (Ibuprofen, Advil, Aleve, Motrin, Celebrex, Mobic, etc.) 7 days before surgery, as directed by your surgeon. - Stop Aspirin 7 days before surgery, as directed by your surgeon. - Stop ALL herbal and dietary supplements 7 days before surgery. - You may take Tylenol (Acetaminophen) or any of your pain medications that do not contain aspirin or NSAIDS as needed. Important Reminders: - If you are prescribed inhalers for breathing, continue using them. - Candy, mints, and tobacco products are NOT permitted the morning of surgery. - Hearing aids, dentures and glasses may be worn the morning of surgery. - NO jewelry, body piercings, makeup, hairpins or contacts are to be worn the day of surgery. If you develop symptoms such as a fever, cold, or flu, or have other changes to your health within TWO DAYS of scheduled surgery or the morning of surgery, please contact the surgery center above. Personal Belongings: -Please have photo ID and insurance cards. -If you do not have a copy of advance directives on file with us, please bring a copy with you on the day of surgery. - Leave ALL valuables and money at home or with family members. For Outpatient Procedures: - YOU MUST HAVE A RESPONSIBLE SPRING COILER HAND TAKE YOU HOME. A [employer] CONSULTANT OR SEWING MACHINE OPERATOR SEMIAUTOMATIC CANNOT BE MADE A RESPONSIBLE SPRING COILER HAND. - We recommend that a responsible person stays with you overnight to take care of you. - You cannot stay in a hotel alone after outpatient surgery. You will not be permitted to have yoursurgery, if you do not have someone to take care of you. If you already have an Advance Directive, please fax a copy to [phone] or email to for it to be added to your chart. If you do not have an Advance Directive, you can find the appropriate form and more information at [email or web address]. We recommend that youcomplete the Advance Directive form found on the website and bring it with you the day of your surgery. It can be witnessed and scanned into your chart that day. documented in this [facility]Grand [facility]12[facility] History and physical note * Kait Montiel APRN.CNP - 02/01/2024 12:40 PM EST Images from the original note were not included. [facility] HISTORY AND PHYSICAL EXAMINATION SERVICE DATE: 02/01/2024 SERVICE TIME: 12:52 PM Patient has been identified by name and date of : Yes Reason for contact: PACC visit Accompanied by: Self This is a virtual visit using [employer] Supervisor Video Call. It required patient- provider interaction for the medical decision making as documented below. I have communicated my name and active licensure. The patient's identity and physical location wereverified at the time of this visit. Either the patient or their legal senior sales representative has been informed of the risks and benefits of and alternatives to treatment through a remote evaluation and consents to proceed with the evaluation remotely. PRIMARY CARE PHYSICIAN: Jerel Bennett APRN.CNP REASON FOR VISIT: Jennifer Tidwell is a 73 year old male who is scheduled for at the request of Dr. Erin Rivera for consultation. My final recommendation will be communicated back to the requesting physician by way ofshared medical record or letter. 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 Following with gastro and oncology Prostate cancer (HCC) Assessment: [place] 6/grade group 1 pT1c adenocarcinoma the prostate Follows with Dr. Busby at -- active surveillance currently Franco Activity Status Index: METS: Walk indoors, such as around the house (1.75 METs) Do light work around the house, such as dusting or washing dishes (2.70 METs) Take care of self; that is eating, dressing, bathing, using the toilet (2.75 METs) Walk a block or two on level ground (2.75 METs) Do moderate work around the house, such as vacuuming, sweeping floors, or carrying in groceries (3.50 METs) Do yardwork, such as raking leaves, weeding, or pushing a power mower (4.50 METs) Climb a flight of stairs or walk up a hill (5.50 METs) Do heavy work around the house, such as scrubbing floors, lifting or moving heavy furniture (8.00 METs) DASI Score: 31.45 Patient denies any chest pain or undue shortness of breath with the above physical activity. Clinical Frailty Scale: 3. Well, with treated comorbid disease STOP-Bang Score: STOP-Bang Score: (+ ALLISON- does not use CPAP ) [id number] Score: Age: 65-74 Sex: male Diabetes history: Yes [id number] Score: ANESTHESIA FINDINGS: Intubation History: No history of difficult intubation Significant Anesthesia Considerations: none Airway History: No history of difficult airway I - PHYSICAL EVALUATION AIRWAY Patient intubated: No. Tracheostomy tube not present Mallampati: II. TM distance: >3 FB. Neck ROM: full ROM without neurological symptoms. Mouth opening: adequate. Short neck: no. Thick neck: no DENTAL Dentures, upper: partial. Dentures, lower: partial. II - ANESTHESIA PLAN Anesthetic plan additional comments: *PACC/TCI - anesthesia choice. Beta Dalia Monitoring Plan Post Procedure Analgesic Plan Prepared for surgery: This patient is optimally prepared for surgery. CONSULTS: Patient does not require consults for optimization at this time. The Following Tests/Procedures Have Been Initiated: No orders of the defined types were placed in this encounter. Planned Anesthetic: Per anesthesia choice Subjective CHIEF COMPLAINT: Pre-op visit HPI: 73 year old male with gastric MALT associated with lymphoma seen on biopsy 02/17/2023. EGD with biopsy-negative for NHL on 07/24/[address] Rivera. Scheduled for repeat biopsy for evaluation REVIEW OF SYSTEMS: PAIN ASSESSMENT: General: No weight loss, malaise or fevers. Neuro: No history of TIA's, stroke, COUNTY SUPERVISOR tumor, impaired sensorium, hemiplegia, paraplegia or quadraplegia. No neurological symptoms or problems. Respiratory: No history of current cough or dyspnea, or pneumonia in the past 6 weeks. No history of respiratory/pulmonary symptoms or problems. + ALLISON - does not use CPAP Cardiovascular: Negative for Recent DE, CAD, Chest Pain Hx of AFIB during previous EGD GI: See HPI : + prostate cancer - monitored by urology Endocrine: Diabetes Mellitus with diet control Hematology: No history of bleeding or clotting disorder. Pt is not taking anti- coagulation or platelet medications. No history of hematological symptoms or problems. Oncology: See HPI Implanted Devices: No Psych: No history of psychiatric symptoms or problems. Marijuana use: No Musculoskeletal: Joint pain Skin: Negative for lesions, rash and itching. The patient has the following: ACTIVE PROBLEM LIST Allergic Rhinitis Renal Stone Fh: Diabetes Mellitus Htn (Hypertension) Hypogonadism Male Fatigue Family History of Prostate Cancer Allison (Obstructive Sleep Apnea) Impaired Fasting Glucose Other and Unspecified Hyperlipidemia Metabolic Syndrome Migraine With Visual Aura Corneal Foreign Body Haskins Neuroma, Right Capsulitis of Metatarsophalangeal (Mtp) Joint of Right Foot Pain in Right Foot Type 2 Diabetes Mellitus With Peripheral Neuropathy (Hcc) Onychomycosis Xerosis of Skin Platelets Decreased (Hcc) Pain in Toes of Both Feet Arthritis of Right Foot Equinus Contracture of Ankle Hypothyroidism Malt (Mucosa Associated Lymphoid Tissue) Prostate Cancer (Hcc) Covid Immunization Dates Overdue - Covid-19 Vaccine (2023- season) Never done No completion, postpone, frequency change, or communication history exists for this topic. PAST MEDICAL HISTORY Diagnosis Date Allergic rhinitis 10/18/2010 Atrial fibrillation (HCC) Diabetes mellitus type 2 (HCC) 02/20/2014 HTN (hypertension) 10/18/2010 Hyperlipidemia MALT lymphoma Gastric Migraine with visual aura 05/16/2012 Obstructive sleep apnea Cannot tolerate CPAP Renal stone 02/21/2008 PAST SURGICAL HISTORY Procedure Laterality Date EGD EXERCISE STRESS TEST WITH NUCLEAR IMAGES PANEL 02/20/2013 abnormal execise stress NUCLEAR EXERCISE STRESS TEST 02/20/2013 normal PAST SURGICAL HISTORY OF 2 arthroscopies of the L knee, and open surgeries for intrinsic derangement PAST SURGICAL HISTORY OF removal of renal stone ( not sure of the method) PAST SURGICAL HISTORY OF fibula-tibiaotomy of the L PAST SURGICAL HISTORY OF right knee arthroscopy and reconstruction RECONSTRUCTION ROTATOR CUFF AVULSION CHRONIC 07/21/2010 left FAMILY HISTORY Problem Relation Age of Onset Leukemia Mother Cancer Mother removal of a large tumor from the abdomen Prostate Cancer Father to the bone. at age 84 Diabetes Father Carotid Disease Father Diabetes Sister No Known Problems Sister Diabetes Brother No Known Problems Maternal Grandmother No Known Problems Maternal Grandfather No Known Problems Paternal Grandmother No Known Problems Paternal Grandfather No Known Problems Son No Known Problems Son Social History Tobacco Use Smoking status: Never Smokeless tobacco: Never Vaping Use Vaping status: Never Used Substance Use Topics Alcohol use: Not Currently Alcohol/week: 2.0 standard drinks of alcohol Types: 2 Standard drinks or equivalent per week Drug use: Never Prior to Admission medications as of 02/01/24 1250 Medication Sig Last Dose Taking cholecalciferol, vitD3,/vit K2 (VITAMIN D3-VITAMIN K2 ORAL) Take by mouth. Yes ascorbic acid (VITAMIN C ORAL) Take by mouth. Yes C/sourcherry/celery/grape seed (TART ACOSTA ORAL) Take by mouth. Yes BLUEBERRY Yes APPLE CIDER VINEGAR ORAL Take by mouth. Yes VITAMIN B COMPLEX ORAL Take by mouth. Yes levothyroxine (SYNTHROID) 50 mcg tablet Take 50 mcg by mouth once daily. Yes OTC NUTRITIONAL SUPPLEMENT once daily. QC Turmeric Apolic Acid Bererdine with Cylon Cinnamon Zinc MCT Oil Yes Medication Comments documented by Nelia Whatley MA on 05/29/2014 at 1605. saline nasal spray, multi vitamin plus minerals and herbs ALLERGIES Allergen Reactions Percocet [Oxycodone* Intolerance Ultram [Tramadol Hc* Intolerance Vicodin [Hydrocodon* Other: See Comments Objective PHYSICAL EXAM: VITALS: Resp 18 Ht 5' 9 (1.75m) Wt 152 lb (68.9kg) BMI 22.44 kg/(m^2). VIDEO EXAM: (if completed, performed via video enabled technology) GENERAL: alert and appropriate, in no distress SKIN: no rash noted EYES: no injection and visual acuity is grossly normal OROPHARYNX: moist mucus membranes NECK: full ROM, no cervical LNs noted RESPIRATORY: breathing non-labored CHEST: equal chest rise with normal respiratory effort HEART: No JVD, edema or cyanosis ABDOMEN: soft and non-tender NEUROLOGIC: no obvious deficit Diagnostic tests reviewed for today's visit: Hemoglobin A1C (%) Date Value 06/21/2014 7.5 08/14/2012 6.0 Holter monitor Type of Monitor: Extended Monitoring-Zio Patch Enrollment Dates: 06/18/2023-07/02/2023 IRHYTHM FINDINGS: Patient had a min HR of 40 bpm, max HR of 164 bpm, and avg HR of 61 bpm. Predominant underlying rhythm was Sinus Rhythm. First Degree AV Block was present. 20 Supraventricular Tachycardia runs occurred, the run with the fastest interval lasting 12 beats with a max rate of 164 bpm,the longest lasting 13.9 secs with an avg rate of 106 bpm. Supraventricular Tachycardia was detected within +/- 45 seconds of symptomatic patient event(s). Isolated SVEs were occasional (2.0%, 46039), SVE Couplets were rare (<1.0%, 2088), and SVE Triplets were rare (<1.0%, 1841). Isolated VEswere rare (<1.0%), and no VE Couplets or VE Triplets were present. EKG Procedure Date : Jun 13 2023 09:18:36 Edit Date : Jun 19 2023 12:58:36 Diagnosis: SINUS BRADYCARDIA WITH SINUS ARRHYTHMIA OTHERWISE NORMAL ECG Recent Results (from the past 8760 hour(s)) ECG COMPLETE Collection Time: 06/13/23 9:18 AM Result Value Ventricular Rate 53 Atrial Rate 53 P-R Interval 184 QRS Duration 102 QT Interval 434 QTC Calculation (Bazett) 407 Calculated P Wilton 40 Calculated R Wilton 9 Calculated T Wilton 11 Impression SINUS BRADYCARDIA WITH SINUS ARRHYTHMIA OTHERWISE NORMAL ECG Confirmed by VIVIANA KERR MD ([id number]) on 06/19/2023 12:58:34 PM Recent Results (from the past 78233 hour(s)) ECHO Collection Time: 06/13/23 2:43 PM Impression CONCLUSIONS: - Technically difficult exam due to body habitus. - Exam indication: Murmur - The left ventricle is normal in size. Left ventricular systolic function is normal. EF = 55 5% (2D biplane) - The right ventricle is dilated. Right ventricular systolic function is normal. - There is moderate (2+) tricuspid valve regurgitation caused by annular dilatation. - There is mild aortic stenosis. - The patient has not had a prior [facility] echocardiographic exam for comparison. * * * Final * * * Instructions Given to Patient: Instructions located in the after visit summary. Patient given verbal and written preop instructions and voices comprehension and compliance. SIGNATURE: Kait Montiel APRN.CNP PATIENT NAME: Jennifer Tidwell DATE: 02/01/2024 [facility] History and physical note* Kait Montiel APRN.CNP - 02/01/2024 12:40 PM EST Images from the original note were not included. [facility]est[facility] HISTORY AND PHYSICAL EXAMINATION SERVICE DATE: 02/01/2024 SERVICE TIME: 12:52 PM Patient has been identified by name and date of : Yes Reason for contact: PACC visit Accompanied by: Self This is a virtual visit using [employer] Supervisor Video Call. It required patient- provider interaction for the medical decision making as documented below. I have communicated my name and active licensure. The patient's identity and physical location wereverified at the time of this visit. Either the patient or their legal senior sales representative has been informed of the risks and benefits of and alternatives to treatment through a remote evaluation and consents to proceed with the evaluation remotely. PRIMARY CARE PHYSICIAN: Jerel Bennett APRN.CNP REASON FOR VISIT: Jennifer Tidwell is a 73 year old male who is scheduled for at the request of Dr. Erin Rivera for consultation. My final recommendation will be communicated back to the requesting physician by way ofshared medical record or letter. 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 Following with gastro and oncology Prostate cancer (HCC) Assessment: [place] 6/grade group 1 pT1c adenocarcinoma the prostate Follows with Dr. Busby at -- active surveillance currently Franco Activity Status Index: METS: Walk indoors, such as around the house (1.75 METs) Do light work around the house, such as dusting or washing dishes (2.70 METs) Take care of self; that is eating, dressing, bathing, using the toilet (2.75 METs) Walk a block or two on level ground (2.75 METs) Do moderate work around the house, such as vacuuming, sweeping floors, or carrying in groceries (3.50 METs) Do yardwork, such as raking leaves, weeding, or pushing a power mower (4.50 METs) Climb a flight of stairs or walk up a hill (5.50 METs) Do heavy work around the house, such as scrubbing floors, lifting or moving heavy furniture (8.00 METs) DASI Score: 31.45 Patient denies any chest pain or undue shortness of breath with the above physical activity. Clinical Frailty Scale: 3. Well, with treated comorbid disease STOP-Bang Score: STOP-Bang Score: (+ ALLISON- does not use CPAP ) [id number] Score: Age: 65-74 Sex: male Diabetes history: Yes [id number] Score: ANESTHESIA FINDINGS: Intubation History: No history of difficult intubation Significant Anesthesia Considerations: none Airway History: No history of difficult airway I - PHYSICAL EVALUATION AIRWAY Patient intubated: No. Tracheostomy tube not present Mallampati: II. TM distance: >3 FB. Neck ROM: full ROM without neurological symptoms. Mouth opening: adequate. Short neck: no. Thick neck: no DENTAL Dentures, upper: partial. Dentures, lower: partial. II - ANESTHESIA PLAN Anesthetic plan additional comments: *PACC/TCI - anesthesia choice. Beta Dalia Monitoring Plan Post Procedure Analgesic Plan Prepared for surgery: This patient is optimally prepared for surgery. CONSULTS: Patient does not require consults for optimization at this time. The Following Tests/Procedures Have Been Initiated: No orders of the defined types were placed in this encounter. Planned Anesthetic: Per anesthesia choice Subjective CHIEF COMPLAINT: Pre-op visit HPI: 73 year old male with gastric MALT associated with lymphoma seen on biopsy 02/17/2023. EGD with biopsy-negative for NHL on 07/24/[address] Rivera. Scheduled for repeat biopsy for evaluation REVIEW OF SYSTEMS: PAIN ASSESSMENT: General: No weight loss, malaise or fevers. Neuro: No history of TIA's, stroke, COUNTY SUPERVISOR tumor, impaired sensorium, hemiplegia, paraplegia or quadraplegia. No neurological symptoms or problems. Respiratory: No history of current cough or dyspnea, or pneumonia in the past 6 weeks. No history of respiratory/pulmonary symptoms or problems. + ALLISON - does not use CPAP Cardiovascular: Negative for Recent DE, CAD, Chest Pain Hx of AFIB during previous EGD GI: See HPI : + prostate cancer - monitored by urology Endocrine: Diabetes Mellitus with diet control Hematology: No history of bleeding or clotting disorder. Pt is not taking anti- coagulation or platelet medications. No history of hematological symptoms or problems. Oncology: See HPI Implanted Devices: No Psych: No history of psychiatric symptoms or problems. Marijuana use: No Musculoskeletal: Joint pain Skin: Negative for lesions, rash and itching. The patient has the following: ACTIVE PROBLEM LIST Allergic Rhinitis Renal Stone Fh: Diabetes Mellitus Htn (Hypertension) Hypogonadism Male Fatigue Family History of Prostate Cancer Allison (Obstructive Sleep Apnea) Impaired Fasting Glucose Other and Unspecified Hyperlipidemia Metabolic Syndrome Migraine With Visual Aura Corneal Foreign Body Haskins Neuroma, Right Capsulitis of Metatarsophalangeal (Mtp) Joint of Right Foot Pain in Right Foot Type 2 Diabetes Mellitus With Peripheral Neuropathy (Hcc) Onychomycosis Xerosis of Skin Platelets Decreased (Hcc) Pain in Toes of Both Feet Arthritis of Right Foot Equinus Contracture of Ankle Hypothyroidism Malt (Mucosa Associated Lymphoid Tissue) Prostate Cancer (Hcc) Covid Immunization Dates Overdue - Covid-19 Vaccine ( season) Never done No completion, postpone, frequency change, or communication history exists for this topic. PAST MEDICAL HISTORY Diagnosis Date Allergic rhinitis 10/18/2010 Atrial fibrillation (HCC) Diabetes mellitus type 2 (HCC) 02/20/2014 HTN (hypertension) 10/18/2010 Hyperlipidemia MALT lymphoma Gastric Migraine with visual aura 05/16/2012 Obstructive sleep apnea Cannot tolerate CPAP Renal stone 02/21/2008 PAST SURGICAL HISTORY Procedure Laterality Date EGD EXERCISE STRESS TEST WITH NUCLEAR IMAGES PANEL 02/20/2013 abnormal execise stress NUCLEAR EXERCISE STRESS TEST 02/20/2013 normal PAST SURGICAL HISTORY OF 2 arthroscopies of the L knee, and open surgeries for intrinsic derangement PAST SURGICAL HISTORY OF removal of renal stone ( not sure of the method) PAST SURGICAL HISTORY OF fibula-tibiaotomy of the L PAST SURGICAL HISTORY OF right knee arthroscopy and reconstruction RECONSTRUCTION ROTATOR CUFF AVULSION CHRONIC 07/21/2010 left FAMILY HISTORY Problem Relation Age of Onset Leukemia Mother Cancer Mother removal of a large tumor from the abdomen Prostate Cancer Father to the bone. at age 84 Diabetes Father Carotid Disease Father Diabetes Sister No Known Problems Sister Diabetes Brother No Known Problems Maternal Grandmother No Known Problems Maternal Grandfather No Known Problems Paternal Grandmother No Known Problems Paternal Grandfather No Known Problems Son No Known Problems Son Social History Tobacco Use Smoking status: Never Smokeless tobacco: Never Vaping Use Vaping status: Never Used Substance Use Topics Alcohol use: Not Currently Alcohol/week: 2.0 standard drinks of alcohol Types: 2 Standard drinks or equivalent per week Drug use: Never Prior to Admission medications as of 02/01/24 1250 Medication Sig Last Dose Taking cholecalciferol, vitD3,/vit K2 (VITAMIN D3-VITAMIN K2 ORAL) Take by mouth. Yes ascorbic acid (VITAMIN C ORAL) Take by mouth. Yes C/sourcherry/celery/grape seed (TART ACOSTA ORAL) Take by mouth. Yes BLUEBERRY Yes APPLE CIDER VINEGAR ORAL Take by mouth. Yes VITAMIN B COMPLEX ORAL Take by mouth. Yes levothyroxine (SYNTHROID) 50 mcg tablet Take 50 mcg by mouth once daily. Yes OTC NUTRITIONAL SUPPLEMENT once daily. QC Turmeric Apolic Acid Bererdine with Cylon Cinnamon Zinc MCT Oil Yes Medication Comments documented by Nelia Whatley MA on 05/29/2014 at 1605. saline nasal spray, multi vitamin plus minerals and herbs ALLERGIES Allergen Reactions Percocet [Oxycodone* Intolerance Ultram [Tramadol Hc* Intolerance Vicodin [Hydrocodon* Other: See Comments Objective PHYSICAL EXAM: VITALS: Resp 18 Ht 5' 9 (1.75m) Wt 152 lb (68.9kg) BMI 22.44 kg/(m^2). VIDEO EXAM: (if completed, performed via video enabled technology) GENERAL: alert and appropriate, in no distress SKIN: no rash noted EYES: no injection and visual acuity is grossly normal OROPHARYNX: moist mucus membranes NECK: full ROM, no cervical LNs noted RESPIRATORY: breathing non-labored CHEST: equal chest rise with normal respiratory effort HEART: No JVD, edema or cyanosis ABDOMEN: soft and non-tender NEUROLOGIC: no obvious deficit Diagnostic tests reviewed for today's visit: Hemoglobin A1C (%) Date Value 06/21/2014 7.5 08/14/2012 6.0 Holter monitor Type of Monitor: Extended Monitoring-Zio Patch Enrollment Dates: 06/18/2023-07/02/2023 IRHYTHM FINDINGS: Patient had a min HR of 40 bpm, max HR of 164 bpm, and avg HR of 61 bpm. Predominant underlying rhythm was Sinus Rhythm. First Degree AV Block was present. 20 Supraventricular Tachycardia runs occurred, the run with the fastest interval lasting 12 beats with a max rate of 164 bpm,the longest lasting 13.9 secs with an avg rate of 106 bpm. Supraventricular Tachycardia was detected within +/- 45 seconds of symptomatic patient event(s). Isolated SVEs were occasional (2.0%, 72482), SVE Couplets were rare (<1.0%, 2088), and SVE Triplets were rare (<1.0%, 1841). Isolated VEswere rare (<1.0%), and no VE Couplets or VE Triplets were present. EKG Procedure Date : Jun 13 2023 09:18:36 Edit Date : Jun 19 2023 12:58:36 Diagnosis: SINUS BRADYCARDIA WITH SINUS ARRHYTHMIA OTHERWISE NORMAL ECG Recent Results (from the past 8760 hour(s)) ECG COMPLETE Collection Time: 06/13/23 9:18 AM Result Value Ventricular Rate 53 Atrial Rate 53 P-R Interval 184 QRS Duration 102 QT Interval 434 QTC Calculation (Bazett) 407 Calculated P Wilton 40 Calculated R Wilton 9 Calculated T Wilton 11 Impression SINUS BRADYCARDIA WITH SINUS ARRHYTHMIA OTHERWISE NORMAL ECG Confirmed by USHA PAVON, VIVIANA ([id number]) on 06/19/2023 12:58:34 PM Recent Results (from the past 47243 hour(s)) ECHO Collection Time: 06/13/23 2:43 PM Impression CONCLUSIONS: - Technically difficult exam due to body habitus. - Exam indication: Murmur - The left ventricle is normal in size. Left ventricular systolic function is normal. EF = 55 5% (2D biplane) - The right ventricle is dilated. Right ventricular systolic function is normal. - There is moderate (2+) tricuspid valve regurgitation caused by annular dilatation. - There is mild aortic stenosis. - The patient has not had a prior CC echocardiographic exam for comparison. * * * Final * * * Instructions Given to Patient: Instructions located in the after visit summary. Patient given verbal and written preop instructions and voices comprehension and compliance. SIGNATURE: Kait Montiel APRN.RAGINI PATIENT NAME: Jennifer Tidwell DATE: 02/01/2024 documented [facility] History of Present illness Narrative* Yusuf Dean DPM - 12/15/2023 8:58 AM EDT Patient: Jennifer Tidwell Date: December 15, 2023 PCP: Jerel Bennett APRN.YARD CALLER Subjective: Jennifer Tidwell is a 72 year old male who presents with discolored, thickened, elongatedtoenails. He states the nails are causing pain and pressure in shoe gear, and is unable to safely manage these nails on their own. Patient also follows up for capsulitis and haskins neuroma right foottoday. Patient states he has folllowed all home instructions however did not fill the topical medication, and state the pain has not improved. Patient admits to regular care with his PCP and states his fasting blood glucose was 123mg/dL this morning. Patient denies paresthesias in the bl feet. Patient admits to n/v/f/c/sob/cp/abdominal pain, and denies any other lower extremity complaints. Past Medical History: PAST MEDICAL HISTORY Diagnosis Date Allergic rhinitis 10/18/2010 Atrial fibrillation (HCC) Diabetes mellitus type 2 (HCC) 02/20/2014 HTN (hypertension) 10/18/2010 Hyperlipidemia MALT lymphoma Gastric Migraine with visual aura 05/16/2012 Obstructive sleep apnea Cannot tolerate CPAP Renal stone 02/21/2008 Past Surgical History: PAST SURGICAL HISTORY Procedure [...] AVULSION CHRONIC 07/2010 left Allergies: Percocet [Oxycodone-Acetaminophen], Ultram [Tramadol Hcl], and Vicodin [Hydrocodone-Acetaminophen] Current Outpatient Medications Medication Sig cholecalciferol, vitD3,/vit K2 (VITAMIN D3-VITAMIN K2 ORAL) Take by mouth. ascorbic acid (VITAMIN C ORAL) Take by mouth. C/sourcherry/celery/grape seed (TART ACOSTA ORAL) Take by mouth. BLUEBERRY APPLE CIDER VINEGAR ORAL Take by mouth. VITAMIN B COMPLEX ORAL Take by mouth. levothyroxine (SYNTHROID) 50 mcg tablet Take 50 mcg by mouth once daily. OTC NUTRITIONAL SUPPLEMENT once daily. QC Turmeric Apolic Acid Bererdine with Cylon Cinnamon Zinc MCT Oil No current facility-administered medications for this visit. [...] weakness and headaches. Objective: Physical Exam Temp 36.2 C (97.2 F) Ht 175.3 cm (5' 9) Wt 71.7 kg (158 lb) BMI 23.33 kg/m BMI 23.33 kg/(m^2) DP and PT arteries palpable 1+/4+. [...] the foot and ankle is 5/5 bilateral. Moderate pain on palpation with focal edema sub 3rd and 4th MPJ right foot. Minimal pain on palpation 3rd interspace between 3rd and 4th Metatarsals distally right foot. Ankle equinus deformity is moderate and noted to Both feet. Unable to dorsiflex the footat the level of the ankle joint relative to the leg 10 degrees with knee straight. Unable to dorsiflex the foot at the level of the ankle joint relative to the leg 10 degrees with knee bent to 90 degrees. ] Toenails 1-5 bl are discolored, elongated, and thickened, and clinically consistent with onychomycosis. Webspaces 1-4 bl are clean, dry, and intact. No interdigital maceration, no masses, no open lesions. XRAY RIGHT FOOT 10/03/2023 IMPRESSION: 1. No acute radiographic abnormality of the bilateral feet Procedures: - Toenails 1-5 bl sharply debrided in length and thickness without incident: Meets Q9 Hemoglobin A1C (%) Date Value 06/21/2014 7.5 Assessment: Onychomycosis (primary encounter diagnosis) Xerosis of skin Capsulitis of metatarsophalangeal (mtp) joint of right foot Haskins neuroma, right Pain in right foot Pain in toes of both feet Equinus contracture of ankle Type 2 diabetes mellitus with peripheral neuropathy (hcc) Plan: -patient examined and evaluated -patient educated of the etiology of nail [...] occur. Patient is to continue with daily lowerextremity inspections and tight blood glucose control. -Patient instructed to use OTC lotion to bl lower extremities daily for xerosis management, and avoid application to webspace's -Patient instructed not to go barefoot and to wear good supportive shoe gear. -patient again educated on the etiology and treatment of neuroma and capsulitis -radiographs reviewed and no significant abnormalities noted -patient capsulitis and neuroma pain continues -patient instructed to continue rest, ice, elevate PRN -defers EBM C4 topical broad spectrum CBD due to cost -patient defers injection at this time -start stretching as instructed today for ankle equinus -patient to continue diabetic shoes with custom diabetic insoles, additional met pad added -patient WBAT -patient instructed not to go barefoot -Instructed to contact our office if any lower extremity problems develop before next visit Return in about 9 weeks (around 02/16/2024). Yusuf Dean DPM documented in this [facility]Grand [facility]10[facility] History of Present illness Narrative* Yusuf Busby MD - 12/07/2023 11:30 AM EDT HPI 72 y.o. 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 Family history includes father had prostate ca at 83 and bone marrow ca. Denies any urinary concerns. He is diabetic. PVR 93cc. ED are adequate, on and off, would like to try medication for this. Will start him on Sildenafil 100mg. Seen for flbdpam48/29/22. 03/24/22 - Did not get an MRI because he is claustrophobic. ExoDx was obtained instead. 03/31/22 - seen over V. [place] currently ExoDx 03/2021 PSA history 03/2022 - 4.1 12/2021 - 7.03 (11% free) 10/2021 - 5.96 01/05/2023 - seen today via v for a psa check. Doing well. 07/19/23 - seen over to review 6mo PSA. 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 Also now with afib. 09/07/23 - seen back over V to discuss recent PSA. No blood thinners; afib was worked up with a Holter monitor, echo and no anticoagulation recommended. 10/18/23 -here for biopsy. Risks, effects, alternatives discussed. He did receive IM ceftriaxone. Bxaborted / patient discomfort 11/14/23 - TP prostate bx in OR with Dr. Gale. Path - Gl 6 L posterior base (5% of specimen), L paramedian base (50% of specimen), L paramedian apex (5% of specimen) 12/07/23 -here to discuss pathology. Did well with biopsy. Lab Results Component Value Date PSA 6.57 (H) 09/05/2023 PSA 6.17 (H) 07/18/2023 PSA 5.27 (H) 11/18/2022 PSA 4.11 (H) 03/24/2022 Current Medications: Current Outpatient Medications Medication Sig Dispense Refill APPLE CIDER VINEGAR ORAL Take by mouth. ascorbic acid (Vitamin C) 1,000 mg tablet Take 1 tablet (1,000 mg) by mouth once daily. docosahexaenoic acid/epa (FISH OIL ORAL) Take by mouth. levothyroxine (Synthroid, Levoxyl) 50 mcg tablet Take 1 tablet (50 mcg) by mouth early in the morning.. Take on an empty stomach at the same time each day, either 30 to 60 minutes prior to breakfast sildenafil (Viagra) 100 mg tablet Take 1 tablet (100 mg) by mouth once daily. 1 HOUR BEFORE NEEDED TURMERIC ORAL Take by mouth. vitamin E 450 mg (1000 unit) capsule Take 100 Units by mouth once daily. No current facility-administered medications for this visit. Active Problems: Jennifer Tidwell is a 72 y.o. male with the following Problems and Medications. Patient Active Problem List Diagnosis Diabetes 1.5, managed as type 2 (Multi) Elevated PSA Erectile dysfunction Hypothyroidism Current Outpatient Medications Medication Sig Dispense Refill APPLE CIDER VINEGAR ORAL Take by mouth. ascorbic acid (Vitamin C) 1,000 mg tablet Take 1 tablet (1,000 mg) by mouth once daily. docosahexaenoic acid/epa (FISH OIL ORAL) Take by mouth. levothyroxine (Synthroid, Levoxyl) 50 mcg tablet Take 1 tablet (50 mcg) by mouth early in the morning.. Take on an empty stomach at the same time each day, either 30 to 60 minutes prior to breakfast sildenafil (Viagra) 100 mg tablet Take 1 tablet (100 mg) by mouth once daily. 1 HOUR BEFORE NEEDED TURMERIC ORAL Take by mouth. vitamin E 450 mg (1000 unit) capsule Take 100 Units by mouth once daily. No current facility-administered medications for this visit. PMH: Past Medical History: Diagnosis Date Atrial fib/flutter, transient (Multi) DM (diabetes mellitus) (Multi) Hypothyroidism Lymphoma (Multi) PSH: Past Surgical History: Procedure Laterality Date CARPAL TUNNEL RELEASE Bilateral CATARACT EXTRACTION Bilateral COLONOSCOPY ELBOW Right ESOPHAGOGASTRODUODENOSCOPY KNEE Left x4 KNEE Right x3 LITHOTRIPSY ROTATOR CUFF REPAIR Left FMH: No family history on file. SHx: Social History Tobacco Use Smoking status: Never Smokeless tobacco: Never Substance Use Topics Alcohol use: Not Currently Drug use: Never Allergies: Allergies Allergen Reactions Hydrocodone Anxiety Oxycodone-Acetaminophen Anxiety Tramadol Anxiety Assessment/Plan We spent a good deal time discussing his diagnosis. 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 He has low-volume, low-grade disease. Overall very low risk. Discussed AUA guideline on the treatment and management of clinically localized prostate cancer. Recommend active surveillance as preferred management option. Discussed protocol. Discussed very low risk of metastatic spread during appropriate active surveillance. Will start with PSA in 6 months. Ideally would get an MRIat some point but given his claustrophobia will consider this under anesthesia if indicated by his PSA trend. Follow-up in 6 months with PSA prior. documented in this [facility] Work Phone: 1(554) 566-888809-23-2024 Hospital Discharge instructions* Discharge Instructions* Anuja Phillips MD - 11/13/2023 8:28 PM EDT Call [phone] during regular daytime business hours (8:00 am - 5:00 pm) and after 5:00 pm and ask for the Urology Resident with any questions or concerns. If it is a life-threatening situation, proceed to the nearest emergency department. Thank you for the opportunity to care for you today. Your health and healing are very important to us. We hope we made you feel as comfortable as possible and are committed to your recovery and continued well-being. The following is a brief overview of your prostate biopsy today. Some of the information contained on this summary may be confidential. This information should be kept in your records and should be shared with your regular doctor. Physicians: Dr. Gale Procedure performed: prostate biopsy Pending results: prostate pathology results What to Expect During your Recovery and Home Care Anesthesia Side Effects You received anesthesia today. You may feel sleepy, tired, or have a sore throat. You may also feel drowsiness, dizziness, or inability to think clearly. For your safety, do not drive, drink alcoholic beverages, take any unprescribed medication or make any important decisions for 24 hours. A responsible adult should be with you for 24 hours. Activity and Recovery No heavy lifting or strenuous activity for several days. Avoid activities that put pressure on yourrectal area. Do not have sex for a few days. Pain Control Unfortunately, you may experience pain after your procedure. Adequate management can include ice packs and over the counter Tylenol. Do not take more then 4,000mg of Tylenol in a 24-hour period. Nausea/Vomiting Clear liquids are best tolerated at first. Start slow, advance your diet as tolerated to normal foods. Avoid spicy, greasy, heavy foods at first. Also, you may feel nauseous or like you need to vomitif you take any type of medication on an empty stomach. Call your physician if you are unable to eat or drink and have persistent vomiting. Signs of Bleeding Minor bleeding or drainage may occur from your rectum however, excessive or consistent bleeding should be reported to your surgeon. Excessive bleeding is defined as blood that is dripping from rectum, soaking through your pants, and is ketchup colored, thick with possible blood clots. Consistent isdefined as bleeding that does not stop. You may have blood in your poop, urine and semen for several weeks. Treatment/wound care: It is okay to shower 24 hours after time of surgery. Signs of Infection Signs of infection can include fever, burning sensation with urination, frequency, urgency or severe pain. If you see any of these occur, please contact your doctor's office at [phone]. Any fever higher than 100.4, especially if associated with an ill feeling, abdominal pain, chills, or nauseashould be reported to your surgeon. Assist in bowel movements/urination Increase fiber in diet Urination should occur within 6 hours of anesthesia. Increase water (6 to 8 glasses) Increase walking If you have tried these methods and your bladder still feels full and you cannot use the bathroom, please go to your nearest Emergency room. Additional Instructions: Try not to strain when going to the bathroom. Do not hold your urine. We will go over your biopsy results at your follow up appointment. It takes 7-10 business days for the results to come back. documented in this [facility] Work Phone: 1(855) 538-976009-23-2024 History of Present illness Narrative* Yusuf Dean, DPAmina - 11/13/2023 9:04 AM EDT Patient: Jennifer Tidwell Date: November 13, 2023 PCP: Jerel Bennett APRN.YARD CALLER Subjective: Jennifer Tidwell is a 72 year old male who presents for follow up pain to the right foot.Patient states he has followed all home instructions with exception of using topical medication from EBM, however has no significant improvement. Patient admits to regular care with his PCP and states his fasting blood glucose was 98mg/dL this morning. Patient denies paresthesias in the bl feet. Patient admits to n/v/f/c/sob/cp/abdominal pain, and denies any other lower extremity complaints. Past Medical History: PAST MEDICAL HISTORY Diagnosis Date Allergic rhinitis 10/18/2010 Atrial fibrillation (HCC) Diabetes mellitus type 2 (HCC) 02/20/2014 HTN (hypertension) 10/18/2010 Hyperlipidemia MALT lymphoma (HCC) Gastric Migraine with visual aura 05/16/2012 Obstructive sleep apnea Cannot tolerate CPAP Renal stone 02/21/2008 Past Surgical History: PAST SURGICAL HISTORY Procedure [...] AVULSION CHRONIC 07/2010 left Allergies: Percocet [Oxycodone-Acetaminophen], Ultram [Tramadol Hcl], and Vicodin [Hydrocodone-Acetaminophen] Current Outpatient Medications Medication Sig cholecalciferol, vitD3,/vit K2 (VITAMIN D3-VITAMIN K2 ORAL) Take by mouth. ascorbic acid (VITAMIN C ORAL) Take by mouth. C/sourcherry/celery/grape seed (TART ACOSTA ORAL) Take by mouth. BLUEBERRY APPLE CIDER VINEGAR ORAL Take by mouth. VITAMIN B COMPLEX ORAL Take by mouth. levothyroxine (SYNTHROID) 50 mcg tablet Take 50 mcg by mouth once daily. OTC NUTRITIONAL SUPPLEMENT once daily. QC Turmeric Apolic Acid Bererdine with Cylon Cinnamon Zinc MCT Oil No current facility-administered medications for this visit. [...] C (98.6 F) Ht 175.3 cm (5' 9) Wt 71.7 kg (158 lb) BMI 23.33 kg/m BMI 23.33 kg/(m^2) DP and PT arteries palpable 1+/4+. [...] the foot and ankle is 5/5 bilateral. Moderate pain on palpation with focal edema sub 3rd and 4th MPJ right foot. Minimal pain on palpation 3rd interspace between 3rd and 4th Metatarsals distally right foot. Toenails 1-5 bl are discolored, moderately elongated, and thickened, and clinically consistent withonychomycosis. Webspaces 1-4 bl are clean, dry, and intact. No interdigital maceration, no masses, no open lesions. XRAY BL FOOT 10/03/2023: IMPRESSION: 1. No acute radiographic abnormality of the bilateral feet Procedures: -Prescription for EBM - C5 broad spectrum topical CBD - felt metatarsal pads added to underside of custom diabetic insert in shoes for additional offloading Hemoglobin A1C (%) Date Value 06/21/2014 7.5 Assessment: Capsulitis of metatarsophalangeal (mtp) joint of right foot (primary encounter diagnosis) Haskins neuroma, right Xerosis of skin Pain in right foot Type 2 diabetes mellitus with peripheral neuropathy (hcc) Plan: -patient examined and evaluated -patient capsulitis and neuroma pain continue to be present -radiographs reviewed with patient and no arthritis -patient instructed to continue rest, ice, elevate PRN -start EBM C5 topical broad spectrum CBD as prescribed -patient to continue diabetic shoes with custom diabetic insoles -patient WBAT -patient instructed not to go barefoot -consider injection if no improvement -Instructed to contact our office if any lower extremity problems develop before next visit Return in about 4 weeks (around 12/11/2023). Yusuf Dean DPM documented in this [facility]Grand [facility] History of Present illness Narrative* Yusuf Busby MD - 10/18/2023 11:30 AM EDT HPI 72 y.o. male being seen with the following problem list: Problem list: 1.Elevated PSA Was put on cipro 2020 when PSA was initially high. Family history includes father [...] was obtained instead. 03/31/22 - seen over THV. [place] currently ExoDx 03/2021 PSA history 03/2022 - 4.1 12/2021 - 7.03 (11% free) 10/2021 - 5.96 01/05/2023 - seen today via thv for a psa check. Doing well. 07/19/23 - seen over th to review 6mo PSA. 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 Also now with afib. 09/07/23 - seen back over THV to discuss recent PSA. No blood thinners; afib was worked up with a Holter monitor, echo and no anticoagulation recommended. 10/18/23 -here for biopsy. Risks, effects, alternatives discussed. He did receive IM ceftriaxone. Lab Results Component Value Date PSA 6.57 (H) 09/05/2023 PSA 6.17 (H) 07/18/2023 PSA 5.27 (H) 11/18/2022 PSA 4.11 (H) 03/24/2022 Current Medications: Current Outpatient Medications Medication Sig Dispense Refill sildenafil (Viagra) 100 mg tablet Take 1 tablet (100 mg) by mouth once daily. 1 HOUR BEFORE NEEDED No current facility-administered medications for this visit. Active Problems: Jennifer Tidwell is a 72 y.o. male with the following Problems and Medications. Patient Active Problem List Diagnosis Diabetes 1.5, managed as type 2 (Multi) Elevated PSA Erectile dysfunction Hypothyroidism Current Outpatient Medications Medication Sig Dispense Refill sildenafil (Viagra) 100 mg tablet Take 1 tablet (100 mg) by mouth once daily. 1 HOUR BEFORE NEEDED No current facility-administered medications for this visit. PMH: No past medical history on file. PSH: No past surgical history on file. FMH: No family history on file. SHx: Allergies: Allergies Allergen Reactions Oxycodone-Acetaminophen Unknown Procedure: TRUS Guided Biopsy of the prostate He was counseled on his options and elected to have a transrectal ultrasound- guided prostate biopsy. He understood the risks of the procedure to include but not be limited to bleeding, pain, infection, urosepsis, impotence, difficulties with urination, retention, false negative result and need for further procedures. Procedure: 1. Transrectal ultrasound of the prostate and seminal vesicles (14619) - reduced services 2/2 aborting procedure After probe was placed, the patient was not comfortable and elected to have the procedure aborted and reattempted in the operating room under sedation. Assessment/Plan Aborted biopsy. Will follow-up with Dr. Gale for transperineal biopsy in the operating room under anesthesia. Will be seen 2 weeks afterwards for pathology and next steps. Scribe Attestation By signing my name below, ILuz Elena , Scribe attest that this documentation has been prepared under the direction and in the presence of Yusuf Busby MD. documented in this [facility] Work Phone: [phone]) 570-334608-13-2024 NoteHNO ID: [id number] Author: MAIDA DAVIS RT(Babar) Service: ? Author Type: Technologist Type: Progress Notes Filed: 10/03/2023 10:59 Note Text: Radiology Service Progress Note PATIENT NAME: Jennifer Tidwell DATE OF SERVICE: October 03, 2023 TIME: 10:58 AM PATIENT IDENTITY VERIFICATION COMPLETED USING TWO (2) IDENTIFIERS: Name and Date of confirmed by patient verbally. FALL SCREENING: Has the patient had 2 falls in the last year or 1 fall with injury or currently using an Ambulatory Assistive Device (Walker, Cane, Wheelchair, Crutches, etc.)? Yes, Patient High Risk for Falls What interventions were put in place to prevent falls during this visit? [place] Risk Wristband Applied, Instructed Patient to Call for Help if Needed, Increased Observations by Caregivers, and unsteady gait PATIENT GENDER DATA: Male PATIENT RELEVANT IMPLANT DATA REVIEWED: Not Applicable PATIENT PRESENTS WITH AN IMPLANTABLE OR ATTACHED RIG HAND: No RADIOLOGY DEPARTMENT: General X-ray: Exam(s) Completed: Lower Extremity X-Ray(s): Foot, Bilateral and Wt. Bearing PERIPHERAL IV DATA: Not applicable SIGNED BY: RT Layo(R) October 03, 2023 10:58 [facility]08-13-2024 History of Present illness Narrative* Maida Davis RT(R) - 10/03/2023 10:58 AM EDT Radiology Service Progress Note PATIENT NAME: Jennifer Tidwell DATE OF SERVICE: October 03, 2023 TIME: 10:58 AM PATIENT IDENTITY VERIFICATION COMPLETED USING TWO (2) IDENTIFIERS: Name and Date of confirmedby patient verbally. FALL SCREENING: Has the patient had 2 falls in the last year or 1 fall with injury or currently using an Ambulatory Assistive Device (Walker, Cane, Wheelchair, Crutches, etc.)? Yes, Patient High Riskfor Falls What interventions were put in place to prevent falls during this visit? [place] Risk Wristband Applied, Instructed Patient to Call for Help if Needed, Increased Observations by Caregivers, and unsteady gait PATIENT GENDER DATA: Male PATIENT RELEVANT IMPLANT DATA REVIEWED: Not Applicable PATIENT PRESENTS WITH AN IMPLANTABLE OR ATTACHED RIG HAND: No RADIOLOGY DEPARTMENT: General X-ray: Exam(s) Completed: Lower Extremity X- Ray(s): Foot, Bilateral and Wt. Bearing PERIPHERAL IV DATA: Not applicable SIGNED BY: RT Layo(R) October 03, 2023 10:58 AM documented in this encounterGrand Lake [facility]08-[facility] History of Present illness Narrative* Yusuf Dean DPM - 10/03/2023 9:02 AM EDT Patient: Jennifer Tidwell Date: October 03, 2023 PCP: Jerel Bennett APRN.YARD CALLER Subjective: Jennifer Tidwell is a 72 year old male who presents with discolored, thickened, elongatedtoenails. He states the nails are causing pain and pressure in shoe gear, and is unable to safely manage these nails on their own. Patient also complains of pain to the right foot, stating this comesand goes, denies any injury or treatments. Patient admits to regular care with his PCP and states hi s fasting blood glucose was 126mg/dL this morning. Patient denies paresthesias in the bl feet. Patient admits to n/v/f/c/sob/cp/abdominal pain, and denies any other lower extremity complaints. Past Medical History: PAST MEDICAL HISTORY 10/18/2010: Allergic rhinitis No date: Atrial fibrillation (HCC) 02/20/2014: Diabetes mellitus type 2 (HCC) 10/18/2010: HTN (hypertension) No date: Hyperlipidemia No date: MALT lymphoma (HCC) Comment: Gastric 05/16/2012: Migraine with visual aura No date: Obstructive sleep apnea Comment: Cannot tolerate CPAP 02/21/2008: Renal stone Past Surgical History: PAST SURGICAL HISTORY 2014: EXERCISE STRESS TEST WITH NUCLEAR IMAGES PANEL Comment: abnormal execise stress 2014: NUCLEAR EXERCISE STRESS TEST Comment: normal No date: PAST SURGICAL HISTORY OF Comment: 2 arthroscopies of the L knee, and open surgeries for intrinsic derangement No date: PAST SURGICAL HISTORY OF Comment: removal of renal stone ( not sure of the method) No date: PAST SURGICAL HISTORY OF Comment: fibula-tibiaotomy of the L No date: PAST SURGICAL HISTORY OF Comment: right knee arthroscopy and reconstruction 07/2010: RECONSTRUCTION ROTATOR CUFF AVULSION CHRONIC Comment: left Allergies: Percocet [Oxycodone-Acetaminophen], Ultram [Tramadol Hcl], and Vicodin [Hydrocodone-Acetaminophen] Current Outpatient Medications Medication Sig cholecalciferol, vitD3,/vit K2 (VITAMIN D3-VITAMIN K2 ORAL) Take by mouth. ascorbic acid (VITAMIN C ORAL) Take by mouth. C/sourcherry/celery/grape seed (TART ACOSTA ORAL) Take by mouth. BLUEBERRY APPLE CIDER VINEGAR ORAL Take by mouth. VITAMIN B COMPLEX ORAL Take by mouth. levothyroxine (SYNTHROID) 50 mcg tablet Take 50 mcg by mouth once daily. OTC NUTRITIONAL SUPPLEMENT once daily. QC Turmeric Apolic Acid Bererdine with Cylon Cinnamon Zinc MCT Oil No current facility-administered medications for this visit. [...] syncope, weakness and headaches. Objective: Physical Exam Ht 175.3 cm (5' 9) Wt 71.7 kg (158 lb) BMI 23.33 kg/m BMI 23.33 kg/(m^2) DP and PT arteries palpable 1+/4+. [...] the foot and ankle is 5/5 bilateral. Moderate pain on palpation with focal edema sub [...] length and thickness without incident: Meets Q9 -Order xray right foot 3 view -Prescription for EBM - C4 broad spectrum topical CBD Hemoglobin A1C (%) Date Value 06/21/2014 7.5 Assessment: Onychomycosis (primary encounter diagnosis) Xerosis of skin Arthritis of right foot Pain in right foot Pain in toes of both feet Type 2 diabetes mellitus with peripheral neuropathy (hcc) Plan: -patient examined and evaluated -patient educated of the etiology of nail [...] occur. Patient is to continue with daily lowerextremity inspections and tight blood glucose control. -Patient instructed to use OTC lotion to bl lower extremities daily for xerosis management, and avoid application to webspace's -Patient instructed not to go barefoot and to wear good supportive shoe gear. -patient capsulitis and neuroma pain worsening and suspect arthritis in the joints. -radiographs ordered for further workup -patient instructed to continue rest, ice, elevate PRN -start EBM C4 topical broad spectrum CBD -patient to continue diabetic shoes with custom diabetic insoles -patient WBAT -patient instructed not to go barefoot -Instructed to contact our office if any lower extremity problems develop before next visit Return in about 9 weeks (around 12/05/2023). Yusuf Dean DPM documented in this encounterGrand [facility]07-25-2024 Telephone encounter Note * Telephone Encounter - Latisha Webster RN - 09/14/2023 12:40 PM EDT [facility] COORDINATION TELEPHONE ENCOUNTER CC returned patient's call to address request for letter supporting medical necessity for anesthesia for most recent EGD. Number given to patient for endoscopy to speak with their billing team. Staffmessage sent to Dr. Rivera to request a letter of medical necessity. VALENTINO Velázquez/[facility] Surgical Tight Barrel Inspector [facility]07-25-2024 Miscellaneous Notes* Telephone Encounter - Latisha Webster RN - 09/14/2023 12:40 PM EDT [facility] COORDINATION TELEPHONE ENCOUNTER CC returned patient's call to address request for letter supporting medical necessity for anesthesia for most recent EGD. Number given to patient for endoscopy to speak with their billing team. Staffmessage sent to Dr. Rivera to request a letter of medical necessity. Latisha DUONG, RN PRISCILA/[facility] Surgical Tight Barrel Inspector * Telephone Encounter - Rajesh Ramos - 09/12/2023 1:10 PM EDT Pt called state that insurance advise him that they was not going to pay for the anesthesia and he needs to get a not from Dr. Rivera office say when he needed anesthesia. Return call [phone] documented in this encounterGrand [facility]07-23-2024 Telephone encounter Note * Telephone Encounter - Rajesh Ramos - 09/12/2023 1:10 PM EDT Pt called state that insurance advise him that they was not going to pay for the anesthesia and he needs to get a not from Dr. Rivera office say when he needed anesthesia. Return call [phone] [facility]07-19-2024 History of Present illness Narrative* Katt Jimenez DPM - 09/08/2023 2:44 PM EDT Patient: Jennifer Tidwell Date: September 08, 2023 PCP: Jerel Bennett APRN.YARD CALLER Last visit date: 04/13/23 Subjective: Jennifer Tidwell is a 72 year old Type 2 diabetic male who is presenting to the office today to establish Diabetic Lower Extremity Care. Patient has regular care established with a primary care physician. Patient states he has significant difficulty ambulating in stores due to significant arthritis in lower extremities and severe neuropathy causing balance issues. Patient admits to a numbness , tingling , and burning sensation in the feet. Patient admits to previous ulcerations or slow healing wounds. Past Medical History: PAST MEDICAL HISTORY Diagnosis Date Allergic rhinitis 10/18/2010 Atrial fibrillation (HCC) Diabetes mellitus type 2 (HCC) 02/20/2014 HTN (hypertension) 10/18/2010 Hyperlipidemia MALT lymphoma (HCC) Gastric Migraine with visual aura 05/16/2012 Obstructive sleep apnea Cannot tolerate CPAP Renal stone 02/21/2008 Past Surgical History: PAST SURGICAL HISTORY Procedure [...] AVULSION CHRONIC 07/2010 left Allergies: Percocet [Oxycodone-Acetaminophen], Ultram [Tramadol Hcl], and Vicodin [Hydrocodone-Acetaminophen] Current Outpatient Medications Medication Sig cholecalciferol, vitD3,/vit K2 (VITAMIN D3-VITAMIN K2 ORAL) Take by mouth. ascorbic acid (VITAMIN C ORAL) Take by mouth. C/sourcherry/celery/grape seed (TART ACOSTA ORAL) Take by mouth. BLUEBERRY APPLE CIDER VINEGAR ORAL Take by mouth. VITAMIN B COMPLEX ORAL Take by mouth. levothyroxine (SYNTHROID) 50 mcg tablet Take 50 mcg by mouth once daily. OTC NUTRITIONAL SUPPLEMENT once daily. QC Turmeric Apolic Acid Bererdine with Cylon Cinnamon Zinc MCT Oil No current facility-administered medications for this visit. Review of Systems Objective: Physical Exam Temp 37 C (98.6 F) Ht 175.3 cm (5' 9) Wt 71.7 kg (158 lb) BMI 23.33 kg/m BMI 23.33 kg/(m^2) DP and PT arteries palpable 1+/4+. CFT< 5 seconds. Skin temperature is Warm to cool. Negative hair growth. Skin is thin and shiny. Mild xerosis to bl lower extremities. 1+ pitting edema to bl lower extremities. Vibratory sensation diminished to hallucal IPJ bl. Protective sensation intact as tested to bl lower extremities with 5.07 [place] monofilament. Severe arthritic changes noted to Knees and ankles with chivo prominences. Range of motion to the ankle joint, subtalar joint, midtarsal joint, and 1st metatarsophalangeal joint is reduced bilateral.Muscle strength against resistance to all lower extremity mm. groups supplying the foot and ankle is 5/5 bilateral. Toenails 1-5 bl are discolored, elongated, and thickened, and clinically consistent with onychomycosis. Webspaces 1-4 bl are clean, dry, and intact. No interdigital maceration, no masses, no open lesions. 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 Katt Jimenez DPM documented in this encounterGrand Lake [facility]06-26-2024 History of Present illness Narrative* Anila Ferrer RN - 08/16/2023 11:00 AM EDT After visit summary was printed and given to patient. Discharge instructions and follow up appointments reviewed with patient. All questions answered. Patient verbalized understanding. Patient and family encouraged to call with any additional questions. * Iris Nava MD - 08/16/2023 11:00 AM EDT I saw and evaluated the patient on 05/31/23 with DOMINIC Mckeon. I provided a substantive portion of the care for this patient. I personally performed all aspects of the medical decision making for this encounter. I have reviewed and verified this documentation and it accurately reflects our care 72 y.o. with past medical history of HTN, DM2, HLD recently diagnosed with gastric ENMZL associatedwith H. pylori. He underwent a bone marrow biopsy on 03/15/23 which demonstrated no evidence of lymphomatous involvement and has undergone PET on 03/29/23 which demonstrates no other sites of FDG avid disease. H. Pylori infection is well known to be closely associated with developing MALT lymphoma of the stomach. If H. Pylori associated, outcomes are quite good with eradication of H. pylori alone. In a multicenter cohort study of 420 patients with gastric MALT, 77% achieve successful eradication of H. Pylori and the probabilities of freedom from treatment failure, overall survival and event-free survival after 10 years were 90%, 95% and 86% respectively (Rickie Nicholas, 2012). Today, we reviewed his follow up EGD after completing H pylori triple therapy. There is no evidenceof H pylori or MALT lymphoma at this time. He will start surveillance. NCCN guidance does not current recommend repeat EGDs for patients with negative H. Pylori and negative lymphoma assessment following completing triple therapy. I would recommend clinical surveillance and repeat EGDs as indicatedby symptoms. He is currently planning for repeat EGD in 6 months. If this is negative, would consider no further EGDs unless clinically indicated. He will return in 1 year for follow up, sooner if needed. Documented by Christiano Clarke, for Dr. Nava on 08/16/2023 at 11:22 AM All medical record entries made by the Vince were at my direction and personally dictated by me, Iris Nava MD, MSCR. I have reviewed and edited the chart and agree that the record accuratelyreflects my personal performance of the history, physical exam, assessment and plan. I have also per sonally directed, reviewed, and agree with the discharge instructions. Iris Nava MD, MSCR Shipping Hand - Division of Hematology [facility] documented in this encounterBlanch[facility]06[facility]26-[facility] Instructions* Patient Instructions* Anila Ferrer RN - 08/16/2023 11:[address] Nava Clinic Orientation Thank you for entrusting your care to us at [facility]. Our clinic specifically focuses on the management of patients withlymphoma and we aim to provide you the best, most innovative treatments available. Despite great adv ances in the treatment of many lymphomas over the past several decades, we know that we can and should continue to strive for better outcomes. As part of that mission, we will offer you the highest quality standard of care options for treatment, but we will also discuss any potential clinical trials for which you may be eligible. Team members: Emre Nava MD, MSCR: physician Nitza Sue, YARD CALLER: nurse practitioner Obdulia Murry YARD CALLER: nurse practitioner Anila Ferrer, RN: clinic nurse Jayne Frias, RN: clinic nurse Dominga Nuñez, RN: Patient Care Weather Stripper Marcial Roberts MS, RD: service agent Demetrius Graff, [facility] & Lise Faria [facility]: Pharmacists Neris Cabrera, Manager Power [facility] is a teaching institution; you may also have visits that include medical students, residents, or fellows in training. What to expect for your visits: While on treatment, we recommend planning to be with us for the entire day. We only have clinic on Wednesdays and generally cannot see patients on other days of the week (see Coordination of care section below). Please bring all medication bottles including herbal supplements and over the counter medications that you are routinely taking to every visit. This is important to ensure that we know about any potential drug interactions. After checking in, you will have your blood drawn. You will then see a provider to evaluate how well you are tolerating therapy (if on treatment), review test results, and answer any questions you have. Assuming that you are on therapy and tolerating it well, you will then go to the infusion area to receive your treatment. At times, our clinic may run behind schedule; we acknowledge that your time is valuable and that this can be frustrating for everyone involved. Please know that we strive to give the best care to each individual patient and make you feel heard, respected, and cared for. Due to the nature of our work, sometimes that takes more time than is allotted in the schedule. Please remember that at some point, the person who needs that extra time may be you and we will certainly aim to give you that even at the expense of running behind schedule for the remainder of the day. Communication of test results: We will review most lab results with you during your visit. Our team will review any labs performed outside of our visits. If [facility] at our request, please let us know when and where you had them drawn so we can ensure that we receive the results. We do not routinely convey normal lab results obtained outside of visits. If there is a lab result that needs to be discussed with you, we will contact you via phone or Jimuboxhart. With rare exception, we schedule visits shortly after any imaging studies. The purpose of these visits is to review your images with you, discuss the results, and to discuss any potential changes to your treatment plan based on those results. If there is an urgent or emergent finding in your imaging, we will call you. Otherwise, in our experience it is best to have these conversations in person at your visits. How to communicate with us best: If you are having a medical emergency, please call 911 rather than our office. After your visit, you may have questions or concerns that arise. For urgent matters, please call the nurse triage line at [phone] (open 12/09). Nurse Triage . For non-urgent matters or general questions, we prefer that you write them down so that we can address them in person at our next visit. If you feel that your question needs to be addressed prior to your next visit, please call nurse triage ([phone]) or send a message in [employer]Owner. If you need medication refills for drugs that we have prescribed you, it is best to let us know during your office visit. If you need a refill before your next visit, please send a message via [employer]Owner. Please alert us at least 7 days before you run out of medication. Coordination of care: We are helping to take care of you alongside other healthcare teams. You may have medical concerns that are outside of our expertise, so we ask that you maintain your relationship with other healthcare providers (especially your primary care physician) throughout your treatment; we will likely ask you to contact them for issues unrelated to your lymphoma or treatment. This is particularly important as we are only able to see patients on Wednesdays, and you may need to be evaluated by a member of your healthcare team prior to our next availability. We will send a letter and records to any referring physician and/or your primary care physician after our visit. Disability/FMLA paperwork: Please allow up to 2 weeks for all paperwork (disability, FMLA, etc.) to be filled out. The primarynurse is the one who will normally fill this paperwork out for you, and will only call to inform you the paperwork is completed and sent if requested. In order to help you as efficiently as possible, please specify: Which forms you need filled out Where we should send it when completed (to you, your employer, etc). [facility] Jimuboxhart: The medical information you will have access to within the [employer] Chart program is limited (basic laboratory results, summary of medical history, visit history, and selected billing information). If you need results of a test that you can't find within MyChart, please feel free to call us and we will get back to you with that information. Please allow 24-48 hours for a response when using My Chart. Please do not use My Chart for urgent needs. The best way to communicate urgent needs is by calling the nurse triage line. [place]: Each year, I ride 50+ miles for cancer research. This is a bike ride in [place] - 100% of every donation is invested at [facility] for innovative cancer research. Please see my rider profile: [email or web address] Results for orders placed or performed in visit on 08/16/23 COMPREHENSIVE METABOLIC PANEL Result Value Ref Range Sodium 139 135 - 145 mmol/L Potassium 4.1 3.5 - 5.0 mmol/L Chloride 105 98 - 108 mmol/L BUN 20 7 - 25 mg/dL Creatinine 0.98 0.70 - 1.30 mg/dL Glucose 116 (H) 70 - 99 mg/dL Bilirubin Total 0.8 <1.5 mg/dL Albumin 4.4 3.5 - 5.0 g/dL Total Protein 7.2 6.4 - 8.3 g/dL AST 19 10 - 39 U/L ALP 52 32 - 126 U/L Calcium 10.3 8.6 - 10.5 mg/dL CO2 30 21 - 31 mmol/L ALT 22 10 - 52 U/L Bun/Crea Ratio 20 Osmolality (Calculated) 295 278 - 305 mOsm/kg Anion Gap 8 7 - 17 mmol/L eGFR, CKD-EPI, Male 82 >=60 mL/min/1.73m2 LACTATE DEHYDROGENASE Result Value Ref Range LD Total 147 100 - 190 U/L CBC AND ELECTRONIC DIFF Result Value Ref Range WBC Count 6.60 3.73 - 10.10 K/uL RBC Count 4.70 4.38 - 5.83 M/uL Hemoglobin 13.6 13.4 - 16.8 g/dL Hematocrit 41.9 39.6 - 48.8 % Mean Cell Volume 89.1 79.0 - 94.5 fL Mean Cell Hgb 28.9 26.1 - 33.3 pg Mean Cell Hgb Conc 32.5 31.9 - 36.5 g/dL RBC Distribution 12.1 10.9 - 14.3 % Platelet Count 151 146 - 337 K/uL Mean Platelet Volume 9.6 8.7 - 12.3 fL DIFF STATUS Electronic Differential Segs + Bands Auto 64.2 % Immature Grans % 0.5 % Lymphocyte % Auto 22.6 % Monocyte % Auto 9.8 % Eosinophil % Auto 2.3 % Basophil % Auto 0.6 % Nucleated RBC 0.0 <=0.2 /100 WBC Segs + Bands,Absolute Auto 4.24 1.57 - 6.19 K/uL Immature Grans Absolute <0.04 <=0.07 K/uL Abs Lymph Auto 1.49 0.83 - 3.57 K/uL Abs Rhea Auto 0.65 0.24 - 0.93 K/uL Abs Eos Auto 0.15 0.00 - 0.48 K/uL Abs Baso Auto 0.04 0.00 - 0.09 K/uL documented in this encounterBlanch[facility]06[facility] Telephone encounter Note* Telephone Encounter - Jeanine Garza LPN - 08/11/2023 9:08 AM EDT Last EGD 07/24/23 Of note there is a current order for EGD placed by Dr. Rivera with a requested date being done around 01/26/24 Dr. Tellez plan as of 08/02: Restage at 6 month with endoscopy/biopsyn, for H. pylori/lymphoma after antibiotics Cardiology Dr. Hollis EGD with biopsy-negative for NHL on 07/24/[address] Rivera UpToDate: We typically perform endoscopy with biopsies every three months until a histologic complete response (CR) is attained, and then perform endoscopy every six months for at least the first twoyears and then suggest endoscopy every 18 months and as clinically indicated. Surveillance can stopin asymptomatic patients once two sequential endoscopies show no abnormalities on biopsy. Surveillance endoscopy evaluates for recurrence and for gastric adenocarcinoma; surveillance is especially important for those with persistent chronic gastritis that may have components of gastric atrophy or ga stric/intestinal metaplasia. 6 month OV after endoscopy Next OV with Dr. Tellez end of Jan 2024 [facility]06-21-2024 Miscellaneous Notes* Telephone Encounter - Jeanine Garza LPN - 08/11/2023 9:08 AM EDT Last EGD 07/24/23 Of note there is a current order for EGD placed by Dr. Rivera with a requested date being done around 01/26/24 Dr. Tellez plan as of 08/02: Restage at 6 month with endoscopy/biopsyn, for H. pylori/lymphoma after antibiotics Cardiology Dr. Hollis EGD with biopsy-negative for NHL on 07/24/[address] Rivera UpToDate: We typically perform endoscopy with biopsies every three months until a histologic complete response (CR) is attained, and then perform endoscopy every six months for at least the first twoyears and then suggest endoscopy every 18 months and as clinically indicated. Surveillance can stopin asymptomatic patients once two sequential endoscopies show no abnormalities on biopsy. Surveillance endoscopy evaluates for recurrence and for gastric adenocarcinoma; surveillance is especially important for those with persistent chronic gastritis that may have components of gastric atrophy or ga stric/intestinal metaplasia. 6 month OV after endoscopy Next OV with Dr. Tellez end of Jan 2024 * Telephone Encounter - Madeline Armenta - 08/04/2023 3:50 PM EDT Jennifer is calling Braydon Tellez MD today to request an order for the EGD that was recommended He would like to have done by the same provider Dr Rivera Patient has been identified by name and birthdate. Duration of symptoms: N/A Person calling: self Call patient at: at home [phone] (home) [phone] (cell) Was an appointment scheduled: No Closing statement: Results or non-symptom based questions: Thank you for calling [facility], your call will be returned within the next business day. Madeline Red documented in this encounterGrand [facility] Telephone encounter Note * Telephone Encounter - Madeline Armenta - 08/04/2023 3:50 PM EDT Jennifer is calling Braydon Tellez MD today to request an order for the EGD that was recommended He would like to have done by the same provider Dr Rivera Patient has been identified by name and birthdate. Duration of symptoms: N/A Person calling: self Call patient at: at home [phone] (home) [phone] (cell) Was an appointment scheduled: No Closing statement: Results or non-symptom based questions: Thank you for calling [facility], your call will be returned within the next business day. Madeline Red [facility]06-13-2024 Note* Addendum Note - Jeanine Garza LPN - 08/03/2023 11:40 AM EDTAddended by: JEANINE GARZA on: 08/03/2023 11:40 AM Modules accepted: Orders [facility]06-13-2024 Miscellaneous Notes* Addendum Note - Jeanine Garza LPN - 08/03/2023 11:40 AM EDTAddended by: JEANINE GARZA on: 08/03/2023 11:40 AM Modules accepted: Orders documented in this encounterGrand Lake [facility] History of Present illness Narrative* Braydon Tellez MD - 08/03/2023 11:10 AM EDT August 03, 2023 Jennifer Tidwell returns for a follow up EGD/colon performed 02/17/[address] Rivera who ordered Treatment for H pylori 02/24/23: bismuth subsalicylate 262 mg po qid; doxycycline hyclate 100 mg po bid; metronidazole 250 mg po qid; [id number] mg po bid. The patient did not take bismuth subsalicylate (only a few doses b/o he is diabetic);therefore he then took Clarithromycin triple therapy 03/07/23. Cardiology referral for atrial fibrillation noted during the procedure. Interim history: Denies bleeding, CP, abdominal pain, headaches, fevers, night sweats or unwanted weight loss. No nausea, vomiting, diarrhea or GI bleed. PMHx, PSHX, FHx and ROS are documented in Epic. All of these were reviewed and verified with patient. Review Of Systems: All systems reviewed with pertinent positives and negatives as outlined in the HPI. Physical Examination: On exam, he appears to be comfortable, in no acute distress. Vitals: see above. Alert and oriented x3. Heart with regular rhythm. No enlarged lymphadenopathy. Abdomen is soft. No hepatosplenomegaly. Lower extremities: No edema. Neuro exam: Nonfocal Labs: Latest Reference Range & Units 03/07/23 11:32 07/06/23 12:05 07/06/23 12:30 Interpretation (Prot Electro) No definitive M protein is identified on protein electrophoresis. An M protein is identified on protein electrophoresis. ! An M protein is identified on protein electrophoresis. ! M-Protein Location Gamma Fraction 1 Gamma Fraction 1 M-Protein Concentration <=0.00 g/dL 0.42 (H) 0.37 (H) MPA Result No M protein is identified. M protein is present. ! Interpretation (MPA) Atypical restricted bands are present in the IgG and kappa regions. Consistentwith IgG kappa monoclonal gammopathy. Result (UMPA) No M protein is identified. No M protein is identified. Latest Reference Range & Units 07/06/23 12:05 07/06/23 12:30 IgG 700 - 1,600 mg/dL 1,083 IgA 70 - 400 mg/dL 142 IgM 40 - 230 mg/dL 118 [place] Free, Serum 3.3 - 19.4 mg/L 20.4 (H) Lambda Free, Serum 5.7 - 26.3 mg/L 10.8 K/L Ratio, Serum 0.26 - 1.65 1.89 (H) Interpretation (Urine Electro) No definitive M protein is identified on protein electrophoresis. Nodefinitive M protein is identified on protein electrophoresis. Latest Reference Range & Units 06/26/23 13:37 H pylori Qualitative Test Result Negative Negative 03/15/23 Bone marrow, aspirate, touch imprint, clot section and core biopsy: - Normocellular marrow (30%) with trilineage hematopoiesis. - Adequate megakaryocytes. - Stainable iron present without ring sideroblasts. - Plasma cell hyperplasia with slightly increased kappa:lambda ratio (see comment). - No evidence of marrow involvement by lymphoma (see comment). There is no evidence of involvement by a lymphoproliferative disorder or abnormal blast population.Correlation with the clinical and bone marrow histopathologic findings is suggested. 02/17/23 A. 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 - Gastric antral mucosa with chronic active gastritis. - Positive for H. pylori microorganisms (morphologically confirmed on H&E sections). Interphase fluorescence in situ hybridization (FISH) was negative for a rearrangement involving theMALT1 gene (18q21.32). Diagnosis Comment H&E-stained sections in part A reveal gastric antral mucosa with chronic active gastritis and adiffuse vaguely nodular lymphoid infiltrate composed of small mature lymphocytes with abundant cytoplasm, slightly irregular nuclear contours, and intermixed plasma cells. Multifocally, these lymphocytes are infiltrating mucus glands, compatible with lymphoepithelial lesions. H. pylori organisms are also identified on the H&E section. Immunohistochemical stains were performed at [facility] on block A1. A significant majority (80%) of the lymphocytes are atypical B cells, positive for CD20 and CD43. CD3 and CD5 highlight far fewer, scattered background T lymphocytes. FISH testing for a MALT1 rearrangement Addendum Interphase fluorescence in situ hybridization (FISH) was negative for a rearrangement involving theMALT1 gene (18q21.32). 02/17/23 EGD: Impression: - Normal hypopharynx. - No gross lesions in the upper third of the esophagus and in the middle third of the esophagus. - Z-line regular, 41 cm from the incisors. - Erythematous mucosa in the gastric body and greater curvature of the gastric antrum. Biopsied. - No gross lesions in the duodenal bulb, in the first portion of the duodenum, in the second portion of the duodenum and in the third portion of the duodenum. - Gastroesophageal flap valve classified as Hill Grade I (prominent fold, tight to endoscope). 02/17/23 colonoscopy: Impression: - Stool in the ascending colon and in the cecum. - Diverticulosis in the recto-sigmoid colon, in the sigmoid colon, in the descending colon and in the ascending colon. - One less than 5 mm, non-bleeding polyp in the sigmoid colon, removed piecemeal using a cold biopsy forceps. Resected and retrieved. - The examination was otherwise normal on direct and retroflexion views. 07/24/23 EGD Impression: - Normal hypopharynx. - Z-line regular, 40 cm from the incisors. - Small sliding hiatal hernia. - Erythematous mucosa in the anterior wall of the gastric antrum. - Clear gastric fluid. - No gross lesions in the duodenal bulb, in the first portion of the duodenum and in the second portion of the duodenum. - Gastroesophageal flap valve classified as Hill Grade I (prominent fold, tight to endoscope). - Five biopsies were obtained on the greater curvature of the gastric body, on the lesser curvature of the gastric body, at the incisura, on the greater curvature of the gastric antrum and on the lesser curvature of the gastric antrum. 07/24/23 SURGICAL PATHOLOGY: [id number] A. Antrum, greater curvature, biopsy: -Antral mucosa with chronic inactive gastritis -Negative for Helicobacter pylori B. Antrum, lesser curvature, biopsy: -Antral mucosa with chronic inactive gastritis C. Incisura, biopsy: -Oxyntic mucosa with no diagnostic alteration D. Stomach body greater curvature, biopsy: -Oxyntic mucosa with no diagnostic alteration E. Stomach, body lesser curvature, biopsy: -Oxyntic mucosa with no diagnostic alteration Helicobacter pylori stain was obtained and is negative Imaging Studies: 03/30/23 PET: HEAD/NECK: * No FDG avid neoplastic process. CHEST: * No FDG avid neoplastic process. ABDOMEN/PELVIS: * No FDG avid neoplastic process. Specifically, no FDG avid gastric abnormality is apparent. MUSCULOSKELETAL: * No FDG avid neoplastic process. 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 Interphase fluorescence in situ hybridization (FISH) was negative for a rearrangement involving theMALT1 gene (18q21.32). 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 pylori/lymphoma after antibiotics Cardiology Dr. Hollis EGD with biopsy-negative for NHL on 07/24/[address] Rivera UpToDate: We typically perform endoscopy with biopsies every three months until a histologic complete response (CR) is attained, and then perform endoscopy every six months for at least the first twoyears and then suggest endoscopy every 18 months and as clinically indicated. Surveillance can stopin asymptomatic patients once two sequential endoscopies show no abnormalities on biopsy. Surveillance endoscopy evaluates for recurrence and for gastric adenocarcinoma; surveillance is especially important for those with persistent chronic gastritis that may have components of gastric atrophy or ga stric/intestinal metaplasia. 6 month OV after endoscopy Braydon Tellez M.D. (Elements copied from my previous note, have been reviewed and updated where appropriate, and all reflect current assessment and medical decision making from today's encounter, August 03, 2023) Medical Decision Making: Problems: Low: Stable chronic illness Data: Unique test result(s) reviewed: 3+ Risk: Low: Low risk from testing/treatment Medical Decision Making Level: 3 - Low Cc: No ref. provider found Jerel Bennett APRN.YARD CALLER BREANNA RAJPUT, EMELYN SAAVEDRA documented in this encounterGrand Lake [facility] History of Present illness Narrative* Yusuf Dean DPM - 08/01/2023 9:20 AM EDT Patient: Jennifer Tidwell Date: August 01, 2023 PCP: Jerel Bennett APRN.YARD CALLER Subjective: Jennifer Tidwell is a 72 year old male who presents for diabetic foot exam and with discolored, thickened, elongated toenails. He states the nails are causing pain and pressure in shoe gear, and is unable to safely manage these nails on their own. Patient admits to regular care with his PCP and states his fasting blood glucose was 97mg/dL this morning. Patient denies paresthesias in thebl feet. Patient admits to n/v/f/c/sob/cp/abdominal pain, and denies any other lower extremity complaints. Past Medical History: PAST MEDICAL HISTORY Diagnosis Date Allergic rhinitis 10/18/2010 Atrial fibrillation (HCC) Diabetes mellitus type 2 (HCC) 02/20/2014 HTN (hypertension) 10/18/2010 Hyperlipidemia MALT lymphoma (HCC) Gastric Migraine with visual aura 05/16/2012 Obstructive sleep apnea Cannot tolerate CPAP Renal stone 02/21/2008 Past Surgical History: PAST SURGICAL HISTORY Procedure [...] AVULSION CHRONIC 07/2010 left Allergies: Percocet [Oxycodone-Acetaminophen], Ultram [Tramadol Hcl], and Vicodin [Hydrocodone-Acetaminophen] Current Outpatient Medications Medication Sig cholecalciferol, vitD3,/vit K2 (VITAMIN D3-VITAMIN K2 ORAL) Take by mouth. ascorbic acid (VITAMIN C ORAL) Take by mouth. C/sourcherry/celery/grape seed (TART ACOSTA ORAL) Take by mouth. BLUEBERRY APPLE CIDER VINEGAR ORAL Take by mouth. VITAMIN B COMPLEX ORAL Take by mouth. levothyroxine (SYNTHROID) 50 mcg tablet Take 50 mcg by mouth once daily. OTC NUTRITIONAL SUPPLEMENT once daily. QC Turmeric Apolic Acid Bererdine with Cylon Cinnamon Zinc MCT Oil No current facility-administered medications for this visit. [...] syncope, weakness and headaches. Objective: Physical Exam Ht 175.3 cm (5' 9) Wt 72.6 kg (160 lb) BMI 23.63 kg/m BMI 23.63 kg/(m^2) DP and PT arteries palpable 1+/4+. [...] palpation with focal edema sub 3rd and 4thMPJ right foot. Minimal pain on palpation 3rd interspace between 3rd and 4th Metatarsals distally right foot. Toenails 1-5 bl are discolored, elongated, and thickened, and clinically consistent with onychomycosis. Webspaces 1-4 bl are clean, dry, and intact. No interdigital maceration, no masses, no open lesions. Procedures: - Toenails 1-5 bl sharply debrided in length and thickness without incident: Meets Q9 Hemoglobin A1C (%) Date Value 06/21/2014 7.5 Assessment: Onychomycosis (primary encounter diagnosis) Xerosis of skin Capsulitis of metatarsophalangeal (mtp) joint of right foot Haskins neuroma, right Pain in right foot Pain in toes of both feet Type 2 diabetes mellitus with peripheral neuropathy (hcc) Plan: -patient examined and evaluated -patient educated of the etiology of nail [...] occur. Patient is to continue with daily lowerextremity inspections and tight blood glucose control. -Patient instructed to use OTC lotion to bl lower extremities daily for xerosis management, and avoid application to webspace's -Patient instructed not to go barefoot and to wear good supportive shoe gear. -patient capsulitis and neuroma pain well controlled at this time -patient instructed to continue rest, ice, elevate PRN -patient to continue diabetic shoes with custom diabetic insoles -patient WBAT -patient instructed not to go barefoot -Instructed to contact our office if any lower extremity problems develop before next visit Return in about 9 weeks (around 10/03/2023). Yusuf Dean DPM documented in this encounterGrand Lake [facility]06[facility] Nurse Note* Radha Corbin RN - 07/24/2023 1:44 PM EDT AMBULATORY PATIENT EDUCATION NOTE TOPIC: GI PROCEDURES: Esophagogastroduodenoscopy(EGD) with or without biopies based on clinical findings, removal of polyps or lesions READINESS TO LEARN INSTRUCTION PROVIDED TO: Patient, readness to learn accessed prior to procedure COGNITIVE ABILITY: Alert and oriented PTED MOTIVATION TO LEARN: Interested FAMILY SUPPORT: High - Very involved in pt care IPATIENT LEARNS BEST BY: Individual Instruction FACTORS AFFECTING LEARNING: None PHYSICAL LIMITATIONS AFFECTING LEARNING: None LEARNING RESPONSE METHOD OF INSTRUCTION: Individual instruction PATIENT / FAMILY RESPONSE: Verbalizes understanding of: WORSENING CONDITION- Signs and symptoms of aworsening condition that warrant a call to the physician FOLLOW-UP PLAN: Patient instructed to call with any further issues SUPPLEMENTAL MATERIAL: Procedure Discharge Instructions REFERRAL (RECOMMENDATION): None [facility]06-03-2024 Nurse Note* Radha Corbin RN - 07/24/2023 1:44 PM EDT AMBULATORY PATIENT EDUCATION NOTE TOPIC: GI PROCEDURES: Esophagogastroduodenoscopy(EGD) with or without biopies based on clinical findings, removal of polyps or lesions READINESS TO LEARN INSTRUCTION PROVIDED TO: Patient, readness to learn accessed prior to procedure COGNITIVE ABILITY: Alert and oriented PTED MOTIVATION TO LEARN: Interested FAMILY SUPPORT: High - Very involved in pt care IPATIENT LEARNS BEST BY: Individual Instruction FACTORS AFFECTING LEARNING: None PHYSICAL LIMITATIONS AFFECTING LEARNING: None LEARNING RESPONSE METHOD OF INSTRUCTION: Individual instruction PATIENT / FAMILY RESPONSE: Verbalizes understanding of: WORSENING CONDITION- Signs and symptoms of aworsening condition that warrant a call to the physician FOLLOW-UP PLAN: Patient instructed to call with any further issues SUPPLEMENTAL MATERIAL: Procedure Discharge Instructions REFERRAL (RECOMMENDATION): None * Maya Layton RN - 07/24/2023 12:39 PM EDT PRE OP LEARNING ASSESSMENT PROCEDURE/SURGERY: GI PROCEDURES: EGD READINESS TO LEARN COGNITIVE ABILITY: Alert and oriented MOTIVATION TO LEARN: Eager FAMILY SUPPORT: High - Very involved in pt care PATIENT LEARNS BEST BY: Individual Instruction FACTORS AFFECTING LEARNING: None PHYSICAL LIMITATIONS AFFECTING LEARNING: None Electronically Signed By: Maya Layton RN In Department: GASTROENTEROLOGY documented in this encounterGrand Lake Joint [facility]06-[facility]-2024 NoteQ3 Patient Name: Jennifer Tidwell Procedure Date: 07/24/2023 1:06 PM Date of : 1950 Admit Type: Outpatient Age: 72 Gender: Male Note Status: Finalized Attending MD: Erin Rivera , , [id number] Procedure: Upper GI endoscopy Indications: Surveillance procedure for personal history of H pylori associated MALT lymphoma Providers: Erin Rivera Patient Profile: This is a 72 year old male. Refer to note in patient chart for documentation of history and physical. Referring Physician: Zeina Chaparro (pa) (Referring MD) Medicines: Monitored Anesthesia Care Complications: No immediate complications. Requesting Provider: Procedure: Pre-Anesthesia Assessment: - Prior to the procedure, a History and Physical was performed, and patient medications and allergies were reviewed. The patient is competent. The risks and benefits of the procedure and the sedation options and risks were discussed with the patient. All questions were answered and informed consent was obtained. Patient identification and proposed procedure were verified by the physician and the nurse in the pre-procedure area in the endoscopy suite. Mental Status Examination: alert and oriented. Airway Examination: normal oropharyngeal airway and neck mobility. Respiratory Examination: clear to auscultation. CV Examination: normal. Prophylactic Antibiotics: The patient does not require prophylactic antibiotics. Prior Anticoagulants: The patient has taken no anticoagulant or antiplatelet agents. ASA Grade Assessment: III - A patient with severe systemic disease. After reviewing the risks and benefits, the patient was deemed in satisfactory condition to undergo the procedure. The anesthesia plan was to use monitored anesthesia care (MAC). Immediately prior to administration of medications, the patient was re-assessed for adequacy to receive sedatives. The heart rate, respiratory rate, oxygen saturations, blood pressure, adequacy of pulmonary ventilation, and response to care were monitored throughout the procedure. The physical status of the patient was re-assessed after the procedure. After obtaining informed consent, the endoscope was passed under direct vision. Throughout the procedure, the patient's blood pressure, pulse, and oxygen saturations were monitored continuously. The Endoscope was introduced through the mouth, and advanced to the second part of duodenum. The upper GI endoscopy was accomplished with ease. The patient tolerated the procedure well. Moderate Sedation: MAC anesthesia was administered by the anesthesia team. Findings: The hypopharynx was normal. The Z-line was regular and was found 40 cm from the incisors. A small sliding hiatal hernia was present. Patchy mildly erythematous mucosa without bleeding was found on the anterior wall of the gastric antrum. Clear fluid was found in the gastric body. Two non-bleeding superficial gastric ulcers with no stigmata of bleeding were found at the incisura. The largest lesion was less than one mm in largest dimension. No gross lesions were noted in the duodenal bulb, in the first portion of the duodenum and in the second portion of the duodenum. The gastroesophageal flap valve was visualized endoscopically and classified as Hill Grade I (prominent fold, tight to endoscope). Five biopsies were obtained on the greater curvature of the gastric body, on the lesser curvature of the gastric body, at the incisura, on the greater curvature of the gastric antrum and on the lesser curvature of the gastric antrum with cold forceps for histology. Each sent as a separate specimen. Verification of patient identification for the specimen was done by the physician and nurse. Estimated blood loss was minimal. Impression: - Normal hypopharynx. - Z-line regular, 40 cm from the incisors. (more content not included)...[id number] History and physical note* Erin Rivera MD - 07/24/2023 1:30 PM EDT ENDOSCOPY HISTORY AND PHYSICAL EXAM Jennifer Tidwell [id number] Subjective HPI: This is a 72 year old male who presents for endoscopy. He has a history of hypertension, diabetes and sleep apnea. He was evaluated outpatient gastroenterology clinic in fall 2022 for a complaint of burning/coughing sensation in his throat with coffee or other triggers but without dysphagia or odynophagia. An EGDin 01/2023 demonstrated H pylori infection and mild MALT lymphoma. He is due for re-staging endoscopy. PAST ANESTHESIA HISTORY: No history of adverse event PAST MEDICAL HISTORY Diagnosis Date Allergic rhinitis 10/18/2010 Atrial fibrillation (HCC) Diabetes mellitus type 2 (HCC) 02/20/2014 HTN (hypertension) 10/18/2010 Hyperlipidemia MALT lymphoma (HCC) Gastric Migraine with visual aura 05/16/2012 Obstructive sleep apnea Cannot tolerate CPAP Renal stone 02/21/2008 PAST SURGICAL HISTORY Procedure Laterality Date EXERCISE [...] RECONSTRUCTION ROTATOR CUFF AVULSION CHRONIC 07/2010 left Prior to Admission medications as of 07/06/23 1156 Medication Sig Last Dose Taking cholecalciferol, vitD3,/vit K2 (VITAMIN D3-VITAMIN K2 ORAL) Take by mouth. ascorbic acid (VITAMIN C ORAL) Take by mouth. C/sourcherry/celery/grape seed (TART ACOSTA ORAL) Take by mouth. BLUEBERRY APPLE CIDER VINEGAR ORAL Take by mouth. VITAMIN B COMPLEX ORAL Take by mouth. levothyroxine (SYNTHROID) 50 mcg tablet Take 50 mcg by mouth once daily. OTC NUTRITIONAL SUPPLEMENT once daily. QC Turmeric Apolic Acid Bererdine with Cylon Cinnamon Zinc MCT Oil ALLERGIES Allergen Reactions Percocet [Oxycodone* Intolerance Ultram [Tramadol Hc* Intolerance Vicodin [Hydrocodon* Other: See Comments Objective PHYSICAL EXAM: The remainder of the physical exam is noncontributory. AIRWAY: Airway Visualization of Uvula: Yes Mouth opening greater than 2 fingerbreadths: Yes Neck Full Range of Motion: Yes LUNGS: Lungs clear to auscultation CARDIAC: Regular rhythm,Regular rate Assessment/Plan ASA Class: ASA Class:: Patient with severe systemic disease Active Problems: * No active hospital problems. * Resolved Problems: * No resolved hospital problems. * Medication and Non-Pharmacologic VTE Prophylaxis/Anticoagulants VTE Prophylaxis: not indicated for procedure Provisional Diagnosis/Treatment Plan: EGD: COLONOSCOPY: under MAC sedation Consent has been signed SEDATION GOAL: Anesthesia Erin Rivera MD 07/24/2023 1:08 PM [facility] Work Phone: [phone] [id number] History and physical note* Erin Rivera MD - 07/24/2023 1:30 PM EDT ENDOSCOPY HISTORY AND PHYSICAL EXAM Jennifer Tidwell [id number] Subjective HPI: This is a 72 year old male who presents for endoscopy. He has a history of hypertension, diabetes and sleep apnea. He was evaluated outpatient gastroenterology clinic in fall 2022 for a complaint of burning/coughing sensation in his throat with coffee or other triggers but without dysphagia or odynophagia. An EGDin 01/2023 demonstrated H pylori infection and mild MALT lymphoma. He is due for re-staging endoscopy. PAST ANESTHESIA HISTORY: No history of adverse event PAST MEDICAL HISTORY Diagnosis Date Allergic rhinitis 10/18/2010 Atrial fibrillation (HCC) Diabetes mellitus type 2 (HCC) 02/20/2014 HTN (hypertension) 10/18/2010 Hyperlipidemia MALT lymphoma (HCC) Gastric Migraine with visual aura 05/16/2012 Obstructive sleep apnea Cannot tolerate CPAP Renal stone 02/21/2008 PAST SURGICAL HISTORY Procedure Laterality Date EXERCISE [...] RECONSTRUCTION ROTATOR CUFF AVULSION CHRONIC 07/2010 left Prior to Admission medications as of 07/06/23 1156 Medication Sig Last Dose Taking cholecalciferol, vitD3,/vit K2 (VITAMIN D3-VITAMIN K2 ORAL) Take by mouth. ascorbic acid (VITAMIN C ORAL) Take by mouth. C/sourcherry/celery/grape seed (TART ACOSTA ORAL) Take by mouth. BLUEBERRY APPLE CIDER VINEGAR ORAL Take by mouth. VITAMIN B COMPLEX ORAL Take by mouth. levothyroxine (SYNTHROID) 50 mcg tablet Take 50 mcg by mouth once daily. OTC NUTRITIONAL SUPPLEMENT once daily. QC Turmeric Apolic Acid Bererdine with Cylon Cinnamon Zinc MCT Oil ALLERGIES Allergen Reactions Percocet [Oxycodone* Intolerance Ultram [Tramadol Hc* Intolerance Vicodin [Hydrocodon* Other: See Comments Objective PHYSICAL EXAM: The remainder of the physical exam is noncontributory. AIRWAY: Airway Visualization of Uvula: Yes Mouth opening greater than 2 fingerbreadths: Yes Neck Full Range of Motion: Yes LUNGS: Lungs clear to auscultation CARDIAC: Regular rhythm,Regular rate Assessment/Plan ASA Class: ASA Class:: Patient with severe systemic disease Active Problems: * No active hospital problems. * Resolved Problems: * No resolved hospital problems. * Medication and Non-Pharmacologic VTE Prophylaxis/Anticoagulants VTE Prophylaxis: not indicated for procedure Provisional Diagnosis/Treatment Plan: EGD: COLONOSCOPY: under MAC sedation Consent has been signed SEDATION GOAL: Anesthesia Erin Rivera MD 07/24/2023 1:08 PM documented in this encounterGrand [facility] Nurse Note* Maya Layton RN - 07/24/2023 12:39 PM EDT PRE OP LEARNING ASSESSMENT PROCEDURE/SURGERY: GI PROCEDURES: EGD READINESS TO LEARN COGNITIVE ABILITY: Alert and oriented MOTIVATION TO LEARN: Eager FAMILY SUPPORT: High - Very involved in pt care PATIENT LEARNS BEST BY: Individual Instruction FACTORS AFFECTING LEARNING: None PHYSICAL LIMITATIONS AFFECTING LEARNING: None Electronically Signed By: Maya Layton RN In Department: GASTROENTEROLOGY [facility]05-29-[facility]24 Telephone encounter Note* Telephone Encounter - Pema Parker MA - 07/19/2023 2:57 PM EDT Spoke with pt and went over instructions for an EGD . Pt verbalized uinderstanding [facility]05-29-2024 Miscellaneous Notes* Telephone Encounter - Pema Parker MA - 07/19/2023 2:57 PM EDT Spoke with pt and went over instructions for an EGD . Pt verbalized uinderstanding documented in this encounterGrand Lake [facility]05-29-2024 History of Present illness Narrative* Yusuf Busby MD - 07/19/2023 8:10 AM EDT Virtual or Telephone Consent An interactive audio and video telecommunication system which permits real time communications between the patient (at the originating site) and provider (at the distant site) was utilized to providethis telehealth service. Verbal consent was requested and obtained from Jennifer Tidwell on this date, 07/19/23 for a telehealth visit. HPI 72 y.o. male being seen with the following problem list: Problem list: 1. Elevated PSA Was put on cipro 2020 when PSA was initially high. Family history includes father [...] was obtained instead. 03/31/22 - seen over [facility]. [place] currently ExoDx 03/2021 24 PSA history 03/2022 - 4.1 12/2021 - 7.03 (11% free) 10/2021 - 5.96 01/05/2023 - seen today via thv for a psa check. Doing well. 07/19/23 - seen over th to review 6mo PSA. 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 Also now with afib. Lab Results Component Value Date PSA 6.17 (H) 07/18/2023 PSA 5.27 (H) 11/18/2022 PSA 4.11 (H) 03/24/2022 Current Medications: Current Outpatient Medications Medication Sig Dispense Refill sildenafil (Viagra) 100 mg tablet Take 1 tablet (100 mg) by mouth once daily. 1 HOUR BEFORE NEEDED No current facility-administered medications for this visit. Active Problems: Jennifer Tidwell is a 72 y.o. male with the following Problems and Medications. Patient Active Problem List Diagnosis Diabetes 1.5, managed as type 2 (Multi) Elevated PSA Erectile dysfunction Hypothyroidism Current Outpatient Medications Medication Sig Dispense Refill sildenafil (Viagra) 100 mg tablet Take 1 tablet (100 mg) by mouth once daily. 1 HOUR BEFORE NEEDED No current facility-administered medications for this visit. PMH: No past medical history on file. PSH: No past surgical history on file. FMH: No family history on file. Allergies: Allergies Allergen Reactions Oxycodone-Acetaminophen Unknown Assessment/ Plan PSA rising, now in context of new afib, stage 1 gastric MALT lymphoma. Not on blood thinners for afib. Discussed biopsy now vs trying a MRI vs repeating a PSA in a few months. He has claustophobia and is concerned about tolerating a MRI. He elected for a repeat PSA in 6-8 weeks. If still rising, will revisit bx. Scribe Attestation By signing my name below, I, Jessica Jack , Scribe attest that this documentation has been prepared under the direction and in the presence of Autumn Busby MD. documented in this [facility] Work Phone: [phone]) 390-795105-16-2024 History of Present illness Narrative* Braydon Tellez MD - 07/06/2023 11:10 AM EDT July 06, 2023 Jennifer Tidwell returns for a follow up EGD/colon performed 02/17/[address] Rivera who ordered Treatment for H pylori 02/24/23: bismuth subsalicylate 262 mg po qid; doxycycline hyclate 100 mg po bid; metronidazole 250 mg po qid; ffxnyrdivdtc96 mg po bid. The patient did not take bismuth subsalicylate (only a few doses b/o he is diabetic; therefore he then took Clarithromycin triple therapy 03/07/23. Cardiology referral for atrial fibrillation noted during the procedure. Interim history: Denies bleeding, CP, abdominal pain, headaches, fevers, night sweats or unwanted weight loss. No nausea, vomiting, diarrhea or GI bleed. He c/o mild improved LUQ pain up to 5/10, comes and goes, related to stretching/movement. PMHx, PSHX, FHx and ROS are documented in Epic. All of these were reviewed and verified with patient. Review Of Systems: All systems reviewed with pertinent positives and negatives as outlined in the HPI. Physical Examination: On exam, he appears to be comfortable, in no acute distress. Vitals: see above. Alert and oriented x3. Heart with regular rhythm. No enlarged lymphadenopathy. Abdomen is soft. No hepatosplenomegaly. Lower extremities: No edema. Neuro exam: Nonfocal Labs: 03/15/23 Bone marrow, aspirate, touch imprint, clot section and core biopsy: - Normocellular marrow (30%) with trilineage hematopoiesis. - Adequate megakaryocytes. - Stainable iron present without ring sideroblasts. - Plasma cell hyperplasia with slightly increased kappa:lambda ratio (see comment). - No evidence of marrow involvement by lymphoma (see comment). There is no evidence of involvement by a lymphoproliferative disorder or abnormal blast population.Correlation with the clinical and bone marrow histopathologic findings is suggested. 02/17/23 A. 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 - Gastric antral mucosa with chronic active gastritis. - Positive for H. pylori microorganisms (morphologically confirmed on H&E sections). Interphase fluorescence in situ hybridization (FISH) was negative for a rearrangement involving theMALT1 gene (18q21.32). Diagnosis Comment H&E-stained sections in part A reveal gastric antral mucosa with chronic active gastritis and adiffuse vaguely nodular lymphoid infiltrate composed of small mature lymphocytes with abundant cytoplasm, slightly irregular nuclear contours, and intermixed plasma cells. Multifocally, these lymphocytes are infiltrating mucus glands, compatible with lymphoepithelial lesions. H. pylori organisms are also identified on the H&E section. Immunohistochemical stains were performed at [facility] on block A1. A significant majority (80%) of the lymphocytes are atypical B cells, positive for CD20 and CD43. CD3 and CD5 highlight far fewer, scattered background T lymphocytes. FISH testing for a MALT1 rearrangement Addendum Interphase fluorescence in situ hybridization (FISH) was negative for a rearrangement involving theMALT1 gene (18q21.32). 02/17/23 EGD: Impression: - Normal hypopharynx. - No gross lesions in the upper third of the esophagus and in the middle third of the esophagus. - Z-line regular, 41 cm from the incisors. - Erythematous mucosa in the gastric body and greater curvature of the gastric antrum. Biopsied. - No gross lesions in the duodenal bulb, in the first portion of the duodenum, in the second portion of the duodenum and in the third portion of the duodenum. - Gastroesophageal flap valve classified as Hill Grade I (prominent fold, tight to endoscope). 02/17/23 colonoscopy: Impression: - Stool in the ascending colon and in the cecum. - Diverticulosis in the recto-sigmoid colon, in the sigmoid colon, in the descending colon and in the ascending colon. - One less than 5 mm, non-bleeding polyp in the sigmoid colon, removed piecemeal using a cold biopsy forceps. Resected and retrieved. - The examination was otherwise normal on direct and retroflexion views. Imaging Studies: 03/30/23 PET: HEAD/NECK: * No FDG avid neoplastic process. CHEST: * No FDG avid neoplastic process. ABDOMEN/PELVIS: * No FDG avid neoplastic process. Specifically, no FDG avid gastric abnormality is apparent. MUSCULOSKELETAL: * No FDG avid neoplastic process. 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 Interphase fluorescence in situ hybridization (FISH) was negative for a rearrangement involving theMALT1 gene (18q21.32). 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 pylori/lymphoma after antibiotics Cardiology Dr. Hollis EGD with biopsy on 07/24/[address] Rivera 1 month OV Braydon Tellez M.D. (Elements copied from my previous note, have been reviewed and updated where appropriate, and all reflect current assessment and medical decision making from today's encounter, July 06, 2023) Medical Decision Making: Problems: Moderate: 2+ stable chronic illnesses Data: Unique test result(s) reviewed: 3+ Unique test(s) ordered: 3+ Risk: Low: Low risk from testing/treatment Medical Decision Making Level: 4 - Moderate Cc: Braydon Tellez MD Dora L Richardson, APRN.YARD CALLER BREANNA RAJPUT, EMELYN SAAVEDRA documented in this encounterGrand [facility]05-06-2024 History of Present illness Narrative* Tao Gutierrez LPN - 06/26/2023 1:36 PM EDT Name: Jennifer Tidwell [facility]#: [id number] Date: 06/26/2023 H-PYLORI BREATH TEST Indication: History of H-Pylori The patient has been NPO for 1 hours, and has not had any antibiotic treatment during the last 4 weeks. A baseline alveolar breath sample was obtained. then which the patient was given a 75mg dose of Pranactin - Citric (C-Urea). 15 minutes later a second alveolar breath sample was obtained and the specimens were sent to the [facility]'s lab for processing. Tao Gutierrez LPN documented in this encounterGrand Lake [facility]04-24-2024 History of Present illness Narrative* Yusuf Dean DPM - 06/14/2023 10:57 AM EDT Patient: Jennifer Tidwell Date: June 14, 2023 PCP: Jerel Bennett APRN.YARD CALLER Subjective: Jennifer Tidwell is a 72 year old male who presents for dispensing of diabetic shoes and custom molded inserts. Patient admits to regular care with his PCP and states his fasting blood glucose was unchecked this morning. Patient denies paresthesias in the bl feet. Patient admits to n/v/f/c/sob/cp/abdominal pain, and denies any other lower extremity complaints. Past Medical History: PAST MEDICAL HISTORY Diagnosis Date Allergic rhinitis 10/18/2010 Atrial fibrillation (HCC) Diabetes mellitus type 2 (HCC) 02/20/2014 HTN (hypertension) 10/18/2010 Hyperlipidemia MALT lymphoma (HCC) Gastric Migraine with visual aura 05/16/2012 Obstructive sleep apnea Cannot tolerate CPAP Renal stone 02/21/2008 Past Surgical History: PAST SURGICAL HISTORY Procedure [...] AVULSION CHRONIC 07/2010 left Allergies: Percocet [Oxycodone-Acetaminophen], Ultram [Tramadol Hcl], and Vicodin [Hydrocodone-Acetaminophen] Current Outpatient Medications Medication Sig cholecalciferol, vitD3,/vit K2 (VITAMIN D3-VITAMIN K2 ORAL) Take by mouth. ascorbic acid (VITAMIN C ORAL) Take by mouth. C/sourcherry/celery/grape seed (TART ACOSTA ORAL) Take by mouth. BLUEBERRY APPLE CIDER VINEGAR ORAL Take by mouth. VITAMIN B COMPLEX ORAL Take by mouth. levothyroxine (SYNTHROID) 50 mcg tablet Take 50 mcg by mouth once daily. OTC NUTRITIONAL SUPPLEMENT once daily. QC Turmeric Apolic Acid Bererdine with Cylon Cinnamon Zinc MCT Oil No current facility-administered medications for this visit. [...] syncope, weakness and headaches. Objective: Physical Exam Ht 175.3 cm (5' 9) Wt 70.3 kg (155 lb) BMI 22.89 kg/m BMI 22.89 kg/(m^2) DP and PT arteries palpable 1+/4+. CFT< 5 seconds. Skin temperature is Warm to cool. Negative hair growth. Skin is thin and shiny. Mild xerosis to bl lower extremities. 1+ pitting edema to bl lower extremities. Vibratory sensation diminished to hallucal IPJ bl. Protective sensation intact as tested to bl lower extremities with 5.07 [place] monofilament. Range of motion to the ankle joint, subtalar joint, midtarsal joint, and 1st metatarsophalangeal joint is reduced bilateral. Muscle strength against resistance to all lower extremity mm. groups supplying the foot and ankle is 5/5 bilateral. Toenails 1-5 bl are discolored, elongated, and [...] qualifying conditions. The inserts comply with all [facility] requirements for custom molded inserts and they are noted to have total contact between the plantar surface of patient foot, including the arch and the inserts. There is adequate space between the end of the longest toe and the distalend of the shoes, no excessive pressure on the tops or side of the feet and no heel slippage. Procedures: - Dispensed one pair diabetic shoes with three pair custom molded inserts Hemoglobin A1C (%) Date Value 06/21/2014 7.5 Assessment: Xerosis of skin (primary encounter diagnosis) Type 2 diabetes mellitus with peripheral neuropathy [...] and/or inserts develop before next visit. Return in about 9 weeks (around 08/16/2023). Yusuf Dean DPM documented in this encounterGrand Lake [facility]04-23-2024 History of Present illness Narrative* Lopez Hollis MD - 06/13/2023 10:15 AM EDT Images from the original note were not included. [facility] Department of Cardiovascular Medicine SECTION OF CARDIOVASCULAR IMAGING OUTPATIENT VISIT DATE June 13, 2023 OUTPATIENT VISIT TYPE CONSULTATION PRIMARY CARE PHYSICIAN: Jerel Bennett ([place]) [address] [facility] [address] [place] [address] REFERRING PHYSICIAN Erin Rivera [address] [facility] [id number] CHIEF COMPLAINT: HISTORY OF PRESENT ILLNESS: Cardiac consultation at the request of Dr. Erin Rivera. A copy of this consultation note will be provided to the requesting physician by way of shared Medical record or letter to requesting physician via US mail. Mr. Tidwell is a 72 year old male from [place], [place], presenting today for cardiac evaluation regarding atrial fibrillation and a possible heart murmur. Significant past medical history includes: - Atrial fibrillation (developed a fib during EGD ) - Gastric MALT associated B cell lymphoma - Diabetes mellitus type 2 - Hypertension - Hyperlipidemia - Obstructive sleep apnea (cannot tolerate CPAP) - H pylori Family history significant for: Father- Diabetes, Carotid disease Sister- Diabetes Brother- Diabetes Mr. Tidwell states that he has been told he had a heart murmur since he was a child. He states thathe underwent an exercise stress test many years ago that turned out to be normal. He most recently underwent an EGD on 02/17/2023. During the EGD he was noted to be having possible episodes of atrialfibrillation. He presents today for further cardiac work-up. He presents today with complaints of occasional chest pain, and occasional lightheadedness or dizziness when over exerting. He also admits to skipped beats and palpitations at times that do not last long (feels like this is the short time that he goes in and out of atrial fibrillation. He denies shortness of breath, edema, near syncope or syncope. Mr. Tidwell is retired. He does not follow a specific diet. He currently exercises at the gym (cardio for 30 minutes, weight training) 5 days/week. PAST MEDICAL HISTORY Diagnosis Date Allergic rhinitis 10/18/2010 Atrial fibrillation (HCC) Diabetes mellitus type 2 (HCC) 02/20/2014 HTN (hypertension) 10/18/2010 Hyperlipidemia MALT lymphoma (HCC) Gastric Migraine with visual aura 05/16/2012 Obstructive sleep apnea Cannot tolerate CPAP Renal stone 02/21/2008 PAST SURGICAL HISTORY Procedure Laterality Date EXERCISE [...] RECONSTRUCTION ROTATOR CUFF AVULSION CHRONIC 07/2010 left SOCIAL HISTORY Social History Tobacco Use Smoking status: Never Smokeless tobacco: Never Vaping Use Vaping Use: Never used Substance Use Topics Alcohol use: Not Currently Alcohol/week: 2.0 standard drinks of alcohol Types: 2 Standard drinks or equivalent per week Drug use: Never FAMILY HISTORY Problem Relation Age of Onset Leukemia Mother Cancer Mother removal of a large tumor from the abdomen Prostate Cancer Father to the bone. at age 84 Diabetes Father Carotid Disease Father Diabetes Sister No Known Problems Sister Diabetes Brother No Known Problems Maternal Grandmother No Known Problems Maternal Grandfather No Known Problems Paternal Grandmother No Known Problems Paternal Grandfather No Known Problems Son No Known Problems Son ALLERGIES: ALLERGIES Allergen Reactions Percocet [Oxycodone* Intolerance Ultram [Tramadol Hc* Intolerance Vicodin [Hydrocodon* Other: See Comments MEDICATIONS: cholecalciferol, vitD3,/vit K2 (VITAMIN D3-VITAMIN K2 ORAL) Take by mouth. ascorbic acid (VITAMIN C ORAL) Take by mouth. C/sourcherry/celery/grape seed (TART ACOSTA ORAL) Take by mouth. BLUEBERRY APPLE CIDER VINEGAR ORAL Take by mouth. VITAMIN B COMPLEX ORAL Take by mouth. levothyroxine (SYNTHROID) 50 mcg tablet Take 50 mcg by mouth once daily. OTC NUTRITIONAL SUPPLEMENT once daily. QC Turmeric Apolic Acid Bererdine with Cylon Cinnamon Zinc MCT Oil REVIEW OF SYSTEMS: Positive in BOLD GENERAL: Weight loss or gain, Fever or Chills, Weakness and Sleep difficulties. HEENT: Headache, Glasses/Contacts, Eye pain, Impaired Vision, Trouble/Decreased Hearing, Ringing inEars, Nosebleeds, Dental Problems, Bleeding Gums, Dentures (partial) NECK: Swelling, Pain, Stiffness RESPIRATORY: Cough, Blood in Sputum, Shortness of breath, Wheezing, Asthma, Sleep Apnea SKIN: Rashes, Itching GASTROINTESTINAL: Trouble swallowing, Heartburn, Change in bowel habits, Blood in stool, Dark blackstools MUSCULOSKELETAL: Muscle or joint pain, Stiffness , Joint swelling NEUROLOGIC/PSYCHIATRIC: Weakness, Paralysis, Numbness, Tingling, Tremor, Nervousness, Anxiety, Depressed mood, Memory loss HEMATOLOGICAL/LYMPHATIC: Easy bruising , Easy bleeding ENDOCRINE: Heat or cold intolerance, Excessive sweating, Frequent urination, Frequent thirst PHYSICAL EXAMINATION: BP 135/74 (BP Site: Right Arm, BP Position: Sitting, BP Cuff Size: Regular Adult) Pulse (!) 55 Ht 175.3 cm (5' 9) Wt 69.9 kg (154 lb) SpO2 97% BMI 22.74 kg/m General: Well appearing, in no acute distress. Skin: No clubbing, no cyanosis. Eyes: Extra ocular movements intact Oropharynx: Teeth in good repair. Neck: No jugular venous distention, no carotid bruits, carotids have a normal upstroke, no palpablethyromegaly. Lungs: Clear to auscultation bilaterally, no wheezing or rhonchi. Heart: Regular rhythm, PMI not displaced, S1, S2 normal, no S3, no S4, no heaves, no rub and 2/6 low frequency KAREN over Erb's point. Abdomen: Soft, nontender, bowel sounds normal, no palpable organomegaly, no bruits. Extremities: No peripheral edema . Grade 2/4 distal pulses bilaterally. Neuro: Oriented to person, place and time, alert, cooperative, gait coordinated. CARDIOVASCULAR MEDICINE TESTING: ECG today: Jun 13 2023 09:19:05 Diagnosis: SINUS BRADYCARDIA WITH SINUS ARRHYTHMIA OTHERWISE NORMAL ECG echo today: - The left ventricle is normal in size. Left ventricular systolic function is normal. EF = 55 5% (2D biplane) - The right ventricle is dilated. Right ventricular systolic function is normal. - There is moderate (2+) tricuspid valve regurgitation caused by annular dilatation. - There is mild aortic stenosis. - The patient has not had a prior CC echocardiographic exam for comparison. I have personally reviewed the Electrocardiogram and Echocardiogram. IMPRESSION: Mr. Tidwell is a 72 year old male w/ mild valve disease. AF presence unclear. PLAN AND RECOMMENDATIONS: Will order 14 d Ziopatch VV in a month I personally interviewed, confirmed and edited the above information as obtained by others. CONTACT INFORMATION: Lopez Hollis M.D. [facility] Department of Cardiovascular Medicine [facility] Desk [address] [place], [place] [id number] Office - [phone] extension [phone] Office Appointments: [phone] extension [phone] documented in this encounterGrand Lake [facility]04-10-2024 History of Present illness Narrative* J Carlos Rucker MD - 05/31/2023 10:00 AM EDT Images from the original note were not included. IDENTIFICATION: Jennifer Tidwell is a 72 y.o. male who presents as a referral from Self, Self in consultation for recommendations about work up and management of gastric ENMZL associated with H pylori.I have reviewed the outside records and interviewed the patient and my findings are summarized below. ASSESSMENT: Diagnosis: Gastric Extranodal Marginal Zone Lymphoma Path: H pylori +, negative for t(11;18) Stage: IE GELF: none Hep B testing: pending Local Onc: Braydon Tellez Fertility: N/A Past Therapy: Triple therapy for H pylori (Feb - Mar 2023) Discussion: 72 y.o. with past medical history of HTN, HLD, DM2, ALLISON not on PAP who was recently diagnosed with gastric ENMZL associated with H pylori who presents for second opinion/to establish with our clinic. He has stage IE gastric ENMZL with a biopsy showing H pylori infection. He has undergone PET which demonstrates no other sites of FDG avid disease and has undergone a bone marrow biopsy which demonstrated no evidence of lymphomatous involvement. Additionally, he underwent FISH testing which demonstrated no t(11;18). All this points toward a MALT lymphoma that would likely respond to treatment with H pylori-directed therapy and not require specific anti-lymphoma therapy at this point. We reviewed the diagnosis, prognosis, and natural history of MALT lymphoma as an indolent non-Hodgkin lymphoma that is often infection-driven and responds and resolves with treatment of the underlying infection. He has already completed triple therapy and is scheduled for breath test, stool Ag test, and repeat endoscopy locally. We discussed that we would await the results of this testing to assess for persistence of H pylori as well as persistence of lymphoma. We discussed possible next steps depending on results including re-treatment with antibiotics or consideration of radiation therapy depending on results. The patient would prefer to follow up with us following the above testing. We recommend that he schedule an appointment 2-3 weeks following completion of the above testing locally to ensure that all results are available to us to discuss next steps at the next visit. I have personally reviewed and interpreted the results of the patient's CBC w/ diff, CMP, and LDH. I have personally viewed the PET/CT images and have reviewed the results with the patient today (05/31/2023). 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 Patient seen and evaluated and plan of care developed together with attending physician, Dr. Elijah Rucker MD Hematology/Medical Oncology Fellow Pager [phone] HISTORY OF PRESENT ILLNESS: Jennifer Tidwell is a 72 y.o. male with past medical history of HTN, HLD, DM2, ALLISON not on PAP who wasrecently diagnosed with gastric ENMZL associated with H pylori who presents for second opinion/to establish with our clinic. See Oncology History for details of imaging and path results. Please see assessment and plan for further details. In brief, he presented to his PCP with scratchy throat after drinking coffee. She recommended that he undergo an EGD in addition to his routine screening colonoscopy. 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 A subsequent PET and bone marrow biopsy revealed no evidence of disease anywhere else. He denies fevers, chills, night sweats, weight loss, adenopathy, early satiety, nausea, vomiting, melena, hematochezia, diarrhea, constipation, or abdominal pain. He saw a GI and local oncologist during this workup. He has now completed triple therapy for H pylori. He says he completed 2 weeks of triple therapy and then was prescribed a second course by his oncologist but says no repeat testing had been done to confirm eradication between these two courses. He is scheduled for a repeat EGD and breath test and stool Ag test next month locally. Today, he denies headaches, vision changes, SOB, chest pain, abdominal pain, diarrhea, constipation, LE edema. Denies weight loss, night sweats, fevers, chills, severe fatigue, or early satiety. Oncology History No history exists. PAST MEDICAL HISTORY: No past medical history on file. MEDICATIONS: No current outpatient medications on file. No current facility-administered medications for this visit. ALLERGIES: Allergies Allergen Reactions Hydrocodone-Acetaminophen Hives and Rash Other Reaction(s): Other: See Comments Oxycodone-Acetaminophen Rash Other Reaction(s): GI Intolerance, Intolerance, Unknown Tramadol Rash Other Reaction(s): GI Intolerance, Intolerance SOCIAL HISTORY: Social History Socioeconomic History Marital status: Social Determinants of Health Financial Resource Strain: Patient Declined (11/08/2022) Received from [facility] Overall Financial Resource Strain (CARDIA) Difficulty of Paying Living Expenses: Patient declined Food Insecurity: Unknown (11/08/2022) Received from [facility] Hunger Vital Sign Worried About Running Out of Food in the Last Year: Never true Ran Out of Food in the Last Year: Patient declined Transportation Needs: No Transportation Needs (11/08/2022) Received from [facility] PRAPARE - Transportation Lack of Transportation (Medical): No Lack of Transportation (Non-Medical): No Physical Activity: Sufficiently Active (11/08/2022) Received from [facility] Exercise Vital Sign Days of Exercise per Week: 6 days Minutes of Exercise per Session: 50 min Stress: No Stress Concern Present (11/08/2022) Received from [facility] of Occupational Health - Occupational Stress Questionnaire Feeling of Stress : Not at all Social Connections: Socially Integrated (11/08/2022) Received from [facility] Social Connection and Isolation Panel [NHANES] Frequency of Communication with Friends and Family: More than three times a week Frequency of Social Gatherings with Friends and Family: More than three times a week Attends Jew Services: More than 4 times per year Active Member of Clubs or Organizations: Yes Attends Club or Organization Meetings: Patient declined Marital Status: Living with partner Housing Stability: Low Risk (11/08/2022) Received from [facility] Housing Stability Vital Sign Unable to Pay for Housing in the Last Year: No Number of Places Lived in the Last Year: 1 Unstable Housing in the Last Year: No FAMILY HISTORY: No family history on file. REVIEW OF SYSTEMS: See HPI. A complete system ROS is otherwise negative. VITAL SIGNS: Vitals: 05/31/23 1007 BP: 141/67 Pulse: 51 Resp: 18 Temp: 97.7 degrees F (36.5 degrees C) TempSrc: Oral SpO2: 98% Weight: 72.8 kg (160 lb 6.4 oz) Height: 1.753 m (5' 9) EXAM: ECOG PS: 0 CONST: NAD, Awake, Alert HEENT: Oropharynx clear. No ptosis. Sclera anicteric. LYMPH: No cervical, supraclavicular, axillary, or inguinal LAD RESP: Clear to auscultation bilaterally. No wheezes, crackles, rales. CV: Regular rate and rhythm. No rubs, gallops or murmurs. No edema. GI: Soft, nontender, nondistended. No hepatosplenomegaly. MSK: No joint swelling or deformities. NEURO: No focal deficits. CN II-XII grossly intact. Strength is normal. Skin: No rash. LABORATORY: Office Visit on 05/31/2023 Component Date Value Ref Range Status WBC Count 05/31/2023 6.20 3.73 - 10.10 K/uL Final RBC Count 05/31/2023 4.86 4.38 - 5.83 M/uL Final Hemoglobin 05/31/2023 14.3 13.4 - 16.8 g/dL Final Hematocrit 05/31/2023 43.1 39.6 - 48.8 % Final Mean Cell Volume 05/31/2023 88.7 79.0 - 94.5 fL Final Mean Cell Hgb 05/31/2023 29.4 26.1 - 33.3 pg Final Mean Cell Hgb Conc 05/31/2023 33.2 31.9 - 36.5 g/dL Final RBC Distribution 05/31/2023 12.7 10.9 - 14.3 % Final Platelet Count 05/31/2023 153 146 - 337 K/uL Final Mean Platelet Volume 05/31/2023 9.2 8.7 - 12.3 fL Final DIFF STATUS 05/31/2023 Electronic Differential Final Segs + Bands Auto 05/31/2023 68.2 % Final Immature Grans % 05/31/2023 0.6 % Final Lymphocyte % Auto 05/31/2023 21.8 % Final Monocyte % Auto 05/31/2023 7.3 % Final Eosinophil % Auto 05/31/2023 1.6 % Final Basophil % Auto 05/31/2023 0.5 % Final Nucleated RBC 05/31/2023 0.0 <=0.2 /100 WBC Final Segs + Bands,Absolute Auto 05/31/2023 4.23 1.57 - 6.19 K/uL Final Immature Grans Absolute 05/31/2023 0.04 <=0.07 K/uL Final Abs Lymph Auto 05/31/2023 1.35 0.83 - 3.57 K/uL Final Abs Rhea Auto 05/31/2023 0.45 0.24 - 0.93 K/uL Final Abs Eos Auto 05/31/2023 0.10 0.00 - 0.48 K/uL Final Abs Baso Auto 05/31/2023 <0.04 0.00 - 0.09 K/uL Final * Anila Ferrer RN - 05/31/2023 10:00 AM EDT After visit summary was printed and given to patient. Discharge instructions and follow up appointments reviewed with patient. All questions answered. Patient verbalized understanding. Patient and family encouraged to call with any additional questions. * Iris Nava MD - 05/31/2023 10:00 AM EDT I saw and evaluated the patient on 05/31/23 with the fellow, Dr. J Carlos Rucker. I provided a substantive portion of the care for this patient. I personally performed all aspects of the medical decision making for this encounter. I have reviewed and verified this documentation and it accurately reflectsour care 72 y.o. with past medical history of HTN, DM2, HLD recently diagnosed with gastric ENMZL associatedwith H. pylori. He has undergone a bone marrow biopsy on 03/15/23 which demonstrated no evidence of lymphomatous involvement and has undergone PET on 03/29/23 which demonstrates no other sites of FDG avid disease. H. Pylori infection is well known to be closely associated with developing MALT lymphoma of the stomach. If H. Pylori associated, outcomes are quite good with eradication of H. pylori alone. In a multicenter cohort study of 420 patients with gastric MALT, 77% achieve successful eradication of H. Pylori and the probabilities of freedom from treatment failure, overall survival and event-free survival after 10 years were 90%, 95% and 86% respectively (Rickie Nicholas, 2012). He has a repeat urea breath test and stool sample scheduled to confirm resolution of his H pylori infection. He also has an endoscopy scheduled locally to evaluate for residual MALT lymphoma. If he is found to have residual disease, we could consider ISRT to the stomach vs close observation. In a re trospective cohort of 25 patients with stage I or II MALT lymphomas involving the stomach treated with ISRT, the relapse free survival at 10 years was 92%. If deemed unable to tolerate ISRT to the stomach we could discuss single agent Rituximab as a reaonable alternative. He will return about 3 weeks after his endoscopy. Documented by Sarita Clarke, for Iris Nava MD on 05/31/2023 at 11:04 AM. All medical record entries made by the Vince were at my direction and personally dictated by me, Iris Nava MD . I have reviewed and edited the chart and agree that the record accurately reflects my personal performance of the history, physical exam, assessment and plan. I have also personally directed, reviewed, and agree with the discharge instructions. Iris Nava MD, MSCR Shipping Hand - Division of Hematology [facility] Instructions* Patient Instructions* Anila Ferrer RN - 05/31/2023 10:[address] Nava Clinic Orientation Thank you for entrusting your care to us at [facility]. Our clinic specifically focuses on the management of patients withlymphoma and we aim to provide you the best, most innovative treatments available. Despite great adv ances in the treatment of many lymphomas over the past several decades, we know that we can and should continue to strive for better outcomes. As part of that mission, we will offer you the highest quality standard of care options for treatment, but we will also discuss any potential clinical trials for which you may be eligible. Team members: Emre Nava MD, MSCR: physician Umu Baldwin YARD CALLER: nurse practitioner Nitza Sue YARD CALLER: nurse practitioner Anila Ferrer, RN: clinic nurse Jayne Frias, RN: clinic nurse Dominga Nuñez, RN: Patient Care Weather Stripper Marcial Roberts MS, RD: service agent Demetrius Graff [facility] & Lise Faria [facility]: Pharmacists Manager Power [facility] is a teaching institution; you may also have visits that include medical students, residents, or fellows in training. What to expect for your visits: While on treatment, we recommend planning to be with us for the entire day. We only have clinic on Wednesdays and generally cannot see patients on other days of the week (see Coordination of care section below). Please bring all medication bottles including herbal supplements and over the counter medications that you are routinely taking to every visit. This is important to ensure that we know about any potential drug interactions. After checking in, you will have your blood drawn. You will then see a provider to evaluate how well you are tolerating therapy (if on treatment), review test results, and answer any questions you have. Assuming that you are on therapy and tolerating it well, you will then go to the infusion area to receive your treatment. At times, our clinic may run behind schedule; we acknowledge that your time is valuable and that this can be frustrating for everyone involved. Please know that we strive to give the best care to each individual patient and make you feel heard, respected, and cared for. Due to the nature of our work, sometimes that takes more time than is allotted in the schedule. Please remember that at some point, the person who needs that extra time may be you and we will certainly aim to give you that even at the expense of running behind schedule for the remainder of the day. Communication of test results: We will review most lab results with you during your visit. Our team will review any labs performed outside of our visits. If [facility] get [facility] of [facility] at our request, please let us know when and where you had them drawn so we can ensure that we receive the results. We do not routinely convey normal lab results obtained outside of visits. If there is a lab result that needs to be discussed with you, we will contact you via phone or [employer]. With rare exception, we schedule visits shortly after any imaging studies. The purpose of these visits is to review your images with you, discuss the results, and to discuss any potential changes to your treatment plan based on those results. If there is an urgent or emergent finding in your imaging, we will call you. Otherwise, in our experience it is best to have these conversations in person at your visits. How to communicate with us best: If you are having a medical emergency, please call 911 rather than our office. After your visit, you may have questions or concerns that arise. For urgent matters, please call the nurse triage line at [phone] (open 12/09). Nurse Triage . For non-urgent matters or general questions, we prefer that you write them down so that we can address them in person at our next visit. If you feel that your question needs to be addressed prior to your next visit, please call nurse triage ([phone]) or send a message in [employer]. If you need medication refills for drugs that we have prescribed you, it is best to let us know during your office visit. If you need a refill before your next visit, please send a message via [employer]. Please alert us at least 7 days before you run out of medication. Coordination of care: We are helping to take care of you alongside other healthcare teams. You may have medical concerns that are outside of our expertise, so we ask that you maintain your relationship with other healthcare providers (especially your primary care physician) throughout your treatment; we will likely ask you to contact them for issues unrelated to your lymphoma or treatment. This is particularly important as we are only able to see patients on Wednesdays, and you may need to be evaluated by a member of your healthcare team prior to our next availability. We will send a letter and records to any referring physician and/or your primary care physician after our visit. Disability/FMLA paperwork: Please allow up to 2 weeks for all paperwork (disability, FMLA, etc.) to be filled out. The primarynurse is the one who will normally fill this paperwork out for you, and will only call to inform you the paperwork is completed and sent if requested. In order to help you as efficiently as possible, please specify: Which forms you need filled out Where we should send it when completed (to you, your employer, etc). [facility] [employer]: The medical information you will have access to within the My Chart program is limited (basic laboratory results, summary of medical history, visit history, and selected billing information). If you need results of a test that you can't find within [employer], please feel free to call us and we will get back to you with that information. Please allow 24-48 hours for a response when using My Chart. Please do not use My Chart for urgent needs. The best way to communicate urgent needs is by calling the nurse triage line. [employer]: Each year, I ride 50+ miles for cancer research. This is a bike ride in [place] - 100% of every donation is invested at [facility] for innovative cancer research. Please see my rider profile: [email or web address] Results for orders placed or performed in visit on 05/31/23 LACTATE DEHYDROGENASE Result Value Ref Range LD Total 165 100 - 190 U/L COMPREHENSIVE METABOLIC PANEL Result Value Ref Range Sodium 138 135 - 145 mmol/L Potassium 4.4 3.5 - 5.0 mmol/L Chloride 103 98 - 108 mmol/L BUN 25 7 - 25 mg/dL Creatinine 0.98 0.70 - 1.30 mg/dL Glucose 127 (H) 70 - 99 mg/dL Bilirubin Total 0.8 <1.5 mg/dL Albumin 4.8 3.5 - 5.0 g/dL Total Protein 7.7 6.4 - 8.3 g/dL AST 24 10 - 39 U/L ALP 62 32 - 126 U/L Calcium 10.2 8.6 - 10.5 mg/dL CO2 29 21 - 31 mmol/L ALT 31 10 - 52 U/L Bun/Crea Ratio 26 Osmolality (Calculated) 296 278 - 305 mOsm/kg Anion Gap 10 7 - 17 mmol/L eGFR, CKD-EPI, Male 82 >=60 mL/min/1.73m2 CBC AND ELECTRONIC DIFF Result Value Ref Range WBC Count 6.20 3.73 - 10.10 K/uL RBC Count 4.86 4.38 - 5.83 M/uL Hemoglobin 14.3 13.4 - 16.8 g/dL Hematocrit 43.1 39.6 - 48.8 % Mean Cell Volume 88.7 79.0 - 94.5 fL Mean Cell Hgb 29.4 26.1 - 33.3 pg Mean Cell Hgb Conc 33.2 31.9 - 36.5 g/dL RBC Distribution 12.7 10.9 - 14.3 % Platelet Count 153 146 - 337 K/uL Mean Platelet Volume 9.2 8.7 - 12.3 fL DIFF STATUS Electronic Differential Segs + Bands Auto 68.2 % Immature Grans % 0.6 % Lymphocyte % Auto 21.8 % Monocyte % Auto 7.3 % Eosinophil % Auto 1.6 % Basophil % Auto 0.5 % Nucleated RBC 0.0 <=0.2 /100 WBC Segs + Bands,Absolute Auto 4.23 1.57 - 6.19 K/uL Immature Grans Absolute 0.04 <=0.07 K/uL Abs Lymph Auto 1.35 0.83 - 3.57 K/uL Abs Rhea Auto 0.45 0.24 - 0.93 K/uL Abs Eos Auto 0.10 0.00 - 0.48 K/uL Abs Baso Auto <0.04 0.00 - 0.09 K/uL documented in this [facility]U [facility] History of Present illness Narrative* Yusuf Dean DPM - 05/30/2023 12:16 PM EDT Patient: Jennifer Tidwell Date: May 30, 2023 PCP: Jerel Bennett APRN.YARD CALLER Subjective: Jennifer Tidwell is a 72 year old male who presents for diabetic foot exam and with discolored, thickened, elongated toenails. He states the nails are causing pain and pressure in shoe gear, and is unable to safely manage these nails on their own. Patient admits to regular care with his PCP and states his fasting blood glucose was 115mg/dL this morning. Patient denies paresthesias in the [...] AVULSION CHRONIC 07/2010 left Allergies: Percocet [Oxycodone-Acetaminophen], Ultram [Tramadol Hcl], and Vicodin [Hydrocodone-Acetaminophen] Current Outpatient Medications Medication Sig levothyroxine (SYNTHROID) 50 mcg tablet Take 50 mcg by mouth once daily. pantoprazole DR (PROTONIX) 40 mg tablet Take 1 tablet by mouth two times a day for [address] (PROTONIX) 40 mg tablet Take 1 tablet by mouth two times a day for 10 days. bismuth subsalicylate (PEPTO-BISMOL) 262 mg chewable tablet Take 1 tablet by mouth four times dailyfor 10 days. Ascorbic Acid (STRAWBERRY C) 500 mg chew Take by mouth. cholecalciferol, vitamin D3, (VITAMIN D3 ORAL) Take 2,000 Units by mouth once daily. VITAMIN K2 ORAL Take by mouth. multivit with iron,hematinic (SUPER B-COMPLEX ORAL) Take by mouth. (Patient not taking: Reported on03/15/2023) OTC NUTRITIONAL SUPPLEMENT once daily. QC Turmeric [...] weakness and headaches. Objective: Physical Exam Temp 36.8 C (98.2 F) Ht 175.3 cm (5' 9) Wt 70.3 kg (155 lb) BMI 22.89 kg/m BMI 22.89 kg/(m^2) DP and PT arteries palpable 1+/4+. [...] palpation with focal edema sub 3rd and 4thMPJ right foot. Minimal pain on palpation 3rd interspace between 3rd and 4th Metatarsals distally right foot. Toenails 1-5 bl are discolored, elongated, and thickened, and clinically consistent with onychomycosis. Webspaces 1-4 bl are clean, dry, and intact. No interdigital maceration, no masses, no open lesions. Procedures: - Toenails 1-5 bl sharply debrided in length and thickness without incident: Meets Q9 Hemoglobin A1C (%) Date Value 06/21/2014 7.5 Assessment: Onychomycosis (primary encounter diagnosis) Xerosis of skin Type 2 diabetes mellitus with peripheral neuropathy (hcc) Plan: -patient examined and evaluated -patient educated of the etiology of nail [...] occur. Patient is to continue with daily lowerextremity inspections and tight blood glucose control. -Patient instructed to use OTC lotion to bl lower extremities daily for xerosis management, and avoid application to webspace's -Patient instructed not to go barefoot and to wear good supportive shoe gear. -patient capsulitis and neuroma pain well controlled at this time -patient instructed to continue rest, ice, elevate PRN -patient to continue diabetic shoes with custom diabetic insoles -patient WBAT -patient instructed not to go barefoot -Instructed to contact our office if any lower extremity problems develop before next visit Return in about 9 weeks (around 08/01/2023). Yusuf Dean DPM documented in this encounterGrand [facility] Miscellaneous Notes* Addendum Note - Ameena Palafox LPN - 04/06/2023 12:24 PM ESTAddended by: AMEENA PALAFOX on: 04/06/2023 12:24 PM Modules accepted: Orders * Addendum Note - Ameena Palafox LPN - 04/06/2023 12:09 PM ESTAddended by: AMEENA PALAFOX on: 04/06/2023 12:09 PM Modules accepted: Orders documented in this encounterGrand [facility] History of Present illness Narrative* Braydon Tellez MD - 04/06/2023 11:38 AM EST April 06, 2023 Jennifer Tidwell returns for a follow up. Interim history: Denies bleeding, CP, headaches, fevers, night sweats or unwanted weight loss. No nausea, vomiting, diarrhea or GI bleed. He completed second of h pylori triple antibiotic therapy. Hedeveloped a fib during EGD and will see cardiology. Epigastric pain resolved. He c/o left groin pain intermittent, up to 5/10, improving after antibiotics. Review Of Systems: All systems reviewed with pertinent positives and negatives as outlined in the HPI. Physical Examination: On exam, he appears to be comfortable, in no acute distress. Vitals: see above. Alert and oriented x3. Heart with regular rhythm. No enlarged lymphadenopathy. Abdomen is soft. No hepatosplenomegaly. Lower extremities: No edema. Neuro exam: Nonfocal Labs: reviewed 03/15/23 Bone marrow, aspirate, touch imprint, clot section and core biopsy: - Normocellular marrow (30%) with trilineage hematopoiesis. - Adequate megakaryocytes. - Stainable iron present without ring sideroblasts. - Plasma cell hyperplasia with slightly increased kappa:lambda ratio (see comment). - No evidence of marrow involvement by lymphoma (see comment). There is no evidence of involvement by a lymphoproliferative disorder or abnormal blast population.Correlation with the clinical and bone marrow histopathologic findings is suggested. Imaging Studies: 03/30/23 PET: HEAD/NECK: * No FDG avid neoplastic process. CHEST: * No FDG avid neoplastic process. ABDOMEN/PELVIS: * No FDG avid neoplastic process. Specifically, no FDG avid gastric abnormality is apparent. MUSCULOSKELETAL: * No FDG avid neoplastic process. Assessment: 1. 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 Plan: H pylori breath test and stool test EGD with biopsy every 3 months for follow up with Dr. Rivera Cardiology appt Dr. Hollis 06/13/23 OV 3 months with lab Braydon Tellez M.D. (Elements copied from my previous note, have been reviewed and updated where appropriate, and all reflect current assessment and medical decision making from today's encounter, April 06, 2023) Cc: No ref. provider found No primary care provider on file. BREANNA RAJPUT, EMELYN SAAVEDRA Medical Decision Making: Problems: Moderate: 2+ stable chronic illnesses Data: Unique test result(s) reviewed: 3+ Unique test(s) ordered: 3+ Risk: Low: Low risk from testing/treatment Medical Decision Making Level: 4 - Moderate documented in this encounterGrand [facility] NoteHNO ID: [id number] Author: WARNER JIANG RT(R) Service: Nuclear Medicine Author Type: Technologist Type: Progress Notes Filed: 03/29/2023 08:46 Note Text: RADIOLOGY SERVICE PROGRESS NOTE SERVICE DATE: 03/29/2023 SERVICE TIME: 8:45 AM PATIENT IDENTITY VERIFICATION COMPLETED USING TWO (2) STANDARD IDENTIFIERS: Name and Date of confirmed by patient verbally FALL SCREENING: Has the patient had 2 falls in the last year or 1 fall with injury or currently using an Ambulatory Assistive Device (Walker, Cane, Wheelchair, Crutches, etc.)? Yes, Patient High Risk for Falls What interventions were put in place to prevent falls during this visit? Offered Assistance with Transfers/Clothing PATIENT GENDER DATA: .male ALLERGIES: NA MEDICATIONS REVIEWED: Not applicable PATIENT RELEVANT IMPLANT DATA REVIEWED: Not Applicable PATIENT PRESENTS WITH AN IMPLANTABLE OR ATTACHED RIG HAND: No CREATININE: Creatinine Date Value Ref Range Status 03/07/2023 1.00 0.73 - 1.22 mg/dL Final 08/06/2014 1.04 0.70 - 1.40 mg/dL Final 06/21/2014 1.00 0.70 - 1.40 mg/dL Final Estimated Glomerular Filtration Rate Date Value Ref Range Status 03/07/2023 80 >=60 mL/min/1.73m? Final Comment: Estimated Glomerular Filtration Rate (eGFR) is calculated using the 2020 CKD-EPI creatinine equation. This equation utilizes serum creatinine, sex, and age as parameters. The creatinine assay has traceable calibration to isotope dilution-mass spectrometry. Refer to KDIGO guidelines for clinical interpretation. In patients with unstable renal function, e.g. those with acute kidney injury, the eGFR may not accurately reflect actual GFR. eGFR- Date Value Ref Range Status 08/06/2014 >60 Final P.O.C.T. RESULTS: N/A March 29, [address] PERFORMED: No IV SITE: Ambulatory: MD only - direct IV injection in the Right antecubital site POST EXAM PIV STATUS: Discontinued PROCEDURE TYPE: NM INJECT: PET/CT BODY SCAN. 11.2 mCi F18 FDG. No other medications given.. ADMINISTRATION TIME: 0837 PATIENT DISCHARGED TO: Ambulatory patient, left MD department area. A Diagnostic radioactive procedure has taken place, with no further precautions necessary other than routine body substance precautions. More information regarding radiation safety can be found using this link: [email or web address] SIGNATURE: RT Dony(Babar) PATIENT NAME: Jennifer Tidwell DATE: March 29, 2023 TIME: 8:45 AM [facility]CONTA[id number] NoteHNO ID: [id number] Author: KORIN NICOLAS APRN.RAGINI Service: ? Author Type: Nurse Practitioner Type: Procedures Filed: 03/15/2023 10:27 Note Text: BEDSIDE PROCEDURE NOTE BONE MARROW BIOPSY Performed by: Korin Nicolas APRN.RAGINI Authorized by: Korin Nicolas APRN.CNP Where was Patient When this Procedure was Performed [facility] Informed Consent Consent Obtained: Written [place] Protocol A moment to CARE was completed. [...] Site: Right posterior sperior iliac crest . Paradigm Spine biopsy system was used. Using aseptic technique, bone marrow aspiration was performed. A touch prep was taken. Core biopsy was obtained 1.1 cm. The core biopsy was confirmed. Pressure dressing applied to Bone Marrow site(s). Hemostasis maintained. Assisting Clinician(s): Kasey Carr[employer]) Tatiana AVELAR Post-procedure Details: Patient tolerated the [...] possible retained foreign bodies accounted for. SIGNATURE: Korin Nicolas APRN.RAGINI PATIENT NAME: Jennifer Tidwell DATE: March 15, 2023 TIME: 10:15 [facility]01-24-2024 NoteHNO ID: [id number] Author: KORIN NICOLAS APRN.RAGINI Service: ? Author Type: Nurse Practitioner Type: [...] Plan of Care Visit completed when applicable. Korin Nicolas APRN.[facility] March 15, 2023 10:06 [facility]01-16-2024 NoteHNO ID: [id number] Author: BRAYDON TELLEZ MD Service: ? Author Type: Physician Type: Progress Notes Filed: 03/07/2023 10:55 Note Text: Jennifer Tidwell is a 72 year old male who [...] small meals. EGD/colon performed 02/17/[address] 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 Drink beer or bourbon-occasionally He smoked when [...] 131/81 Pulse 63 Ht 175.3 cm (5' 9) Wt 68.9 kg (152 lb) SpO2 98% [...] discoloration, clubbing or cyanosis. (more content not included)...[facility]red [id number] History of Present illness Narrative* Yusuf Busby MD - 01/05/2023 8:10 AM EST Virtual or Telephone Consent A telephone visit (audio only) between the patient (at the originating site) and the provider (at the distant site) was utilized to provide this telehealth service. Verbal consent was requested and obtained from Jennifer Tidwell on this date, 01/05/23 for a telehealth [...] was obtained instead. 03/31/22 - seen over [facility]. in [place] currently ExoDx 03/2021 24 PSA history 03/2022 - 4.1 12/2021 - 7.03 (11% free) 10/2021 - 5.96 01/05/2023 - seen today via v for a psa check. Doing well. Lab Results Component Value Date PSA 5.27 (H) 11/18/2022 PSA 4.11 (H) 03/24/2022 Current Medications: Current Outpatient Medications Medication Sig Dispense Refill sildenafil (Viagra) 100 mg tablet Take 1 tablet (100 mg) by mouth once daily. 1 HOUR BEFORE NEEDED No current facility-administered medications for this visit. Active Problems: Jennifer Tidwell is a 72 y.o. male with the following Problems and Medications. Patient Active Problem List Diagnosis Diabetes 1.5, managed as type 2 ([facility]) Elevated PSA Erectile dysfunction Hypothyroidism [...] in 6 mo and see back over [facility] at that time. Scribe Attestation By signing my name below, I, Jessica Jack , Scribe attest that this documentation has been prepared under the direction and in the presence of Autumn Busby MD. documented in this [facility] Work Phone: 1(917) 644-669510-19-2023 Instructions* Patient Instructions* Zeina Chaparro PA-C - 12/08/2022 12:43 PM EDT Images from the original note were not included. Please call [phone] to schedule your EGD and colonoscopy Please pick out hand your colonoscopy prep at your earliest convenience Bowel Preparation Instructions for: Golytely, Nulytely, Trilyte or Colyte (polyethylene glycol 3350and electrolytes) IF YOU DO NOT FOLLOW THESE [...] If you do not have a responsible company tanker truck driver (family member or friend) with you to take you home, your exam cannot be done with sedation and will be cancelled. Please bring a list of all of your current medications, including any Over-the Counter medications with you. Medications If you take insulin, diabetic medications or blood thinners such as Coumadin (warfarin), Plavix (clopidogrel), Ticlid (ticlopidine hydrochloride), Agrylin (anagrelide), Xarelto (Rivaroxaban), Pradaxa(Dabigatran), Eliquis (Apixaban), and Effient (Prasugrel). You MUST [...] at your local pharmacy or drugstore pharmacy. 1 01/2019 Bowel Preparation Instructions for: Golytely, Nulytely, Trilyte or Colyte (polyethylene glycol 3350and electrolytes) Three (3) Days Before Your Colonoscopy [...] your exam. 2 01/2019 documented in this encounterGrand [facility]10-19-2023 History of Present illness Narrative* Zeina Chaparro PA-C - 12/08/2022 12:22 PM EDT VIRTUAL VISIT NEW PATIENT NAME: Jennifer Tidwell CLINIC NO: [id number] DATE: 12/08/2022 REASON FOR VISIT Jennifer Tidwell [id number] has requested a video telemedicine initial consultation at the request of Self. Jennifer Tidwell verbalized informed consent to proceed with the video telemedicineinitial consultation. Jennifer Tidwell was informed that the details of this video visit would be recorded as part of their electronic medical record. My recommendations will be conveyed to the consulting provider by way of shared electronic medical record, fax, or U.S. Mail. Patient location at time of call: [place] This visit was conducted as a virtual visit. I have communicated my name and active licensure. The patient's identity and physical location wereverified at the time of this visit. Either the patient or their legal senior sales representative has been informed of the risks and benefits of -- and alternatives to -- treatment through a remote evaluation andconsents to proceed with the evaluation remotely. No chief complaint on file. PRESENTING COMPLAINT Jennifer Tidwell is a 71 year old male with [...] drug use. Denies family hx of GI malignancy.Denies heartburn/reflux. Denies chronic NSAID use. Denies fevers/chills, [...] Use as instructed twice daily 250.0 2 [id number] Blood-Glucose Meter misc 1 Each once daily. [...] to video on zoom Assessment IMPRESSION Jennifer Tidwell is a 71 year old male with [...] the date of the service which included [id number] patient care, completing clinical documentation, counseling and educating the patient/family/caregiver, and ordering medications, tests, or procedures. Zeina Chaparro PA-C December 08, 2022 12:29 PM documented in this encounterGrand Lake [facility]12-02-2022 History of Present illness Narrative* Yusuf Dean DPM - 01/21/2022 10:04 AM EST Patient: Jennifer Tidwell Date: January 21, 2022 PCP: Jerel Bennett APRN.YARD CALLER Subjective: Jennifer Tidwell is a 71 year old male who [...] C (98.6 F) Ht 175.3 cm (5' 9) Wt 77.1 kg (170 lb) BMI 25.10 [...] palpation with focal edema sub 3rd and 4thMPJ right foot. Minimal pain on palpation 3rd [...] qualifying conditions. The inserts comply with all [facility] requirements for custom molded inserts and they are noted to have total contact between the plantar surface of patient foot, including the arch and the inserts. There is adequate space between the end of the longest toe and the distalend of the shoes, no excessive pressure on the tops or side of the feet and no heel slippage. Procedures: - Dispensed one pair diabetic shoes with three pair custom molded inserts Hemoglobin A1C (%) Date Value 06/21/2014 7.5 Assessment: Haskins neuroma, right (primary encounter diagnosis) Capsulitis of [...] Return for Appointment as previously scheduled. Yusuf Dean DPM documented in this encounterGrand Lake [facility]11-15-2022 History of Present illness Narrative* Yusuf Dean DPM - 01/04/2022 12:20 PM EST Patient: Jennifer Tidwell Date: January 04, 2022 PCP: Jerel Bennett APRN.YARD CALLER Subjective: Jennifer Tidwell is a 71 year old male who [...] C (98.9 F) Ht 175.3 cm (5' 9) Wt 77.1 kg (170 lb) BMI 25.10 [...] palpation with focal edema sub 3rd and 4thMPJ right foot. Minimal pain on palpation 3rd [...] Onychomycosis (primary encounter diagnosis) Xerosis of skin Haskins neuroma, right Capsulitis of metatarsophalangeal (mtp) joint of right foot Pain in right foot Type 2 diabetes mellitus with peripheral neuropathy (hcc) Plan: Comprehensive Diabetic lower extremity examination and evaluation was performed. All findings and treatment recommendations were reviewed with the patient and family member/health care facility administrator (if present). Adetailed history and examination was obtained. I reviewed all pertinent Lab results, Diagnostic & imaging results, Other practitioners charts, and took into consideration Labs or diagnostics thatneed to be performed. Reviewed the extensive management [...] occur. Patient is to continue with daily lowerextremity inspections and tight blood glucose control. -Patient [...] in about 9 weeks (around 03/08/2022). Yusuf Dean DPM documented in this encounterGrand Lake [facility]10-31-2022 History of Present illness Narrative* Yusuf Dean DPM - 12/20/2021 1:33 PM EDT Patient: Jennifer Tidwell Date: December 20, 2021 PCP: Jerel Bennett APRN.YARD CALLER Subjective: Jennifer Tidwell is a 70 year old male who [...] C (98.4 F) Ht 175.3 cm (5' 9) Wt 77.1 kg (170 lb) BMI 25.10 [...] with an injection to the 3rd interspace haskins neuroma today. The risks, benefits, and alternatives [...] felt metatarsal pads added to underside of strategic sourcing manager in shoes for offloading Hemoglobin A1C (%) Date Value 06/21/2014 7.5 Assessment: Haskins neuroma, right (primary encounter diagnosis) Capsulitis of [...] in about 1 week (around 12/27/2021). Yusuf Dean DPM documented in this encounterGrand Lake [facility]02-02-2022 History of Present illness Narrative* 71 years old male presents today with elevated PSA. Was put on cipro last year when PSa was initially high. Family history includes father had prostate ca at 83 and bone marrow ca. Denies any urinaryconcerns. He is diabetic. PVR 93cc. ED are adequate, on and off, would like to try medication for this. Will start him on Sildenafil 100mg. Seen for consult 01/18/22. * 03/24/22 - Did not get an MRI because he is claustrophobic. ExoDx was obtained instead. * ExoDx 03/2021 24 * PSA history * 12/2021 - 7.03 (11% free) * 10/2021 - 5.96 [id number] Work Phone: 1(710) 620-547808-30-2012 History of Past illness Narrative* Problem Noted Date Resolved Date Low serum cortisol level 10/20/2011 013 documented as of this encounter (statuses as of 12/20/2021) [facility]08[facility] History of Past illness Narrative* Problem Noted Date Resolved Date Low serum cortisol level 10/20/2011 013 documented as of this encounter (statuses as of 01/04/2022) [facility] History of Past illness Narrative* Problem Noted Date Resolved Date Low serum cortisol level 10/20/2011 013 documented as of this encounter (statuses as of 01/21/2022) [address]30-2012 History of Past illness Narrative* Problem Noted Date Resolved Date Low serum cortisol level 10/20/2011 013 documented as of this encounter (statuses as of 05/02/2022) [address]30-2012 History of Past illness Narrative* Problem Noted Date Diagnosed Date Resolved Date Low serum cortisol level 10/20/2011 documented as of this encounter (statuses as of 12/08/2022) [address]30-2012 History of Past illness Narrative* Problem Noted Date Diagnosed Date Resolved Date Low serum cortisol level 10/20/2011 documented as of this encounter (statuses as of 01/04/2023) [address]30-2012 History of Past illness Narrative* Problem Noted Date Diagnosed Date Resolved Date Low serum cortisol level 10/20/2011 documented as of this encounter (statuses as of 03/30/2023) [address]30-2012 History of Past illness Narrative* Problem Noted Date Diagnosed Date Resolved Date Low serum cortisol level 10/20/2011 documented as of this encounter (statuses as of 03/31/2023) [address]30-2012 History of Past illness Narrative* Problem Noted Date Diagnosed Date Resolved Date Low serum cortisol level 10/20/2011 documented as of this encounter (statuses as of 04/06/2023) [address]30-2012 History of Past illness Narrative* Problem Noted Date Diagnosed Date Resolved Date Low serum cortisol level 10/20/2011 documented as of this encounter (statuses as of 05/31/2023) [facility]* Diagnosis Onset Date Resolution Status Wellness examination acute [facility] Work Phone: Evaluation note* Diagnosis Haskins neuroma, right- Primary Capsulitis of metatarsophalangeal (MTP) joint of right foot Pain in right foot Pain in limb Type 2 diabetes mellitus with peripheral neuropathy (HCC) [facility] Diagnosis Onychomycosis- Primary Dermatophytosis of nail Xerosis of skin Other specified disease of sebaceous glands Haskins neuroma, right Capsulitis of metatarsophalangeal (MTP) joint of right foot Pain in right foot Pain in limb Type 2 diabetes mellitus with peripheral neuropathy (HCC) documented in this encounter [facility]* Diagnosis Onset Date Resolution Status Wellness examination acute Hypothyroidism acute [facility] Work Phone: Evaluation note* Diagnosis Haskins neuroma, right- Primary Capsulitis of metatarsophalangeal (MTP) joint of right foot Pain in right foot Pain in limb Type 2 diabetes mellitus with peripheral neuropathy (HCC) documented in this encounter [facility]* Diagnosis Colon cancer screening- Primary Special screening for malignant neoplasms, colon Globus sensation Gastrointestinal malfunction arising from mental factors documented in this encounter [facility]* Diagnosis Gastroesophageal reflux disease, unspecified whether esophagitis present- Primary documented in this encounter [facility]* Diagnosis Elevated PSA- Primary Elevated prostate specific antigen (PSA) documented in this encounter [facility] Work Phone: Evaluation note* Diagnosis Onset Date Resolution Status Diabetes type 2, uncontrolled acute Dysphagia acute Hypothyroidism acute Weight loss, abnormal acute Hypothyroidism acute Restless leg acute Hypertension chronic [facility] Work Phone: Evaluation note* Diagnosis 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, unspecified B-cell lymphoma type (HCC) documented in this encounter [facility]* Diagnosis Onset Date Resolution Status Hypothyroidism acute Restless leg acute Hypertension chronic Diabetes type 2, uncontrolled acute Hypothyroidism acute Lymphoma acute [facility] Work Phone: Evaluation note* Diagnosis Heart murmur- Primary Undiagnosed cardiac murmurs Heart valve disorder Endocarditis, valve unspecified, unspecified cause documented in this encounter [facility]* Diagnosis 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 pylori infection Helicobacter pylori (H. 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 pylori infection- Primary Helicobacter pylori (H. 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 pylori infection Helicobacter pylori (H. pylori) MGUS (monoclonal gammopathy of unknown significance) Monoclonal paraproteinemia [facility]* Diagnosis Elevated PSA- Primary Elevated prostate specific antigen (PSA) documented in this encounter [facility] Work Phone: Evaluation note* Diagnosis Helicobacter pylori infection- Primary Helicobacter pylori (H. pylori) MALT lymphoma (HCC) Marginal zone lymphoma, unspecified site, extranodal and solid organ sites H. pylori infection Helicobacter pylori (H. 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 pylori infection Helicobacter pylori (H. 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 Other malignant lymphomas of intra-abdominal lymph nodes [facility]* Diagnosis 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 Marginal zone lymphoma, unspecified site, extranodal and solid organ sites documented [facility] this encounter [facility] Diagnosis Osteoarthritis of right ankle and foot- Primary Type 2 diabetes mellitus with peripheral neuropathy (HCC) documented in this encounter [facility]* Diagnosis Onychomycosis- Primary Dermatophytosis of nail Xerosis of skin Other specified disease of sebaceous glands Arthritis of right foot Unspecified arthropathy, ankle and foot Pain in right foot Pain in limb Pain in toes of both feet Type 2 diabetes mellitus with peripheral neuropathy (HCC) documented in this encounter [facility]* Diagnosis Pain Generalized pain [facility]* Diagnosis Capsulitis of metatarsophalangeal (MTP) joint of right foot- Primary Haskins neuroma, right Xerosis of skin Other specified disease of sebaceous glands Pain in right foot Pain in limb Type 2 diabetes mellitus with peripheral neuropathy (HCC) Onychomycosis Dermatophytosis of nail Arthritis of right foot Unspecified arthropathy, ankle and foot Pain in toes of both feet documented in this encounter [facility]* Diagnosis Prostate CA (Multi) Malignant neoplasm of prostate documented in this encounter [facility] Work Phone: Evaluation note* Diagnosis Onychomycosis- Primary Dermatophytosis of nail Xerosis of skin Other specified disease of sebaceous glands Capsulitis of metatarsophalangeal (MTP) joint of right foot Haskins neuroma, right Pain in right foot Pain in limb Pain in toes of both feet Equinus contracture of ankle Type 2 diabetes mellitus with peripheral neuropathy (HCC) [facility] Diagnosis Pre-op evaluation- Primary Preoperative examination, unspecified Type 2 diabetes mellitus with peripheral neuropathy (HCC) ALLISON (obstructive sleep apnea) Obstructive sleep apnea (adult) (pediatric) Acquired hypothyroidism Unspecified hypothyroidism 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, unspecified site, extranodal and solid organ sites Prostate cancer (HCC) Malignant neoplasm of prostate * Assessment & Plan Note - Kait Montiel APRN.CNP - 02/01/2024 1:07 PM EST Associated Problem(s): Prostate cancer (HCC) Assessment: [place] 6/grade group 1 pT1c adenocarcinoma the prostate Follows with Dr. 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 Following with gastro and oncology * Assessment & Plan Note - Kait Montiel APRN.CNP - 02/01/2024 1:05 PM EST Associated Problem(s): Hypothyroidism Assessment: On Levothyroxine, monitored by PCP * Assessment & Plan Note - Kait Montiel APRN.CNP - 02/01/2024 1:04 PM EST Associated Problem(s): ALLISON (obstructive sleep apnea) Assessment: Last PSG 2011 in chart Could not tolerate CPAP * Assessment & Plan Note - Kait Montiel APRN.CNP - 02/01/2024 1:04 PM EST Associated Problem(s): Type 2 diabetes mellitus with peripheral neuropathy (HCC) Assessment: Diet controlled States BG at home 100 No recent A1c in chart documented in this encounter [facility] note* Diagnosis Elevated PSA Elevated prostate specific antigen (PSA) documented in this encounter [facility] Work Phone: Evaluation note* Diagnosis Pre-op evaluation- Primary Preoperative examination, unspecified Type 2 diabetes mellitus with peripheral neuropathy (HCC) ALLISON (obstructive sleep apnea) Obstructive sleep apnea (adult) (pediatric) Acquired hypothyroidism Unspecified hypothyroidism 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, unspecified site, extranodal and solid organ sites Prostate cancer (HCC) Malignant neoplasm of prostate MALT (mucosa associated lymphoid tissue)- Primary Marginal zone lymphoma, unspecified site, extranodal and solid organ sites MALT lymphoma Marginal zone lymphoma, unspecified site, extranodal and solid organ sites documented in this encounter [facility] note* Diagnosis Elevated PSA- Primary Elevated prostate specific antigen (PSA) documented in this encounter [facility] Work Phone: Evaluation note* Diagnosis Pre-op evaluation- Primary Preoperative examination, unspecified Type 2 diabetes mellitus with peripheral neuropathy (HCC) ALLISON (obstructive sleep apnea) Obstructive sleep apnea (adult) (pediatric) Acquired hypothyroidism Unspecified hypothyroidism 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, unspecified site, extranodal and solid organ sites Prostate cancer (HCC) Malignant neoplasm of prostate H. pylori infection- Primary Helicobacter pylori (H. 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, unspecified B-cell lymphoma type (HCC) Prostate cancer managed with active surveillance (HCC) documented in this encounter [facility] note* Diagnosis Pre-op evaluation- Primary Preoperative examination, unspecified Type 2 diabetes mellitus with peripheral neuropathy (HCC) ALLISON (obstructive sleep apnea) Obstructive sleep apnea (adult) (pediatric) Acquired hypothyroidism Unspecified hypothyroidism 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, unspecified site, extranodal and solid organ sites Prostate cancer (HCC) Malignant neoplasm of prostate Onychomycosis- Primary Dermatophytosis of nail Xerosis of skin Other specified disease of sebaceous glands Capsulitis of metatarsophalangeal (MTP) joint of right foot Haskins neuroma, right Pain in right foot Pain in limb Pain in toes of both feet Equinus contracture of ankle Type 2 diabetes mellitus with peripheral neuropathy (HCC) Subungual hematoma of great toe of left foot, initial encounter [facility] Diagnosis Pre-op evaluation- Primary Preoperative examination, unspecified Type 2 diabetes mellitus with peripheral neuropathy (HCC) ALLISON (obstructive sleep apnea) Obstructive sleep apnea (adult) (pediatric) Acquired hypothyroidism Unspecified hypothyroidism 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, unspecified site, extranodal and solid organ sites Prostate cancer (HCC) Malignant neoplasm of prostate MALT lymphoma- Primary Marginal zone lymphoma, unspecified site, extranodal and solid organ sites History of Helicobacter pylori infection Personal history of other infectious and parasitic disease [facility] Diagnosis Prostate cancer- Primary Malignant neoplasm of prostate [facility] Diagnosis Pre-op evaluation- Primary Preoperative examination, unspecified Type 2 diabetes mellitus with peripheral neuropathy (HCC) ALLISON (obstructive sleep apnea) Obstructive sleep apnea (adult) (pediatric) Acquired hypothyroidism Unspecified hypothyroidism 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, unspecified site, extranodal and solid organ sites Prostate cancer (HCC) Malignant neoplasm of prostate Onychomycosis- Primary Dermatophytosis of nail Xerosis of skin Other specified disease of sebaceous glands Capsulitis of metatarsophalangeal (MTP) joint of right foot Haskins neuroma, right Pain in right foot Pain in limb Pain in toes of both feet Equinus contracture of ankle Type 2 diabetes mellitus with peripheral neuropathy (HCC) [facility] Diagnosis Pre-op evaluation- Primary Preoperative examination, unspecified Type 2 diabetes mellitus with peripheral neuropathy (HCC) ALLISON (obstructive sleep apnea) Obstructive sleep apnea (adult) (pediatric) Acquired hypothyroidism Unspecified hypothyroidism 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, unspecified site, extranodal and solid organ sites Prostate cancer (HCC) Malignant neoplasm of prostate 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, unspecified site, 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 [facility] Diagnosis Prostate CA (Multi)- Primary Malignant neoplasm of prostate Elevated PSA Elevated prostate specific antigen (PSA) documented in this encounter [facility] Work Phone: Evaluation note* Diagnosis Pre-op evaluation- Primary Preoperative examination, unspecified Type 2 diabetes mellitus with peripheral neuropathy (HCC) LALISON (obstructive sleep apnea) Obstructive sleep apnea (adult) (pediatric) Acquired hypothyroidism Unspecified hypothyroidism 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 pylori infection- Primary Helicobacter pylori (H. 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 Prostate cancer managed with active surveillance (HCC) documented [facility]* Diagnosis Pre-op evaluation- Primary Preoperative examination, unspecified Type 2 diabetes mellitus with peripheral neuropathy (HCC) ALLISON (obstructive sleep apnea) Obstructive sleep apnea (adult) (pediatric) Acquired hypothyroidism Unspecified hypothyroidism 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, unspecified site, extranodal and solid organ sites Prostate cancer (HCC) Malignant neoplasm of prostate Onychomycosis- Primary Dermatophytosis of nail Xerosis of skin Other specified disease of sebaceous glands Capsulitis of metatarsophalangeal (MTP) joint of right foot Haskins neuroma, right Pain in right foot Pain in limb Pain in toes of both feet Equinus contracture of ankle Type 2 diabetes mellitus with peripheral neuropathy (HCC) documented [facility] this [facility]* Diagnosis Abdominal pain, unspecified abdominal location- Primary Acute left-sided low back pain, unspecified whether sciatica present [facility] Diagnosis Elevated PSA Elevated prostate specific antigen (PSA) documented in this encounter [facility] Work Phone: Evaluation note* Diagnosis Elevated PSA Elevated prostate specific antigen (PSA) Prostate CA (Multi) Malignant neoplasm of prostate documented in this encounter [facility] Work Phone: History of Present illness Narrative* Yusuf Busby MD - 09/07/2023 9:30 AM EDT HPI 72 y.o. male being seen with the following problem list: Problem list: 1.Elevated PSA Was put on cipro 2020 when PSA was initially high. Family history includes father [...] was obtained instead. 03/31/22 - seen over [facility]. [place] currently ExoDx 03/2021 PSA history 03/2022 - 4.1 12/2021 - 7.03 (11% free) 10/2021 - 5.96 01/05/2023 - seen today via [facility]v for a psa check. Doing well. 07/19/23 - seen over th to review 6mo PSA. 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 Also now with afib. 09/07/23 - seen back over [facility] to discuss recent PSA. No blood thinners; afib was worked up with a Holter monitor, echo and no anticoagulation recommended. Lab Results Component Value Date PSA 6.57 (H) 09/05/2023 PSA 6.17 (H) 07/18/2023 PSA 5.27 (H) 11/18/2022 PSA 4.11 (H) 03/24/2022 Current Medications: Current Outpatient Medications Medication Sig Dispense Refill sildenafil (Viagra) 100 mg tablet Take 1 tablet (100 mg) by mouth once daily. 1 HOUR BEFORE NEEDED No current facility-administered medications for this visit. Active Problems: Jennifer Tidwell is a 72 y.o. male with the following Problems and Medications. Patient Active Problem List Diagnosis Diabetes 1.5, managed as type 2 (Multi) Elevated PSA Erectile dysfunction Hypothyroidism Current Outpatient Medications Medication Sig Dispense Refill sildenafil (Viagra) 100 mg tablet Take 1 tablet (100 mg) by mouth once daily. 1 HOUR BEFORE NEEDED No current facility-administered medications for this visit. PMH: No past medical history on file. PSH: No past surgical history on file. FMH: No family history on file. SHx: Allergies: Allergies Allergen Reactions Oxycodone-Acetaminophen Unknown Assessment/Plan PSA increasing further. Again discussed MRI, but claustrophobic. Discussed office TRUS bx. Discussed procedure in detail. Discussed risks of bleeding, infection, discomfort. Will need IM abx prior. Will schedule. Scribe Attestation By signing my name below, I, Jessica RhodesVernon, Ileanaibe, attest that this documentation has been prepared under the direction and in the presence of Yusuf Busby MD. [facility]: Reason for referral (narrative)* Outpatient Procedure (Routine) - Pending Review Specialty Diagnoses / Procedures Referred By Yesi farooq Referred To Contact [facility] Diagnoses Colon cancer screening Procedures COLONOSCOPY SCREENING COLONOSCOPY FLX DX W/COLLJ SPEC WHEN PFRMD Zeina Chaparro PA-C [address] [place] [address] [facility] [address] [place], [place] [id number] Referral ID Status Reason Start Date Expiration Date Visits Requested Visits Authorized [id number] Pending Review Auto-Generat ed Referral 3 12/09/2023 1 1 * Outpatient Procedure (Routine) - Pending Review Specialty Diagnoses / Procedures Referred By Yesi farooq Referred To Contact [facility] Diagnoses Globus sensation Procedures EGD DIAGNOSTIC ESOPHAGOGASTRODUODENOSC OPY TRANSORAL DIAGNOSTIC Zeina Chaparro PA-C [address] [place] [address] [facility] Disease [place] [address] [place] [id number] Referral ID Status Reason Start Date Expiration Date Visits Requested Visits Authorized [id number] Pending Review Auto-Generat ed Referral 12/09/2023 1 1 [facility] for referral (narrative)* Outpatient Procedure (Routine) - Authorized Specialty Diagnoses / Procedures Referred By Contac t Referred To Contact [facility] Diagnoses Heart murmur Heart valve disorder Procedures ECG COMPLETE ECG ROUTINE ECG W/LEAST 12 LDS W/I&R Lopez Hollis MD [address] [place] [address] [address] Referral ID Status Reason Start Date Expiration Date Visits Requested Visits Authorized [id number] Authorized Auto-Generat ed Referral 03/31/2023 03/30/2024 1 1 * Outpatient Procedure (Routine) - Authorized Specialty Diagnoses / Procedures [facility] To Contact [facility] Diagnoses Heart murmur Heart valve disorder Procedures ECHO ECHO TTHRC R-T 2D W/WOM-MODE COMPL SPEC&COLR D Lopez Hollis MD [address] [place] [address] [address] Referral ID Status Reason Start Date Expiration Date Visits Requested Visits Authorized [id number] Authorized Auto-Generat ed Referral 03/31/2023 03/30/2024 1 1 [facility] for referral (narrative)* Outpatient Procedure (Routine) - Closed Specialty Diagnoses / Procedures [facility] To [facility] Diagnoses MALT lymphoma (HCC) H. pylori infection Procedures EGD DIAGNOSTIC ESOPHAGOGASTRODUODENOSC OPY TRANSORAL DIAGNOSTIC Zeina Chaparro PA-C [address] [place] [address] [facility] Disease [place] [phone] Referral ID Status Reason Start Date Expiration Date V isits Requested Visits Authorized [id number] Closed Auto-Generate d Referral 03/01/2023 03/01/2024 1 1 [facility] for referral (narrative)* Outpatient Procedure (Routine) - Pending Review Specialty Diagnoses / Procedures Referred By Contac t Referred To Contact [facility] Diagnoses MALT lymphoma (HCC) Procedures EGD DIAGNOSTIC ESOPHAGOGASTRODUODENOSC OPY TRANSORAL DIAGNOSTIC Erin Rivera MD [address] [place] [address] [address] Referral ID Status Reason Start Date Expiration Date Visits Requested Visits Authorized [id number] Pending Review Auto-Generat ed Referral 08/09/2023 08/08/2024 1 1 [facility] for referral (narrative)* Outpatient Procedure (Routine) - Pending Review Specialty Diagnoses / Procedures Referred By Contac t Referred To Contact [facility] Diagnoses 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) Procedures EGD DIAGNOSTIC ESOPHAGOGASTRODUODENOSC OPY TRANS[place] [address] [place] [address] [address] Referral ID Status Reason Start Date Expiration Date Visits Requested Visits Authorized [id number] Pending Review Auto-Generat ed Referral 08/19/2023 08/18/2024 1 1 T [facility] for referral (narrative)* Diagnostic Procedure Only (Routine) - New Request Specialty Diagnoses / Procedures Referred By Contac t Referred To Contact X[facility] IMAGING Diagnoses Arthritis of right foot Procedures XR FOOT GENERAL 3V AP/LAT/OBL RIGHT RADEX FOOT COMPLETE MINIMUM 3 VIEWS Yusuf Dean, ROMA [address] [facility] [place] [address] [place] [address] Referral ID Status Reason Start Date Expiration Date Visits Requested Visits Authorized [id number] New Request Auto-Generat ed Referral 10/03/2023 11/01/2024 1 1 T [facility] for referral (narrative)* Diagnostic Procedure Only (Routine) - Closed Specialty Diagnoses / Procedures Referred By Contac t Referred To Contact XR IMAGING Diagnoses Pain Procedures XR FOOT GENERAL 3V AP/LAT/OBL BILATERAL RADEX FOOT COMPLETE MINIMUM 3 VIEWS Yusuf Dean, DPAmina [address] [facility] [place] [address] [place] [address] Referral ID Status Reason Start Date Expiration Date V isits Requested Visits Authorized [id number] Closed Auto-Generate d Referral 10/03/2023 11/01/2024 1 1 T [facility] for referral (narrative)* Outpatient Procedure (Routine) - Closed Specialty Diagnoses / Procedures Referred By Contac t Referred To Contact [facility] Diagnoses MALT lymphoma Procedures EGD DIAGNOSTIC ESOPHAGOGASTRODUODENOSC OPY TRANSORAL DIAGNOSTIC Erin Rivera MD [address] [place] [address] [facility] [address] [place], [place] [phone] Referral ID Status Reason Start Date Expiration Date V isits Requested Visits Authorized [id number] Closed Auto-Generate d Referral 08/09/2023 08/08/2024 1 1 [facility] for referral (narrative)* Outpatient Procedure (Routine) - New Request Specialty Diagnoses / Procedures Referred By Taraac t Referred To Contact [facility] Diagnoses MALT lymphoma History of Helicobacter pylori infection Procedures EGD DIAGNOSTIC ESOPHAGOGASTRODUODENOSCO PY TRANSORAL DIAGNOSTIC Erin Rivera MD [address] [place] [address] [facility] [place] [phone] Referral ID Status Reason Start Date Expiration Date Visits Requested Visits Authorized [id number] New Request Auto-Generat ed Referral 08/25/2024 02/25/2025 1 1 [facility] for referral (narrative)No reason for referral information availableWWVUMed[facility] Narrative* Diagnostic Procedure Only (Routine) - Closed Specialty Diagnoses / Procedures Referred By Contac t Referred To Contact [facility] Diagnoses 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, unspecified B-cell lymphoma type (HCC) Procedures NM PET/CT WHOLE BODY INITIAL PET IMAGING FOR CT ATTENU[place] [address] [place] [id number] [facility] [address] [place] [address] Referral ID Status Reason Start Date Expiration Date V isits Requested Visits Authorized [id number] Closed Auto-Generate d Referral 03/07/2023 04/05/2024 1 1 [facility] for visit Narrative* Outpatient Procedure (Routine) - Closed Specialty Diagnoses / Procedures Referred By Contac t Referred To Contact [facility] Diagnoses MALT lymphoma (HCC) H. pylori infection Procedures EGD DIAGNOSTIC ESOPHAGOGASTRODUODENOSC OPY TRANSORAL DIAGNOSTIC Zeina Chaparro PA-C [address] [place] [phone] [facility] [address] [place], [place] [phone] Referral ID Status Reason Start Date Expiration Date V isits Requested Visits Authorized [id number] Closed Auto-Generate d Referral 03/01/2023 03/01/2024 1 1 [facility] for visit Narrative* Diagnostic Procedure Only (Routine) - Closed Specialty Diagnoses / Procedures Referred By Contac t Referred To Contact XR IMAGING Diagnoses Pain Procedures XR FOOT GENERAL 3V AP/LAT/OBL BILATERAL RADEX FOOT COMPLETE MINIMUM 3 VIEWS Yusuf Dean, ROMA [address] [facility] [place] [address] [facility] [address] Referral ID Status Reason Start Date Expiration Date V isits Requested Visits Authorized [id number] Closed Auto-Generate d Referral 10/03/2023 11/01/2024 1 1 [facility] for visit Narrative* Outpatient Procedure (Routine) - Closed Specialty Diagnoses / Procedures Referred By Contac t Referred To Contact [facility] Diagnoses MALT lymphoma Procedures EGD DIAGNOSTIC ESOPHAGOGASTRODUODENOSC OPY TRANSORAL DIAGNOSTIC Erin Rivera MD [address] [place] [address] [facility] [address] [place] [address] Referral ID Status Reason Start Date Expiration Date V isits Requested Visits Authorized [id number] Closed Auto-Generate d Referral 08/09/2023 08/08/2024 1 1 [facility] for visit Narrative* Auth/Cert Specialty Diagnoses / Procedures Referred By Yesi t Referred To Contact Diagnoses Elevated PSA Elevated PSA [R97.20] Procedures ME PROSTATE NEEDLE BIOPSY ANY APPROACH ME BIOPSY OF PROSTATE,NEEDLE,TRANSPERINE AL CHG US TRANSRECTAL Transperineal Prostate Biopsy- Non Fusion- [place] [address] [facility] [place] [address] [facility] [address] [place] [address] Referral ID Status Reason Start Date Expiration Date Visits Re quested Visits Authorized [id number] [facility] Work Phone: Reason for visit Narrative* Outpatient Procedure (Routine) - Closed Specialty Diagnoses / Procedures Referred By Yesi t Referred To Contact [facility] Diagnoses 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) Procedures EGD DIAGNOSTIC ESOPHAGOGASTRODUODENOSC OPY TRANSORAL [place] [address] [place] [address] Phone: tel: fax:[phone] [facility] [address] [place] [address] Referral ID Status Reason Start Date Expiration Date V isits Requested Visits Authorized [id number] Closed Auto-Generate d Referral 08/18/2023 08/16/2024 1 1 [facility] for visit Narrative* Imaging (Routine) - Authorized Specialty Diagnoses / Procedures Referred By Contac t Referred To Contact Radiology Diagnoses Elevated PSA Procedures MR prostate with bessy boundaries if pirads 3 or above Yusuf Busby MD [facility]- [address]rd [place] [address] Phone: tel: fax: Referral ID Status Reason Start Date Expiration Date Visits Requested Visits Authorized [id number] Authorized Perform Procedure 09/05/2024 09/05/2025 1 1 [facility] Work Phone: Summary Purpose Family History No Family History Records Found Relationship Condition Age at Onset Recorded Date/T edwar father Malignant neoplasm Unknown Diabetes mellitus Unknown Hypertension Unknown brother Diabetes mellitus Unknown sister Diabetes mellitus Unknown Relationship Condition Age at Onset Recorded Date/T edwar father Diabetes mellitus Unknown Hypertension Unknown Malignant neoplasm Unknown brother Diabetes mellitus Unknown sister Diabetes mellitus Unknown Advance Directives No Advanced Directives Records Found Date Activated Date Inactivated Comments 11/14/2023 7:37 AM Question Answer Comments Plan of Care: Code Status Discussion Completed Decision Maker: Patient Date Activated Date Inactivated Comments 11/14/2023 7:37 AM Question Answer Comments Plan of Care: Code Status Discussion Completed Decision Maker: Patient Healthcare Agents on File Name Relationship Healthcare Agent [facility] p Communication Kelly De Oliveira Domestic Partner Primary Decision Maker Chief Complaint and Reason for Visit Chief Complaint Preventive wellness PE Labs Reason for Visit Wellness examination Chief Complaint Preventive wellness PE Labs medication refills/labs Reason for Visit Wellness examination Hypothyroidism Chief Complaint Diabetes Mellitus Ty pe [address] medication refills & Labs Reason for Visit Diabetes type 2, unc ontrolled Dysphagia Hypothyroidism Weight loss, abnormal Hypothyroidism Restless leg Hypertension Chief Complaint medication refills & Labs Atrial fibrillation Reason for Visit Hypothyroidism Restless leg Hypertension Diabetes type 2, uncontrolled Hypothyroidism Lymphoma Chief Complaint Admit Date Ear complaints/Sinus June 03, 2024 3: 15pm labs to be drawn TSH PSA August 21, 2024 3:11pm Reason for Visit Admit Date Abnormal prostate biopsy June 03 3:15pm Hearing loss of right ear due to cerumen impaction June 03, 2024 3:15pm Diabetes type 2, uncontrolled August 21, 2024 3:11pm Elevated PSA August 21, 2024 3:11p m Hypothyroidism August 21, 2024 3:11p m Chief Complaint * FUV * ED, ExoDx Reason for Referral Specialty Diagnoses / Procedures Referred By Yesi farooq Referred To Contact Gastroenterology Diagnoses H. pylori infection Procedures CONSULT TO GASTROENTEROLOGY OFFICE/OUTPATIENT [facility] [address] [place] [address] [place] [address] Referral ID Status Reason Start Date Expiration Date Visits Requested Visits Authorized [id number] Authorized PCP Requested Referral 04/06/2023 04/05/2024 1 1 Specialty Diagnoses / Procedures Referred By Yesi farooq [facility] Procedures CARDIOVASCULAR MEDICINE OP FOLLOW UP APPT ORDER Lopez Hollis MD [address] [place] [address] [facility] [id number] [place] [address] Referral ID Status Reason Start Date Expiration Date Visits Requested Visits Authorized [id number] Ref Not Required PCP Requested Referral 07/13/2023 06/12/2024 1 1 Additional Source Comments (unrecognized sect ion and content) No Status Records FoundNo Status Records FoundNo Status Records FoundNo Status Records FoundNo Status Records FoundNo Status Records FoundNo Status Records FoundNo Status Records FoundNo Status Records FoundNo Status Records FoundNo Status Records FoundNo Status Records FoundNo Status Records FoundNo Status Records Found INFORMATION SOURCE (unrecogn ized section and content) DATE CREATED AUTHOR 12/01/2020 [facility] DATE CREATED AUTHOR AUTHOR'S ORGANIZ ATION 11/25/2022 [employer] DATE CREATED AUTHOR AUTHOR'S ORGANIZ ATION 11/25/2022 [facility] DATE CREATED AUTHOR AUTHOR'S ORGANIZ ATION 03/31/2023 [facility] DATE CREATED AUTHOR AUTHOR'S ORGANIZ ATION 09/12/2023 [facility] DATE CREATED AUTHOR AUTHOR'S ORGANIZ ATION 11/16/2023 [facility] DATE CREATED AUTHOR AUTHOR'S ORGANIZ ATION 03/15/2024 [facility] DATE CREATED AUTHOR AUTHOR'S ORGANIZ ATION 04/25/2024 [facility] DATE CREATED AUTHOR AUTHOR'S ORGANIZ ATION 09/03/2024 [facility] DATE CREATED AUTHOR AUTHOR'S ORGANIZ ATION 09/09/2024 [facility] DATE CREATED AUTHOR AUTHOR'S ORGANIZ ATION 09/18/2024 [facility] DATE CREATED AUTHOR AUTHOR'S ORGANIZ ATION 10/27/2024 [facility] DATE CREATED AUTHOR AUTHOR'S ORGANIZ ATION 11/02/2024 [facility] DATE CREATED AUTHOR AUTHOR'S ORGANIZ ATION 12/16/2024 [facility] Goals (unrecognized section and content) Goals may be documented in a n alternate sectionGoals may be documented in an alternate sectionGoals may be documented in an alternate sectionGoals may be documented in an alternate sectionGoals may be documented in an alternate section Source Comments (unrecognize d section and content) In the event this informatio n is protected by the Federal Confidentiality of Alcohol and Drug Abuse Patient Records regulations: The Federal rules restrict any use of the information to criminally investigate or prosecute any alcohol or drug abuse patient.[facility] the event this information is protected by the Federal Confidentiality of Alcohol and Drug Abuse Patient Records regulations: The Federal rules restrict any use of the information to criminally investigate or prosecute any alcohol or drug abuse patient.[facility] HospitalIn the event this information is protected by the Federal Confidentiality of Alcohol and Drug Abuse Patient Records regulations: The Federal rules restrict any use of the information to criminally investigate or prosecute any alcohol or drug abuse patient.[facility] HospitalIn the event this information is protected by the Federal Confidentiality of Alcohol and Drug Abuse Patient Records regulations: The Federal rules restrict any use of the information to criminally investigate or prosecute any alcohol or drug abuse patient.[facility] HospitalIn the event this information is protected by the Federal Confidentiality of Alcohol and Drug Abuse Patient Records regulations: The Federal rules restrict any use of the information to criminally investigate or prosecute any alcohol or drug abuse patient.[facility] HospitalIn the event this information is protected by the Federal Confidentiality of Alcohol and Drug Abuse Patient Records regulations: The Federal rules restrict any use of the information to criminally investigate or prosecute any alcohol or drug abuse patient.[facility] HospitalIn the event this information is protected by the Federal Confidentiality of Alcohol and Drug Abuse Patient Records regulations: The Federal rules restrict any use of the information to criminally investigate or prosecute any alcohol or drug abuse patient.[facility] HospitalIn the event this information is protected by the Federal Confidentiality of Alcohol and Drug Abuse Patient Records regulations: The Federal rules restrict any use of the information to criminally investigate or prosecute any alcohol or drug abuse patient.[facility] HospitalIn the event this information is protected by the Federal Confidentiality of Alcohol and Drug Abuse Patient Records regulations: The Federal rules restrict any use of the information to criminally investigate or prosecute any alcohol or drug abuse patient.[facility] HospitalIn the event this information is protected by the Federal Confidentiality of Alcohol and Drug Abuse Patient Records regulations: The Federal rules restrict any use of the information to criminally investigate or prosecute any alcohol or drug abuse patient.[facility] HospitalIn the event this information is protected by the Federal Confidentiality of Alcohol and Drug Abuse Patient Records regulations: The Federal rules restrict any use of the information to criminally investigate or prosecute any alcohol or drug abuse patient.[facility] HospitalIn the event this information is protected by the Federal Confidentiality of Alcohol and Drug Abuse Patient Records regulations: The Federal rules restrict any use of the information to criminally investigate or prosecute any alcohol or drug abuse patient.[facility] HospitalIn the event this information is protected by the Federal Confidentiality of Alcohol and Drug Abuse Patient Records regulations: The Federal rules restrict any use of the information to criminally investigate or prosecute any alcohol or drug abuse patient.[facility] HospitalIn the event this information is protected by the Federal Confidentiality of Alcohol and Drug Abuse Patient Records regulations: The Federal rules restrict any use of the information to criminally investigate or prosecute any alcohol or drug abuse patient.[facility] HospitalIn the event this information is protected by the Federal Confidentiality of Alcohol and Drug Abuse Patient Records regulations: The Federal rules restrict any use of the information to criminally investigate or prosecute any alcohol or drug abuse patient.[facility] HospitalIn the event this information is protected by the Federal Confidentiality of Alcohol and Drug Abuse Patient Records regulations: The Federal rules restrict any use of the information to criminally investigate or prosecute any alcohol or drug abuse patient.[facility] HospitalIn the event this information is protected by the Federal Confidentiality of Alcohol and Drug Abuse Patient Records regulations: The Federal rules restrict any use of the information to criminally investigate or prosecute any alcohol or drug abuse patient.[facility] HospitalIn the event this information is protected by the Federal Confidentiality of Alcohol and Drug Abuse Patient Records regulations: The Federal rules restrict any use of the information to criminally investigate or prosecute any alcohol or drug abuse patient.[facility] HospitalIn the event this information is protected by the Federal Confidentiality of Alcohol and Drug Abuse Patient Records regulations: The Federal rules restrict any use of the information to criminally investigate or prosecute any alcohol or drug abuse patient.[facility] HospitalIn the event this information is protected by the Federal Confidentiality of Alcohol and Drug Abuse Patient Records regulations: The Federal rules restrict any use of the information to criminally investigate or prosecute any alcohol or drug abuse patient.[facility] HospitalIn the event this information is protected by the Federal Confidentiality of Alcohol and Drug Abuse Patient Records regulations: The Federal rules restrict any use of the information to criminally investigate or prosecute any alcohol or drug abuse patient.[facility] HospitalIn the event this information is protected by the Federal Confidentiality of Alcohol and Drug Abuse Patient Records regulations: The Federal rules restrict any use of the information to criminally investigate or prosecute any alcohol or drug abuse patient.[facility] HospitalIn the event this information is protected by the Federal Confidentiality of Alcohol and Drug Abuse Patient Records regulations: The Federal rules restrict any use of the information to criminally investigate or prosecute any alcohol or drug abuse patient.[facility] HospitalIn the event this information is protected by the Federal Confidentiality of Alcohol and Drug Abuse Patient Records regulations: The Federal rules restrict any use of the information to criminally investigate or prosecute any alcohol or drug abuse patient.[facility] HospitalIn the event this information is protected by the Federal Confidentiality of Alcohol and Drug Abuse Patient Records regulations: The Federal rules restrict any use of the information to criminally investigate or prosecute any alcohol or drug abuse patient.[facility] HospitalIn the event this information is protected by the Federal Confidentiality of Alcohol and Drug Abuse Patient Records regulations: The Federal rules restrict any use of the information to criminally investigate or prosecute any alcohol or drug abuse patient.[facility] HospitalIn the event this information is protected by the Federal Confidentiality of Alcohol and Drug Abuse Patient Records regulations: The Federal rules restrict any use of the information to criminally investigate or prosecute any alcohol or drug abuse patient.[facility] HospitalIn the event this information is protected by the Federal Confidentiality of Alcohol and Drug Abuse Patient Records regulations: The Federal rules restrict any use of the information to criminally investigate or prosecute any alcohol or drug abuse patient.[facility] HospitalIn the event this information is protected by the Federal Confidentiality of Alcohol and Drug Abuse Patient Records regulations: The Federal rules restrict any use of the information to criminally investigate or prosecute any alcohol or drug abuse patient.[facility] HospitalIn the event this information is protected by the Federal Confidentiality of Alcohol and Drug Abuse Patient Records regulations: The Federal rules restrict any use of the information to criminally investigate or prosecute any alcohol or drug abuse patient.[facility] HospitalIn the event this information is protected by the Federal Confidentiality of Alcohol and Drug Abuse Patient Records regulations: The Federal rules restrict any use of the information to criminally investigate or prosecute any alcohol or drug abuse patient.[facility] HospitalIn the event this information is protected by the Federal Confidentiality of Alcohol and Drug Abuse Patient Records regulations: The Federal rules restrict any use of the information to criminally investigate or prosecute any alcohol or drug abuse patient.[facility] HospitalIn the event this information is protected by the Federal Confidentiality of Alcohol and Drug Abuse Patient Records regulations: The Federal rules restrict any use of the information to criminally investigate or prosecute any alcohol or drug abuse patient.[facility] HospitalIn the event this information is protected by the Federal Confidentiality of Alcohol and Drug Abuse Patient Records regulations: The Federal rules restrict any use of the information to criminally investigate or prosecute any alcohol or drug abuse patient.[facility] HospitalIn the event this information is protected by the Federal Confidentiality of Alcohol and Drug Abuse Patient Records regulations: The Federal rules restrict any use of the information to criminally investigate or prosecute any alcohol or drug abuse patient.[facility] HospitalIn the event this information is protected by the Federal Confidentiality of Alcohol and Drug Abuse Patient Records regulations: The Federal rules restrict any use of the information to criminally investigate or prosecute any alcohol or drug abuse patient.[facility] HospitalIn the event this information is protected by the Federal Confidentiality of Alcohol and Drug Abuse Patient Records regulations: The Federal rules restrict any use of the information to criminally investigate or prosecute any alcohol or drug abuse patient.[facility] HospitalIn the event this information is protected by the Federal Confidentiality of Alcohol and Drug Abuse Patient Records regulations: The Federal rules restrict any use of the information to criminally investigate or prosecute any alcohol or drug abuse patient.[facility] Care Teams (unrecognized sec tion and content) Operating Room Rn Relationship Specialty Start Date End Date Jerel Bennett, COLD STRIP ROLLER.YARD CALLER PCP - General Family Medicine 04/22/16 [place] [address] [place] [address] Internal Medicine 04/22/16 Operating Room Rn Relationship Specialty Start Date End Date Jerel Bennett, COLD STRIP ROLLER.YARD CALLER PCP - General Family Medicine 04/22/16 [place] [address] [place] [address] Internal Medicine 04/22/16 Operating Room Rn Relationship Specialty Start Date End Date Jerel Bennett, COLD STRIP ROLLER.YARD CALLER PCP - General Family Medicine 04/22/16 [place] [address] [place] [address] Internal Medicine 04/22/16 Operating Room Rn Relationship Specialty Start Date End Date Jerel Bennett APRN.YARD CALLER [address] [place] [address] PCP - General Family Medicine 04/22/16 [place] [address] [place] [address] Internal Medicine 04/22/16 Operating Room Rn Relationship Specialty [place] [address] [place] [address] Internal Medicine 04/22/16 Operating Room Rn Relationship Specialty Start [place] [address] [place] [address] Internal Medicine 04/22/16 Operating Room Rn Relationship Specialty Start Date End Date Jerel Bennett, FRANC-YARD CALLER [address] [place] [address] PCP - General 03/24/22 Team Status: Active Member Role Status Dates Jerel Bennett DESK MAKER, DESK MAKER-C Family Provider Active Jerel Bennett DESK MAKER, DESK MAKER-C Primary Care Provider Active Team Status: Inactive Member Role Status Dates Jerel Bennett DESK MAKER, DESK MAKER-C Primary Care Pr ovider, Attending Provider, Referring Provider Active Operating Room Rn Relationship Specialty [place] [address] [place] [address] Internal Medicine 04/22/16 Operating Room Rn Relationship Specialty Start [place] [address] [place] [address] Internal Medicine 04/22/16 Operating Room Rn Relationship Specialty Start Date End Date Jerel Bennett, COLD STRIP ROLLER.YARD CALLER [address] [place] [address] PCP - General Family Medicine 05/30/23 [place] [address] [place] [address] Internal Medicine 04/22/16 Operating Room Rn Relationship Specialty Start Date End Date Jerel Bennett CNP [address] [place] [address] PCP - General Certified Nurse Practitioner 05/31/23 Iris Nava MD [facility] [address] [place] [address] Oncologist Hematology 04/07/23 Braydon Tellez MD [address] [place] [address] Hematology 04/13/23 Operating Room Rn Relationship Specialty Start Date End Date Jerel Bennett, COLD STRIP ROLLER.YARD CALLER [address] [place] [address] PCP - General Family Medicine 05/30/23 [place] [address] [place] [address] Internal Medicine 04/22/16 Lopez Hollis MD [address] [place] [address] Primary Staff Physician Cardiology 06/12/23 Operating Room Rn Relationship Specialty Start Date End Date Jerel Bennett, COLD STRIP ROLLER.YARD CALLER [address] [place], [place] [id number] PCP - General Family Medicine 05/30/23 [place] [address] [place] [address] Internal Medicine 04/22/16 Lopez Hollis MD [address] [place] [address] Primary Staff Physician Cardiology 06/12/23 Operating Room Rn Relationship Specialty Start Date End Date Jerel Bennett, COLD STRIP ROLLER.YARD CALLER [address] [place] [address] PCP - General Family Medicine 05/30/23 [place] [address] [place] [address] Internal Medicine 04/22/16 Lopez Hollis MD [address] [place] [address] Primary Staff Physician Cardiology 06/12/23 Operating Room Rn Relationship Specialty Start Date End Date Jerel Bennett, COLD STRIP ROLLER.YARD CALLER [address] [place] [address] PCP - General Family Medicine 05/30/23 [place] [address] [place] [address] Internal Medicine 04/22/16 Lopez Hollis MD [address] [place] [address] Primary Staff Physician Cardiology 06/12/23 Operating Room Rn Relationship Specialty Start Date End Date Jerel Bennett, FRANC-RAGINI [address] [place] [address] PCP - General 03/24/22 Operating Room Rn Relationship Specialty Start Date End Date Jerel Bennett, COLD STRIP ROLLER.YARD CALLER [address] [place], [place] [id number] PCP - General Family Medicine 05/30/23 [place] [address] [place] [address] Internal Medicine 04/22/16 Lopez Hollis MD [address] [place] [address] Primary Staff Physician Cardiology 06/12/23 Operating Room Rn Relationship Specialty Start Date End Date Jerel Bennett, COLD STRIP ROLLER.YARD CALLER [address] [place] [address] PCP - General Family Medicine 05/30/23 [place] [address] [place] [address] Internal Medicine 04/22/16 Lopez Hollis MD [address] [place] [address] Primary Staff Physician Cardiology 06/12/23 Operating Room Rn Relationship Specialty Start Date End Date Jerel Bennett, COLD STRIP ROLLER.YARD CALLER [address] [place], [place] [id number] PCP - General Family Medicine 05/30/23 [place] [address] [place] [address] Internal Medicine 04/22/16 Lopez Hollis MD [address] [place] [address] Primary Staff Physician Cardiology 06/12/23 Operating Room Rn Relationship Specialty Start Date End Date Jerel Bennett, COLD STRIP ROLLER.YARD CALLER [address] [place], [place] [id number] PCP - General Family Medicine 05/30/23 [place] [address] [place] [address] Internal Medicine 04/22/16 Lopez Hollis MD [address] [place] [address] Primary Staff Physician Cardiology 06/12/23 Operating Room Rn Relationship Specialty Start Date End Date Jerel Bennett CNP [address] [place] [address] PCP - General Certified Nurse Practitioner 05/31/23 Iris Nava MD [address] [place] [address] Oncologist Hematology 04/07/23 Braydon Tellez MD [address] [place] [address] Hematology 04/13/23 Operating Room Rn Relationship Specialty Start Date End Date Jerel Bennett, COLD STRIP ROLLER.YARD CALLER [address] [place] [address] PCP - General Family Medicine 05/30/23 [place] [address] [place] [address] Internal Medicine 04/22/16 Lopez Hollis MD [address] [place] [address] Primary Staff Physician Cardiology 06/12/23 Operating Room Rn Relationship Specialty Start Date End Date Jerel Bennett, COLD STRIP ROLLER.YARD CALLER [address] [place] [address] PCP - General Family Medicine 05/30/23 [place] [address] [place] [address] Internal Medicine 04/22/16 Lopez Hollis MD [address] [place] [address] Primary Staff Physician Cardiology 06/12/23 Operating Room Rn Relationship Specialty Start Date End Date Jerel Bennett, COLD STRIP ROLLER.YARD CALLER [address] [place] [address] PCP - General Family Medicine 05/30/23 [place] [address] [place] [address] Internal Medicine 04/22/16 Lopez Hollis MD [address] [place] [address] Primary Staff Physician Cardiology 06/12/23 Operating Room Rn Relationship Specialty Start Date End Date Jerel Bennett APRN.YARD CALLER [address] [place] [address] PCP - General Family Medicine 05/30/23 [place] [address] [place] [address] Internal Medicine 04/22/16 Lopez Hollis MD [address] [place] [address] Primary Staff Physician Cardiology 06/12/23 Operating Room Rn Relationship Specialty Start Date End Date Jerel Bennett APRN-YARD CALLER [address] [facility] [place] [address] PCP - General 03/24/22 Operating Room Rn Relationship Specialty Start Date End Date Jerel Bennett APRN.YARD CALLER [address] [place] [address] PCP - General Family Medicine 05/30/23 [place] [address] [place] [address] Internal Medicine 04/22/16 Lopez Hollis MD [address] [place], [place] [address] Primary Staff Physician Cardiology 06/12/23 Operating Room Rn Relationship Specialty Start Date End Date Jerel Bennett APRN-YARD CALLER [address] [facility] [place] [address] PCP - General 03/24/22 Operating Room Rn Relationship Specialty Start Date End Date Jerel Bennett COLD STRIP ROLLER.YARD CALLER [address] [place] [address] PCP - General Family Medicine 05/30/23 [place] [address] [place] [address] Internal Medicine 04/22/16 Lopez Hollis MD [address] [place] [address] Primary Staff Physician Cardiology 06/12/23 Operating Room Rn Relationship Specialty Start Date End Date Jerel Bennett, COLD STRIP ROLLER-YARD CALLER [address] [facility] [place] [address] PCP - General 03/24/22 Operating Room Rn Relationship Specialty Start Date End Date Jerel Bennett, COLD STRIP ROLLER.YARD CALLER [address] [place] [address] PCP - General Family Medicine 05/30/23 [place] [address] [place] [address] Internal Medicine 04/22/16 Lopez Hollis MD [address] [place] [address] Primary Staff Physician Cardiology 06/12/23 Operating Room Rn Relationship Specialty Start Date End Date Jerel Bennett, COLD STRIP ROLLER.YARD CALLER [address] [place] [address] PCP - General Family Medicine 05/30/23 [place] [address] [place] [address] Internal Medicine 04/22/16 Lopez Hollis MD [address] [place] [address] Primary Staff Physician Cardiology 06/12/23 Operating Room Rn Relationship Specialty Start Date End Date Jerel Bennett, COLD STRIP ROLLER.YARD CALLER [address] [place], [place] [id number] PCP - General Family Medicine 05/30/23 [place] [address] [place] [address] Internal Medicine 04/22/16 Lopez Hollis MD [address] [place], [place] [id number] Primary Staff Physician Cardiology 06/12/23 Operating Room Rn Relationship Specialty Start Date End Date Jerel Bennett CNP [address] [place] [address] PCP - General Certified Nurse Practitioner 05/31/23 Iris Nava MD [facility] [place] [id number] Oncologist Hematology 04/07/23 Braydon Tellez MD [address] [place] [address] Hematology 04/13/23 Operating Room Rn Relationship Specialty Start Date End Date Jerel Bennett, COLD STRIP ROLLER.YARD CALLER [address] [place] [address] PCP - General Family Medicine 05/30/23 [place] [address] [place] [address] Internal Medicine 04/22/16 Lopez Hollis MD [address] [place] [address] Primary Staff Physician Cardiology 06/12/23 Operating Room Rn Relationship Specialty Start Date End Date Jerel Bennett, COLD STRIP ROLLER.YARD CALLER [address] [place] [address] PCP - General Family Medicine 05/30/23 [place] [address] [place] [address] Internal Medicine 04/22/16 Lopez Hollis MD [address] [place] [address] Primary Staff Physician Cardiology 06/12/23 Operating Room Rn Relationship Specialty Start Date End Date Jerel Bennett, COLD STRIP ROLLER.YARD CALLER [address] [place] [address] PCP - General Family Medicine 05/30/23 [place] [address] [place] [address] Internal Medicine 04/22/16 Lopez Hollis MD [address] [place] [address] Primary Staff Physician Cardiology 06/12/23 Team Status: Active Member Role/Relationship Status Dates Jerel Bennett DESK MAKER, DESK MAKER-C Family Provider Active Jerle Bennett DESK MAKER, DESK MAKER-C Primary Care Provider Active Team Status: Inactive Member Role/Relationship Status Dates Jerel Bennett DESK MAKER, DESK MAKER-C Primary Care Provider Active Start: June 03, 2024 End: June 03, 2024 Jerel Bennett DESK MAKER, DESK MAKER-C Attending Provider Active Start: June 03, 2024 End: June 03, 2024 Jerel Bennett DESK MAKER, DESK MAKER-C Referring Provider Active Start: June 03, 2024 End: June 03, 2024 Team Status: Inactive Member Role/Relationship Status Dates Jerel Bennett DESK MAKER, DESK MAKER-C Primary Care Provider Active Start: August 21, 2024 End: August 21, 2024 Jerel Bennett DESK MAKER, DESK MAKER-C Attending Provider Active Start: August 21, 2024 End: August 21, 2024 Jerel Bennett DESK MAKER, DESK MAKER-C Referring Provider Active Start: August 21, 2024 End: August 21, 2024 Team Status: Inactive Member Role/Relationship Status Dates Jerel Bennett DESK MAKER, DESK MAKER-C Primary Care Provider Active Start: August 21, 2024 End: August 21, 2024 Jerel Bennett DESK MAKER, DESK MAKER-C Attending Provider Active Start: August 21, 2024 End: August 21, 2024 Jerel Bennett DESK MAKER, DESK MAKER-C Referring Provider Active Start: August 21, 2024 End: August 21, 2024 Operating Room Rn Relationship Specialty Start Date End Date Jerel Bennett APRN-YARD CALLER [address] [place] [address] PCP - General 03/24/22 Operating Room Rn Relationship Specialty Start Date End Date Jerel Bennett APRN.YARD CALLER [address] [place] [address] PCP - General Family Medicine 05/30/23 [place] [address] [address] Internal Medicine 04/22/16 Lopez Hollis MD [address] [place], [place] [id number] Primary Staff Physician Cardiology 06/12/23 Operating Room Rn Relationship Specialty Start Date End Date Jerel Bennett, COLD STRIP ROLLER.YARD CALLER [address] [place], [place] [phone] PCP - General Family Medicine 05/30/23 [place] [address] [place], [place] [id number] Internal Medicine 04/22/16 Lopez Hollis MD [address] [place] [address] Primary Staff Physician Cardiology 06/12/23 Operating Room Rn Relationship Specialty Start Date End Date Marion Fritz COLD STRIP ROLLER - YARD CALLER [address] [facility] [address] [place], [place] [id number] PCP - General Family Medicine 03/12/24 Operating Room Rn Relationship Specialty Start Date End Date Jerel Bennett, COLD STRIP ROLLER-YARD CALLER [address] [place] [address] PCP - General 03/24/22 Operating Room Rn Relationship Specialty Start Date End Date Jerel Bennett, COLD STRIP ROLLER-YARD CALLER [address] After Hours Family Medicine [place], [place] [phone] PCP - General 03/24/22 Reason for Visit (unrecogniz ed section and content) Reason Comments New Patient Specialty Diagnoses / Procedures Referred By Contanne t Referred To Contact Urology Diagnoses New pt/ dx: prostate cancer, hx of lymphoma / referred by: second opinion/ PCP: Jerel Bennett, RAGINI / has seen urologist- Dr. Kehinde Lopez [facility] in [place]/ 11/14/23 bx in chart Procedures NEW SURG Self, Self Brent Guido MD [address] [place] [id number] Phone: tel: fax: Referral ID Status Reason Start Date Expiration Date V isits Requested Visits Authorized [id number] New Request 04/03/2024 04/28/2025 1 1 Reason Comments Patient Question Reason Comments colonoscopy consultation Reason Comments Established Patient Specialty Diagnoses / Procedures Referred By Contac t Referred To Contact Hematology Diagnoses Diagnosis: MALT Lymphoma Diagnosed at: Referring Dr/Office: Self Biopsy performed: Facility Bx done at: Imaging done: Facility Imaging done at: Procedures NEW HEMATOLOGY Self, Self Iris Nava MD [address] [place] [phone] Referral ID Status Reason Start Date Expiration Date V isits Requested Visits Authorized [id number] New Request 05/31/2023 06/24/2024 1 1 Specialty Diagnoses / Procedures Referred By Contac t Referred To Contact Cardiology Diagnoses Atrial fibrillation, unspecified type (HCC) Procedures CONSULT TO CARDIOLOGY OFFICE/OUTPATIENT [facility] MDM 60 MINUTES Erin Rivera MD [address] [place] [address] Referral ID Status Reason Start Date Expiration Date V isits Requested Visits Authorized [id number] Closed PCP Requested Referral 02/24/2023 02/24/2024 1 1 Reason Onset Date Comments Procedure 06/26/2023 Breath Test H Py renato Reason Comments Follow Up Reason Comments Patient Question Prep Reason Comments Established Patient Reason Comments Orders Reason Comments Follow-up Reason Comments Radiology XR Reason Comments Pre-Op Visit Reason Comments Follow Up Established Patient Reason Comments Follow Up Established Patient Lymphoma Reason Comments Toe Pain (Toe) Reason Comments Abdominal Pain Left lower side, rad iates to back Scheduled Active and Recently Administ ered Medications (unrecognized section and content) Medication Order 11/12/2023 11/13/2023 11/14/2023 lidocaine PF (Xylocaine) 10 mg/mL (1 %) injection 1 mg 1 mg (0.1 mL), subcutaneous, Once, On Mon11/14/23 at 0930, For 1 dose, Recovery (only), To be used for IV insertion ONLY 0930 (Due) Continuous Medication Order 11/12/2023 11/13/2023 11/14/2023 lactated Ringer's infusion 20 mL/hr, intravenous, Continuous, Starting on Mon11/14/23 at 0800, Preprocedure 0745 (New Bag - Prov ider: Samantha Mcwilliams RN) lactated Ringer's infusion 100 mL/hr, intravenous, Continuous, Starting on Mon11/14/23 at 0930, Recovery (only) 0917 (New Bag - Prov ider: Daniella Barrett RN) PRN Medication Order 11/12/2023 11/13/2023 11/14/2023 bacitracin ointment (CANCELED) As needed, Starting on Mon11/14/23 at 0852, Intraprocedure 0852 (Given - Provid er: Russell Gale MD) BUPivacaine HCl (Marcaine) 0.5 % (5 mg/mL) 8 mL, lidocaine PF (Xylocaine) 10 mg/mL (1 %) 8 mL, sodium bicarbonate 4 mEq syringe (CANCELED) As needed, Starting on Mon11/14/23 at 0818, Intraprocedure 0852 (Given - Provid er: Russell Gale MD - Comment: PERINEUM) HYDROmorphone (Dilaudid) injection 0.2 mg 0.2 mg, intravenous, Every 5 min PRN, pain moderate (4-6), first line, Starting on Mon11/14/23 at 0902, Recovery (only), Max total of 4 mg regardless of dose. HYDROmorphone (Dilaudid) injection 0.5 mg 0.5 mg, intravenous, Every 5 min PRN, pain severe (7-10), first line, Starting on Mon11/14/23 at 0902, Recovery (only), Max total of 4 mg regardless of dose. ondansetron (Zofran) injection 4 mg 4 mg, intravenous, Once as needed, nausea/vomiting, first line, Starting on Mon11/14/23 at 0902, For 1 dose, Recovery (only), When administering via IV Push, administer over 3-5 minutes. oxyCODONE (Roxicodone) immediate release tablet 5 mg 5 mg, oral, Every 4 hours PRN, pain mild (1-3), first line, Starting on Mon11/14/23 at 0902, Recovery (only), When able to take oral medications., If ordered PRN for pain, nurse is permitted to administer this medication for higher pain scores based on patient preference? Yes oxyCODONE (Roxicodone) immediate release tablet 5 mg 5 mg, oral, Every 4 hours PRN, pain severe (7-10), second line, Starting on Mon11/14/23 at 0902, Recovery (only), When able to take oral medications., If ordered PRN for pain, nurse is permitted to administer this medication for higher pain scores based on patient preference? Yes oxygen (O2) therapy inhalation, Continuous PRN - O2/gases, other, Starting on Mon11/14/23 at 09, Recovery (only), Device: Nasal Cannula, Rate in liters per minute: 2 LPM, Keep O2 Sat Above: 92% promethazine (Phenergan) 6.25 mg in sodium chloride 0.9% 50 mL IV 6.25 mg, intravenous, Administer over 15 Minutes, Once as needed, Nausea/vomiting, second line, Starting on Mon11/14/23 at 0902, For 1 dose, Recovery (only) Scheduled Medication Order 09/14/2024 09/15/2024 09/16/2024 ketorolac (TORADOL) injection 15 mg (COMPLETED) 15 mg, IntraVENous, ONCE, 1 dose, On Mon09/16/24 at 2130, Do not administer for more than 5 days. 2258 (Given - Provid er: Kera Alvarenga RN) ondansetron (ZOFRAN) injection 4 mg (COMPLETED) 4 mg, IntraVENous, ONCE, 1 dose, On Mon09/16/24 at 2130 2258 (Given - Provid er: Kera Alvarenga RN) PRN Medication Order 09/14/2024 09/15/2024 09/16/2024 iopamidol (ISOVUE-370) 76 % injection 75 mL (COMPLETED) 75 mL, IntraVENous, IMG ONCE PRN, 1 dose, Starting on Mon09/16/24 at 4, Until Mon09/16/24 at 2115, Other 2115 (Given - Provid er: Breanna Rosales) Ordered Prescriptions (unrec ognized section and content) Prescription Sig Dispense Quantity Refills Last Filled Start Date End Date lidocaine (LIDODERM) 5 % Place 1 patch onto the skin daily 12 hours on, 12 hours off. 30 patch 09/16/2024 ketorolac (TORADOL) 10 MG tablet Take 1 tablet by mouth every 6 hours as needed for Pain 20 tablet 09/16/2024 FOR RECORDS PERTAINING TO PATIENTS WHO ARE [...] BE BASED ON THE PRIMARY CLINICAL RECORDS. [employer] provides no warranty or guarantee of the accuracy or completeness of information in this document.
[2025-01-28 22:34] LABS: AST(SGOT) 22 U/L (<=37); Alanine Aminotransfer ALT/SGPT 27 U/L (<=46); Albumin, Serum 4.3 g/dL (3.4-4.8); Alkaline Phosphatase 73 U/L (40-129); Anion Gap 9 (5-15); BUN 25 mg/dL (4-19); BUN/Creat Ratio 17.1 RATIO (10-20); Calcium,Total 9.7 mg/dL (7.6-11.0); Carbon Dioxide 28.7 mmol/L (21.0-32.0); Chloride 105 mmol/L (98-108); Globulin 2.9 g/dL (2.2-4.2); Glucose 92 mg/dL (70-99); Lipase 26 U/L (13-75); PSA,Total- Diagnostic 9.76 ng/mL (0.00-4.00); Potassium 5.1 mmol/L (3.3-5.1)
[2025-01-30 13:08] LABS: PSA, Free 0.94 ng/mL; PSA, Free % 9.1 % (.); PSA, Total Ultrasensitive 10.300 ng/mL (0.000-4.000)
== END 2025-01-28 23:59 | disposition home or self-care (01) ==
PROVIDERS: PCP Nurse Practitioner; Visit Provider Nurse Practitioner
DX: Z12.4 Encounter for screening for malignant neoplasm of cervix (principal); E11.65 Type 2 diabetes mellitus with hyperglycemia; R89.7 Abnormal histological findings in specimens from other organs, systems and tissues; R97.20 Elevated prostate specific antigen [PSA]; E03.9 Hypothyroidism, unspecified; R35.0 Frequency of micturition
CPT/HCPCS: 80053; 83690; 84153; 84154; 84443